=== PATIENT | female | born 1955 | race Caucasian/White ===

== ENCOUNTER 2021-03-18 13:25 | Inpatient (IN) | payer BC ==
[2021-03-18] MEDS ORDERED: DEXAMETHASONE SOD PHOSPHATE 10 MG/ML 1 ML VIAL IVP STA (18:19)
[2021-03-18] MEDS ORDERED: IBUPROFEN 600 MG TAB PO STA (18:29)
[2021-03-18 18:40] LABS: Basophils % (A) 0 %; Eosinophils % (A) 0 %; HCT 40.9 % (34.0-46.0); HGB 14.5 gm/dL (11.4-16.0); Lymphocytes # (A) 0.8 k/uL (1.0-4.8); Lymphocytes % (A) 16 %; MCH 31.1 pg (25.0-35.0); MCHC 35.4 g/dL (31.0-37.0); MCV 87.8 fL (80.0-100.0); Mean Platelet Volume 7.8; Monocytes # (A) 0.3 k/uL (0-1.0); Monocytes % (A) 6 %; Neutrophils # (A) 3.9 k/uL (1.3-7.7); Neutrophils % (A) 75 %; Platelet Count 287 k/uL (150-450); RBC 4.66 m/uL (3.80-5.40); RDW 13.1 % (11.5-15.5); WBC 5.2 k/uL (3.8-10.6)
[2021-03-18 18:55] LABS: Albumin 3.5 g/dL (3.5-5.0); Calcium 9.2 mg/dL (8.4-10.2); Potassium 4.5 mmol/L (3.5-5.1); Total Bilirubin 0.3 mg/dL (0.2-1.3); Total Protein 6.3 g/dL (6.3-8.2)
--- NOTE | 2021-03-18 19:06 | XR ---
EXAMINATION TYPE: XR chest 2V DATE OF EXAM: 03/18/2021 COMPARISON: NONE HISTORY: COVID TECHNIQUE: Frontal and lateral views of the chest are obtained. FINDINGS: Reticular and some patchy opacities over lower lungs, left greater than right. No effusion or pneumothorax. The heart is not enlarged. The pulmonary vasculature is within normal limits. IMPRESSION: Reticular and some minimal opacities in the lower lungs bilaterally.
[2021-03-18 19:17] LABS: C Reactive Protein 18.6 mg/dL (<1.0)
[2021-03-18] MEDS ORDERED: NALOXONE 0.4 MG/ML 1 ML VIAL IV PRN (19:54)
[2021-03-18] MEDS ORDERED: IPRATROPIUM-ALBUTEROL 3 ML NEB INHALATION SCH (20:00)
--- NOTE | 2021-03-18 20:01 | ED ---
SOB HPI - General Chief Complaint: Shortness of Breath Stated Complaint: Covid, wants BAM Time Seen by Provider: 03/18/21 17:51 Source: patient, RN notes reviewed Mode of arrival: ambulatory Limitations: no limitations - History of Present Illness Initial Comments: Patient is a 65-year-old female that presents to the emergency department complaining of shortness of breath. She has been having cold-like symptoms for the past 12-13 days. Patient notes that she feels like her oxygen is low. Patient notes no other issues or complaints. She was otherwise well-appearing. She denied any chest pain headache nausea vomiting diarrhea constipation fever fatigue chills. - Related Data Home Medications Medication Instructions Recorded Confirmed Atorvastatin [Lipitor] 40 mg PO DAILY 09/28/15 03/18/21 Glimepiride [Amaryl] 1 mg PO BID 09/28/15 03/18/21 metFORMIN HCL [Glucophage] 1,000 mg PO BID 09/28/15 03/18/21 Levothyroxine Sodium [Synthroid] 75 mcg PO DAILY 03/18/21 03/18/21 Semaglutide [Ozempic] 0.25 mg SQ SA 03/18/21 03/18/21 ramipriL [Altace] 2.5 mg PO HS 03/18/21 03/18/21 Allergies Allergy/AdvReac Type Severity Reaction Status Date / Time onion Allergy Unknown Verified 03/18/21 19:18 Review of Systems ROS Statement: Those systems with pertinent positive or pertinent negative responses have been documented in the HPI. ROS Other: All systems not noted in ROS Statement are negative. Past Medical History Past Medical History: Diabetes Mellitus, Hyperlipidemia, Hypertension, Osteoarthritis (OA) Additional Past Medical History / Comment(s): BUNION LEFT FOOT History of Any Multi-Drug Resistant Organisms: None Reported Past Surgical History: Appendectomy, Orthopedic Surgery, Tonsillectomy Additional Past Surgical History / Comment(s): BRY FEET MULT SX, CYST REMOVED WRIST Past Anesthesia/Blood Transfusion Reactions: No Reported Reaction Past Psychological History: No Psychological Hx Reported Smoking Status: Never smoker Past Alcohol Use History: Occasional Past Drug Use History: None Reported - Past Family History Father Family Medical History: Cancer Additional Family Medical History / Comment(s): SKIN Sister(s) Family Medical History: Cancer Additional Family Medical History / Comment(s): SKIN General Exam Limitations: no limitations General appearance: alert, in no apparent distress Head exam: Present: atraumatic, normocephalic, normal inspection Eye exam: Present: normal appearance, PERRL, EOMI. Absent: scleral icterus, conjunctival injection, periorbital swelling ENT exam: Present: normal exam, mucous membranes moist Neck exam: Present: normal inspection Respiratory exam: Present: normal lung sounds bilaterally. Absent: respiratory distress, wheezes, rales, rhonchi, stridor Cardiovascular Exam: Present: regular rate, normal rhythm, normal heart sounds. Absent: systolic murmur, diastolic murmur, rubs, gallop, clicks Extremities exam: Present: normal inspection, full ROM, normal capillary refill. Absent: tenderness, pedal edema, joint swelling, calf tenderness Neurological exam: Present: alert, oriented X3 Psychiatric exam: Present: normal affect, normal mood Skin exam: Present: warm, dry, intact, normal color. Absent: rash Course Vital Signs 03/18/21 03/18/21 15:35 17:58 Temperature 99.1 F 98.9 F Pulse Rate 109 H 99 Respiratory 20 22 Rate Blood Pressure 105/73 127/73 O2 Sat by Pulse 88 L 88 L Oximetry Medical Decision Making - Medical Decision Making 85-year-old female with Covid like symptoms for the past 1213 days. Covid test, labs, chest x-ray ordered. Covid test positive. Patient does not meet criteria for monoclonal antibodies due to low oxygen saturation room air 88. Patient is also symptomatic for longer than 10 days. 2 L of oxygen via nasal cannula ordered. Oxygen saturation 93-94%. Chest x-ray showed bilateral patchy infiltrates consistent with Covid. Case discussed with Dr. Bryant, patient will be admitted to hospital. Dr. Messina was consulted, wants pulmonology on consult. - Lab Data Result diagrams: 03/18/21 18:27 03/18/21 18:27 Lab Results 03/18/21 03/18/21 03/18/21 Range/Units 15:43 18:27 18:27 WBC 5.2 (3.8-10.6) k/uL RBC 4.66 (3.80-5.40) m/uL Hgb 14.5 (11.4-16.0) gm/dL Hct 40.9 (34.0-46.0) % MCV 87.8 (80.0-100.0) fL MCH 31.1 (25.0-35.0) pg MCHC 35.4 (31.0-37.0) g/dL RDW 13.1 (11.5-15.5) % Plt Count 287 (150-450) k/uL MPV 7.8 Neutrophils % 75 % Lymphocytes % 16 % Monocytes % 6 % Eosinophils % 0 % Basophils % 0 % Neutrophils # 3.9 (1.3-7.7) k/uL Lymphocytes # 0.8 L (1.0-4.8) k/uL Monocytes # 0.3 (0-1.0) k/uL Eosinophils # 0.0 (0-0.7) k/uL Basophils # 0.0 (0-0.2) k/uL Sodium 131 L (137-145) mmol/L Potassium 4.5 (3.5-5.1) mmol/L Chloride 95 L (98-107) mmol/L Carbon Dioxide 28 (22-30) mmol/L Anion Gap 8 mmol/L BUN 22 H (7-17) mg/dL Creatinine 0.89 (0.52-1.04) mg/dL Est GFR (CKD-EPI)AfAm 79 (>60 ml/min/1.73 sqM) Est GFR (CKD-EPI)NonAf 69 (>60 ml/min/1.73 sqM) Glucose 231 H (74-99) mg/dL Calcium 9.2 (8.4-10.2) mg/dL Total Bilirubin 0.3 (0.2-1.3) mg/dL AST 43 H (14-36) U/L ALT 28 (4-34) U/L Alkaline Phosphatase 87 (38-126) U/L Lactate Dehydrogenase 1108 H (313-618) U/L C-Reactive Protein 18.6 H (<1.0) mg/dL Total Protein 6.3 (6.3-8.2) g/dL Albumin 3.5 (3.5-5.0) g/dL Coronavirus (PCR) Detected A (Not Detectd) - Radiology Data Radiology results: report reviewed, image reviewed Chest x-ray: Reticular and some minimal opacities in the lower lungs bi laterally. Disposition Clinical Impression: COVID, Hypoxia Disposition: ADMITTED IP TO THIS [facility] Condition: Stable Is patient prescribed a controlled substance at d/c from ED?: No Referrals: Karely Bryant DO [Primary Care Provider] - 1-2 days Time of Disposition: 20:01
[2021-03-18] MEDS: SODIUM CHLORIDE 0.9% 1,000 ML IV SCH (21:27)
[2021-03-19] MEDS ORDERED: DEXAMETHASONE SOD PHOSPHATE 10 MG/ML 1 ML VIAL IVP SCH (09:00)
[2021-03-19] MEDS: ASCORBIC ACID 500 MG TAB PO SCH (09:19)
[2021-03-19] MEDS: SODIUM CHLORIDE 0.9% 1,000 ML IV SCH ×3 (09:19→22:05)
[2021-03-19] MEDS: LEVOTHYROXINE 75 MCG TAB PO SCH (09:19)
[2021-03-19] MEDS: DEXAMETHASONE SOD PHOSPHATE 10 MG/ML 1 ML VIAL IVP SCH (09:20)
[2021-03-19] MEDS: ENOXAPARIN 40 MG/0.4 ML SYRINGE SQ SCH (09:20)
[2021-03-19] MEDS ORDERED: ALBUTEROL HFA INHALER INHALATION PRN (11:04)
[2021-03-19] MEDS: ZINC SULFATE 220 MG CAP PO SCH (11:58)
[2021-03-19] MEDS: PANTOPRAZOLE 40 MG/10 ML VIAL IVP SCH (11:58)
[2021-03-19] MEDS: CHOLECALCIFEROL 25 MCG (1000 IU) TABLET PO SCH (11:59)
[2021-03-19 12:44] LABS: African American GFR (CKD) >90 (>60 ml/min/1.73 sqM); Anion Gap 9 mmol/L; Blood Urea Nitrogen 27 mg/dL (7-17); Calcium 8.8 mg/dL (8.4-10.2); Carbon Dioxide 24 mmol/L (22-30); Chloride 99 mmol/L (98-107); Glucose 432 mg/dL (74-99); Non-African American GFR(CKD) 82 (>60 ml/min/1.73 sqM); Sodium 132 mmol/L (137-145)
[2021-03-19] MEDS: ALBUTEROL HFA INHALER INHALATION SCH ×3 (12:51→19:30)
[2021-03-19 13:31] LABS: Glucose,Whole Blood 464 mg/dL (75-99)
[2021-03-19] MEDS ORDERED: INSULIN ASPART (NovoLOG) 100 UNIT/ML VIAL SQ ONE (14:00)
[2021-03-19] MEDS: INSULIN ASPART (NovoLOG) 100 UNIT/ML VIAL SQ SCH ×3 (14:04→22:04)
--- NOTE | 2021-03-19 14:52 | P.CNPUL ---
History of Present Illness Consult date: 03/19/21 Reason for consult: dyspnea, pneumonia History of present illness: 65-year-old female patient presented with symptoms of shortness of breath and patient was diagnosed having COVID 19 to pneumonia. The patient symptoms started approximately 11 days ago. She also had diminished appetite, weakness, tiredness, fatigue, cough along with some shortness of breath. The chest x-ray showed reticular and some minimal opacities in the lower lung merino bilaterally. The patient was found to be hypoxic and the patient was placed on oxygen at 3 L and the oxygen flows being titrated to maintain saturation above 90%. Subsequently she was brought up to 6 L to maintain a good oxygen saturation. Her blood work shows a white cell count of 5.2 with a hemoglobin of 13.5 and a platelet count of 287. The d-dimer is at 0.3. The LDH level was 1108 and the CRP level is at 18.6, the rest of the electrolytes are all within normal limits. 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 Blood sugars are quite elevated at this point in time. The patient is receiving Decadron significant IV every 24 hours. Outpatient blood sugar management is through metformin 1 g twice a day and glimepiride 1 mg by mouth twice a day. The patient. The patient was already given 12 units of NovoLog insulin. Past Medical History Past Medical History: Diabetes Mellitus, Hyperlipidemia, Hypertension, Osteoarthritis (OA) Additional Past Medical History / Comment(s): BUNION LEFT FOOT History of Any Multi-Drug Resistant Organisms: None Reported Past Surgical History: Appendectomy, Orthopedic Surgery, Tonsillectomy Additional Past Surgical History / Comment(s): BRY FEET MULT SX, CYST REMOVED WRIST Past Anesthesia/Blood Transfusion Reactions: No Reported Reaction Past Psychological History: No Psychological Hx Reported Smoking Status: Never smoker Past Alcohol Use History: Occasional Past Drug Use History: None Reported - Past Family History Father Family Medical History: Cancer Additional Family Medical History / Comment(s): SKIN Sister(s) Family Medical History: Cancer Additional Family Medical History / Comment(s): SKIN Medications and Allergies Home Medications Medication Instructions Recorded Confirmed Type Atorvastatin [Lipitor] 40 mg PO DAILY 09/28/15 03/18/21 History Glimepiride [Amaryl] 1 mg PO BID 09/28/15 03/18/21 History metFORMIN HCL [Glucophage] 1,000 mg PO BID 09/28/15 03/18/21 History Levothyroxine Sodium [Synthroid] 75 mcg PO DAILY 03/18/21 03/18/21 History Semaglutide [Ozempic] 0.25 mg SQ SA 03/18/21 03/18/21 History ramipriL [Altace] 2.5 mg PO HS 03/18/21 03/18/21 History Allergies Allergy/AdvReac Type Severity Reaction Status Date / Time onion Allergy Unknown Verified 03/18/21 19:18 Physical Exam Vitals: Vital Signs Temp Pulse Resp BP Pulse Ox 03/19/21 13:37 98.1 F 84 18 127/65 86 L 03/19/21 06:13 98.1 F 68 18 115/74 95 03/19/21 02:52 85 20 127/87 94 L 03/18/21 21:37 55 L 17 113/67 100 03/18/21 17:58 98.9 F 99 22 127/73 88 L 03/18/21 15:35 99.1 F 109 H 20 105/73 88 L Intake and Output 03/18/21 03/19/21 03/19/21 22:59 06:59 14:59 Other: Weight 70.307 kg General appearance: alert, in no apparent distress, breathing is nonlabored and the patient is currently on 6 L of oxygen by nasal cannula Head exam: Present: atraumatic, normocephalic, normal inspection Eye exam: Present: normal appearance, PERRL, EOMI. Absent: scleral icterus, conjunctival injection, periorbital swelling ENT exam: Present: normal exam, mucous membranes moist Neck exam: Present: normal inspection Respiratory exam: Present: The patient has bilateral crackles in the mid and lower lung merino bilaterally Cardiovascular Exam: Present: regular rate, normal rhythm, normal heart sounds. Absent: systolic murmur, diastolic murmur, rubs, gallop, clicks Extremities exam: Present: normal inspection, full ROM, normal capillary refill. Absent: tenderness, pedal edema, joint swelling, calf tenderness Neurological exam: Present: alert, oriented X3 Psychiatric exam: Present: normal affect, normal mood Skin exam: Present: warm, dry, intact, normal color. Absent: rash Results - Laboratory Findings CBC and BMP: 03/18/21 18:27 03/19/21 11:54 PT/INR, D-dimer D-Dimer 0.39 mg/L FEU (<0.60) 03/18/21 20:07 Abnormal lab findings: Abnormal Labs 03/18/21 03/18/21 03/18/21 15:43 18:27 18:27 Lymphocytes # 0.8 L Sodium 131 L Chloride 95 L BUN 22 H Glucose 231 H POC Glucose (mg/dL) AST 43 H Lactate Dehydrogenase 1108 H C-Reactive Protein 18.6 H Coronavirus (PCR) Detected A 03/19/21 03/19/21 11:54 13:30 Lymphocytes # Sodium 132 L Chloride BUN 27 H Glucose 432 H POC Glucose (mg/dL) 464 H AST Lactate Dehydrogenase C-Reactive Protein Coronavirus (PCR) - Diagnostic Findings Chest x-ray: image reviewed Assessment and Plan Plan: 1 acute bilateral COVID 19 related pneumonia. This patient is not vaccinated. The patient became symptomatic approximately 11 days ago. The patient is presenting with worsening shortness of breath and currently the patient has hypoxic respiratory failure on 6 L of oxygen by nasal cannula 2 acute hypoxic respiratory failure secondary to above 3 elevated inflammatory markers including LDH, mildly elevated D dimers. Secondary to above. 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 Maintain a saturation above 90% currently on 6 L Monitor inflammatory markers and check a baseline pro-calcitonin level No need for any antibiotics at this point in time Initiate Decadron 6 mg IV every 24 hours The patient is outside the window for Remdesivir Monitor the blood sugar and give this patient 15 units of Levemir insulin along with a sliding scale coverage Multivitamins for COVID 19 Lovenox 40 mg for DVT prophylaxis Resume all medications We'll continue to follow.
[2021-03-19] MEDS: INSULIN DETEMIR (LEVEMIR) 100 UNIT/ML SYR SQ SCH (16:53)
[2021-03-19 18:03] LABS: Glucose,Whole Blood 326 mg/dL (75-99)
--- NOTE | 2021-03-19 18:46 | P.HPIM ---
History of Present Illness H&P Date: 03/19/21 Chief Complaint: Worsening dyspnea This is 65-year-old female with past medical history of diabetes mellitus, hyperlipidemia, hypertension, osteoarthritis, no smoking history presented to the ER with worsening dyspnea 10 days accompanied by loss of appetite, fatigue, cough. Denies fevers or sweats. Denies muscle aches. On admission patient was febrile with temperature 99.1, WBC 5.2, tachycardic, cachectic, maintaining O2 sats of 88% on room air. Patient's respiratory status has further worsened and currently maintaining O2 sats of mid 90s on 3 L nasal cannula. Displays exertional dyspnea after ambulating from [place]. Coronavirus PCR positive. D-dimer 0.39, LDH 1108, CRP 18.6. Chest x-ray reporting reticular and some minimal patchy opacity's over bilateral lower lungs, left greater than right. Hemoglobin 14.5, platelets 287. Sodium currently 132, potassium 5, BUN 27, creatinine 0.77. A.m. Accu-Chek currently being obtained, the blood sugar 231 last night. Denies chest pain, palpitations. Review of Systems ROS Statement: Those systems with pertinent positive or pertinent negative responses have been documented in the HPI. ROS Other: All systems not noted in ROS Statement are negative. Past Medical History Past Medical History: Diabetes Mellitus, Hyperlipidemia, Hypertension, Osteoarthritis (OA) Additional Past Medical History / Comment(s): BUNION LEFT FOOT History of Any Multi-Drug Resistant Organisms: None Reported Past Surgical History: Appendectomy, Orthopedic Surgery, Tonsillectomy Additional Past Surgical History / Comment(s): BRY FEET MULT SX, CYST REMOVED WRIST Past Anesthesia/Blood Transfusion Reactions: No Reported Reaction Past Psychological History: No Psychological Hx Reported Smoking Status: Never smoker Past Alcohol Use History: Occasional Past Drug Use History: None Reported - Past Family History Father Family Medical History: Cancer Additional Family Medical History / Comment(s): SKIN Sister(s) Family Medical History: Cancer Additional Family Medical History / Comment(s): SKIN Medications and Allergies Home Medications Medication Instructions Recorded Confirmed Type Atorvastatin [Lipitor] 40 mg PO DAILY 09/28/15 03/18/21 History Glimepiride [Amaryl] 1 mg PO BID 09/28/15 03/18/21 History metFORMIN HCL [Glucophage] 1,000 mg PO BID 09/28/15 03/18/21 History Levothyroxine Sodium [Synthroid] 75 mcg PO DAILY 03/18/21 03/18/21 History Semaglutide [Ozempic] 0.25 mg SQ SA 03/18/21 03/18/21 History ramipriL [Altace] 2.5 mg PO HS 03/18/21 03/18/21 History Allergies Allergy/AdvReac Type Severity Reaction Status Date / Time onion Allergy Unknown Verified 03/18/21 19:18 Physical Exam Vitals: Vital Signs Temp Pulse Resp BP Pulse Ox 03/19/21 13:37 98.1 F 84 18 127/65 86 L 03/19/21 06:13 98.1 F 68 18 115/74 95 03/19/21 02:52 85 20 127/87 94 L 03/18/21 21:37 55 L 17 113/67 100 PHYSICAL EXAM: VITAL SIGNS: As above GENERAL: Sitting up on stretcher, no acute distress HEENT: Conjunctivae normal. eyes normal. Oral mucosa dry NECK: No JVD. No thyroid enlargement. No LNs CARDIOVASCULAR: S1, S2 regular.. No murmur RESPIRATION: Breath sounds diminished in the bases. ABDOMEN: Soft, nontender . No guarding. no masses palpable. Bowel sounds heard. LEGS: No edema. no swelling PSYCHIATRY: Alert and oriented X3, mood and affect normal. NERVOUS SYSTEM: Cranial N 2-12 grossly normal. Moves all 4 limbs. No focal deficits. Strength and sensation grossly intact.. Skin: Warm, dry, no rash Results CBC & Chem 7: 03/18/21 18:27 03/19/21 11:54 Labs: Abnormal Lab Results - Last 24 Hours (Table) 03/18/21 03/18/21 03/19/21 Range/Units 18:27 18:27 11:54 Lymphocytes # 0.8 L (1.0-4.8) k/uL Sodium 131 L 132 L (137-145) mmol/L Chloride 95 L (98-107) mmol/L BUN 22 H 27 H (7-17) mg/dL Glucose 231 H 432 H (74-99) mg/dL POC Glucose (mg/dL) (75-99) mg/dL AST 43 H (14-36) U/L Lactate Dehydrogenase 1108 H (313-618) U/L C-Reactive Protein 18.6 H (<1.0) mg/dL 03/19/21 03/19/21 Range/Units 13:30 17:59 Lymphocytes # (1.0-4.8) k/uL Sodium (137-145) mmol/L Chloride (98-107) mmol/L BUN (7-17) mg/dL Glucose (74-99) mg/dL POC Glucose (mg/dL) 464 H 326 H (75-99) mg/dL AST (14-36) U/L Lactate Dehydrogenase (313-618) U/L C-Reactive Protein (<1.0) mg/dL Assessment and Plan Assessment: Acute COVID-19 pneumonia Acute hypoxic respiratory failure secondary to the above Hyponatremia, mild Diabetes mellitus, hyperglycemic- Hypothyroidism Hyperlipidemia Plan: Continue on current medication regime ,monitoring and symptomatic treatme nt. Covid cocktail initiated with Decadron IV push ordered. A.m. Accu-Chek being obtained. NovoLog sliding scale, lantus ordered. Pulmonary consult in place. The impression and plan of care has been dictated as directed. : I performed a history and examination of this patient, discussed the same with the dictator. I agree with the dictator's note ,documented as a scribe. Any additional findings or plans will be noted.
[2021-03-19 21:52] LABS: Glucose,Whole Blood 282 mg/dL (75-99)
[2021-03-19] MEDS: lisinopriL 10 MG TAB PO SCH (22:04)
[2021-03-19] MEDS: ATORVASTATIN 40 MG TAB PO SCH (22:04)
[2021-03-20] MEDS: SODIUM CHLORIDE 0.9% 1,000 ML IV SCH ×2 (04:56→12:34)
[2021-03-20] MEDS: ACETAMINOPHEN TAB 325 MG TAB PO PRN (05:00)
[2021-03-20] MEDS: LEVOTHYROXINE 75 MCG TAB PO SCH (05:48)
[2021-03-20 07:27] LABS: Glucose,Whole Blood 169 mg/dL (75-99)
[2021-03-20] MEDS: PANTOPRAZOLE 40 MG/10 ML VIAL IVP SCH (07:59)
[2021-03-20] MEDS: DEXAMETHASONE SOD PHOSPHATE 10 MG/ML 1 ML VIAL IVP SCH (08:00)
[2021-03-20] MEDS: INSULIN ASPART (NovoLOG) 100 UNIT/ML VIAL SQ SCH ×4 (08:00→21:24)
[2021-03-20] MEDS: INSULIN DETEMIR (LEVEMIR) 100 UNIT/ML SYR SQ SCH (08:00)
[2021-03-20] MEDS: CHOLECALCIFEROL 25 MCG (1000 IU) TABLET PO SCH (08:01)
[2021-03-20] MEDS: ENOXAPARIN 40 MG/0.4 ML SYRINGE SQ SCH (08:01)
[2021-03-20] MEDS: ZINC SULFATE 220 MG CAP PO SCH (08:01)
[2021-03-20] MEDS: ASCORBIC ACID 500 MG TAB PO SCH (08:01)
[2021-03-20] MEDS: ALBUTEROL HFA INHALER INHALATION SCH ×4 (09:01→19:02)
[2021-03-20 09:38] LABS: C Reactive Protein 7.1 mg/dL (0.00-0.80)
[2021-03-20] MEDS ORDERED: INSULIN DETEMIR (LEVEMIR) 100 UNIT/ML SYR SQ ONE (10:36)
--- NOTE | 2021-03-20 10:44 | P.PN ---
Subjective Progress Note Date: 03/20/21 This is 65-year-old female with past medical history of diabetes mellitus, hyperlipidemia, hypertension, osteoarthritis, no smoking history presented to the ER with worsening dyspnea 10 days accompanied by loss of appetite, fatigue, cough. Denies fevers or sweats. Denies muscle aches. On admission patient was febrile with temperature 99.1, WBC 5.2, tachycardic, cachectic, maintaining O2 sats of 88% on room air. Patient's respiratory status has further worsened and currently maintaining O2 sats of mid 90s on 3 L nasal cannula. Displays exertional dyspnea after ambulating from [place]. Coronavirus PCR positive. D-dimer 0.39, LDH 1108, CRP 18.6. Chest x-ray reporting reticular and some minimal patc hy opacity's over bilateral lower lungs, left greater than right. Hemoglobin 14.5, platelets 287. Sodium currently 132, potassium 5, BUN 27, creatinine 0.77. A.m. Accu-Chek currently being obtained, the blood sugar 231 last night. Denies chest pain, palpitations. 03/20/2021 continues on covid cocktail .oxygen requirements worsened, currently requiring 10 L high flow nasal cannula to maintain O2 sats in the high 80s to low 90s. Reports had coughing spells last night but no cough this morning .exertional shortness of breath .Denies chest pain, palpitations. Afebrile. Ambulatory markers improving with the exception of mild increase in d- dimer.Calcitonin minimally elevated, 0.12. BMP pending. Blood sugars better improving. Objective - Vital Signs Vital signs: Vital Signs Temp 98.0 F 03/20/21 05:04 Pulse 79 03/20/21 05:04 Resp 20 03/20/21 05:04 BP 107/65 03/20/21 05:04 Pulse Ox 93 L 03/20/21 09:01 Intake & Output 03/19/21 03/20/21 03/20/21 18:59 06:59 18:59 Weight 70.307 kg Other: # Voids 1 # Bowel Movements 0 - Exam PHYSICAL EXAM: VITAL SIGNS: As above GENERAL: Alert and oriented 3, Sitting up in bed, no acute distress HEENT: Conjunctivae normal. eyes normal. Oral mucosa moist. NECK: No JVD. No thyroid enlargement. No LNs CARDIOVASCULAR: S1, S2 regular. No murmur RESPIRATION: Breath sounds diminished in the bases, fine bibasilar crackles. ABDOMEN: Soft, nontender . No guarding. no masses palpable. Bowel sounds heard. LEGS: No edema. no swelling NERVOUS SYSTEM: Cranial N 2-12 grossly normal. No focal deficits. Strength and sensation grossly intact.. Skin: Warm, dry, no rash - Labs CBC & Chem 7: 03/18/21 18:27 03/19/21 11:54 Labs: Abnormal Lab Results - Last 24 Hours (Table) 03/19/21 03/19/21 03/19/21 Range/Units 11:54 11:54 13:30 Sodium 132 L (137-145) mmol/L BUN 27 H (7-17) mg/dL Glucose 432 H (74-99) mg/dL POC Glucose (mg/dL) 464 H (75-99) mg/dL Lactate Dehydrogenase (120-246) U/L C-Reactive Protein (0.00-0.80) mg/dL Procalcitonin 0.12 H (0.02-0.09) ng/mL 03/19/21 03/19/21 03/20/21 Range/Units 17:59 21:51 04:48 Sodium (137-145) mmol/L BUN (7-17) mg/dL Glucose (74-99) mg/dL POC Glucose (mg/dL) 326 H 282 H (75-99) mg/dL Lactate Dehydrogenase 493 H (120-246) U/L C-Reactive Protein 7.10 H (0.00-0.80) mg/dL Procalcitonin (0.02-0.09) ng/mL 03/20/21 Range/Units 07:26 Sodium (137-145) mmol/L BUN (7-17) mg/dL Glucose (74-99) mg/dL POC Glucose (mg/dL) 169 H (75-99) mg/dL Lactate Dehydrogenase (120-246) U/L C-Reactive Protein (0.00-0.80) mg/dL Procalcitonin (0.02-0.09) ng/mL Assessment and Plan Assessment: Acute COVID-19 pneumonia Acute hypoxic respiratory failure secondary to the above Hyponatremia, mild Diabetes mellitus, hyperglycemic- Hypothyroidism Hyperlipidemia Plan: Continue on current medication regime ,monitoring and symptomatic treatment. Labs pending. Maintain Covid cocktail. Increase Lantus with close monitoring of Accu-Cheks. Prognosis guarded given multiple complex medical issues. The impression and plan of care has been dictated as directed. : I performed a history and examination of this patient, discussed the same with the dictator. I agree with the dictator's note ,documented as a scribe. Any additional findings or plans will be noted.
[2021-03-20 11:36] LABS: Glucose,Whole Blood 384 mg/dL (75-99)
--- NOTE | 2021-03-20 12:33 | P.PN ---
Subjective Progress Note Date: 03/20/21 65-year-old female patient presented with symptoms of shortness of breath and patient was diagnosed having COVID 19 to pneumonia. The patient symptoms started approximately 11 days ago. She also had diminished appetite, weakness, tiredness, fatigue, cough along with some shortness of breath. The chest x-ray showed reticular and some minimal opacities in the lower lung merino bilaterally. The patient was found to be hypoxic and the patient was placed on oxygen at 3 L and the oxygen flows being titrated to maintain saturation above 90%. Subsequently she was brought up to 6 L to maintain a good oxygen saturation. Her blood work shows a white cell count of 5.2 with a hemoglobin of 13.5 and a platelet count of 287. The d-dimer is at 0.3. The LDH level was 1108 and the CRP level is at 18.6, the rest of the electrolytes are all within normal limits. 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 Blood sugars are quite elevated at this point in time. The patient is receiving Decadron significant IV every 24 hours. Outpatient blood sugar management is through metformin 1 g twice a day and glimepiride 1 mg by mouth twice a day. The patient. The patient was already given 12 units of NovoLog insulin. 03/20/2021, I'm seeing the patient for a follow-up. The patient was Hospital as yesterday for complications related to COVID 19 related pneumonia. The patient was initially on 3 L of oxygen and she was brought up to 6 L and currently she is on 10 L of oxygen by nasal cannula. She is still short of breath with activity and mobility. Her inflammatory markers showed a LDH level of 493 with a CRP level of 7.1. Her levels are improved compared to yesterday. The patient otherwise has a d-dimer of 0.4. The rest of the day blood work shows a mild component of hyperglycemia and the patient is currently on Levemir insulin 20 units for blood sugar control in combination with sliding scale NovoLog. She is on 40 mg of Lovenox for DVT prophylaxis. She remains on Decadron at a dose of 6 mg IV every 24 hours. Objective - Vital Signs Vital signs: Vital Signs Temp 97.7 F 03/20/21 10:00 Pulse 87 03/20/21 10:00 Resp 18 03/20/21 10:00 BP 120/71 03/20/21 10:00 Pulse Ox 95 03/20/21 10:00 Intake & Output 03/19/21 03/20/21 03/20/21 18:59 06:59 18:59 Weight 70.307 kg Other: # Voids 1 # Bowel Movements 0 - Exam General appearance: alert, in no apparent distress, breathing is nonlabored and the patient is currently on 10 L of oxygen by nasal cannula Head exam: Present: atraumatic, normocephalic, normal inspection Eye exam: Present: normal appearance, PERRL, EOMI. Absent: scleral icterus, conjunctival injection, periorbital swelling ENT exam: Present: normal exam, mucous membranes moist Neck exam: Present: normal inspection Respiratory exam: Present: The patient has bilateral crackles in the mid and lower lung merino bilaterally Cardiovascular Exam: Present: regular rate, normal rhythm, normal heart sounds. Absent: systolic murmur, diastolic murmur, rubs, gallop, clicks Extremities exam: Present: normal inspection, full ROM, normal capillary refill. Absent: tenderness, pedal edema, joint swelling, calf tenderness Neurological exam: Present: alert, oriented X3 Psychiatric exam: Present: normal affect, normal mood Skin exam: Present: warm, dry, intact, normal color. Absent: rash - Labs CBC & Chem 7: 03/18/21 18:27 03/19/21 11:54 Labs: Abnormal Lab Results - Last 24 Hours (Table) 03/19/21 03/19/21 03/19/21 Range/Units 11:54 11:54 13:30 Sodium 132 L (137-145) mmol/L BUN 27 H (7-17) mg/dL Glucose 432 H (74-99) mg/dL POC Glucose (mg/dL) 464 H (75-99) mg/dL Lactate Dehydrogenase (120-246) U/L C-Reactive Protein (0.00-0.80) mg/dL Procalcitonin 0.12 H (0.02-0.09) ng/mL 03/19/21 03/19/21 03/20/21 Range/Units 17:59 21:51 04:48 Sodium (137-145) mmol/L BUN (7-17) mg/dL Glucose (74-99) mg/dL POC Glucose (mg/dL) 326 H 282 H (75-99) mg/dL Lactate Dehydrogenase 493 H (120-246) U/L C-Reactive Protein 7.10 H (0.00-0.80) mg/dL Procalcitonin (0.02-0.09) ng/mL 03/20/21 03/20/21 Range/Units 07:26 11:34 Sodium (137-145) mmol/L BUN (7-17) mg/dL Glucose (74-99) mg/dL POC Glucose (mg/dL) 169 H 384 H (75-99) mg/dL Lactate Dehydrogenase (120-246) U/L C-Reactive Protein (0.00-0.80) mg/dL Procalcitonin (0.02-0.09) ng/mL Assessment and Plan Plan: 1 acute bilateral COVID 19 related pneumonia. This patient is not vaccinated. The patient became symptomatic approximately 11 days ago. The patient is presenting with worsening shortness of breath and currently the patient has hypoxic respiratory failure on 10 L of oxygen by nasal cannula 2 acute hypoxic respiratory failure secondary to above 3 elevated inflammatory markers including LDH, mildly elevated D dimers. Secondary to above. 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 Maintain a saturation above 90% currently on 10 L Monitor inflammatory markers and check a baseline pro-calcitonin level due to inflammatory markers that in general improving including LDH and CRP. The pro- calcitonin level is low at 0.12. No need for any antibiotics at this point in time Initiate Decadron 6 mg IV every 24 hours The patient is outside the window for Remdesivir Monitor the blood sugar and give this patient 20 units of Levemir insulin along with a sliding scale coverage Multivitamins for COVID 19 Lovenox 40 mg for DVT prophylaxis Resume all medications We'll continue to follow.
[2021-03-20 16:50] LABS: Glucose,Whole Blood 261 mg/dL (75-99)
[2021-03-20 18:38] LABS: African American GFR (CKD) 93.4 (60.0-200.0); Anion Gap 17.6 mmol/L (10.00-18.00); BUN/Creat Ratio 29.18 Ratio (12.00-20.00); Blood Urea Nitrogen 22.7 mg/dL (9.0-27.0); Calcium 9.2 mg/dL (8.7-10.3); Carbon Dioxide 21.2 mmol/L (20.0-27.5); Non-African American GFR(CKD) 80.6 (60.0-200.0)
[2021-03-20 20:46] LABS: Glucose,Whole Blood 265 mg/dL (75-99)
[2021-03-20] MEDS: lisinopriL 10 MG TAB PO SCH (21:24)
[2021-03-20] MEDS: ATORVASTATIN 40 MG TAB PO SCH (21:24)
[2021-03-21] MEDS: SODIUM CHLORIDE 0.9% 1,000 ML IV SCH ×4 (05:30→21:41)
[2021-03-21] MEDS: LEVOTHYROXINE 75 MCG TAB PO SCH (06:08)
[2021-03-21 07:17] LABS: Glucose,Whole Blood 88 mg/dL (75-99)
[2021-03-21] MEDS: PANTOPRAZOLE 40 MG/10 ML VIAL IVP SCH (07:48)
[2021-03-21] MEDS: DEXAMETHASONE SOD PHOSPHATE 10 MG/ML 1 ML VIAL IVP SCH (07:49)
[2021-03-21] MEDS: ASCORBIC ACID 500 MG TAB PO SCH (07:49)
[2021-03-21] MEDS: ZINC SULFATE 220 MG CAP PO SCH (07:50)
[2021-03-21] MEDS: INSULIN ASPART (NovoLOG) 100 UNIT/ML VIAL SQ SCH ×4 (07:50→21:50)
[2021-03-21] MEDS: CHOLECALCIFEROL 25 MCG (1000 IU) TABLET PO SCH (07:50)
[2021-03-21] MEDS: ENOXAPARIN 40 MG/0.4 ML SYRINGE SQ SCH (07:50)
[2021-03-21] MEDS: INSULIN DETEMIR (LEVEMIR) 100 UNIT/ML SYR SQ SCH (07:57)
[2021-03-21] MEDS: ALBUTEROL HFA INHALER INHALATION SCH ×4 (08:29→19:26)
[2021-03-21 11:45] LABS: Glucose,Whole Blood 161 mg/dL (75-99)
[2021-03-21 11:59] LABS: African American GFR (CKD) 106.1 (60.0-200.0); Anion Gap 14.3 mmol/L (10.00-18.00); BUN/Creat Ratio 23.86 Ratio (12.00-20.00); Blood Urea Nitrogen 16.7 mg/dL (9.0-27.0); Calcium 8.4 mg/dL (8.7-10.3); Carbon Dioxide 22.7 mmol/L (20.0-27.5); Non-African American GFR(CKD) 91.6 (60.0-200.0); Potassium 4.2 mmol/L (3.5-5.5)
--- NOTE | 2021-03-21 13:18 | P.PN ---
Subjective Progress Note Date: 03/21/21 This is 65-year-old female with past medical history of diabetes mellitus, hyperlipidemia, hypertension, osteoarthritis, no smoking history presented to the ER with worsening dyspnea 10 days accompanied by loss of appetite, fatigue, cough. Denies fevers or sweats. Denies muscle aches. On admission patient was febrile with temperature 99.1, WBC 5.2, tachycardic, cachectic, maintaining O2 sats of 88% on room air. Patient's respiratory status has further worsened and currently maintaining O2 sats of mid 90s on 3 L nasal cannula. Displays exertional dyspnea after ambulating from [place]. Coronavirus PCR positive. D-dimer 0.39, LDH 1108, CRP 18.6. Chest x-ray reporting reticular and some minimal patc hy opacity's over bilateral lower lungs, left greater than right. Hemoglobin 14.5, platelets 287. Sodium currently 132, potassium 5, BUN 27, creatinine 0.77. A.m. Accu-Chek currently being obtained, the blood sugar 231 last night. Denies chest pain, palpitations. 03/20/2021 continues on covid cocktail .oxygen requirements worsened, currently requiring 10 L high flow nasal cannula to maintain O2 sats in the high 80s to low 90s. Reports had coughing spells last night but no cough this morning .exertional shortness of breath .Denies chest pain, palpitations. Afebrile. Ambulatory markers improving with the exception of mild increase in d- dimer.Calcitonin minimally elevated, 0.12. BMP pending. Blood sugars better improving. 03/21/21 maintaining O2 sats in the low 90s on 2 L nasal cannula. Reports minimal nonproductive cough, exertional shortness of breath, loose stools. Blood sugars controlled .Denies chest pain, palpitations. Denies diaphoresis. Afebrile. Objective - Vital Signs Vital signs: Vital Signs Temp 98.2 F 03/21/21 10:10 Pulse 71 03/21/21 10:10 Resp 20 03/21/21 10:10 BP 135/73 03/21/21 10:10 Pulse Ox 90 L 03/21/21 10:10 Intake & Output 03/20/21 03/21/21 03/21/21 18:59 06:59 18:59 Intake Total 1080 Balance 1080 Intake: Oral 1080 Other: Voiding Method Toilet # Voids 3 3 # Bowel Movements 1 - Exam PHYSICAL EXAM: VITAL SIGNS: As above GENERAL: Alert and oriented 3, Sitting up in bed,NAD HEENT: Conjunctivae normal. eyes normal. Oral mucosa moist. NECK: Supple, No JVD. CARDIOVASCULAR: S1, S2 regular. No murmur RESPIRATION: Breath sounds diminished in the bases, fine bibasilar crackles. ABDOMEN: Soft, nontender . No guarding. no masses palpable. Bowel sounds heard. LEGS: No edema. no swelling NERVOUS SYSTEM: Cranial N 2-12 grossly normal. No focal deficits. Strength and sensation grossly intact. Skin: Warm, dry, no rash - Labs CBC & Chem 7: 03/18/21 18:27 03/21/21 06:55 Labs: Abnormal Lab Results - Last 24 Hours (Table) 03/20/21 03/20/21 03/20/21 Range/Units 04:48 16:49 20:45 BUN/Creatinine Ratio 29.18 H (12.00-20.00) Ratio Glucose 207 H (70-110) mg/dL POC Glucose (mg/dL) 261 H 265 H (75-99) mg/dL Calcium (8.7-10.3) mg/dL 03/21/21 03/21/21 Range/Units 06:55 11:35 BUN/Creatinine Ratio 23.86 H (12.00-20.00) Ratio Glucose (70-110) mg/dL POC Glucose (mg/dL) 161 H (75-99) mg/dL Calcium 8.4 L (8.7-10.3) mg/dL Assessment and Plan Assessment: Acute COVID-19 pneumonia Acute hypoxic respiratory failure secondary to the above Hyponatremia, mild, resolved Diabetes mellitus, hyperglycemic hemoglobin A1c pending, in addition to steroid contribution Hypothyroidism Hyperlipidemia Plan: Continue on current medication regime ,monitoring and symptomatic treatment. Continue Covid cocktail. close monitoring of Accu-Cheks .follow closely with pulmonary.Prognosis guarded given multiple complex medical issues. The impression and plan of care has been dictated as directed. : I performed a history and examination of this patient, discussed the same with the dictator. I agree with the dictator's note ,documented as a scribe. Any additional findings or plans will be noted.
--- NOTE | 2021-03-21 13:50 | P.PN ---
Subjective Progress Note Date: 03/21/21 65-year-old female patient presented with symptoms of shortness of breath and patient was diagnosed having COVID 19 to pneumonia. The patient symptoms started approximately 11 days ago. She also had diminished appetite, weakness, tiredness, fatigue, cough along with some shortness of breath. The chest x-ray showed reticular and some minimal opacities in the lower lung merino bilaterally. The patient was found to be hypoxic and the patient was placed on oxygen at 3 L and the oxygen flows being titrated to maintain saturation above 90%. Subsequently she was brought up to 6 L to maintain a good oxygen saturation. Her blood work shows a white cell count of 5.2 with a hemoglobin of 13.5 and a platelet count of 287. The d-dimer is at 0.3. The LDH level was 1108 and the CRP level is at 18.6, the rest of the electrolytes are all within normal limits. 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 Blood sugars are quite elevated at this point in time. The patient is receiving Decadron significant IV every 24 hours. Outpatient blood sugar management is through metformin 1 g twice a day and glimepiride 1 mg by mouth twice a day. The patient. The patient was already given 12 units of NovoLog insulin. 03/20/2021, I'm seeing the patient for a follow-up. The patient was Hospital as yesterday for complications related to COVID 19 related pneumonia. The patient was initially on 3 L of oxygen and she was brought up to 6 L and currently she is on 10 L of oxygen by nasal cannula. She is still short of breath with activity and mobility. Her inflammatory markers showed a LDH level of 493 with a CRP level of 7.1. Her levels are improved compared to yesterday. The patient otherwise has a d-dimer of 0.4. The rest of the day blood work shows a mild component of hyperglycemia and the patient is currently on Levemir insulin 20 units for blood sugar control in combination with sliding scale NovoLog. She is on 40 mg of Lovenox for DVT prophylaxis. She remains on Decadron at a dose of 6 mg IV every 24 hours. On 03/21/2021 patient seen in follow-up on Gen. medical surgical floor. She is generally weak, she still requiring high flow oxygen, remains on 9 L, her pulse ox is marginal at 91, does not appear to be in any significant distress, lung sounds reveal extensive crackles at the bilateral mid and lower lung zones. Occasional cough, no phlegm production, no chest pain. Patient has been afebr ile, hemodynamically she has been stable, last d-dimer from yesterday was within normal limits at 0.43, electrolyte and renal profile on today's labs are within normal limits, LDH is improving and is down to 493, and CRP is 7.10, pro calcitonin level was negative at 0.12, is on dexamethasone 6 mg daily, she is on inhaled bronchodilators, COVID-19 vitamins, and prophylactic dose of Lovenox 40 mg daily. Objective - Vital Signs Vital signs: Vital Signs Temp 98.2 F 03/21/21 10:10 Pulse 71 03/21/21 10:10 Resp 20 03/21/21 10:10 BP 135/73 03/21/21 10:10 Pulse Ox 90 L 03/21/21 10:10 Intake & Output 03/20/21 03/21/21 03/21/21 18:59 06:59 18:59 Intake Total 1080 Balance 1080 Intake: Oral 1080 Other: Voiding Method Toilet # Voids 3 3 # Bowel Movements 1 - Exam GENERAL EXAM: Alert, very pleasant 65 yo white female on 9 l/min with pulse ox of 91% comfortable in no apparent distress. HEAD: Normocephalic/atraumatic. EYES: Normal reaction of pupils, equal size. Conjunctiva pink, sclera white. NOSE: Clear with pink turbinates. THROAT: No erythema or exudates. NECK: No masses, no JVD, no thyroid enlargement, no adenopathy. CHEST: No chest wall deformity. Symmetrical expansion. LUNGS: Equal air entry with basilar rales CVS: Regular rate and rhythm, normal S1 and S2, no gallops, no murmurs, no rubs ABDOMEN: Soft, nontender. No hepatosplenomegaly, normal bowel sounds, no guarding or rigidity. EXTREMITIES: No clubbing, no edema, no cyanosis, 2+ pulses and upper and lower extremities. MUSCULOSKELETAL: Muscle strength and tone normal. SPINE: No scoliosis or deformity SKIN: No rashes CENTRAL NERVOUS SYSTEM: Alert and oriented -3. No focal deficits, tone is normal in all 4 extremities. PSYCHIATRIC: Alert and oriented -3. Appropriate affect. Intact judgment and insight. - Labs CBC & Chem 7: 03/18/21 18:27 03/21/21 06:55 Labs: Abnormal Lab Results - Last 24 Hours (Table) 03/20/21 03/20/21 03/20/21 Range/Units 04:48 16:49 20:45 BUN/Creatinine Ratio 29.18 H (12.00-20.00) Ratio Glucose 207 H (70-110) mg/dL POC Glucose (mg/dL) 261 H 265 H (75-99) mg/dL Calcium (8.7-10.3) mg/dL 03/21/21 03/21/21 Range/Units 06:55 11:35 BUN/Creatinine Ratio 23.86 H (12.00-20.00) Ratio Glucose (70-110) mg/dL POC Glucose (mg/dL) 161 H (75-99) mg/dL Calcium 8.4 L (8.7-10.3) mg/dL Assessment and Plan Plan: Assessment: #1. acute bilateral COVID 19 related pneumonia. This patient is not vaccinated. The patient became symptomatic approximately 11 days ago. The patient is presenting with worsening shortness of breath and currently the patient has hypoxic respiratory failure on 9 L of oxygen by nasal cannula #2. acute hypoxic respiratory failure secondary to above #3. elevated inflammatory markers including LDH, mildly elevated D dimers. Secondary to above. #4. diabetes mellitus with a component of steroid use hyperglycemia #5. hypothyroidism #6. hyperlipidemia Plan: Continue current medical treatment Continue Decadron, continue Lovenox Continue multivitamins Encourage patient to self-prone, and reposition self in bed Fio2 currently at 9 l Continue to wean to keep 02 sat at 90% Will contiue to follow patient's clinical course I performed a history & physical examination of the patient and discussed their management with my nurse practitioner, Jessica Leigh. I reviewed the nurse practitioner's note and agree with the documented findings and plan of care. Lung sounds are positive for diffuse crackles throughout the lung merino. The findings and the impression was discussed with the patient. I attest to the documentation by the nurse practitioner. Time with Patient: Less than 30
[2021-03-21 16:45] LABS: Glucose,Whole Blood 275 mg/dL (75-99)
[2021-03-21 20:58] LABS: Glucose,Whole Blood 242 mg/dL (75-99)
[2021-03-21] MEDS: ATORVASTATIN 40 MG TAB PO SCH (21:51)
[2021-03-21] MEDS: ACETAMINOPHEN TAB 325 MG TAB PO PRN (21:51)
[2021-03-21] MEDS: lisinopriL 10 MG TAB PO SCH (21:51)
[2021-03-22] MEDS: LEVOTHYROXINE 75 MCG TAB PO SCH (05:43)
[2021-03-22 07:41] LABS: Glucose,Whole Blood 59 mg/dL (75-99)
[2021-03-22] MEDS: ALBUTEROL HFA INHALER INHALATION SCH ×4 (07:49→19:24)
[2021-03-22 07:55] LABS: Glucose,Whole Blood 58 mg/dL (75-99)
[2021-03-22 08:21] LABS: Glucose,Whole Blood 85 mg/dL (75-99)
[2021-03-22] MEDS: INSULIN ASPART (NovoLOG) 100 UNIT/ML VIAL SQ SCH ×4 (08:30→21:27)
[2021-03-22] MEDS: ENOXAPARIN 40 MG/0.4 ML SYRINGE SQ SCH (08:36)
[2021-03-22] MEDS: ZINC SULFATE 220 MG CAP PO SCH (08:36)
[2021-03-22] MEDS: PANTOPRAZOLE 40 MG/10 ML VIAL IVP SCH (08:36)
[2021-03-22] MEDS: CHOLECALCIFEROL 25 MCG (1000 IU) TABLET PO SCH (08:36)
[2021-03-22] MEDS: ASCORBIC ACID 500 MG TAB PO SCH (08:36)
[2021-03-22] MEDS: DEXAMETHASONE SOD PHOSPHATE 10 MG/ML 1 ML VIAL IVP SCH (08:36)
[2021-03-22] MEDS: SODIUM CHLORIDE 0.9% 1,000 ML IV SCH ×4 (08:37→19:00)
[2021-03-22] MEDS: INSULIN DETEMIR (LEVEMIR) 100 UNIT/ML SYR SQ SCH ×2 (10:37→11:04)
[2021-03-22] MEDS: ALPRAZolam 0.5 MG TAB PO PRN ×2 (11:04→17:29)
--- NOTE | 2021-03-22 11:19 | P.PN ---
Subjective Progress Note Date: 03/22/21 65-year-old female patient presented with symptoms of shortness of breath and patient was diagnosed having COVID 19 to pneumonia. The patient symptoms started approximately 11 days ago. She also had diminished appetite, weakness, tiredness, fatigue, cough along with some shortness of breath. The chest x-ray showed reticular and some minimal opacities in the lower lung merino bilaterally. The patient was found to be hypoxic and the patient was placed on oxygen at 3 L and the oxygen flows being titrated to maintain saturation above 90%. Subsequently she was brought up to 6 L to maintain a good oxygen saturation. Her blood work shows a white cell count of 5.2 with a hemoglobin of 13.5 and a platelet count of 287. The d-dimer is at 0.3. The LDH level was 1108 and the CRP level is at 18.6, the rest of the electrolytes are all within normal limits. 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 Blood sugars are quite elevated at this point in time. The patient is receiving Decadron significant IV every 24 hours. Outpatient blood sugar management is through metformin 1 g twice a day and glimepiride 1 mg by mouth twice a day. The patient. The patient was already given 12 units of NovoLog insulin. 03/20/2021, I'm seeing the patient for a follow-up. The patient was Hospital as yesterday for complications related to COVID 19 related pneumonia. The patient was initially on 3 L of oxygen and she was brought up to 6 L and currently she is on 10 L of oxygen by nasal cannula. She is still short of breath with activity and mobility. Her inflammatory markers showed a LDH level of 493 with a CRP level of 7.1. Her levels are improved compared to yesterday. The patient otherwise has a d-dimer of 0.4. The rest of the day blood work shows a mild component of hyperglycemia and the patient is currently on Levemir insulin 20 units for blood sugar control in combination with sliding scale NovoLog. She is on 40 mg of Lovenox for DVT prophylaxis. She remains on Decadron at a dose of 6 mg IV every 24 hours. On 03/21/2021 patient seen in follow-up on Gen. medical surgical floor. She is generally weak, she still requiring high flow oxygen, remains on 9 L, her pulse ox is marginal at 91, does not appear to be in any significant distress, lung sounds reveal extensive crackles at the bilateral mid and lower lung zones. Occasional cough, no phlegm production, no chest pain. Patient has been afebr ile, hemodynamically she has been stable, last d-dimer from yesterday was within normal limits at 0.43, electrolyte and renal profile on today's labs are within normal limits, LDH is improving and is down to 493, and CRP is 7.10, pro calcitonin level was negative at 0.12, is on dexamethasone 6 mg daily, she is on inhaled bronchodilators, COVID-19 vitamins, and prophylactic dose of Lovenox 40 mg daily. On today's evaluation, on 03/22/2021 patient is seen in follow-up on medical surgical floor, she is currently on 15 L per high flow nasal cannula and 100% nonrebreather mask, her oxygen requirement has increased since yesterday, she feels more short of breath but not acute distress, she is resting in bed, she is awake and alert, she is not talking much, she has been get not to the bedside co mmode, she has been trying to reposition herself in bed, but she is unable to prone, lung sounds reveal diffuse coarse crackles at bilateral bases, repeat chest x-ray and blood work for today are pending, she is currently on Decadron, prophylactic Lovenox, COVID-19 vitamins, and was not a candidate for Remdesivir, she is not vaccinated against COVID-19. Objective - Vital Signs Vital signs: Vital Signs Temp 98.2 F 03/22/21 09:51 Pulse 87 03/22/21 09:51 Resp 24 03/22/21 09:51 BP 150/86 03/22/21 09:51 Pulse Ox 93 L 03/22/21 09:51 Intake & Output 03/21/21 03/22/21 03/22/21 18:59 06:59 18:59 Other: Voiding Method Toilet # Voids 3 2 2 - Exam GENERAL EXAM: Alert, very pleasant 65 yo white female on 15 l/min and 100% nonrebreather mask with pulse ox of 91% comfortable in no apparent distress. HEAD: Normocephalic/atraumatic. EYES: Normal reaction of pupils, equal size. Conjunctiva pink, sclera white. NOSE: Clear with pink turbinates. THROAT: No erythema or exudates. NECK: No masses, no JVD, no thyroid enlargement, no adenopathy. CHEST: No chest wall deformity. Symmetrical expansion. LUNGS: Equal air entry with basilar rales CVS: Regular rate and rhythm, normal S1 and S2, no gallops, no murmurs, no rubs ABDOMEN: Soft, nontender. No hepatosplenomegaly, normal bowel sounds, no guarding or rigidity. EXTREMITIES: No clubbing, no edema, no cyanosis, 2+ pulses and upper and lower extremities. MUSCULOSKELETAL: Muscle strength and tone normal. SPINE: No scoliosis or deformity SKIN: No rashes CENTRAL NERVOUS SYSTEM: Alert and oriented -3. No focal deficits, tone is normal in all 4 extremities. PSYCHIATRIC: Alert and oriented -3. Appropriate affect. Intact judgment and insight. - Labs CBC & Chem 7: 03/18/21 18:27 03/21/21 06:55 Labs: Abnormal Lab Results - Last 24 Hours (Table) 03/21/21 03/21/21 03/21/21 Range/Units 06:55 11:35 15:25 BUN/Creatinine Ratio 23.86 H (12.00-20.00) Ratio POC Glucose (mg/dL) 161 H (75-99) mg/dL Hemoglobin A1c 6.5 H (4.0-6.0) % Calcium 8.4 L (8.7-10.3) mg/dL 03/21/21 03/21/21 03/22/21 Range/Units 16:43 20:57 07:33 BUN/Creatinine Ratio (12.00-20.00) Ratio POC Glucose (mg/dL) 275 H 242 H 59 L (75-99) mg/dL Hemoglobin A1c (4.0-6.0) % Calcium (8.7-10.3) mg/dL 03/22/21 Range/Units 07:53 BUN/Creatinine Ratio (12.00-20.00) Ratio POC Glucose (mg/dL) 58 L (75-99) mg/dL Hemoglobin A1c (4.0-6.0) % Calcium (8.7-10.3) mg/dL Assessment and Plan Plan: Assessment: #1. acute bilateral COVID 19 related pneumonia. This patient is not vaccinated. The patient became symptomatic approximately 11 days ago. The patient is presenting with worsening shortness of breath and currently the patient has hypoxic respiratory failure on 9 L of oxygen by nasal cannula. Patient was outside the window for Remdesivir, due to progressive hypoxia. She will be started on Baricitinib today on 03/22/2021 #2. Acute hypoxic respiratory failure secondary to above #3. Elevated inflammatory markers including LDH, mildly elevated D dimers. Secondary to above. #4. 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 Hypothyroidism #6. Hyperlipidemia Plan: Continue current medical treatment Continue Decadron, continue Lovenox Continue multivitamins Patient is currently requiring 15 L per high flow nasal cannula and 100% nonrebreather mask We will escalate her treatment and start her on Baricitinib Will contiue to follow patient's clinical course Fofllow up chest x-ray, inflammatory markers for today and tomorrow I for today and tomorro performed a history & physical examination of the patient and discussed their management with my nurse practitioner, Jessica Leigh. I reviewed the nurse practitioner's note and agree with the documented findings and plan of care. Lung sounds are positive for diffuse crackles throughout the lung merino. The findings and the impression was discussed with the patient. I attest to the documentation by the nurse practitioner. Time with Patient: Less than 30
[2021-03-22 11:20] LABS: Glucose,Whole Blood 164 mg/dL (75-99)
--- NOTE | 2021-03-22 11:20 | P.PN ---
Subjective Progress Note Date: 03/22/21 This is 65-year-old female with past medical history of diabetes mellitus, hyperlipidemia, hypertension, osteoarthritis, no smoking history presented to the ER with worsening dyspnea 10 days accompanied by loss of appetite, fatigue, cough. Denies fevers or sweats. Denies muscle aches. On admission patient was febrile with temperature 99.1, WBC 5.2, tachycardic, cachectic, maintaining O2 sats of 88% on room air. Patient's respiratory status has further worsened and currently maintaining O2 sats of mid 90s on 3 L nasal cannula. Displays exertional dyspnea after ambulating from BR. Coronavirus PCR positive. D-dimer 0.39, LDH 1108, CRP 18.6. Chest x-ray reporting reticular and some minimal patc hy opacity's over bilateral lower lungs, left greater than right. Hemoglobin 14.5, platelets 287. Sodium currently 132, potassium 5, BUN 27, creatinine 0.77. A.m. Accu-Chek currently being obtained, the blood sugar 231 last night. Denies chest pain, palpitations. 03/20/2021 continues on covid cocktail .oxygen requirements worsened, currently requiring 10 L high flow nasal cannula to maintain O2 sats in the high 80s to low 90s. Reports had coughing spells last night but no cough this morning .exertional shortness of breath .Denies chest pain, palpitations. Afebrile. Ambulatory markers improving with the exception of mild increase in d- dimer.Calcitonin minimally elevated, 0.12. BMP pending. Blood sugars better improving. 03/21/21 maintaining O2 sats in the low 90s on 2 L nasal cannula. Reports minimal nonproductive cough, exertional shortness of breath, loose stools. Blood sugars controlled .Denies chest pain, palpitations. Denies diaphoresis. Afebrile. 03/22/2021 O2 requirements worsened, currently requiring 15 L high flow. Anxious. Current the afebrile, T-max 99.8, labs pending. Yesterday consuming 50-75% of diet. This morning some hypoglycemia, currently 85. Hemoglobin A1c 6.5 Objective - Vital Signs Vital signs: Vital Signs Temp 98.2 F 03/22/21 09:51 Pulse 87 03/22/21 09:51 Resp 24 12/03/21 09:51 BP 150/86 03/22/21 09:51 Pulse Ox 93 L 03/22/21 09:51 Intake & Output 03/21/21 03/22/21 03/22/21 18:59 06:59 18:59 Other: Voiding Method Toilet # Voids 3 2 2 - Exam PHYSICAL EXAM: VITAL SIGNS: As above GENERAL: Alert and oriented 3, Sitting up in bed,NAD HEENT: Conjunctivae normal. eyes normal. Oral mucosa moist. NECK: Supple, No JVD. CARDIOVASCULAR: S1, S2 regular. No murmur RESPIRATION: Breath sounds diminished in the bases. ABDOMEN: Soft, nontender . No guarding. no masses palpable. Positive Bowel sounds. LEGS: No edema. no swelling NERVOUS SYSTEM: Cranial N 2-12 grossly normal. No focal deficits. Strength and sensation grossly intact. Skin: Warm, dry, no rash - Labs CBC & Chem 7: 03/18/21 18:27 03/21/21 06:55 Labs: Abnormal Lab Results - Last 24 Hours (Table) 03/21/21 03/21/21 03/21/21 Range/Units 06:55 11:35 15:25 BUN/Creatinine Ratio 23.86 H (12.00-20.00) Ratio POC Glucose (mg/dL) 161 H (75-99) mg/dL Hemoglobin A1c 6.5 H (4.0-6.0) % Calcium 8.4 L (8.7-10.3) mg/dL 03/21/21 03/21/21 03/22/21 Range/Units 16:43 20:57 07:33 BUN/Creatinine Ratio (12.00-20.00) Ratio POC Glucose (mg/dL) 275 H 242 H 59 L (75-99) mg/dL Hemoglobin A1c (4.0-6.0) % Calcium (8.7-10.3) mg/dL 03/22/21 Range/Units 07:53 BUN/Creatinine Ratio (12.00-20.00) Ratio POC Glucose (mg/dL) 58 L (75-99) mg/dL Hemoglobin A1c (4.0-6.0) % Calcium (8.7-10.3) mg/dL Assessment and Plan Assessment: Acute COVID-19 pneumonia Acute hypoxic respiratory failure secondary to the above Hyponatremia, mild, resolved Diabetes mellitus, hyperglycemic hemoglobin A1c 6.5, in addition to steroid contribution Hypothyroidism Hyperlipidemia Plan: Continue on current medication regime ,monitoring and symptomatic treatment. Continue Covid cocktail. Lantus dose divided ,close monitoring of Accu-Cheks .follow closely with pulmonary.Prognosis guarded given multiple complex medical issues. The impression and plan of care has been dictated as directed. : I performed a history and examination of this patient, discussed the same with the dictator. I agree with the dictator's note ,documented as a scribe. Any additional findings or plans will be noted.
--- NOTE | 2021-03-22 11:59 | XR ---
EXAMINATION TYPE: XR chest 1V portable DATE OF EXAM: 03/22/2021 COMPARISON: 03/18/2021 HISTORY: Shortness of breath TECHNIQUE: Single frontal view of the chest is obtained. FINDINGS: A diffuse bilateral infiltrates are worse relative to the prior exam. No pneumothorax. No pleural effusion. Hypertrophic change of the spine. Heart size normal. Arthropathy of the shoulders. IMPRESSION: 1. Marked progression of peripheral bilateral infiltrates compatible with multifocal pneumonia.
[2021-03-22] MEDS: BARICITINIB 2 MG TABLET PO SCH (13:45)
[2021-03-22 13:54] LABS: Basophils # (A) 0.1 k/uL (0-0.2); Basophils % (A) 1 %; Eosinophils % (A) 0 %; HCT 42.7 % (34.0-46.0); HGB 14.4 gm/dL (11.4-16.0); Lymphocytes # (A) 0.4 k/uL (1.0-4.8); Lymphocytes % (A) 6 %; MCH 30.6 pg (25.0-35.0); MCHC 33.8 g/dL (31.0-37.0); MCV 90.6 fL (80.0-100.0); Mean Platelet Volume 7.2; Monocytes # (A) 0.3 k/uL (0-1.0); Monocytes % (A) 4 %; Neutrophils # (A) 6.1 k/uL (1.3-7.7); Neutrophils % (A) 88 %; Platelet Count 406 k/uL (150-450); RBC 4.72 m/uL (3.80-5.40); RDW 14.1 % (11.5-15.5)
[2021-03-22 14:13] LABS: African American GFR (CKD) >90 (>60 ml/min/1.73 sqM); Anion Gap 6 mmol/L; Blood Urea Nitrogen 10 mg/dL (7-17); C Reactive Protein 7.3 mg/dL (<1.0); Calcium 8.5 mg/dL (8.4-10.2); Carbon Dioxide 26 mmol/L (22-30); Chloride 103 mmol/L (98-107); Glucose 220 mg/dL (74-99); Non-African American GFR(CKD) >90 (>60 ml/min/1.73 sqM); Potassium 4.7 mmol/L (3.5-5.1); Sodium 135 mmol/L (137-145)
[2021-03-22 14:17] LABS: LDH 2431 U/L (313-618)
--- NOTE | 2021-03-22 15:30 | US ---
EXAMINATION TYPE: US venous doppler duplex LE DATE OF EXAM: 03/22/2021 2:58 PM COMPARISON: NONE CLINICAL HISTORY: elevated d-dimer. Elevated D-dimer, Covid SIDE PERFORMED: Bilateral TECHNIQUE: The lower extremity deep venous system is examined utilizing real time linear array sonog xochitl with graded compression, doppler sonography and color-flow sonography. VESSELS IMAGED: Common Femoral Vein Deep Femoral Vein Greater Saphenous Vein * Femoral Vein Popliteal Vein Small Saphenous Vein * Proximal Calf Veins (* superficial vessels) Right Leg: Negative for DVT Left Leg: Negative for DVT IMPRESSION: Grayscale, color doppler, spectral doppler imaging performed of the deep veins of the lo wer extremities. There is normal flow, compressibility, vascular waveforms.
[2021-03-22 16:55] LABS: Glucose,Whole Blood 202 mg/dL (75-99)
--- NOTE | 2021-03-22 17:57 | CT ---
EXAMINATION TYPE: CT angio chest DATE OF EXAM: 03/22/2021 COMPARISON: None HISTORY: Shortness of breath, covid, elevated d-dimer. CT DLP: 321.6 mGycm CONTRAST: CT chest with contrast and 3D reconstruction with MIP imaging is performed with IV Contrast, patient injected with 100 mL of Isovue 370. Contrast-enhanced CT of the chest was performed through the course of the pulmonary arteries with ne g and mediastinal window settings submitted. 3D reconstruction with MIP imaging was also performed. PULMONARY ARTERIES: The pulmonary arteries and their major tributaries are patent. I do not see roger dence for sizable filling defect to suggest pulmonary embolic process. LUNGS: Diffuse groundglass infiltrates compatible with Covid 19 pneumonia. No evidence for atelectasi s. No pulmonary nodule or mass is detected. No pleural effusion. MEDIASTINUM: Thoracic aorta is of normal caliber,however, evaluation is limited given timing of the contrast bolus. If there is concern for thoracic aortic pathology consider KATLIN. Correlate clinicall y . The heart is not enlarged. No evidence for mediastinal mass. No mediastinal lymph nodes greater than 1cm. HILAR STRUCTURES: No evidence for mass. No hilar lymph nodes greater than 1 cm. UPPER ABDOMEN: No significant abnormality is seen. IMPRESSION: 1. No evidence for Pulmonary embolism at this time. 2. Covid 19 pneumonia.
[2021-03-22 20:42] LABS: Glucose,Whole Blood 214 mg/dL (75-99)
[2021-03-22] MEDS ORDERED: INSULIN DETEMIR (LEVEMIR) 100 UNIT/ML SYR SQ SCH (21:00)
[2021-03-22] MEDS: lisinopriL 10 MG TAB PO SCH (21:27)
[2021-03-22] MEDS: ATORVASTATIN 40 MG TAB PO SCH (21:27)
[2021-03-23 02:30] LABS: Glucose,Whole Blood 112 mg/dL (75-99)
[2021-03-23] MEDS: SODIUM CHLORIDE 0.9% 1,000 ML IV SCH ×2 (05:19→22:01)
[2021-03-23] MEDS: LEVOTHYROXINE 75 MCG TAB PO SCH (05:20)
[2021-03-23 07:20] LABS: Glucose,Whole Blood 57 mg/dL (75-99)
--- NOTE | 2021-03-23 07:38 | XR ---
EXAMINATION TYPE: XR chest 1V portable DATE OF EXAM: 03/23/2021 COMPARISON: 03/22/2021 HISTORY: Dyspnea TECHNIQUE: Single frontal view of the chest is obtained. FINDINGS: Scattered moderate airspace opacities particularly in the left lung with possible slight i nterval improvement compared to previous. There is no pneumothorax or pleural effusion. Heart size is normal. The osseous structures are intact IMPRESSION: Mild to moderate lung infiltrates with slight interval improvement compared to the prior study.
[2021-03-23] MEDS: ALPRAZolam 0.5 MG TAB PO PRN ×2 (07:46→21:46)
[2021-03-23] MEDS: INSULIN ASPART (NovoLOG) 100 UNIT/ML VIAL SQ SCH ×4 (07:58→21:45)
[2021-03-23] MEDS: ZINC SULFATE 220 MG CAP PO SCH (07:59)
[2021-03-23] MEDS: PANTOPRAZOLE 40 MG/10 ML VIAL IVP SCH (07:59)
[2021-03-23] MEDS: CHOLECALCIFEROL 25 MCG (1000 IU) TABLET PO SCH (07:59)
[2021-03-23] MEDS: DEXAMETHASONE SOD PHOSPHATE 10 MG/ML 1 ML VIAL IVP SCH (07:59)
[2021-03-23] MEDS: ENOXAPARIN 40 MG/0.4 ML SYRINGE SQ SCH (07:59)
[2021-03-23] MEDS: BARICITINIB 2 MG TABLET PO SCH (08:00)
[2021-03-23] MEDS: ASCORBIC ACID 500 MG TAB PO SCH (08:00)
[2021-03-23 08:03] LABS: Glucose,Whole Blood 85 mg/dL (75-99)
[2021-03-23 08:03] LABS: Glucose,Whole Blood 63 mg/dL (75-99)
[2021-03-23] MEDS: ALBUTEROL HFA INHALER INHALATION SCH ×4 (08:17→20:20)
[2021-03-23 11:38] LABS: Glucose,Whole Blood 155 mg/dL (75-99)
[2021-03-23 12:36] LABS: African American GFR (CKD) 106.1 (60.0-200.0); Albumin 2.7 g/dL (3.8-4.9); Albumin/Globulin Ratio 1.29 (1.60-3.17); Anion Gap 12.4 mmol/L (10.00-18.00); BUN/Creat Ratio 17.86 Ratio (12.00-20.00); Blood Urea Nitrogen 12.5 mg/dL (9.0-27.0); Calcium 8.2 mg/dL (8.7-10.3); Carbon Dioxide 23.6 mmol/L (20.0-27.5); Globulin 2.1 g/dL (1.6-3.3); Non-African American GFR(CKD) 91.6 (60.0-200.0); Potassium 3.4 mmol/L (3.5-5.5); Total Bilirubin 0.4 mg/dL (0.30-1.20); Total Protein 4.8 g/dL (6.2-8.2)
[2021-03-23] MEDS: INSULIN DETEMIR (LEVEMIR) 100 UNIT/ML SYR SQ SCH (14:44)
--- NOTE | 2021-03-23 15:08 | P.PN ---
Subjective Progress Note Date: 03/23/21 03/23/2021, the patient is being seen for a follow-up. This is a 65-year-old female patient with Coumadin associated pneumonia. For now, the patient is being treated with Decadron 6 mg IV every 24 hours and the patient is also on Baricitinib per protocol. The patient is also on Lovenox for DVT prophylaxis and dose of 40 subcu on a daily basis pH is doing well. D-dimer was elevated above 34 and the LDH level was 657 with a CRP level of 14. Based on this, the patient underwent a CT angiogram on 03/22/2021 and the findings are essentially negative for DVT at was consistent with COVID 19 related pneumonia. The chest x-ray was also repeated today showed mild to moderate amount of pulmonary infi ltrates with slight interval improvement compared to the previous study. There is scattered moderate airspace disease bilaterally on the left. Some improvement on the right is noted. The patient continues to be on Levemir insulin 10 units at bedtime in addition 10 units of Levemir in the morning and a sliding scale insulin coverage. Objective - Vital Signs Vital signs: Vital Signs Temp 97.9 F 03/23/21 14:00 Pulse 105 H 03/23/21 14:00 Resp 21 03/23/21 14:00 BP 126/94 03/23/21 14:00 Pulse Ox 96 03/23/21 14:00 Intake & Output 03/22/21 03/23/21 03/23/21 18:59 06:59 18:59 Intake Total 2680 Balance 2680 Intake: Intake, IV Titration 900 Amount Sodium Chloride 0.9% 1, 900 000 ml @ 75 mls/hr IV . [id number] [facility] Rx#:[id number] Oral 1780 Other: Voiding Method Toilet Bedside Commode # Voids 2 2 # Bowel Movements 2 1 - Exam General appearance: alert, in no apparent distress, breathing is nonlabored and the patient is currently on 15 L oxygen by nasal cannula in addition to nonrebreather facemask. Head exam: Present: atraumatic, normocephalic, normal inspection Eye exam: Present: normal appearance, PERRL, EOMI. Absent: scleral icterus, conjunctival injection, periorbital swelling ENT exam: Present: normal exam, mucous membranes moist Neck exam: Present: normal inspection Respiratory exam: Present: The patient has bilateral crackles in the mid and lower lung merino bilaterally Cardiovascular Exam: Present: regular rate, normal rhythm, normal heart sounds. Absent: systolic murmur, diastolic murmur, rubs, gallop, clicks Extremities exam: Present: normal inspection, full ROM, normal capillary refill. Absent: tenderness, pedal edema, joint swelling, calf tenderness Neurological exam: Present: alert, oriented X3 Psychiatric exam: Present: normal affect, normal mood Skin exam: Present: warm, dry, intact, normal color. Absent: rash - Labs CBC & Chem 7: 03/22/21 13:23 03/23/21 08:26 Labs: Abnormal Lab Results - Last 24 Hours (Table) 03/22/21 03/22/21 03/23/21 Range/Units 16:53 20:40 02:29 D-Dimer (<0.60) mg/L FEU Potassium (3.5-5.5) mmol/L Glucose (70-110) mg/dL POC Glucose (mg/dL) 202 H 214 H 112 H (75-99) mg/dL Calcium (8.7-10.3) mg/dL AST (13-35) U/L ALT (8-44) U/L Lactate Dehydrogenase (120-246) U/L C-Reactive Protein (0.00-0.80) mg/dL Total Protein (6.2-8.2) g/dL Albumin (3.8-4.9) g/dL Albumin/Globulin Ratio (1.60-3.17) g/dL 03/23/21 03/23/21 03/23/21 Range/Units 07:19 07:42 08:26 D-Dimer >34.10 H (<0.60) mg/L FEU Potassium (3.5-5.5) mmol/L Glucose (70-110) mg/dL POC Glucose (mg/dL) 57 L 63 L (75-99) mg/dL Calcium (8.7-10.3) mg/dL AST (13-35) U/L ALT (8-44) U/L Lactate Dehydrogenase (120-246) U/L C-Reactive Protein (0.00-0.80) mg/dL Total Protein (6.2-8.2) g/dL Albumin (3.8-4.9) g/dL Albumin/Globulin Ratio (1.60-3.17) g/dL 03/23/21 03/23/21 Range/Units 08:26 11:37 D-Dimer (<0.60) mg/L FEU Potassium 3.4 L (3.5-5.5) mmol/L Glucose 150 H (70-110) mg/dL POC Glucose (mg/dL) 155 H (75-99) mg/dL Calcium 8.2 L (8.7-10.3) mg/dL AST 39 H (13-35) U/L ALT 71 H (8-44) U/L Lactate Dehydrogenase 657 H (120-246) U/L C-Reactive Protein 14.00 H (0.00-0.80) mg/dL Total Protein 4.8 L (6.2-8.2) g/dL Albumin 2.7 L (3.8-4.9) g/dL Albumin/Globulin Ratio 1.29 L (1.60-3.17) g/dL Assessment and Plan Plan: 1 acute bilateral COVID 19 related pneumonia. This patient is not vaccinated. The patient became symptomatic approximately 11 days ago. The patient is presenting with worsening shortness of breath and currently the patient has hypoxic respiratory failure on 15 L of oxygen by nasal cannula in addition to 100% nonrebreather facemask. CT angiogram negative for pulmonary embolism. Doppler of the lower extremity was negative for DVT. D-dimer is elevated and this is to the monitors. The patient on Lovenox 40 subcu on a daily basis. The rest of the symmetrical markers including LDH has dropped. Currently on a combination of Baricitinib and Decadron per protocol. 2 acute hypoxic respiratory failure secondary to above 3 elevated inflammatory markers including LDH, mildly elevated D dimers. S econdary to above. 4 diabetes mellitus with a component of steroid use hyperglycemia 5 hypothyroidism 6 hyperlipidemia Plan Monitor the patient's oxygenation currently on a nonrebreather facemask addition to [address] angiogram is negative for PE and the Doppler was negative for DVT Monitor inflammatory markers and check a baseline pro-calcitonin level due to inflammatory markers that in general improving including LDH and CRP. The pro- calcitonin level is low at 0.12. No need for any antibiotics at this point in time Continue Decadron 6 mg IV every 24 hours Continue Baricitinib per protocol Monitor the blood sugar and give this patient 20 units of Levemir insulin along with a sliding scale coverage Multivitamins for COVID 19 Lovenox 40 mg for DVT prophylaxis Resume all medications We'll continue to follow.
--- NOTE | 2021-03-23 15:26 | P.PN ---
Subjective Patient is admitted for acute hypoxic respiratory failure secondary to Covid 19 pneumonia and patient is presently on 15 L of oxygen. Constitutional: Denied any fatigue denied any fever. Cardio vascular: denied any chest pain, palpitations Gastrointestinal denied any nausea vomiting Pulmonary: Denied any shortness of breath cough Neurologic denied any new focal deficits All inpatient medications were reviewed and appropriate changes in these m edications as dictated in the interval history and assessment and plan. PHYSICAL EXAMINATION: GENERAL: The patient is alert and oriented x3, not in any acute distress. Well developed, well nourished. HEENT: Pupils are round and equally reacting to light. EOMI. No scleral icterus. No conjunctival pallor. Normocephalic, atraumatic. No pharyngeal erythema. No thyromegaly. CARDIOVASCULAR: S1 and S2 present. No murmurs, rubs, or gallops. PULMONARY: Chest is clear to auscultation, no wheezing or crackles. ABDOMEN: Soft, nontender, nondistended, normoactive bowel sounds. No palpable organomegaly. MUSCULOSKELETAL: No joint swelling or deformity. EXTREMITIES: No cyanosis, clubbing, or pedal edema. NEUROLOGICAL: Gross neurological examination did not reveal any focal deficits. SKIN: No rashes. Assessment and plan -Acute hypoxic respiratory failure secondary to Covid 19 pneumonia continue with the steroids inhalational treatments patient is presently on Barcitinib as well. -Type 2 diabetes mellitus continue with present regimen titration depending on his blood sugars. Patient's blood sugars are presently rate controlled -Hypokalemia replace -Hypothyroidism -Hyperlipidemia -Due to prophylaxis: Lovenox Objective - Vital Signs Vital signs: Vital Signs Temp 97.9 F 03/23/21 14:00 Pulse 105 H 03/23/21 14:00 Resp 21 03/23/21 14:00 BP 126/94 03/23/21 14:00 Pulse Ox 96 03/23/21 14:00 Intake & Output 03/22/21 03/23/21 03/23/21 18:59 06:59 18:59 Intake Total 2680 Balance 2680 Intake: Intake, IV Titration 900 Amount Sodium Chloride 0.9% 1, 900 000 ml @ 75 mls/hr IV . [id number] [facility] Rx#:[id number] Oral 1780 Other: Voiding Method Toilet Bedside Commode # Voids 2 2 # Bowel Movements 2 1 - Labs CBC & Chem 7: 03/22/21 13:23 03/23/21 08:26 Labs: Abnormal Lab Results - Last 24 Hours (Table) 03/22/21 03/22/21 03/23/21 Range/Units 16:53 20:40 02:29 D-Dimer (<0.60) mg/L FEU Potassium (3.5-5.5) mmol/L Glucose (70-110) mg/dL POC Glucose (mg/dL) 202 H 214 H 112 H (75-99) mg/dL Calcium (8.7-10.3) mg/dL AST (13-35) U/L ALT (8-44) U/L Lactate Dehydrogenase (120-246) U/L C-Reactive Protein (0.00-0.80) mg/dL Total Protein (6.2-8.2) g/dL Albumin (3.8-4.9) g/dL Albumin/Globulin Ratio (1.60-3.17) g/dL 03/23/21 03/23/21 03/23/21 Range/Units 07:19 07:42 08:26 D-Dimer >34.10 H (<0.60) mg/L FEU Potassium (3.5-5.5) mmol/L Glucose (70-110) mg/dL POC Glucose (mg/dL) 57 L 63 L (75-99) mg/dL Calcium (8.7-10.3) mg/dL AST (13-35) U/L ALT (8-44) U/L Lactate Dehydrogenase (120-246) U/L C-Reactive Protein (0.00-0.80) mg/dL Total Protein (6.2-8.2) g/dL Albumin (3.8-4.9) g/dL Albumin/Globulin Ratio (1.60-3.17) g/dL 03/23/21 03/23/21 Range/Units 08:26 11:37 D-Dimer (<0.60) mg/L FEU Potassium 3.4 L (3.5-5.5) mmol/L Glucose 150 H (70-110) mg/dL POC Glucose (mg/dL) 155 H (75-99) mg/dL Calcium 8.2 L (8.7-10.3) mg/dL AST 39 H (13-35) U/L ALT 71 H (8-44) U/L Lactate Dehydrogenase 657 H (120-246) U/L C-Reactive Protein 14.00 H (0.00-0.80) mg/dL Total Protein 4.8 L (6.2-8.2) g/dL Albumin 2.7 L (3.8-4.9) g/dL Albumin/Globulin Ratio 1.29 L (1.60-3.17) g/dL
[2021-03-23 16:29] LABS: Glucose,Whole Blood 308 mg/dL (75-99)
[2021-03-23 20:09] LABS: Glucose,Whole Blood 366 mg/dL (75-99)
[2021-03-23] MEDS: lisinopriL 10 MG TAB PO SCH (21:45)
[2021-03-23] MEDS: ATORVASTATIN 40 MG TAB PO SCH (21:45)
[2021-03-24 01:41] LABS: Glucose,Whole Blood 197 mg/dL (75-99)
[2021-03-24] MEDS ORDERED: Potassium Replacement Protocol 1 EACH MISC MISCELLANE PRN (05:02)
[2021-03-24] MEDS: ALPRAZolam 0.5 MG TAB PO PRN ×3 (05:49→20:36)
[2021-03-24] MEDS: POTASSIUM CHLORIDE ER 20 MEQ TAB.ER PO SCH ×2 (05:49→08:46)
[2021-03-24] MEDS: LEVOTHYROXINE 75 MCG TAB PO SCH (05:49)
[2021-03-24 07:14] LABS: Glucose,Whole Blood 66 mg/dL (75-99)
[2021-03-24 07:57] LABS: Glucose,Whole Blood 71 mg/dL (75-99)
--- NOTE | 2021-03-24 08:29 | P.PN ---
Progress Note - Text Progress Note Date: 03/24/21 A team A team was called on the patient because she was satting in the 70s. When I came to see the patient she was awake and alert and AAO 3. She had diminished breath sounds. There are no signs of cyanosis in the extremities. Patient was already on OptiFlow. Patient coughed multiple times however O2 saturation did not improve. Pulse ox was also changed which did not improve her oxygenation either. Repositioning patient also did not improve her oxygenation. I told respiratory therapist to place patient on BiPAP. After a few minutes on BiPAP at 100% FiO2 patient's oxygenation did improve to 88%. I also told respiratory therapist to get an ABG in 1 hour to correlate O2 saturation on ABG with pulse ox on better.
[2021-03-24] MEDS: ZINC SULFATE 220 MG CAP PO SCH (08:46)
[2021-03-24] MEDS: PANTOPRAZOLE 40 MG/10 ML VIAL IVP SCH (08:46)
[2021-03-24] MEDS: ASCORBIC ACID 500 MG TAB PO SCH (08:46)
[2021-03-24] MEDS: INSULIN ASPART (NovoLOG) 100 UNIT/ML VIAL SQ SCH ×4 (08:46→20:46)
[2021-03-24] MEDS: DEXAMETHASONE SOD PHOSPHATE 10 MG/ML 1 ML VIAL IVP SCH (08:46)
[2021-03-24] MEDS: ENOXAPARIN 40 MG/0.4 ML SYRINGE SQ SCH (08:47)
[2021-03-24] MEDS: CHOLECALCIFEROL 25 MCG (1000 IU) TABLET PO SCH (08:47)
[2021-03-24] MEDS: BARICITINIB 2 MG TABLET PO SCH (08:47)
[2021-03-24] MEDS: ALBUTEROL HFA INHALER INHALATION SCH ×4 (09:05→19:53)
[2021-03-24 09:06] LABS: ABG Base Excess 2.3 mmol/L; ABG HCO3 26 mmol/L (21-25); ABG Oxygen Saturation 86.1 % (94-97); ABG PCO2 37 mmHg (35-45); ABG PH 7.46 (7.35-7.45); ABG TCO2 27 mmol/L (19-24); Allen Test Performed? Yes
[2021-03-24 09:13] LABS: ABG PO2 50 mmHg (83-108)
[2021-03-24 11:18] LABS: Glucose,Whole Blood 224 mg/dL (75-99)
[2021-03-24] MEDS: SODIUM CHLORIDE 0.9% 1,000 ML IV SCH ×2 (13:49→20:56)
--- NOTE | 2021-03-24 13:51 | P.PN ---
Subjective Patient is admitted for acute hypoxic respiratory failure secondary to Covid 19 pneumonia and patient is presently on 15 L of oxygen. 03/24/2021 Patient remains hypoxic on BiPAP with the ABG showing significantly low pO2 of 50 and the patient is being transferred to intensive care unit may need intubation. Constitutional: Denied any fatigue denied any fever. Cardio vascular: denied any chest pain, palpitations Gastrointestinal denied any nausea vomiting Pulmonary: As mentioned in HPI Neurologic denied any new focal deficits All inpatient medications were reviewed and appropriate changes in these medications as dictated in the interval history and assessment and plan. PHYSICAL EXAMINATION: GENERAL: The patient is alert and oriented x3, not in any acute distress. Well developed, well nourished. HEENT: Pupils are round and equally reacting to light. EOMI. No scleral icterus. No conjunctival pallor. Normocephalic, atraumatic. No pharyngeal erythema. No thyromegaly. CARDIOVASCULAR: S1 and S2 present. No murmurs, rubs, or gallops. PULMONARY: Chest is clear to auscultation, no wheezing or crackles. ABDOMEN: Soft, nontender, nondistended, normoactive bowel sounds. No palpable organomegaly. MUSCULOSKELETAL: No joint swelling or deformity. EXTREMITIES: No cyanosis, clubbing, or pedal edema. NEUROLOGICAL: Gross neurological examination did not reveal any focal deficits. SKIN: No rashes. Assessment and plan -Acute hypoxic respiratory failure secondary to Covid 19 pneumonia continue with the steroids inhalational treatments patient is presently on Barcitinib as well. Patient is hypoxic on BiPAP being transferred to intensive care unit may need intubation -Type 2 diabetes mellitus continue with present regimen titration depending on his blood sugars. Patient's blood sugars are presently well controlled -Hypokalemia replace -Hypothyroidism -Hyperlipidemia -Due to prophylaxis: Lovenox Objective - Vital Signs Vital signs: Vital Signs Temp 98.6 F 03/24/21 13:46 Pulse 101 H 03/24/21 13:46 Resp 34 H 03/24/21 13:46 BP 146/88 03/24/21 13:46 Pulse Ox 92 L 03/24/21 13:46 Intake & Output 03/23/21 03/24/21 03/24/21 18:59 06:59 18:59 Other: Voiding Method Bedside Commode Bedside Commode Bedside Commode # Voids 2 3 # Bowel Movements 1 - Labs CBC & Chem 7: 03/22/21 13:23 03/23/21 08:26 Labs: Abnormal Lab Results - Last 24 Hours (Table) 03/23/21 03/23/21 03/24/21 Range/Units 16:27 20:07 01:39 ABG pH (7.35-7.45) ABG pO2 (83-108) mmHg ABG HCO3 (21-25) mmol/L ABG Total CO2 (19-24) mmol/L ABG O2 Saturation (94-97) % POC Glucose (mg/dL) 308 H 366 H 197 H (75-99) mg/dL 03/24/21 03/24/21 03/24/21 Range/Units 07:13 07:55 08:30 ABG pH 7.46 H (7.35-7.45) ABG pO2 50 L* (83-108) mmHg ABG HCO3 26 H (21-25) mmol/L ABG Total CO2 27 H (19-24) mmol/L ABG O2 Saturation 86.1 L (94-97) % POC Glucose (mg/dL) 66 L 71 L (75-99) mg/dL 03/24/21 Range/Units 11:16 ABG pH (7.35-7.45) ABG pO2 (83-108) mmHg ABG HCO3 (21-25) mmol/L ABG Total CO2 (19-24) mmol/L ABG O2 Saturation (94-97) % POC Glucose (mg/dL) 224 H (75-99) mg/dL
--- NOTE | 2021-03-24 16:13 | P.PN ---
Subjective Progress Note Date: 03/24/21 03/24/2021, the patient is having more difficulty in breathing. This morning, the patient started having worsening shortness of breath and worsening and hypoxemia. The patient is currently on BiPAP at a pressure of 14/8 cm of water. He is quite tachypneic. The respiratory rate is around 34 times a minute and her minute ventilation is above 24 L per minute. She is quite tachypneic and short of breath and she is also tachycardic. Note that, the patient's condition was gradually getting worse over the past several days. The patient was on 9 L of oxygen by nasal cannula and there was progressive rise in her oxygen requirements and she was brought up to 15 L and later on to 100% nonrebreather facemask and currently she is on a BiPAP. At the same time, the patient is being treated with a combination of Decadron and Baricitinib per protocol. She is on Lovenox for DVT prophylaxis 40 mg subcu daily basis. This is consistent with COVID 19 related pneumonia. While on the BiPAP, she underwent a blood gas that showed a pH of 7.46 with a pCO2 of 37 and pO2 of 50. Subsequently, her oxygen saturations improved. Her d-dimer from yesterday was more than 34. Her CRP level was 14 and her LDH level was 657. Rest of the blood work shows a potassium level of 3.4 with a sodium of 140. Objective - Vital Signs Vital signs: Vital Signs Temp 98.6 F 03/24/21 13:46 Pulse 101 H 03/24/21 13:46 Resp 34 H 03/24/21 13:46 BP 146/88 03/24/21 13:46 Pulse Ox 92 L 03/24/21 13:46 Intake & Output 03/23/21 03/24/21 03/24/21 18:59 06:59 18:59 Other: Voiding Method Bedside Commode Bedside Commode Bedside Commode # Voids 2 3 # Bowel Movements 1 - Exam General appearance: alert, in no apparent distress, breathing is nonlabored and the patient is currently on BiPAP at a pressure of 14/7 cm of water. Patient's breathing is labored. She is more lethargic and weak and tachypneic and she seems to be quite BiPAP dependent for now. Head exam: Present: atraumatic, normocephalic, normal inspection Eye exam: Present: normal appearance, PERRL, EOMI. Absent: scleral icterus, con junctival injection, periorbital swelling ENT exam: Present: normal exam, mucous membranes moist Neck exam: Present: normal inspection Respiratory exam: Present: The patient has bilateral crackles in the mid and lower lung merino bilaterally Cardiovascular Exam: Present: regular rate, normal rhythm, normal heart sounds. Absent: systolic murmur, diastolic murmur, rubs, gallop, clicks Extremities exam: Present: normal inspection, full ROM, normal capillary refill. Absent: tenderness, pedal edema, joint swelling, calf tenderness Neurological exam: Present: alert, oriented X3 Psychiatric exam: Present: normal affect, normal mood Skin exam: Present: warm, dry, intact, normal color. Absent: rash - Labs CBC & Chem 7: 03/22/21 13:23 03/23/21 08:26 Labs: Abnormal Lab Results - Last 24 Hours (Table) 03/23/21 03/23/21 03/24/21 Range/Units 16:27 20:07 01:39 ABG pH (7.35-7.45) ABG pO2 (83-108) mmHg ABG HCO3 (21-25) mmol/L ABG Total CO2 (19-24) mmol/L ABG O2 Saturation (94-97) % POC Glucose (mg/dL) 308 H 366 H 197 H (75-99) mg/dL 03/24/21 03/24/21 03/24/21 Range/Units 07:13 07:55 08:30 ABG pH 7.46 H (7.35-7.45) ABG pO2 50 L* (83-108) mmHg ABG HCO3 26 H (21-25) mmol/L ABG Total CO2 27 H (19-24) mmol/L ABG O2 Saturation 86.1 L (94-97) % POC Glucose (mg/dL) 66 L 71 L (75-99) mg/dL 03/24/21 Range/Units 11:16 ABG pH (7.35-7.45) ABG pO2 (83-108) mmHg ABG HCO3 (21-25) mmol/L ABG Total CO2 (19-24) mmol/L ABG O2 Saturation (94-97) % POC Glucose (mg/dL) 224 H (75-99) mg/dL Assessment and Plan Plan: 1 acute bilateral COVID 19 related pneumonia. This patient is not vaccinated. The patient became symptomatic approximately 11 days ago. The patient is presenting with worsening shortness of breath and currently the patient has hypoxic respiratory failure on 15 L of oxygen by nasal cannula in addition to 100% nonrebreather facemask. CT angiogram negative for pulmonary embolism. Doppler of the lower extremity was negative for DVT. D-dimer is elevated and this is to the monitors. The patient on Lovenox 40 subcu on a daily basis. The rest of the symmetrical markers including LDH has dropped. Currently on a combination of Baricitinib and Decadron per protocol. Earlier this morning, the patient has further decompensation and worsening in the oxygenation. The patient is currently on a BiPAP for respiratory support at a pressure of 14/7 cm of water with an FiO2 of 100%. The patient is quite tachypneic and short of mattie ath even on the BiPAP. High likelihood for further decompensation requiring intubation mechanical ventilation. She is BiPAP dependent for now. She'll be transferred to the intensive care unit for further monitoring. 2 acute hypoxic respiratory failure secondary to above 3 elevated inflammatory markers including LDH, mildly elevated D dimers. Secondary to above. 4 diabetes mellitus with a component of steroid use hyperglycemia 5 hypothyroidism 6 hyperlipidemia Plan Continue BiPAP for now at the same pressure settings. Use Precedex if needed for synchrony with a IPAP machine and restless and agitation Monitor inflammatory markers and check a baseline pro-calcitonin level due to inflammatory markers that in general improving including LDH and CRP. The pro- calcitonin level is low at 0.12. No need for any antibiotics at this point in time Continue Decadron 6 mg IV every 24 hours Continue Baricitinib per protocol Monitor the blood sugar and give this patient 20 units of Levemir insulin along with a sliding scale coverage Multivitamins for COVID 19 Lovenox 40 mg for DVT prophylaxis Resume all medications We'll continue to follow. Condition is critical at this point in time. Recommend transferring this patient to the ICU. High likelihood for requiring intubation mechanical ventilation. She is full code at this point in time.
[2021-03-24 16:36] LABS: Glucose,Whole Blood 262 mg/dL (75-99)
[2021-03-24] MEDS: lisinopriL 10 MG TAB PO SCH (20:36)
[2021-03-24] MEDS: ATORVASTATIN 40 MG TAB PO SCH (20:36)
[2021-03-24 21:24] LABS: Glucose,Whole Blood 230 mg/dL (75-99)
[2021-03-25] MEDS: ALPRAZolam 0.5 MG TAB PO PRN (04:31)
[2021-03-25] MEDS: ACETAMINOPHEN TAB 325 MG TAB PO PRN (05:55)
[2021-03-25] MEDS: LEVOTHYROXINE 75 MCG TAB PO SCH (05:55)
[2021-03-25 07:09] LABS: Glucose,Whole Blood 149 mg/dL (75-99)
[2021-03-25] MEDS: INSULIN ASPART (NovoLOG) 100 UNIT/ML VIAL SQ SCH ×4 (08:07→23:46)
[2021-03-25 08:43] LABS: Glucose,Whole Blood 125 mg/dL (75-99)
--- NOTE | 2021-03-25 08:57 | XR ---
EXAMINATION TYPE: XR chest 1V DATE OF EXAM: 03/25/2021 COMPARISON: Chest x-ray 03/23/2021 HISTORY: Covid 19 pneumonia TECHNIQUE: Single frontal view of the chest is obtained. FINDINGS: Bilateral airspace disease is again noted. No evident pneumothorax or pleural effusion. Ca rdiac mediastinal silhouette is stable. There are overlying artifacts. Bones are unchanged. IMPRESSION: Correlate for pneumonia.
[2021-03-25] MEDS: PANTOPRAZOLE 40 MG/10 ML VIAL IVP SCH (09:05)
[2021-03-25] MEDS: ASCORBIC ACID 500 MG TAB PO SCH (09:06)
[2021-03-25] MEDS: DEXAMETHASONE SOD PHOSPHATE 10 MG/ML 1 ML VIAL IVP SCH (09:06)
[2021-03-25] MEDS: BARICITINIB 2 MG TABLET PO SCH (09:06)
[2021-03-25] MEDS: ENOXAPARIN 40 MG/0.4 ML SYRINGE SQ SCH ×2 (09:06→21:03)
[2021-03-25] MEDS: ZINC SULFATE 220 MG CAP PO SCH (09:06)
[2021-03-25] MEDS: CHOLECALCIFEROL 25 MCG (1000 IU) TABLET PO SCH (09:06)
[2021-03-25] MEDS: ALBUTEROL HFA INHALER INHALATION SCH ×4 (09:33→19:44)
[2021-03-25] MEDS: DEXMEDETOMIDINE/0.9% NACL(PMX) 400 MCG in EMPTY BAG 1 BAG IV SCH ×2 (10:05→18:06)
[2021-03-25 10:54] LABS: African American GFR (CKD) 111.6 (60.0-200.0); Albumin 2.9 g/dL (3.8-4.9); Albumin/Globulin Ratio 1.16 (1.60-3.17); Anion Gap 11.9 mmol/L (10.00-18.00); BUN/Creat Ratio 23.83 Ratio (12.00-20.00); Blood Urea Nitrogen 14.3 mg/dL (9.0-27.0); C Reactive Protein 15.6 mg/dL (0.00-0.80); Calcium 8.6 mg/dL (8.7-10.3); Carbon Dioxide 25.1 mmol/L (20.0-27.5); Globulin 2.5 g/dL (1.6-3.3); Non-African American GFR(CKD) 96.3 (60.0-200.0); Total Bilirubin 0.5 mg/dL (0.30-1.20); Total Protein 5.4 g/dL (6.2-8.2)
[2021-03-25] MEDS: propofoL 100 ML IV ONE ×2 (11:19→15:20)
[2021-03-25] MEDS ORDERED: CISATRACURIUM 2 MG/ML 5 ML VIAL IV ONE (12:05)
--- NOTE | 2021-03-25 12:10 | XR ---
EXAMINATION TYPE: XR chest 1V portable DATE OF EXAM: 03/25/2021 COMPARISON: 03/25/2021 HISTORY: SOB, Follow Up FINDINGS: Interval placement of endotracheal tube with its distal tip at the origin of the right mainstem bronc hus. This should be pulled back approximately 4 cm. NG tube is seen coursing into the stomach. Bilate ral airspace and interstitial infiltrates noted. Stable appearance of the cardio-mediastinal structures at this time. IMPRESSION: 1. Endotracheal tube demonstrates its distal tip at the origin of the right mainstem bronchus and charu uld be pulled back approximately 4 cm. 2. Bilateral infiltrates persist. A Red level critical message alert has been initiated for Jay Allan via the [employer] Results System on 03/25/2021 11:36 AM. This message alert has been sent to Jay Allan via the pref erences provided by the clinician for the receipt of Radiology Critical Findings. Message ID [id number].
[2021-03-25] MEDS: fentaNYL (PF). 1,000 MCG in SODIUM CHLORIDE 0.9% 80 ML IV SCH (12:25)
[2021-03-25] MEDS: CISATRACURIUM 200 MG in SODIUM CHLORIDE 0.9% 180 ML IV SCH (12:29)
[2021-03-25 12:44] LABS: ABG Base Excess 0.1 mmol/L; ABG HCO3 25 mmol/L (21-25); ABG Oxygen Saturation 85.4 % (94-97); ABG PCO2 43 mmHg (35-45); ABG PH 7.38 (7.35-7.45); ABG TCO2 27 mmol/L (19-24); Allen Test Performed? Yes
[2021-03-25 12:46] LABS: ABG PO2 54 mmHg (83-108)
[2021-03-25 12:47] LABS: ALT 75 U/L (4-34); AST 56 U/L (14-36); African American GFR (CKD) >90 (>60 ml/min/1.73 sqM); Albumin 2.6 g/dL (3.5-5.0); Alkaline Phosphatase 138 U/L (38-126); Anion Gap 10 mmol/L; Blood Urea Nitrogen 17 mg/dL (7-17); Calcium 8.1 mg/dL (8.4-10.2); Carbon Dioxide 23 mmol/L (22-30); Chloride 103 mmol/L (98-107); Glucose 195 mg/dL (74-99); Magnesium 1.8 mg/dL (1.6-2.3); Non-African American GFR(CKD) >90 (>60 ml/min/1.73 sqM); Potassium 3.9 mmol/L (3.5-5.1); Sodium 136 mmol/L (137-145); Total Bilirubin 0.9 mg/dL (0.2-1.3); Total Protein 5.5 g/dL (6.3-8.2)
--- NOTE | 2021-03-25 12:51 | P.PN ---
Subjective Progress Note Date: 03/25/21 Principal diagnosis: Acute hypoxic respiratory failure secondary to COVID-19 pneumonia 03/24/2021, the patient is having more difficulty in breathing. This morning, the patient started having worsening shortness of breath and worsening and hypoxemia. The patient is currently on BiPAP at a pressure of 14/8 cm of water. He is quite tachypneic. The respiratory rate is around 34 times a minute and her minute ventilation is above 24 L per minute. She is quite tachypneic and short of breath and she is also tachycardic. Note that, the patient's condition was gradually getting worse over the past several days. The patient was on 9 L of oxygen by nasal cannula and there was progressive rise in her oxygen requirements and she was brought up to 15 L and later on to 100% nonrebreather facemask and currently she is on a BiPAP. At the same time, the patient is being treated with a combination of Decadron and Baricitinib per protocol. She is on Lovenox for DVT prophylaxis 40 mg subcu daily basis. This is consistent with COVID 19 related pneumonia. While on the BiPAP, she underwent a blood gas that showed a pH of 7.46 with a pCO2 of 37 and pO2 of 50. Subsequently, her oxygen saturations improved. Her d-dimer from yesterday was more than 34. Her CRP level was 14 and her LDH level was 657. Rest of the blood work shows a potassium level of 3.4 with a sodium of 140. Reevaluated today on 03/25/2021, patient was transferred to the ICU this morning, she was placed on 100% FiO2, and BiPAP, and her O2 saturations remained marginal. I evaluated the patient in the ICU, and she was made aware that her condition seems to be worsening and she will likely end up requiring intubation and mechanical ventilation. An hour later, the patient decompensated, and she required to be intubated and mechanically ventilated. Patient was placed initially on 100% FiO2, EPAP of 12, tidal volume is 400, rate of 30. ABG is pending. Her d-dimer is 34. The left lites are normal LDH 879 C-reactive protein 15.6. CT angiogram few days ago showed no evidence of pulmonary embo lism. Venous Doppler negative for DVT Objective - Vital Signs Vital signs: Vital Signs Temp 98.6 F 03/25/21 08:40 Pulse 93 03/25/21 11:30 Resp 30 H 03/25/21 11:30 BP 155/110 03/25/21 11:30 Pulse Ox 83 L 03/25/21 11:30 Intake & Output 03/24/21 03/25/21 03/25/21 18:59 06:59 18:59 Intake Total 334.686 Output Total 500 350 Balance -500 -15.314 Intake: IV 225 Sodium Chloride 0.9% 1, 225 000 ml @ 75 mls/hr IV . [id number] [facility] Rx#:[id number] Intake, IV Titration 9.686 Amount Dexmedetomidine/0.9% NaCl 6.240 (Pmx) 400 mcg In Empty Bag 1 bag @ 0.2 MCG/KG/HR 3.515 mls/hr IV .Q24H [facility] Rx#:[id number] propofoL 1,000 mg In 3.446 Empty Bag 1 bag @ Titrate IV .Q0M [facility] Rx#: [id number] Oral 100 Output: Urine 500 350 Other: Voiding Method Bedside Commode Bedside Commode # Voids 1 # Bowel Movements 1 - Exam General appearance: Revealed a 65-year-old female in moderate respiratory distress. On BiPAP.. Head exam: Atraumatic, normocephalic. Eye exam: PERRLA, EOMI, anicteric, no neck masses no JVD, no stridor. ENT exam:normal exam, mucous membranes moist Neck exam: Short obese neck, otherwise normal inspection Respiratory exam: Symmetrical chest expansion, crackles at the bases bilaterally. Cardiovascular Exam: Synthesizer, no S3 gallop. Extremities exam: No clubbing edema or cyanosis. Neurological exam: Oriented 3 no gross focal deficits. Psychiatric exam: [place] mood, normal affect, normal mental status examination. Skin exam: No rashes. - Labs CBC & Chem 7: 03/22/21 13:23 03/25/21 05:07 Labs: Abnormal Lab Results - Last 24 Hours (Table) 03/24/21 03/24/21 03/25/21 Range/Units 16:35 21:22 05:07 D-Dimer (<0.60) mg/L FEU BUN/Creatinine Ratio (12.00-20.00) Ratio Glucose (70-110) mg/dL POC Glucose (mg/dL) 262 H 230 H (75-99) mg/dL Calcium (8.7-10.3) mg/dL AST (13-35) U/L ALT (8-44) U/L Lactate Dehydrogenase (120-246) U/L C-Reactive Protein (0.00-0.80) mg/dL Total Protein (6.2-8.2) g/dL Albumin (3.8-4.9) g/dL Albumin/Globulin Ratio (1.60-3.17) g/dL Procalcitonin 1.54 H (0.02-0.09) ng/mL 03/25/21 03/25/21 03/25/21 Range/Units 05:07 05:07 07:07 D-Dimer >34.10 H (<0.60) mg/L FEU BUN/Creatinine Ratio 23.83 H (12.00-20.00) Ratio Glucose 162 H (70-110) mg/dL POC Glucose (mg/dL) 149 H (75-99) mg/dL Calcium 8.6 L (8.7-10.3) mg/dL AST 55 H (13-35) U/L ALT 92 H (8-44) U/L Lactate Dehydrogenase 879 H (120-246) U/L C-Reactive Protein 15.60 H (0.00-0.80) mg/dL Total Protein 5.4 L (6.2-8.2) g/dL Albumin 2.9 L (3.8-4.9) g/dL Albumin/Globulin Ratio 1.16 L (1.60-3.17) g/dL Procalcitonin (0.02-0.09) ng/mL 03/25/21 Range/Units 08:41 D-Dimer (<0.60) mg/L FEU BUN/Creatinine Ratio (12.00-20.00) Ratio Glucose (70-110) mg/dL POC Glucose (mg/dL) 125 H (75-99) mg/dL Calcium (8.7-10.3) mg/dL AST (13-35) U/L ALT (8-44) U/L Lactate Dehydrogenase (120-246) U/L C-Reactive Protein (0.00-0.80) mg/dL Total Protein (6.2-8.2) g/dL Albumin (3.8-4.9) g/dL Albumin/Globulin Ratio (1.60-3.17) g/dL Procalcitonin (0.02-0.09) ng/mL Assessment and Plan Assessment: Impression: Acute hypoxic respiratory failure secondary to COVID-19 pneumonia, requiring intubation and mechanical ventilation on 03/25/21, patient had symptoms about 11 days prior to presentation, her CT angiogram was negative for pulmonary embolism. And her Doppler was negative for DVT. Hence the patient will remain on Lovenox at 40 mg subcu twice a day. Elevated inflammatory markers and elevated d-dimer secondary to above. Type 2 diabetes. Hypothyroidism. Dyslipidemia. Recommendation: Patient was stressed to the ICU this morning, intubated shortly after. Presently on mechanical ventilation, awaiting ABG to adjust her ventilator settings. Continue Lovenox 40 mg subcu twice a day. Continue baricitinib Continue COVID-19 cocktail. We will arrange for patient to have central venous access. Enteral feeding/nutritional support. Prognosis extremely poor and guarded. We'll continue to follow. Continue ventilatory support. Critical care time is over 30 minutes. Time with Patient: Greater than 30
[2021-03-25 12:54] LABS: Basophils % (A) 0 %; Eosinophils # (A) 0.2 k/uL (0-0.7); Eosinophils % (A) 2 %; HCT 39.4 % (34.0-46.0); HGB 13.6 gm/dL (11.4-16.0); Lymphocytes # (A) 0.5 k/uL (1.0-4.8); Lymphocytes % (A) 6 %; MCH 30.8 pg (25.0-35.0); MCHC 34.5 g/dL (31.0-37.0); MCV 89.3 fL (80.0-100.0); Mean Platelet Volume 7.7; Monocytes # (A) 0.2 k/uL (0-1.0); Monocytes % (A) 2 %; Neutrophils # (A) 7.4 k/uL (1.3-7.7); Neutrophils % (A) 89 %; Platelet Count 250 k/uL (150-450); RBC 4.41 m/uL (3.80-5.40); RDW 14.2 % (11.5-15.5); WBC 8.4 k/uL (3.8-10.6)
--- NOTE | 2021-03-25 14:56 | PCN ---
PROCEDURE NOTE OPERATIVE REPORT: Placement of the right radial arterial line. PREOPERATIVE DIAGNOSIS: Acute hypoxic respiratory failure secondary to Covid 19 pneumonia. POSTOPERATIVE DIAGNOSIS: Acute hypoxic respiratory failure secondary to Covid 19 pneumonia. ANESTHESIA: Used none deployed. PROCEDURE: The right wrist was prepared in a sterile fashion. Drapes were applied, and the right radial artery was palpated, easily cannulated, and a guidewire was placed. A Cook catheter was inserted over the guidewire, and the guidewire was removed. Good blood flow, good waveform noted, no evidence of any complications. Line was secured using 3.0 silk sutures. MMODL / IJN: [id number] /
--- NOTE | 2021-03-25 14:56 | PCN ---
PROCEDURE NOTE OPERATIVE REPORT: Placement of the left subclavian central line. PREOPERATIVE DIAGNOSIS: Acute hypoxic respiratory failure secondary to Covid 19 pneumonia. POSTOPERATIVE DIAGNOSIS: Acute hypoxic respiratory failure secondary to Covid 19 pneumonia. ANESTHESIA: 2 mL of 1% lidocaine. PROCEDURE: The patient was placed in supine/Trendelenburg position, the area of the left subclavian region was prepared in a sterile fashion. Drapes were applied. The area below the left clavicle was locally anesthetized, and using the anterior approach, the left subclavian vein was easily cannulated, and a guidewire was placed. A triple-lumen catheter was inserted over the guidewire, the guidewire was removed. Good blood flow noted in the 3 different ports, line was secured using 3.0 silk sutures. Chest x-ray ordered postoperatively pending at the time of dictation. FÉLIX / KIMN: [id number] /
[2021-03-25] MEDS: SODIUM CHLORIDE 0.9% 1,000 ML IV SCH ×2 (15:23→23:37)
--- NOTE | 2021-03-25 15:29 | P.PN ---
Subjective Progress Note Date: 03/25/21 This is 65-year-old female with past medical history of diabetes mellitus, hyperlipidemia, hypertension, osteoarthritis, no smoking history presented to the ER with worsening dyspnea 10 days accompanied by loss of appetite, fatigue, cough. Denies fevers or sweats. Denies muscle aches. On admission patient was febrile with temperature 99.1, WBC 5.2, tachycardic, cachectic, maintaining O2 sats of 88% on room air. Patient's respiratory status has further worsened and currently maintaining O2 sats of mid 90s on 3 L nasal cannula. Displays exertional dyspnea after ambulating from BR. Coronavirus PCR positive. D-dimer 0.39, LDH 1108, CRP 18.6. Chest x-ray reporting reticular and some minimal patc hy opacity's over bilateral lower lungs, left greater than right. Hemoglobin 14.5, platelets 287. Sodium currently 132, potassium 5, BUN 27, creatinine 0.77. A.m. Accu-Chek currently being obtained, the blood sugar 231 last night. Denies chest pain, palpitations. 03/20/2021 continues on covid cocktail .oxygen requirements worsened, currently requiring 10 L high flow nasal cannula to maintain O2 sats in the high 80s to low 90s. Reports had coughing spells last night but no cough this morning .exertional shortness of breath .Denies chest pain, palpitations. Afebrile. Ambulatory markers improving with the exception of mild increase in d- dimer.Calcitonin minimally elevated, 0.12. BMP pending. Blood sugars better improving. 03/21/21 maintaining O2 sats in the low 90s on 2 L nasal cannula. Reports minimal nonproductive cough, exertional shortness of breath, loose stools. Blood sugars controlled .Denies chest pain, palpitations. Denies diaphoresis. Afebrile. 03/22/2021 O2 requirements worsened, currently requiring 15 L high flow. Anxious. Current the afebrile, T-max 99.8, labs pending. Yesterday consuming 50-75% of diet. This morning some hypoglycemia, currently 85. Hemoglobin A1c 6.5 03/25/2021 respiratory status worsened .BiPAP at 100%, maintaining O2 sats of m id 80s, transferred to ICU. Anxious. Precedex initiated. Labs pending. Objective - Vital Signs Vital signs: Vital Signs Temp 98.6 F 03/25/21 08:40 Pulse 93 03/25/21 11:30 Resp 30 H 03/25/21 11:30 BP 155/110 03/25/21 11:30 Pulse Ox 83 L 03/25/21 11:30 Intake & Output 03/24/21 03/25/21 03/25/21 18:59 06:59 18:59 Intake Total 384.359 Output Total 500 350 Balance -500 34.359 Weight 70.307 kg Intake: IV 225 Sodium Chloride 0.9% 1, 225 000 ml @ 75 mls/hr IV . [id number] [facility] Rx#:[id number] Intake, IV Titration 59.359 Amount Dexmedetomidine/0.9% NaCl 6.240 (Pmx) 400 mcg In Empty Bag 1 bag @ 0.2 MCG/KG/HR 3.515 mls/hr IV .Q24H [facility] Rx#:[id number] propofoL 1,000 mg In 53.119 Empty Bag 1 bag @ Titrate IV .Q0M [facility] Rx#: [id number] Oral 100 Output: Urine 500 350 Other: Voiding Method Bedside Commode Bedside Commode # Voids 1 # Bowel Movements 1 - Exam PHYSICAL EXAM: VITAL SIGNS: As above GENERAL: Alert and oriented 3, Sitting up in bed,NAD HEENT: Conjunctivae normal. eyes normal. Oral mucosa moist. NECK: Supple, No JVD. CARDIOVASCULAR: S1, S2 regular. No murmur RESPIRATION: Breath sounds diminished in the bases. ABDOMEN: Soft, nontender . No guarding. no masses palpable. Positive Bowel sounds. LEGS: No edema. no swelling NERVOUS SYSTEM: Cranial N 2-12 grossly normal. No focal deficits. Strength and sensation grossly intact. Skin: Warm, dry, no rash - Labs CBC & Chem 7: 03/25/21 11:52 03/25/21 11:52 Labs: Abnormal Lab Results - Last 24 Hours (Table) 03/24/21 03/24/21 03/25/21 Range/Units 16:35 21:22 05:07 Lymphocytes # (1.0-4.8) k/uL D-Dimer (<0.60) mg/L FEU ABG pO2 (83-108) mmHg ABG Total CO2 (19-24) mmol/L ABG O2 Saturation (94-97) % Sodium (137-145) mmol/L BUN/Creatinine Ratio (12.00-20.00) Ratio Glucose (70-110) mg/dL POC Glucose (mg/dL) 262 H 230 H (75-99) mg/dL Calcium (8.7-10.3) mg/dL AST (13-35) U/L ALT (8-44) U/L Alkaline Phosphatase (38-126) U/L Lactate Dehydrogenase (120-246) U/L C-Reactive Protein (0.00-0.80) mg/dL Total Protein (6.2-8.2) g/dL Albumin (3.8-4.9) g/dL Albumin/Globulin Ratio (1.60-3.17) g/dL Procalcitonin 1.54 H (0.02-0.09) ng/mL 03/25/21 03/25/21 03/25/21 Range/Units 05:07 05:07 07:07 Lymphocytes # (1.0-4.8) k/uL D-Dimer >34.10 H (<0.60) mg/L FEU ABG pO2 (83-108) mmHg ABG Total CO2 (19-24) mmol/L ABG O2 Saturation (94-97) % Sodium (137-145) mmol/L BUN/Creatinine Ratio 23.83 H (12.00-20.00) Ratio Glucose 162 H (70-110) mg/dL POC Glucose (mg/dL) 149 H (75-99) mg/dL Calcium 8.6 L (8.7-10.3) mg/dL AST 55 H (13-35) U/L ALT 92 H (8-44) U/L Alkaline Phosphatase (38-126) U/L Lactate Dehydrogenase 879 H (120-246) U/L C-Reactive Protein 15.60 H (0.00-0.80) mg/dL Total Protein 5.4 L (6.2-8.2) g/dL Albumin 2.9 L (3.8-4.9) g/dL Albumin/Globulin Ratio 1.16 L (1.60-3.17) g/dL Procalcitonin (0.02-0.09) ng/mL 03/25/21 03/25/21 03/25/21 Range/Units 08:41 11:52 11:52 Lymphocytes # 0.5 L (1.0-4.8) k/uL D-Dimer >34.10 H (<0.60) mg/L FEU ABG pO2 (83-108) mmHg ABG Total CO2 (19-24) mmol/L ABG O2 Saturation (94-97) % Sodium (137-145) mmol/L BUN/Creatinine Ratio (12.00-20.00) Ratio Glucose (70-110) mg/dL POC Glucose (mg/dL) 125 H (75-99) mg/dL Calcium (8.7-10.3) mg/dL AST (13-35) U/L ALT (8-44) U/L Alkaline Phosphatase (38-126) U/L Lactate Dehydrogenase (120-246) U/L C-Reactive Protein (0.00-0.80) mg/dL Total Protein (6.2-8.2) g/dL Albumin (3.8-4.9) g/dL Albumin/Globulin Ratio (1.60-3.17) g/dL Procalcitonin (0.02-0.09) ng/mL 03/25/21 03/25/21 Range/Units 11:52 12:42 Lymphocytes # (1.0-4.8) k/uL D-Dimer (<0.60) mg/L FEU ABG pO2 54 L* (83-108) mmHg ABG Total CO2 27 H (19-24) mmol/L ABG O2 Saturation 85.4 L (94-97) % Sodium 136 L (137-145) mmol/L BUN/Creatinine Ratio (12.00-20.00) Ratio Glucose 195 H (70-110) mg/dL POC Glucose (mg/dL) (75-99) mg/dL Calcium 8.1 L (8.7-10.3) mg/dL AST 56 H (13-35) U/L ALT 75 H (8-44) U/L Alkaline Phosphatase 138 H (38-126) U/L Lactate Dehydrogenase (120-246) U/L C-Reactive Protein (0.00-0.80) mg/dL Total Protein 5.5 L (6.2-8.2) g/dL Albumin 2.6 L (3.8-4.9) g/dL Albumin/Globulin Ratio (1.60-3.17) g/dL Procalcitonin (0.02-0.09) ng/mL Assessment and Plan Assessment: Acute COVID-19 pneumonia Acute hypoxic respiratory failure secondary to the above, worsening on BiPAP Hyponatremia, mild, resolved Diabetes mellitus, hyperglycemic hemoglobin A1c 6.5, in addition to steroid contribution Hypothyroidism Hyperlipidemia Plan: Continue on current medication regime ,monitoring and symptomatic treatment. Continue Covid cocktail. ICU management as per medical record consultant.Prognosis guarded given multiple complex medical issues. The impression and plan of care has been dictated as directed. : I performed a history and examination of this patient, discussed the same with the dictator. I agree with the dictator's note ,documented as a scribe. Any additional findings or plans will be noted.
--- NOTE | 2021-03-25 15:47 | XR ---
EXAMINATION TYPE: XR chest 1V portable DATE OF EXAM: 03/25/2021 COMPARISON: Chest x-ray same dated earlier time HISTORY: Status post central venous catheter placement TECHNIQUE: Single frontal view of the chest is obtained. FINDINGS: There is been interval repositioning of the endotracheal tube which is overlying the trach eal air column, NG tube remains in place coursing through the stomach, distal tip not included, left subclavian central venous catheter has been placed in the interval, distal tip is overlying the regio n of the superior vena cava. There is no evident pneumothorax or pleural effusion. There is some impr ovement in lung volume. Bilateral airspace disease persists. Cardiac mediastinal silhouette is likely stable accounting for differences in technique. IMPRESSION: No evident complication status post central line placement.
[2021-03-25] MEDS ORDERED: ARTIFICIAL TEARS-HYPROMELLOSE DROPS 15 ML BTL BOTH EYES PRN (16:06)
[2021-03-25 18:16] LABS: Glucose,Whole Blood 214 mg/dL (75-99)
[2021-03-25] MEDS: ATORVASTATIN 40 MG TAB PO SCH (20:57)
[2021-03-25] MEDS: lisinopriL 10 MG TAB PO SCH (20:57)
[2021-03-25] MEDS: CHLORHEXIDINE GLUCONATE 15 ML CUP MUCOUS MEM SCH (21:02)
[2021-03-25] MEDS: ARTIFICIAL TEARS-HYPROMELLOSE DROPS 15 ML BTL BOTH EYES SCH ×2 (21:03)
[2021-03-25 23:44] LABS: Glucose,Whole Blood 179 mg/dL (75-99)
[2021-03-26 04:29] LABS: Basophils % (A) 0 %; Eosinophils % (A) 0 %; Lymphocytes # (A) 0.6 k/uL (1.0-4.8); Lymphocytes % (A) 9 %; MCH 30.3 pg (25.0-35.0); MCHC 34.2 g/dL (31.0-37.0); MCV 88.4 fL (80.0-100.0); Mean Platelet Volume 7.8; Monocytes # (A) 0.3 k/uL (0-1.0); Monocytes % (A) 5 %; Neutrophils # (A) 5.3 k/uL (1.3-7.7); Neutrophils % (A) 85 %; Platelet Count 224 k/uL (150-450); RBC 3.62 m/uL (3.80-5.40); RDW 13.8 % (11.5-15.5); WBC 6.2 k/uL (3.8-10.6)
[2021-03-26 04:48] LABS: ALT 54 U/L (4-34); AST 38 U/L (14-36); African American GFR (CKD) >90 (>60 ml/min/1.73 sqM); Albumin 2.1 g/dL (3.5-5.0); Alkaline Phosphatase 84 U/L (38-126); Anion Gap 6 mmol/L; Blood Urea Nitrogen 23 mg/dL (7-17); Calcium 7.7 mg/dL (8.4-10.2); Carbon Dioxide 24 mmol/L (22-30); Chloride 106 mmol/L (98-107); Glucose 100 mg/dL (74-99); Non-African American GFR(CKD) >90 (>60 ml/min/1.73 sqM); Sodium 136 mmol/L (137-145); Total Bilirubin 0.3 mg/dL (0.2-1.3); Total Protein 4.7 g/dL (6.3-8.2)
[2021-03-26 06:09] LABS: ABG Base Excess -0.3 mmol/L; ABG HCO3 25 mmol/L (21-25); ABG Oxygen Saturation 98.3 % (94-97); ABG PCO2 40 mmHg (35-45); ABG PH 7.39 (7.35-7.45); ABG PO2 106 mmHg (83-108); ABG TCO2 26 mmol/L (19-24)
[2021-03-26] MEDS ORDERED: SODIUM CHLORIDE 0.9% 1,000 ML IV ONE (06:26)
[2021-03-26 06:28] LABS: Glucose,Whole Blood 106 mg/dL (75-99)
[2021-03-26 06:28] LABS: Allen Test Performed? No
[2021-03-26] MEDS: INSULIN ASPART (NovoLOG) 100 UNIT/ML VIAL SQ SCH ×5 (06:28→22:57)
[2021-03-26] MEDS: fentaNYL (PF). 1,000 MCG in SODIUM CHLORIDE 0.9% 80 ML IV SCH ×2 (06:28→21:04)
[2021-03-26] MEDS: LEVOTHYROXINE 75 MCG TAB PO SCH (06:30)
[2021-03-26] MEDS: ASCORBIC ACID 500 MG TAB PO SCH (08:06)
[2021-03-26] MEDS: CHOLECALCIFEROL 25 MCG (1000 IU) TABLET PO SCH (08:06)
[2021-03-26] MEDS: BARICITINIB 2 MG TABLET PO SCH (08:06)
[2021-03-26] MEDS: CHLORHEXIDINE GLUCONATE 15 ML CUP MUCOUS MEM SCH ×2 (08:06→20:43)
[2021-03-26] MEDS: ZINC SULFATE 220 MG CAP PO SCH (08:06)
[2021-03-26] MEDS: PANTOPRAZOLE 40 MG/10 ML VIAL IVP SCH (08:06)
[2021-03-26] MEDS: ARTIFICIAL TEARS-HYPROMELLOSE DROPS 15 ML BTL BOTH EYES SCH ×4 (08:07→20:43)
[2021-03-26] MEDS: DEXAMETHASONE SOD PHOSPHATE 10 MG/ML 1 ML VIAL IVP SCH (08:07)
[2021-03-26] MEDS: ENOXAPARIN 40 MG/0.4 ML SYRINGE SQ SCH ×2 (08:07→20:43)
[2021-03-26] MEDS: ALBUTEROL HFA INHALER INHALATION SCH ×5 (09:04→20:03)
--- NOTE | 2021-03-26 09:58 | XR ---
EXAMINATION TYPE: XR chest 1V portable DATE OF EXAM: 03/26/2021 COMPARISON: 03/25/2021 HISTORY: Central line placement TECHNIQUE: Single frontal view of the chest is obtained. FINDINGS: ET and NG tube and left-sided central line stable. Diffuse interstitial pattern with bilat eral infiltrate and pleural effusion stable. Heart size unchanged. No pneumothorax. IMPRESSION: Stable diffuse pleural-parenchymal changes correlate for CHF versus diffuse interstitial and alveolar pneumonia.
--- NOTE | 2021-03-26 14:18 | P.PN ---
Subjective Progress Note Date: 03/26/21 This is 65-year-old female with past medical history of diabetes mellitus, hyperlipidemia, hypertension, osteoarthritis, no smoking history presented to the ER with worsening dyspnea 10 days accompanied by loss of appetite, fatigue, cough. Denies fevers or sweats. Denies muscle aches. On admission patient was febrile with temperature 99.1, WBC 5.2, tachycardic, cachectic, maintaining O2 sats of 88% on room air. Patient's respiratory status has further worsened and currently maintaining O2 sats of mid 90s on 3 L nasal cannula. Displays exertional dyspnea after ambulating from BR. Coronavirus PCR positive. D-dimer 0.39, LDH 1108, CRP 18.6. Chest x-ray reporting reticular and some minimal patc hy opacity's over bilateral lower lungs, left greater than right. Hemoglobin 14.5, platelets 287. Sodium currently 132, potassium 5, BUN 27, creatinine 0.77. A.m. Accu-Chek currently being obtained, the blood sugar 231 last night. Denies chest pain, palpitations. 03/20/2021 continues on covid cocktail .oxygen requirements worsened, currently requiring 10 L high flow nasal cannula to maintain O2 sats in the high 80s to low 90s. Reports had coughing spells last night but no cough this morning .exertional shortness of breath .Denies chest pain, palpitations. Afebrile. Ambulatory markers improving with the exception of mild increase in d- dimer.Calcitonin minimally elevated, 0.12. BMP pending. Blood sugars better improving. 03/21/21 maintaining O2 sats in the low 90s on 2 L nasal cannula. Reports minimal nonproductive cough, exertional shortness of breath, loose stools. Blood sugars controlled .Denies chest pain, palpitations. Denies diaphoresis. Afebrile. 03/22/2021 O2 requirements worsened, currently requiring 15 L high flow. Anxious. Current the afebrile, T-max 99.8, labs pending. Yesterday consuming 50-75% of diet. This morning some hypoglycemia, currently 85. Hemoglobin A1c 6.5 03/25/2021 respiratory status worsened .BiPAP at 100%, maintaining O2 sats of m id 80s, transferred to ICU. Anxious. Precedex initiated. Labs pending. 03/26/21 remains vent dependent with FiO2 70/+14 of PEEP. Maintained on diprovan, fentanyl and Pneumovax. Afebrile, normal WBC. Chest x-ray reporting diffuse interstitial pattern of bilateral infiltrates and pleural effusion. Objective - Vital Signs Vital signs: Vital Signs Temp 97.0 F L 03/26/21 08:00 Pulse 85 03/26/21 12:30 Resp 32 H 03/26/21 12:30 BP 104/64 03/26/21 12:30 Pulse Ox 89 L 03/26/21 12:30 Intake & Output 03/25/21 03/26/21 03/26/21 18:59 06:59 18:59 Intake Total 071.133 8598.928 911.649 Output Total 585 340 180 Balance 339.581 791.928 731.649 Weight 70.307 kg 75 kg 75 kg Intake: IV 750 933 693 Sodium Chloride 0.9% 1, 750 900 675 000 ml @ 120 mls/hr IV . Q8H20M [facility] Rx#:[id number] pressure bag 33 18 Intake, IV Titration 74.581 198.928 118.649 Amount Cisatracurium 200 mg In 85.836 Sodium Chloride 0.9% 180 ml @ 1 MCG/KG/MIN 4.218 mls/hr IV .Q24H [facility] Rx#: [id number] Dexmedetomidine/0.9% NaCl 6.240 (Pmx) 400 mcg In Empty Bag 1 bag @ 0.2 MCG/KG/HR 3.515 mls/hr IV .Q24H [facility] Rx#:[id number] fentaNYL (PF). 1,000 mcg 63.446 In Sodium Chloride 0.9% 80 ml @ 0.5 MCG/KG/HR 3. 515 mls/hr IV .Q24H [facility] Rx#:[id number] propofoL 1,000 mg In 68.341 135.482 32.813 Empty Bag 1 bag @ Titrate IV .Q0M [facility] Rx#: [id number] Oral 100 100 Output: Urine 585 340 180 Other: Voiding Method Indwelling Catheter Indwelling Catheter Indwelling Catheter ABP, PAP, CO, CI - Last Documented Arterial Blood Pressure 110/56 - Exam Limited PHYSICAL EXAM on a intubated covid patient: VITAL SIGNS: As above GENERAL: Maintained on mechanical ventilator, sedated and on paralytics CARDIOVASCULAR: S1, S2 regular. Telemetry sinus rhythm ABD: Nondistended NERVOUS SYSTEM: Unable to evaluate, patient sedated and on paralytics - Labs CBC & Chem 7: 03/26/21 04:00 03/26/21 04:00 Labs: Abnormal Lab Results - Last 24 Hours (Table) 03/25/21 03/25/21 03/26/21 Range/Units 18:14 23:43 04:00 RBC 3.62 L (3.80-5.40) m/uL Hgb 11.0 L (11.4-16.0) gm/dL Hct 32.0 L (34.0-46.0) % Lymphocytes # 0.6 L (1.0-4.8) k/uL ABG Total CO2 (19-24) mmol/L ABG O2 Saturation (94-97) % Sodium (137-145) mmol/L BUN (7-17) mg/dL Creatinine (0.52-1.04) mg/dL Glucose (74-99) mg/dL POC Glucose (mg/dL) 214 H 179 H (75-99) mg/dL Calcium (8.4-10.2) mg/dL AST (14-36) U/L ALT (4-34) U/L Total Protein (6.3-8.2) g/dL Albumin (3.5-5.0) g/dL 03/26/21 03/26/21 03/26/21 Range/Units 04:00 05:25 06:27 RBC (3.80-5.40) m/uL Hgb (11.4-16.0) gm/dL Hct (34.0-46.0) % Lymphocytes # (1.0-4.8) k/uL ABG Total CO2 26 H (19-24) mmol/L ABG O2 Saturation 98.3 H (94-97) % Sodium 136 L (137-145) mmol/L BUN 23 H (7-17) mg/dL Creatinine 0.41 L (0.52-1.04) mg/dL Glucose 100 H (74-99) mg/dL POC Glucose (mg/dL) 106 H (75-99) mg/dL Calcium 7.7 L (8.4-10.2) mg/dL AST 38 H (14-36) U/L ALT 54 H (4-34) U/L Total Protein 4.7 L (6.3-8.2) g/dL Albumin 2.1 L (3.5-5.0) g/dL Assessment and Plan Assessment: Acute COVID-19 pneumonia Acute hypoxic respiratory failure secondary to the above, worsening on BiPAP Hyponatremia, mild, resolved Diabetes mellitus, hyperglycemic hemoglobin A1c 6.5, in addition to steroid contribution Hypothyroidism Hyperlipidemia Plan: Continue on current medication regime ,monitoring and symptomatic treatment. Covid cocktail. ICU management as per senior accounts payable clerk.Prognosis guarded given multiple complex medical issues. The impression and plan of care has been dictated as directed. : I performed a history and examination of this patient, discussed the same with the dictator. I agree with the dictator's note ,documented as a scribe. Any additional findings or plans will be noted.
--- NOTE | 2021-03-26 14:27 | P.PN ---
Subjective Progress Note Date: 03/26/21 Principal diagnosis: Acute hypoxic respiratory failure secondary to COVID-19 pneumonia 03/24/2021, the patient is having more difficulty in breathing. This morning, the patient started having worsening shortness of breath and worsening and hypoxemia. The patient is currently on BiPAP at a pressure of 14/8 cm of water. He is quite tachypneic. The respiratory rate is around 34 times a minute and her minute ventilation is above 24 L per minute. She is quite tachypneic and short of breath and she is also tachycardic. Note that, the patient's condition was gradually getting worse over the past several days. The patient was on 9 L of oxygen by nasal cannula and there was progressive rise in her oxygen requirements and she was brought up to 15 L and later on to 100% nonrebreather facemask and currently she is on a BiPAP. At the same time, the patient is being treated with a combination of Decadron and Baricitinib per protocol. She is on Lovenox for DVT prophylaxis 40 mg subcu daily basis. This is consistent with COVID 19 related pneumonia. While on the BiPAP, she underwent a blood gas that showed a pH of 7.46 with a pCO2 of 37 and pO2 of 50. Subsequently, her oxygen saturations improved. Her d-dimer from yesterday was more than 34. Her CRP level was 14 and her LDH level was 657. Rest of the blood work shows a potassium level of 3.4 with a sodium of 140. Reevaluated today on 03/25/2021, patient was transferred to the ICU this morning, she was placed on 100% FiO2, and BiPAP, and her O2 saturations remained marginal. I evaluated the patient in the ICU, and she was made aware that her condition seems to be worsening and she will likely end up requiring intubation and mechanical ventilation. An hour later, the patient decompensated, and she required to be intubated and mechanically ventilated. Patient was placed initially on 100% FiO2, EPAP of 12, tidal volume is 400, rate of 30. ABG is pending. Her d-dimer is 34. The left lites are normal LDH 879 C-reactive protein 15.6. CT angiogram few days ago showed no evidence of pulmonary embo lism. Venous Doppler negative for DVT Reevaluated today on 03/26/2021, patient remains in the ICU, intubated and mechanically ventilated. Patient is on assist control rate of 3 to tidal volume 400 FiO2 80%, PEEP of 14. Changes were made including tidal volume decreased to 375 FiO2 decreased to 70% PEEP increased to 16. Rate remained the same at 32. Patient is on propofol at 50 fentanyl at 0.5 Nimbex at 1.5. She is also on enteral feeding. She is hemodynamically stable, not requiring any pressors. Chest x-ray continues to show bilateral interstitial infiltrates consistent with COVID-19 pneumonia. Patient had negative workup for pulmonary embolism and negative workup for venous Doppler upon admission. ABG today showed a pO2 of 106 pCO2 of 40 pH of 7.39. Her CBC is relatively normal electrolytes are normal renal profile is normal. Objective - Vital Signs Vital signs: Vital Signs Temp 97.0 F L 03/26/21 08:00 Pulse 85 03/26/21 12:30 Resp 32 H 03/26/21 12:30 BP 104/64 03/26/21 12:30 Pulse Ox 89 L 03/26/21 12:30 Intake & Output 03/25/21 03/26/21 03/26/21 18:59 06:59 18:59 Intake Total 596.723 7979.928 911.649 Output Total 585 340 180 Balance 339.581 791.928 731.649 Weight 70.307 kg 75 kg 75 kg Intake: IV 750 933 693 Sodium Chloride 0.9% 1, 750 900 675 000 ml @ 120 mls/hr IV . Q8H20M [facility] Rx#:[id number] pressure bag 33 18 Intake, IV Titration 74.581 198.928 118.649 Amount Cisatracurium 200 mg In 85.836 Sodium Chloride 0.9% 180 ml @ 1 MCG/KG/MIN 4.218 mls/hr IV .Q24H [facility] Rx#: [id number] Dexmedetomidine/0.9% NaCl 6.240 (Pmx) 400 mcg In Empty Bag 1 bag @ 0.2 MCG/KG/HR 3.515 mls/hr IV .Q24H [facility] Rx#:[id number] fentaNYL (PF). 1,000 mcg 63.446 In Sodium Chloride 0.9% 80 ml @ 0.5 MCG/KG/HR 3. 515 mls/hr IV .Q24H [facility] Rx#:[id number] propofoL 1,000 mg In 68.341 135.482 32.813 Empty Bag 1 bag @ Titrate IV .Q0M [facility] Rx#: [id number] Oral 100 100 Output: Urine 585 340 180 Other: Voiding Method Indwelling Catheter Indwelling Catheter Indwelling Catheter ABP, PAP, CO, CI - Last Documented Arterial Blood Pressure 110/56 - Exam General appearance: Revealed a 65-year-old female intubated and mechanically ventilated. Head exam: Atraumatic, normocephalic. Endotracheal tube and orogastric tube are intact Eye exam: PERRLA, EOMI, anicteric, no neck masses no JVD, no stridor. ENT exam:normal exam, mucous membranes moist Neck exam: Short obese neck, otherwise normal inspection Respiratory exam: Symmetrical chest expansion, crackles at the bases bilaterally. Cardiovascular Exam: Synthesizer, no S3 gallop. Extremities exam: No clubbing edema or cyanosis. Neurological exam: Could not assess, patient is sedated on mechanical rose tilation. Psychiatric exam: Could not be assessed, patient is sedated and mechanically ventilated. Skin exam: No rashes. - Labs CBC & Chem 7: 03/26/21 04:00 03/26/21 04:00 Labs: Abnormal Lab Results - Last 24 Hours (Table) 03/25/21 03/25/21 03/26/21 Range/Units 18:14 23:43 04:00 RBC 3.62 L (3.80-5.40) m/uL Hgb 11.0 L (11.4-16.0) gm/dL Hct 32.0 L (34.0-46.0) % Lymphocytes # 0.6 L (1.0-4.8) k/uL ABG Total CO2 (19-24) mmol/L ABG O2 Saturation (94-97) % Sodium (137-145) mmol/L BUN (7-17) mg/dL Creatinine (0.52-1.04) mg/dL Glucose (74-99) mg/dL POC Glucose (mg/dL) 214 H 179 H (75-99) mg/dL Calcium (8.4-10.2) mg/dL AST (14-36) U/L ALT (4-34) U/L Total Protein (6.3-8.2) g/dL Albumin (3.5-5.0) g/dL 03/26/21 03/26/21 03/26/21 Range/Units 04:00 05:25 06:27 RBC (3.80-5.40) m/uL Hgb (11.4-16.0) gm/dL Hct (34.0-46.0) % Lymphocytes # (1.0-4.8) k/uL ABG Total CO2 26 H (19-24) mmol/L ABG O2 Saturation 98.3 H (94-97) % Sodium 136 L (137-145) mmol/L BUN 23 H (7-17) mg/dL Creatinine 0.41 L (0.52-1.04) mg/dL Glucose 100 H (74-99) mg/dL POC Glucose (mg/dL) 106 H (75-99) mg/dL Calcium 7.7 L (8.4-10.2) mg/dL AST 38 H (14-36) U/L ALT 54 H (4-34) U/L Total Protein 4.7 L (6.3-8.2) g/dL Albumin 2.1 L (3.5-5.0) g/dL Assessment and Plan Assessment: Impression: Acute hypoxic respiratory failure secondary to COVID-19 pneumonia, requiring intubation and mechanical ventilation on 03/25/21, patient had symptoms about 11 days prior to presentation, her CT angiogram was negative for pulmonary embolism. And her Doppler was negative for DVT. Hence the patient will remain on Lovenox at 40 mg subcu twice a day. Patient remains on relatively high FiO2 and high PEEP, today I was able to cut down the FiO2 to 70%, decrease her tidal volume to 375 and kept her on propofol fentanyl and Nimbex. Also started enteral feeding Elevated inflammatory markers and elevated d-dimer secondary to above. Type 2 diabetes. Hypothyroidism. Dyslipidemia. Recommendation: Continue ventilatory support. Nutritional support/enteral feeding GI prophylaxis. Continue Lovenox 40 mg subcu twice a day. Continue baricitinib Continue COVID-19 cocktail. Prognosis extremely poor and guarded. We'll continue to follow. Continue ventilatory support. Critical care time is over 30 minutes. Time with Patient: Greater than 30
[2021-03-26] MEDS: SODIUM CHLORIDE 0.9% 1,000 ML IV SCH ×2 (16:05→20:43)
[2021-03-26 18:31] LABS: Glucose,Whole Blood 182 mg/dL (75-99)
[2021-03-26] MEDS: CISATRACURIUM 200 MG in SODIUM CHLORIDE 0.9% 180 ML IV SCH ×2 (20:05→20:44)
[2021-03-26] MEDS: lisinopriL 10 MG TAB PO SCH (20:37)
[2021-03-26] MEDS: ATORVASTATIN 40 MG TAB PO SCH (20:43)
[2021-03-27 02:16] LABS: Glucose,Whole Blood 174 mg/dL (75-99)
[2021-03-27] MEDS ORDERED: PROPOFOL 10 MG/ML 100 ML VIAL IV ONE (02:43)
[2021-03-27 04:41] LABS: ALT 49 U/L (4-34); AST 27 U/L (14-36); African American GFR (CKD) >90 (>60 ml/min/1.73 sqM); Albumin 2.4 g/dL (3.5-5.0); Alkaline Phosphatase 109 U/L (38-126); Anion Gap 5 mmol/L; Blood Urea Nitrogen 33 mg/dL (7-17); Calcium 8.1 mg/dL (8.4-10.2); Carbon Dioxide 22 mmol/L (22-30); Chloride 110 mmol/L (98-107); Glucose 189 mg/dL (74-99); Non-African American GFR(CKD) >90 (>60 ml/min/1.73 sqM); Sodium 137 mmol/L (137-145); Total Bilirubin 0.2 mg/dL (0.2-1.3); Total Protein 5.2 g/dL (6.3-8.2)
[2021-03-27 05:18] LABS: ABG Base Excess -5.1 mmol/L; ABG HCO3 21 mmol/L (21-25); ABG Oxygen Saturation 92.6 % (94-97); ABG PCO2 44 mmHg (35-45); ABG PO2 67 mmHg (83-108); ABG TCO2 23 mmol/L (19-24); Allen Test Performed? Yes
[2021-03-27 05:45] LABS: Basophils % (A) 0 %; Eosinophils # (A) 0.1 k/uL (0-0.7); Eosinophils % (A) 1 %; HCT 40.1 % (34.0-46.0); HGB 12.7 gm/dL (11.4-16.0); Hypochromasia Slight; Lymphocytes % (A) 8 %; MCH 30.5 pg (25.0-35.0); MCHC 31.8 g/dL (31.0-37.0); Mean Platelet Volume 8.5; Monocytes # (A) 0.4 k/uL (0-1.0); Monocytes % (A) 3 %; Neutrophils # (A) 10.8 k/uL (1.3-7.7); Neutrophils % (A) 86 %; Platelet Count 337 k/uL (150-450); RBC 4.18 m/uL (3.80-5.40); RDW 14.5 % (11.5-15.5); WBC 12.5 k/uL (3.8-10.6)
[2021-03-27 05:52] LABS: MCV 95.8 fL (80.0-100.0)
[2021-03-27 06:23] LABS: Glucose,Whole Blood 185 mg/dL (75-99)
[2021-03-27] MEDS: LEVOTHYROXINE 75 MCG TAB PO SCH (06:25)
[2021-03-27] MEDS: INSULIN ASPART (NovoLOG) 100 UNIT/ML VIAL SQ SCH ×3 (06:25→17:28)
[2021-03-27] MEDS: SODIUM CHLORIDE 0.9% 1,000 ML IV SCH ×2 (06:26→18:17)
[2021-03-27] MEDS: ALBUTEROL HFA INHALER INHALATION SCH ×4 (07:53→19:20)
--- NOTE | 2021-03-27 08:57 | XR ---
EXAMINATION TYPE: XR chest 1V portable DATE OF EXAM: 03/27/2021 COMPARISON: 03/26/2021 HISTORY: Tube placement TECHNIQUE: Single frontal view of the chest is obtained. FINDINGS: ET and NG tube and left-sided central line stable. Diffuse interstitial pattern with bilat eral infiltrate and pleural effusion stable. Heart size unchanged. No pneumothorax. IMPRESSION: Stable diffuse pleural-parenchymal changes correlate for CHF versus diffuse interstitial and alveolar pneumonia.
[2021-03-27] MEDS: NOREPINEPHRINE 32 MG in SODIUM CHLORIDE 0.9% 218 ML IV SCH (09:04)
[2021-03-27] MEDS: ASCORBIC ACID 500 MG TAB PO SCH (10:06)
[2021-03-27] MEDS: PANTOPRAZOLE 40 MG/10 ML VIAL IVP SCH (10:06)
[2021-03-27] MEDS: CHOLECALCIFEROL 25 MCG (1000 IU) TABLET PO SCH (10:06)
[2021-03-27] MEDS: BARICITINIB 2 MG TABLET PO SCH (10:06)
[2021-03-27] MEDS: CHLORHEXIDINE GLUCONATE 15 ML CUP MUCOUS MEM SCH ×2 (10:06→20:53)
[2021-03-27] MEDS: ARTIFICIAL TEARS-HYPROMELLOSE DROPS 15 ML BTL BOTH EYES SCH ×4 (10:06→21:04)
[2021-03-27] MEDS: ZINC SULFATE 220 MG CAP PO SCH (10:06)
[2021-03-27] MEDS: ENOXAPARIN 40 MG/0.4 ML SYRINGE SQ SCH ×2 (10:07→20:53)
[2021-03-27] MEDS: DEXAMETHASONE SOD PHOSPHATE 10 MG/ML 1 ML VIAL IVP SCH (10:07)
--- NOTE | 2021-03-27 13:05 | P.PN ---
Subjective Progress Note Date: 03/27/21 Principal diagnosis: Acute hypoxic respiratory failure secondary to COVID-19 pneumonia 03/24/2021, the patient is having more difficulty in breathing. This morning, the patient started having worsening shortness of breath and worsening and hypoxemia. The patient is currently on BiPAP at a pressure of 14/8 cm of water. He is quite tachypneic. The respiratory rate is around 34 times a minute and her minute ventilation is above 24 L per minute. She is quite tachypneic and short of breath and she is also tachycardic. Note that, the patient's condition was gradually getting worse over the past several days. The patient was on 9 L of oxygen by nasal cannula and there was progressive rise in her oxygen requirements and she was brought up to 15 L and later on to 100% nonrebreather facemask and currently she is on a BiPAP. At the same time, the patient is being treated with a combination of Decadron and Baricitinib per protocol. She is on Lovenox for DVT prophylaxis 40 mg subcu daily basis. This is consistent with COVID 19 related pneumonia. While on the BiPAP, she underwent a blood gas that showed a pH of 7.46 with a pCO2 of 37 and pO2 of 50. Subsequently, her oxygen saturations improved. Her d-dimer from yesterday was more than 34. Her CRP level was 14 and her LDH level was 657. Rest of the blood work shows a potassium level of 3.4 with a sodium of 140. Reevaluated today on 03/25/2021, patient was transferred to the ICU this morning, she was placed on 100% FiO2, and BiPAP, and her O2 saturations remained marginal. I evaluated the patient in the ICU, and she was made aware that her condition seems to be worsening and she will likely end up requiring intubation and mechanical ventilation. An hour later, the patient decompensated, and she required to be intubated and mechanically ventilated. Patient was placed initially on 100% FiO2, EPAP of 12, tidal volume is 400, rate of 30. ABG is pending. Her d-dimer is 34. The left lites are normal LDH 879 C-reactive protein 15.6. CT angiogram few days ago showed no evidence of pulmonary embo lism. Venous Doppler negative for DVT Reevaluated today on 03/26/2021, patient remains in the ICU, intubated and mechanically ventilated. Patient is on assist control rate of 3 to tidal volume 400 FiO2 80%, PEEP of 14. Changes were made including tidal volume decreased to 375 FiO2 decreased to 70% PEEP increased to 16. Rate remained the same at 32. Patient is on propofol at 50 fentanyl at 0.5 Nimbex at 1.5. She is also on enteral feeding. She is hemodynamically stable, not requiring any pressors. Chest x-ray continues to show bilateral interstitial infiltrates consistent with COVID-19 pneumonia. Patient had negative workup for pulmonary embolism and negative workup for venous Doppler upon admission. ABG today showed a pO2 of 106 pCO2 of 40 pH of 7.39. Her CBC is relatively normal electrolytes are normal renal profile is normal. Reevaluated today on 03/27/2021, remains in the ICU intubated and mechanically ventilated. She is presently on assist control rate of 3 to tidal volume 375 PEEP is 16, FiO2 60%. ABG showed a pO2 of 67 pCO2 44 pH of 7.30. Hence I cut down her FiO2 to 55%. Patient remains on propofol at 40 mcg/kg/m norepinephrine at 0.05 mcg/kg/m Nimbex at 1.5 mcg/kg/ minute, and fentanyl 0.5 mcg/kg/h. Patient remains sedated and paralyzed, her ABG this morning showed a pO2 of 67 pCO2 of 44 pH of 7.30, FiO2 decreased to 55%. However as I was dictating this note, I was notified by the nurse that she developed subcu emphysema, and I'm recommending a stat chest x-ray, to determine if the patient has a new onset normal mediastinum or possibly a pneumothorax. Chest x-ray is pending at the time of this dictation. A shunt remains on enteral feedings. She is requiring a small dose of norepinephrine for hemodynamic instability. Objective - Vital Signs Vital signs: Vital Signs Temp 98.1 F 03/27/21 08:00 Pulse 100 03/27/21 10:30 Resp 21 03/27/21 10:30 BP 106/73 03/27/21 07:00 Pulse Ox 92 L 03/27/21 10:30 Intake & Output 03/26/21 03/27/21 03/27/21 18:59 06:59 18:59 Intake Total 2354.747 0358.858 948.009 Output Total 395 380 150 Balance 5244.059 8808.858 798.009 Weight 75 kg 78 kg Intake: IV 1431 1476 738 Sodium Chloride 0.9% 1, 1395 1440 720 000 ml @ 120 mls/hr IV . Q8H20M [facility] Rx#:[id number] pressure bag 36 36 18 Intake, IV Titration 315.518 295.858 18.009 Amount Cisatracurium 200 mg In 147.639 31.111 Sodium Chloride 0.9% 180 ml @ 1 MCG/KG/MIN 4.218 mls/hr IV .Q24H [facility] Rx#: [id number] fentaNYL (PF). 1,000 mcg 42.004 46.721 13.095 In Sodium Chloride 0.9% 80 ml @ 0.5 MCG/KG/HR 3. 515 mls/hr IV .Q24H [facility] Rx#:[id number] propofoL 1,000 mg In 125.875 218.026 4.914 Empty Bag 1 bag @ Titrate IV .Q0M [facility] Rx#: [id number] Oral 100 Tube Feeding 20 288 192 Other 60 Output: Urine 395 380 150 Other: Voiding Method Indwelling Catheter Indwelling Catheter ABP, PAP, CO, CI - Last Documented Arterial Blood Pressure 114/69 - Exam General appearance: Revealed a 65-year-old female intubated and mechanically ventilated. Head exam: Atraumatic, normocephalic. Endotracheal tube and orogastric tube are intact Eye exam: PERRLA, EOMI, anicteric, no neck masses no JVD, no stridor. ENT exam:normal exam, mucous membranes moist Neck exam: Short obese neck, otherwise normal inspection Respiratory exam: Symmetrical chest expansion, crackles at the bases bilaterally. Cardiovascular Exam: Synthesizer, no S3 gallop. Extremities exam: No clubbing edema or cyanosis. Neurological exam: Could not assess, patient is sedated on mechanical rose tilation. Psychiatric exam: Could not be assessed, patient is sedated and mechanically ventilated. Skin exam: No rashes. - Labs CBC & Chem 7: 03/27/21 04:05 03/27/21 04:05 Labs: Abnormal Lab Results - Last 24 Hours (Table) 03/26/21 03/26/21 03/27/21 Range/Units 18:28 22:57 04:05 WBC 12.5 H (3.8-10.6) k/uL Neutrophils # 10.8 H (1.3-7.7) k/uL ABG pH (7.35-7.45) ABG pO2 (83-108) mmHg ABG O2 Saturation (94-97) % Chloride (98-107) mmol/L BUN (7-17) mg/dL Glucose (74-99) mg/dL POC Glucose (mg/dL) 182 H 174 H (75-99) mg/dL Calcium (8.4-10.2) mg/dL ALT (4-34) U/L Total Protein (6.3-8.2) g/dL Albumin (3.5-5.0) g/dL 03/27/21 03/27/21 03/27/21 Range/Units 04:05 05:06 06:11 WBC (3.8-10.6) k/uL Neutrophils # (1.3-7.7) k/uL ABG pH 7.30 L (7.35-7.45) ABG pO2 67 L (83-108) mmHg ABG O2 Saturation 92.6 L (94-97) % Chloride 110 H (98-107) mmol/L BUN 33 H (7-17) mg/dL Glucose 189 H (74-99) mg/dL POC Glucose (mg/dL) 185 H (75-99) mg/dL Calcium 8.1 L (8.4-10.2) mg/dL ALT 49 H (4-34) U/L Total Protein 5.2 L (6.3-8.2) g/dL Albumin 2.4 L (3.5-5.0) g/dL Assessment and Plan Assessment: Impression: Acute hypoxic respiratory failure secondary to COVID-19 pneumonia, requiring intubation and mechanical ventilation on 03/25/21, patient had symptoms about 11 days prior to presentation, her CT angiogram was negative for pulmonary embolism. And her Doppler was negative for DVT. Hence the patient will remain on Lovenox at 40 mg subcu twice a day. Elevated inflammatory markers and elevated d-dimer secondary to above. Type 2 diabetes. Hypothyroidism. Dyslipidemia. New onset subcu emphysema, rule out pneumomediastinum with subcu emphysema or pneumothorax, chest x-ray was ordered while I was dictating this note. Recommendation: Continue ventilatory support. Nutritional support/enteral feeding GI prophylaxis. Continue Lovenox 40 mg subcu twice a day. Continue baricitinib Continue COVID-19 cocktail. Patient is definitely critically ill. Critical care time is over 30 minutes. Time with Patient: Greater than 30
--- NOTE | 2021-03-27 13:26 | XR ---
EXAMINATION TYPE: XR chest 1V portable DATE OF EXAM: 03/27/2021 COMPARISON: 03/27/2021 HISTORY: Shortness of breath abnormal clinical exam TECHNIQUE: Single frontal view of the chest is obtained. FINDINGS: There is diffuse subcutaneous emphysema as well as evidence of pneumomediastinum. Diffuse bilateral infiltrate stable. ETT, NG tube, and central line stable. Heart size stable. IMPRESSION: 1. Interval development of subcutaneous emphysema and pneumomediastinum. 2. Bilateral infiltrates are stable.
--- NOTE | 2021-03-27 15:00 | P.PN ---
Subjective Progress Note Date: 03/27/21 This is 65-year-old female with past medical history of diabetes mellitus, hyperlipidemia, hypertension, osteoarthritis, no smoking history presented to the ER with worsening dyspnea 10 days accompanied by loss of appetite, fatigue, cough. Denies fevers or sweats. Denies muscle aches. On admission patient was febrile with temperature 99.1, WBC 5.2, tachycardic, cachectic, maintaining O2 sats of 88% on room air. Patient's respiratory status has further worsened and currently maintaining O2 sats of mid 90s on 3 L nasal cannula. Displays exertional dyspnea after ambulating from BR. Coronavirus PCR positive. D-dimer 0.39, LDH 1108, CRP 18.6. Chest x-ray reporting reticular and some minimal patc hy opacity's over bilateral lower lungs, left greater than right. Hemoglobin 14.5, platelets 287. Sodium currently 132, potassium 5, BUN 27, creatinine 0.77. A.m. Accu-Chek currently being obtained, the blood sugar 231 last night. Denies chest pain, palpitations. 03/20/2021 continues on covid cocktail .oxygen requirements worsened, currently requiring 10 L high flow nasal cannula to maintain O2 sats in the high 80s to low 90s. Reports had coughing spells last night but no cough this morning .exertional shortness of breath .Denies chest pain, palpitations. Afebrile. Ambulatory markers improving with the exception of mild increase in d- dimer.Calcitonin minimally elevated, 0.12. BMP pending. Blood sugars better improving. 03/21/21 maintaining O2 sats in the low 90s on 2 L nasal cannula. Reports minimal nonproductive cough, exertional shortness of breath, loose stools. Blood sugars controlled .Denies chest pain, palpitations. Denies diaphoresis. Afebrile. 03/22/2021 O2 requirements worsened, currently requiring 15 L high flow. Anxious. Current the afebrile, T-max 99.8, labs pending. Yesterday consuming 50-75% of diet. This morning some hypoglycemia, currently 85. Hemoglobin A1c 6.5 03/25/2021 respiratory status worsened .BiPAP at 100%, maintaining O2 sats of m id 80s, transferred to ICU. Anxious. Precedex initiated. Labs pending. 03/26/21 remains vent dependent with FiO2 70/+14 of PEEP. Maintained on diprovan, fentanyl and Pneumovax. Afebrile, normal WBC. Chest x-ray reporting diffuse interstitial pattern of bilateral infiltrates and pleural effusion. 03/27/2021 remains vent dependent, FiO2 60%/+16 of PEEP. Chest x-ray reporting diffuse pleural-parenchymal changes.Maintained on Nimbex, Levophed, fentanyl, diprovan. Continues on covid cocktail. Objective - Vital Signs Vital signs: Vital Signs Temp 99.4 F 03/27/21 12:00 Pulse 120 H 03/27/21 13:00 Resp 9 L 03/27/21 13:00 BP 106/73 03/27/21 07:00 Pulse Ox 87 L 03/27/21 13:00 Intake & Output 03/26/21 03/27/21 03/27/21 18:59 06:59 18:59 Intake Total 5148.221 8631.858 1103.009 Output Total 395 380 180 Balance 3093.688 3954.858 923.009 Weight 75 kg 78 kg Intake: IV 1431 1476 861 Sodium Chloride 0.9% 1, 1395 1440 840 000 ml @ 120 mls/hr IV . Q8H20M [facility] Rx#:[id number] pressure bag 36 36 21 Intake, IV Titration 315.518 295.858 18.009 Amount Cisatracurium 200 mg In 147.639 31.111 Sodium Chloride 0.9% 180 ml @ 1 MCG/KG/MIN 4.218 mls/hr IV .Q24H [facility] Rx#: [id number] fentaNYL (PF). 1,000 mcg 42.004 46.721 13.095 In Sodium Chloride 0.9% 80 ml @ 0.5 MCG/KG/HR 3. 515 mls/hr IV .Q24H [facility] Rx#:[id number] propofoL 1,000 mg In 125.875 218.026 4.914 Empty Bag 1 bag @ Titrate IV .Q0M [facility] Rx#: [id number] Oral 100 Tube Feeding 20 288 224 Other 60 Output: Urine 395 380 180 Other: Voiding Method Indwelling Catheter Indwelling Catheter Indwelling Catheter ABP, PAP, CO, CI - Last Documented Arterial Blood Pressure 113/65 - Exam Limited PHYSICAL EXAM on a intubated covid patient: VITAL SIGNS: As above GENERAL: Maintained on mechanical ventilator, sedated and on paralytics CARDIOVASCULAR: S1, S2 regular. Telemetry sinus rhythm ABD: Nondistended NERVOUS SYSTEM: Unable to evaluate, patient sedated and on paralytics - Labs CBC & Chem 7: 03/27/21 04:05 03/27/21 04:05 Labs: Abnormal Lab Results - Last 24 Hours (Table) 03/26/21 03/26/21 03/27/21 Range/Units 18:28 22:57 04:05 WBC 12.5 H (3.8-10.6) k/uL Neutrophils # 10.8 H (1.3-7.7) k/uL ABG pH (7.35-7.45) ABG pO2 (83-108) mmHg ABG O2 Saturation (94-97) % Chloride (98-107) mmol/L BUN (7-17) mg/dL Glucose (74-99) mg/dL POC Glucose (mg/dL) 182 H 174 H (75-99) mg/dL Calcium (8.4-10.2) mg/dL ALT (4-34) U/L Total Protein (6.3-8.2) g/dL Albumin (3.5-5.0) g/dL 03/27/21 03/27/21 03/27/21 Range/Units 04:05 05:06 06:11 WBC (3.8-10.6) k/uL Neutrophils # (1.3-7.7) k/uL ABG pH 7.30 L (7.35-7.45) ABG pO2 67 L (83-108) mmHg ABG O2 Saturation 92.6 L (94-97) % Chloride 110 H (98-107) mmol/L BUN 33 H (7-17) mg/dL Glucose 189 H (74-99) mg/dL POC Glucose (mg/dL) 185 H (75-99) mg/dL Calcium 8.1 L (8.4-10.2) mg/dL ALT 49 H (4-34) U/L Total Protein 5.2 L (6.3-8.2) g/dL Albumin 2.4 L (3.5-5.0) g/dL Assessment and Plan Assessment: Acute COVID-19 pneumonia Acute hypoxic respiratory failure secondary to the above, worsening on BiPAP Hyponatremia, mild, resolved Diabetes mellitus, hyperglycemic hemoglobin A1c 6.5, in addition to steroid contribution Hypothyroidism Hyperlipidemia Plan: Continue on current medication regime ,monitoring and symptomatic treatment. Covid cocktail. ICU management as per scaffold builder.Prognosis guarded given multiple complex medical issues. The impression and plan of care has been dictated as directed. : I performed a history and examination of this patient, discussed the same with the dictator. I agree with the dictator's note ,documented as a scribe. Any additional findings or plans will be noted.
[2021-03-27 16:59] LABS: Glucose,Whole Blood 292 mg/dL (75-99)
[2021-03-27] MEDS: ATORVASTATIN 40 MG TAB PO SCH (20:53)
[2021-03-27] MEDS: lisinopriL 10 MG TAB PO SCH (21:01)
[2021-03-27 23:56] LABS: Glucose,Whole Blood 274 mg/dL (75-99)
[2021-03-28] MEDS: SODIUM CHLORIDE 0.9% 1,000 ML IV SCH ×4 (00:41→20:53)
[2021-03-28] MEDS: fentaNYL (PF). 1,000 MCG in SODIUM CHLORIDE 0.9% 80 ML IV SCH ×2 (01:30→23:53)
[2021-03-28 04:15] LABS: Basophils % (A) 0 %; Eosinophils # (A) 0.1 k/uL (0-0.7); Eosinophils % (A) 1 %; HCT 39.4 % (34.0-46.0); HGB 12.2 gm/dL (11.4-16.0); Hypochromasia Slight; Lymphocytes # (A) 0.8 k/uL (1.0-4.8); Lymphocytes % (A) 7 %; MCH 29.6 pg (25.0-35.0); MCV 95.2 fL (80.0-100.0); Mean Platelet Volume 8.1; Monocytes # (A) 0.4 k/uL (0-1.0); Monocytes % (A) 4 %; Neutrophils # (A) 10.3 k/uL (1.3-7.7); Neutrophils % (A) 87 %; Platelet Count 364 k/uL (150-450); RBC 4.14 m/uL (3.80-5.40); RDW 14.4 % (11.5-15.5); WBC 11.8 k/uL (3.8-10.6)
[2021-03-28 04:55] LABS: ALT 46 U/L (4-34); AST 35 U/L (14-36); African American GFR (CKD) >90 (>60 ml/min/1.73 sqM); Albumin 2.3 g/dL (3.5-5.0); Alkaline Phosphatase 114 U/L (38-126); Anion Gap 5 mmol/L; Blood Urea Nitrogen 36 mg/dL (7-17); Calcium 8.2 mg/dL (8.4-10.2); Carbon Dioxide 22 mmol/L (22-30); Chloride 112 mmol/L (98-107); Glucose 261 mg/dL (74-99); Non-African American GFR(CKD) >90 (>60 ml/min/1.73 sqM); Potassium 4.5 mmol/L (3.5-5.1); Sodium 139 mmol/L (137-145); Total Bilirubin 0.2 mg/dL (0.2-1.3); Total Protein 5.2 g/dL (6.3-8.2)
[2021-03-28 05:36] LABS: Glucose,Whole Blood 264 mg/dL (75-99)
[2021-03-28] MEDS: INSULIN ASPART (NovoLOG) 100 UNIT/ML VIAL SQ SCH ×5 (05:39→23:39)
[2021-03-28] MEDS: LEVOTHYROXINE 75 MCG TAB PO SCH (05:39)
[2021-03-28 06:02] LABS: ABG Base Excess -2.8 mmol/L; ABG HCO3 24 mmol/L (21-25); ABG Oxygen Saturation 92.9 % (94-97); ABG PCO2 49 mmHg (35-45); ABG PO2 67 mmHg (83-108); ABG TCO2 25 mmol/L (19-24); Allen Test Performed? Yes
--- NOTE | 2021-03-28 08:38 | XR ---
EXAMINATION TYPE: XR chest 1V portable DATE OF EXAM: 03/28/2021 COMPARISON: 03/27/21 HISTORY: SOB, Follow Up FINDINGS: Indwelling tubes and catheters are unchanged. Extensive subcutaneous emphysema redemonstrated. No change in bibasilar opacities. Stable appearance of the cardio-mediastinal structures at this time. IMPRESSION: 1. Stable portable chest. Clinical correlation and follow up until resolution is recommended.
[2021-03-28] MEDS: ALBUTEROL HFA INHALER INHALATION SCH ×4 (09:09→20:45)
[2021-03-28] MEDS: ENOXAPARIN 40 MG/0.4 ML SYRINGE SQ SCH ×2 (09:23→20:50)
[2021-03-28] MEDS: PANTOPRAZOLE 40 MG/10 ML VIAL IVP SCH (09:24)
[2021-03-28] MEDS: CHOLECALCIFEROL 25 MCG (1000 IU) TABLET PO SCH (09:24)
[2021-03-28] MEDS: ASCORBIC ACID 500 MG TAB PO SCH (09:24)
[2021-03-28] MEDS: CHLORHEXIDINE GLUCONATE 15 ML CUP MUCOUS MEM SCH ×2 (09:24→20:50)
[2021-03-28] MEDS: DEXAMETHASONE SOD PHOSPHATE 10 MG/ML 1 ML VIAL IVP SCH (09:24)
[2021-03-28] MEDS: NOREPINEPHRINE 32 MG in SODIUM CHLORIDE 0.9% 218 ML IV SCH (09:48)
[2021-03-28] MEDS: ARTIFICIAL TEARS-HYPROMELLOSE DROPS 15 ML BTL BOTH EYES SCH ×4 (09:49→21:56)
[2021-03-28] MEDS: BARICITINIB 2 MG TABLET PO SCH (09:52)
[2021-03-28] MEDS: ZINC SULFATE 220 MG CAP PO SCH (10:01)
[2021-03-28] MEDS: CISATRACURIUM 200 MG in SODIUM CHLORIDE 0.9% 180 ML IV SCH ×2 (13:00→20:52)
[2021-03-28 13:03] LABS: Glucose,Whole Blood 241 mg/dL (75-99)
--- NOTE | 2021-03-28 13:10 | P.PN ---
Subjective Progress Note Date: 03/28/21 Principal diagnosis: Acute hypoxic respiratory failure secondary to COVID-19 pneumonia 03/24/2021, the patient is having more difficulty in breathing. This morning, the patient started having worsening shortness of breath and worsening and hypoxemia. The patient is currently on BiPAP at a pressure of 14/8 cm of water. He is quite tachypneic. The respiratory rate is around 34 times a minute and her minute ventilation is above 24 L per minute. She is quite tachypneic and short of breath and she is also tachycardic. Note that, the patient's condition was gradually getting worse over the past several days. The patient was on 9 L of oxygen by nasal cannula and there was progressive rise in her oxygen requirements and she was brought up to 15 L and later on to 100% nonrebreather facemask and currently she is on a BiPAP. At the same time, the patient is being treated with a combination of Decadron and Baricitinib per protocol. She is on Lovenox for DVT prophylaxis 40 mg subcu daily basis. This is consistent with COVID 19 related pneumonia. While on the BiPAP, she underwent a blood gas that showed a pH of 7.46 with a pCO2 of 37 and pO2 of 50. Subsequently, her oxygen saturations improved. Her d-dimer from yesterday was more than 34. Her CRP level was 14 and her LDH level was 657. Rest of the blood work shows a potassium level of 3.4 with a sodium of 140. Reevaluated today on 03/25/2021, patient was transferred to the ICU this morning, she was placed on 100% FiO2, and BiPAP, and her O2 saturations remained marginal. I evaluated the patient in the ICU, and she was made aware that her condition seems to be worsening and she will likely end up requiring intubation and mechanical ventilation. An hour later, the patient decompensated, and she required to be intubated and mechanically ventilated. Patient was placed initially on 100% FiO2, EPAP of 12, tidal volume is 400, rate of 30. ABG is pending. Her d-dimer is 34. The left lites are normal LDH 879 C-reactive protein 15.6. CT angiogram few days ago showed no evidence of pulmonary embo lism. Venous Doppler negative for DVT Reevaluated today on 03/26/2021, patient remains in the ICU, intubated and mechanically ventilated. Patient is on assist control rate of 3 to tidal volume 400 FiO2 80%, PEEP of 14. Changes were made including tidal volume decreased to 375 FiO2 decreased to 70% PEEP increased to 16. Rate remained the same at 32. Patient is on propofol at 50 fentanyl at 0.5 Nimbex at 1.5. She is also on enteral feeding. She is hemodynamically stable, not requiring any pressors. Chest x-ray continues to show bilateral interstitial infiltrates consistent with COVID-19 pneumonia. Patient had negative workup for pulmonary embolism and negative workup for venous Doppler upon admission. ABG today showed a pO2 of 106 pCO2 of 40 pH of 7.39. Her CBC is relatively normal electrolytes are normal renal profile is normal. Reevaluated today on 03/27/2021, remains in the ICU intubated and mechanically ventilated. She is presently on assist control rate of 3 to tidal volume 375 PEEP is 16, FiO2 60%. ABG showed a pO2 of 67 pCO2 44 pH of 7.30. Hence I cut down her FiO2 to 55%. Patient remains on propofol at 40 mcg/kg/m norepinephrine at 0.05 mcg/kg/m Nimbex at 1.5 mcg/kg/ minute, and fentanyl 0.5 mcg/kg/h. Patient remains sedated and paralyzed, her ABG this morning showed a pO2 of 67 pCO2 of 44 pH of 7.30, FiO2 decreased to 55%. However as I was dictating this note, I was notified by the nurse that she developed subcu emphysema, and I'm recommending a stat chest x-ray, to determine if the patient has a new onset normal mediastinum or possibly a pneumothorax. Chest x-ray is pending at the time of this dictation. A shunt remains on enteral feedings. She is requiring a small dose of norepinephrine for hemodynamic instability. Reevaluated today on 03/28/2021, patient remains in the ICU, intubated and mechanically ventilated. Patient is on assist control rate of 32 volume of 375 FiO2 50% PEEP of 16. ABG showed a pO2 of 67 pCO2 of 49 pH of 7.30. Patient is on IV fluid at 1 20 mL/h, up a fall 45 mcg/kg/m, Nimbex at 1.5 mcg/kg/m, fentanyl 0.5 mcg/kg/h, she is off norepinephrine. CBC showed WBC count of 11.8 hemoglobin is 12.2. Hematocrit is 39.4. Electrolytes are normal renal profile is normal. Chest x-ray continues to show bilateral infiltrates, and there is evidence of pneumomediastinum and subcutaneous emphysema. Patient remains on th e COVID-19 cocktail, she is on echo from 6 mg IV push daily she is also on Lovenox 40 mg subcu twice a day. Patient is also receiving baricitinib . Patient is also on enteral feedings. Objective - Vital Signs Vital signs: Vital Signs Temp 98.2 F 03/28/21 12:00 Pulse 74 03/28/21 13:00 Resp 32 H 03/28/21 13:00 BP 102/65 03/28/21 13:00 Pulse Ox 97 03/28/21 13:00 Intake & Output 03/27/21 03/28/21 03/28/21 18:59 06:59 18:59 Intake Total 9559.113 1414.382 1145 Output Total 530 500 350 Balance 3533.628 2993.382 795 Weight 83.2 kg Intake: IV 1476 1476 861 Sodium Chloride 0.9% 1, 1440 1440 840 000 ml @ 120 mls/hr IV . Q8H20M [facility] Rx#:[id number] pressure bag 36 36 21 Intake, IV Titration 116.660 423.382 Amount Cisatracurium 200 mg In 180.138 Sodium Chloride 0.9% 180 ml @ 1 MCG/KG/MIN 4.218 mls/hr IV .Q24H [facility] Rx#: [id number] Norepinephrine 32 mg In 3.565 14.679 Sodium Chloride 0.9% 218 ml @ 0.05 MCG/KG/MIN 1. 828 mls/hr IV .Q24H [facility] Rx#:[id number] fentaNYL (PF). 1,000 mcg 13.095 54.157 In Sodium Chloride 0.9% 80 ml @ 0.5 MCG/KG/HR 3. 515 mls/hr IV .Q24H [facility] Rx#:[id number] propofoL 1,000 mg In 100.000 174.408 Empty Bag 1 bag @ Titrate IV .Q0M [facility] Rx#: [id number] Tube Feeding 388 384 224 Other 90 60 Output: Urine 530 500 350 Other: Voiding Method Indwelling Catheter Indwelling Catheter ABP, PAP, CO, CI - Last Documented Arterial Blood Pressure 95/57 - Exam General appearance: Revealed a 65-year-old female intubated and mechanically ventilated. Head exam: Atraumatic, normocephalic. Endotracheal tube and orogastric tube are intact Eye exam: PERRLA, EOMI, anicteric, no neck masses no JVD, no stridor. ENT exam:normal exam, mucous membranes moist Neck exam: Short obese neck, otherwise normal inspection Respiratory exam: Symmetrical chest expansion, crackles at the bases bilaterally. Cardiovascular Exam: Synthesizer, no S3 gallop. Extremities exam: No clubbing about 1+ bipedal edema , no cyanosis. Neurological exam: Could not assess, patient is sedated on mechanical ventilation. Psychiatric exam: Could not be assessed, patient is sedated and mechanically ventilated. Skin exam: No rashes. - Labs CBC & Chem 7: 03/28/21 03:55 03/28/21 03:55 Labs: Abnormal Lab Results - Last 24 Hours (Table) 03/27/21 03/27/21 03/28/21 Range/Units 16:56 23:55 03:55 WBC 11.8 H (3.8-10.6) k/uL Neutrophils # 10.3 H (1.3-7.7) k/uL Lymphocytes # 0.8 L (1.0-4.8) k/uL ABG pH (7.35-7.45) ABG pCO2 (35-45) mmHg ABG pO2 (83-108) mmHg ABG Total CO2 (19-24) mmol/L ABG O2 Saturation (94-97) % Chloride (98-107) mmol/L BUN (7-17) mg/dL Glucose (74-99) mg/dL POC Glucose (mg/dL) 292 H 274 H (75-99) mg/dL Calcium (8.4-10.2) mg/dL ALT (4-34) U/L Total Protein (6.3-8.2) g/dL Albumin (3.5-5.0) g/dL 03/28/21 03/28/21 03/28/21 Range/Units 03:55 05:34 05:51 WBC (3.8-10.6) k/uL Neutrophils # (1.3-7.7) k/uL Lymphocytes # (1.0-4.8) k/uL ABG pH 7.30 L (7.35-7.45) ABG pCO2 49 H (35-45) mmHg ABG pO2 67 L (83-108) mmHg ABG Total CO2 25 H (19-24) mmol/L ABG O2 Saturation 92.9 L (94-97) % Chloride 112 H (98-107) mmol/L BUN 36 H (7-17) mg/dL Glucose 261 H (74-99) mg/dL POC Glucose (mg/dL) 264 H (75-99) mg/dL Calcium 8.2 L (8.4-10.2) mg/dL ALT 46 H (4-34) U/L Total Protein 5.2 L (6.3-8.2) g/dL Albumin 2.3 L (3.5-5.0) g/dL 03/28/21 Range/Units 13:02 WBC (3.8-10.6) k/uL Neutrophils # (1.3-7.7) k/uL Lymphocytes # (1.0-4.8) k/uL ABG pH (7.35-7.45) ABG pCO2 (35-45) mmHg ABG pO2 (83-108) mmHg ABG Total CO2 (19-24) mmol/L ABG O2 Saturation (94-97) % Chloride (98-107) mmol/L BUN (7-17) mg/dL Glucose (74-99) mg/dL POC Glucose (mg/dL) 241 H (75-99) mg/dL Calcium (8.4-10.2) mg/dL ALT (4-34) U/L Total Protein (6.3-8.2) g/dL Albumin (3.5-5.0) g/dL Assessment and Plan Assessment: Impression: Acute hypoxic respiratory failure secondary to COVID-19 pneumonia, requiring intubation and mechanical ventilation on 03/25/21, patient had symptoms about 11 days prior to presentation, her CT angiogram was negative for pulmonary embolism. And her Doppler was negative for DVT. Hence the patient will remain on Lovenox at 40 mg subcu twice a day. Elevated inflammatory markers and elevated d-dimer secondary to above. Type 2 diabetes. Hypothyroidism. Dyslipidemia. New onset subcu emphysema, and pneumomediastinum secondary to COVID-19 pneumonia and barotrauma. Recommendation: Continue ventilatory support. Nutritional support/enteral feeding GI prophylaxis. Continue Lovenox 40 mg subcu twice a day. Continue baricitinib Continue COVID-19 cocktail. Patient is definitely critically ill. Critical care time is over 30 minutes. Time with Patient: Greater than 30
--- NOTE | 2021-03-28 14:41 | P.PN ---
Subjective Progress Note Date: 03/28/21 This is 65-year-old female with past medical history of diabetes mellitus, hyperlipidemia, hypertension, osteoarthritis, no smoking history presented to the ER with worsening dyspnea 10 days accompanied by loss of appetite, fatigue, cough. Denies fevers or sweats. Denies muscle aches. On admission patient was febrile with temperature 99.1, WBC 5.2, tachycardic, cachectic, maintaining O2 sats of 88% on room air. Patient's respiratory status has further worsened and currently maintaining O2 sats of mid 90s on 3 L nasal cannula. Displays exertional dyspnea after ambulating from BR. Coronavirus PCR positive. D-dimer 0.39, LDH 1108, CRP 18.6. Chest x-ray reporting reticular and some minimal patc hy opacity's over bilateral lower lungs, left greater than right. Hemoglobin 14.5, platelets 287. Sodium currently 132, potassium 5, BUN 27, creatinine 0.77. A.m. Accu-Chek currently being obtained, the blood sugar 231 last night. Denies chest pain, palpitations. 03/20/2021 continues on covid cocktail .oxygen requirements worsened, currently requiring 10 L high flow nasal cannula to maintain O2 sats in the high 80s to low 90s. Reports had coughing spells last night but no cough this morning .exertional shortness of breath .Denies chest pain, palpitations. Afebrile. Ambulatory markers improving with the exception of mild increase in d- dimer.Calcitonin minimally elevated, 0.12. BMP pending. Blood sugars better improving. 03/21/21 maintaining O2 sats in the low 90s on 2 L nasal cannula. Reports minimal nonproductive cough, exertional shortness of breath, loose stools. Blood sugars controlled .Denies chest pain, palpitations. Denies diaphoresis. Afebrile. 03/22/2021 O2 requirements worsened, currently requiring 15 L high flow. Anxious. Current the afebrile, T-max 99.8, labs pending. Yesterday consuming 50-75% of diet. This morning some hypoglycemia, currently 85. Hemoglobin A1c 6.5 03/25/2021 respiratory status worsened .BiPAP at 100%, maintaining O2 sats of m id 80s, transferred to ICU. Anxious. Precedex initiated. Labs pending. 03/26/21 remains vent dependent with FiO2 70/+14 of PEEP. Maintained on diprovan, fentanyl and Pneumovax. Afebrile, normal WBC. Chest x-ray reporting diffuse interstitial pattern of bilateral infiltrates and pleural effusion. 03/27/2021 remains vent dependent, FiO2 60%/+16 of PEEP. Chest x-ray reporting diffuse pleural-parenchymal changes.Maintained on Nimbex, Levophed, fentanyl, diprovan. Continues on covid cocktail. 03/28/2021 FiO2 50%/+16 of PEEP. Chest x-ray reporting extensive subcutaneous emphysema with no change in bibasilar opacities. Levophed weaned off. Maintained on diprovan, Nimbex, fentanyl drips. Covid cocktail. Afebrile, T-max 99.9, WBC 11.8. BUN 36, creatinine 0.58. Blood sugars in the 200s. Objective - Vital Signs Vital signs: Vital Signs Temp 98.8 F 03/28/21 04:00 Pulse 105 H 03/28/21 07:00 Resp 25 H 03/28/21 07:00 BP 156/104 03/28/21 07:00 Pulse Ox 91 L 03/28/21 07:00 Intake & Output 03/27/21 03/28/21 03/28/21 18:59 06:59 18:59 Intake Total 6434.730 9500.244 155 Output Total 530 500 30 Balance 1270.797 7211.244 125 Weight 83.2 kg Intake: IV 1476 1476 123 Sodium Chloride 0.9% 1, 1440 1440 120 000 ml @ 120 mls/hr IV . Q8H20M [facility] Rx#:[id number] pressure bag 36 36 3 Intake, IV Titration 116.660 243.244 Amount Norepinephrine 32 mg In 3.565 14.679 Sodium Chloride 0.9% 218 ml @ 0.05 MCG/KG/MIN 1. 828 mls/hr IV .Q24H [facility] Rx#:[id number] fentaNYL (PF). 1,000 mcg 13.095 54.157 In Sodium Chloride 0.9% 80 ml @ 0.5 MCG/KG/HR 3. 515 mls/hr IV .Q24H [facility] Rx#:[id number] propofoL 1,000 mg In 100.000 174.408 Empty Bag 1 bag @ Titrate IV .Q0M [facility] Rx#: [id number] Tube Feeding 388 384 32 Other 90 Output: Urine 530 500 30 Other: Voiding Method Indwelling Catheter Indwelling Catheter ABP, PAP, CO, CI - Last Documented Arterial Blood Pressure 169/80 - Exam Limited PHYSICAL EXAM on a intubated covid patient: VITAL SIGNS: As above GENERAL: Maintained on mechanical ventilator, sedated and on paralytics CARDIOVASCULAR: S1, S2 regular. Telemetry sinus rhythm ABD: Nondistended NERVOUS SYSTEM: Unable to evaluate, patient sedated and on paralytics - Labs CBC & Chem 7: 03/28/21 03:55 03/28/21 03:55 Labs: Abnormal Lab Results - Last 24 Hours (Table) 03/27/21 03/27/21 03/28/21 Range/Units 16:56 23:55 03:55 WBC 11.8 H (3.8-10.6) k/uL Neutrophils # 10.3 H (1.3-7.7) k/uL Lymphocytes # 0.8 L (1.0-4.8) k/uL ABG pH (7.35-7.45) ABG pCO2 (35-45) mmHg ABG pO2 (83-108) mmHg ABG Total CO2 (19-24) mmol/L ABG O2 Saturation (94-97) % Chloride (98-107) mmol/L BUN (7-17) mg/dL Glucose (74-99) mg/dL POC Glucose (mg/dL) 292 H 274 H (75-99) mg/dL Calcium (8.4-10.2) mg/dL ALT (4-34) U/L Total Protein (6.3-8.2) g/dL Albumin (3.5-5.0) g/dL 03/28/21 03/28/21 03/28/21 Range/Units 03:55 05:34 05:51 WBC (3.8-10.6) k/uL Neutrophils # (1.3-7.7) k/uL Lymphocytes # (1.0-4.8) k/uL ABG pH 7.30 L (7.35-7.45) ABG pCO2 49 H (35-45) mmHg ABG pO2 67 L (83-108) mmHg ABG Total CO2 25 H (19-24) mmol/L ABG O2 Saturation 92.9 L (94-97) % Chloride 112 H (98-107) mmol/L BUN 36 H (7-17) mg/dL Glucose 261 H (74-99) mg/dL POC Glucose (mg/dL) 264 H (75-99) mg/dL Calcium 8.2 L (8.4-10.2) mg/dL ALT 46 H (4-34) U/L Total Protein 5.2 L (6.3-8.2) g/dL Albumin 2.3 L (3.5-5.0) g/dL Assessment and Plan Assessment: Acute COVID-19 pneumonia Acute hypoxic respiratory failure secondary to the above, worsening on BiPAP Hyponatremia, mild, resolved Diabetes mellitus, hyperglycemic hemoglobin A1c 6.5, in addition to steroid contribution Hypothyroidism Hyperlipidemia Plan: Continue on current medication regime ,monitoring and symptomatic treatment. Covid cocktail. Low-dose Lantus added to med regime in addition to sliding scale with close monitoring of Accu-Cheks. 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 The impression and plan of care has been dictated as directed. : I performed a history and examination of this patient, discussed the same with the dictator. I agree with the dictator's note ,documented as a scribe. Any additional findings or plans will be noted.
[2021-03-28 19:00] LABS: Glucose,Whole Blood 273 mg/dL (75-99)
[2021-03-28] MEDS: INSULIN DETEMIR (LEVEMIR) 100 UNIT/ML SYR SQ SCH (19:13)
[2021-03-28] MEDS: ATORVASTATIN 40 MG TAB PO SCH (20:50)
[2021-03-28] MEDS: lisinopriL 10 MG TAB PO SCH (21:56)
[2021-03-28 23:30] LABS: Glucose,Whole Blood 270 mg/dL (75-99)
[2021-03-28] MEDS: CLEVIDIPINE BUTYRATE 25 MG in EMPTY BAG 1 BAG IV PRN (23:40)
[2021-03-29 03:48] LABS: HCT 36.8 % (34.0-46.0); Hypochromasia Slight; MCH 31.4 pg (25.0-35.0); MCHC 32.6 g/dL (31.0-37.0); MCV 96.2 fL (80.0-100.0); Mean Platelet Volume 7.8; Platelet Count 401 k/uL (150-450); RBC 3.83 m/uL (3.80-5.40); WBC 16.5 k/uL (3.8-10.6)
[2021-03-29] MEDS: CLEVIDIPINE BUTYRATE 25 MG in EMPTY BAG 1 BAG IV PRN (03:54)
[2021-03-29 04:01] LABS: ALT 68 U/L (4-34); AST 57 U/L (14-36); African American GFR (CKD) >90 (>60 ml/min/1.73 sqM); Albumin 2.5 g/dL (3.5-5.0); Alkaline Phosphatase 170 U/L (38-126); Anion Gap 6 mmol/L; Blood Urea Nitrogen 33 mg/dL (7-17); Calcium 8.1 mg/dL (8.4-10.2); Carbon Dioxide 24 mmol/L (22-30); Chloride 109 mmol/L (98-107); Glucose 262 mg/dL (74-99); Non-African American GFR(CKD) >90 (>60 ml/min/1.73 sqM); Sodium 139 mmol/L (137-145); Total Bilirubin 0.2 mg/dL (0.2-1.3); Total Protein 5.4 g/dL (6.3-8.2)
[2021-03-29 05:38] LABS: ABG Base Excess -0.1 mmol/L; ABG HCO3 26 mmol/L (21-25); ABG Oxygen Saturation 93.7 % (94-97); ABG PCO2 49 mmHg (35-45); ABG PH 7.33 (7.35-7.45); ABG PO2 70 mmHg (83-108); ABG TCO2 27 mmol/L (19-24); Allen Test Performed? Yes
[2021-03-29] MEDS: LEVOTHYROXINE 75 MCG TAB PO SCH (06:28)
[2021-03-29 06:36] LABS: Glucose,Whole Blood 216 mg/dL (75-99)
[2021-03-29] MEDS: INSULIN ASPART (NovoLOG) 100 UNIT/ML VIAL SQ SCH ×3 (06:38→18:25)
[2021-03-29] MEDS: INSULIN DETEMIR (LEVEMIR) 100 UNIT/ML SYR SQ SCH (06:39)
[2021-03-29] MEDS: CHOLECALCIFEROL 25 MCG (1000 IU) TABLET PO SCH (08:18)
[2021-03-29] MEDS: BARICITINIB 2 MG TABLET PO SCH (08:18)
[2021-03-29] MEDS: DEXAMETHASONE SOD PHOSPHATE 10 MG/ML 1 ML VIAL IVP SCH (08:18)
[2021-03-29] MEDS: ZINC SULFATE 220 MG CAP PO SCH (08:19)
[2021-03-29] MEDS: PANTOPRAZOLE 40 MG/10 ML VIAL IVP SCH (08:19)
[2021-03-29] MEDS: ASCORBIC ACID 500 MG TAB PO SCH (08:19)
[2021-03-29] MEDS: CHLORHEXIDINE GLUCONATE 15 ML CUP MUCOUS MEM SCH ×2 (08:19→20:11)
[2021-03-29] MEDS: ENOXAPARIN 40 MG/0.4 ML SYRINGE SQ SCH ×2 (08:19→20:11)
[2021-03-29] MEDS: SODIUM CHLORIDE 0.9% 1,000 ML IV SCH ×2 (08:25→17:29)
[2021-03-29] MEDS: NOREPINEPHRINE 32 MG in SODIUM CHLORIDE 0.9% 218 ML IV SCH (08:26)
[2021-03-29] MEDS: ARTIFICIAL TEARS-HYPROMELLOSE DROPS 15 ML BTL BOTH EYES SCH ×4 (08:26→20:12)
[2021-03-29] MEDS: ALBUTEROL HFA INHALER INHALATION SCH ×4 (10:03→20:52)
[2021-03-29 11:37] LABS: Glucose,Whole Blood 254 mg/dL (75-99)
--- NOTE | 2021-03-29 13:34 | P.PN ---
Subjective Progress Note Date: 03/29/21 Principal diagnosis: Acute hypoxic respiratory failure secondary to COVID-19 pneumonia 03/24/2021, the patient is having more difficulty in breathing. This morning, the patient started having worsening shortness of breath and worsening and hypoxemia. The patient is currently on BiPAP at a pressure of 14/8 cm of water. He is quite tachypneic. The respiratory rate is around 34 times a minute and her minute ventilation is above 24 L per minute. She is quite tachypneic and short of breath and she is also tachycardic. Note that, the patient's condition was gradually getting worse over the past several days. The patient was on 9 L of oxygen by nasal cannula and there was progressive rise in her oxygen requirements and she was brought up to 15 L and later on to 100% nonrebreather facemask and currently she is on a BiPAP. At the same time, the patient is being treated with a combination of Decadron and Baricitinib per protocol. She is on Lovenox for DVT prophylaxis 40 mg subcu daily basis. This is consistent with COVID 19 related pneumonia. While on the BiPAP, she underwent a blood gas that showed a pH of 7.46 with a pCO2 of 37 and pO2 of 50. Subsequently, her oxygen saturations improved. Her d-dimer from yesterday was more than 34. Her CRP level was 14 and her LDH level was 657. Rest of the blood work shows a potassium level of 3.4 with a sodium of 140. Reevaluated today on 03/25/2021, patient was transferred to the ICU this morning, she was placed on 100% FiO2, and BiPAP, and her O2 saturations remained marginal. I evaluated the patient in the ICU, and she was made aware that her condition seems to be worsening and she will likely end up requiring intubation and mechanical ventilation. An hour later, the patient decompensated, and she required to be intubated and mechanically ventilated. Patient was placed initially on 100% FiO2, EPAP of 12, tidal volume is 400, rate of 30. ABG is pending. Her d-dimer is 34. The left lites are normal LDH 879 C-reactive protein 15.6. CT angiogram few days ago showed no evidence of pulmonary embo lism. Venous Doppler negative for DVT Reevaluated today on 03/26/2021, patient remains in the ICU, intubated and mechanically ventilated. Patient is on assist control rate of 3 to tidal volume 400 FiO2 80%, PEEP of 14. Changes were made including tidal volume decreased to 375 FiO2 decreased to 70% PEEP increased to 16. Rate remained the same at 32. Patient is on propofol at 50 fentanyl at 0.5 Nimbex at 1.5. She is also on enteral feeding. She is hemodynamically stable, not requiring any pressors. Chest x-ray continues to show bilateral interstitial infiltrates consistent with COVID-19 pneumonia. Patient had negative workup for pulmonary embolism and negative workup for venous Doppler upon admission. ABG today showed a pO2 of 106 pCO2 of 40 pH of 7.39. Her CBC is relatively normal electrolytes are normal renal profile is normal. Reevaluated today on 03/27/2021, remains in the ICU intubated and mechanically ventilated. She is presently on assist control rate of 3 to tidal volume 375 PEEP is 16, FiO2 60%. ABG showed a pO2 of 67 pCO2 44 pH of 7.30. Hence I cut down her FiO2 to 55%. Patient remains on propofol at 40 mcg/kg/m norepinephrine at 0.05 mcg/kg/m Nimbex at 1.5 mcg/kg/ minute, and fentanyl 0.5 mcg/kg/h. Patient remains sedated and paralyzed, her ABG this morning showed a pO2 of 67 pCO2 of 44 pH of 7.30, FiO2 decreased to 55%. However as I was dictating this note, I was notified by the nurse that she developed subcu emphysema, and I'm recommending a stat chest x-ray, to determine if the patient has a new onset normal mediastinum or possibly a pneumothorax. Chest x-ray is pending at the time of this dictation. A shunt remains on enteral feedings. She is requiring a small dose of norepinephrine for hemodynamic instability. Reevaluated today on 03/28/2021, patient remains in the ICU, intubated and mechanically ventilated. Patient is on assist control rate of 32 volume of 375 FiO2 50% PEEP of 16. ABG showed a pO2 of 67 pCO2 of 49 pH of 7.30. Patient is on IV fluid at 1 20 mL/h, up a fall 45 mcg/kg/m, Nimbex at 1.5 mcg/kg/m, fentanyl 0.5 mcg/kg/h, she is off norepinephrine. CBC showed WBC count of 11.8 hemoglobin is 12.2. Hematocrit is 39.4. Electrolytes are normal renal profile is normal. Chest x-ray continues to show bilateral infiltrates, and there is evidence of pneumomediastinum and subcutaneous emphysema. Patient remains on th e COVID-19 cocktail, she is on echo from 6 mg IV push daily she is also on Lovenox 40 mg subcu twice a day. Patient is also receiving baricitinib . Patient is also on enteral feedings. Reevaluated today on 03/29/2021, remains in the ICU, intubated and mechanically ventilated. Patient is on assist control rate of 32, FiO2 of 50% tidal volume of 375 PEEP 16, decreased down to 14 today. And increase her FiO2 to 55%. ABG showed a pO2 of 70 pCO2 49 pH of 7.33 WBC count is 16.5 hemoglobin is 12 electrolytes are normal renal profile is normal. Patient is on multiple drips including IV fluid at 120 mL/h and I cut it down to KVO she is on enteral feeding via orogastric tube. Nimbex 2 mcg/kg/m propofol 60 mcg/kg/m fentanyl 0.75 mcg/kg/h. Patient is now off norepinephrine. Chest x-ray continues to show bilateral infiltrates, and worsening subcu emphysema, hence I went ahead and placed 3 different 14-Algerian catheters, one placed in the left supraclavicular area, one in the right supraclavicular area, and one in the anterior chest wall on the left side. Mostly to decompressive subcutaneous emphysema. These were placed uneventfully, and place and a sterile field. And covered with dressing. Patient is on the COVID-19 cocktail. She is also on baricitinib Decadron 6 mg IV push daily, Lovenox 40 mg subcu twice a day, she is also on Protonix 40 mg IV push daily and zinc. Objective - Vital Signs Vital signs: Vital Signs Temp 98.2 F 03/29/21 08:00 Pulse 81 03/29/21 11:00 Resp 32 H 03/29/21 11:00 BP 160/86 03/29/21 11:00 Pulse Ox 89 L 03/29/21 11:00 Intake & Output 03/28/21 03/29/21 03/29/21 18:59 06:59 18:59 Intake Total 1926 2373.868 726.871 Output Total 780 625 250 Balance 1146 1748.868 476.871 Weight 84.2 kg 84.2 kg Intake: IV 1416 1478 415 Sodium Chloride 0.9% 1, 1380 1440 400 000 ml @ 120 mls/hr IV . Q8H20M [facility] Rx#:[id number] pressure bag 36 38 15 Intake, IV Titration 100 421.868 153.871 Amount Cisatracurium 200 mg In 99.982 Sodium Chloride 0.9% 180 ml @ 1 MCG/KG/MIN 4.218 mls/hr IV .Q24H [facility] Rx#: [id number] Clevidipine Butyrate 25 35.766 mg In Empty Bag 1 bag @ 1 MG/HR 2 mls/hr IV .Q24H PRN Rx#:[id number] Norepinephrine 32 mg In 1.719 Sodium Chloride 0.9% 218 ml @ 0.05 MCG/KG/MIN 1. 828 mls/hr IV .Q24H [facility] Rx#:[id number] fentaNYL (PF). 1,000 mcg 114.152 24.120 In Sodium Chloride 0.9% 80 ml @ 0.5 MCG/KG/HR 3. 515 mls/hr IV .Q24H [facility] Rx#:[id number] propofoL 1,000 mg In 100 171.968 128.032 Empty Bag 1 bag @ Titrate IV .Q0M [facility] Rx#: [id number] Tube Feeding 320 384 128 Other 90 90 30 Output: Urine 780 625 250 Other: Voiding Method Indwelling Catheter Indwelling Catheter Indwelling Catheter ABP, PAP, CO, CI - Last Documented Arterial Blood Pressure 104/58 - Exam General appearance: Revealed a 65-year-old female intubated and mechanically ventilated. Head exam: Atraumatic, normocephalic. Endotracheal tube and orogastric tube are intact significant subcutaneous emphysema noted in the supraclavicular area, and in the anterior chest wall bilaterally. Eye exam: PERRLA, EOMI, anicteric, no neck masses no JVD, no stridor. Periorbital edema is noted. ENT exam:normal exam, mucous membranes moist Neck exam: Short obese neck, otherwise normal inspection . supraclavicular and subcutaneous emphysema noted. Respiratory exam: Symmetrical chest expansion, crackles at the bases bilaterally. Cardiovascular Exam: Normal S1 and S2, no S3 gallop. Extremities exam: No clubbing about 1+ bipedal edema , no cyanosis. Neurological exam: Could not assess, patient is sedated on mechanical ventilation. Psychiatric exam: Could not be assessed, patient is sedated and mechanically ventilated. Skin exam: No rashes. - Labs CBC & Chem 7: 03/29/21 03:20 03/29/21 03:20 Labs: Abnormal Lab Results - Last 24 Hours (Table) 03/28/21 03/28/21 03/29/21 Range/Units 18:58 23:28 03:20 WBC 16.5 H (3.8-10.6) k/uL ABG pH (7.35-7.45) ABG pCO2 (35-45) mmHg ABG pO2 (83-108) mmHg ABG HCO3 (21-25) mmol/L ABG Total CO2 (19-24) mmol/L ABG O2 Saturation (94-97) % Chloride (98-107) mmol/L BUN (7-17) mg/dL Creatinine (0.52-1.04) mg/dL Glucose (74-99) mg/dL POC Glucose (mg/dL) 273 H 270 H (75-99) mg/dL Calcium (8.4-10.2) mg/dL AST (14-36) U/L ALT (4-34) U/L Alkaline Phosphatase (38-126) U/L Total Protein (6.3-8.2) g/dL Albumin (3.5-5.0) g/dL 03/29/21 03/29/21 03/29/21 Range/Units 03:20 05:35 06:34 WBC (3.8-10.6) k/uL ABG pH 7.33 L (7.35-7.45) ABG pCO2 49 H (35-45) mmHg ABG pO2 70 L (83-108) mmHg ABG HCO3 26 H (21-25) mmol/L ABG Total CO2 27 H (19-24) mmol/L ABG O2 Saturation 93.7 L (94-97) % Chloride 109 H (98-107) mmol/L BUN 33 H (7-17) mg/dL Creatinine 0.51 L (0.52-1.04) mg/dL Glucose 262 H (74-99) mg/dL POC Glucose (mg/dL) 216 H (75-99) mg/dL Calcium 8.1 L (8.4-10.2) mg/dL AST 57 H (14-36) U/L ALT 68 H (4-34) U/L Alkaline Phosphatase 170 H (38-126) U/L Total Protein 5.4 L (6.3-8.2) g/dL Albumin 2.5 L (3.5-5.0) g/dL 03/29/21 Range/Units 11:35 WBC (3.8-10.6) k/uL ABG pH (7.35-7.45) ABG pCO2 (35-45) mmHg ABG pO2 (83-108) mmHg ABG HCO3 (21-25) mmol/L ABG Total CO2 (19-24) mmol/L ABG O2 Saturation (94-97) % Chloride (98-107) mmol/L BUN (7-17) mg/dL Creatinine (0.52-1.04) mg/dL Glucose (74-99) mg/dL POC Glucose (mg/dL) 254 H (75-99) mg/dL Calcium (8.4-10.2) mg/dL AST (14-36) U/L ALT (4-34) U/L Alkaline Phosphatase (38-126) U/L Total Protein (6.3-8.2) g/dL Albumin (3.5-5.0) g/dL Microbiology - Last 24 Hours (Table) 03/28/21 17:15 Gram Stain - Preliminary Sputum Sputum Culture - Preliminary Presumptive Staph aureus Assessment and Plan Assessment: Impression: Acute hypoxic respiratory failure secondary to COVID-19 pneumonia, requiring intubation and mechanical ventilation on 03/25/21, patient had symptoms about 11 days prior to presentation, her CT angiogram was negative for pulmonary embolism. And her Doppler was negative for DVT. Hence the patient will remain on Lovenox at 40 mg subcu twice a day. Elevated inflammatory markers and elevated d-dimer secondary to above. Type 2 diabetes. Hypothyroidism. Dyslipidemia. New onset subcu emphysema, and pneumomediastinum secondary to COVID-19 pneumonia and barotrauma. Status post placement of 3 different 14-Algerian catheters to decompress subcutaneous emphysema in the left supraclavicular area right supraclavicular area, and left anterior chest wall. Recommendation: Continue ventilatory support. She is now on assist control rate of 3 to tell volume 375 FiO2 55% and PEEP 14. Nutritional support/enteral feeding GI prophylaxis. Continue Lovenox 40 mg subcu twice a day. Continue baricitinib Continue COVID-19 cocktail. Patient is definitely critically ill. Prognosis is guarded. And she is not ready for any weaning. Critical care time is over 30 minutes. Time with Patient: Greater than 30
--- NOTE | 2021-03-29 13:41 | XR ---
EXAMINATION TYPE: XR chest 1V portable DATE OF EXAM: 03/29/2021 COMPARISON: Chest x-ray 03/28/2021 HISTORY: Intubated TECHNIQUE: Single frontal view of the chest is obtained. FINDINGS: Endotracheal tube, NG tube are overlying appropriate positions, there is extensive subcuta neous emphysema, suspect pneumomediastinum. Cardiac mediastinal silhouette is unchanged. Bilateral ai rspace disease is present. There is no evident pneumothorax or sizable effusion. IMPRESSION: Findings are similar to prior exam. Correlate for pneumonia
--- NOTE | 2021-03-29 16:52 | P.PN ---
Subjective Progress Note Date: 03/29/21 This is 65-year-old female with past medical history of diabetes mellitus, hyperlipidemia, hypertension, osteoarthritis, no smoking history presented to the ER with worsening dyspnea 10 days accompanied by loss of appetite, fatigue, cough. Denies fevers or sweats. Denies muscle aches. On admission patient was febrile with temperature 99.1, WBC 5.2, tachycardic, cachectic, maintaining O2 sats of 88% on room air. Patient's respiratory status has further worsened and currently maintaining O2 sats of mid 90s on 3 L nasal cannula. Displays exertional dyspnea after ambulating from BR. Coronavirus PCR positive. D-dimer 0.39, LDH 1108, CRP 18.6. Chest x-ray reporting reticular and some minimal patc hy opacity's over bilateral lower lungs, left greater than right. Hemoglobin 14.5, platelets 287. Sodium currently 132, potassium 5, BUN 27, creatinine 0.77. A.m. Accu-Chek currently being obtained, the blood sugar 231 last night. Denies chest pain, palpitations. 03/20/2021 continues on covid cocktail .oxygen requirements worsened, currently requiring 10 L high flow nasal cannula to maintain O2 sats in the high 80s to low 90s. Reports had coughing spells last night but no cough this morning .exertional shortness of breath .Denies chest pain, palpitations. Afebrile. Ambulatory markers improving with the exception of mild increase in d- dimer.Calcitonin minimally elevated, 0.12. BMP pending. Blood sugars better improving. 03/21/21 maintaining O2 sats in the low 90s on 2 L nasal cannula. Reports minimal nonproductive cough, exertional shortness of breath, loose stools. Blood sugars controlled .Denies chest pain, palpitations. Denies diaphoresis. Afebrile. 03/22/2021 O2 requirements worsened, currently requiring 15 L high flow. Anxious. Current the afebrile, T-max 99.8, labs pending. Yesterday consuming 50-75% of diet. This morning some hypoglycemia, currently 85. Hemoglobin A1c 6.5 03/25/2021 respiratory status worsened .BiPAP at 100%, maintaining O2 sats of m id 80s, transferred to ICU. Anxious. Precedex initiated. Labs pending. 03/26/21 remains vent dependent with FiO2 70/+14 of PEEP. Maintained on diprovan, fentanyl and Pneumovax. Afebrile, normal WBC. Chest x-ray reporting diffuse interstitial pattern of bilateral infiltrates and pleural effusion. 03/27/2021 remains vent dependent, FiO2 60%/+16 of PEEP. Chest x-ray reporting diffuse pleural-parenchymal changes.Maintained on Nimbex, Levophed, fentanyl, diprovan. Continues on covid cocktail. 03/28/2021 FiO2 50%/+16 of PEEP. Chest x-ray reporting extensive subcutaneous emphysema with no change in bibasilar opacities. Levophed weaned off. Maintained on diprovan, Nimbex, fentanyl drips. Covid cocktail. Afebrile, T-max 99.9, WBC 11.8. BUN 36, creatinine 0.58. Blood sugars in the 200s. 03/29/2021 FiO2 50%/+16 of PEEP. Maintained on Levophed ,Nimbex and fentanyl drips. Chest x-ray reporting continued bilateral infiltrates, worsening subcutaneous emphysema. 3 catheters placed in left anterior chest wall right and left supraclavicular areas for decompression.Afebrile, T-max 99.4. Objective - Vital Signs Vital signs: Vital Signs Temp 98.8 F 03/29/21 14:00 Pulse 62 03/29/21 15:00 Resp 32 H 03/29/21 15:00 BP 106/64 03/29/21 15:00 Pulse Ox 97 03/29/21 15:00 Intake & Output 03/28/21 03/29/21 03/29/21 18:59 06:59 18:59 Intake Total 1926 2373.868 988.871 Output Total 780 625 430 Balance 1146 1748.868 558.871 Weight 84.2 kg 84.2 kg Intake: IV 1416 1478 507 Sodium Chloride 0.9% 1, 1380 1440 480 000 ml @ 120 mls/hr IV . Q8H20M [facility] Rx#:[id number] pressure bag 36 38 27 Intake, IV Titration 100 421.868 153.871 Amount Cisatracurium 200 mg In 99.982 Sodium Chloride 0.9% 180 ml @ 1 MCG/KG/MIN 4.218 mls/hr IV .Q24H [facility] Rx#: [id number] Clevidipine Butyrate 25 35.766 mg In Empty Bag 1 bag @ 1 MG/HR 2 mls/hr IV .Q24H PRN Rx#:[id number] Norepinephrine 32 mg In 1.719 Sodium Chloride 0.9% 218 ml @ 0.05 MCG/KG/MIN 1. 828 mls/hr IV .Q24H [facility] Rx#:[id number] fentaNYL (PF). 1,000 mcg 114.152 24.120 In Sodium Chloride 0.9% 80 ml @ 0.5 MCG/KG/HR 3. 515 mls/hr IV .Q24H [facility] Rx#:[id number] propofoL 1,000 mg In 100 171.968 128.032 Empty Bag 1 bag @ Titrate IV .Q0M [facility] Rx#: [id number] Tube Feeding 320 384 238 Other 90 90 90 Output: Urine 780 625 430 Other: Voiding Method Indwelling Catheter Indwelling Catheter Indwelling Catheter ABP, PAP, CO, CI - Last Documented Arterial Blood Pressure 92/54 - Exam Limited PHYSICAL EXAM on a intubated covid patient: VITAL SIGNS: As above GENERAL: Maintained on mechanical ventilator, sedated and on paralytics CARDIOVASCULAR: S1, S2 regular. Telemetry sinus rhythm ABD: Nondistended NERVOUS SYSTEM: Unable to evaluate, patient sedated and on paralytics - Labs CBC & Chem 7: 03/29/21 03:20 03/29/21 03:20 Labs: Abnormal Lab Results - Last 24 Hours (Table) 03/28/21 03/28/21 03/29/21 Range/Units 18:58 23:28 03:20 WBC 16.5 H (3.8-10.6) k/uL ABG pH (7.35-7.45) ABG pCO2 (35-45) mmHg ABG pO2 (83-108) mmHg ABG HCO3 (21-25) mmol/L ABG Total CO2 (19-24) mmol/L ABG O2 Saturation (94-97) % Chloride (98-107) mmol/L BUN (7-17) mg/dL Creatinine (0.52-1.04) mg/dL Glucose (74-99) mg/dL POC Glucose (mg/dL) 273 H 270 H (75-99) mg/dL Calcium (8.4-10.2) mg/dL AST (14-36) U/L ALT (4-34) U/L Alkaline Phosphatase (38-126) U/L Total Protein (6.3-8.2) g/dL Albumin (3.5-5.0) g/dL 03/29/21 03/29/21 03/29/21 Range/Units 03:20 05:35 06:34 WBC (3.8-10.6) k/uL ABG pH 7.33 L (7.35-7.45) ABG pCO2 49 H (35-45) mmHg ABG pO2 70 L (83-108) mmHg ABG HCO3 26 H (21-25) mmol/L ABG Total CO2 27 H (19-24) mmol/L ABG O2 Saturation 93.7 L (94-97) % Chloride 109 H (98-107) mmol/L BUN 33 H (7-17) mg/dL Creatinine 0.51 L (0.52-1.04) mg/dL Glucose 262 H (74-99) mg/dL POC Glucose (mg/dL) 216 H (75-99) mg/dL Calcium 8.1 L (8.4-10.2) mg/dL AST 57 H (14-36) U/L ALT 68 H (4-34) U/L Alkaline Phosphatase 170 H (38-126) U/L Total Protein 5.4 L (6.3-8.2) g/dL Albumin 2.5 L (3.5-5.0) g/dL 03/29/21 Range/Units 11:35 WBC (3.8-10.6) k/uL ABG pH (7.35-7.45) ABG pCO2 (35-45) mmHg ABG pO2 (83-108) mmHg ABG HCO3 (21-25) mmol/L ABG Total CO2 (19-24) mmol/L ABG O2 Saturation (94-97) % Chloride (98-107) mmol/L BUN (7-17) mg/dL Creatinine (0.52-1.04) mg/dL Glucose (74-99) mg/dL POC Glucose (mg/dL) 254 H (75-99) mg/dL Calcium (8.4-10.2) mg/dL AST (14-36) U/L ALT (4-34) U/L Alkaline Phosphatase (38-126) U/L Total Protein (6.3-8.2) g/dL Albumin (3.5-5.0) g/dL Microbiology - Last 24 Hours (Table) 03/28/21 17:15 Gram Stain - Preliminary Sputum Sputum Culture - Preliminary Presumptive Staph aureus Assessment and Plan Assessment: Acute COVID-19 pneumonia Acute hypoxic respiratory failure secondary to the above, mechanical vent dependent Subcutaneous emphysema and pneumomediastinum secondary to Covid., Status post 3 decompression catheters placed. Hyponatremia, mild, resolved Diabetes mellitus, hyperglycemic hemoglobin A1c 6.5, in addition to steroid contribution Hypothyroidism Hyperlipidemia Plan: Continue on current medication regime ,monitoring and symptomatic liban atment. Covid cocktail,Baricitinib. ICU management as per land surveyor.Prognosis guarded given multiple complex medical issues. The impression and plan of care has been dictated as directed. : I performed a history and examination of this patient, discussed the same with the dictator. I agree with the dictator's note ,documented as a scribe. Any additional findings or plans will be noted.
[2021-03-29 17:51] LABS: Glucose,Whole Blood 188 mg/dL (75-99)
[2021-03-29] MEDS: fentaNYL (PF). 1,000 MCG in SODIUM CHLORIDE 0.9% 80 ML IV SCH ×2 (18:29→21:34)
[2021-03-29] MEDS ORDERED: VANCOMYCIN IV PER PHARMACY 1 EACH MISC MISCELLANE PRN (19:43)
[2021-03-29] MEDS: ATORVASTATIN 40 MG TAB PO SCH (20:11)
[2021-03-29] MEDS: lisinopriL 10 MG TAB PO SCH (20:12)
[2021-03-29] MEDS ORDERED: VANCOMYCIN 1,750 MG in SODIUM CHLORIDE 0.9% 500 ML 500 ML IVPB ONE (21:00)
[2021-03-29] MEDS: CISATRACURIUM 200 MG in SODIUM CHLORIDE 0.9% 180 ML IV SCH (23:00)
[2021-03-30 00:40] LABS: Glucose,Whole Blood 144 mg/dL (75-99)
[2021-03-30] MEDS: INSULIN ASPART (NovoLOG) 100 UNIT/ML VIAL SQ SCH ×4 (00:55→18:13)
[2021-03-30] MEDS: SODIUM CHLORIDE 0.9% 1,000 ML IV SCH ×2 (01:51→10:32)
[2021-03-30 05:20] LABS: Basophils % (A) 0 %; Eosinophils # (A) 0.2 k/uL (0-0.7); Eosinophils % (A) 1 %; HGB 10.9 gm/dL (11.4-16.0); Lymphocytes # (A) 1.6 k/uL (1.0-4.8); Lymphocytes % (A) 12 %; MCH 31.1 pg (25.0-35.0); Mean Platelet Volume 7.7; Monocytes # (A) 0.3 k/uL (0-1.0); Monocytes % (A) 2 %; Neutrophils # (A) 11.4 k/uL (1.3-7.7); Neutrophils % (A) 83 %; Platelet Count 453 k/uL (150-450); RBC 3.51 m/uL (3.80-5.40); RDW 14.9 % (11.5-15.5); WBC 13.8 k/uL (3.8-10.6)
[2021-03-30 05:31] LABS: ALT 76 U/L (4-34); AST 55 U/L (14-36); African American GFR (CKD) >90 (>60 ml/min/1.73 sqM); Alkaline Phosphatase 152 U/L (38-126); Anion Gap 1 mmol/L; Blood Urea Nitrogen 32 mg/dL (7-17); Calcium 7.8 mg/dL (8.4-10.2); Carbon Dioxide 26 mmol/L (22-30); Chloride 112 mmol/L (98-107); Glucose 182 mg/dL (74-99); Non-African American GFR(CKD) >90 (>60 ml/min/1.73 sqM); Potassium 3.5 mmol/L (3.5-5.1); Sodium 139 mmol/L (137-145); Total Bilirubin 0.2 mg/dL (0.2-1.3); Total Protein 4.5 g/dL (6.3-8.2)
[2021-03-30 06:04] LABS: ABG Base Excess 2.5 mmol/L; ABG HCO3 27 mmol/L (21-25); ABG Oxygen Saturation 92.1 % (94-97); ABG PCO2 39 mmHg (35-45); ABG PH 7.44 (7.35-7.45); ABG TCO2 28 mmol/L (19-24)
[2021-03-30 06:12] LABS: ABG PO2 59 mmHg (83-108); Allen Test Performed? No
[2021-03-30] MEDS: VANCOMYCIN 1,500 MG in SODIUM CHLORIDE 0.9% 250 ML IVPB SCH ×3 (06:16→21:51)
[2021-03-30] MEDS: fentaNYL (PF). 1,000 MCG in SODIUM CHLORIDE 0.9% 80 ML IV SCH ×4 (06:29→23:35)
[2021-03-30] MEDS: LEVOTHYROXINE 75 MCG TAB PO SCH (06:46)
[2021-03-30] MEDS: ALBUTEROL HFA INHALER INHALATION SCH ×4 (07:17→21:43)
--- NOTE | 2021-03-30 07:28 | XR ---
EXAMINATION TYPE: XR chest 1V portable DATE OF EXAM: 03/30/2021 COMPARISON: Chest x-ray 03/29/2021 HISTORY: Intubated TECHNIQUE: Single frontal view of the chest is obtained. FINDINGS: Endotracheal tube, NG tube, left subclavian central venous catheter are overlying appropri ate positions. There is extensive subcutaneous emphysema, pneumomediastinum again noted. No evident p neumothorax or pleural effusion. Bilateral airspace disease is again seen. Cardiac mediastinal silhou ette within normal limits. There are overlying artifacts. IMPRESSION: Correlate for pneumonia, ARDS
[2021-03-30] MEDS: POTASSIUM CHLORIDE 20 MEQ in WATER FOR INJECTION 1 100ML.BAG IVPB SCH ×2 (10:26→12:00)
[2021-03-30] MEDS: ARTIFICIAL TEARS-HYPROMELLOSE DROPS 15 ML BTL BOTH EYES SCH ×4 (10:26→20:02)
[2021-03-30] MEDS: ZINC SULFATE 220 MG CAP PO SCH (10:27)
[2021-03-30] MEDS: INSULIN DETEMIR (LEVEMIR) 100 UNIT/ML SYR SQ SCH (10:27)
[2021-03-30] MEDS: PANTOPRAZOLE 40 MG/10 ML VIAL IVP SCH (10:27)
[2021-03-30] MEDS: CHOLECALCIFEROL 25 MCG (1000 IU) TABLET PO SCH (10:27)
[2021-03-30] MEDS: CHLORHEXIDINE GLUCONATE 15 ML CUP MUCOUS MEM SCH ×2 (10:27→20:02)
[2021-03-30] MEDS: DEXAMETHASONE SOD PHOSPHATE 10 MG/ML 1 ML VIAL IVP SCH (10:28)
[2021-03-30] MEDS: ENOXAPARIN 40 MG/0.4 ML SYRINGE SQ SCH ×2 (10:28→20:02)
[2021-03-30] MEDS: ASCORBIC ACID 500 MG TAB PO SCH (10:28)
[2021-03-30] MEDS: NOREPINEPHRINE 32 MG in SODIUM CHLORIDE 0.9% 218 ML IV SCH (10:29)
[2021-03-30 12:04] LABS: Glucose,Whole Blood 159 mg/dL (75-99)
--- NOTE | 2021-03-30 12:51 | P.PN ---
Subjective Progress Note Date: 03/30/21 Principal diagnosis: Acute hypoxic respiratory failure secondary to COVID-19 pneumonia 03/24/2021, the patient is having more difficulty in breathing. This morning, the patient started having worsening shortness of breath and worsening and hypoxemia. The patient is currently on BiPAP at a pressure of 14/8 cm of water. He is quite tachypneic. The respiratory rate is around 34 times a minute and her minute ventilation is above 24 L per minute. She is quite tachypneic and short of breath and she is also tachycardic. Note that, the patient's condition was gradually getting worse over the past several days. The patient was on 9 L of oxygen by nasal cannula and there was progressive rise in her oxygen requirements and she was brought up to 15 L and later on to 100% nonrebreather facemask and currently she is on a BiPAP. At the same time, the patient is being treated with a combination of Decadron and Baricitinib per protocol. She is on Lovenox for DVT prophylaxis 40 mg subcu daily basis. This is consistent with COVID 19 related pneumonia. While on the BiPAP, she underwent a blood gas that showed a pH of 7.46 with a pCO2 of 37 and pO2 of 50. Subsequently, her oxygen saturations improved. Her d-dimer from yesterday was more than 34. Her CRP level was 14 and her LDH level was 657. Rest of the blood work shows a potassium level of 3.4 with a sodium of 140. Reevaluated today on 03/25/2021, patient was transferred to the ICU this morning, she was placed on 100% FiO2, and BiPAP, and her O2 saturations remained marginal. I evaluated the patient in the ICU, and she was made aware that her condition seems to be worsening and she will likely end up requiring intubation and mechanical ventilation. An hour later, the patient decompensated, and she required to be intubated and mechanically ventilated. Patient was placed initially on 100% FiO2, EPAP of 12, tidal volume is 400, rate of 30. ABG is pending. Her d-dimer is 34. The left lites are normal LDH 879 C-reactive protein 15.6. CT angiogram few days ago showed no evidence of pulmonary embo lism. Venous Doppler negative for DVT Reevaluated today on 03/26/2021, patient remains in the ICU, intubated and mechanically ventilated. Patient is on assist control rate of 3 to tidal volume 400 FiO2 80%, PEEP of 14. Changes were made including tidal volume decreased to 375 FiO2 decreased to 70% PEEP increased to 16. Rate remained the same at 32. Patient is on propofol at 50 fentanyl at 0.5 Nimbex at 1.5. She is also on enteral feeding. She is hemodynamically stable, not requiring any pressors. Chest x-ray continues to show bilateral interstitial infiltrates consistent with COVID-19 pneumonia. Patient had negative workup for pulmonary embolism and negative workup for venous Doppler upon admission. ABG today showed a pO2 of 106 pCO2 of 40 pH of 7.39. Her CBC is relatively normal electrolytes are normal renal profile is normal. Reevaluated today on 03/27/2021, remains in the ICU intubated and mechanically ventilated. She is presently on assist control rate of 3 to tidal volume 375 PEEP is 16, FiO2 60%. ABG showed a pO2 of 67 pCO2 44 pH of 7.30. Hence I cut down her FiO2 to 55%. Patient remains on propofol at 40 mcg/kg/m norepinephrine at 0.05 mcg/kg/m Nimbex at 1.5 mcg/kg/ minute, and fentanyl 0.5 mcg/kg/h. Patient remains sedated and paralyzed, her ABG this morning showed a pO2 of 67 pCO2 of 44 pH of 7.30, FiO2 decreased to 55%. However as I was dictating this note, I was notified by the nurse that she developed subcu emphysema, and I'm recommending a stat chest x-ray, to determine if the patient has a new onset normal mediastinum or possibly a pneumothorax. Chest x-ray is pending at the time of this dictation. A shunt remains on enteral feedings. She is requiring a small dose of norepinephrine for hemodynamic instability. Reevaluated today on 03/28/2021, patient remains in the ICU, intubated and mechanically ventilated. Patient is on assist control rate of 32 volume of 375 FiO2 50% PEEP of 16. ABG showed a pO2 of 67 pCO2 of 49 pH of 7.30. Patient is on IV fluid at 1 20 mL/h, up a fall 45 mcg/kg/m, Nimbex at 1.5 mcg/kg/m, fentanyl 0.5 mcg/kg/h, she is off norepinephrine. CBC showed WBC count of 11.8 hemoglobin is 12.2. Hematocrit is 39.4. Electrolytes are normal renal profile is normal. Chest x-ray continues to show bilateral infiltrates, and there is evidence of pneumomediastinum and subcutaneous emphysema. Patient remains on th e COVID-19 cocktail, she is on echo from 6 mg IV push daily she is also on Lovenox 40 mg subcu twice a day. Patient is also receiving baricitinib . Patient is also on enteral feedings. Reevaluated today on 03/29/2021, remains in the ICU, intubated and mechanically ventilated. Patient is on assist control rate of 32, FiO2 of 50% tidal volume of 375 PEEP 16, decreased down to 14 today. And increase her FiO2 to 55%. ABG showed a pO2 of 70 pCO2 49 pH of 7.33 WBC count is 16.5 hemoglobin is 12 electrolytes are normal renal profile is normal. Patient is on multiple drips including IV fluid at 120 mL/h and I cut it down to KVO she is on enteral feeding via orogastric tube. Nimbex 2 mcg/kg/m propofol 60 mcg/kg/m fentanyl 0.75 mcg/kg/h. Patient is now off norepinephrine. Chest x-ray continues to show bilateral infiltrates, and worsening subcu emphysema, hence I went ahead and placed 3 different 14-[place]er catheters, one placed in the left supraclavicular area, one in the right supraclavicular area, and one in the anterior chest wall on the left side. Mostly to decompressive subcutaneous emphysema. These were placed uneventfully, and place and a sterile field. And covered with dressing. Patient is on the COVID-19 cocktail. She is also on baricitinib Decadron 6 mg IV push daily, Lovenox 40 mg subcu twice a day, she is also on Protonix 40 mg IV push daily and zinc. Reevaluated today on 03/30/2021, patient remains in the ICU, intubated and mechanically ventilated. She remains on assist control rate of 32 tidal volume 375 FiO2 60% and I cut it down to 55% PEEP remains at 10. ABG showed a pO2 of 59 pCO2 of 39 pH of 7.44. Chest x-ray showed bilateral infiltrates, persistent subcutaneous emphysema but seems to be less compared to the previous 2 days. No evidence of pneumothorax. Remains on multiple drips including norepinephrine at 0.03 mcg/kg/m, Nimbex at 2 mcg/kg/m, fentanyl at 2.5 mcg/kg/h propofol 50 mcg/kg/m. IV fluid at 20 mL per hour. Patient is on vital AF 26 mL per hour. Chest x-ray again is not showing much of a change. Patient remains on the COVID -19 cocktail including Decadron, Lovenox, Protonix, and she is also on baricitinib Objective - Vital Signs Vital signs: Vital Signs Temp 99.1 F 03/30/21 04:00 Pulse 55 L 03/30/21 07:00 Resp 32 H 03/30/21 07:00 BP 126/74 03/30/21 07:00 Pulse Ox 93 L 03/30/21 07:00 Intake & Output 03/29/21 03/30/21 03/30/21 18:59 06:59 18:59 Intake Total 4819.243 7742.174 191.783 Output Total 560 470 40 Balance 388.854 8692.174 151.783 Weight 84.2 kg 85.5 kg Intake: IV 576 777 23 Sodium Chloride 0.9% 1, 540 240 20 000 ml @ 20 mls/hr IV . Q24H [facility] Rx#:[id number] Vancomycin 1,750 mg In 501 Sodium Chloride 0.9% 500 ml 500 ml @ 167 mls/hr IVPB ONCE ONE Rx#: [id number] pressure bag 36 36 3 Intake, IV Titration 276.338 548.174 168.783 Amount Cisatracurium 200 mg In 149.798 Sodium Chloride 0.9% 180 ml @ 1 MCG/KG/MIN 4.218 mls/hr IV .Q24H [facility] Rx#: [id number] Norepinephrine 32 mg In 1.719 4.374 2.475 Sodium Chloride 0.9% 218 ml @ 0.05 MCG/KG/MIN 1. 828 mls/hr IV .Q24H [facility] Rx#:[id number] fentaNYL (PF). 1,000 mcg 46.587 115.275 77.046 In Sodium Chloride 0.9% 80 ml @ 0.5 MCG/KG/HR 3. 515 mls/hr IV .Q24H [facility] Rx#:[id number] propofoL 1,000 mg In 228.032 278.727 89.262 Empty Bag 1 bag @ Titrate IV .Q0M [facility] Rx#: [id number] Tube Feeding 316 182 Other 150 120 Output: Urine 560 470 40 Other: Voiding Method Indwelling Catheter Indwelling Catheter ABP, PAP, CO, CI - Last Documented Arterial Blood Pressure 124/65 - Exam General appearance: Revealed a 65-year-old female intubated and mechanically ventilated. Head exam: Atraumatic, normocephalic. Endotracheal tube and orogastric tube are intact continue to have subcu emphysema.. Eye exam: PERRLA, EOMI, anicteric, no neck masses no JVD, no stridor. Periorbital edema is noted. ENT exam:normal exam, mucous membranes moist Neck exam: Short obese neck, otherwise normal inspection . supraclavicular and subcutaneous emphysema noted. Respiratory exam: Symmetrical chest expansion, crackles at the bases bilaterally. Cardiovascular Exam: Normal S1 and S2, no S3 gallop Extremities exam: No clubbing about 1+ bipedal edema , no cyanosis. Neurological exam: Could not assess, patient is sedated on mechanical ventilation. Psychiatric exam: Could not be assessed, patient is sedated and mechanically ventilated. Skin exam: No rashes. - Labs CBC & Chem 7: 03/30/21 05:00 03/30/21 05:00 Labs: Abnormal Lab Results - Last 24 Hours (Table) 03/29/21 03/30/21 03/30/21 Range/Units 17:49 00:38 05:00 WBC 13.8 H (3.8-10.6) k/uL RBC 3.51 L (3.80-5.40) m/uL Hgb 10.9 L (11.4-16.0) gm/dL Hct 33.0 L (34.0-46.0) % Plt Count 453 H (150-450) k/uL Neutrophils # 11.4 H (1.3-7.7) k/uL ABG pO2 (83-108) mmHg ABG HCO3 (21-25) mmol/L ABG Total CO2 (19-24) mmol/L ABG O2 Saturation (94-97) % Chloride (98-107) mmol/L BUN (7-17) mg/dL Creatinine (0.52-1.04) mg/dL Glucose (74-99) mg/dL POC Glucose (mg/dL) 188 H 144 H (75-99) mg/dL Calcium (8.4-10.2) mg/dL AST (14-36) U/L ALT (4-34) U/L Alkaline Phosphatase (38-126) U/L Total Protein (6.3-8.2) g/dL Albumin (3.5-5.0) g/dL 03/30/21 03/30/21 03/30/21 Range/Units 05:00 05:39 12:02 WBC (3.8-10.6) k/uL RBC (3.80-5.40) m/uL Hgb (11.4-16.0) gm/dL Hct (34.0-46.0) % Plt Count (150-450) k/uL Neutrophils # (1.3-7.7) k/uL ABG pO2 59 L* (83-108) mmHg ABG HCO3 27 H (21-25) mmol/L ABG Total CO2 28 H (19-24) mmol/L ABG O2 Saturation 92.1 L (94-97) % Chloride 112 H (98-107) mmol/L BUN 32 H (7-17) mg/dL Creatinine 0.46 L (0.52-1.04) mg/dL Glucose 182 H (74-99) mg/dL POC Glucose (mg/dL) 159 H (75-99) mg/dL Calcium 7.8 L (8.4-10.2) mg/dL AST 55 H (14-36) U/L ALT 76 H (4-34) U/L Alkaline Phosphatase 152 H (38-126) U/L Total Protein 4.5 L (6.3-8.2) g/dL Albumin 2.0 L (3.5-5.0) g/dL Microbiology - Last 24 Hours (Table) 03/28/21 17:15 Gram Stain - Final Sputum Sputum Culture - Final Staphylococcus aureus Assessment and Plan Assessment: Impression: Acute hypoxic respiratory failure secondary to COVID-19 pneumonia, requiring intubation and mechanical ventilation on 03/25/21, patient had symptoms about 11 days prior to presentation, her CT angiogram was negative for pulmonary embolism. And her Doppler was negative for DVT. Hence the patient will remain on Lovenox at 40 mg subcu twice a day. Elevated inflammatory markers and elevated d-dimer secondary to above. Type 2 diabetes. Hypothyroidism. Dyslipidemia. New onset subcu emphysema, and pneumomediastinum secondary to COVID-19 pneumonia and barotrauma. Status post placement of 3 different 14-[place] catheters to decompress subcutaneous emphysema in the left supraclavicular area right supraclavicular area, and left anterior chest wall. Recommendation: Continue ventilatory support. Nutritional support/enteral feeding GI prophylaxis. Continue Lovenox 40 mg subcu twice a day. Continue baricitinib Continue COVID-19 cocktail. Remains critically ill. Critical care time is over 30 minutes. Time with Patient: Greater than 30
[2021-03-30] MEDS: CISATRACURIUM 200 MG in SODIUM CHLORIDE 0.9% 180 ML IV SCH (14:44)
[2021-03-30 17:54] LABS: Glucose,Whole Blood 238 mg/dL (75-99)
[2021-03-30] MEDS: ATORVASTATIN 40 MG TAB PO SCH (20:02)
[2021-03-30] MEDS: lisinopriL 10 MG TAB PO SCH (20:02)
[2021-03-30] MEDS: CLEVIDIPINE BUTYRATE 25 MG in EMPTY BAG 1 BAG IV PRN (23:50)
--- NOTE | 2021-03-31 00:01 | P.PN ---
Subjective This is 65-year-old female with past medical history of diabetes mellitus, hyperlipidemia, hypertension, osteoarthritis, no smoking history presented to the ER with worsening dyspnea 10 days Patient found to have bilateral covert pneumonia with secondary hypoxia severe enough to need intubation and mechanical ventilation. With superimposed fatuma terial infection of the lung with sputum culture growing staph and patient is placed on IV vancomycin. Patient has increased inflammatory markers LDH 879, CRP 1-5.6. WBC elevated at 13 K, liver enzymes mildly elevated. Chest x-ray showing bilateral pulmonary infiltrate. Broadcalcitonin elevated 1.5. She remains on Lovenox 40 mg twice a day as Doppler of the lower extremity and CTA of the chest are negative for clots. Also she is Protonix, dexamethasone, vitamin C, D and zinc. Metformin and Amaryl are helped sugar controlled on sliding scale Objective - Vital Signs Vital signs: Vital Signs Temp 99.1 F 03/30/21 04:00 Pulse 55 L 03/30/21 07:00 Resp 32 H 03/30/21 07:00 BP 126/74 03/30/21 07:00 Pulse Ox 93 L 03/30/21 07:00 Intake & Output 03/29/21 03/30/21 03/30/21 18:59 06:59 18:59 Intake Total 2444.924 9460.174 191.783 Output Total 560 470 40 Balance 733.215 8128.174 151.783 Weight 84.2 kg 85.5 kg Intake: IV 576 777 23 Sodium Chloride 0.9% 1, 540 240 20 000 ml @ 20 mls/hr IV . Q24H [facility] Rx#:[id number] Vancomycin 1,750 mg In 501 Sodium Chloride 0.9% 500 ml 500 ml @ 167 mls/hr IVPB ONCE ONE Rx#: [id number] pressure bag 36 36 3 Intake, IV Titration 276.338 548.174 168.783 Amount Cisatracurium 200 mg In 149.798 Sodium Chloride 0.9% 180 ml @ 1 MCG/KG/MIN 4.218 mls/hr IV .Q24H [facility] Rx#: [id number] Norepinephrine 32 mg In 1.719 4.374 2.475 Sodium Chloride 0.9% 218 ml @ 0.05 MCG/KG/MIN 1. 828 mls/hr IV .Q24H [facility] Rx#:[id number] fentaNYL (PF). 1,000 mcg 46.587 115.275 77.046 In Sodium Chloride 0.9% 80 ml @ 0.5 MCG/KG/HR 3. 515 mls/hr IV .Q24H [facility] Rx#:[id number] propofoL 1,000 mg In 228.032 278.727 89.262 Empty Bag 1 bag @ Titrate IV .Q0M [facility] Rx#: [id number] Tube Feeding 316 182 Other 150 120 Output: Urine 560 470 40 Other: Voiding Method Indwelling Catheter Indwelling Catheter ABP, PAP, CO, CI - Last Documented Arterial Blood Pressure 124/65 - Exam -GENERAL: The patient is intubated and sedated HEENT: Pupils are round and equally reacting to light. EOMI. No scleral icterus. No conjunctival pallor. Normocephalic, atraumatic. No pharyngeal erythema. No thyromegaly. CARDIOVASCULAR: S1 and S2 present. No murmurs, rubs, or gallops. -PULMONARY: Chest is clear to auscultation, no wheezing. b/l crepitation ABDOMEN: Soft, nontender, nondistended, normoactive bowel sounds. No palpable organomegaly. MUSCULOSKELETAL: No joint swelling or deformity. EXTREMITIES: No cyanosis, clubbing, or pedal edema. NEUROLOGICAL: Gross neurological examination did not reveal any focal deficits. SKIN: No rashes. no petechiae. - Labs CBC & Chem 7: 03/30/21 05:00 03/30/21 05:00 Labs: Abnormal Lab Results - Last 24 Hours (Table) 03/29/21 03/30/21 03/30/21 Range/Units 17:49 00:38 05:00 WBC 13.8 H (3.8-10.6) k/uL RBC 3.51 L (3.80-5.40) m/uL Hgb 10.9 L (11.4-16.0) gm/dL Hct 33.0 L (34.0-46.0) % Plt Count 453 H (150-450) k/uL Neutrophils # 11.4 H (1.3-7.7) k/uL ABG pO2 (83-108) mmHg ABG HCO3 (21-25) mmol/L ABG Total CO2 (19-24) mmol/L ABG O2 Saturation (94-97) % Chloride (98-107) mmol/L BUN (7-17) mg/dL Creatinine (0.52-1.04) mg/dL Glucose (74-99) mg/dL POC Glucose (mg/dL) 188 H 144 H (75-99) mg/dL Calcium (8.4-10.2) mg/dL AST (14-36) U/L ALT (4-34) U/L Alkaline Phosphatase (38-126) U/L Total Protein (6.3-8.2) g/dL Albumin (3.5-5.0) g/dL 03/30/21 03/30/21 Range/Units 05:00 05:39 WBC (3.8-10.6) k/uL RBC (3.80-5.40) m/uL Hgb (11.4-16.0) gm/dL Hct (34.0-46.0) % Plt Count (150-450) k/uL Neutrophils # (1.3-7.7) k/uL ABG pO2 59 L* (83-108) mmHg ABG HCO3 27 H (21-25) mmol/L ABG Total CO2 28 H (19-24) mmol/L ABG O2 Saturation 92.1 L (94-97) % Chloride 112 H (98-107) mmol/L BUN 32 H (7-17) mg/dL Creatinine 0.46 L (0.52-1.04) mg/dL Glucose 182 H (74-99) mg/dL POC Glucose (mg/dL) (75-99) mg/dL Calcium 7.8 L (8.4-10.2) mg/dL AST 55 H (14-36) U/L ALT 76 H (4-34) U/L Alkaline Phosphatase 152 H (38-126) U/L Total Protein 4.5 L (6.3-8.2) g/dL Albumin 2.0 L (3.5-5.0) g/dL Microbiology - Last 24 Hours (Table) 03/28/21 17:15 Gram Stain - Final Sputum Sputum Culture - Final Staphylococcus aureus Assessment and Plan Assessment: Bilateral Covid pneumonia with bacterial superinfection secondary to staff Acute hypoxic respiratory failure Increased inflammatory markers Diabetes mellitus, type II Hypothyroidism Hyperlipidemia Plan: This is a pleasant 65 years old female who presents with Bilateral Covid pneumonia and hypoxia Continue with vitamin C, vitamin D, and zinc. Continue with dexamethasone Pulmonary team consult Continue with intubation and mechanical ventilation Continue with IV vancomycin Continue with insulin sliding scale and monitor glucose Labs and medication were reviewed.. Continue same treatment. Continue with symptomatic treatment. Resume home medication. Monitor lytes and vitals. DVT and GI prophylaxis. Further recommendations as per clinical course of the patient DVT prophylaxis: Subcutaneous Lovenox GI Prophylaxis: Ppi Prognosis is guarded
[2021-03-31 00:10] LABS: Glucose,Whole Blood 235 mg/dL (75-99)
[2021-03-31] MEDS: INSULIN ASPART (NovoLOG) 100 UNIT/ML VIAL SQ SCH ×4 (00:12→18:56)
[2021-03-31] MEDS: fentaNYL (PF). 1,000 MCG in SODIUM CHLORIDE 0.9% 80 ML IV SCH ×5 (02:43→23:59)
[2021-03-31 04:27] LABS: Basophils % (A) 0 %; Eosinophils # (A) 0.1 k/uL (0-0.7); Eosinophils % (A) 1 %; HCT 35.6 % (34.0-46.0); HGB 11.5 gm/dL (11.4-16.0); Lymphocytes # (A) 0.7 k/uL (1.0-4.8); Lymphocytes % (A) 7 %; MCH 30.5 pg (25.0-35.0); MCHC 32.3 g/dL (31.0-37.0); MCV 94.4 fL (80.0-100.0); Mean Platelet Volume 7.7; Monocytes # (A) 0.3 k/uL (0-1.0); Monocytes % (A) 3 %; Neutrophils # (A) 9.8 k/uL (1.3-7.7); Neutrophils % (A) 89 %; Platelet Count 381 k/uL (150-450); RBC 3.77 m/uL (3.80-5.40); RDW 14.9 % (11.5-15.5); WBC 11.1 k/uL (3.8-10.6)
[2021-03-31 04:39] LABS: ALT 87 U/L (4-34); AST 67 U/L (14-36); African American GFR (CKD) >90 (>60 ml/min/1.73 sqM); Albumin 2.2 g/dL (3.5-5.0); Alkaline Phosphatase 174 U/L (38-126); Anion Gap 3 mmol/L; Blood Urea Nitrogen 24 mg/dL (7-17); Calcium 8.1 mg/dL (8.4-10.2); Carbon Dioxide 25 mmol/L (22-30); Chloride 109 mmol/L (98-107); Glucose 173 mg/dL (74-99); Non-African American GFR(CKD) >90 (>60 ml/min/1.73 sqM); Potassium 3.8 mmol/L (3.5-5.1); Sodium 137 mmol/L (137-145); Total Bilirubin 0.3 mg/dL (0.2-1.3); Total Protein 4.8 g/dL (6.3-8.2)
[2021-03-31] MEDS: LEVOTHYROXINE 75 MCG TAB PO SCH (04:49)
[2021-03-31] MEDS: VANCOMYCIN 1,500 MG in SODIUM CHLORIDE 0.9% 250 ML IVPB SCH ×2 (04:51→18:59)
[2021-03-31] MEDS ORDERED: VANCOMYCIN TROUGH DUE 1 EACH MISC MISCELLANE ONE (05:00)
[2021-03-31] MEDS ORDERED: POTASSIUM BICARBONATE/CIT AC 20 MEQ TABLET.EFF NG-TUBE SCH (06:00)
[2021-03-31 06:11] LABS: ABG Base Excess -6.7 mmol/L; ABG HCO3 20 mmol/L (21-25); ABG Oxygen Saturation 91.8 % (94-97); ABG PCO2 39 mmHg (35-45); ABG PH 7.31 (7.35-7.45); ABG PO2 65 mmHg (83-108); ABG TCO2 21 mmol/L (19-24)
[2021-03-31 06:37] LABS: Allen Test Performed? No
[2021-03-31 06:49] LABS: Glucose,Whole Blood 194 mg/dL (75-99)
--- NOTE | 2021-03-31 07:13 | XR ---
EXAMINATION TYPE: XR chest 1V portable DATE OF EXAM: 03/31/2021 5:49 AM COMPARISON:Chest radiograph from one day prior. CLINICAL INDICATION:Female, 65 years old with history of Tube placement TECHNIQUE: Portable AP radiograph of the chest.. FINDINGS: Lungs/Pleura: Similar multifocal airspace opacities. No evidence of pneumothorax or pleural effusion. Pulmonary vascularity: Unremarkable. Heart/mediastinum: Cardiomediastinal silhouette is unremarkable. Musculoskeletal: No acute osseous pathology. Other findings: Diffuse subcutaneous emphysema over the chest as seen on prior. Lines/Tubes: Endotracheal tube with distal tip 4.3 cm above the jese Nasogastric tube with its distal tip and side-port projecting under the diaphragm. Left central venous catheter with distal tip at the cavoatrial junction. IMPRESSION: 1. Similar multifocal opacities. 2. Interval placement of left jugular venous catheter, stable support tubes.
[2021-03-31] MEDS: ALBUTEROL HFA INHALER INHALATION SCH ×4 (07:57→19:30)
[2021-03-31] MEDS: ASCORBIC ACID 500 MG TAB PO SCH (08:25)
[2021-03-31] MEDS: CHLORHEXIDINE GLUCONATE 15 ML CUP MUCOUS MEM SCH ×2 (08:25→23:45)
[2021-03-31] MEDS: INSULIN DETEMIR (LEVEMIR) 100 UNIT/ML SYR SQ SCH (08:25)
[2021-03-31] MEDS: ZINC SULFATE 220 MG CAP PO SCH (08:26)
[2021-03-31] MEDS: ENOXAPARIN 40 MG/0.4 ML SYRINGE SQ SCH ×2 (08:26→23:45)
[2021-03-31] MEDS: DEXAMETHASONE SOD PHOSPHATE 10 MG/ML 1 ML VIAL IVP SCH (08:26)
[2021-03-31] MEDS: PANTOPRAZOLE 40 MG/10 ML VIAL IVP SCH (08:26)
[2021-03-31] MEDS: CHOLECALCIFEROL 25 MCG (1000 IU) TABLET PO SCH (08:27)
[2021-03-31] MEDS: ARTIFICIAL TEARS-HYPROMELLOSE DROPS 15 ML BTL BOTH EYES SCH ×4 (08:27→23:45)
[2021-03-31] MEDS: CISATRACURIUM 200 MG in SODIUM CHLORIDE 0.9% 180 ML IV SCH (11:05)
[2021-03-31 11:52] LABS: Glucose,Whole Blood 225 mg/dL (75-99)
[2021-03-31] MEDS ORDERED: CEFEPIME 1 GM in SODIUM CHLORIDE 0.9% 50 ML IVPB SCH (12:00)
[2021-03-31] MEDS: NOREPINEPHRINE 32 MG in SODIUM CHLORIDE 0.9% 218 ML IV SCH (12:27)
--- NOTE | 2021-03-31 13:38 | P.PN ---
Subjective Progress Note Date: 03/31/21 Principal diagnosis: Acute hypoxic respiratory failure secondary to COVID-19 pneumonia 03/24/2021, the patient is having more difficulty in breathing. This morning, the patient started having worsening shortness of breath and worsening and hypoxemia. The patient is currently on BiPAP at a pressure of 14/8 cm of water. He is quite tachypneic. The respiratory rate is around 34 times a minute and her minute ventilation is above 24 L per minute. She is quite tachypneic and short of breath and she is also tachycardic. Note that, the patient's condition was gradually getting worse over the past several days. The patient was on 9 L of oxygen by nasal cannula and there was progressive rise in her oxygen requirements and she was brought up to 15 L and later on to 100% nonrebreather facemask and currently she is on a BiPAP. At the same time, the patient is being treated with a combination of Decadron and Baricitinib per protocol. She is on Lovenox for DVT prophylaxis 40 mg subcu daily basis. This is consistent with COVID 19 related pneumonia. While on the BiPAP, she underwent a blood gas that showed a pH of 7.46 with a pCO2 of 37 and pO2 of 50. Subsequently, her oxygen saturations improved. Her d-dimer from yesterday was more than 34. Her CRP level was 14 and her LDH level was 657. Rest of the blood work shows a potassium level of 3.4 with a sodium of 140. Reevaluated today on 03/25/2021, patient was transferred to the ICU this morning, she was placed on 100% FiO2, and BiPAP, and her O2 saturations remained marginal. I evaluated the patient in the ICU, and she was made aware that her condition seems to be worsening and she will likely end up requiring intubation and mechanical ventilation. An hour later, the patient decompensated, and she required to be intubated and mechanically ventilated. Patient was placed initially on 100% FiO2, EPAP of 12, tidal volume is 400, rate of 30. ABG is pending. Her d-dimer is 34. The left lites are normal LDH 879 C-reactive protein 15.6. CT angiogram few days ago showed no evidence of pulmonary embo lism. Venous Doppler negative for DVT Reevaluated today on 03/26/2021, patient remains in the ICU, intubated and mechanically ventilated. Patient is on assist control rate of 3 to tidal volume 400 FiO2 80%, PEEP of 14. Changes were made including tidal volume decreased to 375 FiO2 decreased to 70% PEEP increased to 16. Rate remained the same at 32. Patient is on propofol at 50 fentanyl at 0.5 Nimbex at 1.5. She is also on enteral feeding. She is hemodynamically stable, not requiring any pressors. Chest x-ray continues to show bilateral interstitial infiltrates consistent with COVID-19 pneumonia. Patient had negative workup for pulmonary embolism and negative workup for venous Doppler upon admission. ABG today showed a pO2 of 106 pCO2 of 40 pH of 7.39. Her CBC is relatively normal electrolytes are normal renal profile is normal. Reevaluated today on 03/27/2021, remains in the ICU intubated and mechanically ventilated. She is presently on assist control rate of 3 to tidal volume 375 PEEP is 16, FiO2 60%. ABG showed a pO2 of 67 pCO2 44 pH of 7.30. Hence I cut down her FiO2 to 55%. Patient remains on propofol at 40 mcg/kg/m norepinephrine at 0.05 mcg/kg/m Nimbex at 1.5 mcg/kg/ minute, and fentanyl 0.5 mcg/kg/h. Patient remains sedated and paralyzed, her ABG this morning showed a pO2 of 67 pCO2 of 44 pH of 7.30, FiO2 decreased to 55%. However as I was dictating this note, I was notified by the nurse that she developed subcu emphysema, and I'm recommending a stat chest x-ray, to determine if the patient has a new onset normal mediastinum or possibly a pneumothorax. Chest x-ray is pending at the time of this dictation. A shunt remains on enteral feedings. She is requiring a small dose of norepinephrine for hemodynamic instability. Reevaluated today on 03/28/2021, patient remains in the ICU, intubated and mechanically ventilated. Patient is on assist control rate of 32 volume of 375 FiO2 50% PEEP of 16. ABG showed a pO2 of 67 pCO2 of 49 pH of 7.30. Patient is on IV fluid at 1 20 mL/h, up a fall 45 mcg/kg/m, Nimbex at 1.5 mcg/kg/m, fentanyl 0.5 mcg/kg/h, she is off norepinephrine. CBC showed WBC count of 11.8 hemoglobin is 12.2. Hematocrit is 39.4. Electrolytes are normal renal profile is normal. Chest x-ray continues to show bilateral infiltrates, and there is evidence of pneumomediastinum and subcutaneous emphysema. Patient remains on th e COVID-19 cocktail, she is on echo from 6 mg IV push daily she is also on Lovenox 40 mg subcu twice a day. Patient is also receiving baricitinib . Patient is also on enteral feedings. Reevaluated today on 03/29/2021, remains in the ICU, intubated and mechanically ventilated. Patient is on assist control rate of 32, FiO2 of 50% tidal volume of 375 PEEP 16, decreased down to 14 today. And increase her FiO2 to 55%. ABG showed a pO2 of 70 pCO2 49 pH of 7.33 WBC count is 16.5 hemoglobin is 12 electrolytes are normal renal profile is normal. Patient is on multiple drips including IV fluid at 120 mL/h and I cut it down to KVO she is on enteral feeding via orogastric tube. Nimbex 2 mcg/kg/m propofol 60 mcg/kg/m fentanyl 0.75 mcg/kg/h. Patient is now off norepinephrine. Chest x-ray continues to show bilateral infiltrates, and worsening subcu emphysema, hence I went ahead and placed 3 different 14-Eritrean catheters, one placed in the left supraclavicular area, one in the right supraclavicular area, and one in the anterior chest wall on the left side. Mostly to decompressive subcutaneous emphysema. These were placed uneventfully, and place and a sterile field. And covered with dressing. Patient is on the COVID-19 cocktail. She is also on baricitinib Decadron 6 mg IV push daily, Lovenox 40 mg subcu twice a day, she is also on Protonix 40 mg IV push daily and zinc. Reevaluated today on 03/30/2021, patient remains in the ICU, intubated and mechanically ventilated. She remains on assist control rate of 32 tidal volume 375 FiO2 60% and I cut it down to 55% PEEP remains at 10. ABG showed a pO2 of 59 pCO2 of 39 pH of 7.44. Chest x-ray showed bilateral infiltrates, persistent subcutaneous emphysema but seems to be less compared to the previous 2 days. No evidence of pneumothorax. Remains on multiple drips including norepinephrine at 0.03 mcg/kg/m, Nimbex at 2 mcg/kg/m, fentanyl at 2.5 mcg/kg/h propofol 50 mcg/kg/m. IV fluid at 20 mL per hour. Patient is on vital AF 26 mL per hour. Chest x-ray again is not showing much of a change. Patient remains on the COVID -19 cocktail including Decadron, Lovenox, Protonix, and she is also on baricitinib Reevaluated today on 03/31/2021, patient remains in the ICU, intubated and mechanically ventilated. She is on assist control rate of 3 to tidal volume 375 FiO2 70% and PEEP at 10 however after reviewing her ABG I recommended increasing the PEEP to 12 and I cut down her FiO2 from 70% to 65%. ABG showed a pO2 of 65 pCO2 of 39 pH of 7.30. Patient remains on Nimbex at 2 mcg/kg/m fentanyl at 2.5 mcg/kg/h propofol at 50 mcg/kg/m. She is also requiring norepinephrine at 0.08 mcg/kg/m, her blood pressure seems to be extremely labile. It is all over the chart. Today I recommended an echocardiogram, I also recommended serum cortisol level on this patient. Her chest x-ray continues to show bilateral infiltrates and subcu emphysema. However the subcu emphysema seems to be regressing. There is no evidence of pneumothorax. WBC count is 11.1 hemoglobin is 11.5 twice a normal renal profile is normal. Transaminases are slightly elevated. Yesterday the patient had positive sputum cultures for staph aureus, it was basically MSSA, hence we discontinued her baricitinib, received a dose of vancomycin, but considering the staph aureus is MSSA, will start the patient on cefepime and discontinue vancomycin and this was already discontinued yesterday. Objective - Vital Signs Vital signs: Vital Signs Temp 99.1 F 03/31/21 04:00 Pulse 93 03/31/21 11:00 Resp 32 H 03/31/21 11:00 BP 118/64 03/31/21 11:00 Pulse Ox 93 L 03/31/21 11:00 Intake & Output 03/30/21 03/31/21 03/31/21 18:59 06:59 18:59 Intake Total 291.242 0916.875 584.958 Output Total 605 815 240 Balance 233.019 341.875 344.958 Weight 87 kg Intake: IV 243 264 103 Sodium Chloride 0.9% 1, 240 240 100 000 ml @ 20 mls/hr IV . Q24H [facility] Rx#:[id number] pressure bag 3 24 3 Intake, IV Titration 595.019 426.875 455.958 Amount Cisatracurium 200 mg In 132.742 171.693 Sodium Chloride 0.9% 180 ml @ 1 MCG/KG/MIN 4.218 mls/hr IV .Q24H [facility] Rx#: [id number] Clevidipine Butyrate 25 46.666 mg In Empty Bag 1 bag @ 1 MG/HR 2 mls/hr IV .Q24H PRN Rx#:[id number] Norepinephrine 32 mg In 2.475 0 Sodium Chloride 0.9% 218 ml @ 0.05 MCG/KG/MIN 1. 828 mls/hr IV .Q24H [facility] Rx#:[id number] fentaNYL (PF). 1,000 mcg 177.046 180.209 184.265 In Sodium Chloride 0.9% 80 ml @ 0.5 MCG/KG/HR 3. 515 mls/hr IV .Q24H [facility] Rx#:[id number] propofoL 1,000 mg In 282.756 200.000 100 Empty Bag 1 bag @ Titrate IV .Q0M [facility] Rx#: [id number] Tube Feeding 286 26 Other 180 Output: Urine 605 815 240 Other: Voiding Method Indwelling Catheter Indwelling Catheter Indwelling Catheter ABP, PAP, CO, CI - Last Documented Arterial Blood Pressure 207/92 - Exam General appearance: Revealed a 65-year-old female intubated and mechanically ventilated. Head exam: Atraumatic, normocephalic. Endotracheal tube and orogastric tube are intact . Subcutaneous emphysema is basically about the same. Eye exam: PERRLA, EOMI, anicteric, no neck masses no JVD, no stridor. Perio rbital edema is noted. ENT exam:normal exam, mucous membranes moist Neck exam: Short obese neck, otherwise normal inspection . supraclavicular and subcutaneous emphysema noted. Respiratory exam: Symmetrical chest expansion, crackles at the bases bilaterally. Cardiovascular Exam: Normal S1 and S2, no S3 gallop Extremities exam: No clubbing 2+ bipedal edema , no cyanosis. Neurological exam: Could not assess, patient is sedated on mechanical ventila tion. Psychiatric exam: Could not be assessed, patient is sedated and mechanically ventilated. Skin exam: No rashes. - Labs CBC & Chem 7: 03/31/21 04:02 03/31/21 04:02 Labs: Abnormal Lab Results - Last 24 Hours (Table) 03/30/21 03/31/21 03/31/21 Range/Units 17:53 00:09 04:02 WBC 11.1 H (3.8-10.6) k/uL RBC 3.77 L (3.80-5.40) m/uL Neutrophils # 9.8 H (1.3-7.7) k/uL Lymphocytes # 0.7 L (1.0-4.8) k/uL ABG pH (7.35-7.45) ABG pO2 (83-108) mmHg ABG HCO3 (21-25) mmol/L ABG O2 Saturation (94-97) % Chloride (98-107) mmol/L BUN (7-17) mg/dL Creatinine (0.52-1.04) mg/dL Glucose (74-99) mg/dL POC Glucose (mg/dL) 238 H 235 H (75-99) mg/dL Calcium (8.4-10.2) mg/dL AST (14-36) U/L ALT (4-34) U/L Alkaline Phosphatase (38-126) U/L Total Protein (6.3-8.2) g/dL Albumin (3.5-5.0) g/dL 03/31/21 03/31/21 03/31/21 Range/Units 04:02 05:35 06:48 WBC (3.8-10.6) k/uL RBC (3.80-5.40) m/uL Neutrophils # (1.3-7.7) k/uL Lymphocytes # (1.0-4.8) k/uL ABG pH 7.31 L (7.35-7.45) ABG pO2 65 L (83-108) mmHg ABG HCO3 20 L (21-25) mmol/L ABG O2 Saturation 91.8 L (94-97) % Chloride 109 H (98-107) mmol/L BUN 24 H (7-17) mg/dL Creatinine 0.49 L (0.52-1.04) mg/dL Glucose 173 H (74-99) mg/dL POC Glucose (mg/dL) 194 H (75-99) mg/dL Calcium 8.1 L (8.4-10.2) mg/dL AST 67 H (14-36) U/L ALT 87 H (4-34) U/L Alkaline Phosphatase 174 H (38-126) U/L Total Protein 4.8 L (6.3-8.2) g/dL Albumin 2.2 L (3.5-5.0) g/dL 03/31/21 Range/Units 11:50 WBC (3.8-10.6) k/uL RBC (3.80-5.40) m/uL Neutrophils # (1.3-7.7) k/uL Lymphocytes # (1.0-4.8) k/uL ABG pH (7.35-7.45) ABG pO2 (83-108) mmHg ABG HCO3 (21-25) mmol/L ABG O2 Saturation (94-97) % Chloride (98-107) mmol/L BUN (7-17) mg/dL Creatinine (0.52-1.04) mg/dL Glucose (74-99) mg/dL POC Glucose (mg/dL) 225 H (75-99) mg/dL Calcium (8.4-10.2) mg/dL AST (14-36) U/L ALT (4-34) U/L Alkaline Phosphatase (38-126) U/L Total Protein (6.3-8.2) g/dL Albumin (3.5-5.0) g/dL Microbiology - Last 24 Hours (Table) 03/28/21 17:15 Gram Stain - Final Sputum Sputum Culture - Final Staphylococcus aureus Assessment and Plan Assessment: Impression: Acute hypoxic respiratory failure secondary to COVID-19 pneumonia, requiring intubation and mechanical ventilation on 03/25/21, patient had symptoms about 11 days prior to presentation, her CT angiogram was negative for pulmonary embolism. And her Doppler was negative for DVT. Hence the patient will remain on Lovenox at 40 mg subcu twice a day. Elevated inflammatory markers and elevated d-dimer secondary to above. Type 2 diabetes. Hypothyroidism. Dyslipidemia. subcu emphysema, and pneumomediastinum secondary to COVID-19 pneumonia and barotrauma. Status post placement of 3 different 14-Eritrean catheters to decompress subcutaneous emphysema in the left supraclavicular area right supraclavicular area, and left anterior chest wall. Labile blood pressure requiring norepinephrine at a low dose. Cardiogram and serum cortisol are pending. Recommendation: Continue ventilatory support. Patient is now on FiO2 65% tidal volume 375 assist control rate of 32 and PEEP is 12. Nutritional support/enteral feeding GI prophylaxis. Continue Lovenox 40 mg subcu twice a day. Discontinue baricitinib, start patient on cefepime for presumptive superimposed MSSA pneumonia especially with positive sputum cultures. Continue COVID-19 cocktail. Remains critically ill. Critical care time is over 30 minutes. Time with Patient: Greater than 30
[2021-03-31 18:39] LABS: Glucose,Whole Blood 168 mg/dL (75-99)
--- NOTE | 2021-03-31 23:08 | P.PN ---
Subjective This is 65-year-old female with past medical history of diabetes mellitus, hyperlipidemia, hypertension, osteoarthritis, no smoking history presented to the ER with worsening dyspnea 10 days Patient found to have bilateral covert pneumonia with secondary hypoxia severe enough to need intubation and mechanical ventilation. With superimposed fatuma terial infection of the lung with sputum culture growing staph and patient is placed on IV vancomycin. Patient has increased inflammatory markers LDH 879, CRP 1-5.6. WBC elevated at 13 K, liver enzymes mildly elevated. Chest x-ray showing bilateral pulmonary infiltrate. Broadcalcitonin elevated 1.5. She remains on Lovenox 40 mg twice a day as Doppler of the lower extremity and CTA of the chest are negative for clots. Also she is Protonix, dexamethasone, vitamin C, D and zinc. Metformin and Amaryl are helped sugar controlled on sliding scale 03/31/2021 Patient remains in the ICU sedated and intubated with pulmonary/critical care team following her closely. She still needs high PEEP valvule. And she still tachypneic but no fever. WBC 11.1. Mild increased liver enzymes which is the same. Chest x-ray showing multifocal pneumonia. Sputum culture growing staph. And patient currently is covered with IV vancomycin and cefepime is a started today by pulmonary team. Also she is on dexamethasone, vitamin C, vitamin D, zinc and Lovenox 40 mg twice a day and Protonix Objective - Vital Signs Vital signs: Vital Signs Temp 98.5 F 03/31/21 15:00 Pulse 55 L 03/31/21 19:00 Resp 32 H 03/31/21 19:49 BP 147/70 03/31/21 19:00 Pulse Ox 93 L 03/31/21 19:00 Intake & Output 03/31/21 03/31/21 04/01/21 06:59 18:59 06:59 Intake Total 1777.080 0727.287 158.383 Output Total 815 1275 205 Balance 341.875 -269.713 -46.617 Weight 87 kg Intake: IV 264 243 25 Sodium Chloride 0.9% 1, 240 240 22 000 ml @ 20 mls/hr IV . Q24H [facility] Rx#:[id number] pressure bag 24 3 3 Intake, IV Titration 426.875 736.287 47.383 Amount Cisatracurium 200 mg In 171.693 Sodium Chloride 0.9% 180 ml @ 1 MCG/KG/MIN 4.218 mls/hr IV .Q24H [facility] Rx#: [id number] Clevidipine Butyrate 25 46.666 mg In Empty Bag 1 bag @ 1 MG/HR 2 mls/hr IV .Q24H [facility] Rx#:[id number] Norepinephrine 32 mg In 0 47.383 Sodium Chloride 0.9% 218 ml @ 0.05 MCG/KG/MIN 1. 828 mls/hr IV .Q24H [facility] Rx#:[id number] fentaNYL (PF). 1,000 mcg 180.209 281.231 In Sodium Chloride 0.9% 80 ml @ 0.5 MCG/KG/HR 3. 515 mls/hr IV .Q24H [facility] Rx#:[id number] propofoL 1,000 mg In 200.000 283.363 Empty Bag 1 bag @ Titrate IV .Q0M [facility] Rx#: [id number] Tube Feeding 286 26 26 Other 180 60 Output: Urine 815 1275 205 Other: Voiding Method Indwelling Catheter Indwelling Catheter Indwelling Catheter ABP, PAP, CO, CI - Last Documented Arterial Blood Pressure 170/76 - Exam -GENERAL: The patient is intubated and sedated HEENT: Pupils are round and equally reacting to light. EOMI. No scleral icterus. No conjunctival pallor. Normocephalic, atraumatic. No pharyngeal erythema. No thyromegaly. CARDIOVASCULAR: S1 and S2 present. No murmurs, rubs, or gallops. -PULMONARY: Chest is clear to auscultation, no wheezing. b/l crepitation ABDOMEN: Soft, nontender, nondistended, normoactive bowel sounds. No palpable or ganomegaly. MUSCULOSKELETAL: No joint swelling or deformity. EXTREMITIES: No cyanosis, clubbing, or pedal edema. NEUROLOGICAL: Gross neurological examination did not reveal any focal deficits. SKIN: No rashes. no petechiae. - Labs CBC & Chem 7: 03/31/21 04:02 03/31/21 04:02 Labs: Abnormal Lab Results - Last 24 Hours (Table) 03/31/21 03/31/21 03/31/21 Range/Units 00:09 04:02 04:02 WBC 11.1 H (3.8-10.6) k/uL RBC 3.77 L (3.80-5.40) m/uL Neutrophils # 9.8 H (1.3-7.7) k/uL Lymphocytes # 0.7 L (1.0-4.8) k/uL ABG pH (7.35-7.45) ABG pO2 (83-108) mmHg ABG HCO3 (21-25) mmol/L ABG O2 Saturation (94-97) % Chloride 109 H (98-107) mmol/L BUN 24 H (7-17) mg/dL Creatinine 0.49 L (0.52-1.04) mg/dL Glucose 173 H (74-99) mg/dL POC Glucose (mg/dL) 235 H (75-99) mg/dL Calcium 8.1 L (8.4-10.2) mg/dL AST 67 H (14-36) U/L ALT 87 H (4-34) U/L Alkaline Phosphatase 174 H (38-126) U/L Total Protein 4.8 L (6.3-8.2) g/dL Albumin 2.2 L (3.5-5.0) g/dL 03/31/21 03/31/21 03/31/21 Range/Units 05:35 06:48 11:50 WBC (3.8-10.6) k/uL RBC (3.80-5.40) m/uL Neutrophils # (1.3-7.7) k/uL Lymphocytes # (1.0-4.8) k/uL ABG pH 7.31 L (7.35-7.45) ABG pO2 65 L (83-108) mmHg ABG HCO3 20 L (21-25) mmol/L ABG O2 Saturation 91.8 L (94-97) % Chloride (98-107) mmol/L BUN (7-17) mg/dL Creatinine (0.52-1.04) mg/dL Glucose (74-99) mg/dL POC Glucose (mg/dL) 194 H 225 H (75-99) mg/dL Calcium (8.4-10.2) mg/dL AST (14-36) U/L ALT (4-34) U/L Alkaline Phosphatase (38-126) U/L Total Protein (6.3-8.2) g/dL Albumin (3.5-5.0) g/dL 03/31/21 Range/Units 18:38 WBC (3.8-10.6) k/uL RBC (3.80-5.40) m/uL Neutrophils # (1.3-7.7) k/uL Lymphocytes # (1.0-4.8) k/uL ABG pH (7.35-7.45) ABG pO2 (83-108) mmHg ABG HCO3 (21-25) mmol/L ABG O2 Saturation (94-97) % Chloride (98-107) mmol/L BUN (7-17) mg/dL Creatinine (0.52-1.04) mg/dL Glucose (74-99) mg/dL POC Glucose (mg/dL) 168 H (75-99) mg/dL Calcium (8.4-10.2) mg/dL AST (14-36) U/L ALT (4-34) U/L Alkaline Phosphatase (38-126) U/L Total Protein (6.3-8.2) g/dL Albumin (3.5-5.0) g/dL Assessment and Plan Assessment: Bilateral Covid pneumonia with bacterial superinfection secondary to staff Acute hypoxic respiratory failure Increased inflammatory markers Diabetes mellitus, type II Hypothyroidism Hyperlipidemia Plan: This is a pleasant 65 years old female who presents with Bilateral Covid pneumonia and hypoxia Continue with vitamin C, vitamin D, and zinc. Continue with dexamethasone Pulmonary team consult Continue with intubation and mechanical ventilation Continue with IV antibiotics as per pulmonary team. Currently she is on IV vancomycin and cefepime Continue with insulin sliding scale and monitor glucose Labs and medication were reviewed.. Continue same treatment. Continue with symptomatic treatment. Resume home medication. Monitor lytes and vitals. DVT and GI prophylaxis. Further recommendations as per clinical course of the patient DVT prophylaxis: Subcutaneous Lovenox GI Prophylaxis: Ppi Prognosis is guarded
[2021-03-31] MEDS: ATORVASTATIN 40 MG TAB PO SCH (23:45)
[2021-03-31] MEDS: lisinopriL 10 MG TAB PO SCH (23:45)
[2021-03-31] MEDS: CEFEPIME 2 GM in SODIUM CHLORIDE 0.9% 100 ML IVPB SCH (23:46)
[2021-04-01 02:21] LABS: Glucose,Whole Blood 178 mg/dL (75-99)
[2021-04-01] MEDS: INSULIN ASPART (NovoLOG) 100 UNIT/ML VIAL SQ SCH ×4 (02:25→17:52)
[2021-04-01 05:02] LABS: Basophils % (A) 0 %; Eosinophils # (A) 0.2 k/uL (0-0.7); Eosinophils % (A) 1 %; HCT 32.7 % (34.0-46.0); HGB 10.7 gm/dL (11.4-16.0); Lymphocytes # (A) 1.2 k/uL (1.0-4.8); Lymphocytes % (A) 10 %; MCH 30.5 pg (25.0-35.0); MCHC 32.7 g/dL (31.0-37.0); MCV 93.3 fL (80.0-100.0); Mean Platelet Volume 8.4; Monocytes # (A) 0.3 k/uL (0-1.0); Monocytes % (A) 2 %; Neutrophils # (A) 10.7 k/uL (1.3-7.7); Neutrophils % (A) 85 %; Platelet Count 408 k/uL (150-450); WBC 12.5 k/uL (3.8-10.6)
[2021-04-01] MEDS: fentaNYL (PF). 1,000 MCG in SODIUM CHLORIDE 0.9% 80 ML IV SCH ×4 (05:21→22:02)
[2021-04-01 05:22] LABS: ALT 109 U/L (4-34); AST 57 U/L (14-36); African American GFR (CKD) >90 (>60 ml/min/1.73 sqM); Alkaline Phosphatase 194 U/L (38-126); Anion Gap 4 mmol/L; Blood Urea Nitrogen 19 mg/dL (7-17); Calcium 8.1 mg/dL (8.4-10.2); Carbon Dioxide 28 mmol/L (22-30); Chloride 105 mmol/L (98-107); Glucose 159 mg/dL (74-99); Non-African American GFR(CKD) >90 (>60 ml/min/1.73 sqM); Potassium 3.8 mmol/L (3.5-5.1); Sodium 137 mmol/L (137-145); Total Bilirubin 0.2 mg/dL (0.2-1.3); Total Protein 4.5 g/dL (6.3-8.2)
[2021-04-01] MEDS ORDERED: Potassium Replacement Protocol 1 EACH MISC MISCELLANE PRN (05:23)
[2021-04-01 05:39] LABS: Glucose,Whole Blood 198 mg/dL (75-99)
[2021-04-01] MEDS: LEVOTHYROXINE 75 MCG TAB PO SCH (05:41)
[2021-04-01 05:53] LABS: ABG HCO3 27 mmol/L (21-25); ABG Oxygen Saturation 92.4 % (94-97); ABG PCO2 41 mmHg (35-45); ABG PH 7.43 (7.35-7.45); ABG PO2 62 mmHg (83-108); ABG TCO2 29 mmol/L (19-24)
[2021-04-01 06:02] LABS: Allen Test Performed? No
[2021-04-01] MEDS: VANCOMYCIN 1,500 MG in SODIUM CHLORIDE 0.9% 250 ML IVPB SCH (06:05)
[2021-04-01] MEDS: CISATRACURIUM 200 MG in SODIUM CHLORIDE 0.9% 180 ML IV SCH (06:34)
[2021-04-01] MEDS ORDERED: POTASSIUM BICARBONATE/CIT AC 20 MEQ TABLET.EFF NG-TUBE SCH (07:00)
[2021-04-01] MEDS: ZINC SULFATE 220 MG CAP PO SCH (08:55)
[2021-04-01] MEDS: CHLORHEXIDINE GLUCONATE 15 ML CUP MUCOUS MEM SCH ×2 (08:55→20:14)
[2021-04-01] MEDS: ASCORBIC ACID 500 MG TAB PO SCH (08:55)
[2021-04-01] MEDS: PANTOPRAZOLE 40 MG/10 ML VIAL IVP SCH (08:55)
[2021-04-01] MEDS: DEXAMETHASONE SOD PHOSPHATE 10 MG/ML 1 ML VIAL IVP SCH (08:55)
[2021-04-01] MEDS: INSULIN DETEMIR (LEVEMIR) 100 UNIT/ML SYR SQ SCH (08:55)
[2021-04-01] MEDS: ENOXAPARIN 40 MG/0.4 ML SYRINGE SQ SCH (08:55)
[2021-04-01] MEDS: CHOLECALCIFEROL 25 MCG (1000 IU) TABLET PO SCH (08:55)
[2021-04-01] MEDS: CEFEPIME 2 GM in SODIUM CHLORIDE 0.9% 100 ML IVPB SCH (08:56)
[2021-04-01] MEDS: ARTIFICIAL TEARS-HYPROMELLOSE DROPS 15 ML BTL BOTH EYES SCH ×4 (09:01→21:06)
[2021-04-01] MEDS ORDERED: FUROSEMIDE 10 MG/ML 10 ML VIAL IV STA (09:24)
[2021-04-01] MEDS: ALBUTEROL HFA INHALER INHALATION SCH ×4 (09:49→20:06)
[2021-04-01] MEDS: NOREPINEPHRINE 32 MG in SODIUM CHLORIDE 0.9% 218 ML IV SCH (10:05)
--- NOTE | 2021-04-01 10:55 | XR ---
EXAMINATION TYPE: XR chest 1V portable DATE OF EXAM: 04/01/2021 Comparison: 03/31/2021 Clinical History: 65-year-old female covid Findings: ETT and NG tube are satisfactory. Left subclavian CVC tip near the cavoatrial junction. Heart upper l imits of normal in size. Bilateral subcutaneous emphysema persists but is improving from prior exam. No appreciable pneumothorax. Patchy interstitial changes bilaterally and focal bibasilar opacities pe rsist. Impression: 1. Continued bilateral peripheral and basilar COVID pneumonia without significant change. 2. Improving bilateral subcutaneous emphysema.
--- NOTE | 2021-04-01 11:27 | ECHOF ---
Referral Reason:labile bp/cardiomyopathy/covid MEASUREMENTS -------- HEIGHT: 157.5 cm WEIGHT: 89.4 kg BP: 148/67 RVIDd: 3.0 cm (< 3.3) IVSd: 1.1 cm (0.6 - 1.1) LVIDd: 3.5 cm (3.9 - 5.3) LVPWd: 1.1 cm (0.6 - 1.1) IVSs: 1.6 cm LVIDs: 2.5 cm LVPWs: 1.2 cm LA Diam: 2.8 cm (2.7 - 3.8) LAESV Index (A-L): 15.49 ml/m Ao Diam: 2.5 cm (2.0 - 3.7) AV Cusp: 1.9 cm (1.5 - 2.6) MV EXCURSION: 9.870 mm (> 18.000) MV EF SLOPE: 24 mm/s (70 - 150) EPSS: 0.2 cm MV E Saroj: 0.88 m/s MV DecT: 282 ms MV A Saroj: 0.77 m/s MV E/A Ratio: 1.15 AV maxP.24 mmHg AV meanP.60 mmHg AR PHT: 576 ms RAP: 15.00 mmHg RVSP: 48.41 mmHg FINDINGS -------- Sinus rhythm. This was a technically adequate study. The left ventricular size is normal. There is borderline concentric left ventricular hypertrophy. Left ventricular systolic function is hyperdynamic with an estimated EF of >70%. The right ventricle is normal in size. Normal LA size by volume 22+/-6 ml/m2. The right atrium is normal in size. Interatrial and interventricular septum intact. The aortic valve was not well visualized. The maximum velocity across the aortic valve is 3.58m/s. LVOT obstraction with mean gradient of 42 mmHg The mitral valve leaflets are mildly thickened. Mild mitral annular calcification present. Mild tricuspid regurgitation present. There is moderate pulmonary hypertension. The right ventric ular systolic pressure, as measured by Doppler, is 48.41mmHg. The pulmonic valve was not well visualized. The aortic root size is normal. Normal inferior vena cava with less than 50% inspiratory collapse consistent with estimated right atr ial pressure of 15 mmHg. There is no pericardial effusion. CONCLUSIONS -------- 1. The left ventricular size is normal. 2. There is borderline concentric left ventricular hypertrophy. 3. Left ventricular systolic function is hyperdynamic with an estimated EF of >70%. 4. The maximum velocity across the aortic valve is 3.58m/s. 5. LVOT obstraction with mean gradient of 42 mmHg 6. The mitral valve leaflets are mildly thickened. 7. Mild mitral annular calcification present. 8. Mild tricuspid regurgitation present. 9. There is moderate pulmonary hypertension. 10. The right ventricular systolic pressure, as measured by Doppler, is 48.41mmHg. 11. Normal inferior vena cava with less than 50% inspiratory collapse consistent with estimated right atrial pressure of 15 mmHg. 12. There is no pericardial effusion. GRAPHIC PRODUCTION ARTIST: Annabella Ramirez RDCS
[2021-04-01 11:34] LABS: Glucose,Whole Blood 175 mg/dL (75-99)
--- NOTE | 2021-04-01 11:45 | P.PN ---
Subjective Progress Note Date: 04/01/21 Principal diagnosis: Coronavirus associated pneumonia. Reevaluated today on 03/27/2021, remains in the ICU intubated and mechanically ventilated. She is presently on assist control rate of 3 to tidal volume 375 PEEP is 16, FiO2 60%. ABG showed a pO2 of 67 pCO2 44 pH of 7.30. Hence I cut down her FiO2 to 55%. Patient remains on propofol at 40 mcg/kg/m norepinephrine at 0.05 mcg/kg/m Nimbex at 1.5 mcg/kg/ minute, and fentanyl 0.5 mcg/kg/h. Patient remains sedated and paralyzed, her ABG this morning showed a pO2 of 67 pCO2 of 44 pH of 7.30, FiO2 decreased to 55%. However as I was dictating this note, I was notified by the nurse that she developed subcu emphysema, and I'm recommending a stat chest x-ray, to determine if the patient has a new onset normal mediastinum or possibly a pneumothorax. Chest x-ray is pending at the time of this dictation. A shunt remains on enteral feedings. She is requiring a small dose of norepinephrine for hemodynamic instability. Reevaluated today on 03/28/2021, patient remains in the ICU, intubated and mechanically ventilated. Patient is on assist control rate of 32 volume of 375 FiO2 50% PEEP of 16. ABG showed a pO2 of 67 pCO2 of 49 pH of 7.30. Patient is on IV fluid at 1 20 mL/h, up a fall 45 mcg/kg/m, Nimbex at 1.5 mcg/kg/m, fentanyl 0.5 mcg/kg/h, she is off norepinephrine. CBC showed WBC count of 11.8 hemoglobin is 12.2. Hematocrit is 39.4. Electrolytes are normal renal profile is normal. Chest x-ray continues to show bilateral infiltrates, and there is evidence of pneumomediastinum and subcutaneous emphysema. Patient remains on the COVID-19 cocktail, she is on echo from 6 mg IV push daily she is also on L ovenox 40 mg subcu twice a day. Patient is also receiving baricitinib . Patient is also on enteral feedings. Reevaluated today on 03/29/2021, remains in the ICU, intubated and mechanically ventilated. Patient is on assist control rate of 32, FiO2 of 50% tidal volume of 375 PEEP 16, decreased down to 14 today. And increase her FiO2 to 55%. ABG showed a pO2 of 70 pCO2 49 pH of 7.33 WBC count is 16.5 hemoglobin is 12 electrolytes are normal renal profile is normal. Patient is on multiple drips including IV fluid at 120 mL/h and I cut it down to KVO she is on enteral feeding via orogastric tube. Nimbex 2 mcg/kg/m propofol 60 mcg/kg/m fentanyl 0.75 mcg/kg/h. Patient is now off norepinephrine. Chest x-ray continues to show bilateral infiltrates, and worsening subcu emphysema, hence I went ahead and placed 3 different 14-Macedonian catheters, one placed in the left supraclavicular area, one in the right supraclavicular area, and one in the anterior chest wall on the left side. Mostly to decompressive subcutaneous emphysema. These were placed uneventfully, and place and a sterile field. And covered with dressing. Patient is on the COVID-19 cocktail. She is also on baricitinib Decadron 6 mg IV push daily, Lovenox 40 mg subcu twice a day, she is also on Protonix 40 mg IV push daily and zinc. Reevaluated today on 03/30/2021, patient remains in the ICU, intubated and mechanically ventilated. She remains on assist control rate of 32 tidal volume 375 FiO2 60% and I cut it down to 55% PEEP remains at 10. ABG showed a pO2 of 59 pCO2 of 39 pH of 7.44. Chest x-ray showed bilateral infiltrates, persistent subcutaneous emphysema but seems to be less compared to the previous 2 days. No evidence of pneumothorax. Remains on multiple drips including norepinephrine at 0.03 mcg/kg/m, Nimbex at 2 mcg/kg/m, fentanyl at 2.5 mcg/kg/h propofol 50 mcg/kg/m. IV fluid at 20 mL per hour. Patient is on vital AF 26 mL per hour. Chest x-ray again is not showing much of a change. Patient remains on the COVID-19 cocktail including Decadron, Lovenox, Protonix, and she is also on baricitinib Reevaluated today on 03/31/2021, patient remains in the ICU, intubated and mechanically ventilated. She is on assist control rate of 3 to tidal volume 375 FiO2 70% and PEEP at 10 however after reviewing her ABG I recommended increasing the PEEP to 12 and I cut down her FiO2 from 70% to 65%. ABG showed a pO2 of 65 pCO2 of 39 pH of 7.30. Patient remains on Nimbex at 2 mcg/kg/m fentanyl at 2.5 mcg/kg/h propofol at 50 mcg/kg/m. She is also requiring norepinephrine at 0.08 mcg/kg/m, her blood pressure seems to be extremely labile. It is all over the chart. Today I recommended an echocardiogram, I also recommended serum cortisol level on this patient. Her chest x-ray continues to show bilateral infiltrates and subcu emphysema. However the subcu emphysema seems to be regressing. There is no evidence of pneumothorax. WBC count is 11.1 hemoglobin is 11.5 twice a normal renal profile is normal. Transaminases are slightly elevated. Yesterday the patient had positive sputum cultures for staph aureus, it was basically MSSA, hence we discontinued her baricitinib, received a dose of vancomycin, but considering the staph aureus is MSSA, will start the patient on cefepime and di scontinue vancomycin and this was already discontinued yesterday. Progress note dated 04/01/2021. This is a 65-year-old female, admitted to the hospital on March 18. She was minute with a diagnosis of coronavirus associated pneumonia. She came to the intensive care unit on March 25, and was intubated on March 25. She remains on the volume assist control mode, rate 32, tidal volume 375, FiO2 65%, and PEEP of 12. Arterial blood gases show pO2 of 62, pCO2 41, pH is 7.43. She remains o n Nimbex at 2 mcg/kg/m, fentanyl at 2.5 mcg/kg/h, propofol at 50 mcg/kg/m, and norepinephrine at 0.04 mcg/kg/m. In addition, she's getting saline at KVO. Also, she is getting vital AF at 26 mL an hour, which is goal. Today we'll give her some Lasix 60 mg IV push. And, we will reduce her FiO2 from 65-55%. She has developed significant subcutaneous emphysema. There was to methicillin sensitive staph aureus in the sputum. White count 12.5, hemoglobin 10.7, hematocrit 32.7, with a normal platelet count. Sodium 137, potassium 3.8, chlorides 105, CO2 28, anion gap 4, BUN 19, creatinine 0.51. AST 57 with an ALT 109. Albumin 2. Chest x-ray showed bilateral diffuse infiltrates, unchanged, but the subcutaneous emphysema is improved. Objective - Vital Signs Vital signs: Vital Signs Temp 99.6 F 04/01/21 04:00 Pulse 66 04/01/21 07:00 Resp 31 H 04/01/21 07:00 BP 164/79 04/01/21 04:00 Pulse Ox 89 L 04/01/21 07:00 Intake & Output 03/31/21 04/01/21 04/01/21 18:59 06:59 18:59 Intake Total 3994.177 3295.266 21.116 Output Total 1275 1110 Balance -269.713 346.266 21.116 Weight 89.8 kg 89.8 kg Intake: IV 243 296 Sodium Chloride 0.9% 1, 240 260 000 ml @ 20 mls/hr IV . Q24H [facility] Rx#:[id number] pressure bag 3 36 Intake, IV Titration 736.287 668.266 21.116 Amount Cisatracurium 200 mg In 171.693 164.381 Sodium Chloride 0.9% 180 ml @ 1 MCG/KG/MIN 4.218 mls/hr IV .Q24H [facility] Rx#: [id number] Norepinephrine 32 mg In 0 47.383 21.116 Sodium Chloride 0.9% 218 ml @ 0.05 MCG/KG/MIN 1. 828 mls/hr IV .Q24H [facility] Rx#:[id number] fentaNYL (PF). 1,000 mcg 281.231 186.902 In Sodium Chloride 0.9% 80 ml @ 0.5 MCG/KG/HR 3. 515 mls/hr IV .Q24H [facility] Rx#:[id number] propofoL 1,000 mg In 283.363 269.6 Empty Bag 1 bag @ Titrate IV .Q0M [facility] Rx#: [id number] Tube Feeding 26 312 Other 180 Output: Urine 1275 1110 Other: Voiding Method Indwelling Catheter Indwelling Catheter ABP, PAP, CO, CI - Last Documented Arterial Blood Pressure 113/55 - Exam No acute distress, sedated, and paralyzed, with an orally placed endotracheal tube and NG tube. HEENT examination is grossly unremarkable. Neck supple. Full range of motion. No adenopathy thyromegaly or neck vein distention. Cardiovascular examination reveals regular rhythm rate. S1-S2 normal. No S3 or S4. No discernible murmur noted. Heart sounds are distant. Heart rate 66 bpm. Lungs reveal coarse bilateral rhonchi. Breath sounds equal bilaterally. No wheezes or crackles. Significant subcutaneous emphysema is noted. Abdomen soft bowel sounds are heard. No masses or tenderness. Extremities are intact. No cyanosis clubbing or edema. Skin is without rash or lesion. Neurologic examination cannot be properly assessed as the patient sedated and currently paralyzed. - Labs CBC & Chem 7: 04/01/21 04:20 04/01/21 04:20 Labs: Abnormal Lab Results - Last 24 Hours (Table) 03/31/21 03/31/21 04/01/21 Range/Units 11:50 18:38 02:20 WBC (3.8-10.6) k/uL RBC (3.80-5.40) m/uL Hgb (11.4-16.0) gm/dL Hct (34.0-46.0) % Neutrophils # (1.3-7.7) k/uL ABG pO2 (83-108) mmHg ABG HCO3 (21-25) mmol/L ABG Total CO2 (19-24) mmol/L ABG O2 Saturation (94-97) % BUN (7-17) mg/dL Creatinine (0.52-1.04) mg/dL Glucose (74-99) mg/dL POC Glucose (mg/dL) 225 H 168 H 178 H (75-99) mg/dL Calcium (8.4-10.2) mg/dL AST (14-36) U/L ALT (4-34) U/L Alkaline Phosphatase (38-126) U/L Total Protein (6.3-8.2) g/dL Albumin (3.5-5.0) g/dL 04/01/21 04/01/21 04/01/21 Range/Units 04:20 04:20 05:24 WBC 12.5 H (3.8-10.6) k/uL RBC 3.50 L (3.80-5.40) m/uL Hgb 10.7 L (11.4-16.0) gm/dL Hct 32.7 L (34.0-46.0) % Neutrophils # 10.7 H (1.3-7.7) k/uL ABG pO2 62 L (83-108) mmHg ABG HCO3 27 H (21-25) mmol/L ABG Total CO2 29 H (19-24) mmol/L ABG O2 Saturation 92.4 L (94-97) % BUN 19 H (7-17) mg/dL Creatinine 0.51 L (0.52-1.04) mg/dL Glucose 159 H (74-99) mg/dL POC Glucose (mg/dL) (75-99) mg/dL Calcium 8.1 L (8.4-10.2) mg/dL AST 57 H (14-36) U/L ALT 109 H (4-34) U/L Alkaline Phosphatase 194 H (38-126) U/L Total Protein 4.5 L (6.3-8.2) g/dL Albumin 2.0 L (3.5-5.0) g/dL 04/01/21 04/01/21 Range/Units 05:37 11:31 WBC (3.8-10.6) k/uL RBC (3.80-5.40) m/uL Hgb (11.4-16.0) gm/dL Hct (34.0-46.0) % Neutrophils # (1.3-7.7) k/uL ABG pO2 (83-108) mmHg ABG HCO3 (21-25) mmol/L ABG Total CO2 (19-24) mmol/L ABG O2 Saturation (94-97) % BUN (7-17) mg/dL Creatinine (0.52-1.04) mg/dL Glucose (74-99) mg/dL POC Glucose (mg/dL) 198 H 175 H (75-99) mg/dL Calcium (8.4-10.2) mg/dL AST (14-36) U/L ALT (4-34) U/L Alkaline Phosphatase (38-126) U/L Total Protein (6.3-8.2) g/dL Albumin (3.5-5.0) g/dL Assessment and Plan Assessment: Acute hypoxemic respiratory failure secondary to coronavirus associated pneumonia, status post intubation with mechanical ventilation on 03/25/2021. CT angiogram was negative for pulmonary embolism. Elevated inflammatory marker secondary to coronavirus infection. Type 2 diabetes mellitus. Hypothyroidism. Hyperlipidemia. Pneumomediastinum with subcutaneous emphysema. Plan: Plan dated 04/01/2021. The patient's antibiotics can be D escalated. She has methicillin sensitive staph aureus in the sputum. In addition, the FiO2 was reduced down to 55% from 65%. The patient continues on tube feeds at 26 mL an hour, which is goal. Because of patient's way ahead on fluids, she gets Lasix 60 mg IV push. We'll continue to monitor that. The patient continues on GI prophylaxis, and corticosteroids. Additional recommendations and suggestions are forthcoming. Prognosis is guarded. Time with Patient: Greater than 30
[2021-04-01] MEDS: AMPICILLIN-SULBACTAM 1.5 GM in SODIUM CHLORIDE 0.9% 50 ML IVPB SCH ×2 (14:18→17:52)
--- NOTE | 2021-04-01 15:51 | P.PN ---
Subjective Progress Note Date: 04/01/21 This is 65-year-old female with past medical history of diabetes mellitus, hyperlipidemia, hypertension, osteoarthritis, no smoking history presented to the ER with worsening dyspnea 10 days accompanied by loss of appetite, fatigue, cough. Denies fevers or sweats. Denies muscle aches. On admission patient was febrile with temperature 99.1, WBC 5.2, tachycardic, cachectic, maintaining O2 sats of 88% on room air. Patient's respiratory status has further worsened and currently maintaining O2 sats of mid 90s on 3 L nasal cannula. Displays exertional dyspnea after ambulating from BR. Coronavirus PCR positive. D-dimer 0.39, LDH 1108, CRP 18.6. Chest x-ray reporting reticular and some minimal patc hy opacity's over bilateral lower lungs, left greater than right. Hemoglobin 14.5, platelets 287. Sodium currently 132, potassium 5, BUN 27, creatinine 0.77. A.m. Accu-Chek currently being obtained, the blood sugar 231 last night. Denies chest pain, palpitations. 03/20/2021 continues on covid cocktail .oxygen requirements worsened, currently requiring 10 L high flow nasal cannula to maintain O2 sats in the high 80s to low 90s. Reports had coughing spells last night but no cough this morning .exertional shortness of breath .Denies chest pain, palpitations. Afebrile. Ambulatory markers improving with the exception of mild increase in d- dimer.Calcitonin minimally elevated, 0.12. BMP pending. Blood sugars better improving. 03/21/21 maintaining O2 sats in the low 90s on 2 L nasal cannula. Reports minimal nonproductive cough, exertional shortness of breath, loose stools. Blood sugars controlled .Denies chest pain, palpitations. Denies diaphoresis. Afebrile. 03/22/2021 O2 requirements worsened, currently requiring 15 L high flow. Anxious. Current the afebrile, T-max 99.8, labs pending. Yesterday consuming 50-75% of diet. This morning some hypoglycemia, currently 85. Hemoglobin A1c 6.5 03/25/2021 respiratory status worsened .BiPAP at 100%, maintaining O2 sats of m id 80s, transferred to ICU. Anxious. Precedex initiated. Labs pending. 03/26/21 remains vent dependent with FiO2 70/+14 of PEEP. Maintained on diprovan, fentanyl and Pneumovax. Afebrile, normal WBC. Chest x-ray reporting diffuse interstitial pattern of bilateral infiltrates and pleural effusion. 03/27/2021 remains vent dependent, FiO2 60%/+16 of PEEP. Chest x-ray reporting diffuse pleural-parenchymal changes.Maintained on Nimbex, Levophed, fentanyl, diprovan. Continues on covid cocktail. 03/28/2021 FiO2 50%/+16 of PEEP. Chest x-ray reporting extensive subcutaneous emphysema with no change in bibasilar opacities. Levophed weaned off. Maintained on diprovan, Nimbex, fentanyl drips. Covid cocktail. Afebrile, T-max 99.9, WBC 11.8. BUN 36, creatinine 0.58. Blood sugars in the 200s. 03/29/2021 FiO2 50%/+16 of PEEP. Maintained on Levophed ,Nimbex and fentanyl drips. Chest x-ray reporting continued bilateral infiltrates, worsening subcutaneous emphysema. 3 catheters placed in left anterior chest wall right and left supraclavicular areas for decompression.Afebrile, T-max 99.4. 04/01/2021 vent dependent,FIO2 55%/+12 Peep. Maintained on Nimbex, Levophed diprovan and fentanyl drips. Chest x-ray reporting continued bilateral peripheral basilar Covid pneumonia without significant change, improving bilateral subcutaneous emphysema. Afebrile, T-max 99.1, WBC 12.5, Sputum reporting MSSA Evaluated by cardiology, echo ordered and pending. Objective - Vital Signs Vital signs: Vital Signs Temp 99.6 F 04/01/21 04:00 Pulse 54 L 04/01/21 15:00 Resp 32 H 04/01/21 15:00 BP 104/66 04/01/21 12:00 Pulse Ox 96 04/01/21 15:00 Intake & Output 03/31/21 04/01/21 04/01/21 18:59 06:59 18:59 Intake Total 4340.018 7737.266 201.116 Output Total 1275 1110 1450 Balance -269.713 346.266 -1248.884 Weight 89.8 kg 89.8 kg Intake: IV 243 296 80 Sodium Chloride 0.9% 1, 240 260 80 000 ml @ 20 mls/hr IV . Q24H [facility] Rx#:[id number] pressure bag 3 36 Intake, IV Titration 736.287 668.266 121.116 Amount Cisatracurium 200 mg In 171.693 164.381 Sodium Chloride 0.9% 180 ml @ 1 MCG/KG/MIN 4.218 mls/hr IV .Q24H [facility] Rx#: [id number] Norepinephrine 32 mg In 0 47.383 21.116 Sodium Chloride 0.9% 218 ml @ 0.05 MCG/KG/MIN 1. 828 mls/hr IV .Q24H [facility] Rx#:[id number] fentaNYL (PF). 1,000 mcg 281.231 186.902 100 In Sodium Chloride 0.9% 80 ml @ 0.5 MCG/KG/HR 3. 515 mls/hr IV .Q24H [facility] Rx#:[id number] propofoL 1,000 mg In 283.363 269.6 Empty Bag 1 bag @ Titrate IV .Q0M [facility] Rx#: [id number] Tube Feeding 26 312 Other 180 Output: Urine 1275 1110 1450 Other: Voiding Method Indwelling Catheter Indwelling Catheter ABP, PAP, CO, CI - Last Documented Arterial Blood Pressure 96/51 - Exam Limited PHYSICAL EXAM on a intubated covid patient: VITAL SIGNS: As above GENERAL: Maintained on mechanical ventilator, sedated and on paralytics CARDIOVASCULAR: S1, S2 regular. Telemetry sinus rhythm ABD: Nondistended NERVOUS SYSTEM: Unable to evaluate, patient sedated and on paralytics - Labs CBC & Chem 7: 04/01/21 04:20 04/01/21 04:20 Labs: Abnormal Lab Results - Last 24 Hours (Table) 03/31/21 04/01/21 04/01/21 Range/Units 18:38 02:20 04:20 WBC 12.5 H (3.8-10.6) k/uL RBC 3.50 L (3.80-5.40) m/uL Hgb 10.7 L (11.4-16.0) gm/dL Hct 32.7 L (34.0-46.0) % Neutrophils # 10.7 H (1.3-7.7) k/uL ABG pO2 (83-108) mmHg ABG HCO3 (21-25) mmol/L ABG Total CO2 (19-24) mmol/L ABG O2 Saturation (94-97) % BUN (7-17) mg/dL Creatinine (0.52-1.04) mg/dL Glucose (74-99) mg/dL POC Glucose (mg/dL) 168 H 178 H (75-99) mg/dL Calcium (8.4-10.2) mg/dL AST (14-36) U/L ALT (4-34) U/L Alkaline Phosphatase (38-126) U/L Total Protein (6.3-8.2) g/dL Albumin (3.5-5.0) g/dL 04/01/21 04/01/21 04/01/21 Range/Units 04:20 05:24 05:37 WBC (3.8-10.6) k/uL RBC (3.80-5.40) m/uL Hgb (11.4-16.0) gm/dL Hct (34.0-46.0) % Neutrophils # (1.3-7.7) k/uL ABG pO2 62 L (83-108) mmHg ABG HCO3 27 H (21-25) mmol/L ABG Total CO2 29 H (19-24) mmol/L ABG O2 Saturation 92.4 L (94-97) % BUN 19 H (7-17) mg/dL Creatinine 0.51 L (0.52-1.04) mg/dL Glucose 159 H (74-99) mg/dL POC Glucose (mg/dL) 198 H (75-99) mg/dL Calcium 8.1 L (8.4-10.2) mg/dL AST 57 H (14-36) U/L ALT 109 H (4-34) U/L Alkaline Phosphatase 194 H (38-126) U/L Total Protein 4.5 L (6.3-8.2) g/dL Albumin 2.0 L (3.5-5.0) g/dL 04/01/21 Range/Units 11:31 WBC (3.8-10.6) k/uL RBC (3.80-5.40) m/uL Hgb (11.4-16.0) gm/dL Hct (34.0-46.0) % Neutrophils # (1.3-7.7) k/uL ABG pO2 (83-108) mmHg ABG HCO3 (21-25) mmol/L ABG Total CO2 (19-24) mmol/L ABG O2 Saturation (94-97) % BUN (7-17) mg/dL Creatinine (0.52-1.04) mg/dL Glucose (74-99) mg/dL POC Glucose (mg/dL) 175 H (75-99) mg/dL Calcium (8.4-10.2) mg/dL AST (14-36) U/L ALT (4-34) U/L Alkaline Phosphatase (38-126) U/L Total Protein (6.3-8.2) g/dL Albumin (3.5-5.0) g/dL Assessment and Plan Assessment: Acute COVID-19 pneumonia Acute hypoxic respiratory failure secondary to the above, mechanical vent d ependent Subcutaneous emphysema and pneumomediastinum secondary to Covid., Status post 3 decompression catheters placed. Hyponatremia, mild, resolved Diabetes mellitus, hyperglycemic hemoglobin A1c 6.5, in addition to steroid contribution Hypothyroidism Hyperlipidemia Plan: Continue on current medication regime ,monitoring and symptomatic treatment. Covid cocktail. ICU management as per oil expeller.Prognosis guarded given multiple complex medical issues. The impression and plan of care has been dictated as directed. : I performed a history and examination of this patient, discussed the same with the dictator. I agree with the dictator's note ,documented as a scribe. Any additional findings or plans will be noted.
[2021-04-01 17:40] LABS: Glucose,Whole Blood 202 mg/dL (75-99)
[2021-04-01] MEDS: SODIUM CHLORIDE 0.9% 1,000 ML IV SCH (19:58)
[2021-04-01] MEDS: lisinopriL 10 MG TAB PO SCH (20:00)
[2021-04-01] MEDS: ATORVASTATIN 40 MG TAB PO SCH (20:14)
[2021-04-02] MEDS: AMPICILLIN-SULBACTAM 1.5 GM in SODIUM CHLORIDE 0.9% 50 ML IVPB SCH ×5 (00:08→23:32)
[2021-04-02 00:17] LABS: Glucose,Whole Blood 180 mg/dL (75-99)
[2021-04-02] MEDS: INSULIN ASPART (NovoLOG) 100 UNIT/ML VIAL SQ SCH ×5 (00:20→23:32)
[2021-04-02] MEDS: fentaNYL (PF). 1,000 MCG in SODIUM CHLORIDE 0.9% 80 ML IV SCH ×4 (03:20→22:02)
[2021-04-02] MEDS: CISATRACURIUM 200 MG in SODIUM CHLORIDE 0.9% 180 ML IV SCH (03:53)
[2021-04-02] MEDS: SODIUM CHLORIDE 0.9% 1,000 ML IV SCH (03:54)
[2021-04-02 05:00] LABS: ABG HCO3 33 mmol/L (21-25); ABG Oxygen Saturation 92.9 % (94-97); ABG PCO2 34 mmHg (35-45); ABG TCO2 34 mmol/L (19-24); Allen Test Performed? Yes
[2021-04-02] MEDS ORDERED: VANCOMYCIN TROUGH DUE 1 EACH MISC MISCELLANE ONE (05:00)
[2021-04-02 05:03] LABS: ABG PO2 57 mmHg (83-108)
[2021-04-02 05:13] LABS: Glucose,Whole Blood 121 mg/dL (75-99)
[2021-04-02 05:34] LABS: Basophils % (A) 0 %; Eosinophils # (A) 0.1 k/uL (0-0.7); Eosinophils % (A) 1 %; HCT 31.6 % (34.0-46.0); HGB 10.6 gm/dL (11.4-16.0); Lymphocytes # (A) 1.1 k/uL (1.0-4.8); Lymphocytes % (A) 9 %; MCH 30.7 pg (25.0-35.0); MCHC 33.5 g/dL (31.0-37.0); MCV 91.6 fL (80.0-100.0); Mean Platelet Volume 8.6; Monocytes # (A) 0.4 k/uL (0-1.0); Monocytes % (A) 3 %; Neutrophils # (A) 10.4 k/uL (1.3-7.7); Neutrophils % (A) 85 %; Platelet Count 432 k/uL (150-450); RBC 3.44 m/uL (3.80-5.40); RDW 15.1 % (11.5-15.5); WBC 12.2 k/uL (3.8-10.6)
[2021-04-02 06:06] LABS: ALT 110 U/L (4-34); AST 76 U/L (14-36); African American GFR (CKD) >90 (>60 ml/min/1.73 sqM); Albumin 2.1 g/dL (3.5-5.0); Alkaline Phosphatase 202 U/L (38-126); Anion Gap 3 mmol/L; Blood Urea Nitrogen 21 mg/dL (7-17); Calcium 8.2 mg/dL (8.4-10.2); Carbon Dioxide 31 mmol/L (22-30); Chloride 102 mmol/L (98-107); Glucose 120 mg/dL (74-99); LDH 1050 U/L (313-618); Non-African American GFR(CKD) >90 (>60 ml/min/1.73 sqM); Potassium 3.5 mmol/L (3.5-5.1); Sodium 136 mmol/L (137-145); Total Bilirubin 0.2 mg/dL (0.2-1.3); Total Protein 4.7 g/dL (6.3-8.2)
[2021-04-02] MEDS: LEVOTHYROXINE 75 MCG TAB PO SCH (06:06)
[2021-04-02] MEDS: INSULIN DETEMIR (LEVEMIR) 100 UNIT/ML SYR SQ SCH (06:08)
[2021-04-02] MEDS: POTASSIUM CHLORIDE 20 MEQ in WATER FOR INJECTION 1 100ML.BAG IVPB SCH ×2 (06:47→09:15)
[2021-04-02] MEDS: ENOXAPARIN 40 MG/0.4 ML SYRINGE SQ SCH (08:47)
[2021-04-02] MEDS: CHLORHEXIDINE GLUCONATE 15 ML CUP MUCOUS MEM SCH ×2 (08:48→20:11)
[2021-04-02] MEDS: CHOLECALCIFEROL 25 MCG (1000 IU) TABLET PO SCH (08:48)
[2021-04-02] MEDS: PANTOPRAZOLE 40 MG/10 ML VIAL IVP SCH (08:48)
[2021-04-02] MEDS: ASCORBIC ACID 500 MG TAB PO SCH (08:48)
[2021-04-02] MEDS: DEXAMETHASONE SOD PHOSPHATE 10 MG/ML 1 ML VIAL IVP SCH (08:48)
[2021-04-02] MEDS: ZINC SULFATE 220 MG CAP PO SCH (08:48)
[2021-04-02] MEDS: ARTIFICIAL TEARS-HYPROMELLOSE DROPS 15 ML BTL BOTH EYES SCH ×4 (08:49→20:12)
--- NOTE | 2021-04-02 08:55 | XR ---
EXAMINATION TYPE: XR chest 1V portable DATE OF EXAM: 04/02/2021 COMPARISON: Chest x-ray 04/01/2021 HISTORY: Covid pneumonia, intubated TECHNIQUE: Single frontal view of the chest is obtained. FINDINGS: Endotracheal tube, left subclavian central venous catheter are again noted and overlying a ppropriate positions, NG tube is stable, distal tip not included on exam. Bilateral airspace disease is again seen. Subcutaneous emphysema appears improved. IMPRESSION: Findings consistent with Covid pneumonia.
[2021-04-02] MEDS: ALBUTEROL HFA INHALER INHALATION SCH ×4 (09:19→20:05)
--- NOTE | 2021-04-02 09:50 | P.PN ---
Subjective Progress Note Date: 04/02/21 Principal diagnosis: Coronavirus associated pneumonia. Reevaluated today on 03/27/2021, remains in the ICU intubated and mechanically ventilated. She is presently on assist control rate of 3 to tidal volume 375 PEEP is 16, FiO2 60%. ABG showed a pO2 of 67 pCO2 44 pH of 7.30. Hence I cut down her FiO2 to 55%. Patient remains on propofol at 40 mcg/kg/m norepinephrine at 0.05 mcg/kg/m Nimbex at 1.5 mcg/kg/ minute, and fentanyl 0.5 mcg/kg/h. Patient remains sedated and paralyzed, her ABG this morning showed a pO2 of 67 pCO2 of 44 pH of 7.30, FiO2 decreased to 55%. However as I was dictating this note, I was notified by the nurse that she developed subcu emphysema, and I'm recommending a stat chest x-ray, to determine if the patient has a new onset normal mediastinum or possibly a pneumothorax. Chest x-ray is pending at the time of this dictation. A shunt remains on enteral feedings. She is requiring a small dose of norepinephrine for hemodynamic instability. Reevaluated today on 03/28/2021, patient remains in the ICU, intubated and mechanically ventilated. Patient is on assist control rate of 32 volume of 375 FiO2 50% PEEP of 16. ABG showed a pO2 of 67 pCO2 of 49 pH of 7.30. Patient is on IV fluid at 1 20 mL/h, up a fall 45 mcg/kg/m, Nimbex at 1.5 mcg/kg/m, fentanyl 0.5 mcg/kg/h, she is off norepinephrine. CBC showed WBC count of 11.8 hemoglobin is 12.2. Hematocrit is 39.4. Electrolytes are normal renal profile is normal. Chest x-ray continues to show bilateral infiltrates, and there is evidence of pneumomediastinum and subcutaneous emphysema. Patient remains on the COVID-19 cocktail, she is on echo from 6 mg IV push daily she is also on L ovenox 40 mg subcu twice a day. Patient is also receiving baricitinib . Patient is also on enteral feedings. Reevaluated today on 03/29/2021, remains in the ICU, intubated and mechanically ventilated. Patient is on assist control rate of 32, FiO2 of 50% tidal volume of 375 PEEP 16, decreased down to 14 today. And increase her FiO2 to 55%. ABG showed a pO2 of 70 pCO2 49 pH of 7.33 WBC count is 16.5 hemoglobin is 12 electrolytes are normal renal profile is normal. Patient is on multiple drips including IV fluid at 120 mL/h and I cut it down to KVO she is on enteral feeding via orogastric tube. Nimbex 2 mcg/kg/m propofol 60 mcg/kg/m fentanyl 0.75 mcg/kg/h. Patient is now off norepinephrine. Chest x-ray continues to show bilateral infiltrates, and worsening subcu emphysema, hence I went ahead and placed 3 different 14-Bulgarian catheters, one placed in the left supraclavicular area, one in the right supraclavicular area, and one in the anterior chest wall on the left side. Mostly to decompressive subcutaneous emphysema. These were placed uneventfully, and place and a sterile field. And covered with dressing. Patient is on the COVID-19 cocktail. She is also on baricitinib Decadron 6 mg IV push daily, Lovenox 40 mg subcu twice a day, she is also on Protonix 40 mg IV push daily and zinc. Reevaluated today on 03/30/2021, patient remains in the ICU, intubated and mechanically ventilated. She remains on assist control rate of 32 tidal volume 375 FiO2 60% and I cut it down to 55% PEEP remains at 10. ABG showed a pO2 of 59 pCO2 of 39 pH of 7.44. Chest x-ray showed bilateral infiltrates, persistent subcutaneous emphysema but seems to be less compared to the previous 2 days. No evidence of pneumothorax. Remains on multiple drips including norepinephrine at 0.03 mcg/kg/m, Nimbex at 2 mcg/kg/m, fentanyl at 2.5 mcg/kg/h propofol 50 mcg/kg/m. IV fluid at 20 mL per hour. Patient is on vital AF 26 mL per hour. Chest x-ray again is not showing much of a change. Patient remains on the COVID-19 cocktail including Decadron, Lovenox, Protonix, and she is also on baricitinib Reevaluated today on 03/31/2021, patient remains in the ICU, intubated and mechanically ventilated. She is on assist control rate of 3 to tidal volume 375 FiO2 70% and PEEP at 10 however after reviewing her ABG I recommended increasing the PEEP to 12 and I cut down her FiO2 from 70% to 65%. ABG showed a pO2 of 65 pCO2 of 39 pH of 7.30. Patient remains on Nimbex at 2 mcg/kg/m fentanyl at 2.5 mcg/kg/h propofol at 50 mcg/kg/m. She is also requiring norepinephrine at 0.08 mcg/kg/m, her blood pressure seems to be extremely labile. It is all over the chart. Today I recommended an echocardiogram, I also recommended serum cortisol level on this patient. Her chest x-ray continues to show bilateral infiltrates and subcu emphysema. However the subcu emphysema seems to be regressing. There is no evidence of pneumothorax. WBC count is 11.1 hemoglobin is 11.5 twice a normal renal profile is normal. Transaminases are slightly elevated. Yesterday the patient had positive sputum cultures for staph aureus, it was basically MSSA, hence we discontinued her baricitinib, received a dose of vancomycin, but considering the staph aureus is MSSA, will start the patient on cefepime and di scontinue vancomycin and this was already discontinued yesterday. Progress note dated 04/01/2021. This is a 65-year-old female, admitted to the hospital on March 18. She was minute with a diagnosis of coronavirus associated pneumonia. She came to the intensive care unit on March 25, and was intubated on March 25. She remains on the volume assist control mode, rate 32, tidal volume 375, FiO2 65%, and PEEP of 12. Arterial blood gases show pO2 of 62, pCO2 41, pH is 7.43. She remains o n Nimbex at 2 mcg/kg/m, fentanyl at 2.5 mcg/kg/h, propofol at 50 mcg/kg/m, and norepinephrine at 0.04 mcg/kg/m. In addition, she's getting saline at KVO. Also, she is getting vital AF at 26 mL an hour, which is goal. Today we'll give her some Lasix 60 mg IV push. And, we will reduce her FiO2 from 65-55%. She has developed significant subcutaneous emphysema. There was to methicillin sensitive staph aureus in the sputum. White count 12.5, hemoglobin 10.7, hematocrit 32.7, with a normal platelet count. Sodium 137, potassium 3.8, chlorides 105, CO2 28, anion gap 4, BUN 19, creatinine 0.51. AST 57 with an ALT 109. Albumin 2. Chest x-ray showed bilateral diffuse infiltrates, unchanged, but the subcutaneous emphysema is improved. Progress note dated 04/02/2021. 65-year-old female, admitted to the hospital on March 18. She was admitted with a diagnosis of coronavirus associated pneumonia. She came to the intensive care unit on March 25, and was intubated on March 25. She remains on the ventilator, volume assist control mode. Current rate is 32, tidal volume is 375, FiO2 50%, and PEEP of 12. The blood gases show pO2 of 57, pCO2 of 34, and pH of 7.6. The PEEP will be increased to 15, and the rate will be dropped from 32 down to 26 breaths per minute. This should help the alkalosis. The patient is currently on Nimbex at 2 mcg/kg/m, propofol at 50 mcg/kg/m, and fentanyl at 2.5 mcg/kg/h. The patient's getting saline at 20 mL an hour, and vital AF at 22 mL an hour. White count 12.2, hemoglobin 10.6, hematocrit 31.6, and platelet count 432,000. D-dimer is 1.1. Sodium 136, potassium 3.5, chlorides 102, CO2 31, anion gap 3, BUN 21, and creatinine 0.5. The patient's LDH is 1050. C- reactive protein is 20. The Staphylococcus in the sputum has methicillin sensitive. Chest x-ray shows diffuse bilateral infiltrates, consistent with coronavirus associated pneumonia. Objective - Vital Signs Vital signs: Vital Signs Temp 98.4 F 04/02/21 08:00 Pulse 62 04/02/21 09:00 Resp 26 H 04/02/21 09:00 BP 140/82 04/02/21 08:00 Pulse Ox 89 L 04/02/21 09:00 Intake & Output 04/01/21 04/02/21 04/02/21 18:59 06:59 18:59 Intake Total 664.830 7301.202 340.279 Output Total 3370 780 140 Balance -2841.878 472.202 200.279 Weight 89.8 kg 88 kg Intake: IV 220 273 69 Sodium Chloride 0.9% 1, 220 240 60 000 ml @ 20 mls/hr IV . Q24H [facility] Rx#:[id number] pressure bag 33 9 Intake, IV Titration 308.122 587.202 145.279 Amount Cisatracurium 200 mg In 179.849 45.279 Sodium Chloride 0.9% 180 ml @ 1 MCG/KG/MIN 4.218 mls/hr IV .Q24H [facility] Rx#: [id number] Norepinephrine 32 mg In 21.116 18.986 Sodium Chloride 0.9% 218 ml @ 0.05 MCG/KG/MIN 1. 828 mls/hr IV .Q24H [facility] Rx#:[id number] fentaNYL (PF). 1,000 mcg 187.006 188.367 100 In Sodium Chloride 0.9% 80 ml @ 0.5 MCG/KG/HR 3. 515 mls/hr IV .Q24H [facility] Rx#:[id number] propofoL 1,000 mg In 100 200 Empty Bag 1 bag @ Titrate IV .Q0M [facility] Rx#: [id number] Tube Feeding 242 66 Other 150 60 Output: Urine 3370 780 140 Other: Voiding Method Indwelling Catheter Indwelling Catheter Indwelling Catheter ABP, PAP, CO, CI - Last Documented Arterial Blood Pressure 109/54 - Exam No acute distress, sedated, and paralyzed, with an orally placed endotracheal tube and NG tube. HEENT examination is grossly unremarkable. Neck supple. Full range of motion. No adenopathy thyromegaly or neck vein distention. Cardiovascular examination reveals regular rhythm rate. S1-S2 normal. No S3 or S4. No discernible murmur noted. Heart sounds are distant. Heart rate 62 bpm. Lungs reveal coarse bilateral rhonchi. Breath sounds equal bilaterally. No wheezes or crackles. Significant subcutaneous emphysema is noted. Abdomen soft bowel sounds are heard. No masses or tenderness. Extremities are intact. No cyanosis clubbing or edema. Skin is without rash or lesion. Neurologic examination cannot be properly assessed as the patient sedated and currently paralyzed. - Labs CBC & Chem 7: 04/02/21 05:10 04/02/21 05:10 Labs: Abnormal Lab Results - Last 24 Hours (Table) 04/01/21 04/01/21 04/02/21 Range/Units 11:31 17:38 00:16 WBC (3.8-10.6) k/uL RBC (3.80-5.40) m/uL Hgb (11.4-16.0) gm/dL Hct (34.0-46.0) % Neutrophils # (1.3-7.7) k/uL D-Dimer (<0.60) mg/L FEU ABG pH (7.35-7.45) ABG pCO2 (35-45) mmHg ABG pO2 (83-108) mmHg ABG HCO3 (21-25) mmol/L ABG Total CO2 (19-24) mmol/L ABG O2 Saturation (94-97) % Sodium (137-145) mmol/L Carbon Dioxide (22-30) mmol/L BUN (7-17) mg/dL Creatinine (0.52-1.04) mg/dL Glucose (74-99) mg/dL POC Glucose (mg/dL) 175 H 202 H 180 H (75-99) mg/dL Calcium (8.4-10.2) mg/dL AST (14-36) U/L ALT (4-34) U/L Alkaline Phosphatase (38-126) U/L Lactate Dehydrogenase (313-618) U/L C-Reactive Protein (<1.0) mg/dL Total Protein (6.3-8.2) g/dL Albumin (3.5-5.0) g/dL 04/02/21 04/02/21 04/02/21 Range/Units 04:53 05:10 05:10 WBC 12.2 H (3.8-10.6) k/uL RBC 3.44 L (3.80-5.40) m/uL Hgb 10.6 L (11.4-16.0) gm/dL Hct 31.6 L (34.0-46.0) % Neutrophils # 10.4 H (1.3-7.7) k/uL D-Dimer (<0.60) mg/L FEU ABG pH 7.60 H* (7.35-7.45) ABG pCO2 34 L (35-45) mmHg ABG pO2 57 L* (83-108) mmHg ABG HCO3 33 H (21-25) mmol/L ABG Total CO2 34 H (19-24) mmol/L ABG O2 Saturation 92.9 L (94-97) % Sodium 136 L (137-145) mmol/L Carbon Dioxide 31 H (22-30) mmol/L BUN 21 H (7-17) mg/dL Creatinine 0.50 L (0.52-1.04) mg/dL Glucose 120 H (74-99) mg/dL POC Glucose (mg/dL) (75-99) mg/dL Calcium 8.2 L (8.4-10.2) mg/dL AST 76 H (14-36) U/L ALT 110 H (4-34) U/L Alkaline Phosphatase 202 H (38-126) U/L Lactate Dehydrogenase 1050 H (313-618) U/L C-Reactive Protein 20.0 H (<1.0) mg/dL Total Protein 4.7 L (6.3-8.2) g/dL Albumin 2.1 L (3.5-5.0) g/dL 04/02/21 04/02/21 Range/Units 05:10 05:11 WBC (3.8-10.6) k/uL RBC (3.80-5.40) m/uL Hgb (11.4-16.0) gm/dL Hct (34.0-46.0) % Neutrophils # (1.3-7.7) k/uL D-Dimer 1.10 H (<0.60) mg/L FEU ABG pH (7.35-7.45) ABG pCO2 (35-45) mmHg ABG pO2 (83-108) mmHg ABG HCO3 (21-25) mmol/L ABG Total CO2 (19-24) mmol/L ABG O2 Saturation (94-97) % Sodium (137-145) mmol/L Carbon Dioxide (22-30) mmol/L BUN (7-17) mg/dL Creatinine (0.52-1.04) mg/dL Glucose (74-99) mg/dL POC Glucose (mg/dL) 121 H (75-99) mg/dL Calcium (8.4-10.2) mg/dL AST (14-36) U/L ALT (4-34) U/L Alkaline Phosphatase (38-126) U/L Lactate Dehydrogenase (313-618) U/L C-Reactive Protein (<1.0) mg/dL Total Protein (6.3-8.2) g/dL Albumin (3.5-5.0) g/dL Assessment and Plan Assessment: Acute hypoxemic respiratory failure secondary to coronavirus associated pneumonia, status post intubation with mechanical ventilation on 03/25/2021. CT angiogram was negative for pulmonary embolism. Elevated inflammatory marker secondary to coronavirus infection. Type 2 diabetes mellitus. Hypothyroidism. Hyperlipidemia. Pneumomediastinum with subcutaneous emphysema. Plan: Plan dated 04/01/2021. The patient's antibiotics can be D escalated. She has methicillin sensitive staph aureus in the sputum. In addition, the FiO2 was reduced down to 55% from 65%. The patient continues on tube feeds at 26 mL an hour, which is goal. Because of patient's way ahead on fluids, she gets Lasix 60 mg IV push. We'll continue to monitor that. The patient continues on GI prophylaxis, and corticosteroids. Additional recommendations and suggestions are forthcoming. Prognosis is guarded. Plan dated 04/02/2021. The patient's antibiotics should be de-escalated if not or ready done. The sputum staph, is methicillin sensitive. The patient's respiratory rate will be decreased from 32, down to 26 breaths per minute. The PEEP will be increased from 12 to 15 given the lower PaO2. We will attempt to wean the patient off the Nimbex today. The patient will remain on propofol and fentanyl for the time being. The patient has been placed on Unasyn. We will continue to follow and make recommendations where appropriate. The patient remains on vitamins, as well as Decadron, and Lovenox. Time with Patient: Greater than 30
[2021-04-02 13:07] LABS: Glucose,Whole Blood 183 mg/dL (75-99)
[2021-04-02] MEDS: NOREPINEPHRINE 32 MG in SODIUM CHLORIDE 0.9% 218 ML IV SCH (13:12)
--- NOTE | 2021-04-02 16:27 | P.PN ---
Subjective Progress Note Date: 04/02/21 This is 65-year-old female with past medical history of diabetes mellitus, hyperlipidemia, hypertension, osteoarthritis, no smoking history presented to the ER with worsening dyspnea 10 days accompanied by loss of appetite, fatigue, cough. Denies fevers or sweats. Denies muscle aches. On admission patient was febrile with temperature 99.1, WBC 5.2, tachycardic, cachectic, maintaining O2 sats of 88% on room air. Patient's respiratory status has further worsened and currently maintaining O2 sats of mid 90s on 3 L nasal cannula. Displays exertional dyspnea after ambulating from BR. Coronavirus PCR positive. D-dimer 0.39, LDH 1108, CRP 18.6. Chest x-ray reporting reticular and some minimal patc hy opacity's over bilateral lower lungs, left greater than right. Hemoglobin 14.5, platelets 287. Sodium currently 132, potassium 5, BUN 27, creatinine 0.77. A.m. Accu-Chek currently being obtained, the blood sugar 231 last night. Denies chest pain, palpitations. 03/20/2021 continues on covid cocktail .oxygen requirements worsened, currently requiring 10 L high flow nasal cannula to maintain O2 sats in the high 80s to low 90s. Reports had coughing spells last night but no cough this morning .exertional shortness of breath .Denies chest pain, palpitations. Afebrile. Ambulatory markers improving with the exception of mild increase in d- dimer.Calcitonin minimally elevated, 0.12. BMP pending. Blood sugars better improving. 03/21/21 maintaining O2 sats in the low 90s on 2 L nasal cannula. Reports minimal nonproductive cough, exertional shortness of breath, loose stools. Blood sugars controlled .Denies chest pain, palpitations. Denies diaphoresis. Afebrile. 03/22/2021 O2 requirements worsened, currently requiring 15 L high flow. Anxious. Current the afebrile, T-max 99.8, labs pending. Yesterday consuming 50-75% of diet. This morning some hypoglycemia, currently 85. Hemoglobin A1c 6.5 03/25/2021 respiratory status worsened .BiPAP at 100%, maintaining O2 sats of m id 80s, transferred to ICU. Anxious. Precedex initiated. Labs pending. 03/26/21 remains vent dependent with FiO2 70/+14 of PEEP. Maintained on diprovan, fentanyl and Pneumovax. Afebrile, normal WBC. Chest x-ray reporting diffuse interstitial pattern of bilateral infiltrates and pleural effusion. 03/27/2021 remains vent dependent, FiO2 60%/+16 of PEEP. Chest x-ray reporting diffuse pleural-parenchymal changes.Maintained on Nimbex, Levophed, fentanyl, diprovan. Continues on covid cocktail. 03/28/2021 FiO2 50%/+16 of PEEP. Chest x-ray reporting extensive subcutaneous emphysema with no change in bibasilar opacities. Levophed weaned off. Maintained on diprovan, Nimbex, fentanyl drips. Covid cocktail. Afebrile, T-max 99.9, WBC 11.8. BUN 36, creatinine 0.58. Blood sugars in the 200s. 03/29/2021 FiO2 50%/+16 of PEEP. Maintained on Levophed ,Nimbex and fentanyl drips. Chest x-ray reporting continued bilateral infiltrates, worsening subcutaneous emphysema. 3 catheters placed in left anterior chest wall right and left supraclavicular areas for decompression.Afebrile, T-max 99.4. 04/01/2021 vent dependent,FIO2 55%/+12 Peep. Maintained on Nimbex, Levophed diprovan and fentanyl drips. Chest x-ray reporting continued bilateral peripheral basilar Covid pneumonia without significant change, improving bilateral subcutaneous emphysema. Afebrile, T-max 99.1, WBC 12.5, Sputum reporting MSSA Evaluated by cardiology, echo ordered and pending. 04/02/2021 FiO2 50%/+15 of PEEP. Chest x-ray reporting bilateral airspace disease consistent with Covid pneumonia, improving subcutaneous emphysema. Maintained on diprovan, fentanyl, Nimbex. Levophed off and on throughout the night, currently off. Echo pending. Currently afebrile, T-max 99.1, WBC 12.2. D-dimer decreased to 1.1, LDH and CRP increased. Objective - Vital Signs Vital signs: Vital Signs Temp 98.3 F 04/02/21 12:00 Pulse 74 04/02/21 15:00 Resp 26 H 04/02/21 15:00 BP 134/73 04/02/21 12:00 Pulse Ox 95 04/02/21 15:00 Intake & Output 04/01/21 04/02/21 04/02/21 18:59 06:59 18:59 Intake Total 394.850 9855.202 911.050 Output Total 3370 780 485 Balance -2841.878 472.202 426.050 Weight 89.8 kg 88 kg Intake: IV 220 273 207 Sodium Chloride 0.9% 1, 220 240 180 000 ml @ 20 mls/hr IV . Q24H [facility] Rx#:[id number] pressure bag 33 27 Intake, IV Titration 308.122 587.202 386.050 Amount Cisatracurium 200 mg In 179.849 86.050 Sodium Chloride 0.9% 180 ml @ 1 MCG/KG/MIN 4.218 mls/hr IV .Q24H [facility] Rx#: [id number] Norepinephrine 32 mg In 21.116 18.986 Sodium Chloride 0.9% 218 ml @ 0.05 MCG/KG/MIN 1. 828 mls/hr IV .Q24H [facility] Rx#:[id number] fentaNYL (PF). 1,000 mcg 187.006 188.367 200 In Sodium Chloride 0.9% 80 ml @ 0.5 MCG/KG/HR 3. 515 mls/hr IV .Q24H [facility] Rx#:[id number] propofoL 1,000 mg In 100 200 100 Empty Bag 1 bag @ Titrate IV .Q0M [facility] Rx#: [id number] Tube Feeding 242 198 Other 150 120 Output: Urine 3370 780 485 Other: Voiding Method Indwelling Catheter Indwelling Catheter Indwelling Catheter ABP, PAP, CO, CI - Last Documented Arterial Blood Pressure 119/56 - Exam Limited PHYSICAL EXAM on a intubated covid patient: VITAL SIGNS: As above GENERAL: Maintained on mechanical ventilator, sedated and on paralytics CARDIOVASCULAR: S1, S2 regular. Telemetry sinus rhythm ABD: Nondistended NERVOUS SYSTEM: Unable to evaluate, patient sedated and on paralytics - Labs CBC & Chem 7: 04/02/21 05:10 04/02/21 05:10 Labs: Abnormal Lab Results - Last 24 Hours (Table) 04/01/21 04/02/21 04/02/21 Range/Units 17:38 00:16 04:53 WBC (3.8-10.6) k/uL RBC (3.80-5.40) m/uL Hgb (11.4-16.0) gm/dL Hct (34.0-46.0) % Neutrophils # (1.3-7.7) k/uL D-Dimer (<0.60) mg/L FEU ABG pH 7.60 H* (7.35-7.45) ABG pCO2 34 L (35-45) mmHg ABG pO2 57 L* (83-108) mmHg ABG HCO3 33 H (21-25) mmol/L ABG Total CO2 34 H (19-24) mmol/L ABG O2 Saturation 92.9 L (94-97) % Sodium (137-145) mmol/L Carbon Dioxide (22-30) mmol/L BUN (7-17) mg/dL Creatinine (0.52-1.04) mg/dL Glucose (74-99) mg/dL POC Glucose (mg/dL) 202 H 180 H (75-99) mg/dL Calcium (8.4-10.2) mg/dL AST (14-36) U/L ALT (4-34) U/L Alkaline Phosphatase (38-126) U/L Lactate Dehydrogenase (313-618) U/L C-Reactive Protein (<1.0) mg/dL Total Protein (6.3-8.2) g/dL Albumin (3.5-5.0) g/dL 04/02/21 04/02/21 04/02/21 Range/Units 05:10 05:10 05:10 WBC 12.2 H (3.8-10.6) k/uL RBC 3.44 L (3.80-5.40) m/uL Hgb 10.6 L (11.4-16.0) gm/dL Hct 31.6 L (34.0-46.0) % Neutrophils # 10.4 H (1.3-7.7) k/uL D-Dimer 1.10 H (<0.60) mg/L FEU ABG pH (7.35-7.45) ABG pCO2 (35-45) mmHg ABG pO2 (83-108) mmHg ABG HCO3 (21-25) mmol/L ABG Total CO2 (19-24) mmol/L ABG O2 Saturation (94-97) % Sodium 136 L (137-145) mmol/L Carbon Dioxide 31 H (22-30) mmol/L BUN 21 H (7-17) mg/dL Creatinine 0.50 L (0.52-1.04) mg/dL Glucose 120 H (74-99) mg/dL POC Glucose (mg/dL) (75-99) mg/dL Calcium 8.2 L (8.4-10.2) mg/dL AST 76 H (14-36) U/L ALT 110 H (4-34) U/L Alkaline Phosphatase 202 H (38-126) U/L Lactate Dehydrogenase 1050 H (313-618) U/L C-Reactive Protein 20.0 H (<1.0) mg/dL Total Protein 4.7 L (6.3-8.2) g/dL Albumin 2.1 L (3.5-5.0) g/dL 04/02/21 04/02/21 Range/Units 05:11 13:06 WBC (3.8-10.6) k/uL RBC (3.80-5.40) m/uL Hgb (11.4-16.0) gm/dL Hct (34.0-46.0) % Neutrophils # (1.3-7.7) k/uL D-Dimer (<0.60) mg/L FEU ABG pH (7.35-7.45) ABG pCO2 (35-45) mmHg ABG pO2 (83-108) mmHg ABG HCO3 (21-25) mmol/L ABG Total CO2 (19-24) mmol/L ABG O2 Saturation (94-97) % Sodium (137-145) mmol/L Carbon Dioxide (22-30) mmol/L BUN (7-17) mg/dL Creatinine (0.52-1.04) mg/dL Glucose (74-99) mg/dL POC Glucose (mg/dL) 121 H 183 H (75-99) mg/dL Calcium (8.4-10.2) mg/dL AST (14-36) U/L ALT (4-34) U/L Alkaline Phosphatase (38-126) U/L Lactate Dehydrogenase (313-618) U/L C-Reactive Protein (<1.0) mg/dL Total Protein (6.3-8.2) g/dL Albumin (3.5-5.0) g/dL Assessment and Plan Assessment: Acute COVID-19 pneumonia, sputum cultures reporting MSSA. Acute hypoxic respiratory failure secondary to the above, mechanical vent dependent Subcutaneous emphysema and pneumomediastinum secondary to Covid., Status post 3 decompression catheters placed. Hyponatremia, mild, resolved Diabetes mellitus, hyperglycemic hemoglobin A1c 6.5, in addition to steroid contribution Hypothyroidism Hyperlipidemia Plan: Continue on current medication regime ,monitoring and symptomatic treatment. Covid cocktail. ICU management as per manager hvac.Prognosis guarded given multiple complex medical issues. The impression and plan of care has been dictated as directed. : I performed a history and examination of this patient, discussed the same with the dictator. I agree with the dictator's note ,documented as a scribe. Any additional findings or plans will be noted.
[2021-04-02 17:31] LABS: Glucose,Whole Blood 211 mg/dL (75-99)
[2021-04-02] MEDS: lisinopriL 10 MG TAB PO SCH (20:11)
[2021-04-02] MEDS: ATORVASTATIN 40 MG TAB PO SCH (20:11)
[2021-04-02 23:28] LABS: Glucose,Whole Blood 185 mg/dL (75-99)
[2021-04-03] MEDS: fentaNYL (PF). 1,000 MCG in SODIUM CHLORIDE 0.9% 80 ML IV SCH ×4 (04:06→20:44)
[2021-04-03 04:38] LABS: Basophils % (A) 0 %; Eosinophils # (A) 0.1 k/uL (0-0.7); Eosinophils % (A) 1 %; HCT 35.1 % (34.0-46.0); HGB 11.2 gm/dL (11.4-16.0); Lymphocytes # (A) 1.2 k/uL (1.0-4.8); Lymphocytes % (A) 10 %; MCH 30.1 pg (25.0-35.0); MCHC 31.9 g/dL (31.0-37.0); MCV 94.1 fL (80.0-100.0); Monocytes # (A) 0.6 k/uL (0-1.0); Monocytes % (A) 5 %; Neutrophils # (A) 9.4 k/uL (1.3-7.7); Neutrophils % (A) 81 %; Platelet Count 501 k/uL (150-450); RBC 3.72 m/uL (3.80-5.40); RDW 15.1 % (11.5-15.5); WBC 11.6 k/uL (3.8-10.6)
[2021-04-03] MEDS: AMPICILLIN-SULBACTAM 1.5 GM in SODIUM CHLORIDE 0.9% 50 ML IVPB SCH ×4 (05:11→23:45)
[2021-04-03 05:16] LABS: ALT 116 U/L (4-34); AST 67 U/L (14-36); African American GFR (CKD) >90 (>60 ml/min/1.73 sqM); Albumin 2.2 g/dL (3.5-5.0); Alkaline Phosphatase 207 U/L (38-126); Anion Gap 4 mmol/L; Blood Urea Nitrogen 19 mg/dL (7-17); C Reactive Protein 7.8 mg/dL (<1.0); Calcium 8.4 mg/dL (8.4-10.2); Carbon Dioxide 30 mmol/L (22-30); Chloride 99 mmol/L (98-107); Glucose 160 mg/dL (74-99); LDH 1016 U/L (313-618); Non-African American GFR(CKD) >90 (>60 ml/min/1.73 sqM); Potassium 3.8 mmol/L (3.5-5.1); Sodium 133 mmol/L (137-145); Total Bilirubin 0.2 mg/dL (0.2-1.3); Total Protein 4.9 g/dL (6.3-8.2)
[2021-04-03] MEDS: LEVOTHYROXINE 75 MCG TAB PO SCH (05:40)
[2021-04-03] MEDS: INSULIN ASPART (NovoLOG) 100 UNIT/ML VIAL SQ SCH ×4 (05:40→23:45)
[2021-04-03] MEDS: CISATRACURIUM 200 MG in SODIUM CHLORIDE 0.9% 180 ML IV SCH (05:41)
[2021-04-03] MEDS: SODIUM CHLORIDE 0.9% 1,000 ML IV SCH (05:41)
[2021-04-03] MEDS: INSULIN DETEMIR (LEVEMIR) 100 UNIT/ML SYR SQ SCH (05:56)
[2021-04-03] MEDS ORDERED: POTASSIUM BICARB-CITRIC ACID 25 MEQ TABLET.EFF PO SCH (06:00)
[2021-04-03 06:01] LABS: Glucose,Whole Blood 123 mg/dL (75-99)
[2021-04-03 06:18] LABS: ABG Base Excess 9.4 mmol/L; ABG HCO3 33 mmol/L (21-25); ABG Oxygen Saturation 96.9 % (94-97); ABG PCO2 45 mmHg (35-45); ABG PH 7.48 (7.35-7.45); ABG PO2 82 mmHg (83-108); ABG TCO2 34 mmol/L (19-24); Allen Test Performed? Yes
--- NOTE | 2021-04-03 07:29 | XR ---
EXAMINATION TYPE: XR chest 1V portable DATE OF EXAM: 04/03/2021 COMPARISON: Chest x-ray 04/02/2021 HISTORY: Covid infection, intubated TECHNIQUE: Single frontal view of the chest is obtained. FINDINGS: Endotracheal tube is overlying the tracheal air column, NG tube is also in place, distal t ip not included on exam. Bilateral airspace disease shows a similar appearance. No evident pneumothor ax or pleural effusion. Cardiac mediastinal silhouette is likely stable. Subcutaneous emphysema is no pepe. IMPRESSION: Findings consistent with Covid related pneumonia.
[2021-04-03] MEDS: PANTOPRAZOLE 40 MG/10 ML VIAL IVP SCH (08:26)
[2021-04-03] MEDS: CHLORHEXIDINE GLUCONATE 15 ML CUP MUCOUS MEM SCH ×2 (08:26→20:43)
[2021-04-03] MEDS: ENOXAPARIN 40 MG/0.4 ML SYRINGE SQ SCH (08:26)
[2021-04-03] MEDS: ZINC SULFATE 220 MG CAP PO SCH (08:26)
[2021-04-03] MEDS: CHOLECALCIFEROL 25 MCG (1000 IU) TABLET PO SCH (08:26)
[2021-04-03] MEDS: DEXAMETHASONE SOD PHOSPHATE 10 MG/ML 1 ML VIAL IVP SCH (08:27)
[2021-04-03] MEDS: ASCORBIC ACID 500 MG TAB PO SCH (08:27)
[2021-04-03] MEDS: ARTIFICIAL TEARS-HYPROMELLOSE DROPS 15 ML BTL BOTH EYES SCH ×4 (08:27→22:27)
[2021-04-03] MEDS: ALBUTEROL HFA INHALER INHALATION SCH ×4 (11:09→20:12)
--- NOTE | 2021-04-03 11:17 | P.PN ---
Subjective Progress Note Date: 04/03/21 Principal diagnosis: COVID-19 pneumonia The patient is seen today 04/03/2021 in follow-up in the intensive care unit. She had acute hypoxemic respiratory failure secondary to COVID-19 pneumonia. She was intubated on 03/25/2021. She remains intubated and on mechanical ventilator in assist control mode with a rate of 26, tidal volume 375, FiO2 50% and a PEEP of 15. Morning blood gases revealed a PaO2 of 82, pCO2 45 and a pH of 7.47. She remains on Nimbex at 1.7 mcg/kg/m, sentinel at 2.5 mcg/kg per hour, propofol at 50 mcg/kg/m. 0.9 normal saline at 20 miles per hour. She is being nourished with vital AF at 23 ML's per hour which is goal. Chest x-ray continues to show bilateral patchy infiltrates consistent with COVID-19 pneumonia. No evidence of pneumothorax or pleural effusion. Sputum cultures positive for MSSA. She is currently on Unasyn. White Count 11.6. Hemoglobin 11.2. D-dimer 1.76. Sodium 133. Potassium 3.8. Creatinine 0.49. AST 67. ALT 116. Alk phos 207. LDH 1016. C-reactive protein 7.8. She remains on Decadron, Lovenox, vitamin supplements. She has not been tolerating daily interruption of sedation. She becomes quite a synchronous with the ventilator. Most likely will need tracheostomy and PEG tube placements. Objective - Vital Signs Vital signs: Vital Signs Temp 98 F 04/03/21 00:00 Pulse 96 04/03/21 07:30 Resp 26 H 04/03/21 07:30 BP 108/64 04/02/21 18:00 Pulse Ox 94 L 04/03/21 07:30 Intake & Output 04/02/21 04/03/21 04/03/21 18:59 06:59 18:59 Intake Total 7808.481 3364.118 202.838 Output Total 655 640 60 Balance 531.090 552.118 142.838 Weight 88 kg 88 kg Intake: IV 276 276 23 Sodium Chloride 0.9% 1, 240 240 20 000 ml @ 20 mls/hr IV . Q24H [facility] Rx#:[id number] pressure bag 36 36 3 Intake, IV Titration 466.090 472.118 179.838 Amount Cisatracurium 200 mg In 86.050 106.779 Sodium Chloride 0.9% 180 ml @ 1 MCG/KG/MIN 4.218 mls/hr IV .Q24H [facility] Rx#: [id number] Norepinephrine 32 mg In 0 2.883 Sodium Chloride 0.9% 218 ml @ 0.05 MCG/KG/MIN 1. 828 mls/hr IV .Q24H [facility] Rx#:[id number] fentaNYL (PF). 1,000 mcg 200 172.658 93.158 In Sodium Chloride 0.9% 80 ml @ 0.5 MCG/KG/HR 3. 515 mls/hr IV .Q24H [facility] Rx#:[id number] propofoL 1,000 mg In 180.04 189.798 86.68 Empty Bag 1 bag @ Titrate IV .Q0M [facility] Rx#: [id number] Tube Feeding 264 264 Other 180 180 Output: Urine 655 640 60 Other: Voiding Method Indwelling Catheter Indwelling Catheter ABP, PAP, CO, CI - Last Documented Arterial Blood Pressure 156/63 - Exam GENERAL EXAM: Intubated, sedated, paralyzed 65-year-old female patient, on the mechanical ventilator, comfortable in no apparent distress. HEAD: Normocephalic. EYES: Sluggish reaction of pupils, equal size. NOSE: Clear with pink turbinates. THROAT: Oral endotracheal and gastric tube secured in place. No erythema or exudates. NECK: No masses, no JVD. CHEST: No chest wall deformity. LUNGS: Equal air entry with coarse crackles in the bilateral bases. CVS: S1 and S2 normal with no audible murmur, regular rhythm. ABDOMEN: No hepatosplenomegaly, normal bowel sounds, no guarding or rigidity. SPINE: No scoliosis or deformity SKIN: No rashes CENTRAL NERVOUS SYSTEM: Sedated, paralyzed, tone is normal in all 4 extremities. EXTREMITIES: There is trace peripheral edema. No clubbing, no cyanosis. Peripheral pulses are intact.l - Labs CBC & Chem 7: 04/03/21 06:00 04/03/21 06:00 Labs: Abnormal Lab Results - Last 24 Hours (Table) 04/02/21 04/02/21 04/02/21 Range/Units 13:06 17:29 23:26 WBC (3.8-10.6) k/uL RBC (3.80-5.40) m/uL Hgb (11.4-16.0) gm/dL Plt Count (150-450) k/uL Neutrophils # (1.3-7.7) k/uL D-Dimer (<0.60) mg/L FEU ABG pH (7.35-7.45) ABG pO2 (83-108) mmHg ABG HCO3 (21-25) mmol/L ABG Total CO2 (19-24) mmol/L Sodium (137-145) mmol/L BUN (7-17) mg/dL Creatinine (0.52-1.04) mg/dL Glucose (74-99) mg/dL POC Glucose (mg/dL) 183 H 211 H 185 H (75-99) mg/dL AST (14-36) U/L ALT (4-34) U/L Alkaline Phosphatase (38-126) U/L Lactate Dehydrogenase (313-618) U/L C-Reactive Protein (<1.0) mg/dL Total Protein (6.3-8.2) g/dL Albumin (3.5-5.0) g/dL 04/03/21 04/03/21 04/03/21 Range/Units 06:00 06:00 06:00 WBC 11.6 H (3.8-10.6) k/uL RBC 3.72 L (3.80-5.40) m/uL Hgb 11.2 L (11.4-16.0) gm/dL Plt Count 501 H (150-450) k/uL Neutrophils # 9.4 H (1.3-7.7) k/uL D-Dimer 1.76 H (<0.60) mg/L FEU ABG pH (7.35-7.45) ABG pO2 (83-108) mmHg ABG HCO3 (21-25) mmol/L ABG Total CO2 (19-24) mmol/L Sodium 133 L (137-145) mmol/L BUN 19 H (7-17) mg/dL Creatinine 0.49 L (0.52-1.04) mg/dL Glucose 160 H (74-99) mg/dL POC Glucose (mg/dL) (75-99) mg/dL AST 67 H (14-36) U/L ALT 116 H (4-34) U/L Alkaline Phosphatase 207 H (38-126) U/L Lactate Dehydrogenase 1016 H (313-618) U/L C-Reactive Protein 7.8 H (<1.0) mg/dL Total Protein 4.9 L (6.3-8.2) g/dL Albumin 2.2 L (3.5-5.0) g/dL 04/03/21 04/03/21 Range/Units 06:00 06:14 WBC (3.8-10.6) k/uL RBC (3.80-5.40) m/uL Hgb (11.4-16.0) gm/dL Plt Count (150-450) k/uL Neutrophils # (1.3-7.7) k/uL D-Dimer (<0.60) mg/L FEU ABG pH 7.48 H (7.35-7.45) ABG pO2 82 L (83-108) mmHg ABG HCO3 33 H (21-25) mmol/L ABG Total CO2 34 H (19-24) mmol/L Sodium (137-145) mmol/L BUN (7-17) mg/dL Creatinine (0.52-1.04) mg/dL Glucose (74-99) mg/dL POC Glucose (mg/dL) 123 H (75-99) mg/dL AST (14-36) U/L ALT (4-34) U/L Alkaline Phosphatase (38-126) U/L Lactate Dehydrogenase (313-618) U/L C-Reactive Protein (<1.0) mg/dL Total Protein (6.3-8.2) g/dL Albumin (3.5-5.0) g/dL Assessment and Plan Assessment: 1 Acute hypoxemic respiratory failure secondary to coronavirus associated pneumonia, status post intubation with mechanical ventilation on 03/25/2021. CT angiogram was negative for pulmonary embolism. 2 Elevated inflammatory marker secondary to coronavirus infection. 3 Type 2 diabetes mellitus. 4 Hypothyroidism. 5 Hyperlipidemia. 6 Pneumomediastinum with subcutaneous emphysema, mainly resolved. 7 MSSA positive sputum Plan: The patient was seen and evaluated Chest x-ray, ABGs and labs reviewed Continue daily interruption of sedation and wean paralytics as tolerated Will most likely require tracheostomy and PEG tube placements Remains on Unasyn for MSSA Continue with tube feedings Remains on Decadron, Lovenox, vitamin supplements We will continue to follow and make further recommendations based on her clinical status Critical care time 36 minutes I, the cosigning physician, performed a history & physical examination of the patient. Lungs sounds with coarse crackles in the posterior bases. Maintaining O2 saturations in the 90s on 50% FiO2 and a PEEP of 15 via the mechanical ventilator. I discussed the assessment and plan of care with my nurse practitioner, Joanie Bryson. I attest to the above note as dictated by her.
[2021-04-03 12:37] LABS: Glucose,Whole Blood 150 mg/dL (75-99)
[2021-04-03 13:42] LABS: Glucose,Whole Blood 172 mg/dL (75-99)
--- NOTE | 2021-04-03 16:26 | P.PN ---
Subjective Progress Note Date: 04/03/21 This is 65-year-old female with past medical history of diabetes mellitus, hyperlipidemia, hypertension, osteoarthritis, no smoking history presented to the ER with worsening dyspnea 10 days accompanied by loss of appetite, fatigue, cough. Denies fevers or sweats. Denies muscle aches. On admission patient was febrile with temperature 99.1, WBC 5.2, tachycardic, cachectic, maintaining O2 sats of 88% on room air. Patient's respiratory status has further worsened and currently maintaining O2 sats of mid 90s on 3 L nasal cannula. Displays exertional dyspnea after ambulating from BR. Coronavirus PCR positive. D-dimer 0.39, LDH 1108, CRP 18.6. Chest x-ray reporting reticular and some minimal patc hy opacity's over bilateral lower lungs, left greater than right. Hemoglobin 14.5, platelets 287. Sodium currently 132, potassium 5, BUN 27, creatinine 0.77. A.m. Accu-Chek currently being obtained, the blood sugar 231 last night. Denies chest pain, palpitations. 03/20/2021 continues on covid cocktail .oxygen requirements worsened, currently requiring 10 L high flow nasal cannula to maintain O2 sats in the high 80s to low 90s. Reports had coughing spells last night but no cough this morning .exertional shortness of breath .Denies chest pain, palpitations. Afebrile. Ambulatory markers improving with the exception of mild increase in d- dimer.Calcitonin minimally elevated, 0.12. BMP pending. Blood sugars better improving. 03/21/21 maintaining O2 sats in the low 90s on 2 L nasal cannula. Reports minimal nonproductive cough, exertional shortness of breath, loose stools. Blood sugars controlled .Denies chest pain, palpitations. Denies diaphoresis. Afebrile. 03/22/2021 O2 requirements worsened, currently requiring 15 L high flow. Anxious. Current the afebrile, T-max 99.8, labs pending. Yesterday consuming 50-75% of diet. This morning some hypoglycemia, currently 85. Hemoglobin A1c 6.5 03/25/2021 respiratory status worsened .BiPAP at 100%, maintaining O2 sats of m id 80s, transferred to ICU. Anxious. Precedex initiated. Labs pending. 03/26/21 remains vent dependent with FiO2 70/+14 of PEEP. Maintained on diprovan, fentanyl and Pneumovax. Afebrile, normal WBC. Chest x-ray reporting diffuse interstitial pattern of bilateral infiltrates and pleural effusion. 03/27/2021 remains vent dependent, FiO2 60%/+16 of PEEP. Chest x-ray reporting diffuse pleural-parenchymal changes.Maintained on Nimbex, Levophed, fentanyl, diprovan. Continues on covid cocktail. 03/28/2021 FiO2 50%/+16 of PEEP. Chest x-ray reporting extensive subcutaneous emphysema with no change in bibasilar opacities. Levophed weaned off. Maintained on diprovan, Nimbex, fentanyl drips. Covid cocktail. Afebrile, T-max 99.9, WBC 11.8. BUN 36, creatinine 0.58. Blood sugars in the 200s. 03/29/2021 FiO2 50%/+16 of PEEP. Maintained on Levophed ,Nimbex and fentanyl drips. Chest x-ray reporting continued bilateral infiltrates, worsening subcutaneous emphysema. 3 catheters placed in left anterior chest wall right and left supraclavicular areas for decompression.Afebrile, T-max 99.4. 04/01/2021 vent dependent,FIO2 55%/+12 Peep. Maintained on Nimbex, Levophed diprovan and fentanyl drips. Chest x-ray reporting continued bilateral peripheral basilar Covid pneumonia without significant change, improving bilateral subcutaneous emphysema. Afebrile, T-max 99.1, WBC 12.5, Sputum reporting MSSA Evaluated by cardiology, echo ordered and pending. 04/02/2021 FiO2 50%/+15 of PEEP. Chest x-ray reporting bilateral airspace disease consistent with Covid pneumonia, improving subcutaneous emphysema. Maintained on diprovan, fentanyl, Nimbex. Levophed off and on throughout the night, currently off. Echo pending. Currently afebrile, T-max 99.1, WBC 12.2. D-dimer decreased to 1.1, LDH and CRP increased. 04/03/2021 FiO2 50/+15 of PEEP. Chest x-ray reporting similar bilateral airspace disease with subcutaneous emphysema. Maintained on Nimbex, fentanyl and diprovan. Echo reporting hyperdynamic systolic function, EF greater than 70% moderate pulmonary hypertension. Objective - Vital Signs Vital signs: Vital Signs Temp 98 F 04/03/21 00:00 Pulse 67 04/03/21 09:00 Resp 26 H 04/03/21 09:00 BP 108/64 04/02/21 18:00 Pulse Ox 94 L 04/03/21 09:00 Intake & Output 04/02/21 04/03/21 04/03/21 18:59 06:59 18:59 Intake Total 7811.958 2714.118 459.512 Output Total 655 640 435 Balance 531.090 552.118 24.512 Weight 88 kg 88 kg Intake: IV 276 276 183 Sodium Chloride 0.9% 1, 240 240 180 000 ml @ 20 mls/hr IV . Q24H [facility] Rx#:[id number] pressure bag 36 36 3 Intake, IV Titration 466.090 472.118 276.512 Amount Cisatracurium 200 mg In 86.050 106.779 Sodium Chloride 0.9% 180 ml @ 1 MCG/KG/MIN 4.218 mls/hr IV .Q24H [facility] Rx#: [id number] Norepinephrine 32 mg In 0 2.883 Sodium Chloride 0.9% 218 ml @ 0.05 MCG/KG/MIN 1. 828 mls/hr IV .Q24H [facility] Rx#:[id number] fentaNYL (PF). 1,000 mcg 200 172.658 189.832 In Sodium Chloride 0.9% 80 ml @ 0.5 MCG/KG/HR 3. 515 mls/hr IV .Q24H [facility] Rx#:[id number] propofoL 1,000 mg In 180.04 189.798 86.68 Empty Bag 1 bag @ Titrate IV .Q0M [facility] Rx#: [id number] Tube Feeding 264 264 Other 180 180 Output: Urine 655 640 435 Other: Voiding Method Indwelling Catheter Indwelling Catheter ABP, PAP, CO, CI - Last Documented Arterial Blood Pressure 124/58 - Exam Limited PHYSICAL EXAM on a intubated covid patient: VITAL SIGNS: As above GENERAL: Maintained on mechanical ventilator, sedated and on paralytics CARDIOVASCULAR: S1, S2 regular. Telemetry sinus rhythm ABD: Nondistended NERVOUS SYSTEM: Unable to evaluate, patient sedated and on paralytics - Labs CBC & Chem 7: 04/03/21 06:00 04/03/21 06:00 Labs: Abnormal Lab Results - Last 24 Hours (Table) 04/02/21 04/02/21 04/03/21 Range/Units 17:29 23:26 06:00 WBC 11.6 H (3.8-10.6) k/uL RBC 3.72 L (3.80-5.40) m/uL Hgb 11.2 L (11.4-16.0) gm/dL Plt Count 501 H (150-450) k/uL Neutrophils # 9.4 H (1.3-7.7) k/uL D-Dimer (<0.60) mg/L FEU ABG pH (7.35-7.45) ABG pO2 (83-108) mmHg ABG HCO3 (21-25) mmol/L ABG Total CO2 (19-24) mmol/L Sodium (137-145) mmol/L BUN (7-17) mg/dL Creatinine (0.52-1.04) mg/dL Glucose (74-99) mg/dL POC Glucose (mg/dL) 211 H 185 H (75-99) mg/dL AST (14-36) U/L ALT (4-34) U/L Alkaline Phosphatase (38-126) U/L Lactate Dehydrogenase (313-618) U/L C-Reactive Protein (<1.0) mg/dL Total Protein (6.3-8.2) g/dL Albumin (3.5-5.0) g/dL 04/03/21 04/03/21 04/03/21 Range/Units 06:00 06:00 06:00 WBC (3.8-10.6) k/uL RBC (3.80-5.40) m/uL Hgb (11.4-16.0) gm/dL Plt Count (150-450) k/uL Neutrophils # (1.3-7.7) k/uL D-Dimer 1.76 H (<0.60) mg/L FEU ABG pH (7.35-7.45) ABG pO2 (83-108) mmHg ABG HCO3 (21-25) mmol/L ABG Total CO2 (19-24) mmol/L Sodium 133 L (137-145) mmol/L BUN 19 H (7-17) mg/dL Creatinine 0.49 L (0.52-1.04) mg/dL Glucose 160 H (74-99) mg/dL POC Glucose (mg/dL) 123 H (75-99) mg/dL AST 67 H (14-36) U/L ALT 116 H (4-34) U/L Alkaline Phosphatase 207 H (38-126) U/L Lactate Dehydrogenase 1016 H (313-618) U/L C-Reactive Protein 7.8 H (<1.0) mg/dL Total Protein 4.9 L (6.3-8.2) g/dL Albumin 2.2 L (3.5-5.0) g/dL 04/03/21 04/03/21 04/03/21 Range/Units 06:14 12:35 13:40 WBC (3.8-10.6) k/uL RBC (3.80-5.40) m/uL Hgb (11.4-16.0) gm/dL Plt Count (150-450) k/uL Neutrophils # (1.3-7.7) k/uL D-Dimer (<0.60) mg/L FEU ABG pH 7.48 H (7.35-7.45) ABG pO2 82 L (83-108) mmHg ABG HCO3 33 H (21-25) mmol/L ABG Total CO2 34 H (19-24) mmol/L Sodium (137-145) mmol/L BUN (7-17) mg/dL Creatinine (0.52-1.04) mg/dL Glucose (74-99) mg/dL POC Glucose (mg/dL) 150 H 172 H (75-99) mg/dL AST (14-36) U/L ALT (4-34) U/L Alkaline Phosphatase (38-126) U/L Lactate Dehydrogenase (313-618) U/L C-Reactive Protein (<1.0) mg/dL Total Protein (6.3-8.2) g/dL Albumin (3.5-5.0) g/dL Assessment and Plan Assessment: Acute COVID-19 pneumonia, sputum cultures reporting MSSA. Acute hypoxic respiratory failure secondary to the above, mechanical vent dependent Subcutaneous emphysema and pneumomediastinum secondary to Covid., Status post 3 decompression catheters placed. Hyponatremia, mild, resolved Diabetes mellitus, hyperglycemic hemoglobin A1c 6.5, in addition to steroid contribution Hypothyroidism Hyperlipidemia Plan: Continue on current medication regime ,monitoring and symptomatic treatment. Covid cocktail. ICU management as per graduate fellow.trach and PEG placement currently being discussed .Prognosis guarded given multiple complex medical issues. The impression and plan of care has been dictated as directed. : I performed a history and examination of this patient, discussed the same with the dictator. I agree with the dictator's note ,documented as a scribe. Any additional findings or plans will be noted.
[2021-04-03 17:33] LABS: Glucose,Whole Blood 220 mg/dL (75-99)
[2021-04-03] MEDS: NOREPINEPHRINE 32 MG in SODIUM CHLORIDE 0.9% 218 ML IV SCH (18:30)
[2021-04-03] MEDS: lisinopriL 10 MG TAB PO SCH (20:43)
[2021-04-03] MEDS: ATORVASTATIN 40 MG TAB PO SCH (20:43)
[2021-04-03 23:42] LABS: Glucose,Whole Blood 127 mg/dL (75-99)
[2021-04-04] MEDS: fentaNYL (PF). 1,000 MCG in SODIUM CHLORIDE 0.9% 80 ML IV SCH ×4 (03:05→20:57)
[2021-04-04] MEDS: SODIUM CHLORIDE 0.9% 1,000 ML IV SCH (03:09)
[2021-04-04 04:50] LABS: Basophils % (A) 0 %; Eosinophils # (A) 0.2 k/uL (0-0.7); Eosinophils % (A) 2 %; HCT 31.6 % (34.0-46.0); HGB 10.5 gm/dL (11.4-16.0); Lymphocytes # (A) 1.4 k/uL (1.0-4.8); Lymphocytes % (A) 14 %; MCH 30.3 pg (25.0-35.0); MCHC 33.2 g/dL (31.0-37.0); MCV 91.4 fL (80.0-100.0); Mean Platelet Volume 7.9; Monocytes # (A) 0.7 k/uL (0-1.0); Monocytes % (A) 7 %; Neutrophils # (A) 7.6 k/uL (1.3-7.7); Neutrophils % (A) 75 %; Platelet Count 542 k/uL (150-450); RBC 3.46 m/uL (3.80-5.40); RDW 14.4 % (11.5-15.5); WBC 10.1 k/uL (3.8-10.6)
[2021-04-04 04:57] LABS: Potassium 3.4 mmol/L (3.5-5.1)
[2021-04-04] MEDS: CISATRACURIUM 200 MG in SODIUM CHLORIDE 0.9% 180 ML IV SCH (04:59)
[2021-04-04 05:01] LABS: ALT 82 U/L (4-34); AST 40 U/L (14-36); African American GFR (CKD) >90 (>60 ml/min/1.73 sqM); Alkaline Phosphatase 181 U/L (38-126); Anion Gap 5 mmol/L; Blood Urea Nitrogen 16 mg/dL (7-17); C Reactive Protein 7.1 mg/dL (<1.0); Calcium 8.1 mg/dL (8.4-10.2); Carbon Dioxide 30 mmol/L (22-30); Chloride 98 mmol/L (98-107); Glucose 113 mg/dL (74-99); LDH 823 U/L (313-618); Non-African American GFR(CKD) >90 (>60 ml/min/1.73 sqM); Sodium 133 mmol/L (137-145); Total Bilirubin 0.1 mg/dL (0.2-1.3); Total Protein 4.5 g/dL (6.3-8.2)
[2021-04-04] MEDS: AMPICILLIN-SULBACTAM 1.5 GM in SODIUM CHLORIDE 0.9% 50 ML IVPB SCH ×4 (05:01→23:10)
[2021-04-04 05:30] LABS: Glucose,Whole Blood 135 mg/dL (75-99)
[2021-04-04] MEDS: LEVOTHYROXINE 75 MCG TAB PO SCH (05:36)
[2021-04-04] MEDS: INSULIN ASPART (NovoLOG) 100 UNIT/ML VIAL SQ SCH ×3 (05:36→18:05)
[2021-04-04 05:52] LABS: ABG Base Excess 9.7 mmol/L; ABG HCO3 33 mmol/L (21-25); ABG PCO2 44 mmHg (35-45); ABG PH 7.49 (7.35-7.45); ABG PO2 61 mmHg (83-108); ABG TCO2 34 mmol/L (19-24); Allen Test Performed? Yes
[2021-04-04] MEDS: POTASSIUM BICARB-CITRIC ACID 25 MEQ TABLET.EFF PO SCH ×2 (06:05→08:47)
[2021-04-04] MEDS: INSULIN DETEMIR (LEVEMIR) 100 UNIT/ML SYR SQ SCH (06:07)
[2021-04-04] MEDS: ALBUTEROL HFA INHALER INHALATION SCH ×4 (07:43→20:30)
[2021-04-04] MEDS: CHLORHEXIDINE GLUCONATE 15 ML CUP MUCOUS MEM SCH ×2 (08:45→20:57)
[2021-04-04] MEDS: CHOLECALCIFEROL 25 MCG (1000 IU) TABLET PO SCH (08:46)
[2021-04-04] MEDS: ARTIFICIAL TEARS-HYPROMELLOSE DROPS 15 ML BTL BOTH EYES SCH ×4 (08:46→20:59)
[2021-04-04] MEDS: ASCORBIC ACID 500 MG TAB PO SCH (08:46)
[2021-04-04] MEDS: DEXAMETHASONE SOD PHOSPHATE 10 MG/ML 1 ML VIAL IVP SCH (08:46)
[2021-04-04] MEDS: ZINC SULFATE 220 MG CAP PO SCH (08:46)
[2021-04-04] MEDS: PANTOPRAZOLE 40 MG/10 ML VIAL IVP SCH (08:46)
[2021-04-04] MEDS: ENOXAPARIN 40 MG/0.4 ML SYRINGE SQ SCH (08:46)
[2021-04-04] MEDS: NOREPINEPHRINE 32 MG in SODIUM CHLORIDE 0.9% 218 ML IV SCH (08:47)
--- NOTE | 2021-04-04 09:08 | XR ---
EXAMINATION TYPE: XR chest 1V portable DATE OF EXAM: 04/04/2021 Comparison: 04/03/2021 Clinical History: 65-year-old female covid Findings: ET tube and NG tube are satisfactory. Left subclavian CVC tip at the lower SVC. Heart normal size. Pe ripheral and basilar airspace opacities persist but show slight improvement from prior. Impression: Persistent but improving peripheral and basilar COVID pneumonia.
--- NOTE | 2021-04-04 09:26 | P.PN ---
Subjective Progress Note Date: 04/04/21 Principal diagnosis: COVID-19 pneumonia The patient is seen today 04/03/2021 in follow-up in the intensive care unit. She had acute hypoxemic respiratory failure secondary to COVID-19 pneumonia. She was intubated on 03/25/2021. She remains intubated and on mechanical ventilator in assist control mode with a rate of 26, tidal volume 375, FiO2 50% and a PEEP of 15. Morning blood gases revealed a PaO2 of 82, pCO2 45 and a pH of 7.47. She remains on Nimbex at 1.7 mcg/kg/m, sentinel at 2.5 mcg/kg per hour, propofol at 50 mcg/kg/m. 0.9 normal saline at 20 miles per hour. She is being nourished with vital AF at 23 ML's per hour which is goal. Chest x-ray continues to show bilateral patchy infiltrates consistent with COVID-19 pneumonia. No evidence of pneumothorax or pleural effusion. Sputum cultures positive for MSSA. She is currently on Unasyn. White Count 11.6. Hemoglobin 11.2. D-dimer 1.76. Sodium 133. Potassium 3.8. Creatinine 0.49. AST 67. ALT 116. Alk phos 207. LDH 1016. C-reactive protein 7.8. She remains on Decadron, Lovenox, vitamin supplements. She has not been tolerating daily interruption of sedation. She becomes quite a synchronous with the ventilator. Most likely will need tracheostomy and PEG tube placements. The patient is seen today 04/04/2021 in follow-up in the intensive care unit. She remains intubated on mechanical ventilator. Current settings are assist control at a rate of 26, tidal on 375, FiO2 50% and a PEEP of 15. Morning blood gases reveal a pO2 of 61, pCO2 44, pH 7.49. She is sedated on propofol 50 mcg/ kg/m. Nimbex at 1.5 mcg/m. Fentanyl at 2 mcg/kg/h. She is being nourished with vital AF at 19 ML's per hour. Normal saline at 20 ML's per hour. She's had a very labile blood pressure. At times requiring levo norepinephrine and at times requiring Cleviprex. Currently in sinus rhythm. White count 10.1. Hemoglobin 10.5. D-dimer 2.15. Sodium 133. Potassium 3.4. Creatinine 0.46. Glucose 113. AST 40. ALT 82. Alk phos 181. LDH 823. C-reactive protein 7.1. She remains on Unasyn for MSSA in the sputum, bronchodilators. Decadron, vitamin supplement and Lovenox. Objective - Vital Signs Vital signs: Vital Signs Temp 98.6 F 04/04/21 04:00 Pulse 83 04/04/21 07:00 Resp 26 H 04/04/21 07:00 BP 127/108 04/03/21 19:00 Pulse Ox 94 L 04/04/21 07:00 Intake & Output 04/03/21 04/04/21 04/04/21 18:59 06:59 18:59 Intake Total 743.137 2046.691 118.679 Output Total 690 935 125 Balance -64.820 383.691 -6.321 Weight 88 kg 88 kg Intake: IV 203 273 20 Sodium Chloride 0.9% 1, 200 240 20 000 ml @ 20 mls/hr IV . Q24H [facility] Rx#:[id number] pressure bag 3 33 Intake, IV Titration 422.180 626.691 79.679 Amount Cisatracurium 200 mg In 160.312 Sodium Chloride 0.9% 180 ml @ 1 MCG/KG/MIN 4.218 mls/hr IV .Q24H [facility] Rx#: [id number] Norepinephrine 32 mg In 5.668 14.579 Sodium Chloride 0.9% 218 ml @ 0.05 MCG/KG/MIN 1. 828 mls/hr IV .Q24H [facility] Rx#:[id number] Sodium Chloride 0.9% 1, 40 000 ml @ 20 mls/hr IV . Q24H [facility] Rx#:[id number] fentaNYL (PF). 1,000 mcg 189.832 200.000 79.679 In Sodium Chloride 0.9% 80 ml @ 0.5 MCG/KG/HR 3. 515 mls/hr IV .Q24H [facility] Rx#:[id number] propofoL 1,000 mg In 186.68 251.80 Empty Bag 1 bag @ Titrate IV .Q0M [facility] Rx#: [id number] Tube Feeding 209 19 Other 210 Output: Urine 690 935 125 Other: Voiding Method Indwelling Catheter Indwelling Catheter ABP, PAP, CO, CI - Last Documented Arterial Blood Pressure 180/87 - Exam GENERAL EXAM: Intubated, sedated, paralyzed 65-year-old female patient, maintaining O2 saturations in the 90s on 50% FiO2 and a PEEP of 15, comfortable in no apparent distress. HEAD: Normocephalic. EYES: Sluggish reaction of pupils, equal size. NOSE: Clear with pink turbinates. THROAT: Oral endotracheal and gastric tube secured in place. No erythema or exudates. NECK: No masses, no JVD. CHEST: No chest wall deformity. LUNGS: Equal air entry with coarse crackles in the bilateral bases. CVS: S1 and S2 normal with no audible murmur, regular rhythm. ABDOMEN: No hepatosplenomegaly, normal bowel sounds, no guarding or rigidity. SPINE: No scoliosis or deformity SKIN: No rashes CENTRAL NERVOUS SYSTEM: Sedated, paralyzed, tone is normal in all 4 extremities. EXTREMITIES: There is trace peripheral edema. No clubbing, no cyanosis. Peripheral pulses are intact.l - Labs CBC & Chem 7: 04/04/21 04:15 04/04/21 04:15 Labs: Abnormal Lab Results - Last 24 Hours (Table) 04/03/21 04/03/21 04/03/21 Range/Units 12:35 13:40 17:31 RBC (3.80-5.40) m/uL Hgb (11.4-16.0) gm/dL Hct (34.0-46.0) % Plt Count (150-450) k/uL D-Dimer (<0.60) mg/L FEU ABG pH (7.35-7.45) ABG pO2 (83-108) mmHg ABG HCO3 (21-25) mmol/L ABG Total CO2 (19-24) mmol/L ABG O2 Saturation (94-97) % Sodium (137-145) mmol/L Potassium (3.5-5.1) mmol/L Creatinine (0.52-1.04) mg/dL Glucose (74-99) mg/dL POC Glucose (mg/dL) 150 H 172 H 220 H (75-99) mg/dL Calcium (8.4-10.2) mg/dL Total Bilirubin (0.2-1.3) mg/dL AST (14-36) U/L ALT (4-34) U/L Alkaline Phosphatase (38-126) U/L Lactate Dehydrogenase (313-618) U/L C-Reactive Protein (<1.0) mg/dL Total Protein (6.3-8.2) g/dL Albumin (3.5-5.0) g/dL 04/03/21 04/04/21 04/04/21 Range/Units 23:40 04:15 04:15 RBC 3.46 L (3.80-5.40) m/uL Hgb 10.5 L (11.4-16.0) gm/dL Hct 31.6 L (34.0-46.0) % Plt Count 542 H (150-450) k/uL D-Dimer 2.15 H (<0.60) mg/L FEU ABG pH (7.35-7.45) ABG pO2 (83-108) mmHg ABG HCO3 (21-25) mmol/L ABG Total CO2 (19-24) mmol/L ABG O2 Saturation (94-97) % Sodium (137-145) mmol/L Potassium (3.5-5.1) mmol/L Creatinine (0.52-1.04) mg/dL Glucose (74-99) mg/dL POC Glucose (mg/dL) 127 H (75-99) mg/dL Calcium (8.4-10.2) mg/dL Total Bilirubin (0.2-1.3) mg/dL AST (14-36) U/L ALT (4-34) U/L Alkaline Phosphatase (38-126) U/L Lactate Dehydrogenase (313-618) U/L C-Reactive Protein (<1.0) mg/dL Total Protein (6.3-8.2) g/dL Albumin (3.5-5.0) g/dL 04/04/21 04/04/21 04/04/21 Range/Units 04:15 05:28 05:50 RBC (3.80-5.40) m/uL Hgb (11.4-16.0) gm/dL Hct (34.0-46.0) % Plt Count (150-450) k/uL D-Dimer (<0.60) mg/L FEU ABG pH 7.49 H (7.35-7.45) ABG pO2 61 L (83-108) mmHg ABG HCO3 33 H (21-25) mmol/L ABG Total CO2 34 H (19-24) mmol/L ABG O2 Saturation 92.0 L (94-97) % Sodium 133 L (137-145) mmol/L Potassium 3.4 L (3.5-5.1) mmol/L Creatinine 0.46 L (0.52-1.04) mg/dL Glucose 113 H (74-99) mg/dL POC Glucose (mg/dL) 135 H (75-99) mg/dL Calcium 8.1 L (8.4-10.2) mg/dL Total Bilirubin 0.1 L (0.2-1.3) mg/dL AST 40 H (14-36) U/L ALT 82 H (4-34) U/L Alkaline Phosphatase 181 H (38-126) U/L Lactate Dehydrogenase 823 H (313-618) U/L C-Reactive Protein 7.1 H (<1.0) mg/dL Total Protein 4.5 L (6.3-8.2) g/dL Albumin 2.0 L (3.5-5.0) g/dL Assessment and Plan Assessment: 1 Acute hypoxemic respiratory failure secondary to coronavirus associated pneumonia, status post intubation with mechanical ventilation on 03/25/2021. CT angiogram was negative for pulmonary embolism. 2 Elevated inflammatory marker secondary to coronavirus infection. 3 Type 2 diabetes mellitus. 4 Hypothyroidism. 5 Hyperlipidemia. 6 Pneumomediastinum with subcutaneous emphysema, mainly resolved. 7 MSSA positive sputum Plan: The patient was seen and evaluated Chest x-ray, ABGs and labs reviewed Continue daily interruption of sedation and wean paralytics as tolerated Consult surgery for tracheostomy and PEG tube placements Remains on Unasyn for MSSA Remains on Decadron, Lovenox, vitamin supplements We will continue to follow and make further recommendations based on her clinical status Critical care time 38 minutes I, the cosigning physician, performed a history & physical examination of the patient. Lungs sounds with coarse crackles in the posterior bases. Maintaining O2 saturations in the 90s on 50% FiO2 and a PEEP of 15 via the mechanical ventilator. I discussed the assessment and plan of care with my nurse practitioner, Joanie Bryson. I attest to the above note as dictated by her.
[2021-04-04 11:13] LABS: Glucose,Whole Blood 158 mg/dL (75-99)
--- NOTE | 2021-04-04 11:59 | P.PN ---
Subjective Progress Note Date: 04/04/21 This is 65-year-old female with past medical history of diabetes mellitus, hyperlipidemia, hypertension, osteoarthritis, no smoking history presented to the ER with worsening dyspnea 10 days accompanied by loss of appetite, fatigue, cough. Denies fevers or sweats. Denies muscle aches. On admission patient was febrile with temperature 99.1, WBC 5.2, tachycardic, cachectic, maintaining O2 sats of 88% on room air. Patient's respiratory status has further worsened and currently maintaining O2 sats of mid 90s on 3 L nasal cannula. Displays exertional dyspnea after ambulating from BR. Coronavirus PCR positive. D-dimer 0.39, LDH 1108, CRP 18.6. Chest x-ray reporting reticular and some minimal patc hy opacity's over bilateral lower lungs, left greater than right. Hemoglobin 14.5, platelets 287. Sodium currently 132, potassium 5, BUN 27, creatinine 0.77. A.m. Accu-Chek currently being obtained, the blood sugar 231 last night. Denies chest pain, palpitations. 03/20/2021 continues on covid cocktail .oxygen requirements worsened, currently requiring 10 L high flow nasal cannula to maintain O2 sats in the high 80s to low 90s. Reports had coughing spells last night but no cough this morning .exertional shortness of breath .Denies chest pain, palpitations. Afebrile. Ambulatory markers improving with the exception of mild increase in d- dimer.Calcitonin minimally elevated, 0.12. BMP pending. Blood sugars better improving. 03/21/21 maintaining O2 sats in the low 90s on 2 L nasal cannula. Reports minimal nonproductive cough, exertional shortness of breath, loose stools. Blood sugars controlled .Denies chest pain, palpitations. Denies diaphoresis. Afebrile. 03/22/2021 O2 requirements worsened, currently requiring 15 L high flow. Anxious. Current the afebrile, T-max 99.8, labs pending. Yesterday consuming 50-75% of diet. This morning some hypoglycemia, currently 85. Hemoglobin A1c 6.5 03/25/2021 respiratory status worsened .BiPAP at 100%, maintaining O2 sats of m id 80s, transferred to ICU. Anxious. Precedex initiated. Labs pending. 03/26/21 remains vent dependent with FiO2 70/+14 of PEEP. Maintained on diprovan, fentanyl and Pneumovax. Afebrile, normal WBC. Chest x-ray reporting diffuse interstitial pattern of bilateral infiltrates and pleural effusion. 03/27/2021 remains vent dependent, FiO2 60%/+16 of PEEP. Chest x-ray reporting diffuse pleural-parenchymal changes.Maintained on Nimbex, Levophed, fentanyl, diprovan. Continues on covid cocktail. 03/28/2021 FiO2 50%/+16 of PEEP. Chest x-ray reporting extensive subcutaneous emphysema with no change in bibasilar opacities. Levophed weaned off. Maintained on diprovan, Nimbex, fentanyl drips. Covid cocktail. Afebrile, T-max 99.9, WBC 11.8. BUN 36, creatinine 0.58. Blood sugars in the 200s. 03/29/2021 FiO2 50%/+16 of PEEP. Maintained on Levophed ,Nimbex and fentanyl drips. Chest x-ray reporting continued bilateral infiltrates, worsening subcutaneous emphysema. 3 catheters placed in left anterior chest wall right and left supraclavicular areas for decompression.Afebrile, T-max 99.4. 04/01/2021 vent dependent,FIO2 55%/+12 Peep. Maintained on Nimbex, Levophed diprovan and fentanyl drips. Chest x-ray reporting continued bilateral peripheral basilar Covid pneumonia without significant change, improving bilateral subcutaneous emphysema. Afebrile, T-max 99.1, WBC 12.5, Sputum reporting MSSA Evaluated by cardiology, echo ordered and pending. 04/02/2021 FiO2 50%/+15 of PEEP. Chest x-ray reporting bilateral airspace disease consistent with Covid pneumonia, improving subcutaneous emphysema. Maintained on diprovan, fentanyl, Nimbex. Levophed off and on throughout the night, currently off. Echo pending. Currently afebrile, T-max 99.1, WBC 12.2. D-dimer decreased to 1.1, LDH and CRP increased. 04/03/2021 FiO2 50/+15 of PEEP. Chest x-ray reporting similar bilateral airspace disease with subcutaneous emphysema. Maintained on Nimbex, fentanyl and diprovan. Echo reporting hyperdynamic systolic function, EF greater than 70% moderate pulmonary hypertension. 04/04/2021 remains vent dependent, FiO2 50%/PEEP of 15. Continues on Unasyn for MSSA-sputum, cold faded cocktail. Chest x-ray reporting persistent with slight improving peripheral and basilar Covid pneumonia. Maintained on Nimbex, fentanyl, diprovan. Weaning of paralytics in progress .Sinus rhythm. Sodium 133, Potassium 3.4. Inflammatory markers trending down with the exception of [id number] increased. Blood sugars controlled. Objective - Vital Signs Vital signs: Vital Signs Temp 98.6 F 04/04/21 04:00 Pulse 83 04/04/21 07:00 Resp 26 H 04/04/21 07:00 BP 127/108 04/03/21 19:00 Pulse Ox 94 L 04/04/21 07:00 Intake & Output 04/03/21 04/04/21 04/04/21 18:59 06:59 18:59 Intake Total 571.776 8291.691 141.460 Output Total 690 935 125 Balance -64.820 383.691 16.460 Weight 88 kg 88 kg Intake: IV 203 273 20 Sodium Chloride 0.9% 1, 200 240 20 000 ml @ 20 mls/hr IV . Q24H [facility] Rx#:[id number] pressure bag 3 33 Intake, IV Titration 422.180 626.691 102.460 Amount Cisatracurium 200 mg In 160.312 22.781 Sodium Chloride 0.9% 180 ml @ 1 MCG/KG/MIN 4.218 mls/hr IV .Q24H [facility] Rx#: [id number] Norepinephrine 32 mg In 5.668 14.579 Sodium Chloride 0.9% 218 ml @ 0.05 MCG/KG/MIN 1. 828 mls/hr IV .Q24H [facility] Rx#:[id number] Sodium Chloride 0.9% 1, 40 000 ml @ 20 mls/hr IV . Q24H [facility] Rx#:[id number] fentaNYL (PF). 1,000 mcg 189.832 200.000 79.679 In Sodium Chloride 0.9% 80 ml @ 0.5 MCG/KG/HR 3. 515 mls/hr IV .Q24H [facility] Rx#:[id number] propofoL 1,000 mg In 186.68 251.80 Empty Bag 1 bag @ Titrate IV .Q0M [facility] Rx#: [id number] Tube Feeding 209 19 Other 210 Output: Urine 690 935 125 Other: Voiding Method Indwelling Catheter Indwelling Catheter ABP, PAP, CO, CI - Last Documented Arterial Blood Pressure 180/87 - Exam Limited PHYSICAL EXAM on a intubated covid patient: VITAL SIGNS: As above GENERAL: Maintained on mechanical ventilator, sedated and on paralytics CARDIOVASCULAR: S1, S2 regular. Telemetry sinus rhythm ABD: Nondistended NERVOUS SYSTEM: Unable to evaluate, patient sedated and on paralytics - Labs CBC & Chem 7: 04/04/21 04:15 04/04/21 04:15 Labs: Abnormal Lab Results - Last 24 Hours (Table) 04/03/21 04/03/21 04/03/21 Range/Units 12:35 13:40 17:31 RBC (3.80-5.40) m/uL Hgb (11.4-16.0) gm/dL Hct (34.0-46.0) % Plt Count (150-450) k/uL D-Dimer (<0.60) mg/L FEU ABG pH (7.35-7.45) ABG pO2 (83-108) mmHg ABG HCO3 (21-25) mmol/L ABG Total CO2 (19-24) mmol/L ABG O2 Saturation (94-97) % Sodium (137-145) mmol/L Potassium (3.5-5.1) mmol/L Creatinine (0.52-1.04) mg/dL Glucose (74-99) mg/dL POC Glucose (mg/dL) 150 H 172 H 220 H (75-99) mg/dL Calcium (8.4-10.2) mg/dL Total Bilirubin (0.2-1.3) mg/dL AST (14-36) U/L ALT (4-34) U/L Alkaline Phosphatase (38-126) U/L Lactate Dehydrogenase (313-618) U/L C-Reactive Protein (<1.0) mg/dL Total Protein (6.3-8.2) g/dL Albumin (3.5-5.0) g/dL 04/03/21 04/04/21 04/04/21 Range/Units 23:40 04:15 04:15 RBC 3.46 L (3.80-5.40) m/uL Hgb 10.5 L (11.4-16.0) gm/dL Hct 31.6 L (34.0-46.0) % Plt Count 542 H (150-450) k/uL D-Dimer 2.15 H (<0.60) mg/L FEU ABG pH (7.35-7.45) ABG pO2 (83-108) mmHg ABG HCO3 (21-25) mmol/L ABG Total CO2 (19-24) mmol/L ABG O2 Saturation (94-97) % Sodium (137-145) mmol/L Potassium (3.5-5.1) mmol/L Creatinine (0.52-1.04) mg/dL Glucose (74-99) mg/dL POC Glucose (mg/dL) 127 H (75-99) mg/dL Calcium (8.4-10.2) mg/dL Total Bilirubin (0.2-1.3) mg/dL AST (14-36) U/L ALT (4-34) U/L Alkaline Phosphatase (38-126) U/L Lactate Dehydrogenase (313-618) U/L C-Reactive Protein (<1.0) mg/dL Total Protein (6.3-8.2) g/dL Albumin (3.5-5.0) g/dL 04/04/21 04/04/21 04/04/21 Range/Units 04:15 05:28 05:50 RBC (3.80-5.40) m/uL Hgb (11.4-16.0) gm/dL Hct (34.0-46.0) % Plt Count (150-450) k/uL D-Dimer (<0.60) mg/L FEU ABG pH 7.49 H (7.35-7.45) ABG pO2 61 L (83-108) mmHg ABG HCO3 33 H (21-25) mmol/L ABG Total CO2 34 H (19-24) mmol/L ABG O2 Saturation 92.0 L (94-97) % Sodium 133 L (137-145) mmol/L Potassium 3.4 L (3.5-5.1) mmol/L Creatinine 0.46 L (0.52-1.04) mg/dL Glucose 113 H (74-99) mg/dL POC Glucose (mg/dL) 135 H (75-99) mg/dL Calcium 8.1 L (8.4-10.2) mg/dL Total Bilirubin 0.1 L (0.2-1.3) mg/dL AST 40 H (14-36) U/L ALT 82 H (4-34) U/L Alkaline Phosphatase 181 H (38-126) U/L Lactate Dehydrogenase 823 H (313-618) U/L C-Reactive Protein 7.1 H (<1.0) mg/dL Total Protein 4.5 L (6.3-8.2) g/dL Albumin 2.0 L (3.5-5.0) g/dL Assessment and Plan Assessment: Acute COVID-19 pneumonia, sputum cultures reporting MSSA. Acute hypoxic respiratory failure secondary to the above, mechanical vent dependent Subcutaneous emphysema and pneumomediastinum secondary to Covid., Status post 3 decompression catheters placed. Hyponatremia, mild, resolved Diabetes mellitus, hyperglycemic hemoglobin A1c 6.5, in addition to steroid contribution Hypothyroidism Hyperlipidemia Plan: Continue on current medication regime ,monitoring and symptomatic treatment. Covid cocktail. ICU management as per corporate strategist.trach and PEG placement currently being discussed .Prognosis guarded given multiple complex medical issues. The impression and plan of care has been dictated as directed. : I performed a history and examination of this patient, discussed the same with the dictator. I agree with the dictator's note ,documented as a scribe. Any additional findings or plans will be noted.
--- NOTE | 2021-04-04 16:30 | P.GSCN ---
History of Present Illness Consult date: 04/04/21 History of present illness: CHIEF COMPLAINT: COVID-19 pneumonia HISTORY OF PRESENT ILLNESS: This is a 65-year-old female who presented to the hospital on 03/19/2021 with worsening shortness of breath and evidence of COVID- 19 pneumonia. Patient tested positive for Covid on 03/18/2021. Patient required to be intubated and placed on mechanical ventilation on 03/25/2021. Patient has been having hypotension requiring levo norepinephrine. Her Nimbex is currently off. She is requiring a PEEP of 15 and FiO2 of 50%. Patient did have pneumomediastinum with subcutaneous emphysema and per pulmonary service is mainly resolved. Patient requiring prolonged mechanical ventilation. Surgical service has been consult for tracheostomy and PEG tube placement. PAST MEDICAL HISTORY: Diabetes Mellitus, Hyperlipidemia, Hypertension, Osteoarthritis PAST SURGICAL HISTORY: Appendectomy, Orthopedic Surgery, Tonsillectomy MEDICATIONS: See list. ALLERGIES: See list. SOCIAL HISTORY: No illicit drug use. REVIEW OF SYSTEMS: Unable to obtain. Patient intubated and sedated PHYSICAL EXAM: VITAL SIGNS: Reviewed GENERAL: Well-developed in no acute distress. HEENT: Head is atraumatic, normocephalic. No nasal drainage. ABDOMEN: Soft. Obese. Nondistended. NEUROLOGIC: Intubated and sedated LABORATORY DATA: WBC 10.1 Hgb 10.5 platelets 452 Sodium 133 potassium 3.4 creatinine 0.46 Elevated LFTs Elevated d-dimer Albumin 2.0 IMAGING: ASSESSMENT: 1. Acute hypoxic respiratory failure secondary to COVID-19 pneumonia 2. Severe protein calorie malnutrition PLAN: -Patient scheduled for tracheostomy and PEG tube placement tomorrow, 04/05/[address] lucas -Hold tube feedings after midnight -Hold Lovenox in a.m. Physician Aviation Consultant note has been reviewed by physician. Signing provider agrees with the documented findings, assessment, and plan of care. Past Medical History Past Medical History: Diabetes Mellitus, Hyperlipidemia, Hypertension, Osteoarthritis (OA) Additional Past Medical History / Comment(s): BUNION LEFT FOOT History of Any Multi-Drug Resistant Organisms: None Reported Past Surgical History: Appendectomy, Orthopedic Surgery, Tonsillectomy Additional Past Surgical History / Comment(s): BRY FEET MULT SX, CYST REMOVED left WRIST Past Anesthesia/Blood Transfusion Reactions: No Reported Reaction Past Psychological History: No Psychological Hx Reported Smoking Status: Never smoker Past Alcohol Use History: Occasional Past Drug Use History: None Reported Additional Drug Use History / Comment(s): pt states she drinks very occasionally - Past Family History Father Family Medical History: Cancer Additional Family Medical History / Comment(s): SKIN Sister(s) Family Medical History: Cancer Additional Family Medical History / Comment(s): SKIN Medications and Allergies Home Medications Medication Instructions Recorded Confirmed Type Atorvastatin [Lipitor] 40 mg PO DAILY 09/28/15 03/18/21 History Glimepiride [Amaryl] 1 mg PO BID 09/28/15 03/18/21 History metFORMIN HCL [Glucophage] 1,000 mg PO BID 09/28/15 03/18/21 History Levothyroxine Sodium [Synthroid] 75 mcg PO DAILY 03/18/21 03/18/21 History Semaglutide [Ozempic] 0.25 mg SQ SA 03/18/21 03/18/21 History ramipriL [Altace] 2.5 mg PO HS 03/18/21 03/18/21 History Allergies Allergy/AdvReac Type Severity Reaction Status Date / Time onion Allergy Unknown Verified 03/18/21 19:18 Surgical - Exam Vital Signs Temp Pulse Resp BP Pulse Ox 99.1 F 109 H 20 105/73 88 L 03/18/21 15:35 03/18/21 15:35 03/18/21 15:35 03/18/21 15:35 03/18/21 15:35 Results - Labs 04/04/21 04:15 04/04/21 04:15 Abnormal Lab Results - Last 24 Hours (Table) 04/03/21 04/03/21 04/04/21 Range/Units 17:31 23:40 04:15 RBC 3.46 L (3.80-5.40) m/uL Hgb 10.5 L (11.4-16.0) gm/dL Hct 31.6 L (34.0-46.0) % Plt Count 542 H (150-450) k/uL D-Dimer (<0.60) mg/L FEU ABG pH (7.35-7.45) ABG pO2 (83-108) mmHg ABG HCO3 (21-25) mmol/L ABG Total CO2 (19-24) mmol/L ABG O2 Saturation (94-97) % Sodium (137-145) mmol/L Potassium (3.5-5.1) mmol/L Creatinine (0.52-1.04) mg/dL Glucose (74-99) mg/dL POC Glucose (mg/dL) 220 H 127 H (75-99) mg/dL Calcium (8.4-10.2) mg/dL Total Bilirubin (0.2-1.3) mg/dL AST (14-36) U/L ALT (4-34) U/L Alkaline Phosphatase (38-126) U/L Lactate Dehydrogenase (313-618) U/L C-Reactive Protein (<1.0) mg/dL Total Protein (6.3-8.2) g/dL Albumin (3.5-5.0) g/dL 04/04/21 04/04/21 04/04/21 Range/Units 04:15 04:15 05:28 RBC (3.80-5.40) m/uL Hgb (11.4-16.0) gm/dL Hct (34.0-46.0) % Plt Count (150-450) k/uL D-Dimer 2.15 H (<0.60) mg/L FEU ABG pH (7.35-7.45) ABG pO2 (83-108) mmHg ABG HCO3 (21-25) mmol/L ABG Total CO2 (19-24) mmol/L ABG O2 Saturation (94-97) % Sodium 133 L (137-145) mmol/L Potassium 3.4 L (3.5-5.1) mmol/L Creatinine 0.46 L (0.52-1.04) mg/dL Glucose 113 H (74-99) mg/dL POC Glucose (mg/dL) 135 H (75-99) mg/dL Calcium 8.1 L (8.4-10.2) mg/dL Total Bilirubin 0.1 L (0.2-1.3) mg/dL AST 40 H (14-36) U/L ALT 82 H (4-34) U/L Alkaline Phosphatase 181 H (38-126) U/L Lactate Dehydrogenase 823 H (313-618) U/L C-Reactive Protein 7.1 H (<1.0) mg/dL Total Protein 4.5 L (6.3-8.2) g/dL Albumin 2.0 L (3.5-5.0) g/dL 04/04/21 04/04/21 Range/Units 05:50 11:12 RBC (3.80-5.40) m/uL Hgb (11.4-16.0) gm/dL Hct (34.0-46.0) % Plt Count (150-450) k/uL D-Dimer (<0.60) mg/L FEU ABG pH 7.49 H (7.35-7.45) ABG pO2 61 L (83-108) mmHg ABG HCO3 33 H (21-25) mmol/L ABG Total CO2 34 H (19-24) mmol/L ABG O2 Saturation 92.0 L (94-97) % Sodium (137-145) mmol/L Potassium (3.5-5.1) mmol/L Creatinine (0.52-1.04) mg/dL Glucose (74-99) mg/dL POC Glucose (mg/dL) 158 H (75-99) mg/dL Calcium (8.4-10.2) mg/dL Total Bilirubin (0.2-1.3) mg/dL AST (14-36) U/L ALT (4-34) U/L Alkaline Phosphatase (38-126) U/L Lactate Dehydrogenase (313-618) U/L C-Reactive Protein (<1.0) mg/dL Total Protein (6.3-8.2) g/dL Albumin (3.5-5.0) g/dL Diabetes panel 04/04/21 Range/Units 04:15 Sodium 133 L (137-145) mmol/L Potassium 3.4 L (3.5-5.1) mmol/L Chloride 98 (98-107) mmol/L Carbon Dioxide 30 (22-30) mmol/L BUN 16 (7-17) mg/dL Creatinine 0.46 L (0.52-1.04) mg/dL Glucose 113 H (74-99) mg/dL Calcium 8.1 L (8.4-10.2) mg/dL AST 40 H (14-36) U/L ALT 82 H (4-34) U/L Alkaline Phosphatase 181 H (38-126) U/L Total Protein 4.5 L (6.3-8.2) g/dL Albumin 2.0 L (3.5-5.0) g/dL Calcium panel 04/04/21 Range/Units 04:15 Calcium 8.1 L (8.4-10.2) mg/dL Albumin 2.0 L (3.5-5.0) g/dL Pituitary panel 04/04/21 Range/Units 04:15 Sodium 133 L (137-145) mmol/L Potassium 3.4 L (3.5-5.1) mmol/L Chloride 98 (98-107) mmol/L Carbon Dioxide 30 (22-30) mmol/L BUN 16 (7-17) mg/dL Creatinine 0.46 L (0.52-1.04) mg/dL Glucose 113 H (74-99) mg/dL Calcium 8.1 L (8.4-10.2) mg/dL Adrenal panel 04/04/21 Range/Units 04:15 Sodium 133 L (137-145) mmol/L Potassium 3.4 L (3.5-5.1) mmol/L Chloride 98 (98-107) mmol/L Carbon Dioxide 30 (22-30) mmol/L BUN 16 (7-17) mg/dL Creatinine 0.46 L (0.52-1.04) mg/dL Glucose 113 H (74-99) mg/dL Calcium 8.1 L (8.4-10.2) mg/dL Total Bilirubin 0.1 L (0.2-1.3) mg/dL AST 40 H (14-36) U/L ALT 82 H (4-34) U/L Alkaline Phosphatase 181 H (38-126) U/L Total Protein 4.5 L (6.3-8.2) g/dL Albumin 2.0 L (3.5-5.0) g/dL
[2021-04-04 17:19] LABS: Glucose,Whole Blood 93 mg/dL (75-99)
[2021-04-04] MEDS ORDERED: Magnesium Replacement Protocol 1 EACH MISC MISCELLANE PRN (19:19)
[2021-04-04] MEDS: lisinopriL 10 MG TAB PO SCH (20:57)
[2021-04-04] MEDS: ATORVASTATIN 40 MG TAB PO SCH (20:57)
[2021-04-04] MEDS ORDERED: POTASSIUM BICARB-CITRIC ACID 25 MEQ TABLET.EFF PO SCH (23:00)
--- NOTE | 2021-04-04 23:17 | XR ---
EXAMINATION TYPE: XR chest 1V DATE OF EXAM: 04/04/2021 COMPARISON: 04/04/2021 HISTORY: Respiratory failure TECHNIQUE: Single view FINDINGS: There is endotracheal tube 4.5 cm from the jese. There is nasogastric tube in the stomach . There is some patchy interstitial peripheral pulmonary infiltrate. There is some coalescent density at both lung bases. There is left subclavian catheter with tip in the superior vena cava. IMPRESSION: Moderate patchy pulmonary infiltrates which appear the same or slightly worse than exam t his morning.
[2021-04-04 23:24] LABS: Glucose,Whole Blood 118 mg/dL (75-99)
[2021-04-05] MEDS: INSULIN ASPART (NovoLOG) 100 UNIT/ML VIAL SQ SCH ×5 (01:00→23:43)
[2021-04-05] MEDS: SODIUM CHLORIDE 0.9% 1,000 ML IV SCH (01:33)
[2021-04-05] MEDS: fentaNYL (PF). 1,000 MCG in SODIUM CHLORIDE 0.9% 80 ML IV SCH ×4 (01:59→18:25)
[2021-04-05 04:11] LABS: Basophils # (A) 0.1 k/uL (0-0.2); Basophils % (A) 0 %; Eosinophils # (A) 0.2 k/uL (0-0.7); Eosinophils % (A) 1 %; HCT 32.6 % (34.0-46.0); HGB 10.7 gm/dL (11.4-16.0); Lymphocytes % (A) 6 %; MCH 30.5 pg (25.0-35.0); MCHC 32.9 g/dL (31.0-37.0); MCV 92.6 fL (80.0-100.0); Mean Platelet Volume 7.8; Monocytes # (A) 0.8 k/uL (0-1.0); Monocytes % (A) 5 %; Neutrophils # (A) 14.7 k/uL (1.3-7.7); Neutrophils % (A) 87 %; Platelet Count 555 k/uL (150-450); RBC 3.52 m/uL (3.80-5.40); RDW 14.6 % (11.5-15.5); WBC 16.9 k/uL (3.8-10.6)
[2021-04-05 04:32] LABS: ALT 86 U/L (4-34); AST 89 U/L (14-36); African American GFR (CKD) >90 (>60 ml/min/1.73 sqM); Albumin 2.1 g/dL (3.5-5.0); Alkaline Phosphatase 222 U/L (38-126); Anion Gap 5 mmol/L; Blood Urea Nitrogen 14 mg/dL (7-17); Calcium 8.2 mg/dL (8.4-10.2); Carbon Dioxide 32 mmol/L (22-30); Chloride 96 mmol/L (98-107); Glucose 160 mg/dL (74-99); LDH 1434 U/L (313-618); Magnesium 1.6 mg/dL (1.6-2.3); Non-African American GFR(CKD) >90 (>60 ml/min/1.73 sqM); Potassium 4.5 mmol/L (3.5-5.1); Sodium 133 mmol/L (137-145); Total Bilirubin 0.6 mg/dL (0.2-1.3); Total Protein 4.7 g/dL (6.3-8.2)
[2021-04-05 04:45] LABS: C Reactive Protein 21.6 mg/dL (<1.0)
[2021-04-05 05:43] LABS: Glucose,Whole Blood 183 mg/dL (75-99)
[2021-04-05] MEDS: AMPICILLIN-SULBACTAM 1.5 GM in SODIUM CHLORIDE 0.9% 50 ML IVPB SCH ×4 (05:51→23:33)
[2021-04-05] MEDS: MAGNESIUM SULFATE-D5W PMX 1 GM in DEXTROSE/WATER 1 100ML.BAG IVPB SCH ×2 (05:51→10:03)
[2021-04-05] MEDS: CISATRACURIUM 200 MG in SODIUM CHLORIDE 0.9% 180 ML IV SCH (05:58)
[2021-04-05 06:07] LABS: ABG Base Excess 9.2 mmol/L; ABG HCO3 33 mmol/L (21-25); ABG Oxygen Saturation 97.8 % (94-97); ABG PCO2 49 mmHg (35-45); ABG PH 7.44 (7.35-7.45); ABG PO2 96 mmHg (83-108); ABG TCO2 35 mmol/L (19-24); Allen Test Performed? Yes
[2021-04-05] MEDS: LEVOTHYROXINE 75 MCG TAB PO SCH (06:49)
[2021-04-05] MEDS ORDERED: fentaNYL (PF) 50 MCG/ML 20 ML VIAL ONE (07:19)
--- NOTE | 2021-04-05 08:25 | XR ---
EXAMINATION TYPE: XR chest 1V portable DATE OF EXAM: 04/05/2021 COMPARISON: NONE HISTORY: Respiratory distress TECHNIQUE: Single frontal view of the chest is obtained. FINDINGS: ET tube and NG tube are satisfactory. Left subclavian CVC tip at the lower SVC. Heart norm al size. Peripheral and basilar airspace opacities persist but show slight improvement from prior. IMPRESSION: Bilateral infiltrate stable.
[2021-04-05] MEDS: ENOXAPARIN 40 MG/0.4 ML SYRINGE SQ SCH (09:22)
[2021-04-05] MEDS: ALBUTEROL HFA INHALER INHALATION SCH ×4 (09:26→20:40)
[2021-04-05] MEDS: INSULIN DETEMIR (LEVEMIR) 100 UNIT/ML SYR SQ SCH (10:28)
[2021-04-05] MEDS: DEXAMETHASONE SOD PHOSPHATE 10 MG/ML 1 ML VIAL IVP SCH (10:29)
[2021-04-05] MEDS: ASCORBIC ACID 500 MG TAB PO SCH (10:29)
[2021-04-05] MEDS: CHLORHEXIDINE GLUCONATE 15 ML CUP MUCOUS MEM SCH ×2 (10:29→21:19)
[2021-04-05] MEDS: CHOLECALCIFEROL 25 MCG (1000 IU) TABLET PO SCH (10:29)
[2021-04-05] MEDS: ZINC SULFATE 220 MG CAP PO SCH (10:29)
[2021-04-05] MEDS: PANTOPRAZOLE 40 MG/10 ML VIAL IVP SCH (10:29)
[2021-04-05] MEDS: ARTIFICIAL TEARS-HYPROMELLOSE DROPS 15 ML BTL BOTH EYES SCH ×4 (10:30→21:18)
--- NOTE | 2021-04-05 10:35 | P.PN ---
Subjective Progress Note Date: 04/05/21 Principal diagnosis: COVID-19 pneumonia The patient is seen today 04/03/2021 in follow-up in the intensive care unit. She had acute hypoxemic respiratory failure secondary to COVID-19 pneumonia. She was intubated on 03/25/2021. She remains intubated and on mechanical ventilator in assist control mode with a rate of 26, tidal volume 375, FiO2 50% and a PEEP of 15. Morning blood gases revealed a PaO2 of 82, pCO2 45 and a pH of 7.47. She remains on Nimbex at 1.7 mcg/kg/m, sentinel at 2.5 mcg/kg per hour, propofol at 50 mcg/kg/m. 0.9 normal saline at 20 miles per hour. She is being nourished with vital AF at 23 ML's per hour which is goal. Chest x-ray continues to show bilateral patchy infiltrates consistent with COVID-19 pneumonia. No evidence of pneumothorax or pleural effusion. Sputum cultures positive for MSSA. She is currently on Unasyn. White Count 11.6. Hemoglobin 11.2. D-dimer 1.76. Sodium 133. Potassium 3.8. Creatinine 0.49. AST 67. ALT 116. Alk phos 207. LDH 1016. C-reactive protein 7.8. She remains on Decadron, Lovenox, vitamin supplements. She has not been tolerating daily interruption of sedation. She becomes quite a synchronous with the ventilator. Most likely will need tracheostomy and PEG tube placements. The patient is seen today 04/04/2021 in follow-up in the intensive care unit. She remains intubated on mechanical ventilator. Current settings are assist control at a rate of 26, tidal on 375, FiO2 50% and a PEEP of 15. Morning blood gases reveal a pO2 of 61, pCO2 44, pH 7.49. She is sedated on propofol 50 mcg/ kg/m. Nimbex at 1.5 mcg/m. Fentanyl at 2 mcg/kg/h. She is being nourished with vital AF at 19 ML's per hour. Normal saline at 20 ML's per hour. She's had a very labile blood pressure. At times requiring levo norepinephrine and at times requiring Cleviprex. Currently in sinus rhythm. White count 10.1. Hemoglobin 10.5. D-dimer 2.15. Sodium 133. Potassium 3.4. Creatinine 0.46. Glucose 113. AST 40. ALT 82. Alk phos 181. LDH 823. C-reactive protein 7.1. She remains on Unasyn for MSSA in the sputum, bronchodilators. Decadron, vitamin supplement and Lovenox. The patient is seen today 04/05/2021 in follow-up in the intensive care unit. She remains intubated on the mechanical ventilator. Current settings are assist-control mode at a rate of 26, tidal volume 375, FiO2 60% and a PEEP of 15. Morning blood gases reveal a P O2 of 96, pCO2 49, pH 7.44. She is sedated on propofol 50 mcg/kg/m, Nimbex at 3 mcg/kg/m, fentanyl at 2.5 mcg/kg/h, norepinephrine at 0.15 mcg/kg/m. Normal saline at 20 miles per hour. Vital AF is currently on hold for possible trach and PEG tube placements today. She is currently in normal sinus rhythm. She did develop a fever overnight up to 102. She did have hypotension in the norepinephrine was resumed. Previous sputum culture was positive for MSSA. Follow-up blood, sputum and urine cultures pending. White count 16.9. Hemoglobin 10.7. Platelets 55. D-dimer 2.47. Sodium 133. Potassium 4.5. Bicarb 32. Creatinine 0.50. Glucose 160. AST 89. ALT 86. LDH 1434. C-reactive protein 21.6. She is continued on antibiotics in the form of Unasyn. Bronchodilators. Decadron, Lovenox and vitamin supplements. Objective - Vital Signs Vital signs: Vital Signs Temp 99.7 F H 04/05/21 04:00 Pulse 62 04/05/21 07:15 Resp 14 04/05/21 07:15 BP 117/60 04/05/21 07:15 Pulse Ox 97 04/05/21 07:15 Intake & Output 04/04/21 04/05/21 04/05/21 18:59 06:59 18:59 Intake Total 1067.123 912.306 118.209 Output Total 2750 1275 45 Balance -1682.877 -362.694 73.209 Weight 85.5 kg 85.5 kg Intake: IV 273 264 23 Sodium Chloride 0.9% 1, 240 160 20 000 ml @ 20 mls/hr IV . Q24H [facility] Rx#:[id number] pressure bag 33 104 3 Intake, IV Titration 386.123 474.306 95.209 Amount Cisatracurium 200 mg In 22.781 102.857 Sodium Chloride 0.9% 180 ml @ 1 MCG/KG/MIN 4.218 mls/hr IV .Q24H [facility] Rx#: [id number] Norepinephrine 32 mg In 16.892 Sodium Chloride 0.9% 218 ml @ 0.05 MCG/KG/MIN 1. 828 mls/hr IV .Q24H [facility] Rx#:[id number] fentaNYL (PF). 1,000 mcg 163.342 173.597 95.209 In Sodium Chloride 0.9% 80 ml @ 0.5 MCG/KG/HR 3. 515 mls/hr IV .Q24H [facility] Rx#:[id number] propofoL 1,000 mg In 200 180.96 Empty Bag 1 bag @ Titrate IV .Q0M [facility] Rx#: [id number] Tube Feeding 228 114 Other 180 60 Output: Urine 2750 1275 45 Other: Voiding Method Indwelling Catheter Indwelling Catheter ABP, PAP, CO, CI - Last Documented Arterial Blood Pressure 107/53 - Exam GENERAL EXAM: Intubated, sedated, paralyzed 65-year-old female patient, maintain ing O2 saturations in the 90s on 60% FiO2 and a PEEP of 15, comfortable in no apparent distress. HEAD: Normocephalic. EYES: Sluggish reaction of pupils, equal size. NOSE: Clear with pink turbinates. THROAT: Oral endotracheal and gastric tube secured in place. No erythema or exudates. NECK: No masses, no JVD. CHEST: No chest wall deformity. LUNGS: Equal air entry with coarse crackles in the bilateral bases. CVS: S1 and S2 normal with no audible murmur, regular rhythm. ABDOMEN: No hepatosplenomegaly, normal bowel sounds, no guarding or rigidity. SPINE: No scoliosis or deformity SKIN: No rashes CENTRAL NERVOUS SYSTEM: Sedated, paralyzed, tone is normal in all 4 extremities. EXTREMITIES: There is trace peripheral edema. No clubbing, no cyanosis. Peripheral pulses are intact.l - Labs CBC & Chem 7: 04/05/21 03:55 04/05/21 03:55 Labs: Abnormal Lab Results - Last 24 Hours (Table) 04/04/21 04/04/21 04/05/21 Range/Units 11:12 23:20 03:55 WBC 16.9 H (3.8-10.6) k/uL RBC 3.52 L (3.80-5.40) m/uL Hgb 10.7 L (11.4-16.0) gm/dL Hct 32.6 L (34.0-46.0) % Plt Count 555 H (150-450) k/uL Neutrophils # 14.7 H (1.3-7.7) k/uL D-Dimer (<0.60) mg/L FEU ABG pCO2 (35-45) mmHg ABG HCO3 (21-25) mmol/L ABG Total CO2 (19-24) mmol/L ABG O2 Saturation (94-97) % Sodium (137-145) mmol/L Chloride (98-107) mmol/L Carbon Dioxide (22-30) mmol/L Creatinine (0.52-1.04) mg/dL Glucose (74-99) mg/dL POC Glucose (mg/dL) 158 H 118 H (75-99) mg/dL Calcium (8.4-10.2) mg/dL AST (14-36) U/L ALT (4-34) U/L Alkaline Phosphatase (38-126) U/L Lactate Dehydrogenase (313-618) U/L C-Reactive Protein (<1.0) mg/dL Total Protein (6.3-8.2) g/dL Albumin (3.5-5.0) g/dL 04/05/21 04/05/21 04/05/21 Range/Units 03:55 03:55 05:41 WBC (3.8-10.6) k/uL RBC (3.80-5.40) m/uL Hgb (11.4-16.0) gm/dL Hct (34.0-46.0) % Plt Count (150-450) k/uL Neutrophils # (1.3-7.7) k/uL D-Dimer 2.47 H (<0.60) mg/L FEU ABG pCO2 (35-45) mmHg ABG HCO3 (21-25) mmol/L ABG Total CO2 (19-24) mmol/L ABG O2 Saturation (94-97) % Sodium 133 L (137-145) mmol/L Chloride 96 L (98-107) mmol/L Carbon Dioxide 32 H (22-30) mmol/L Creatinine 0.50 L (0.52-1.04) mg/dL Glucose 160 H (74-99) mg/dL POC Glucose (mg/dL) 183 H (75-99) mg/dL Calcium 8.2 L (8.4-10.2) mg/dL AST 89 H (14-36) U/L ALT 86 H (4-34) U/L Alkaline Phosphatase 222 H (38-126) U/L Lactate Dehydrogenase 1434 H (313-618) U/L C-Reactive Protein 21.6 H (<1.0) mg/dL Total Protein 4.7 L (6.3-8.2) g/dL Albumin 2.1 L (3.5-5.0) g/dL 04/05/21 Range/Units 06:30 WBC (3.8-10.6) k/uL RBC (3.80-5.40) m/uL Hgb (11.4-16.0) gm/dL Hct (34.0-46.0) % Plt Count (150-450) k/uL Neutrophils # (1.3-7.7) k/uL D-Dimer (<0.60) mg/L FEU ABG pCO2 49 H (35-45) mmHg ABG HCO3 33 H (21-25) mmol/L ABG Total CO2 35 H (19-24) mmol/L ABG O2 Saturation 97.8 H (94-97) % Sodium (137-145) mmol/L Chloride (98-107) mmol/L Carbon Dioxide (22-30) mmol/L Creatinine (0.52-1.04) mg/dL Glucose (74-99) mg/dL POC Glucose (mg/dL) (75-99) mg/dL Calcium (8.4-10.2) mg/dL AST (14-36) U/L ALT (4-34) U/L Alkaline Phosphatase (38-126) U/L Lactate Dehydrogenase (313-618) U/L C-Reactive Protein (<1.0) mg/dL Total Protein (6.3-8.2) g/dL Albumin (3.5-5.0) g/dL Assessment and Plan Assessment: 1 Acute hypoxemic respiratory failure secondary to coronavirus associated pneumonia, status post intubation with mechanical ventilation on 03/25/2021. CT angiogram was negative for pulmonary embolism. She is not making any progress and the plan is for tracheostomy tube and PEG tube placement. She did develop fever and hypotension throughout the night and is currently back on norepinephrine. Remains on Unasyn for now. Follow-up cultures pending. 2 Elevated inflammatory marker secondary to coronavirus infection. 3 Type 2 diabetes mellitus. 4 Hypothyroidism. 5 Hyperlipidemia. 6 Pneumomediastinum with subcutaneous emphysema, mainly resolved. 7 MSSA positive sputum Plan: The patient was seen and evaluated Chest x-ray, ABGs and labs reviewed The patient did develop fever and hypotension throughout the night Blood, urine and sputum cultures pending Remains on Unasyn for now Plan is for tracheostomy and PEG tube placements Remains on Decadron, Lovenox, vitamin supplements We will continue to follow and make further recommendations based on her clinical status Critical care time 36 minutes I, the cosigning physician, performed a history & physical examination of the patient. Lungs sounds with coarse crackles in the posterior bases. Maintaining O2 saturations in the 90s on 60% FiO2 and a PEEP of 15 via the mechanical ventilator. I discussed the assessment and plan of care with my nurse practitioner, Joanie Bryson. I attest to the above note as dictated by her.
[2021-04-05 11:42] LABS: Glucose,Whole Blood 185 mg/dL (75-99)
[2021-04-05] MEDS ORDERED: fentaNYL (PF) 50 MCG/ML 2 ML AMP ONE (11:45)
[2021-04-05] MEDS ORDERED: CISATRACURIUM 10 MG/ML 20 ML VIAL IV ONE (11:45)
[2021-04-05] MEDS ORDERED: ROCURONIUM 10 MG/ML (5 ML VIAL) IV ONE (11:45)
[2021-04-05] MEDS ORDERED: SODIUM CHLORIDE 0.9% 500 ML 500 ML IV ONE (12:00)
--- NOTE | 2021-04-05 12:03 | P.PN ---
Subjective Progress Note Date: 04/05/21 This is 65-year-old female with past medical history of diabetes mellitus, hyperlipidemia, hypertension, osteoarthritis, no smoking history presented to the ER with worsening dyspnea 10 days accompanied by loss of appetite, fatigue, cough. Denies fevers or sweats. Denies muscle aches. On admission patient was febrile with temperature 99.1, WBC 5.2, tachycardic, cachectic, maintaining O2 sats of 88% on room air. Patient's respiratory status has further worsened and currently maintaining O2 sats of mid 90s on 3 L nasal cannula. Displays exertional dyspnea after ambulating from BR. Coronavirus PCR positive. D-dimer 0.39, LDH 1108, CRP 18.6. Chest x-ray reporting reticular and some minimal patc hy opacity's over bilateral lower lungs, left greater than right. Hemoglobin 14.5, platelets 287. Sodium currently 132, potassium 5, BUN 27, creatinine 0.77. A.m. Accu-Chek currently being obtained, the blood sugar 231 last night. Denies chest pain, palpitations. 03/20/2021 continues on covid cocktail .oxygen requirements worsened, currently requiring 10 L high flow nasal cannula to maintain O2 sats in the high 80s to low 90s. Reports had coughing spells last night but no cough this morning .exertional shortness of breath .Denies chest pain, palpitations. Afebrile. Ambulatory markers improving with the exception of mild increase in d- dimer.Calcitonin minimally elevated, 0.12. BMP pending. Blood sugars better improving. 03/21/21 maintaining O2 sats in the low 90s on 2 L nasal cannula. Reports minimal nonproductive cough, exertional shortness of breath, loose stools. Blood sugars controlled .Denies chest pain, palpitations. Denies diaphoresis. Afebrile. 03/22/2021 O2 requirements worsened, currently requiring 15 L high flow. Anxious. Current the afebrile, T-max 99.8, labs pending. Yesterday consuming 50-75% of diet. This morning some hypoglycemia, currently 85. Hemoglobin A1c 6.5 03/25/2021 respiratory status worsened .BiPAP at 100%, maintaining O2 sats of m id 80s, transferred to ICU. Anxious. Precedex initiated. Labs pending. 03/26/21 remains vent dependent with FiO2 70/+14 of PEEP. Maintained on diprovan, fentanyl and Pneumovax. Afebrile, normal WBC. Chest x-ray reporting diffuse interstitial pattern of bilateral infiltrates and pleural effusion. 03/27/2021 remains vent dependent, FiO2 60%/+16 of PEEP. Chest x-ray reporting diffuse pleural-parenchymal changes.Maintained on Nimbex, Levophed, fentanyl, diprovan. Continues on covid cocktail. 03/28/2021 FiO2 50%/+16 of PEEP. Chest x-ray reporting extensive subcutaneous emphysema with no change in bibasilar opacities. Levophed weaned off. Maintained on diprovan, Nimbex, fentanyl drips. Covid cocktail. Afebrile, T-max 99.9, WBC 11.8. BUN 36, creatinine 0.58. Blood sugars in the 200s. 03/29/2021 FiO2 50%/+16 of PEEP. Maintained on Levophed ,Nimbex and fentanyl drips. Chest x-ray reporting continued bilateral infiltrates, worsening subcutaneous emphysema. 3 catheters placed in left anterior chest wall right and left supraclavicular areas for decompression.Afebrile, T-max 99.4. 04/01/2021 vent dependent,FIO2 55%/+12 Peep. Maintained on Nimbex, Levophed diprovan and fentanyl drips. Chest x-ray reporting continued bilateral peripheral basilar Covid pneumonia without significant change, improving bilateral subcutaneous emphysema. Afebrile, T-max 99.1, WBC 12.5, Sputum reporting MSSA Evaluated by cardiology, echo ordered and pending. 04/02/2021 FiO2 50%/+15 of PEEP. Chest x-ray reporting bilateral airspace disease consistent with Covid pneumonia, improving subcutaneous emphysema. Maintained on diprovan, fentanyl, Nimbex. Levophed off and on throughout the night, currently off. Echo pending. Currently afebrile, T-max 99.1, WBC 12.2. D-dimer decreased to 1.1, LDH and CRP increased. 04/03/2021 FiO2 50/+15 of PEEP. Chest x-ray reporting similar bilateral airspace disease with subcutaneous emphysema. Maintained on Nimbex, fentanyl and diprovan. Echo reporting hyperdynamic systolic function, EF greater than 70% moderate pulmonary hypertension. 04/04/2021 remains vent dependent, FiO2 50%/PEEP of 15. Continues on Unasyn for MSSA-sputum, cold faded cocktail. Chest x-ray reporting persistent with slight improving peripheral and basilar Covid pneumonia. Maintained on Nimbex, fentanyl, diprovan. Weaning of paralytics in progress .Sinus rhythm. Sodium 133, Potassium 3.4. Inflammatory markers trending down with the exception of [id number] increased. Blood sugars controlled. 04/05/2021 FiO2 60%/+15 of PEEP; staff reports FiO2 bumped up during the night as patient had desatted. Chest x-ray reporting slight improvement but pe rsistent peripheral basilar airspace opacities. ABGs noted, reporting pO2 of 96. Maintained on diprovan, fentanyl, Nimbex, with norepinephrine resumed. Telemetry sinus rhythm. Scheduled for trach and peg today, tube feeds on hold. Continues on Unasyn, covid cocktail. Afebrile, T-max 101, WBC increased to 16.9 sputum, blood and urine cultures ordered. Inflammatory markers increased. Objective - Vital Signs Vital signs: Vital Signs Temp 99.7 F H 04/05/21 04:00 Pulse 62 04/05/21 07:15 Resp 14 04/05/21 07:15 BP 117/60 04/05/21 07:15 Pulse Ox 97 04/05/21 07:15 Intake & Output 04/04/21 04/05/21 04/05/21 18:59 06:59 18:59 Intake Total 1067.123 912.306 145.446 Output Total 2750 1275 45 Balance -1682.877 -362.694 100.446 Weight 85.5 kg 85.5 kg Intake: IV 273 264 23 Sodium Chloride 0.9% 1, 240 160 20 000 ml @ 20 mls/hr IV . Q24H [facility] Rx#:[id number] pressure bag 33 104 3 Intake, IV Titration 386.123 474.306 122.446 Amount Cisatracurium 200 mg In 22.781 102.857 Sodium Chloride 0.9% 180 ml @ 1 MCG/KG/MIN 4.218 mls/hr IV .Q24H [facility] Rx#: [id number] Norepinephrine 32 mg In 16.892 27.237 Sodium Chloride 0.9% 218 ml @ 0.05 MCG/KG/MIN 1. 828 mls/hr IV .Q24H [facility] Rx#:[id number] fentaNYL (PF). 1,000 mcg 163.342 173.597 95.209 In Sodium Chloride 0.9% 80 ml @ 0.5 MCG/KG/HR 3. 515 mls/hr IV .Q24H [facility] Rx#:[id number] propofoL 1,000 mg In 200 180.96 Empty Bag 1 bag @ Titrate IV .Q0M [facility] Rx#: [id number] Tube Feeding 228 114 Other 180 60 Output: Urine 2750 1275 45 Other: Voiding Method Indwelling Catheter Indwelling Catheter ABP, PAP, CO, CI - Last Documented Arterial Blood Pressure 107/53 - Exam Limited PHYSICAL EXAM on a intubated covid patient: VITAL SIGNS: As above GENERAL: Maintained on mechanical ventilator, sedated and on paralytics CARDIOVASCULAR: S1, S2 regular. Telemetry sinus rhythm ABD: Nondistended NERVOUS SYSTEM: Unable to evaluate, patient sedated and on paralytics - Labs CBC & Chem 7: 04/05/21 03:55 04/05/21 03:55 Labs: Abnormal Lab Results - Last 24 Hours (Table) 04/04/21 04/05/21 04/05/21 Range/Units 23:20 03:55 03:55 WBC 16.9 H (3.8-10.6) k/uL RBC 3.52 L (3.80-5.40) m/uL Hgb 10.7 L (11.4-16.0) gm/dL Hct 32.6 L (34.0-46.0) % Plt Count 555 H (150-450) k/uL Neutrophils # 14.7 H (1.3-7.7) k/uL D-Dimer 2.47 H (<0.60) mg/L FEU ABG pCO2 (35-45) mmHg ABG HCO3 (21-25) mmol/L ABG Total CO2 (19-24) mmol/L ABG O2 Saturation (94-97) % Sodium (137-145) mmol/L Chloride (98-107) mmol/L Carbon Dioxide (22-30) mmol/L Creatinine (0.52-1.04) mg/dL Glucose (74-99) mg/dL POC Glucose (mg/dL) 118 H (75-99) mg/dL Calcium (8.4-10.2) mg/dL AST (14-36) U/L ALT (4-34) U/L Alkaline Phosphatase (38-126) U/L Lactate Dehydrogenase (313-618) U/L C-Reactive Protein (<1.0) mg/dL Total Protein (6.3-8.2) g/dL Albumin (3.5-5.0) g/dL 04/05/21 04/05/21 04/05/21 Range/Units 03:55 05:41 06:30 WBC (3.8-10.6) k/uL RBC (3.80-5.40) m/uL Hgb (11.4-16.0) gm/dL Hct (34.0-46.0) % Plt Count (150-450) k/uL Neutrophils # (1.3-7.7) k/uL D-Dimer (<0.60) mg/L FEU ABG pCO2 49 H (35-45) mmHg ABG HCO3 33 H (21-25) mmol/L ABG Total CO2 35 H (19-24) mmol/L ABG O2 Saturation 97.8 H (94-97) % Sodium 133 L (137-145) mmol/L Chloride 96 L (98-107) mmol/L Carbon Dioxide 32 H (22-30) mmol/L Creatinine 0.50 L (0.52-1.04) mg/dL Glucose 160 H (74-99) mg/dL POC Glucose (mg/dL) 183 H (75-99) mg/dL Calcium 8.2 L (8.4-10.2) mg/dL AST 89 H (14-36) U/L ALT 86 H (4-34) U/L Alkaline Phosphatase 222 H (38-126) U/L Lactate Dehydrogenase 1434 H (313-618) U/L C-Reactive Protein 21.6 H (<1.0) mg/dL Total Protein 4.7 L (6.3-8.2) g/dL Albumin 2.1 L (3.5-5.0) g/dL Assessment and Plan Assessment: Acute COVID-19 pneumonia, sputum cultures reporting MSSA. Acute hypoxic respiratory failure secondary to the above, mechanical vent dependent Subcutaneous emphysema and pneumomediastinum secondary to Covid., Status post 3 decompression catheters placed. Hyponatremia, mild, resolved Diabetes mellitus, hyperglycemic hemoglobin A1c 6.5, in addition to steroid contribution Hypothyroidism Hyperlipidemia Plan: Continue on current medication regime ,monitoring and symptomatic treatment. Fever workup in progress, pancultured. Covid cocktail. ICU management as per independent living instructor.trach and PEG placement pending.Prognosis guarded given multiple complex medical issues. The impression and plan of care has been dictated as directed. : I performed a history and examination of this patient, discussed the same with the dictator. I agree with the dictator's note ,documented as a scribe. Any ad ditional findings or plans will be noted.
[2021-04-05] MEDS: NOREPINEPHRINE 32 MG in SODIUM CHLORIDE 0.9% 218 ML IV SCH (14:24)
--- NOTE | 2021-04-05 14:49 | P.OP ---
Date of Procedure: 04/05/21 Preoperative Diagnosis: Respiratory failure Malnutrition Postoperative Diagnosis: Respiratory failure Malnutrition Procedure(s) Performed: Tracheostomy and PEG tube placement Anesthesia: LARISSA Surgeon: Edward Alvarez Estimated Blood Loss (ml): 5 Pathology: none sent Condition: stable Disposition: PACU Description of Procedure: The patient's placed on the bed in the supine position. The patient received general anesthesia. The neck was prepped and draped in usual sterile fashion. A standard transverse skin incision was made approximately 2 cm above the sternal notch. Using electrocautery the subcutaneous tissues were divided. The platysma was divided. A Wheatlander retractor was placed in the wound. Next the strap muscles were divided in the midline. Another weatlander retractor was placed the wound. The pretracheal fat was then divided with left cautery. The trachea was exposed. At this point the PROJECT ASSOCIATE advance the and the tracheal tube into the right mainstem bronchus. The balloon was inflated. A tracheotomy was then performed between the second and third tracheal rings. The perivascular tissues a gracilis the trachea. The endotracheal tube was brought back under direct vision. And then the #8 Portex tracheostomy tube was placed into the trachea. End-tidal CO2 was confirmed. The patient had been connected to the ventilator. The patient was ventilated satisfactory. The skin incision site was then closed with 3-0 nylon after the retractors were withdrawn. An umbilical tie was used to secure the tracheostomy tube. Next the gastroscope placed oropharynx passed in the esophagus and stomach. There is no evidence of any outlet obstruction. Stomach was insufflated with air. The light reflux seen the anterior abdominal wall. The abdomen was prepped and draped usual fashion. The skin was incised. And the needles placed and stomach under direct visualization. The needle was snared. And the wires placed through the needle and the wire was snared and brought the oropharynx. The PEG tube was placed over top the wire brought down to the stomach. The PEG tube was secured. At the 3 cm narciso. The one-piece bolster was used. Patient tolerated procedure well.
[2021-04-05 17:38] LABS: Glucose,Whole Blood 167 mg/dL (75-99)
[2021-04-05] MEDS: lisinopriL 10 MG TAB PO SCH (21:19)
[2021-04-05] MEDS: ATORVASTATIN 40 MG TAB PO SCH (21:19)
[2021-04-05 23:41] LABS: Glucose,Whole Blood 143 mg/dL (75-99)
[2021-04-06] MEDS: SODIUM CHLORIDE 0.9% 1,000 ML IV SCH (03:20)
[2021-04-06] MEDS: fentaNYL (PF). 1,000 MCG in SODIUM CHLORIDE 0.9% 80 ML IV SCH ×5 (03:36→23:29)
[2021-04-06 05:30] LABS: ALT 84 U/L (4-34); AST 74 U/L (14-36); African American GFR (CKD) >90 (>60 ml/min/1.73 sqM); Albumin 1.9 g/dL (3.5-5.0); Alkaline Phosphatase 167 U/L (38-126); Anion Gap 5 mmol/L; Blood Urea Nitrogen 12 mg/dL (7-17); Calcium 7.9 mg/dL (8.4-10.2); Carbon Dioxide 31 mmol/L (22-30); Chloride 99 mmol/L (98-107); Glucose 88 mg/dL (74-99); LDH 950 U/L (313-618); Non-African American GFR(CKD) >90 (>60 ml/min/1.73 sqM); Potassium 3.7 mmol/L (3.5-5.1); Sodium 135 mmol/L (137-145); Total Bilirubin 0.2 mg/dL (0.2-1.3); Total Protein 4.5 g/dL (6.3-8.2)
[2021-04-06 05:35] LABS: Basophils % (A) 0 %; Eosinophils # (A) 0.3 k/uL (0-0.7); Eosinophils % (A) 2 %; HGB 9.4 gm/dL (11.4-16.0); Lymphocytes # (A) 1.1 k/uL (1.0-4.8); Lymphocytes % (A) 10 %; MCH 29.7 pg (25.0-35.0); MCHC 32.3 g/dL (31.0-37.0); MCV 92.1 fL (80.0-100.0); Mean Platelet Volume 7.9; Monocytes # (A) 0.4 k/uL (0-1.0); Monocytes % (A) 4 %; Neutrophils # (A) 8.4 k/uL (1.3-7.7); Neutrophils % (A) 82 %; Platelet Count 527 k/uL (150-450); RBC 3.15 m/uL (3.80-5.40); RDW 15.2 % (11.5-15.5); WBC 10.2 k/uL (3.8-10.6)
[2021-04-06 05:38] LABS: Glucose,Whole Blood 84 mg/dL (75-99)
[2021-04-06 06:11] LABS: Glucose,Whole Blood 106 mg/dL (75-99)
[2021-04-06] MEDS: LEVOTHYROXINE 75 MCG TAB PO SCH (06:15)
[2021-04-06 06:31] LABS: ABG Base Excess 12.1 mmol/L; ABG HCO3 35 mmol/L (21-25); ABG Oxygen Saturation 97.6 % (94-97); ABG PCO2 45 mmHg (35-45); ABG PO2 86 mmHg (83-108); ABG TCO2 37 mmol/L (19-24)
[2021-04-06] MEDS ORDERED: POTASSIUM CHLORIDE 20 MEQ in WATER FOR INJECTION 1 100ML.BAG IVPB STA (06:31)
[2021-04-06 06:38] LABS: Allen Test Performed? No
--- NOTE | 2021-04-06 06:46 | XR ---
EXAMINATION TYPE: XR chest 1V portable DATE OF EXAM: 04/06/2021 COMPARISON: 04/05/2021 HISTORY: Covid pneumonia TECHNIQUE: Single frontal view of the chest is obtained. FINDINGS: There is a left-sided PICC line terminating in the SVC/R junction. There is a tracheostomy tube. There are mild to moderate multifocal areas of airspace opacity predominantly in the mid lower lung z ones essentially unchanged compared to previous. There is no thorax or large pleural effusion. Heart size is normal vasculature does not appear conges pepe. The osseous structures are intact. IMPRESSION: Scattered bibasilar airspace opacities unchanged compared to previous.
[2021-04-06] MEDS: INSULIN ASPART (NovoLOG) 100 UNIT/ML VIAL SQ SCH ×3 (06:47→17:21)
[2021-04-06] MEDS: AMPICILLIN-SULBACTAM 1.5 GM in SODIUM CHLORIDE 0.9% 50 ML IVPB SCH ×4 (06:48→23:01)
[2021-04-06] MEDS: INSULIN DETEMIR (LEVEMIR) 100 UNIT/ML SYR SQ SCH (07:04)
[2021-04-06] MEDS: ALBUTEROL HFA INHALER INHALATION SCH ×4 (08:10→21:22)
[2021-04-06] MEDS: CISATRACURIUM 200 MG in SODIUM CHLORIDE 0.9% 180 ML IV SCH (08:14)
[2021-04-06] MEDS: DEXAMETHASONE SOD PHOSPHATE 10 MG/ML 1 ML VIAL IVP SCH (08:24)
[2021-04-06] MEDS: ASCORBIC ACID 500 MG TAB PO SCH (08:24)
[2021-04-06] MEDS: CHLORHEXIDINE GLUCONATE 15 ML CUP MUCOUS MEM SCH ×2 (08:24→20:01)
[2021-04-06] MEDS: PANTOPRAZOLE 40 MG/10 ML VIAL IVP SCH (08:24)
[2021-04-06] MEDS: CHOLECALCIFEROL 25 MCG (1000 IU) TABLET PO SCH (08:24)
[2021-04-06] MEDS: ZINC SULFATE 220 MG CAP PO SCH (08:24)
[2021-04-06] MEDS: ARTIFICIAL TEARS-HYPROMELLOSE DROPS 15 ML BTL BOTH EYES SCH ×4 (08:25→21:15)
[2021-04-06] MEDS: ENOXAPARIN 40 MG/0.4 ML SYRINGE SQ SCH (08:25)
[2021-04-06] MEDS ORDERED: propofoL 100 ML IV ONE ×3 (10:12→19:35)
--- NOTE | 2021-04-06 10:34 | P.PN ---
Subjective Progress Note Date: 04/06/21 Principal diagnosis: COVID-19 pneumonia The patient is seen today 04/03/2021 in follow-up in the intensive care unit. She had acute hypoxemic respiratory failure secondary to COVID-19 pneumonia. She was intubated on 03/25/2021. She remains intubated and on mechanical ventilator in assist control mode with a rate of 26, tidal volume 375, FiO2 50% and a PEEP of 15. Morning blood gases revealed a PaO2 of 82, pCO2 45 and a pH of 7.47. She remains on Nimbex at 1.7 mcg/kg/m, sentinel at 2.5 mcg/kg per hour, propofol at 50 mcg/kg/m. 0.9 normal saline at 20 miles per hour. She is being nourished with vital AF at 23 ML's per hour which is goal. Chest x-ray continues to show bilateral patchy infiltrates consistent with COVID-19 pneumonia. No evidence of pneumothorax or pleural effusion. Sputum cultures positive for MSSA. She is currently on Unasyn. White Count 11.6. Hemoglobin 11.2. D-dimer 1.76. Sodium 133. Potassium 3.8. Creatinine 0.49. AST 67. ALT 116. Alk phos 207. LDH 1016. C-reactive protein 7.8. She remains on Decadron, Lovenox, vitamin supplements. She has not been tolerating daily interruption of sedation. She becomes quite a synchronous with the ventilator. Most likely will need tracheostomy and PEG tube placements. The patient is seen today 04/04/2021 in follow-up in the intensive care unit. She remains intubated on mechanical ventilator. Current settings are assist control at a rate of 26, tidal on 375, FiO2 50% and a PEEP of 15. Morning blood gases reveal a pO2 of 61, pCO2 44, pH 7.49. She is sedated on propofol 50 mcg/ kg/m. Nimbex at 1.5 mcg/m. Fentanyl at 2 mcg/kg/h. She is being nourished with vital AF at 19 ML's per hour. Normal saline at 20 ML's per hour. She's had a very labile blood pressure. At times requiring levo norepinephrine and at times requiring Cleviprex. Currently in sinus rhythm. White count 10.1. Hemoglobin 10.5. D-dimer 2.15. Sodium 133. Potassium 3.4. Creatinine 0.46. Glucose 113. AST 40. ALT 82. Alk phos 181. LDH 823. C-reactive protein 7.1. She remains on Unasyn for MSSA in the sputum, bronchodilators. Decadron, vitamin supplement and Lovenox. The patient is seen today 04/05/2021 in follow-up in the intensive care unit. She remains intubated on the mechanical ventilator. Current settings are assist-control mode at a rate of 26, tidal volume 375, FiO2 60% and a PEEP of 15. Morning blood gases reveal a P O2 of 96, pCO2 49, pH 7.44. She is sedated on propofol 50 mcg/kg/m, Nimbex at 3 mcg/kg/m, fentanyl at 2.5 mcg/kg/h, norepinephrine at 0.15 mcg/kg/m. Normal saline at 20 miles per hour. Vital AF is currently on hold for possible trach and PEG tube placements today. She is currently in normal sinus rhythm. She did develop a fever overnight up to 102. She did have hypotension in the norepinephrine was resumed. Previous sputum culture was positive for MSSA. Follow-up blood, sputum and urine cultures pending. White count 16.9. Hemoglobin 10.7. Platelets 55. D-dimer 2.47. Sodium 133. Potassium 4.5. Bicarb 32. Creatinine 0.50. Glucose 160. AST 89. ALT 86. LDH 1434. C-reactive protein 21.6. She is continued on antibiotics in the form of Unasyn. Bronchodilators. Decadron, Lovenox and vitamin supplements. The patient is seen today 04/06/2021 unit. She remains intubated and on the mechanical ventilator. Current settings are assist-control mode with a rate of 26, tidal volume 375, FiO2 55% and a PEEP of 15. Morning blood gases reveal a P O2 of 86, pCO2 45, pH 7.5. We will decrease the FiO2 to 50%. She is sedated on propofol 50 mcg/kg/m, Nimbex at 3 mcg/kg/m. Fentanyl 2.5 mcg/kg per hour. Norepinephrine at 3 mcg/m. Currently on hold she did undergo tracheostomy and PEG tube placement yesterday. Tube feedings will be initiated later this afternoon. Chest x-ray continues to show scattered bibasilar airspace opa cities. Follow-up urine and sputum cultures pending. White count 10.2. Hemoglobin 9.4. D-dimer 1.80. Sodium 135. Potassium 3.7. Creatinine 0.37. Glucose 88. AST 74. ALT 84. LDH 950. C-reactive protein 27.0. She remains afebrile the past 24 hours. Currently on Unasyn. Remains on Decadron, Lovenox, vitamin supplements. Objective - Vital Signs Vital signs: Vital Signs Temp 97.4 F L 04/06/21 04:00 Pulse 83 04/06/21 07:00 Resp 26 H 04/06/21 07:00 BP 104/65 04/06/21 02:00 Pulse Ox 96 04/06/21 07:00 Intake & Output 04/05/21 04/06/21 04/06/21 18:59 06:59 18:59 Intake Total 623.622 696.951 187.328 Output Total 1447 1150 45 Balance -823.378 -453.049 142.328 Weight 85.5 kg 86 kg Intake: IV 92 276 23 Sodium Chloride 0.9% 1, 80 240 20 000 ml @ 20 mls/hr IV . Q24H [facility] Rx#:[id number] pressure bag 12 36 3 Intake, IV Titration 531.622 420.951 164.328 Amount Cisatracurium 200 mg In 200 6.538 Sodium Chloride 0.9% 180 ml @ 1 MCG/KG/MIN 4.218 mls/hr IV .Q24H [facility] Rx#: [id number] Norepinephrine 32 mg In 44.427 30.311 2.147 Sodium Chloride 0.9% 218 ml @ 0.05 MCG/KG/MIN 1. 828 mls/hr IV .Q24H [facility] Rx#:[id number] fentaNYL (PF). 1,000 mcg 287.195 100 89.643 In Sodium Chloride 0.9% 80 ml @ 0.5 MCG/KG/HR 3. 515 mls/hr IV .Q24H [facility] Rx#:[id number] propofoL 1,000 mg In 200 90.64 66 Empty Bag 1 bag @ Titrate IV .Q0M [facility] Rx#: [id number] Output: Urine 1445 1150 45 Estimated Blood Loss 2 Other: Voiding Method Indwelling Catheter Indwelling Catheter # Bowel Movements 1 ABP, PAP, CO, CI - Last Documented Arterial Blood Pressure 148/75 - Exam GENERAL EXAM: Intubated, sedated, paralyzed 65-year-old female patient, maintaining O2 saturations in the 90s on 50% FiO2 and a PEEP of 15, comfortable in no apparent distress. HEAD: Normocephalic. EYES: Sluggish reaction of pupils, equal size. NOSE: Clear with pink turbinates. THROAT: Tracheostomy tube secured in place No erythema or exudates. NECK: No masses, no JVD. CHEST: No chest wall deformity. LUNGS: Equal air entry with coarse crackles in the bilateral bases. CVS: S1 and S2 normal with no audible murmur, regular rhythm. ABDOMEN: PEG tube exit site clean and dry. No hepatosplenomegaly, normal bowel sounds, no guarding or rigidity. SPINE: No scoliosis or deformity SKIN: No rashes CENTRAL NERVOUS SYSTEM: Sedated, paralyzed, tone is normal in all 4 extremities. EXTREMITIES: There is trace peripheral edema. No clubbing, no cyanosis. Peripheral pulses are intact.l - Labs CBC & Chem 7: 04/06/21 04:42 04/06/21 04:42 Labs: Abnormal Lab Results - Last 24 Hours (Table) 04/05/21 04/05/21 04/05/21 Range/Units 03:55 11:40 17:36 RBC (3.80-5.40) m/uL Hgb (11.4-16.0) gm/dL Hct (34.0-46.0) % Plt Count (150-450) k/uL Neutrophils # (1.3-7.7) k/uL D-Dimer (<0.60) mg/L FEU ABG pH (7.35-7.45) ABG HCO3 (21-25) mmol/L ABG Total CO2 (19-24) mmol/L ABG O2 Saturation (94-97) % Sodium (137-145) mmol/L Carbon Dioxide (22-30) mmol/L Creatinine (0.52-1.04) mg/dL POC Glucose (mg/dL) 185 H 167 H (75-99) mg/dL Calcium (8.4-10.2) mg/dL AST (14-36) U/L ALT (4-34) U/L Alkaline Phosphatase (38-126) U/L Lactate Dehydrogenase (313-618) U/L C-Reactive Protein (<1.0) mg/dL Total Protein (6.3-8.2) g/dL Albumin (3.5-5.0) g/dL Procalcitonin 4.31 H (0.02-0.09) ng/mL 04/05/21 04/06/21 04/06/21 Range/Units 23:39 04:42 04:42 RBC 3.15 L (3.80-5.40) m/uL Hgb 9.4 L (11.4-16.0) gm/dL Hct 29.0 L (34.0-46.0) % Plt Count 527 H (150-450) k/uL Neutrophils # 8.4 H (1.3-7.7) k/uL D-Dimer (<0.60) mg/L FEU ABG pH (7.35-7.45) ABG HCO3 (21-25) mmol/L ABG Total CO2 (19-24) mmol/L ABG O2 Saturation (94-97) % Sodium 135 L (137-145) mmol/L Carbon Dioxide 31 H (22-30) mmol/L Creatinine 0.37 L (0.52-1.04) mg/dL POC Glucose (mg/dL) 143 H (75-99) mg/dL Calcium 7.9 L (8.4-10.2) mg/dL AST 74 H (14-36) U/L ALT 84 H (4-34) U/L Alkaline Phosphatase 167 H (38-126) U/L Lactate Dehydrogenase 950 H (313-618) U/L C-Reactive Protein 27.0 H (<1.0) mg/dL Total Protein 4.5 L (6.3-8.2) g/dL Albumin 1.9 L (3.5-5.0) g/dL Procalcitonin (0.02-0.09) ng/mL 04/06/21 04/06/21 04/06/21 Range/Units 04:42 05:39 06:10 RBC (3.80-5.40) m/uL Hgb (11.4-16.0) gm/dL Hct (34.0-46.0) % Plt Count (150-450) k/uL Neutrophils # (1.3-7.7) k/uL D-Dimer 1.80 H (<0.60) mg/L FEU ABG pH 7.50 H (7.35-7.45) ABG HCO3 35 H (21-25) mmol/L ABG Total CO2 37 H (19-24) mmol/L ABG O2 Saturation 97.6 H (94-97) % Sodium (137-145) mmol/L Carbon Dioxide (22-30) mmol/L Creatinine (0.52-1.04) mg/dL POC Glucose (mg/dL) 106 H (75-99) mg/dL Calcium (8.4-10.2) mg/dL AST (14-36) U/L ALT (4-34) U/L Alkaline Phosphatase (38-126) U/L Lactate Dehydrogenase (313-618) U/L C-Reactive Protein (<1.0) mg/dL Total Protein (6.3-8.2) g/dL Albumin (3.5-5.0) g/dL Procalcitonin (0.02-0.09) ng/mL Microbiology - Last 24 Hours (Table) 04/05/21 20:42 Sputum Culture - Preliminary Sputum 04/05/21 14:30 Urine Culture - Preliminary Urine,Catheterized Assessment and Plan Assessment: 1 Acute hypoxemic respiratory failure secondary to coronavirus associated pneumonia, status post intubation with mechanical ventilation on 03/25/2021. CT angiogram was negative for pulmonary embolism. Tracheostomy tube and PEG tube placed on 04/05/2021. Remains on Unasyn for now. Follow-up cultures pending. 2 Elevated inflammatory marker secondary to coronavirus infection. 3 Type 2 diabetes mellitus. 4 Hypothyroidism. 5 Hyperlipidemia. 6 Pneumomediastinum with subcutaneous emphysema, mainly resolved. 7 MSSA positive sputum Plan: The patient was seen and evaluated Chest x-ray, ABGs and labs reviewed Decrease FiO2 to 50% Attempt to wean off Nimbex Tracheostomy and PEG tube placed yesterday Blood, urine and sputum cultures pending Remains on Unasyn for now Remains on Decadron, Lovenox, vitamin supplements We will continue to follow and make further recommendations based on her clinical status Critical care time 38 minutes I, the cosigning physician, performed a history & physical examination of the patient. Lungs sounds with coarse crackles in the posterior bases. Maintaining O2 saturations in the 90s on 50% FiO2 and a PEEP of 15 via the mechanical ventilator. I discussed the assessment and plan of care with my nurse practitioner, Joanie Bryson. I attest to the above note as dictated by her.
[2021-04-06 11:37] LABS: Glucose,Whole Blood 65 mg/dL (75-99)
[2021-04-06] MEDS ORDERED: DEXTROSE 50% SYRINGE 50 ML IVP ONE (11:55)
[2021-04-06 17:20] LABS: Glucose,Whole Blood 115 mg/dL (75-99)
[2021-04-06] MEDS: ATORVASTATIN 40 MG TAB PO SCH (20:01)
[2021-04-06] MEDS: lisinopriL 10 MG TAB PO SCH (20:01)
--- NOTE | 2021-04-06 23:01 | P.PN ---
Subjective This is 65-year-old female with past medical history of diabetes mellitus, hyperlipidemia, hypertension, osteoarthritis, no smoking history presented to the ER with worsening dyspnea 10 days Patient found to have bilateral covert pneumonia with secondary hypoxia severe enough to need intubation and mechanical ventilation. With superimposed fatuma terial infection of the lung with sputum culture growing staph and patient is placed on IV vancomycin. Patient has increased inflammatory markers LDH 879, CRP 1-5.6. WBC elevated at 13 K, liver enzymes mildly elevated. Chest x-ray showing bilateral pulmonary infiltrate. Broadcalcitonin elevated 1.5. She remains on Lovenox 40 mg twice a day as Doppler of the lower extremity and CTA of the chest are negative for clots. Also she is Protonix, dexamethasone, vitamin C, D and zinc. Metformin and Amaryl are helped sugar controlled on sliding scale 04/06/2021 Patient remains in the ICU sedated and intubated with pulmonary/critical care team following her closely. She still needs high PEEP valvule of 15. And she still tachypneic but no had a fever of 100.5 yesterday. WBC 10.0. Mild increased liver enzymes which is the same. Chest x-ray showing multifocal pneumonia. Sputum culture growing staph which is basically MSSA. And patient currently is covered with IV Unasyn by pulmonary team. Also she is on dexamethasone, vitamin C, vitamin D, zinc and Lovenox 40 mg twice a day and Protonix Objective - Vital Signs Vital signs: Vital Signs Temp 97.4 F L 04/06/21 04:00 Pulse 83 04/06/21 07:00 Resp 26 H 04/06/21 07:00 BP 104/65 04/06/21 02:00 Pulse Ox 96 04/06/21 07:00 Intake & Output 04/05/21 04/06/21 04/06/21 18:59 06:59 18:59 Intake Total 623.622 696.951 187.328 Output Total 1447 1150 45 Balance -823.378 -453.049 142.328 Weight 85.5 kg 86 kg Intake: IV 92 276 23 Sodium Chloride 0.9% 1, 80 240 20 000 ml @ 20 mls/hr IV . Q24H [facility] Rx#:[id number] pressure bag 12 36 3 Intake, IV Titration 531.622 420.951 164.328 Amount Cisatracurium 200 mg In 200 6.538 Sodium Chloride 0.9% 180 ml @ 1 MCG/KG/MIN 4.218 mls/hr IV .Q24H [facility] Rx#: [id number] Norepinephrine 32 mg In 44.427 30.311 2.147 Sodium Chloride 0.9% 218 ml @ 0.05 MCG/KG/MIN 1. 828 mls/hr IV .Q24H [facility] Rx#:[id number] fentaNYL (PF). 1,000 mcg 287.195 100 89.643 In Sodium Chloride 0.9% 80 ml @ 0.5 MCG/KG/HR 3. 515 mls/hr IV .Q24H [facility] Rx#:[id number] propofoL 1,000 mg In 200 90.64 66 Empty Bag 1 bag @ Titrate IV .Q0M [facility] Rx#: [id number] Output: Urine 1445 1150 45 Estimated Blood Loss 2 Other: Voiding Method Indwelling Catheter Indwelling Catheter # Bowel Movements 1 ABP, PAP, CO, CI - Last Documented Arterial Blood Pressure 148/75 - Exam -GENERAL: The patient is intubated and sedated HEENT: Pupils are round and equally reacting to light. EOMI. No scleral icterus. No conjunctival pallor. Normocephalic, atraumatic. No pharyngeal erythema. No thyromegaly. CARDIOVASCULAR: S1 and S2 present. No murmurs, rubs, or gallops. -PULMONARY: Chest is clear to auscultation, no wheezing. b/l crepitation ABDOMEN: Soft, nontender, nondistended, normoactive bowel sounds. No palpable organomegaly. MUSCULOSKELETAL: No joint swelling or deformity. EXTREMITIES: No cyanosis, clubbing, or pedal edema. NEUROLOGICAL: Gross neurological examination did not reveal any focal deficits. SKIN: No rashes. no petechiae. - Labs CBC & Chem 7: 04/06/21 04:42 04/06/21 04:42 Labs: Abnormal Lab Results - Last 24 Hours (Table) 04/05/21 04/05/21 04/05/21 Range/Units 03:55 17:36 23:39 RBC (3.80-5.40) m/uL Hgb (11.4-16.0) gm/dL Hct (34.0-46.0) % Plt Count (150-450) k/uL Neutrophils # (1.3-7.7) k/uL D-Dimer (<0.60) mg/L FEU ABG pH (7.35-7.45) ABG HCO3 (21-25) mmol/L ABG Total CO2 (19-24) mmol/L ABG O2 Saturation (94-97) % Sodium (137-145) mmol/L Carbon Dioxide (22-30) mmol/L Creatinine (0.52-1.04) mg/dL POC Glucose (mg/dL) 167 H 143 H (75-99) mg/dL Calcium (8.4-10.2) mg/dL AST (14-36) U/L ALT (4-34) U/L Alkaline Phosphatase (38-126) U/L Lactate Dehydrogenase (313-618) U/L C-Reactive Protein (<1.0) mg/dL Total Protein (6.3-8.2) g/dL Albumin (3.5-5.0) g/dL Procalcitonin 4.31 H (0.02-0.09) ng/mL 04/06/21 04/06/21 04/06/21 Range/Units 04:42 04:42 04:42 RBC 3.15 L (3.80-5.40) m/uL Hgb 9.4 L (11.4-16.0) gm/dL Hct 29.0 L (34.0-46.0) % Plt Count 527 H (150-450) k/uL Neutrophils # 8.4 H (1.3-7.7) k/uL D-Dimer 1.80 H (<0.60) mg/L FEU ABG pH (7.35-7.45) ABG HCO3 (21-25) mmol/L ABG Total CO2 (19-24) mmol/L ABG O2 Saturation (94-97) % Sodium 135 L (137-145) mmol/L Carbon Dioxide 31 H (22-30) mmol/L Creatinine 0.37 L (0.52-1.04) mg/dL POC Glucose (mg/dL) (75-99) mg/dL Calcium 7.9 L (8.4-10.2) mg/dL AST 74 H (14-36) U/L ALT 84 H (4-34) U/L Alkaline Phosphatase 167 H (38-126) U/L Lactate Dehydrogenase 950 H (313-618) U/L C-Reactive Protein 27.0 H (<1.0) mg/dL Total Protein 4.5 L (6.3-8.2) g/dL Albumin 1.9 L (3.5-5.0) g/dL Procalcitonin (0.02-0.09) ng/mL 04/06/21 04/06/21 04/06/21 Range/Units 05:39 06:10 11:35 RBC (3.80-5.40) m/uL Hgb (11.4-16.0) gm/dL Hct (34.0-46.0) % Plt Count (150-450) k/uL Neutrophils # (1.3-7.7) k/uL D-Dimer (<0.60) mg/L FEU ABG pH 7.50 H (7.35-7.45) ABG HCO3 35 H (21-25) mmol/L ABG Total CO2 37 H (19-24) mmol/L ABG O2 Saturation 97.6 H (94-97) % Sodium (137-145) mmol/L Carbon Dioxide (22-30) mmol/L Creatinine (0.52-1.04) mg/dL POC Glucose (mg/dL) 106 H 65 L (75-99) mg/dL Calcium (8.4-10.2) mg/dL AST (14-36) U/L ALT (4-34) U/L Alkaline Phosphatase (38-126) U/L Lactate Dehydrogenase (313-618) U/L C-Reactive Protein (<1.0) mg/dL Total Protein (6.3-8.2) g/dL Albumin (3.5-5.0) g/dL Procalcitonin (0.02-0.09) ng/mL Microbiology - Last 24 Hours (Table) 04/05/21 20:42 Gram Stain - Preliminary Sputum Sputum Culture - Preliminary 04/05/21 14:30 Urine Culture - Preliminary Urine,Catheterized Assessment and Plan Assessment: Bilateral Covid pneumonia with bacterial superinfection secondary to staff Acute hypoxic respiratory failure Increased inflammatory markers Possible pulmonary infection with staph MSSA and sputum culture Diabetes mellitus, type II Hypothyroidism Hyperlipidemia Plan: This is a pleasant 65 years old female who presents with Bilateral Covid pneum onia and hypoxia Continue with vitamin C, vitamin D, and zinc. Continue with dexamethasone Pulmonary team consult Continue with intubation and mechanical ventilation Continue with IV antibiotics as per pulmonary team. Currently she is on IV Unasyn Continue with insulin sliding scale and monitor glucose Labs and medication were reviewed.. Continue same treatment. Continue with symptomatic treatment. Resume home medication. Monitor lytes and vitals. DVT and GI prophylaxis. Further recommendations as per clinical course of the patient DVT prophylaxis: Subcutaneous Lovenox GI Prophylaxis: Ppi Prognosis is guarded
[2021-04-06 23:14] LABS: Glucose,Whole Blood 79 mg/dL (75-99)
[2021-04-07] MEDS: CISATRACURIUM 200 MG in SODIUM CHLORIDE 0.9% 180 ML IV SCH (00:42)
[2021-04-07] MEDS: INSULIN ASPART (NovoLOG) 100 UNIT/ML VIAL SQ SCH ×5 (02:57→23:25)
[2021-04-07 03:27] LABS: Basophils % (A) 0 %; Eosinophils # (A) 0.2 k/uL (0-0.7); Eosinophils % (A) 2 %; HCT 30.2 % (34.0-46.0); HGB 9.7 gm/dL (11.4-16.0); Lymphocytes # (A) 1.1 k/uL (1.0-4.8); Lymphocytes % (A) 13 %; MCH 30.1 pg (25.0-35.0); MCHC 32.2 g/dL (31.0-37.0); MCV 93.4 fL (80.0-100.0); Mean Platelet Volume 7.9; Monocytes # (A) 0.3 k/uL (0-1.0); Monocytes % (A) 3 %; Neutrophils # (A) 6.6 k/uL (1.3-7.7); Neutrophils % (A) 79 %; Platelet Count 508 k/uL (150-450); RBC 3.24 m/uL (3.80-5.40); RDW 15.2 % (11.5-15.5); WBC 8.3 k/uL (3.8-10.6)
[2021-04-07 03:41] LABS: ALT 72 U/L (4-34); AST 47 U/L (14-36); African American GFR (CKD) >90 (>60 ml/min/1.73 sqM); Alkaline Phosphatase 158 U/L (38-126); Anion Gap 2 mmol/L; Blood Urea Nitrogen 13 mg/dL (7-17); Calcium 8.1 mg/dL (8.4-10.2); Carbon Dioxide 33 mmol/L (22-30); Chloride 99 mmol/L (98-107); Glucose 110 mg/dL (74-99); LDH 716 U/L (313-618); Non-African American GFR(CKD) >90 (>60 ml/min/1.73 sqM); Potassium 3.8 mmol/L (3.5-5.1); Sodium 134 mmol/L (137-145); Total Bilirubin 0.2 mg/dL (0.2-1.3); Total Protein 4.8 g/dL (6.3-8.2)
[2021-04-07 03:51] LABS: C Reactive Protein 20.6 mg/dL (<1.0)
[2021-04-07] MEDS: fentaNYL (PF). 1,000 MCG in SODIUM CHLORIDE 0.9% 80 ML IV SCH ×5 (03:55→21:23)
[2021-04-07 05:26] LABS: Glucose,Whole Blood 109 mg/dL (75-99)
[2021-04-07] MEDS: AMPICILLIN-SULBACTAM 1.5 GM in SODIUM CHLORIDE 0.9% 50 ML IVPB SCH ×4 (05:27→23:23)
[2021-04-07] MEDS: LEVOTHYROXINE 75 MCG TAB PO SCH (05:59)
[2021-04-07 06:23] LABS: ABG Base Excess 11.4 mmol/L; ABG HCO3 34 mmol/L (21-25); ABG Oxygen Saturation 90.5 % (94-97); ABG PCO2 37 mmHg (35-45); ABG TCO2 35 mmol/L (19-24); Allen Test Performed? Yes
[2021-04-07 06:24] LABS: ABG PH 7.57 (7.35-7.45)
[2021-04-07 06:25] LABS: ABG PO2 53 mmHg (83-108)
--- NOTE | 2021-04-07 06:39 | XR ---
EXAMINATION TYPE: XR chest 1V portable DATE OF EXAM: 04/07/2021 COMPARISON: 04/06/2021 HISTORY: Covid TECHNIQUE: Single frontal view of the chest is obtained. FINDINGS: There is a left-sided PICC line and a tracheostomy tube unchanged. There is no change in the scattered small partially consolidative opacities in the mid lower lung zon es. There is no pneumothorax or large pleural effusion. The osseous structures are intact. IMPRESSION: Acute cardiopulmonary disease with no interval change.
[2021-04-07] MEDS ORDERED: Potassium Replacement Protocol 1 EACH MISC MISCELLANE PRN ×2 (07:48→10:36)
[2021-04-07] MEDS ORDERED: POTASSIUM CHLORIDE 10 MEQ in WATER FOR INJECTION 1 100ML.BAG IVPB SCH (08:00)
[2021-04-07] MEDS: ALBUTEROL HFA INHALER INHALATION SCH ×4 (08:28→18:50)
[2021-04-07 08:36] LABS: Glucose,Whole Blood 125 mg/dL (75-99)
[2021-04-07] MEDS ORDERED: FUROSEMIDE 10 MG/ML 4 ML VIAL IV STA (08:44)
[2021-04-07] MEDS ORDERED: propofoL 100 ML IV ONE ×3 (08:51→16:41)
[2021-04-07] MEDS: NOREPINEPHRINE 32 MG in SODIUM CHLORIDE 0.9% 218 ML IV SCH ×2 (08:59→09:02)
[2021-04-07] MEDS: INSULIN DETEMIR (LEVEMIR) 100 UNIT/ML SYR SQ SCH (09:00)
[2021-04-07] MEDS: SODIUM CHLORIDE 0.9% 1,000 ML IV SCH (09:00)
[2021-04-07] MEDS: ENOXAPARIN 40 MG/0.4 ML SYRINGE SQ SCH (09:01)
[2021-04-07] MEDS: DEXAMETHASONE SOD PHOSPHATE 10 MG/ML 1 ML VIAL IVP SCH (09:01)
[2021-04-07] MEDS: PANTOPRAZOLE 40 MG/10 ML VIAL IVP SCH (09:01)
[2021-04-07] MEDS: ASCORBIC ACID 500 MG TAB PO SCH (09:02)
[2021-04-07] MEDS: CHLORHEXIDINE GLUCONATE 15 ML CUP MUCOUS MEM SCH ×2 (09:02→20:20)
[2021-04-07] MEDS: ZINC SULFATE 220 MG CAP PO SCH (09:02)
[2021-04-07] MEDS: ARTIFICIAL TEARS-HYPROMELLOSE DROPS 15 ML BTL BOTH EYES SCH ×4 (09:02→22:14)
[2021-04-07] MEDS: CHOLECALCIFEROL 25 MCG (1000 IU) TABLET PO SCH (09:02)
[2021-04-07] MEDS ORDERED: CLEVIDIPINE BUTYRATE 25 MG/50 ML VIAL IV ONE (10:47)
[2021-04-07] MEDS ORDERED: POTASSIUM CHLORIDE ER 20 MEQ TAB.ER PO SCH (11:00)
[2021-04-07] MEDS ORDERED: POTASSIUM BICARBONATE/CIT AC 20 MEQ TABLET.EFF NG-TUBE SCH (11:00)
--- NOTE | 2021-04-07 11:34 | P.PN ---
Subjective Progress Note Date: 04/07/21 On 04/07/2021 patient seen in follow-up in the intensive care unit. Patient was transferred to the intensive care unit on 03/25/2021 and was intubated on the same date. She received tracheostomy tube and PEG tube on 04/05/2021, today she remains sedated, paralyzed and on assist-control mode of ventilation with a rate of 26, tidal volume of 375, FiO2 of 50% and PEEP of 15. This morning's blood gas shows pO2 of 53, pCO2 of 37, and pH of 7.57 this was done on FiO2 of 40%, and subsequently FiO2 has been increased to 50%. Her rate will be dropped down to 20 breaths per minute. Her peak pressure is 30, plateau pressure is 32. Patient is currently on 0.9 normal saline to 20 ML per hour, Diprivan is a 60 mics per kilo per minute, Nimbex is at 3 mics per kilo per minute, fentanyl is at 2.5 mics per kilo per minute, and she is on tube feedings with vital AF 19 with a goal of 19 and standard water flushes. She is hemodynamically stable, not requiring any vasopressor support, she is in sinus mechanism with a rate of 73 BPM. She does have a small leak around her tracheostomy, and she is losing about 20 mL of volume but nonetheless she is non-hypercapnic and this is not affecting her ventilation. Her chest x-ray today shows scattered small partially consolidative opacities in the mid lower lung zones. No pneumothorax or large pleural effusion. The respiratory has been reviewed showing white blood cell count of 8.3, hemoglobin of 9.7, d-dimer is 1.46, sodium is 134, potassium is 3.8, chloride is 99, CO2 33, BUN of 13 creatinine 0.38. Her liver enzymes continued to improve on today's labs, AST is 47, ALT is 72, and alkaline phosphatase is 158, LDH is improving and is down to 716, CRP is also trending down and is down to 20.6. Her last pro-calcitonin level from 04/05/2021 Was s till elevated at 4.31. Her sputum from 03/28/2021 showed MSSA, repeat sputum was sent on 04/05/2021 and showing rare PMNs, and few gram-positive cocci in clusters. She remains on Unasyn for antibiotic coverage. She also remains on Decadron 6 mg daily, she is on prophylactic Lovenox. Her d-dimer today is 1.46, and is improving. She's had no acute events overnight. Tolerating her tube feedings. She has had no fever or chills, urine output is adequate in the order of 35 ML per hour. Objective - Vital Signs Vital signs: Vital Signs Temp 97.6 F 04/07/21 00:18 Pulse 96 04/07/21 07:00 Resp 26 H 04/07/21 07:00 BP 131/73 04/06/21 21:30 Pulse Ox 97 04/07/21 08:00 Intake & Output 04/06/21 04/07/21 04/07/21 18:59 06:59 18:59 Intake Total 248.874 7987.184 215.394 Output Total 810 655 35 Balance -37.534 683.184 180.394 Weight 89.3 kg Intake: IV 476 276 23 Ampicillin-Sulbactam 1.5 150 gm In Sodium Chloride 0.9 % 50 ml @ 100 mls/hr IVPB Q6HR [facility] Rx#:[id number] Potassium Chloride 20 meq 150 In Water For Injection 1 100ml.bag @ 50 mls/hr IVPB ONCE [facility] Rx#: [id number] Sodium Chloride 0.9% 1, 140 240 20 000 ml @ 20 mls/hr IV . Q24H [facility] Rx#:[id number] pressure bag 36 36 3 Intake, IV Titration 296.466 714.184 166.394 Amount Cisatracurium 200 mg In 6.538 187.759 73.822 Sodium Chloride 0.9% 180 ml @ 1 MCG/KG/MIN 4.218 mls/hr IV .Q24H [facility] Rx#: [id number] Norepinephrine 32 mg In 2.147 19.307 Sodium Chloride 0.9% 218 ml @ 0.05 MCG/KG/MIN 1. 828 mls/hr IV .Q24H [facility] Rx#:[id number] fentaNYL (PF). 1,000 mcg 187.781 239.633 92.572 In Sodium Chloride 0.9% 80 ml @ 0.5 MCG/KG/HR 3. 515 mls/hr IV .Q24H [facility] Rx#:[id number] propofoL 1,000 mg In 100 267.485 Empty Bag 1 bag @ Titrate IV .Q0M [facility] Rx#: [id number] Tube Feeding 258 26 Other 90 Output: Urine 810 655 35 Other: Voiding Method Indwelling Catheter Indwelling Catheter Indwelling Catheter ABP, PAP, CO, CI - Last Documented Arterial Blood Pressure 138/71 - Exam GENERAL EXAM: Sedated and paralyzed, very pleasant 65 yo white female on assist-control mode of ventilation with a rate of 26, tidal Lyme is 375 FiO2 50% and PEEP of 15 HEAD: Normocephalic/atraumatic. EYES: Normal reaction of pupils, equal size. Conjunctiva pink, sclera white. NOSE: Clear with pink turbinates. THROAT: No erythema or exudates. NECK: No masses, no JVD, no thyroid enlargement, no adenopathy. CHEST: No chest wall deformity. Symmetrical expansion. LUNGS: Equal air entry with basilar rales CVS: Regular rate and rhythm, normal S1 and S2, no gallops, no murmurs, no rubs ABDOMEN: Soft, nontender. No hepatosplenomegaly, normal bowel sounds, no guard ing or rigidity. EXTREMITIES: No clubbing, no edema, no cyanosis, 2+ pulses and upper and lower extremities. MUSCULOSKELETAL: Muscle strength and tone normal. SPINE: No scoliosis or deformity SKIN: No rashes CENTRAL NERVOUS SYSTEM: Sedated and paralyzed No focal deficits, tone is normal in all 4 extremities. - Labs CBC & Chem 7: 04/07/21 03:15 04/07/21 03:15 Labs: Abnormal Lab Results - Last 24 Hours (Table) 04/06/21 04/06/21 04/07/21 Range/Units 11:35 17:18 03:15 RBC 3.24 L (3.80-5.40) m/uL Hgb 9.7 L (11.4-16.0) gm/dL Hct 30.2 L (34.0-46.0) % Plt Count 508 H (150-450) k/uL D-Dimer (<0.60) mg/L FEU ABG pH (7.35-7.45) ABG pO2 (83-108) mmHg ABG HCO3 (21-25) mmol/L ABG Total CO2 (19-24) mmol/L ABG O2 Saturation (94-97) % Sodium (137-145) mmol/L Carbon Dioxide (22-30) mmol/L Creatinine (0.52-1.04) mg/dL Glucose (74-99) mg/dL POC Glucose (mg/dL) 65 L 115 H (75-99) mg/dL Calcium (8.4-10.2) mg/dL AST (14-36) U/L ALT (4-34) U/L Alkaline Phosphatase (38-126) U/L Lactate Dehydrogenase (313-618) U/L C-Reactive Protein (<1.0) mg/dL Total Protein (6.3-8.2) g/dL Albumin (3.5-5.0) g/dL 04/07/21 04/07/21 04/07/21 Range/Units 03:15 03:15 05:23 RBC (3.80-5.40) m/uL Hgb (11.4-16.0) gm/dL Hct (34.0-46.0) % Plt Count (150-450) k/uL D-Dimer 1.46 H (<0.60) mg/L FEU ABG pH (7.35-7.45) ABG pO2 (83-108) mmHg ABG HCO3 (21-25) mmol/L ABG Total CO2 (19-24) mmol/L ABG O2 Saturation (94-97) % Sodium 134 L (137-145) mmol/L Carbon Dioxide 33 H (22-30) mmol/L Creatinine 0.38 L (0.52-1.04) mg/dL Glucose 110 H (74-99) mg/dL POC Glucose (mg/dL) 109 H (75-99) mg/dL Calcium 8.1 L (8.4-10.2) mg/dL AST 47 H (14-36) U/L ALT 72 H (4-34) U/L Alkaline Phosphatase 158 H (38-126) U/L Lactate Dehydrogenase 716 H (313-618) U/L C-Reactive Protein 20.6 H (<1.0) mg/dL Total Protein 4.8 L (6.3-8.2) g/dL Albumin 2.0 L (3.5-5.0) g/dL 04/07/21 04/07/21 Range/Units 06:20 08:35 RBC (3.80-5.40) m/uL Hgb (11.4-16.0) gm/dL Hct (34.0-46.0) % Plt Count (150-450) k/uL D-Dimer (<0.60) mg/L FEU ABG pH 7.57 H* (7.35-7.45) ABG pO2 53 L* (83-108) mmHg ABG HCO3 34 H (21-25) mmol/L ABG Total CO2 35 H (19-24) mmol/L ABG O2 Saturation 90.5 L (94-97) % Sodium (137-145) mmol/L Carbon Dioxide (22-30) mmol/L Creatinine (0.52-1.04) mg/dL Glucose (74-99) mg/dL POC Glucose (mg/dL) 125 H (75-99) mg/dL Calcium (8.4-10.2) mg/dL AST (14-36) U/L ALT (4-34) U/L Alkaline Phosphatase (38-126) U/L Lactate Dehydrogenase (313-618) U/L C-Reactive Protein (<1.0) mg/dL Total Protein (6.3-8.2) g/dL Albumin (3.5-5.0) g/dL Microbiology - Last 24 Hours (Table) 04/05/21 14:30 Urine Culture - Final Urine,Catheterized 04/05/21 20:42 Gram Stain - Preliminary Sputum Sputum Culture - Preliminary Assessment and Plan Plan: Assessment: #1. Acute bilateral COVID 19 related pneumonia. Intubated on 03/25/2021. Patient was outside the window for Remdesivir, due to progressive hypoxia. She was not vaccinated. She was started on Baricitinib on 03/22/2021. Transfer to the intensive care unit on 03/25/2021, and intubated on the same date. Patient received tracheostomy and PEG tube on 04/05/2021 #2. Acute hypoxic respiratory failure secondary to above, currently remains sedated and paralyzed, and she has made some improvement in terms of FiO2 requirement which is down to 50% and she started a PEEP of 15 #3. Elevated inflammatory markers including LDH, mildly elevated D dimers. Improving #4. 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 Hypothyroidism #6. Hyperlipidemia #7. Pneumomediastinum with subcutaneous emphysema, resolved #8. MSSA pneumonia, patient is covered with Unasyn Plan: The chest x-ray, blood gases and labs reviewed We will drop the rate down to 20 And continue with the other vent settings, currently on FiO2 of 50% PEEP of 15 Hemodynamically stable No acute events overnight We'll discontinue Nimbex We'll give the patient had dose of IV Lasix, as the patient is significantly in positive fluid balance Continue weaning FiO2 to keep O2 sats ration sat 90% and above Continue Decadron, continue Lovenox Continue multivitamins Continue Unasyn until we have finalized sputum culture However her last pro-calcitonin level was still elevated Continue nutritional support Follow-up labs CBC, CMP, chest x-ray and blood gas tomorrow tient and discussed their management with my nurse practitioner, Jessica Leigh. I reviewed the nurse practitioner's note and agree with the documented findings and plan of care. Lung sounds are positive for diffuse crackles throughout the lung merino. The findings and the impression was discussed with the patient. I attest to the documentation by the nurse practitioner. Time with Patient: Greater than 30
[2021-04-07 12:01] LABS: Glucose,Whole Blood 170 mg/dL (75-99)
--- NOTE | 2021-04-07 14:04 | P.PN ---
Subjective Progress Note Date: 04/06/21 CHIEF COMPLAINT: : Coronavirus vent dependent respiratory failure HISTORY OF PRESENT ILLNESS: The patient is a 65-year-old female diagnosed with coronavirus an acute hypoxia with respiratory failure also has severe calorie protein malnutrition. He status post tracheostomy and gastrostomy tube placement yesterday. No complications overnight. Patient's on full ventilatory management in the intensive care unit. ROS: No fevers or chills. No new chest pain. No new neurological event PHYSICAL EXAM: VITAL SIGNS: Reviewed CONSTITUTIONAL: Well developed and in no acute distress. EYES: Conjuctivae without sclera icterus. Extraocular movements grossly intact. HEAD, EARS, NOSE, THROAT: Moist buccal mucosa. Head is atraumatic, normocephalic. No nasal drainage. Tracheostomy intact. RESPIRATORY: On full mechanical ventilatory management CARDIOVASCULAR: Palpable 2+ radial pulses. ABDOMEN: Gastrostomy tube intact. MUSCULOSKELETAL: No gross deformity of the lower extremities noted. No cl ubbing. No cyanosis. SKIN: Good skin turgor. Well perfused. NEUROLOGIC: Cranial nerves II through XII grossly intact. No focal or lateralizing signs. PSYCH: Intubated and sedated CLINICAL LABS: Reviewed. WBC normal 10.2 Hemoglobin low at 9.4 ASSESSMENT: 1. Acute hypoxic respiratory failure and mechanical ventilation 2. Severe protein malnutrition status post gastrostomy tube placement. 3. COVID-19 pneumonia 4. Status post tracheostomy PLAN: 1. Vent management per intensive care unit 2. Tube feeds management per dietitian 3. Supportive management for coronavirus pneumonia Objective - Vital Signs Vital signs: Vital Signs Temp 97.4 F L 04/06/21 04:00 Pulse 83 04/06/21 07:00 Resp 26 H 04/06/21 07:00 BP 104/65 04/06/21 02:00 Pulse Ox 96 04/06/21 07:00 Intake & Output 04/05/21 04/06/21 04/06/21 18:59 06:59 18:59 Intake Total 623.622 696.951 187.328 Output Total 1447 1150 45 Balance -823.378 -453.049 142.328 Weight 85.5 kg 86 kg Intake: IV 92 276 23 Sodium Chloride 0.9% 1, 80 240 20 000 ml @ 20 mls/hr IV . Q24H [facility] Rx#:[id number] pressure bag 12 36 3 Intake, IV Titration 531.622 420.951 164.328 Amount Cisatracurium 200 mg In 200 6.538 Sodium Chloride 0.9% 180 ml @ 1 MCG/KG/MIN 4.218 mls/hr IV .Q24H [facility] Rx#: [id number] Norepinephrine 32 mg In 44.427 30.311 2.147 Sodium Chloride 0.9% 218 ml @ 0.05 MCG/KG/MIN 1. 828 mls/hr IV .Q24H [facility] Rx#:[id number] fentaNYL (PF). 1,000 mcg 287.195 100 89.643 In Sodium Chloride 0.9% 80 ml @ 0.5 MCG/KG/HR 3. 515 mls/hr IV .Q24H [facility] Rx#:[id number] propofoL 1,000 mg In 200 90.64 66 Empty Bag 1 bag @ Titrate IV .Q0M [facility] Rx#: [id number] Output: Urine 1445 1150 45 Estimated Blood Loss 2 Other: Voiding Method Indwelling Catheter Indwelling Catheter # Bowel Movements 1 ABP, PAP, CO, CI - Last Documented Arterial Blood Pressure 148/75 - Labs CBC & Chem 7: 04/07/21 03:15 04/07/21 03:15 Labs: Abnormal Lab Results - Last 24 Hours (Table) 04/05/21 04/05/21 04/05/21 Range/Units 03:55 11:40 17:36 RBC (3.80-5.40) m/uL Hgb (11.4-16.0) gm/dL Hct (34.0-46.0) % Plt Count (150-450) k/uL Neutrophils # (1.3-7.7) k/uL D-Dimer (<0.60) mg/L FEU ABG pH (7.35-7.45) ABG HCO3 (21-25) mmol/L ABG Total CO2 (19-24) mmol/L ABG O2 Saturation (94-97) % Sodium (137-145) mmol/L Carbon Dioxide (22-30) mmol/L Creatinine (0.52-1.04) mg/dL POC Glucose (mg/dL) 185 H 167 H (75-99) mg/dL Calcium (8.4-10.2) mg/dL AST (14-36) U/L ALT (4-34) U/L Alkaline Phosphatase (38-126) U/L Lactate Dehydrogenase (313-618) U/L C-Reactive Protein (<1.0) mg/dL Total Protein (6.3-8.2) g/dL Albumin (3.5-5.0) g/dL Procalcitonin 4.31 H (0.02-0.09) ng/mL 04/05/21 04/06/21 04/06/21 Range/Units 23:39 04:42 04:42 RBC 3.15 L (3.80-5.40) m/uL Hgb 9.4 L (11.4-16.0) gm/dL Hct 29.0 L (34.0-46.0) % Plt Count 527 H (150-450) k/uL Neutrophils # 8.4 H (1.3-7.7) k/uL D-Dimer (<0.60) mg/L FEU ABG pH (7.35-7.45) ABG HCO3 (21-25) mmol/L ABG Total CO2 (19-24) mmol/L ABG O2 Saturation (94-97) % Sodium 135 L (137-145) mmol/L Carbon Dioxide 31 H (22-30) mmol/L Creatinine 0.37 L (0.52-1.04) mg/dL POC Glucose (mg/dL) 143 H (75-99) mg/dL Calcium 7.9 L (8.4-10.2) mg/dL AST 74 H (14-36) U/L ALT 84 H (4-34) U/L Alkaline Phosphatase 167 H (38-126) U/L Lactate Dehydrogenase 950 H (313-618) U/L C-Reactive Protein 27.0 H (<1.0) mg/dL Total Protein 4.5 L (6.3-8.2) g/dL Albumin 1.9 L (3.5-5.0) g/dL Procalcitonin (0.02-0.09) ng/mL 04/06/21 04/06/21 04/06/21 Range/Units 04:42 05:39 06:10 RBC (3.80-5.40) m/uL Hgb (11.4-16.0) gm/dL Hct (34.0-46.0) % Plt Count (150-450) k/uL Neutrophils # (1.3-7.7) k/uL D-Dimer 1.80 H (<0.60) mg/L FEU ABG pH 7.50 H (7.35-7.45) ABG HCO3 35 H (21-25) mmol/L ABG Total CO2 37 H (19-24) mmol/L ABG O2 Saturation 97.6 H (94-97) % Sodium (137-145) mmol/L Carbon Dioxide (22-30) mmol/L Creatinine (0.52-1.04) mg/dL POC Glucose (mg/dL) 106 H (75-99) mg/dL Calcium (8.4-10.2) mg/dL AST (14-36) U/L ALT (4-34) U/L Alkaline Phosphatase (38-126) U/L Lactate Dehydrogenase (313-618) U/L C-Reactive Protein (<1.0) mg/dL Total Protein (6.3-8.2) g/dL Albumin (3.5-5.0) g/dL Procalcitonin (0.02-0.09) ng/mL 04/06/21 Range/Units 11:35 RBC (3.80-5.40) m/uL Hgb (11.4-16.0) gm/dL Hct (34.0-46.0) % Plt Count (150-450) k/uL Neutrophils # (1.3-7.7) k/uL D-Dimer (<0.60) mg/L FEU ABG pH (7.35-7.45) ABG HCO3 (21-25) mmol/L ABG Total CO2 (19-24) mmol/L ABG O2 Saturation (94-97) % Sodium (137-145) mmol/L Carbon Dioxide (22-30) mmol/L Creatinine (0.52-1.04) mg/dL POC Glucose (mg/dL) 65 L (75-99) mg/dL Calcium (8.4-10.2) mg/dL AST (14-36) U/L ALT (4-34) U/L Alkaline Phosphatase (38-126) U/L Lactate Dehydrogenase (313-618) U/L C-Reactive Protein (<1.0) mg/dL Total Protein (6.3-8.2) g/dL Albumin (3.5-5.0) g/dL Procalcitonin (0.02-0.09) ng/mL Microbiology - Last 24 Hours (Table) 04/05/21 20:42 Sputum Culture - Preliminary Sputum 04/05/21 14:30 Urine Culture - Preliminary Urine,Catheterized Assessment and Plan (1) Acute respiratory failure with hypoxia Current Visit: Yes Status: Acute Code(s): J96.01 - ACUTE RESPIRATORY FAILURE WITH HYPOXIA SNOMED Code(s): 69857510 (2) Pneumonia due to COVID-19 virus Current Visit: Yes Status: Acute Code(s): U07.1 - COVID-19; J12.82 - PNEUMON IA DUE TO CORONAVIRUS DISEASE 2018 SNOMED Code(s): 314277007532281473 (3) Tracheostomy in place Current Visit: Yes Status: Acute Code(s): Z93.0 - TRACHEOSTOMY STATUS SNOMED Code(s): 885509091 (4) Gastrostomy in place Current Visit: Yes Status: Acute Code(s): Z93.1 - GASTROSTOMY STATUS SNOMED Code(s): 502425374 (5) Severe protein-calorie malnutrition Current Visit: Yes Status: Acute Code(s): E43 - UNSPECIFIED SEVERE PROTEIN-C ALORIE MALNUTRITION SNOMED Code(s): 446079125 (6) Morbid obesity due to leptin deficiency Current Visit: Yes Status: Acute Code(s): E66.8 - OTHER OBESITY; E88.89 - OTHER SPECIFIED METABOLIC DISORDERS SNOMED Code(s): 982498872 (7) BMI 36.0-36.9,adult Current Visit: Yes Status: Acute Code(s): Z68.36 - BODY MASS INDEX [BMI] 36.0-36.9, ADULT SNOMED Code(s): 079553052
--- NOTE | 2021-04-07 16:10 | P.PN ---
Subjective Progress Note Date: 04/07/21 CHIEF COMPLAINT: : Coronavirus vent dependent respiratory failure HISTORY OF PRESENT ILLNESS: The patient is a 65-year-old female diagnosed with coronavirus an acute hypoxia with respiratory failure also has severe calorie protein malnutrition. He status post tracheostomy and gastrostomy tube placement. Patient is on full mechanical ventilatory support. ROS: No fevers or chills. No new chest pain. No new neurological event PHYSICAL EXAM: VITAL SIGNS: Reviewed CONSTITUTIONAL: Well developed and in no acute distress. EYES: Conjuctivae without sclera icterus. Extraocular movements grossly intact. HEAD, EARS, NOSE, THROAT: Moist buccal mucosa. Head is atraumatic, normocephalic. No nasal drainage. Tracheostomy intact. RESPIRATORY: On full mechanical ventilatory management CARDIOVASCULAR: Palpable 2+ radial pulses. ABDOMEN: Gastrostomy tube intact. MUSCULOSKELETAL: No clubbing. No cyanosis. SKIN: Good skin turgor. Well perfused. NEUROLOGIC: No focal or lateralizing signs. PSYCH: Intubated and sedated CLINICAL LABS: Reviewed. WBC normal 10.2, now 8.3 today. Hemoglobin low at 9.4, now 9.7 today ASSESSMENT: 1. Acute hypoxic respiratory failure and mechanical ventilation 2. Severe protein malnutrition status post gastrostomy tube placement. 3. COVID-19 pneumonia 4. Status post tracheostomy PLAN: 1. Vent management per intensive care unit 2. Tube feeds management per dietitian 3. Supportive management for coronavirus pneumonia Objective - Vital Signs Vital signs: Vital Signs Temp 98.9 F 04/07/21 12:00 Pulse 81 04/07/21 15:00 Resp 20 04/07/21 15:00 BP 136/87 04/07/21 15:00 Pulse Ox 97 04/07/21 15:27 Intake & Output 04/06/21 04/07/21 04/07/21 18:59 06:59 18:59 Intake Total 748.553 0643.184 701.035 Output Total 533 315 8938 Balance -37.534 683.184 -1318.965 Weight 89.3 kg Intake: IV 476 276 207 Ampicillin-Sulbactam 1.5 150 gm In Sodium Chloride 0.9 % 50 ml @ 100 mls/hr [facility] Rx#:[id number] Potassium Chloride 20 meq 150 In Water For Injection 1 100ml.bag @ 50 mls/hr IVPB ONCE [facility] Rx#: [id number] Sodium Chloride 0.9% 1, 140 240 180 000 ml @ 20 mls/hr IV . Q24H [facility] Rx#:[id number] pressure bag 36 36 27 Intake, IV Titration 296.466 714.184 256.035 Amount Cisatracurium 200 mg In 6.538 187.759 73.822 Sodium Chloride 0.9% 180 ml @ 1 MCG/KG/MIN 4.218 mls/hr IV .Q24H [facility] Rx#: [id number] Norepinephrine 32 mg In 2.147 19.307 Sodium Chloride 0.9% 218 ml @ 0.05 MCG/KG/MIN 1. 828 mls/hr IV .Q24H [facility] Rx#:[id number] fentaNYL (PF). 1,000 mcg 187.781 239.633 182.213 In Sodium Chloride 0.9% 80 ml @ 0.5 MCG/KG/HR 3. 515 mls/hr IV .Q24H [facility] Rx#:[id number] propofoL 1,000 mg In 100 267.485 Empty Bag 1 bag @ Titrate IV .Q0M [facility] Rx#: [id number] Tube Feeding 258 178 Other 90 60 Output: Urine 120 042 7524 Other: Voiding Method Indwelling Catheter Indwelling Catheter Indwelling Catheter ABP, PAP, CO, CI - Last Documented Arterial Blood Pressure 100/55 - Labs CBC & Chem 7: 04/07/21 03:15 04/07/21 03:15 Labs: Abnormal Lab Results - Last 24 Hours (Table) 04/06/21 04/07/21 04/07/21 Range/Units 17:18 03:15 03:15 RBC 3.24 L (3.80-5.40) m/uL Hgb 9.7 L (11.4-16.0) gm/dL Hct 30.2 L (34.0-46.0) % Plt Count 508 H (150-450) k/uL D-Dimer 1.46 H (<0.60) mg/L FEU ABG pH (7.35-7.45) ABG pO2 (83-108) mmHg ABG HCO3 (21-25) mmol/L ABG Total CO2 (19-24) mmol/L ABG O2 Saturation (94-97) % Sodium (137-145) mmol/L Carbon Dioxide (22-30) mmol/L Creatinine (0.52-1.04) mg/dL Glucose (74-99) mg/dL POC Glucose (mg/dL) 115 H (75-99) mg/dL Calcium (8.4-10.2) mg/dL AST (14-36) U/L ALT (4-34) U/L Alkaline Phosphatase (38-126) U/L Lactate Dehydrogenase (313-618) U/L C-Reactive Protein (<1.0) mg/dL Total Protein (6.3-8.2) g/dL Albumin (3.5-5.0) g/dL 04/07/21 04/07/21 04/07/21 Range/Units 03:15 05:23 06:20 RBC (3.80-5.40) m/uL Hgb (11.4-16.0) gm/dL Hct (34.0-46.0) % Plt Count (150-450) k/uL D-Dimer (<0.60) mg/L FEU ABG pH 7.57 H* (7.35-7.45) ABG pO2 53 L* (83-108) mmHg ABG HCO3 34 H (21-25) mmol/L ABG Total CO2 35 H (19-24) mmol/L ABG O2 Saturation 90.5 L (94-97) % Sodium 134 L (137-145) mmol/L Carbon Dioxide 33 H (22-30) mmol/L Creatinine 0.38 L (0.52-1.04) mg/dL Glucose 110 H (74-99) mg/dL POC Glucose (mg/dL) 109 H (75-99) mg/dL Calcium 8.1 L (8.4-10.2) mg/dL AST 47 H (14-36) U/L ALT 72 H (4-34) U/L Alkaline Phosphatase 158 H (38-126) U/L Lactate Dehydrogenase 716 H (313-618) U/L C-Reactive Protein 20.6 H (<1.0) mg/dL Total Protein 4.8 L (6.3-8.2) g/dL Albumin 2.0 L (3.5-5.0) g/dL 04/07/21 04/07/21 Range/Units 08:35 11:59 RBC (3.80-5.40) m/uL Hgb (11.4-16.0) gm/dL Hct (34.0-46.0) % Plt Count (150-450) k/uL D-Dimer (<0.60) mg/L FEU ABG pH (7.35-7.45) ABG pO2 (83-108) mmHg ABG HCO3 (21-25) mmol/L ABG Total CO2 (19-24) mmol/L ABG O2 Saturation (94-97) % Sodium (137-145) mmol/L Carbon Dioxide (22-30) mmol/L Creatinine (0.52-1.04) mg/dL Glucose (74-99) mg/dL POC Glucose (mg/dL) 125 H 170 H (75-99) mg/dL Calcium (8.4-10.2) mg/dL AST (14-36) U/L ALT (4-34) U/L Alkaline Phosphatase (38-126) U/L Lactate Dehydrogenase (313-618) U/L C-Reactive Protein (<1.0) mg/dL Total Protein (6.3-8.2) g/dL Albumin (3.5-5.0) g/dL Microbiology - Last 24 Hours (Table) 04/05/21 20:42 Gram Stain - Preliminary Sputum Sputum Culture - Preliminary Presumptive Staph aureus 04/05/21 14:30 Urine Culture - Final Urine,Catheterized Assessment and Plan (1) Acute respiratory failure with hypoxia Current Visit: Yes Status: Acute Code(s): J96.01 - ACUTE RESPIRATORY FAILURE WITH HYPOXIA SNOMED Code(s): 00833979 (2) Pneumonia due to COVID-19 virus Current Visit: Yes Status: Acute Code(s): U07.1 - COVID-19; J12.82 - PNEUMONIA DUE TO CORONAVIRUS DISEASE 2019 SNOMED Code(s): 075388474089409760 (3) Tracheostomy in place Current Visit: Yes Status: Acute Code(s): Z93.0 - TRACHEOSTOMY STATUS SNOMED Code(s): 425663084 (4) Gastrostomy in place Current Visit: Yes Status: Acute Code(s): Z93.1 - GASTROSTOMY STATUS SNOMED Code(s): 512199388 (5) Severe protein-calorie malnutrition Current Visit: Yes Status: Acute Code(s): E43 - UNSPECIFIED SEVERE PROTEIN- CALORIE MALNUTRITION SNOMED Code(s): 431975840 (6) Morbid obesity due to leptin deficiency Current Visit: Yes Status: Acute Code(s): E66.8 - OTHER OBESITY; E88.89 - OTHER SPECIFIED METABOLIC DISORDERS SNOMED Code(s): 588213763 (7) BMI 36.0-36.9,adult Current Visit: Yes Status: Acute Code(s): Z68.36 - BODY MASS INDEX [BMI] 36.0-36.9, ADULT SNOMED Code(s): 836396578
[2021-04-07 16:53] LABS: Glucose,Whole Blood 245 mg/dL (75-99)
[2021-04-07] MEDS: ATORVASTATIN 40 MG TAB PO SCH (20:20)
[2021-04-07] MEDS: lisinopriL 10 MG TAB PO SCH (21:48)
--- NOTE | 2021-04-07 22:48 | P.PN ---
Subjective This is 65-year-old female with past medical history of diabetes mellitus, hyperlipidemia, hypertension, osteoarthritis, no smoking history presented to the ER with worsening dyspnea 10 days Patient found to have bilateral covert pneumonia with secondary hypoxia severe enough to need intubation and mechanical ventilation. With superimposed fatuma terial infection of the lung with sputum culture growing staph and patient is placed on IV vancomycin. Patient has increased inflammatory markers LDH 879, CRP 1-5.6. WBC elevated at 13 K, liver enzymes mildly elevated. Chest x-ray showing bilateral pulmonary infiltrate. Broadcalcitonin elevated 1.5. She remains on Lovenox 40 mg twice a day as Doppler of the lower extremity and CTA of the chest are negative for clots. Also she is Protonix, dexamethasone, vitamin C, D and zinc. Metformin and Amaryl are helped sugar controlled on sliding scale 04/06/2021 Patient remains in the ICU sedated and intubated with pulmonary/critical care team following her closely. She still needs high PEEP valvule of 15. And she still tachypneic but no had a fever of 100.5 yesterday. WBC 10.0. Mild increased liver enzymes which is the same. Chest x-ray showing multifocal pneumonia. Sputum culture growing staph which is basically MSSA. And patient currently is covered with IV Unasyn by pulmonary team. Also she is on dexamethasone, vitamin C, vitamin D, zinc and Lovenox 40 mg twice a day and Protonix 04/07/2021 Patient presents with bilateral covert pneumonia and hypoxia requiring intubation and mechanical ventilation. Patient is monitored closely in the ICU by pulmonary/critical care team. She is currently with FiO2 of 50% and PEEP of 15. Nimbex was discontinued today. On admission also patient had a fever secondary to MSSA pneumonia with super bacterial infection and now was covered w ith Unasyn. However she has no leukocytosis and CBC showing WBC 8.3, hemoglobin 9.7 and platelet count 508. Other labs showing slight improvement with LDH down to 716 and CRP 20.6. Liver enzymes slightly trending down most likely secondary to her covert infection. Chest x-ray showing bilateral pneumonia. Currently she is on dexamethasone, multiple vitamins Objective - Vital Signs Vital signs: Vital Signs Temp 97.6 F 04/07/21 00:18 Pulse 96 04/07/21 07:00 Resp 26 H 12/19/21 07:00 BP 131/73 04/06/21 21:30 Pulse Ox 97 04/07/21 08:00 Intake & Output 04/06/21 04/07/21 04/07/21 18:59 06:59 18:59 Intake Total 450.692 2599.184 215.394 Output Total 810 655 35 Balance -37.534 683.184 180.394 Weight 89.3 kg Intake: IV 476 276 23 Ampicillin-Sulbactam 1.5 150 gm In Sodium Chloride 0.9 % 50 ml @ 100 mls/hr IVPB Q6HR [facility] Rx#:[id number] Potassium Chloride 20 meq 150 In Water For Injection 1 100ml.bag @ 50 mls/hr IVPB ONCE [facility] Rx#: [id number] Sodium Chloride 0.9% 1, 140 240 20 000 ml @ 20 mls/hr IV . Q24H [facility] Rx#:[id number] pressure bag 36 36 3 Intake, IV Titration 296.466 714.184 166.394 Amount Cisatracurium 200 mg In 6.538 187.759 73.822 Sodium Chloride 0.9% 180 ml @ 1 MCG/KG/MIN 4.218 mls/hr IV .Q24H [facility] Rx#: [id number] Norepinephrine 32 mg In 2.147 19.307 Sodium Chloride 0.9% 218 ml @ 0.05 MCG/KG/MIN 1. 828 mls/hr IV .Q24H [facility] Rx#:[id number] fentaNYL (PF). 1,000 mcg 187.781 239.633 92.572 In Sodium Chloride 0.9% 80 ml @ 0.5 MCG/KG/HR 3. 515 mls/hr IV .Q24H [facility] Rx#:[id number] propofoL 1,000 mg In 100 267.485 Empty Bag 1 bag @ Titrate IV .Q0M [facility] Rx#: [id number] Tube Feeding 258 26 Other 90 Output: Urine 810 655 35 Other: Voiding Method Indwelling Catheter Indwelling Catheter Indwelling Catheter ABP, PAP, CO, CI - Last Documented Arterial Blood Pressure 138/71 - Exam -GENERAL: The patient is intubated and sedated HEENT: Pupils are round and equally reacting to light. EOMI. No scleral icterus. No conjunctival pallor. Normocephalic, atraumatic. No pharyngeal erythema. No thyromegaly. CARDIOVASCULAR: S1 and S2 present. No murmurs, rubs, or gallops. -PULMONARY: Chest is clear to auscultation, no wheezing. b/l crepitation ABDOMEN: Soft, nontender, nondistended, normoactive bowel sounds. No palpable organomegaly. MUSCULOSKELETAL: No joint swelling or deformity. EXTREMITIES: No cyanosis, clubbing, or pedal edema. NEUROLOGICAL: Gross neurological examination did not reveal any focal deficits. SKIN: No rashes. no petechiae. - Labs CBC & Chem 7: 04/07/21 03:15 04/07/21 03:15 Labs: Abnormal Lab Results - Last 24 Hours (Table) 04/06/21 04/07/21 04/07/21 Range/Units 17:18 03:15 03:15 RBC 3.24 L (3.80-5.40) m/uL Hgb 9.7 L (11.4-16.0) gm/dL Hct 30.2 L (34.0-46.0) % Plt Count 508 H (150-450) k/uL D-Dimer 1.46 H (<0.60) mg/L FEU ABG pH (7.35-7.45) ABG pO2 (83-108) mmHg ABG HCO3 (21-25) mmol/L ABG Total CO2 (19-24) mmol/L ABG O2 Saturation (94-97) % Sodium (137-145) mmol/L Carbon Dioxide (22-30) mmol/L Creatinine (0.52-1.04) mg/dL Glucose (74-99) mg/dL POC Glucose (mg/dL) 115 H (75-99) mg/dL Calcium (8.4-10.2) mg/dL AST (14-36) U/L ALT (4-34) U/L Alkaline Phosphatase (38-126) U/L Lactate Dehydrogenase (313-618) U/L C-Reactive Protein (<1.0) mg/dL Total Protein (6.3-8.2) g/dL Albumin (3.5-5.0) g/dL 04/07/21 04/07/21 04/07/21 Range/Units 03:15 05:23 06:20 RBC (3.80-5.40) m/uL Hgb (11.4-16.0) gm/dL Hct (34.0-46.0) % Plt Count (150-450) k/uL D-Dimer (<0.60) mg/L FEU ABG pH 7.57 H* (7.35-7.45) ABG pO2 53 L* (83-108) mmHg ABG HCO3 34 H (21-25) mmol/L ABG Total CO2 35 H (19-24) mmol/L ABG O2 Saturation 90.5 L (94-97) % Sodium 134 L (137-145) mmol/L Carbon Dioxide 33 H (22-30) mmol/L Creatinine 0.38 L (0.52-1.04) mg/dL Glucose 110 H (74-99) mg/dL POC Glucose (mg/dL) 109 H (75-99) mg/dL Calcium 8.1 L (8.4-10.2) mg/dL AST 47 H (14-36) U/L ALT 72 H (4-34) U/L Alkaline Phosphatase 158 H (38-126) U/L Lactate Dehydrogenase 716 H (313-618) U/L C-Reactive Protein 20.6 H (<1.0) mg/dL Total Protein 4.8 L (6.3-8.2) g/dL Albumin 2.0 L (3.5-5.0) g/dL 04/07/21 Range/Units 08:35 RBC (3.80-5.40) m/uL Hgb (11.4-16.0) gm/dL Hct (34.0-46.0) % Plt Count (150-450) k/uL D-Dimer (<0.60) mg/L FEU ABG pH (7.35-7.45) ABG pO2 (83-108) mmHg ABG HCO3 (21-25) mmol/L ABG Total CO2 (19-24) mmol/L ABG O2 Saturation (94-97) % Sodium (137-145) mmol/L Carbon Dioxide (22-30) mmol/L Creatinine (0.52-1.04) mg/dL Glucose (74-99) mg/dL POC Glucose (mg/dL) 125 H (75-99) mg/dL Calcium (8.4-10.2) mg/dL AST (14-36) U/L ALT (4-34) U/L Alkaline Phosphatase (38-126) U/L Lactate Dehydrogenase (313-618) U/L C-Reactive Protein (<1.0) mg/dL Total Protein (6.3-8.2) g/dL Albumin (3.5-5.0) g/dL Microbiology - Last 24 Hours (Table) 04/05/21 14:30 Urine Culture - Final Urine,Catheterized 04/05/21 20:42 Gram Stain - Preliminary Sputum Sputum Culture - Preliminary Assessment and Plan Assessment: Bilateral Covid pneumonia with bacterial superinfection secondary to staff Acute hypoxic respiratory failure Increased inflammatory markers Possible pulmonary infection with staph MSSA and sputum culture Diabetes mellitus, type II Hypothyroidism Hyperlipidemia Plan: This is a pleasant 65 years old female who presents with Bilateral Covid pneumonia and hypoxia Continue with vitamin C, vitamin D, and zinc. Continue with dexamethasone Pulmonary team consult Continue with intubation and mechanical ventilation Continue with IV antibiotics as per pulmonary team. Currently she is on IV Unasyn Continue with insulin sliding scale and monitor glucose Labs and medication were reviewed.. Continue same treatment. Continue with symptomatic treatment. Resume home medication. Monitor lytes and vitals. DVT and GI prophylaxis. Further recommendations as per clinical course of the patient DVT prophylaxis: Subcutaneous Lovenox GI Prophylaxis: Ppi Prognosis is guarded
[2021-04-07 23:20] LABS: Glucose,Whole Blood 203 mg/dL (75-99)
[2021-04-08] MEDS: fentaNYL (PF). 1,000 MCG in SODIUM CHLORIDE 0.9% 80 ML IV SCH ×5 (02:01→20:32)
[2021-04-08 03:47] LABS: Basophils % (A) 0 %; Eosinophils # (A) 0.3 k/uL (0-0.7); Eosinophils % (A) 2 %; HGB 10.6 gm/dL (11.4-16.0); Lymphocytes # (A) 1.4 k/uL (1.0-4.8); Lymphocytes % (A) 12 %; MCH 29.7 pg (25.0-35.0); MCHC 32.1 g/dL (31.0-37.0); MCV 92.3 fL (80.0-100.0); Mean Platelet Volume 7.5; Monocytes # (A) 0.6 k/uL (0-1.0); Monocytes % (A) 5 %; Neutrophils # (A) 9.6 k/uL (1.3-7.7); Neutrophils % (A) 79 %; Platelet Count 529 k/uL (150-450); RBC 3.58 m/uL (3.80-5.40); RDW 14.4 % (11.5-15.5); WBC 12.1 k/uL (3.8-10.6)
[2021-04-08 04:17] LABS: ALT 67 U/L (4-34); AST 45 U/L (14-36); African American GFR (CKD) >90 (>60 ml/min/1.73 sqM); Albumin 2.3 g/dL (3.5-5.0); Alkaline Phosphatase 157 U/L (38-126); Anion Gap 7 mmol/L; Blood Urea Nitrogen 15 mg/dL (7-17); Calcium 8.2 mg/dL (8.4-10.2); Carbon Dioxide 29 mmol/L (22-30); Chloride 95 mmol/L (98-107); Glucose 199 mg/dL (74-99); Non-African American GFR(CKD) >90 (>60 ml/min/1.73 sqM); Sodium 131 mmol/L (137-145); Total Bilirubin 0.5 mg/dL (0.2-1.3); Total Protein 5.5 g/dL (6.3-8.2)
[2021-04-08 04:41] LABS: Potassium 4.5 mmol/L (3.5-5.1)
[2021-04-08] MEDS: AMPICILLIN-SULBACTAM 1.5 GM in SODIUM CHLORIDE 0.9% 50 ML IVPB SCH ×4 (05:05→23:00)
[2021-04-08 05:55] LABS: Glucose,Whole Blood 216 mg/dL (75-99)
[2021-04-08] MEDS: INSULIN ASPART (NovoLOG) 100 UNIT/ML VIAL SQ SCH ×4 (06:04→23:13)
[2021-04-08] MEDS: INSULIN DETEMIR (LEVEMIR) 100 UNIT/ML SYR SQ SCH (06:05)
[2021-04-08] MEDS: LEVOTHYROXINE 75 MCG TAB PO SCH (06:07)
[2021-04-08 06:12] LABS: ABG Base Excess 9.8 mmol/L; ABG HCO3 34 mmol/L (21-25); ABG Oxygen Saturation 95.4 % (94-97); ABG PCO2 49 mmHg (35-45); ABG PH 7.45 (7.35-7.45); ABG PO2 75 mmHg (83-108); ABG TCO2 35 mmol/L (19-24); Allen Test Performed? Yes
[2021-04-08] MEDS ORDERED: propofoL 100 ML IV ONE (08:18)
[2021-04-08] MEDS: DEXAMETHASONE SOD PHOSPHATE 10 MG/ML 1 ML VIAL IVP SCH (08:39)
[2021-04-08] MEDS: CHOLECALCIFEROL 25 MCG (1000 IU) TABLET PO SCH (08:39)
[2021-04-08] MEDS: PANTOPRAZOLE 40 MG/10 ML VIAL IVP SCH (08:39)
[2021-04-08] MEDS: ASCORBIC ACID 500 MG TAB PO SCH (08:39)
[2021-04-08] MEDS: ARTIFICIAL TEARS-HYPROMELLOSE DROPS 15 ML BTL BOTH EYES SCH ×4 (08:39→22:14)
[2021-04-08] MEDS: ZINC SULFATE 220 MG CAP PO SCH (08:39)
[2021-04-08] MEDS: ENOXAPARIN 40 MG/0.4 ML SYRINGE SQ SCH (08:40)
[2021-04-08] MEDS: CHLORHEXIDINE GLUCONATE 15 ML CUP MUCOUS MEM SCH ×2 (08:40→20:40)
--- NOTE | 2021-04-08 08:41 | P.PN ---
Subjective Progress Note Date: 04/08/21 65-year-old female patient presented with symptoms of shortness of breath and patient was diagnosed having COVID 19 to pneumonia. The patient symptoms started approximately 11 days prior tp admission. She also had diminished appetite, weakness, tiredness, fatigue, cough along with some shortness of mattie ath. The chest x-ray showed reticular and some minimal opacities in the lower lung merino bilaterally. The patient was found to be hypoxic and the patient was placed on oxygen at 3 L and the oxygen flows being titrated to maintain saturation above 90%. Subsequently she was brought up to 6 L to maintain a good oxygen saturation. During the course of her illness, the patient became progressively more hypoxic. The patient decompensated on a combination of Decadron and Baricitinib. The patient was transitioned to a BiPAP and ultimately the patient had to be intubated and placed on mechanical ventilator on 03/25/2021. She did grow MSSA in her sputum and currently she is on IV Unasyn. She became hypotensive and the patient was taken off the Baricitinib and the patient is currently on norepinephrine infusion for blood pressure control. The patient ultimately underwent a tracheostomy and a PEG tube insertion on 04/05/2021. Chest x-ray continued to show diffuse bibasilar airspace opacities. She remains sedated with propofol and fentanyl and the patient was also Paralyzed with Nimex and this was disctonued yesterday. She remains on a mechanical ventilator and this control mode at the rate of 20 with a tidal volume of 375 mL an FiO2 of 50% with a PEEP of 15. The peak airway pr essure is 31. The plateau airway pressure is 30. The chest x-ray from today still pending. Yesterday's chest x-ray showed diffuse bilateral pulmonary infiltrates. The patient is a tracheostomy tube which is a Bivona #8 and the tube is in a good location. The patient has ongoing infiltration more so in the lung bases bilaterally. Propofol is currently running at 40 mg/kg per minute. Fentanyl is running at 3.5 mcg/kg/h and Nimbex is off. Patient remains on IV Unasyn. The patient remains on Decadron. The patient remains on Lovenox for DVT prophylaxis. She did require pressors at one point and currently she is off pressors. Cardiac rhythm is sinus. She is receiving vital AF at the rate of 19 in our for enteral feedings and nutritional support through her PEG tube. She has been tolerating her enteral feeding for nutritional support. The blood work today shows a white cell count of 12.0 with hemoglobin of 10.6 and a platelet count of 529. Blood gases from today showed a pH of 7.45 with a pCO2 of 49 and pO2 of 75. TPN is a 50 with a creatinine of 0.3, sodium is at 131, LFTs show some mild elevation of the ALT and AST. The CRP level is at 716 CRP level is at 20.6 and LDH level is at 716. Meanwhile, the patient is currently on Decadron as 6 mg on a daily basis and the patient is also on IV Unasyn for MSSA growing the sputum. The patient is in the correlation with Lovenox 40 mg subcu for DVT prophylaxis. The patient on Levemir insulin 10 units daily addition to his vascular coverage. She remains on IV Protonix. IV fluids are currently at KVO. Objective - Vital Signs Vital signs: Vital Signs Temp 98.1 F 04/08/21 04:00 Pulse 98 04/08/21 07:00 Resp 20 04/08/21 07:00 BP 115/73 04/08/21 07:00 Pulse Ox 94 L 04/08/21 07:00 Intake & Output 04/07/21 04/08/21 04/08/21 18:59 06:59 18:59 Intake Total 1078.488 947.795 35 Output Total 2390 610 35 Balance -1311.512 337.795 0 Weight 88.5 kg Intake: IV 305 162 16 Ampicillin-Sulbactam 1.5 50 gm In Sodium Chloride 0.9 % 50 ml @ 100 mls/hr IVPB Q6HR [facility] Rx#:[id number] Sodium Chloride 0.9% 1, 210 90 10 000 ml @ 20 mls/hr IV . Q24H [facility] Rx#:[id number] pressure bag 45 72 6 Intake, IV Titration 448.488 348.795 Amount Cisatracurium 200 mg In 73.822 Sodium Chloride 0.9% 180 ml @ 1 MCG/KG/MIN 4.218 mls/hr IV .Q24H [facility] Rx#: [id number] fentaNYL (PF). 1,000 mcg 274.666 249.940 In Sodium Chloride 0.9% 80 ml @ 0.5 MCG/KG/HR 3. 515 mls/hr IV .Q24H [facility] Rx#:[id number] propofoL 1,000 mg In 100 98.855 Empty Bag 1 bag @ Titrate IV .Q0M [facility] Rx#: [id number] Oral 100 Tube Feeding 235 247 19 Other 90 90 Output: Urine 2390 610 35 Other: Voiding Method Indwelling Catheter Indwelling Catheter Indwelling Catheter ABP, PAP, CO, CI - Last Documented Arterial Blood Pressure 130/61 - Exam GENERAL EXAM: Sedated and paralyzed, very pleasant 65 yo white female on assi st-control mode of ventilation with a rate of 20, tidal v is 375 FiO2 50% and PEEP of 15 HEAD: Normocephalic/atraumatic. EYES: Normal reaction of pupils, equal size. Conjunctiva pink, sclera white. NOSE: Clear with pink turbinates. THROAT: No erythema or exudates. NECK: No masses, no JVD, no thyroid enlargement, no adenopathy. CHEST: No chest wall deformity. Symmetrical expansion. LUNGS: Equal air entry with basilar rales CVS: Regular rate and rhythm, normal S1 and S2, no gallops, no murmurs, no rubs ABDOMEN: Soft, nontender. No hepatosplenomegaly, normal bowel sounds, no guarding or rigidity. EXTREMITIES: No clubbing, no edema, no cyanosis, 2+ pulses and upper and lower extremities. MUSCULOSKELETAL: Muscle strength and tone normal. SPINE: No scoliosis or deformity SKIN: No rashes CENTRAL NERVOUS SYSTEM: Sedated and NOT paralyzed No focal deficits, tone is normal in all 4 extremities. - Labs CBC & Chem 7: 04/08/21 03:40 04/08/21 03:40 Labs: Abnormal Lab Results - Last 24 Hours (Table) 04/07/21 04/07/21 04/07/21 Range/Units 08:35 11:59 16:51 WBC (3.8-10.6) k/uL RBC (3.80-5.40) m/uL Hgb (11.4-16.0) gm/dL Hct (34.0-46.0) % Plt Count (150-450) k/uL Neutrophils # (1.3-7.7) k/uL ABG pCO2 (35-45) mmHg ABG pO2 (83-108) mmHg ABG HCO3 (21-25) mmol/L ABG Total CO2 (19-24) mmol/L Sodium (137-145) mmol/L Chloride (98-107) mmol/L Creatinine (0.52-1.04) mg/dL Glucose (74-99) mg/dL POC Glucose (mg/dL) 125 H 170 H 245 H (75-99) mg/dL Calcium (8.4-10.2) mg/dL AST (14-36) U/L ALT (4-34) U/L Alkaline Phosphatase (38-126) U/L Total Protein (6.3-8.2) g/dL Albumin (3.5-5.0) g/dL 04/07/21 04/08/21 04/08/21 Range/Units 23:18 03:40 03:40 WBC 12.1 H (3.8-10.6) k/uL RBC 3.58 L (3.80-5.40) m/uL Hgb 10.6 L (11.4-16.0) gm/dL Hct 33.0 L (34.0-46.0) % Plt Count 529 H (150-450) k/uL Neutrophils # 9.6 H (1.3-7.7) k/uL ABG pCO2 (35-45) mmHg ABG pO2 (83-108) mmHg ABG HCO3 (21-25) mmol/L ABG Total CO2 (19-24) mmol/L Sodium 131 L (137-145) mmol/L Chloride 95 L (98-107) mmol/L Creatinine 0.34 L (0.52-1.04) mg/dL Glucose 199 H (74-99) mg/dL POC Glucose (mg/dL) 203 H (75-99) mg/dL Calcium 8.2 L (8.4-10.2) mg/dL AST 45 H (14-36) U/L ALT 67 H (4-34) U/L Alkaline Phosphatase 157 H (38-126) U/L Total Protein 5.5 L (6.3-8.2) g/dL Albumin 2.3 L (3.5-5.0) g/dL 04/08/21 04/08/21 Range/Units 05:53 06:10 WBC (3.8-10.6) k/uL RBC (3.80-5.40) m/uL Hgb (11.4-16.0) gm/dL Hct (34.0-46.0) % Plt Count (150-450) k/uL Neutrophils # (1.3-7.7) k/uL ABG pCO2 49 H (35-45) mmHg ABG pO2 75 L (83-108) mmHg ABG HCO3 34 H (21-25) mmol/L ABG Total CO2 35 H (19-24) mmol/L Sodium (137-145) mmol/L Chloride (98-107) mmol/L Creatinine (0.52-1.04) mg/dL Glucose (74-99) mg/dL POC Glucose (mg/dL) 216 H (75-99) mg/dL Calcium (8.4-10.2) mg/dL AST (14-36) U/L ALT (4-34) U/L Alkaline Phosphatase (38-126) U/L Total Protein (6.3-8.2) g/dL Albumin (3.5-5.0) g/dL Microbiology - Last 24 Hours (Table) 04/05/21 20:42 Gram Stain - Preliminary Sputum Sputum Culture - Preliminary Presumptive Staph aureus Assessment and Plan Plan: 1 acute bilateral COVID 19 related pneumonia. This patient is not vaccinated. The patient became symptomatic approximately 11 days ago. The patient is presenting with worsening shortness of breath and currently the patient has hypoxic respiratory failure . CT angiogram negative for pulmonary embolism. Doppler of the lower extremity was negative for DVT. The patient was treated with a combination of Baricitinib and Decadron per protocol. Intubated on 03/25/2021. Patient was outside the window for Remdesivir, due to progressive hypoxia. She was not vaccinated. She was started on Baricitinib on 03/22/2021. Transfer to the intensive care unit on 03/25/2021, and intubated on the same date. Patient received tracheostomy and PEG tube on 04/05/2021. The patient currently is on Decadron. The patient is off paralytics. The patient remains on sedation. There is some limited improvement in the blood gas. The chest x- ray still showing diffuse bilateral pulmonary infiltrates. The Bivona tracheostomy tube was in a good location. 2 acute hypoxic respiratory failure secondary to above 3 elevated inflammatory markers including LDH, mildly elevated D dimers. Secondary to above. 4 diabetes mellitus with a component of steroid use hyperglycemia not currently on Levemir insulin 5 hypothyroidism 6 hyperlipidemia 7. Pneumomediastinum with subcutaneous emphysema, resolved 8. MSSA pneumonia, patient is covered with Unasyn Plan: Keep off paralytics take the patient off the sedation and assess the mental status and give the patient a sedation holiday today. Very important to evaluate her mental status. Start the patient on Lasix 40mg on a daily basis, IV Hemodynamically stable Continue weaning FiO2 to keep O2 sats ration sat 90% and above Continue Decadron, continue Lovenox Continue multivitamins Continue Unasyn until we have finalized sputum culture However her last pro-calcitonin level was still elevated Continue nutritional support Follow-up labs CBC, CMP, chest x-ray and blood gas tomorrow No further room for weaning on today's evaluation. Very important to assess mental status change. The plan for today is to keep her in a negative fluid balance and diabetes as the patient has significant signs of fluid overload. Awaiting the follow-up sputum samples to see if there is any other growth other than staph aureus. The presumptive growth is staph aureus MSSA for now and the patient is on IV Unasyn. Continue Levemir insulin for blood sugar control. Continue Lovenox. Condition stable. Prognosis poor baseline above-mentioned comorbidities. Poor outcome in general. Continue care evaluation that was done and more than 30 minutes. Time with Patient: Greater than 30
[2021-04-08] MEDS: ALBUTEROL HFA INHALER INHALATION SCH ×4 (09:11→19:28)
[2021-04-08] MEDS: FUROSEMIDE 10 MG/ML 4 ML VIAL IV SCH (09:22)
[2021-04-08] MEDS: SODIUM CHLORIDE 0.9% 1,000 ML IV SCH (10:44)
[2021-04-08 11:46] LABS: Glucose,Whole Blood 220 mg/dL (75-99)
--- NOTE | 2021-04-08 12:07 | P.PN ---
Subjective Progress Note Date: 04/08/21 This is 65-year-old female with past medical history of diabetes mellitus, hyperlipidemia, hypertension, osteoarthritis, no smoking history presented to the ER with worsening dyspnea 10 days accompanied by loss of appetite, fatigue, cough. Denies fevers or sweats. Denies muscle aches. On admission patient was febrile with temperature 99.1, WBC 5.2, tachycardic, cachectic, maintaining O2 sats of 88% on room air. Patient's respiratory status has further worsened and currently maintaining O2 sats of mid 90s on 3 L nasal cannula. Displays exertional dyspnea after ambulating from BR. Coronavirus PCR positive. D-dimer 0.39, LDH 1108, CRP 18.6. Chest x-ray reporting reticular and some minimal patc hy opacity's over bilateral lower lungs, left greater than right. Hemoglobin 14.5, platelets 287. Sodium currently 132, potassium 5, BUN 27, creatinine 0.77. A.m. Accu-Chek currently being obtained, the blood sugar 231 last night. Denies chest pain, palpitations. 03/20/2021 continues on covid cocktail .oxygen requirements worsened, currently requiring 10 L high flow nasal cannula to maintain O2 sats in the high 80s to low 90s. Reports had coughing spells last night but no cough this morning .exertional shortness of breath .Denies chest pain, palpitations. Afebrile. Ambulatory markers improving with the exception of mild increase in d- dimer.Calcitonin minimally elevated, 0.12. BMP pending. Blood sugars better improving. 03/21/21 maintaining O2 sats in the low 90s on 2 L nasal cannula. Reports minimal nonproductive cough, exertional shortness of breath, loose stools. Blood sugars controlled .Denies chest pain, palpitations. Denies diaphoresis. Afebrile. 03/22/2021 O2 requirements worsened, currently requiring 15 L high flow. Anxious. Current the afebrile, T-max 99.8, labs pending. Yesterday consuming 50-75% of diet. This morning some hypoglycemia, currently 85. Hemoglobin A1c 6.5 03/25/2021 respiratory status worsened .BiPAP at 100%, maintaining O2 sats of m id 80s, transferred to ICU. Anxious. Precedex initiated. Labs pending. 03/26/21 remains vent dependent with FiO2 70/+14 of PEEP. Maintained on diprovan, fentanyl and Pneumovax. Afebrile, normal WBC. Chest x-ray reporting diffuse interstitial pattern of bilateral infiltrates and pleural effusion. 03/27/2021 remains vent dependent, FiO2 60%/+16 of PEEP. Chest x-ray reporting diffuse pleural-parenchymal changes.Maintained on Nimbex, Levophed, fentanyl, diprovan. Continues on covid cocktail. 03/28/2021 FiO2 50%/+16 of PEEP. Chest x-ray reporting extensive subcutaneous emphysema with no change in bibasilar opacities. Levophed weaned off. Maintained on diprovan, Nimbex, fentanyl drips. Covid cocktail. Afebrile, T-max 99.9, WBC 11.8. BUN 36, creatinine 0.58. Blood sugars in the 200s. 03/29/2021 FiO2 50%/+16 of PEEP. Maintained on Levophed ,Nimbex and fentanyl drips. Chest x-ray reporting continued bilateral infiltrates, worsening subcutaneous emphysema. 3 catheters placed in left anterior chest wall right and left supraclavicular areas for decompression.Afebrile, T-max 99.4. 04/01/2021 vent dependent,FIO2 55%/+12 Peep. Maintained on Nimbex, Levophed diprovan and fentanyl drips. Chest x-ray reporting continued bilateral peripheral basilar Covid pneumonia without significant change, improving bilateral subcutaneous emphysema. Afebrile, T-max 99.1, WBC 12.5, Sputum reporting MSSA Evaluated by cardiology, echo ordered and pending. 04/02/2021 FiO2 50%/+15 of PEEP. Chest x-ray reporting bilateral airspace disease consistent with Covid pneumonia, improving subcutaneous emphysema. Maintained on diprovan, fentanyl, Nimbex. Levophed off and on throughout the night, currently off. Echo pending. Currently afebrile, T-max 99.1, WBC 12.2. D-dimer decreased to 1.1, LDH and CRP increased. 04/03/2021 FiO2 50/+15 of PEEP. Chest x-ray reporting similar bilateral airspace disease with subcutaneous emphysema. Maintained on Nimbex, fentanyl and diprovan. Echo reporting hyperdynamic systolic function, EF greater than 70% moderate pulmonary hypertension. 04/04/2021 remains vent dependent, FiO2 50%/PEEP of 15. Continues on Unasyn for MSSA-sputum, cold faded cocktail. Chest x-ray reporting persistent with slight improving peripheral and basilar Covid pneumonia. Maintained on Nimbex, fentanyl, diprovan. Weaning of paralytics in progress .Sinus rhythm. Sodium 133, Potassium 3.4. Inflammatory markers trending down with the exception of [id number] increased. Blood sugars controlled. 04/05/2021 FiO2 60%/+15 of PEEP; staff reports FiO2 bumped up during the night as patient had desatted. Chest x-ray reporting slight improvement but pe rsistent peripheral basilar airspace opacities. ABGs noted, reporting pO2 of 96. Maintained on diprovan, fentanyl, Nimbex, with norepinephrine resumed. Telemetry sinus rhythm. Scheduled for trach and peg today, tube feeds on hold. Continues on Unasyn, covid cocktail. Afebrile, T-max 101, WBC increased to 16.9 sputum, blood and urine cultures ordered. Inflammatory markers increased. 04/08/2021 FiO2 50%/+15 of PEEP maintained on fentanyl and diprovan drips.Nimbex weaned off yesterday. Remains off of pressors 24 hours. Telemetry sinus rhythm. Tolerating tube feeds at goal with minimal to no residuals. Continues on Unasyn, T-max 99, repeat sputum culture in progress. Objective - Vital Signs Vital signs: Vital Signs Temp 99 F 04/08/21 08:00 Pulse 92 04/08/21 10:00 Resp 23 04/08/21 10:00 BP 122/59 04/08/21 10:00 Pulse Ox 92 L 04/08/21 10:00 Intake & Output 04/07/21 04/08/21 04/08/21 18:59 06:59 18:59 Intake Total 1078.488 947.795 388.835 Output Total 2390 610 925 Balance -1311.512 337.795 -536.165 Weight 88.5 kg Intake: IV 305 162 64 Ampicillin-Sulbactam 1.5 50 gm In Sodium Chloride 0.9 % 50 ml @ 100 mls/hr IVPB Q6HR [facility] Rx#:[id number] Sodium Chloride 0.9% 1, 210 90 40 000 ml @ 20 mls/hr IV . Q24H [facility] Rx#:[id number] pressure bag 45 72 24 Intake, IV Titration 448.488 348.795 199.835 Amount Cisatracurium 200 mg In 73.822 Sodium Chloride 0.9% 180 ml @ 1 MCG/KG/MIN 4.218 mls/hr IV .Q24H [facility] Rx#: [id number] fentaNYL (PF). 1,000 mcg 274.666 249.940 99.835 In Sodium Chloride 0.9% 80 ml @ 0.5 MCG/KG/HR 3. 515 mls/hr IV .Q24H [facility] Rx#:[id number] propofoL 1,000 mg In 100 98.855 100 Empty Bag 1 bag @ Titrate IV .Q0M [facility] Rx#: [id number] Oral 100 Tube Feeding 235 247 95 Other 90 90 30 Output: Urine 2390 610 925 Other: Voiding Method Indwelling Catheter Indwelling Catheter Indwelling Catheter ABP, PAP, CO, CI - Last Documented Arterial Blood Pressure 144/66 - Exam Limited PHYSICAL EXAM on a intubated covid patient: VITAL SIGNS: As above GENERAL: Maintained on mechanical ventilator, sedated. CARDIOVASCULAR: S1, S2 regular. Telemetry sinus rhythm ABD: Nondistended NERVOUS SYSTEM: Unable to evaluate, patient sedated. Microbiology 04/05/21 20:42 Sputum Gram Stain - Final 04/05/21 20:42 Sputum Sputum Culture - Final Staphylococcus aureus 04/05/21 14:30 Urine,Catheterized Urine Culture - Final 03/28/21 17:15 Sputum Gram Stain - Final 03/28/21 17:15 Sputum Sputum Culture - Final Staphylococcus aureus - Labs CBC & Chem 7: 04/08/21 03:40 04/08/21 03:40 Labs: Abnormal Lab Results - Last 24 Hours (Table) 04/07/21 04/07/21 04/07/21 Range/Units 11:59 16:51 23:18 WBC (3.8-10.6) k/uL RBC (3.80-5.40) m/uL Hgb (11.4-16.0) gm/dL Hct (34.0-46.0) % Plt Count (150-450) k/uL Neutrophils # (1.3-7.7) k/uL ABG pCO2 (35-45) mmHg ABG pO2 (83-108) mmHg ABG HCO3 (21-25) mmol/L ABG Total CO2 (19-24) mmol/L Sodium (137-145) mmol/L Chloride (98-107) mmol/L Creatinine (0.52-1.04) mg/dL Glucose (74-99) mg/dL POC Glucose (mg/dL) 170 H 245 H 203 H (75-99) mg/dL Calcium (8.4-10.2) mg/dL AST (14-36) U/L ALT (4-34) U/L Alkaline Phosphatase (38-126) U/L Total Protein (6.3-8.2) g/dL Albumin (3.5-5.0) g/dL 04/08/21 04/08/21 04/08/21 Range/Units 03:40 03:40 05:53 WBC 12.1 H (3.8-10.6) k/uL RBC 3.58 L (3.80-5.40) m/uL Hgb 10.6 L (11.4-16.0) gm/dL Hct 33.0 L (34.0-46.0) % Plt Count 529 H (150-450) k/uL Neutrophils # 9.6 H (1.3-7.7) k/uL ABG pCO2 (35-45) mmHg ABG pO2 (83-108) mmHg ABG HCO3 (21-25) mmol/L ABG Total CO2 (19-24) mmol/L Sodium 131 L (137-145) mmol/L Chloride 95 L (98-107) mmol/L Creatinine 0.34 L (0.52-1.04) mg/dL Glucose 199 H (74-99) mg/dL POC Glucose (mg/dL) 216 H (75-99) mg/dL Calcium 8.2 L (8.4-10.2) mg/dL AST 45 H (14-36) U/L ALT 67 H (4-34) U/L Alkaline Phosphatase 157 H (38-126) U/L Total Protein 5.5 L (6.3-8.2) g/dL Albumin 2.3 L (3.5-5.0) g/dL 04/08/21 Range/Units 06:10 WBC (3.8-10.6) k/uL RBC (3.80-5.40) m/uL Hgb (11.4-16.0) gm/dL Hct (34.0-46.0) % Plt Count (150-450) k/uL Neutrophils # (1.3-7.7) k/uL ABG pCO2 49 H (35-45) mmHg ABG pO2 75 L (83-108) mmHg ABG HCO3 34 H (21-25) mmol/L ABG Total CO2 35 H (19-24) mmol/L Sodium (137-145) mmol/L Chloride (98-107) mmol/L Creatinine (0.52-1.04) mg/dL Glucose (74-99) mg/dL POC Glucose (mg/dL) (75-99) mg/dL Calcium (8.4-10.2) mg/dL AST (14-36) U/L ALT (4-34) U/L Alkaline Phosphatase (38-126) U/L Total Protein (6.3-8.2) g/dL Albumin (3.5-5.0) g/dL Microbiology - Last 24 Hours (Table) 04/05/21 20:42 Gram Stain - Final Sputum Sputum Culture - Final Staphylococcus aureus Assessment and Plan Assessment: Acute COVID-19 pneumonia with underlying MSSA pneumonia-on Unasyn Acute hypoxic respiratory failure secondary to the above, mechanical vent dependent. Status post trach and PEG tube placement. Subcutaneous emphysema and pneumomediastinum secondary to Covid., Status post 3 decompression catheters, resolved. Hyponatremia, mild, resolved Diabetes mellitus, hyperglycemic hemoglobin A1c 6.5, in addition to steroid contribution Hypothyroidism Hyperlipidemia Plan: Continue on current medication regime ,monitoring and symptomatic treatment. Follow up sputum culture finalizing. Resume Levemir, as it had been held yesterday. Close monitoring of Accu-Cheks. Covid cocktail. ICU management as per machine operator hay stacker.Prognosis guarded given multiple complex medical issues. The impression and plan of care has been dictated as directed. : I performed a history and examination of this patient, discussed the same with the dictator. I agree with the dictator's note ,documented as a scribe. Any additional findings or plans will be noted.
--- NOTE | 2021-04-08 12:48 | P.PN ---
Subjective Progress Note Date: 04/08/21 CHIEF COMPLAINT: COVID-19 pneumonia HISTORY OF PRESENT ILLNESS: Patient is in the ICU and on mechanical ventilation. She is status post tracheostomy and PEG tube site. She is tolerating her tube feeds and they are at goal. Afebrile WBC 12.1 Hgb 10.6 PHYSICAL EXAM: VITAL SIGNS: Reviewed. GENERAL: Well-developed in no acute distress. HEENT: Moist buccal mucosa. Head is atraumatic, normocephalic. Tracheostomy site clean dry and intact ABDOMEN: Soft. Nondistended. PEG tube site clean dry and intact NEUROLOGIC: On mechanical ventilation and sedated ASSESSMENT: 1. Acute hypoxic respiratory failure secondary to COVID-19 pneumonia. Status post tracheostomy placement 2. Severe protein calorie malnutrition status post PEG tube placement PLAN: -Continue tube feedings -Continue ICU management -Continue supportive care Physician Keypunch Operators Supervisor note has been reviewed by physician. Signing provider agrees with the documented findings, assessment, and plan of care. Objective - Vital Signs Vital signs: Vital Signs Temp 99 F 04/08/21 08:00 Pulse 92 04/08/21 10:00 Resp 23 04/08/21 10:00 BP 122/59 04/08/21 10:00 Pulse Ox 92 L 04/08/21 10:00 Intake & Output 04/07/21 04/08/21 04/08/21 18:59 06:59 18:59 Intake Total 1078.488 947.795 388.835 Output Total 2390 610 925 Balance -1311.512 337.795 -536.165 Weight 88.5 kg Intake: IV 305 162 64 Ampicillin-Sulbactam 1.5 50 gm In Sodium Chloride 0.9 % 50 ml @ 100 mls/hr IVPB Q6HR [facility] Rx#:[id number] Sodium Chloride 0.9% 1, 210 90 40 000 ml @ 20 mls/hr IV . Q24H [facility] Rx#:[id number] pressure bag 45 72 24 Intake, IV Titration 448.488 348.795 199.835 Amount Cisatracurium 200 mg In 73.822 Sodium Chloride 0.9% 180 ml @ 1 MCG/KG/MIN 4.218 mls/hr IV .Q24H [facility] Rx#: [id number] fentaNYL (PF). 1,000 mcg 274.666 249.940 99.835 In Sodium Chloride 0.9% 80 ml @ 0.5 MCG/KG/HR 3. 515 mls/hr IV .Q24H [facility] Rx#:[id number] propofoL 1,000 mg In 100 98.855 100 Empty Bag 1 bag @ Titrate IV .Q0M [facility] Rx#: [id number] Oral 100 Tube Feeding 235 247 95 Other 90 90 30 Output: Urine 2390 610 925 Other: Voiding Method Indwelling Catheter Indwelling Catheter Indwelling Catheter ABP, PAP, CO, CI - Last Documented Arterial Blood Pressure 144/66 - Labs CBC & Chem 7: 04/08/21 03:40 04/08/21 03:40 Labs: Abnormal Lab Results - Last 24 Hours (Table) 04/07/21 04/07/21 04/08/21 Range/Units 16:51 23:18 03:40 WBC 12.1 H (3.8-10.6) k/uL RBC 3.58 L (3.80-5.40) m/uL Hgb 10.6 L (11.4-16.0) gm/dL Hct 33.0 L (34.0-46.0) % Plt Count 529 H (150-450) k/uL Neutrophils # 9.6 H (1.3-7.7) k/uL ABG pCO2 (35-45) mmHg ABG pO2 (83-108) mmHg ABG HCO3 (21-25) mmol/L ABG Total CO2 (19-24) mmol/L Sodium (137-145) mmol/L Chloride (98-107) mmol/L Creatinine (0.52-1.04) mg/dL Glucose (74-99) mg/dL POC Glucose (mg/dL) 245 H 203 H (75-99) mg/dL Calcium (8.4-10.2) mg/dL AST (14-36) U/L ALT (4-34) U/L Alkaline Phosphatase (38-126) U/L Total Protein (6.3-8.2) g/dL Albumin (3.5-5.0) g/dL 04/08/21 04/08/21 04/08/21 Range/Units 03:40 05:53 06:10 WBC (3.8-10.6) k/uL RBC (3.80-5.40) m/uL Hgb (11.4-16.0) gm/dL Hct (34.0-46.0) % Plt Count (150-450) k/uL Neutrophils # (1.3-7.7) k/uL ABG pCO2 49 H (35-45) mmHg ABG pO2 75 L (83-108) mmHg ABG HCO3 34 H (21-25) mmol/L ABG Total CO2 35 H (19-24) mmol/L Sodium 131 L (137-145) mmol/L Chloride 95 L (98-107) mmol/L Creatinine 0.34 L (0.52-1.04) mg/dL Glucose 199 H (74-99) mg/dL POC Glucose (mg/dL) 216 H (75-99) mg/dL Calcium 8.2 L (8.4-10.2) mg/dL AST 45 H (14-36) U/L ALT 67 H (4-34) U/L Alkaline Phosphatase 157 H (38-126) U/L Total Protein 5.5 L (6.3-8.2) g/dL Albumin 2.3 L (3.5-5.0) g/dL 04/08/21 Range/Units 11:44 WBC (3.8-10.6) k/uL RBC (3.80-5.40) m/uL Hgb (11.4-16.0) gm/dL Hct (34.0-46.0) % Plt Count (150-450) k/uL Neutrophils # (1.3-7.7) k/uL ABG pCO2 (35-45) mmHg ABG pO2 (83-108) mmHg ABG HCO3 (21-25) mmol/L ABG Total CO2 (19-24) mmol/L Sodium (137-145) mmol/L Chloride (98-107) mmol/L Creatinine (0.52-1.04) mg/dL Glucose (74-99) mg/dL POC Glucose (mg/dL) 220 H (75-99) mg/dL Calcium (8.4-10.2) mg/dL AST (14-36) U/L ALT (4-34) U/L Alkaline Phosphatase (38-126) U/L Total Protein (6.3-8.2) g/dL Albumin (3.5-5.0) g/dL Microbiology - Last 24 Hours (Table) 04/05/21 20:42 Gram Stain - Final Sputum Sputum Culture - Final Staphylococcus aureus
[2021-04-08 16:43] LABS: Glucose,Whole Blood 163 mg/dL (75-99)
[2021-04-08 18:06] LABS: Glucose,Whole Blood 149 mg/dL (75-99)
[2021-04-08] MEDS: lisinopriL 10 MG TAB PO SCH (20:40)
[2021-04-08] MEDS: ATORVASTATIN 40 MG TAB PO SCH (20:40)
[2021-04-08 23:05] LABS: Glucose,Whole Blood 137 mg/dL (75-99)
[2021-04-09] MEDS ORDERED: NOREPINEPHRINE 32 MG in SODIUM CHLORIDE 0.9% 218 ML IV SCH (00:15)
[2021-04-09] MEDS: NOREPINEPHRINE 8 MG in SODIUM CHLORIDE 0.9% 250 ML IV SCH ×2 (00:29→23:16)
[2021-04-09] MEDS: fentaNYL (PF). 1,000 MCG in SODIUM CHLORIDE 0.9% 80 ML IV SCH ×3 (01:25→18:25)
[2021-04-09] MEDS: SODIUM CHLORIDE 0.9% 1,000 ML IV SCH ×2 (03:00→18:23)
[2021-04-09 05:02] LABS: Glucose,Whole Blood 112 mg/dL (75-99)
[2021-04-09 05:17] LABS: Basophils % (A) 0 %; Eosinophils # (A) 0.4 k/uL (0-0.7); Eosinophils % (A) 4 %; HCT 29.6 % (34.0-46.0); HGB 9.7 gm/dL (11.4-16.0); Lymphocytes # (A) 2.1 k/uL (1.0-4.8); Lymphocytes % (A) 18 %; MCH 30.3 pg (25.0-35.0); MCHC 32.9 g/dL (31.0-37.0); MCV 92.2 fL (80.0-100.0); Mean Platelet Volume 7.6; Monocytes # (A) 0.6 k/uL (0-1.0); Monocytes % (A) 5 %; Neutrophils # (A) 8.4 k/uL (1.3-7.7); Neutrophils % (A) 71 %; Platelet Count 544 k/uL (150-450); RBC 3.21 m/uL (3.80-5.40); RDW 14.3 % (11.5-15.5); WBC 11.7 k/uL (3.8-10.6)
[2021-04-09] MEDS: INSULIN ASPART (NovoLOG) 100 UNIT/ML VIAL SQ SCH ×4 (05:33→23:15)
[2021-04-09 05:53] LABS: ABG Base Excess 12.7 mmol/L; ABG HCO3 37 mmol/L (21-25); ABG Oxygen Saturation 95.3 % (94-97); ABG PCO2 52 mmHg (35-45); ABG PH 7.45 (7.35-7.45); ABG PO2 74 mmHg (83-108); ABG TCO2 38 mmol/L (19-24); Allen Test Performed? Yes
[2021-04-09 06:03] LABS: Chloride 97 mmol/L (98-107)
[2021-04-09 06:08] LABS: ALT 49 U/L (4-34); AST 29 U/L (14-36); African American GFR (CKD) >90 (>60 ml/min/1.73 sqM); Albumin 2.1 g/dL (3.5-5.0); Alkaline Phosphatase 130 U/L (38-126); Anion Gap 5 mmol/L; Blood Urea Nitrogen 12 mg/dL (7-17); Carbon Dioxide 33 mmol/L (22-30); Glucose 113 mg/dL (74-99); LDH 712 U/L (313-618); Non-African American GFR(CKD) >90 (>60 ml/min/1.73 sqM); Potassium 3.2 mmol/L (3.5-5.1); Sodium 135 mmol/L (137-145); Total Bilirubin 0.2 mg/dL (0.2-1.3)
[2021-04-09] MEDS: AMPICILLIN-SULBACTAM 1.5 GM in SODIUM CHLORIDE 0.9% 50 ML IVPB SCH ×4 (06:15→23:18)
[2021-04-09 06:22] LABS: C Reactive Protein 15.3 mg/dL (<1.0)
[2021-04-09] MEDS: POTASSIUM BICARB-CITRIC ACID 25 MEQ TABLET.EFF PO SCH ×4 (06:48→09:38)
[2021-04-09] MEDS: LEVOTHYROXINE 75 MCG TAB PO SCH (06:49)
[2021-04-09] MEDS: INSULIN DETEMIR (LEVEMIR) 100 UNIT/ML SYR SQ SCH (06:49)
[2021-04-09] MEDS: ALBUTEROL HFA INHALER INHALATION SCH ×4 (07:46→18:57)
[2021-04-09] MEDS: CHLORHEXIDINE GLUCONATE 15 ML CUP MUCOUS MEM SCH ×2 (08:54→20:06)
[2021-04-09] MEDS: ZINC SULFATE 220 MG CAP PO SCH (08:55)
[2021-04-09] MEDS: PANTOPRAZOLE 40 MG/10 ML VIAL IVP SCH (08:55)
[2021-04-09] MEDS: ENOXAPARIN 40 MG/0.4 ML SYRINGE SQ SCH (08:55)
[2021-04-09] MEDS: FUROSEMIDE 10 MG/ML 4 ML VIAL IV SCH (08:55)
[2021-04-09] MEDS: CHOLECALCIFEROL 25 MCG (1000 IU) TABLET PO SCH (08:55)
[2021-04-09] MEDS: DEXAMETHASONE SOD PHOSPHATE 10 MG/ML 1 ML VIAL IVP SCH (08:55)
[2021-04-09] MEDS: ASCORBIC ACID 500 MG TAB PO SCH (08:56)
--- NOTE | 2021-04-09 09:02 | P.PN ---
Subjective Progress Note Date: 04/09/21 65-year-old female patient presented with symptoms of shortness of breath and patient was diagnosed having COVID 19 to pneumonia. The patient symptoms started approximately 11 days prior tp admission. She also had diminished appetite, weakness, tiredness, fatigue, cough along with some shortness of dior th. The chest x-ray showed reticular and some minimal opacities in the lower lung merino bilaterally. The patient was found to be hypoxic and the patient was placed on oxygen at 3 L and the oxygen flows being titrated to maintain saturation above 90%. Subsequently she was brought up to 6 L to maintain a good oxygen saturation. During the course of her illness, the patient became progressively more hypoxic. The patient decompensated on a combination of Decadron and Baricitinib. The patient was transitioned to a BiPAP and ultimately the patient had to be intubated and placed on mechanical ventilator on 03/25/2021. She did grow MSSA in her sputum and currently she is on IV Unasyn. On today's evaluation of 04/09/2021, the patient remains on a mechanical ventilator. She is currently off paralytics and she is only on sedation with fentanyl at 2.5 mg/kg/h. She was on propofol earlier which was weaned off as part of a sedation holiday this is being performed today by the nursing staff. Meanwhile, the patient remains on a mechanical ventilator. The patient is an assist-control mode of mechanical ventilation. The patient is on a rate of 20 with a tidal volume of 375 with an FiO2 of 50% and a PEEP of 15. The peak airway pressure was 38 on today's evaluation. The chest x-ray findings are essentially stable and the patient has a good positioning of the tracheostomy tube which is a #8 Bivona tracheostomy tube. The patient has stable lower lobe but the pulmonary infiltrates which remain unchanged compared to yesterday. The patient remains on IV Unasyn as the patient has grown MSSA in his sputum. The patient is afebrile for now and the patient is hemodynamically stable and the patient is currently in the process of obtaining a sedation holiday. She is still on Decadron. She was being treated with Baricitinib in the past and currently she is off that medication. Meanwhile, the blood gases from today shows a pH of 7.45 with a pCO2 of 50 to and a pO2 of 74. She did receive diuretics yesterday the patient was given a dose of Lasix. The fluid balance over the past 24 hours has been -1.1 L and the patient has an adequate urine output. In terms of her blood work from today, the patient has a white cell count of 11.7 with a hemoglobin of 9.7. Platelet counts are stable at 544, the electrolytes are all within normal limits with a normal renal function and the BUN of 12 with a creatinine of 0.3. The LFTs are stable. LDH level is down to 712 with a CRP level of 15.3. Most recent pro-calcitonin level from yesterday was at 1.59. As mentioned, the patient remains on IV Unasyn. The patient is also on Lovenox 40 mg subcu for DVT prophylaxis. Most recent d-dimer is at 1.46. The patient is on Levemir insulin for blood sugar control. Levemir insulin is running at 10 units daily addition to 60 minutes of low-level 4 times a day and a sliding scale coverage. The patient remains on IV Protonix. IV fluids are currently at KVO. No other significant events otherwise for now. We were able to appreciate some neurologic recovery was patient off sedation. Objective - Vital Signs Vital signs: Vital Signs Temp 98.9 F 04/09/21 08:00 Pulse 82 04/09/21 08:00 Resp 20 04/09/21 08:00 BP 128/102 04/09/21 07:00 Pulse Ox 93 L 04/09/21 08:00 Intake & Output 04/08/21 04/09/21 04/09/21 18:59 06:59 18:59 Intake Total 862.942 983.933 160.71 Output Total 1965 1005 205 Balance -1102.058 -21.067 -44.29 Weight 88.5 kg 88.7 kg Intake: IV 208 246 52 Sodium Chloride 0.9% 1, 130 180 40 000 ml @ 20 mls/hr IV . Q24H [facility] Rx#:[id number] pressure bag 78 66 12 Intake, IV Titration 290.942 498.933 40.71 Amount Norepinephrine 8 mg In 38.501 Sodium Chloride 0.9% 250 ml @ 0.05 MCG/KG/MIN 8. 562 mls/hr IV .Q24H [facility] Rx#:[id number] fentaNYL (PF). 1,000 mcg 190.942 260.432 In Sodium Chloride 0.9% 80 ml @ 0.5 MCG/KG/HR 3. 515 mls/hr IV .Q24H [facility] Rx#:[id number] propofoL 1,000 mg In 100 200.000 40.71 Empty Bag 1 bag @ Titrate IV .Q0M [facility] Rx#: [id number] Tube Feeding 304 209 38 Other 60 30 30 Output: Urine 1965 1005 205 Other: Voiding Method Indwelling Catheter Indwelling Catheter # Voids 1 ABP, PAP, CO, CI - Last Documented Arterial Blood Pressure 129/54 - Exam GENERAL EXAM: Sedated and paralyzed, very pleasant 65 yo white female on assist-control mode of ventilation , currently on sedation and the patient is currently on fentanyl. Propofol is being weaned off. HEAD: Normocephalic/atraumatic. EYES: Normal reaction of pupils, equal size. Conjunctiva pink, sclera white. NOSE: Clear with pink turbinates. THROAT: No erythema or exudates. NECK: No masses, no JVD, no thyroid enlargement, no adenopathy. CHEST: No chest wall deformity. Symmetrical expansion. LUNGS: Equal air entry with basilar rales CVS: Regular rate and rhythm, normal S1 and S2, no gallops, no murmurs, no rubs ABDOMEN: Soft, nontender. No hepatosplenomegaly, normal bowel sounds, no guarding or rigidity. EXTREMITIES: No clubbing, no edema, no cyanosis, 2+ pulses and upper and lower extremities. MUSCULOSKELETAL: Muscle strength and tone normal. SPINE: No scoliosis or deformity SKIN: No rashes CENTRAL NERVOUS SYSTEM: Sedated and NOT paralyzed No focal deficits, tone is normal in all 4 extremities. - Labs CBC & Chem 7: 04/09/21 05:00 04/09/21 05:00 Labs: Abnormal Lab Results - Last 24 Hours (Table) 04/08/21 04/08/21 04/08/21 Range/Units 09:00 11:44 16:42 WBC (3.8-10.6) k/uL RBC (3.80-5.40) m/uL Hgb (11.4-16.0) gm/dL Hct (34.0-46.0) % Plt Count (150-450) k/uL Neutrophils # (1.3-7.7) k/uL ABG pCO2 (35-45) mmHg ABG pO2 (83-108) mmHg ABG HCO3 (21-25) mmol/L ABG Total CO2 (19-24) mmol/L Sodium (137-145) mmol/L Potassium (3.5-5.1) mmol/L Chloride (98-107) mmol/L Carbon Dioxide (22-30) mmol/L Creatinine (0.52-1.04) mg/dL Glucose (74-99) mg/dL POC Glucose (mg/dL) 220 H 163 H (75-99) mg/dL Calcium (8.4-10.2) mg/dL ALT (4-34) U/L Alkaline Phosphatase (38-126) U/L Lactate Dehydrogenase (313-618) U/L C-Reactive Protein (<1.0) mg/dL Total Protein (6.3-8.2) g/dL Albumin (3.5-5.0) g/dL Procalcitonin 1.59 H (0.02-0.09) ng/mL 04/08/21 04/08/21 04/09/21 Range/Units 18:05 23:04 05:00 WBC 11.7 H (3.8-10.6) k/uL RBC 3.21 L (3.80-5.40) m/uL Hgb 9.7 L (11.4-16.0) gm/dL Hct 29.6 L (34.0-46.0) % Plt Count 544 H (150-450) k/uL Neutrophils # 8.4 H (1.3-7.7) k/uL ABG pCO2 (35-45) mmHg ABG pO2 (83-108) mmHg ABG HCO3 (21-25) mmol/L ABG Total CO2 (19-24) mmol/L Sodium (137-145) mmol/L Potassium (3.5-5.1) mmol/L Chloride (98-107) mmol/L Carbon Dioxide (22-30) mmol/L Creatinine (0.52-1.04) mg/dL Glucose (74-99) mg/dL POC Glucose (mg/dL) 149 H 137 H (75-99) mg/dL Calcium (8.4-10.2) mg/dL ALT (4-34) U/L Alkaline Phosphatase (38-126) U/L Lactate Dehydrogenase (313-618) U/L C-Reactive Protein (<1.0) mg/dL Total Protein (6.3-8.2) g/dL Albumin (3.5-5.0) g/dL Procalcitonin (0.02-0.09) ng/mL 04/09/21 04/09/21 04/09/21 Range/Units 05:00 05:01 05:50 WBC (3.8-10.6) k/uL RBC (3.80-5.40) m/uL Hgb (11.4-16.0) gm/dL Hct (34.0-46.0) % Plt Count (150-450) k/uL Neutrophils # (1.3-7.7) k/uL ABG pCO2 52 H (35-45) mmHg ABG pO2 74 L (83-108) mmHg ABG HCO3 37 H (21-25) mmol/L ABG Total CO2 38 H (19-24) mmol/L Sodium 135 L (137-145) mmol/L Potassium 3.2 L (3.5-5.1) mmol/L Chloride 97 L (98-107) mmol/L Carbon Dioxide 33 H (22-30) mmol/L Creatinine 0.35 L (0.52-1.04) mg/dL Glucose 113 H (74-99) mg/dL POC Glucose (mg/dL) 112 H (75-99) mg/dL Calcium 8.0 L (8.4-10.2) mg/dL ALT 49 H (4-34) U/L Alkaline Phosphatase 130 H (38-126) U/L Lactate Dehydrogenase 712 H (313-618) U/L C-Reactive Protein 15.3 H (<1.0) mg/dL Total Protein 5.0 L (6.3-8.2) g/dL Albumin 2.1 L (3.5-5.0) g/dL Procalcitonin (0.02-0.09) ng/mL Microbiology - Last 24 Hours (Table) 04/05/21 20:42 Gram Stain - Final Sputum Sputum Culture - Final Staphylococcus aureus Assessment and Plan Plan: 1 acute bilateral COVID 19 related pneumonia. This patient is not vaccinated. The patient became symptomatic approximately 11 days ago. The patient is presenting with worsening shortness of breath and currently the patient has hypoxic respiratory failure . CT angiogram negative for pulmonary embolism. Doppler of the lower extremity was negative for DVT. The patient was treated with a combination of Baricitinib and Decadron per protocol. Intubated on 03/25/2021. Patient was outside the window for Remdesivir, due to progressive hypoxia. She was not vaccinated. She was started on Baricitinib on 03/22/2021. Transfer to the intensive care unit on 03/25/2021, and intubated on the same date. Patient received tracheostomy and PEG tube on 04/05/2021. The patient currently is on Decadron. The patient is off paralytics. The patient remains on sedation. There is some limited improvement in the blood gas. The chest x- ray still showing diffuse bilateral pulmonary infiltrates. The Bivona tracheostomy tube was in a good location. The chest x-ray was stable. The patient oxidation is stable. The patient is going MSSA in the sputum and the patient's pro calcitonin level was slightly elevated and the patient was covered with IV Unasyn. The patient is in the process of receiving a sedation holiday. She remains on Decadron. Hemodynamically stable on no pressors. Being gently diurese with IV Lasix 2 acute hypoxic respiratory failure secondary to above 3 elevated inflammatory markers including LDH, mildly elevated D dimers. Secondary to above. 4 diabetes mellitus with a component of steroid use hyperglycemia not currently on Levemir insulin 5 hypothyroidism 6 hyperlipidemia 7. Pneumomediastinum with subcutaneous emphysema, resolved 8. MSSA pneumonia, patient is covered with Unasyn Plan: On today's evaluation, I'm recommending that the wrap the PEEP down to 13 and monitor the oxygenation. I may consider further weaning down the PEEP depending on his saturation. She will be kept on FiO2 of 50%. Continue with a sedation holiday, the goal is to get rid of the fentanyl and keep low-dose propofol for now. The patient has a very labile blood pressure and heart rate. I do not think she will tolerate Precedex for now. Keep Lasix 40mg on a daily basis, IV Hemodynamically stable Continue weaning FiO2 to keep O2 sats ration sat 90% and above Continue Decadron, continue Lovenox Continue multivitamins Continue Unasyn pro-calcitonin level was still elevated at 1.59 Continue nutritional support Follow-up labs CBC, CMP, chest x-ray and blood gas tomorrow No further room for weaning on today's evaluation. Very important to assess mental status change. Continue Lovenox. Condition stable. Prognosis poor baseline above-mentioned comorbidities. Poor outcome in general. Continue care evaluation that was done and more than 30 minutes. Time with Patient: Greater than 30
--- NOTE | 2021-04-09 09:08 | XR ---
EXAMINATION TYPE: XR chest 1V portable DATE OF EXAM: 04/09/2021 COMPARISON: 04/07/2021 HISTORY: Shortness of breath TECHNIQUE: Single frontal view of the chest is obtained. FINDINGS: Tracheostomy tube and left-sided central line stable with bilateral interstitial alveolar infiltrates. No pneumothorax. Mild hyperinflation the lungs. Heart size stable. IMPRESSION: Stable bilateral infiltrates.
--- NOTE | 2021-04-09 09:59 | P.PN ---
Subjective Progress Note Date: 04/09/21 This is 65-year-old female with past medical history of diabetes mellitus, hyperlipidemia, hypertension, osteoarthritis, no smoking history presented to the ER with worsening dyspnea 10 days accompanied by loss of appetite, fatigue, cough. Denies fevers or sweats. Denies muscle aches. On admission patient was febrile with temperature 99.1, WBC 5.2, tachycardic, cachectic, maintaining O2 sats of 88% on room air. Patient's respiratory status has further worsened and currently maintaining O2 sats of mid 90s on 3 L nasal cannula. Displays exertional dyspnea after ambulating from [place]. Coronavirus PCR positive. D-dimer 0.39, LDH 1108, CRP 18.6. Chest x-ray reporting reticular and some minimal patc hy opacity's over bilateral lower lungs, left greater than right. Hemoglobin 14.5, platelets 287. Sodium currently 132, potassium 5, BUN 27, creatinine 0.77. A.m. Accu-Chek currently being obtained, the blood sugar 231 last night. Denies chest pain, palpitations. 03/20/2021 continues on covid cocktail .oxygen requirements worsened, currently requiring 10 L high flow nasal cannula to maintain O2 sats in the high 80s to low 90s. Reports had coughing spells last night but no cough this morning .exertional shortness of breath .Denies chest pain, palpitations. Afebrile. Ambulatory markers improving with the exception of mild increase in d- dimer.Calcitonin minimally elevated, 0.12. BMP pending. Blood sugars better improving. 03/21/21 maintaining O2 sats in the low 90s on 2 L nasal cannula. Reports minimal nonproductive cough, exertional shortness of breath, loose stools. Blood sugars controlled .Denies chest pain, palpitations. Denies diaphoresis. Afebrile. 03/22/2021 O2 requirements worsened, currently requiring 15 L high flow. Anxious. Current the afebrile, T-max 99.8, labs pending. Yesterday consuming 50-75% of diet. This morning some hypoglycemia, currently 85. Hemoglobin A1c 6.5 03/25/2021 respiratory status worsened .BiPAP at 100%, maintaining O2 sats of m id 80s, transferred to ICU. Anxious. Precedex initiated. Labs pending. 03/26/21 remains vent dependent with FiO2 70/+14 of PEEP. Maintained on diprovan, fentanyl and Pneumovax. Afebrile, normal WBC. Chest x-ray reporting diffuse interstitial pattern of bilateral infiltrates and pleural effusion. 03/27/2021 remains vent dependent, FiO2 60%/+16 of PEEP. Chest x-ray reporting diffuse pleural-parenchymal changes.Maintained on Nimbex, Levophed, fentanyl, diprovan. Continues on covid cocktail. 03/28/2021 FiO2 50%/+16 of PEEP. Chest x-ray reporting extensive subcutaneous emphysema with no change in bibasilar opacities. Levophed weaned off. Maintained on diprovan, Nimbex, fentanyl drips. Covid cocktail. Afebrile, T-max 99.9, WBC 11.8. BUN 36, creatinine 0.58. Blood sugars in the 200s. 03/29/2021 FiO2 50%/+16 of PEEP. Maintained on Levophed ,Nimbex and fentanyl drips. Chest x-ray reporting continued bilateral infiltrates, worsening subcutaneous emphysema. 3 catheters placed in left anterior chest wall right and left supraclavicular areas for decompression.Afebrile, T-max 99.4. 04/01/2021 vent dependent,FIO2 55%/+12 Peep. Maintained on Nimbex, Levophed diprovan and fentanyl drips. Chest x-ray reporting continued bilateral peripheral basilar Covid pneumonia without significant change, improving bilateral subcutaneous emphysema. Afebrile, T-max 99.1, WBC 12.5, Sputum reporting MSSA Evaluated by cardiology, echo ordered and pending. 04/02/2021 FiO2 50%/+15 of PEEP. Chest x-ray reporting bilateral airspace disease consistent with Covid pneumonia, improving subcutaneous emphysema. Maintained on diprovan, fentanyl, Nimbex. Levophed off and on throughout the night, currently off. Echo pending. Currently afebrile, T-max 99.1, WBC 12.2. D-dimer decreased to 1.1, LDH and CRP increased. 04/03/2021 FiO2 50/+15 of PEEP. Chest x-ray reporting similar bilateral airspace disease with subcutaneous emphysema. Maintained on Nimbex, fentanyl and diprovan. Echo reporting hyperdynamic systolic function, EF greater than 70% moderate pulmonary hypertension. 04/04/2021 remains vent dependent, FiO2 50%/PEEP of 15. Continues on Unasyn for MSSA-sputum, cold faded cocktail. Chest x-ray reporting persistent with slight improving peripheral and basilar Covid pneumonia. Maintained on Nimbex, fentanyl, diprovan. Weaning of paralytics in progress .Sinus rhythm. Sodium 133, Potassium 3.4. Inflammatory markers trending down with the exception of [id number] increased. Blood sugars controlled. 04/05/2021 FiO2 60%/+15 of PEEP; staff reports FiO2 bumped up during the night as patient had desatted. Chest x-ray reporting slight improvement but pe rsistent peripheral basilar airspace opacities. ABGs noted, reporting pO2 of 96. Maintained on diprovan, fentanyl, Nimbex, with norepinephrine resumed. Telemetry sinus rhythm. Scheduled for trach and peg today, tube feeds on hold. Continues on Unasyn, covid cocktail. Afebrile, T-max 101, WBC increased to 16.9 sputum, blood and urine cultures ordered. Inflammatory markers increased. 04/08/2021 FiO2 50%/+15 of PEEP maintained on fentanyl and diprovan drips.Nimbex weaned off yesterday. Remains off of pressors 24 hours. Telemetry sinus rhythm. Tolerating tube feeds at goal with minimal to no residuals. Continues on Unasyn, T-max 99, repeat sputum culture in progress. 04/09/2021 vent settings remain at FiO2 50%/+15 of PEEP. Maintained on diprovan-weaning off. Repeat sputum culture reported MSSA ,continues on Unasyn .Good chest x-ray reporting stable bilateral infiltrates. KUB afebrile, T-max 99.2, WBC 11.7. Potassium 3.2, receiving supplementation. Renal function stable. Inflammatory markers/LDH,CRP trending down. Tube feeds at goal, tolerating with minimal to no residuals, blood sugars controlled. Labile bloodpressures/heart rates. Objective - Vital Signs Vital signs: Vital Signs Temp 98.9 F 04/09/21 08:00 Pulse 82 04/09/21 08:00 Resp 20 04/09/21 08:00 BP 128/102 04/09/21 07:00 Pulse Ox 93 L 04/09/21 08:00 Intake & Output 04/08/21 04/09/21 04/09/21 18:59 06:59 18:59 Intake Total 862.942 983.933 220.179 Output Total 1965 1005 205 Balance -1102.058 -21.067 15.179 Weight 88.5 kg 88.7 kg Intake: IV 208 246 52 Sodium Chloride 0.9% 1, 130 180 40 000 ml @ 20 mls/hr IV . Q24H [facility] Rx#:[id number] pressure bag 78 66 12 Intake, IV Titration 290.942 498.933 100.179 Amount Norepinephrine 8 mg In 38.501 Sodium Chloride 0.9% 250 ml @ 0.05 MCG/KG/MIN 8. 562 mls/hr IV .Q24H [facility] Rx#:[id number] fentaNYL (PF). 1,000 mcg 190.942 260.432 59.469 In Sodium Chloride 0.9% 80 ml @ 0.5 MCG/KG/HR 3. 515 mls/hr IV .Q24H [facility] Rx#:[id number] propofoL 1,000 mg In 100 200.000 40.71 Empty Bag 1 bag @ Titrate IV .Q0M [facility] Rx#: [id number] Tube Feeding 304 209 38 Other 60 30 30 Output: Urine 1965 1005 205 Other: Voiding Method Indwelling Catheter Indwelling Catheter # Voids 1 ABP, PAP, CO, CI - Last Documented Arterial Blood Pressure 129/54 - Exam Limited PHYSICAL EXAM on a intubated covid patient: VITAL SIGNS: As above GENERAL: Maintained on mechanical ventilator, sedated. CARDIOVASCULAR: S1, S2 regular. Telemetry sinus rhythm ABD: Nondistended NERVOUS SYSTEM: Unable to evaluate, patient sedated. - Labs CBC & Chem 7: 04/09/21 05:00 04/09/21 05:00 Labs: Abnormal Lab Results - Last 24 Hours (Table) 04/08/21 04/08/21 04/08/21 Range/Units 09:00 11:44 16:42 WBC (3.8-10.6) k/uL RBC (3.80-5.40) m/uL Hgb (11.4-16.0) gm/dL Hct (34.0-46.0) % Plt Count (150-450) k/uL Neutrophils # (1.3-7.7) k/uL ABG pCO2 (35-45) mmHg ABG pO2 (83-108) mmHg ABG HCO3 (21-25) mmol/L ABG Total CO2 (19-24) mmol/L Sodium (137-145) mmol/L Potassium (3.5-5.1) mmol/L Chloride (98-107) mmol/L Carbon Dioxide (22-30) mmol/L Creatinine (0.52-1.04) mg/dL Glucose (74-99) mg/dL POC Glucose (mg/dL) 220 H 163 H (75-99) mg/dL Calcium (8.4-10.2) mg/dL ALT (4-34) U/L Alkaline Phosphatase (38-126) U/L Lactate Dehydrogenase (313-618) U/L C-Reactive Protein (<1.0) mg/dL Total Protein (6.3-8.2) g/dL Albumin (3.5-5.0) g/dL Procalcitonin 1.59 H (0.02-0.09) ng/mL 04/08/21 04/08/21 04/09/21 Range/Units 18:05 23:04 05:00 WBC 11.7 H (3.8-10.6) k/uL RBC 3.21 L (3.80-5.40) m/uL Hgb 9.7 L (11.4-16.0) gm/dL Hct 29.6 L (34.0-46.0) % Plt Count 544 H (150-450) k/uL Neutrophils # 8.4 H (1.3-7.7) k/uL ABG pCO2 (35-45) mmHg ABG pO2 (83-108) mmHg ABG HCO3 (21-25) mmol/L ABG Total CO2 (19-24) mmol/L Sodium (137-145) mmol/L Potassium (3.5-5.1) mmol/L Chloride (98-107) mmol/L Carbon Dioxide (22-30) mmol/L Creatinine (0.52-1.04) mg/dL Glucose (74-99) mg/dL POC Glucose (mg/dL) 149 H 137 H (75-99) mg/dL Calcium (8.4-10.2) mg/dL ALT (4-34) U/L Alkaline Phosphatase (38-126) U/L Lactate Dehydrogenase (313-618) U/L C-Reactive Protein (<1.0) mg/dL Total Protein (6.3-8.2) g/dL Albumin (3.5-5.0) g/dL Procalcitonin (0.02-0.09) ng/mL 04/09/21 04/09/21 04/09/21 Range/Units 05:00 05:01 05:50 WBC (3.8-10.6) k/uL RBC (3.80-5.40) m/uL Hgb (11.4-16.0) gm/dL Hct (34.0-46.0) % Plt Count (150-450) k/uL Neutrophils # (1.3-7.7) k/uL ABG pCO2 52 H (35-45) mmHg ABG pO2 74 L (83-108) mmHg ABG HCO3 37 H (21-25) mmol/L ABG Total CO2 38 H (19-24) mmol/L Sodium 135 L (137-145) mmol/L Potassium 3.2 L (3.5-5.1) mmol/L Chloride 97 L (98-107) mmol/L Carbon Dioxide 33 H (22-30) mmol/L Creatinine 0.35 L (0.52-1.04) mg/dL Glucose 113 H (74-99) mg/dL POC Glucose (mg/dL) 112 H (75-99) mg/dL Calcium 8.0 L (8.4-10.2) mg/dL ALT 49 H (4-34) U/L Alkaline Phosphatase 130 H (38-126) U/L Lactate Dehydrogenase 712 H (313-618) U/L C-Reactive Protein 15.3 H (<1.0) mg/dL Total Protein 5.0 L (6.3-8.2) g/dL Albumin 2.1 L (3.5-5.0) g/dL Procalcitonin (0.02-0.09) ng/mL Microbiology - Last 24 Hours (Table) 04/05/21 20:42 Gram Stain - Final Sputum Sputum Culture - Final Staphylococcus aureus Assessment and Plan Assessment: Acute COVID-19 pneumonia with underlying MSSA pneumonia-on Unasyn Acute hypoxic respiratory failure secondary to the above, mechanical vent dependent. Status post trach and PEG tube placement. Subcutaneous emphysema and pneumomediastinum secondary to Covid., Status post 3 decompression catheters, resolved. Hyponatremia, mild, resolved Diabetes mellitus, hyperglycemic hemoglobin A1c 6.5, in addition to steroid contribution Hypothyroidism Hyperlipidemia Plan: Continue on current medication regime ,monitoring and symptomatic treatment. Covid cocktail. ICU management as per shorthand teacher.Prognosis guarded given multiple complex medical issues. The impression and plan of care has been dictated as directed. : I performed a history and examination of this patient, discussed the same with the dictator. I agree with the dictator's note ,documented as a scribe. Any additional findings or plans will be noted.
--- NOTE | 2021-04-09 10:48 | P.PN ---
<Emilia Marquez - Last Filed: 04/09/21 10:46> Subjective Progress Note Date: 04/09/21 CHIEF COMPLAINT: COVID-19 pneumonia HISTORY OF PRESENT ILLNESS: Patient is in the ICU and on mechanical ventilation. She is status post tracheostomy and PEG tube placement. She is tolerating her tube feeds and they are at goal at 19 ml/hr. Afebrile WBC 11.7 Hgb 9.7 PHYSICAL EXAM: VITAL SIGNS: Reviewed. GENERAL: Well-developed in no acute distress. HEENT: Moist buccal mucosa. Head is atraumatic, normocephalic. Tracheostomy site clean dry and intact ABDOMEN: Soft. Nondistended. PEG tube site clean dry and intact NEUROLOGIC: On mechanical ventilation and sedated ASSESSMENT: 1. Acute hypoxic respiratory failure secondary to COVID-19 pneumonia. Status post tracheostomy placement 2. Severe protein calorie malnutrition status post PEG tube placement PLAN: -Continue tube feedings -Continue ICU management -Continue supportive care Physician Teletypesetter Monitor note has been reviewed by physician. Signing provider agrees with the documented findings, assessment, and plan of care. Objective - Vital Signs Vital signs: Vital Signs Temp 98.9 F 04/09/21 08:00 Pulse 79 04/09/21 10:00 Resp 21 04/09/21 10:00 BP 130/86 04/09/21 10:00 Pulse Ox 94 L 04/09/21 10:00 Intake & Output 04/08/21 04/09/21 04/09/21 18:59 06:59 18:59 Intake Total 862.942 983.933 431.064 Output Total 1965 1005 705 Balance -1102.058 -21.067 -273.936 Weight 88.5 kg 88.7 kg Intake: IV 208 246 104 Sodium Chloride 0.9% 1, 130 180 80 000 ml @ 20 mls/hr IV . Q24H [facility] Rx#:[id number] pressure bag 78 66 24 Intake, IV Titration 290.942 498.933 131.064 Amount Norepinephrine 8 mg In 38.501 Sodium Chloride 0.9% 250 ml @ 0.05 MCG/KG/MIN 8. 562 mls/hr IV .Q24H [facility] Rx#:[id number] fentaNYL (PF). 1,000 mcg 190.942 260.432 59.469 In Sodium Chloride 0.9% 80 ml @ 0.5 MCG/KG/HR 3. 515 mls/hr IV .Q24H [facility] Rx#:[id number] propofoL 1,000 mg In 100 200.000 71.595 Empty Bag 1 bag @ Titrate IV .Q0M [facility] Rx#: [id number] Tube Feeding 304 209 76 Other 60 30 120 Output: Urine 1965 1005 705 Other: Voiding Method Indwelling Catheter Indwelling Catheter Indwelling Catheter # Voids 1 ABP, PAP, CO, CI - Last Documented Arterial Blood Pressure 115/55 - Labs CBC & Chem 7: 04/09/21 05:00 04/09/21 05:00 Labs: Abnormal Lab Results - Last 24 Hours (Table) 04/08/21 04/08/21 04/08/21 Range/Units 09:00 11:44 16:42 WBC (3.8-10.6) k/uL RBC (3.80-5.40) m/uL Hgb (11.4-16.0) gm/dL Hct (34.0-46.0) % Plt Count (150-450) k/uL Neutrophils # (1.3-7.7) k/uL ABG pCO2 (35-45) mmHg ABG pO2 (83-108) mmHg ABG HCO3 (21-25) mmol/L ABG Total CO2 (19-24) mmol/L Sodium (137-145) mmol/L Potassium (3.5-5.1) mmol/L Chloride (98-107) mmol/L Carbon Dioxide (22-30) mmol/L Creatinine (0.52-1.04) mg/dL Glucose (74-99) mg/dL POC Glucose (mg/dL) 220 H 163 H (75-99) mg/dL Calcium (8.4-10.2) mg/dL ALT (4-34) U/L Alkaline Phosphatase (38-126) U/L Lactate Dehydrogenase (313-618) U/L C-Reactive Protein (<1.0) mg/dL Total Protein (6.3-8.2) g/dL Albumin (3.5-5.0) g/dL Procalcitonin 1.59 H (0.02-0.09) ng/mL 04/08/21 04/08/21 04/09/21 Range/Units 18:05 23:04 05:00 WBC 11.7 H (3.8-10.6) k/uL RBC 3.21 L (3.80-5.40) m/uL Hgb 9.7 L (11.4-16.0) gm/dL Hct 29.6 L (34.0-46.0) % Plt Count 544 H (150-450) k/uL Neutrophils # 8.4 H (1.3-7.7) k/uL ABG pCO2 (35-45) mmHg ABG pO2 (83-108) mmHg ABG HCO3 (21-25) mmol/L ABG Total CO2 (19-24) mmol/L Sodium (137-145) mmol/L Potassium (3.5-5.1) mmol/L Chloride (98-107) mmol/L Carbon Dioxide (22-30) mmol/L Creatinine (0.52-1.04) mg/dL Glucose (74-99) mg/dL POC Glucose (mg/dL) 149 H 137 H (75-99) mg/dL Calcium (8.4-10.2) mg/dL ALT (4-34) U/L Alkaline Phosphatase (38-126) U/L Lactate Dehydrogenase (313-618) U/L C-Reactive Protein (<1.0) mg/dL Total Protein (6.3-8.2) g/dL Albumin (3.5-5.0) g/dL Procalcitonin (0.02-0.09) ng/mL 04/09/21 04/09/21 04/09/21 Range/Units 05:00 05:01 05:50 WBC (3.8-10.6) k/uL RBC (3.80-5.40) m/uL Hgb (11.4-16.0) gm/dL Hct (34.0-46.0) % Plt Count (150-450) k/uL Neutrophils # (1.3-7.7) k/uL ABG pCO2 52 H (35-45) mmHg ABG pO2 74 L (83-108) mmHg ABG HCO3 37 H (21-25) mmol/L ABG Total CO2 38 H (19-24) mmol/L Sodium 135 L (137-145) mmol/L Potassium 3.2 L (3.5-5.1) mmol/L Chloride 97 L (98-107) mmol/L Carbon Dioxide 33 H (22-30) mmol/L Creatinine 0.35 L (0.52-1.04) mg/dL Glucose 113 H (74-99) mg/dL POC Glucose (mg/dL) 112 H (75-99) mg/dL Calcium 8.0 L (8.4-10.2) mg/dL ALT 49 H (4-34) U/L Alkaline Phosphatase 130 H (38-126) U/L Lactate Dehydrogenase 712 H (313-618) U/L C-Reactive Protein 15.3 H (<1.0) mg/dL Total Protein 5.0 L (6.3-8.2) g/dL Albumin 2.1 L (3.5-5.0) g/dL Procalcitonin (0.02-0.09) ng/mL Microbiology - Last 24 Hours (Table) 04/05/21 20:42 Gram Stain - Final Sputum Sputum Culture - Final Staphylococcus aureus <Felipe Olson - Last Filed: 04/09/21 15:38> Subjective As above. Patient remains stable on the ventilator. Tolerating tube feeds. Bolster loose and slightly. Will see again on 04/11. Please call if needed in the interim. Objective - Vital Signs Vital signs: Vital Signs Temp 98.7 F 04/09/21 12:00 Pulse 48 L 04/09/21 15:00 Resp 20 04/09/21 15:00 BP 108/56 04/09/21 15:00 Pulse Ox 99 04/09/21 15:00 Intake & Output 04/08/21 04/09/21 04/09/21 18:59 06:59 18:59 Intake Total 862.942 983.933 941.867 Output Total 1965 1005 8865 Balance -1102.058 -21.067 -1673.133 Weight 88.5 kg 88.7 kg Intake: IV 208 246 334 Ampicillin-Sulbactam 1.5 100 gm In Sodium Chloride 0.9 % 50 ml @ 100 mls/hr IVPB Q6HR [facility] Rx#:[id number] Sodium Chloride 0.9% 1, 130 180 180 000 ml @ 20 mls/hr IV . Q24H [facility] Rx#:[id number] pressure bag 78 66 54 Intake, IV Titration 290.942 498.933 206.867 Amount Norepinephrine 8 mg In 38.501 5.709 Sodium Chloride 0.9% 250 ml @ 0.05 MCG/KG/MIN 8. 562 mls/hr IV .Q24H [facility] Rx#:[id number] fentaNYL (PF). 1,000 mcg 190.942 260.432 59.469 In Sodium Chloride 0.9% 80 ml @ 0.5 MCG/KG/HR 3. 515 mls/hr IV .Q24H [facility] Rx#:[id number] propofoL 1,000 mg In 100 200.000 141.689 Empty Bag 1 bag @ Titrate IV .Q0M [facility] Rx#: [id number] Tube Feeding 304 209 171 Other 60 30 230 Output: Urine 1965 1005 2615 Other: Voiding Method Indwelling Catheter Indwelling Catheter Indwelling Catheter # Voids 1 ABP, PAP, CO, CI - Last Documented Arterial Blood Pressure 100/44 - Labs CBC & Chem 7: 04/09/21 05:00 04/09/21 11:50 Labs: Abnormal Lab Results - Last 24 Hours (Table) 04/08/21 04/08/21 04/08/21 Range/Units 09:00 16:42 18:05 WBC (3.8-10.6) k/uL RBC (3.80-5.40) m/uL Hgb (11.4-16.0) gm/dL Hct (34.0-46.0) % Plt Count (150-450) k/uL Neutrophils # (1.3-7.7) k/uL ABG pCO2 (35-45) mmHg ABG pO2 (83-108) mmHg ABG HCO3 (21-25) mmol/L ABG Total CO2 (19-24) mmol/L Sodium (137-145) mmol/L Potassium (3.5-5.1) mmol/L Chloride (98-107) mmol/L Carbon Dioxide (22-30) mmol/L Creatinine (0.52-1.04) mg/dL Glucose (74-99) mg/dL POC Glucose (mg/dL) 163 H 149 H (75-99) mg/dL Calcium (8.4-10.2) mg/dL ALT (4-34) U/L Alkaline Phosphatase (38-126) U/L Lactate Dehydrogenase (313-618) U/L C-Reactive Protein (<1.0) mg/dL Total Protein (6.3-8.2) g/dL Albumin (3.5-5.0) g/dL Procalcitonin 1.59 H (0.02-0.09) ng/mL 04/08/21 04/09/21 04/09/21 Range/Units 23:04 05:00 05:00 WBC 11.7 H (3.8-10.6) k/uL RBC 3.21 L (3.80-5.40) m/uL Hgb 9.7 L (11.4-16.0) gm/dL Hct 29.6 L (34.0-46.0) % Plt Count 544 H (150-450) k/uL Neutrophils # 8.4 H (1.3-7.7) k/uL ABG pCO2 (35-45) mmHg ABG pO2 (83-108) mmHg ABG HCO3 (21-25) mmol/L ABG Total CO2 (19-24) mmol/L Sodium 135 L (137-145) mmol/L Potassium 3.2 L (3.5-5.1) mmol/L Chloride 97 L (98-107) mmol/L Carbon Dioxide 33 H (22-30) mmol/L Creatinine 0.35 L (0.52-1.04) mg/dL Glucose 113 H (74-99) mg/dL POC Glucose (mg/dL) 137 H (75-99) mg/dL Calcium 8.0 L (8.4-10.2) mg/dL ALT 49 H (4-34) U/L Alkaline Phosphatase 130 H (38-126) U/L Lactate Dehydrogenase 712 H (313-618) U/L C-Reactive Protein 15.3 H (<1.0) mg/dL Total Protein 5.0 L (6.3-8.2) g/dL Albumin 2.1 L (3.5-5.0) g/dL Procalcitonin (0.02-0.09) ng/mL 04/09/21 04/09/21 04/09/21 Range/Units 05:01 05:50 11:52 WBC (3.8-10.6) k/uL RBC (3.80-5.40) m/uL Hgb (11.4-16.0) gm/dL Hct (34.0-46.0) % Plt Count (150-450) k/uL Neutrophils # (1.3-7.7) k/uL ABG pCO2 52 H (35-45) mmHg ABG pO2 74 L (83-108) mmHg ABG HCO3 37 H (21-25) mmol/L ABG Total CO2 38 H (19-24) mmol/L Sodium (137-145) mmol/L Potassium (3.5-5.1) mmol/L Chloride (98-107) mmol/L Carbon Dioxide (22-30) mmol/L Creatinine (0.52-1.04) mg/dL Glucose (74-99) mg/dL POC Glucose (mg/dL) 112 H 149 H (75-99) mg/dL Calcium (8.4-10.2) mg/dL ALT (4-34) U/L Alkaline Phosphatase (38-126) U/L Lactate Dehydrogenase (313-618) U/L C-Reactive Protein (<1.0) mg/dL Total Protein (6.3-8.2) g/dL Albumin (3.5-5.0) g/dL Procalcitonin (0.02-0.09) ng/mL
[2021-04-09 11:54] LABS: Glucose,Whole Blood 149 mg/dL (75-99)
[2021-04-09] MEDS ORDERED: Potassium Replacement Protocol 1 EACH MISC MISCELLANE PRN (12:26)
[2021-04-09] MEDS ORDERED: POTASSIUM BICARBONATE/CIT AC 20 MEQ TABLET.EFF NG-TUBE SCH (13:00)
[2021-04-09 17:26] LABS: Glucose,Whole Blood 163 mg/dL (75-99)
[2021-04-09] MEDS: ATORVASTATIN 40 MG TAB PO SCH (20:06)
[2021-04-09] MEDS: lisinopriL 10 MG TAB PO SCH (20:06)
[2021-04-09 23:15] LABS: Glucose,Whole Blood 116 mg/dL (75-99)
[2021-04-10] MEDS: fentaNYL (PF). 1,000 MCG in SODIUM CHLORIDE 0.9% 80 ML IV SCH ×2 (00:33→07:13)
[2021-04-10] MEDS: SODIUM CHLORIDE 0.9% 1,000 ML IV SCH ×2 (03:45→23:40)
[2021-04-10 05:10] LABS: Glucose,Whole Blood 131 mg/dL (75-99)
[2021-04-10 05:14] LABS: Basophils % (A) 0 %; Eosinophils # (A) 0.4 k/uL (0-0.7); Eosinophils % (A) 4 %; HCT 29.4 % (34.0-46.0); HGB 9.6 gm/dL (11.4-16.0); Lymphocytes # (A) 1.9 k/uL (1.0-4.8); Lymphocytes % (A) 19 %; MCH 30.4 pg (25.0-35.0); MCHC 32.7 g/dL (31.0-37.0); Monocytes # (A) 0.6 k/uL (0-1.0); Monocytes % (A) 6 %; Neutrophils # (A) 7.3 k/uL (1.3-7.7); Neutrophils % (A) 70 %; Platelet Count 545 k/uL (150-450); RBC 3.16 m/uL (3.80-5.40); RDW 14.5 % (11.5-15.5); WBC 10.4 k/uL (3.8-10.6)
[2021-04-10 05:26] LABS: ALT 37 U/L (4-34); AST 24 U/L (14-36); African American GFR (CKD) >90 (>60 ml/min/1.73 sqM); Alkaline Phosphatase 124 U/L (38-126); Anion Gap 4 mmol/L; Blood Urea Nitrogen 12 mg/dL (7-17); C Reactive Protein 7.4 mg/dL (<1.0); Calcium 8.1 mg/dL (8.4-10.2); Carbon Dioxide 34 mmol/L (22-30); Chloride 96 mmol/L (98-107); Glucose 141 mg/dL (74-99); LDH 652 U/L (313-618); Non-African American GFR(CKD) >90 (>60 ml/min/1.73 sqM); Potassium 3.7 mmol/L (3.5-5.1); Sodium 134 mmol/L (137-145); Total Bilirubin 0.2 mg/dL (0.2-1.3); Total Protein 4.9 g/dL (6.3-8.2)
[2021-04-10] MEDS: INSULIN ASPART (NovoLOG) 100 UNIT/ML VIAL SQ SCH ×4 (05:26→23:39)
[2021-04-10] MEDS: AMPICILLIN-SULBACTAM 1.5 GM in SODIUM CHLORIDE 0.9% 50 ML IVPB SCH ×4 (05:27→23:39)
[2021-04-10 05:53] LABS: ABG Base Excess 10.5 mmol/L; ABG HCO3 36 mmol/L (21-25); ABG Oxygen Saturation 95.9 % (94-97); ABG PCO2 53 mmHg (35-45); ABG PH 7.45 (7.35-7.45); ABG PO2 75 mmHg (83-108); Allen Test Performed? Yes
[2021-04-10] MEDS ORDERED: POTASSIUM BICARB-CITRIC ACID 25 MEQ TABLET.EFF PO SCH (06:00)
[2021-04-10] MEDS: LEVOTHYROXINE 75 MCG TAB PO SCH (06:41)
[2021-04-10] MEDS: INSULIN DETEMIR (LEVEMIR) 100 UNIT/ML SYR SQ SCH (06:41)
[2021-04-10] MEDS: ALBUTEROL HFA INHALER INHALATION SCH ×4 (08:16→20:36)
[2021-04-10] MEDS: CHLORHEXIDINE GLUCONATE 15 ML CUP MUCOUS MEM SCH ×2 (08:23→20:44)
[2021-04-10] MEDS: ENOXAPARIN 40 MG/0.4 ML SYRINGE SQ SCH (08:23)
[2021-04-10] MEDS: FUROSEMIDE 10 MG/ML 4 ML VIAL IV SCH ×2 (08:23→20:45)
[2021-04-10] MEDS: PANTOPRAZOLE 40 MG/10 ML VIAL IVP SCH (08:23)
[2021-04-10] MEDS: DEXAMETHASONE SOD PHOSPHATE 10 MG/ML 1 ML VIAL IVP SCH (08:23)
[2021-04-10] MEDS: ZINC SULFATE 220 MG CAP PO SCH (08:24)
[2021-04-10] MEDS: ASCORBIC ACID 500 MG TAB PO SCH (08:24)
[2021-04-10] MEDS: CHOLECALCIFEROL 25 MCG (1000 IU) TABLET PO SCH (08:24)
--- NOTE | 2021-04-10 08:25 | P.PN ---
<Jessica Leigh M - Last Filed: 04/10/21 08:18> Subjective Progress Note Date: 04/10/21 On 04/07/2021 patient seen in follow-up in the intensive care unit. Patient was transferred to the intensive care unit on 03/25/2021 and was intubated on the same date. She received tracheostomy tube and PEG tube on 04/05/2021, today she remains sedated, paralyzed and on assist-control mode of ventilation with a rate of 26, tidal volume of 375, FiO2 of 50% and PEEP of 15. This morning's blood gas shows pO2 of 53, pCO2 of 37, and pH of 7.57 this was done on FiO2 of 40%, and subsequently FiO2 has been increased to 50%. Her rate will be dropped down to 20 breaths per minute. Her peak pressure is 30, plateau pressure is 32. Patient is currently on 0.9 normal saline to 20 ML per hour, Diprivan is a 60 mics per kilo per minute, Nimbex is at 3 mics per kilo per minute, fentanyl is at 2.5 mics per kilo per minute, and she is on tube feedings with vital AF 19 with a goal of 19 and standard water flushes. She is hemodynamically stable, not requiring any vasopressor support, she is in sinus mechanism with a rate of 73 BPM. She does have a small leak around her tracheostomy, and she is losing about 20 mL of volume but nonetheless she is non-hypercapnic and this is not affecting her ventilation. Her chest x-ray today shows scattered small partially consolidative opacities in the mid lower lung zones. No pneumothorax or large pleural effusion. The respiratory has been reviewed showing white blood cell count of 8.3, hemoglobin of 9.7, d-dimer is 1.46, sodium is 134, potassium is 3.8, chloride is 99, CO2 33, BUN of 13 creatinine 0.38. Her liver enzymes continued to improve on today's labs, AST is 47, ALT is 72, and alkaline phosphatase is 158, LDH is improving and is down to 716, CRP is also trending down and is down to 20.6. Her last pro-calcitonin level from 04/05/2021 Was still elevated at 4.31. Her sputum from 03/28/2021 showed MSSA, repeat sputum was sent on 04/05/2021 and showing rare PMNs, and few gram-positive cocci in clusters. She remains on Unasyn for antibiotic coverage. She also remains on Decadron 6 mg daily, she is on prophylactic Lovenox. Her d-dimer today is 1.46, and is improving. She's had no acute events overnight. Tolerating her tube feedings. She has had no fever or chills, urine output is adequate in the order of 35 ML per hour. On 04/10/2021 patient seen in follow-up in the intensive care unit, she remains sedated, she has received a tracheostomy, she is connected to the ventilator on assist control mode of ventilation with a rate of 20, tidal volume is 375, FiO2 of 50% and PEEP of 10, this morning's blood gas shows pO2 of 75, pCO2 53, and pH is 7.45 and this was done on the above-mentioned vent settings, she is currently on 0.9 normal saline at a rate 20 ML per hour, Diprivan is a 55 mics per kilo per minute, and fentanyl infusion is a 2 mics per kilo per minute, she is tolerating tube feedings with vital HP at a rate of 19 with a goal of 19. Hemo dynamically stable, not requiring any vasopressor support, she is in sinus rhythm with a rate of 105, slightly tachycardic, no fevers overnight, vital signs have been stable. Her peak airway pressure is 29 on the ventilator, and plateau pressure is 24, she has been getting daily dose of IV Lasix 40 mg daily, she is in -1.3 L net fluid balance over the last 24 hours. Her chest x-ray today has been reviewed showing stable bilateral interstitial alveolar infiltrates. No pneumothorax. He remains on Unasyn for evidence of emesis today in the sputum cultures. Her last sputum culture from 04/05/2021 showed MSSA. Her last pro-calcitonin from 04/08/2021 was improving from the original value, and was down to 1.59. Prevacid her labs have been reviewed, with blood cell count was 10.4, hemoglobin is 9.6, platelet count is 545, serum sodium is 134, potassium 3.7, chloride is 96, CO2 is 34, BUN is 12 creatinine 0.45, her LDH is improving and is down to 652 CRP is down to 7.4 on today's labs. Her last d-dimer from 04/07/2021 was 1.46, patient is on prophylactic dose Lovenox 40 mg daily, she remains on Decadron 6 mg daily. Lung sounds reveal coarse breath sounds, generally she remains edematous. Overall she remains an significantly positive fluid balance since admission. Very minimal secretions suctioned from her tracheostomy. Neurologically patient follows simple commands, she attempts to open her eyes this morning even on sedation, we will attempt another sedation holiday today. Objective - Vital Signs Vital signs: Vital Signs Temp 99.6 F 04/10/21 04:00 Pulse 71 04/10/21 06:00 Resp 20 04/10/21 06:00 BP 134/55 04/10/21 06:00 Pulse Ox 96 04/10/21 06:00 Intake & Output 04/09/21 04/10/21 04/10/21 18:59 06:59 18:59 Intake Total 1309.443 883.012 234.774 Output Total 2995 555 35 Balance -1685.557 328.012 199.774 Weight 87.1 kg Intake: IV 488 280 23 Ampicillin-Sulbactam 1.5 150 50 gm In Sodium Chloride 0.9 % 50 ml @ 100 mls/hr IVPB Q6HR [facility] Rx#:[id number] Sodium Chloride 0.9% 1, 260 200 20 000 ml @ 20 mls/hr IV . Q24H [facility] Rx#:[id number] pressure bag 78 30 3 Intake, IV Titration 314.443 334.012 192.774 Amount Norepinephrine 8 mg In 14.443 3.368 Sodium Chloride 0.9% 250 ml @ 0.05 MCG/KG/MIN 8. 562 mls/hr IV .Q24H [facility] Rx#:[id number] fentaNYL (PF). 1,000 mcg 100.000 86.241 93.74 In Sodium Chloride 0.9% 80 ml @ 0.5 MCG/KG/HR 3. 515 mls/hr IV .Q24H [facility] Rx#:[id number] propofoL 1,000 mg In 200.000 244.403 99.034 Empty Bag 1 bag @ Titrate IV .Q0M [facility] Rx#: [id number] Tube Feeding 247 209 19 Other 260 60 Output: Urine 2995 555 35 Other: Voiding Method Indwelling Catheter Indwelling Catheter # Voids 1 ABP, PAP, CO, CI - Last Documented Arterial Blood Pressure 120/51 - Exam GENERAL EXAM: Sedated, but opens eyes to voice very pleasant 65 yo white female on assist-control mode of ventilation with a rate of 20, tidal volume is 375 FiO2 50% and PEEP of 10 HEAD: Normocephalic/atraumatic. EYES: Normal reaction of pupils, equal size. Conjunctiva pink, sclera white. NOSE: Clear with pink turbinates. THROAT: No erythema or exudates. NECK: No masses, no JVD, no thyroid enlargement, no adenopathy. Midline tracheostomy, #8 [place] connected to the ventilator CHEST: No chest wall deformity. Symmetrical expansion. LUNGS: Equal air entry with basilar rales CVS: Regular rate and rhythm, normal S1 and S2, no gallops, no murmurs, no rubs ABDOMEN: Soft, nontender. No hepatosplenomegaly, normal bowel sounds, no guarding or rigidity. Mid epigastric PEG tube is in place, incision site is clean dry and intact EXTREMITIES: No clubbing, nonpitting generalized edema and upper and lower extremities, and abdomen no cyanosis, 2+ pulses and upper and lower extremities. MUSCULOSKELETAL: Muscle strength and tone normal. SPINE: No scoliosis or deformity SKIN: No rashes CENTRAL NERVOUS SYSTEM: Sedated, but awakens to voice No focal deficits, tone is normal in all 4 extremities. - Labs CBC & Chem 7: 04/10/21 03:55 04/10/21 03:55 Labs: Abnormal Lab Results - Last 24 Hours (Table) 04/09/21 04/09/21 04/09/21 Range/Units 11:52 17:23 23:14 RBC (3.80-5.40) m/uL Hgb (11.4-16.0) gm/dL Hct (34.0-46.0) % Plt Count (150-450) k/uL ABG pCO2 (35-45) mmHg ABG pO2 (83-108) mmHg ABG HCO3 (21-25) mmol/L Sodium (137-145) mmol/L Chloride (98-107) mmol/L Carbon Dioxide (22-30) mmol/L Creatinine (0.52-1.04) mg/dL Glucose (74-99) mg/dL POC Glucose (mg/dL) 149 H 163 H 116 H (75-99) mg/dL Calcium (8.4-10.2) mg/dL ALT (4-34) U/L Lactate Dehydrogenase (313-618) U/L C-Reactive Protein (<1.0) mg/dL Total Protein (6.3-8.2) g/dL Albumin (3.5-5.0) g/dL 04/10/21 04/10/21 04/10/21 Range/Units 03:55 03:55 05:09 RBC 3.16 L (3.80-5.40) m/uL Hgb 9.6 L (11.4-16.0) gm/dL Hct 29.4 L (34.0-46.0) % Plt Count 545 H (150-450) k/uL ABG pCO2 (35-45) mmHg ABG pO2 (83-108) mmHg ABG HCO3 (21-25) mmol/L Sodium 134 L (137-145) mmol/L Chloride 96 L (98-107) mmol/L Carbon Dioxide 34 H (22-30) mmol/L Creatinine 0.45 L (0.52-1.04) mg/dL Glucose 141 H (74-99) mg/dL POC Glucose (mg/dL) 131 H (75-99) mg/dL Calcium 8.1 L (8.4-10.2) mg/dL ALT 37 H (4-34) U/L Lactate Dehydrogenase 652 H (313-618) U/L C-Reactive Protein 7.4 H (<1.0) mg/dL Total Protein 4.9 L (6.3-8.2) g/dL Albumin 2.0 L (3.5-5.0) g/dL 04/10/21 Range/Units 05:40 RBC (3.80-5.40) m/uL Hgb (11.4-16.0) gm/dL Hct (34.0-46.0) % Plt Count (150-450) k/uL ABG pCO2 53 H (35-45) mmHg ABG pO2 75 L (83-108) mmHg ABG HCO3 36 H (21-25) mmol/L Sodium (137-145) mmol/L Chloride (98-107) mmol/L Carbon Dioxide (22-30) mmol/L Creatinine (0.52-1.04) mg/dL Glucose (74-99) mg/dL POC Glucose (mg/dL) (75-99) mg/dL Calcium (8.4-10.2) mg/dL ALT (4-34) U/L Lactate Dehydrogenase (313-618) U/L C-Reactive Protein (<1.0) mg/dL Total Protein (6.3-8.2) g/dL Albumin (3.5-5.0) g/dL Assessment and Plan Plan: Assessment: #1. Acute bilateral COVID 19 related pneumonia. Intubated on 03/25/2021. Patient was outside the window for Remdesivir, due to progressive hypoxia. She was not vaccinated. She was started on Baricitinib on 03/22/2021. Transfer to the intensive care unit on 03/25/2021, and intubated on the same date. Patient received tracheostomy and PEG tube on 04/05/2021. On 04/10/2021 patient is on mechanical ventilator, on assist-control with a rate of 20, tidal volume is 375, FiO2 of 50% and PEEP down to 10. Paralytics have been discontinued on 04/07/2021 #2. Acute hypoxic respiratory failure secondary to above, remains sedated, but paralytics have been discontinued on 04/07/2021, and she has made some improvement in terms of FiO2 requirement which is down to 50% and she started a PEEP of 10 #3. Elevated inflammatory markers including LDH, mildly elevated D dimers. Improving #4. 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 Hypothyroidism #6. Hyperlipidemia #7. Pneumomediastinum with subcutaneous emphysema, resolved #8. MSSA pneumonia, patient is covered with Unasyn, pro-calcitonin level is improving Plan: The chest x-ray, blood gases and labs reviewed Patient has made improvements in terms of oxygenation, has not required paralytics since 04/07/2021 Chest x-ray shows stable bilateral interstitial infiltrates We'll continue current medical treatment Continue Decadron, will continue Lasix 40 mg daily Patient is still an significantly positive net fluid balance overall No fevers, we will repeat pro-calcitonin level Continue Lovenox 40 mg daily, we'll repeat a d-dimer today Continue COVID-19 multivitamins Continue weaning FiO2 to keep O2 sats at 90% and above Proceed with daily sedation holiday We'll discontinue fentanyl infusion will add Dilaudid on as-needed basis for discomfort, Continue tube feedings for nutritional support Follow-up labs CBC, CMP, chest x-ray and blood gas tomorrow tient and discussed their management with my nurse practitioner, Jessica Leigh. I reviewed the nurse practitioner's note and agree with the documented findings and plan of care. Lung sounds are positive for diffuse crackles throughout the lung merino. The findings and the impression was discussed with the patient. I attest to the documentation by the nurse practitioner. Time with Patient: Greater than 30 <Martínez Mars - Last Filed: 04/10/21 09:09> Objective - Vital Signs Vital signs: Vital Signs Temp 99.6 F 04/10/21 04:00 Pulse 71 04/10/21 06:00 Resp 20 04/10/21 06:00 BP 134/55 04/10/21 06:00 Pulse Ox 96 04/10/21 06:00 Intake & Output 04/09/21 04/10/21 04/10/21 18:59 06:59 18:59 Intake Total 1309.443 883.012 234.774 Output Total 2995 555 35 Balance -1685.557 328.012 199.774 Weight 87.1 kg Intake: IV 488 280 23 Ampicillin-Sulbactam 1.5 150 50 gm In Sodium Chloride 0.9 % 50 ml @ 100 mls/hr IVPB Q6HR [facility] Rx#:[id number] Sodium Chloride 0.9% 1, 260 200 20 000 ml @ 20 mls/hr IV . Q24H [facility] Rx#:[id number] pressure bag 78 30 3 Intake, IV Titration 314.443 334.012 192.774 Amount Norepinephrine 8 mg In 14.443 3.368 Sodium Chloride 0.9% 250 ml @ 0.05 MCG/KG/MIN 8. 562 mls/hr IV .Q24H [facility] Rx#:[id number] fentaNYL (PF). 1,000 mcg 100.000 86.241 93.74 In Sodium Chloride 0.9% 80 ml @ 0.5 MCG/KG/HR 3. 515 mls/hr IV .Q24H [facility] Rx#:[id number] propofoL 1,000 mg In 200.000 244.403 99.034 Empty Bag 1 bag @ Titrate IV .Q0M [facility] Rx#: [id number] Tube Feeding 247 209 19 Other 260 60 Output: Urine 2995 555 35 Other: Voiding Method Indwelling Catheter Indwelling Catheter # Voids 1 ABP, PAP, CO, CI - Last Documented Arterial Blood Pressure 120/51 - Labs CBC & Chem 7: 04/10/21 03:55 04/10/21 03:55 Labs: Abnormal Lab Results - Last 24 Hours (Table) 04/09/21 04/09/21 04/09/21 Range/Units 11:52 17:23 23:14 RBC (3.80-5.40) m/uL Hgb (11.4-16.0) gm/dL Hct (34.0-46.0) % Plt Count (150-450) k/uL ABG pCO2 (35-45) mmHg ABG pO2 (83-108) mmHg ABG HCO3 (21-25) mmol/L Sodium (137-145) mmol/L Chloride (98-107) mmol/L Carbon Dioxide (22-30) mmol/L Creatinine (0.52-1.04) mg/dL Glucose (74-99) mg/dL POC Glucose (mg/dL) 149 H 163 H 116 H (75-99) mg/dL Calcium (8.4-10.2) mg/dL ALT (4-34) U/L Lactate Dehydrogenase (313-618) U/L C-Reactive Protein (<1.0) mg/dL Total Protein (6.3-8.2) g/dL Albumin (3.5-5.0) g/dL 04/10/21 04/10/21 04/10/21 Range/Units 03:55 03:55 05:09 RBC 3.16 L (3.80-5.40) m/uL Hgb 9.6 L (11.4-16.0) gm/dL Hct 29.4 L (34.0-46.0) % Plt Count 545 H (150-450) k/uL ABG pCO2 (35-45) mmHg ABG pO2 (83-108) mmHg ABG HCO3 (21-25) mmol/L Sodium 134 L (137-145) mmol/L Chloride 96 L (98-107) mmol/L Carbon Dioxide 34 H (22-30) mmol/L Creatinine 0.45 L (0.52-1.04) mg/dL Glucose 141 H (74-99) mg/dL POC Glucose (mg/dL) 131 H (75-99) mg/dL Calcium 8.1 L (8.4-10.2) mg/dL ALT 37 H (4-34) U/L Lactate Dehydrogenase 652 H (313-618) U/L C-Reactive Protein 7.4 H (<1.0) mg/dL Total Protein 4.9 L (6.3-8.2) g/dL Albumin 2.0 L (3.5-5.0) g/dL 04/10/21 Range/Units 05:40 RBC (3.80-5.40) m/uL Hgb (11.4-16.0) gm/dL Hct (34.0-46.0) % Plt Count (150-450) k/uL ABG pCO2 53 H (35-45) mmHg ABG pO2 75 L (83-108) mmHg ABG HCO3 36 H (21-25) mmol/L Sodium (137-145) mmol/L Chloride (98-107) mmol/L Carbon Dioxide (22-30) mmol/L Creatinine (0.52-1.04) mg/dL Glucose (74-99) mg/dL POC Glucose (mg/dL) (75-99) mg/dL Calcium (8.4-10.2) mg/dL ALT (4-34) U/L Lactate Dehydrogenase (313-618) U/L C-Reactive Protein (<1.0) mg/dL Total Protein (6.3-8.2) g/dL Albumin (3.5-5.0) g/dL Assessment and Plan Plan: Joint evaluation with the nurse practitioners. The patient is stable. Will drop the PEEP down to 8, FiO2 down to 40%, increase the Lasix to 40 mg every 12 hours, she is off paralytics and we'll proceed with sedation holiday
--- NOTE | 2021-04-10 09:16 | XR ---
EXAMINATION TYPE: XR chest 1V portable DATE OF EXAM: 04/10/2021 COMPARISON: Chest x-ray 04/09/2021 HISTORY: Covid TECHNIQUE: Single frontal view of the chest is obtained. FINDINGS: There is no evident pneumothorax or sizable effusion. Bilateral airspace disease is again seen. Tracheostomy tube is stable. Left subclavian central venous catheter shows the distal tip near the cavoatrial junction level. Lung volumes are low. Cardiac mediastinal silhouette is likely stable. There are overlying artifacts. IMPRESSION: Correlate for pneumonia, ARDS.
--- NOTE | 2021-04-10 09:28 | P.PN ---
Subjective Progress Note Date: 04/10/21 This is 65-year-old female with past medical history of diabetes mellitus, hyperlipidemia, hypertension, osteoarthritis, no smoking history presented to the ER with worsening dyspnea 10 days accompanied by loss of appetite, fatigue, cough. Denies fevers or sweats. Denies muscle aches. On admission patient was febrile with temperature 99.1, WBC 5.2, tachycardic, cachectic, maintaining O2 sats of 88% on room air. Patient's respiratory status has further worsened and currently maintaining O2 sats of mid 90s on 3 L nasal cannula. Displays exertional dyspnea after ambulating from BR. Coronavirus PCR positive. D-dimer 0.39, LDH 1108, CRP 18.6. Chest x-ray reporting reticular and some minimal patc hy opacity's over bilateral lower lungs, left greater than right. Hemoglobin 14.5, platelets 287. Sodium currently 132, potassium 5, BUN 27, creatinine 0.77. A.m. Accu-Chek currently being obtained, the blood sugar 231 last night. Denies chest pain, palpitations. 03/20/2021 continues on covid cocktail .oxygen requirements worsened, currently requiring 10 L high flow nasal cannula to maintain O2 sats in the high 80s to low 90s. Reports had coughing spells last night but no cough this morning .exertional shortness of breath .Denies chest pain, palpitations. Afebrile. Ambulatory markers improving with the exception of mild increase in d- dimer.Calcitonin minimally elevated, 0.12. BMP pending. Blood sugars better improving. 03/21/21 maintaining O2 sats in the low 90s on 2 L nasal cannula. Reports minimal nonproductive cough, exertional shortness of breath, loose stools. Blood sugars controlled .Denies chest pain, palpitations. Denies diaphoresis. Afebrile. 03/22/2021 O2 requirements worsened, currently requiring 15 L high flow. Anxious. Current the afebrile, T-max 99.8, labs pending. Yesterday consuming 50-75% of diet. This morning some hypoglycemia, currently 85. Hemoglobin A1c 6.5 03/25/2021 respiratory status worsened .BiPAP at 100%, maintaining O2 sats of m id 80s, transferred to ICU. Anxious. Precedex initiated. Labs pending. 03/26/21 remains vent dependent with FiO2 70/+14 of PEEP. Maintained on diprovan, fentanyl and Pneumovax. Afebrile, normal WBC. Chest x-ray reporting diffuse interstitial pattern of bilateral infiltrates and pleural effusion. 03/27/2021 remains vent dependent, FiO2 60%/+16 of PEEP. Chest x-ray reporting diffuse pleural-parenchymal changes.Maintained on Nimbex, Levophed, fentanyl, diprovan. Continues on covid cocktail. 03/28/2021 FiO2 50%/+16 of PEEP. Chest x-ray reporting extensive subcutaneous emphysema with no change in bibasilar opacities. Levophed weaned off. Maintained on diprovan, Nimbex, fentanyl drips. Covid cocktail. Afebrile, T-max 99.9, WBC 11.8. BUN 36, creatinine 0.58. Blood sugars in the 200s. 03/29/2021 FiO2 50%/+16 of PEEP. Maintained on Levophed ,Nimbex and fentanyl drips. Chest x-ray reporting continued bilateral infiltrates, worsening subcutaneous emphysema. 3 catheters placed in left anterior chest wall right and left supraclavicular areas for decompression.Afebrile, T-max 99.4. 04/01/2021 vent dependent,FIO2 55%/+12 Peep. Maintained on Nimbex, Levophed diprovan and fentanyl drips. Chest x-ray reporting continued bilateral peripheral basilar Covid pneumonia without significant change, improving bilateral subcutaneous emphysema. Afebrile, T-max 99.1, WBC 12.5, Sputum reporting MSSA Evaluated by cardiology, echo ordered and pending. 04/02/2021 FiO2 50%/+15 of PEEP. Chest x-ray reporting bilateral airspace disease consistent with Covid pneumonia, improving subcutaneous emphysema. Maintained on diprovan, fentanyl, Nimbex. Levophed off and on throughout the night, currently off. Echo pending. Currently afebrile, T-max 99.1, WBC 12.2. D-dimer decreased to 1.1, LDH and CRP increased. 04/03/2021 FiO2 50/+15 of PEEP. Chest x-ray reporting similar bilateral airspace disease with subcutaneous emphysema. Maintained on Nimbex, fentanyl and diprovan. Echo reporting hyperdynamic systolic function, EF greater than 70% moderate pulmonary hypertension. 04/04/2021 remains vent dependent, FiO2 50%/PEEP of 15. Continues on Unasyn for MSSA-sputum, cold faded cocktail. Chest x-ray reporting persistent with slight improving peripheral and basilar Covid pneumonia. Maintained on Nimbex, fentanyl, diprovan. Weaning of paralytics in progress .Sinus rhythm. Sodium 133, Potassium 3.4. Inflammatory markers trending down with the exception of d-sweog-yoglad increased. Blood sugars controlled. 04/05/2021 FiO2 60%/+15 of PEEP; staff reports FiO2 bumped up during the night as patient had desatted. Chest x-ray reporting slight improvement but pe rsistent peripheral basilar airspace opacities. ABGs noted, reporting pO2 of 96. Maintained on diprovan, fentanyl, Nimbex, with norepinephrine resumed. Telemetry sinus rhythm. Scheduled for trach and peg today, tube feeds on hold. Continues on Unasyn, covid cocktail. Afebrile, T-max 101, WBC increased to 16.9 sputum, blood and urine cultures ordered. Inflammatory markers increased. 04/08/2021 FiO2 50%/+15 of PEEP maintained on fentanyl and diprovan drips.Nimbex weaned off yesterday. Remains off of pressors 24 hours. Telemetry sinus rhythm. Tolerating tube feeds at goal with minimal to no residuals. Continues on Unasyn, T-max 99, repeat sputum culture in progress. 04/09/2021 vent settings remain at FiO2 50%/+15 of PEEP. Maintained on diprovan-weaning off. Repeat sputum culture reported MSSA ,continues on Unasyn .Good chest x-ray reporting stable bilateral infiltrates. KUB afebrile, T-max 99.2, WBC 11.7. Potassium 3.2, receiving supplementation. Renal function stable. Inflammatory markers/LDH,CRP trending down. Tube feeds at goal, tolerating with minimal to no residuals, blood sugars controlled. Labile bloodpressures/heart rates. 04/10/2021 FiO2 45%/+8 of PEEP. Maintained on diprovan ,fentanyl drips with fentanyl being weaned off. Tolerating tube feeds at goal with minimal to no residual. Blood sugars controlled. Telemetry sinus rhythm. Daily sedation holidays, staff reports, following simple commands. T-max 99.6, normal WBC. Pro-calcitonin and Inflammatory markers trending down. Objective - Vital Signs Vital signs: Vital Signs Temp 99.6 F 04/10/21 04:00 Pulse 71 04/10/21 06:00 Resp 20 04/10/21 06:00 BP 134/55 04/10/21 06:00 Pulse Ox 96 04/10/21 06:00 Intake & Output 04/09/21 04/10/21 04/10/21 18:59 06:59 18:59 Intake Total 1309.443 883.012 234.774 Output Total 2995 555 35 Balance -1685.557 328.012 199.774 Weight 87.1 kg Intake: IV 488 280 23 Ampicillin-Sulbactam 1.5 150 50 gm In Sodium Chloride 0.9 % 50 ml @ 100 mls/hr IVPB Q6HR [facility] Rx#:[id number] Sodium Chloride 0.9% 1, 260 200 20 000 ml @ 20 mls/hr IV . Q24H [facility] Rx#:[id number] pressure bag 78 30 3 Intake, IV Titration 314.443 334.012 192.774 Amount Norepinephrine 8 mg In 14.443 3.368 Sodium Chloride 0.9% 250 ml @ 0.05 MCG/KG/MIN 8. 562 mls/hr IV .Q24H [facility] Rx#:[id number] fentaNYL (PF). 1,000 mcg 100.000 86.241 93.74 In Sodium Chloride 0.9% 80 ml @ 0.5 MCG/KG/HR 3. 515 mls/hr IV .Q24H [facility] Rx#:[id number] propofoL 1,000 mg In 200.000 244.403 99.034 Empty Bag 1 bag @ Titrate IV .Q0M [facility] Rx#: [id number] Tube Feeding 247 209 19 Other 260 60 Output: Urine 2995 555 35 Other: Voiding Method Indwelling Catheter Indwelling Catheter # Voids 1 ABP, PAP, CO, CI - Last Documented Arterial Blood Pressure 120/51 - Exam Limited PHYSICAL EXAM on a intubated covid patient: VITAL SIGNS: As above GENERAL: Maintained on mechanical ventilator, sedated. CARDIOVASCULAR: S1, S2 regular. Telemetry sinus rhythm ABD: Nondistended NERVOUS SYSTEM: Unable to evaluate, patient sedated. - Labs CBC & Chem 7: 04/10/21 03:55 04/10/21 03:55 Labs: Abnormal Lab Results - Last 24 Hours (Table) 04/09/21 04/09/21 04/09/21 Range/Units 11:52 17:23 23:14 RBC (3.80-5.40) m/uL Hgb (11.4-16.0) gm/dL Hct (34.0-46.0) % Plt Count (150-450) k/uL ABG pCO2 (35-45) mmHg ABG pO2 (83-108) mmHg ABG HCO3 (21-25) mmol/L Sodium (137-145) mmol/L Chloride (98-107) mmol/L Carbon Dioxide (22-30) mmol/L Creatinine (0.52-1.04) mg/dL Glucose (74-99) mg/dL POC Glucose (mg/dL) 149 H 163 H 116 H (75-99) mg/dL Calcium (8.4-10.2) mg/dL ALT (4-34) U/L Lactate Dehydrogenase (313-618) U/L C-Reactive Protein (<1.0) mg/dL Total Protein (6.3-8.2) g/dL Albumin (3.5-5.0) g/dL 04/10/21 04/10/21 04/10/21 Range/Units 03:55 03:55 05:09 RBC 3.16 L (3.80-5.40) m/uL Hgb 9.6 L (11.4-16.0) gm/dL Hct 29.4 L (34.0-46.0) % Plt Count 545 H (150-450) k/uL ABG pCO2 (35-45) mmHg ABG pO2 (83-108) mmHg ABG HCO3 (21-25) mmol/L Sodium 134 L (137-145) mmol/L Chloride 96 L (98-107) mmol/L Carbon Dioxide 34 H (22-30) mmol/L Creatinine 0.45 L (0.52-1.04) mg/dL Glucose 141 H (74-99) mg/dL POC Glucose (mg/dL) 131 H (75-99) mg/dL Calcium 8.1 L (8.4-10.2) mg/dL ALT 37 H (4-34) U/L Lactate Dehydrogenase 652 H (313-618) U/L C-Reactive Protein 7.4 H (<1.0) mg/dL Total Protein 4.9 L (6.3-8.2) g/dL Albumin 2.0 L (3.5-5.0) g/dL 04/10/21 Range/Units 05:40 RBC (3.80-5.40) m/uL Hgb (11.4-16.0) gm/dL Hct (34.0-46.0) % Plt Count (150-450) k/uL ABG pCO2 53 H (35-45) mmHg ABG pO2 75 L (83-108) mmHg ABG HCO3 36 H (21-25) mmol/L Sodium (137-145) mmol/L Chloride (98-107) mmol/L Carbon Dioxide (22-30) mmol/L Creatinine (0.52-1.04) mg/dL Glucose (74-99) mg/dL POC Glucose (mg/dL) (75-99) mg/dL Calcium (8.4-10.2) mg/dL ALT (4-34) U/L Lactate Dehydrogenase (313-618) U/L C-Reactive Protein (<1.0) mg/dL Total Protein (6.3-8.2) g/dL Albumin (3.5-5.0) g/dL Assessment and Plan Assessment: Acute COVID-19 pneumonia with underlying MSSA pneumonia-on Unasyn Acute hypoxic respiratory failure secondary to the above, mechanical vent dependent. Status post trach and PEG tube placement. Subcutaneous emphysema and pneumomediastinum secondary to Covid., Status post 3 decompression catheters, resolved. Hyponatremia, mild, resolved Diabetes mellitus, hyperglycemic hemoglobin A1c 6.5, in addition to steroid contribution Hypothyroidism Hyperlipidemia Plan: Continue on current medication regime ,monitoring and symptomatic treatment. Covid cocktail. ICU management as per campus manager.Prognosis guarded given multiple complex medical issues. The impression and plan of care has been dictated as directed. : I performed a history and examination of this patient, discussed the same with the dictator. I agree with the dictator's note ,documented as a scribe. Any additional findings or plans will be noted.
[2021-04-10 11:35] LABS: Glucose,Whole Blood 166 mg/dL (75-99)
[2021-04-10] MEDS: HYDROmorphone 1 MG/ML 1 ML SYRINGE IVP PRN ×2 (12:54→17:23)
[2021-04-10] MEDS: CLEVIDIPINE BUTYRATE 25 MG in EMPTY BAG 1 BAG IV PRN ×2 (14:57→19:55)
[2021-04-10 17:58] LABS: Glucose,Whole Blood 204 mg/dL (75-99)
[2021-04-10] MEDS: lisinopriL 10 MG TAB PO SCH (20:45)
[2021-04-10] MEDS: ATORVASTATIN 40 MG TAB PO SCH (20:45)
[2021-04-10 23:38] LABS: Glucose,Whole Blood 149 mg/dL (75-99)
[2021-04-10] MEDS: NOREPINEPHRINE 8 MG in SODIUM CHLORIDE 0.9% 250 ML IV SCH (23:40)
[2021-04-11] MEDS: HYDROmorphone 1 MG/ML 1 ML SYRINGE IVP PRN ×4 (01:07→16:37)
[2021-04-11 04:52] LABS: Basophils % (A) 0 %; Eosinophils # (A) 0.5 k/uL (0-0.7); Eosinophils % (A) 3 %; HCT 36.1 % (34.0-46.0); HGB 11.4 gm/dL (11.4-16.0); Lymphocytes # (A) 2.2 k/uL (1.0-4.8); Lymphocytes % (A) 15 %; MCH 29.3 pg (25.0-35.0); MCHC 31.6 g/dL (31.0-37.0); MCV 92.6 fL (80.0-100.0); Mean Platelet Volume 7.5; Monocytes # (A) 0.9 k/uL (0-1.0); Monocytes % (A) 6 %; Neutrophils # (A) 10.8 k/uL (1.3-7.7); Neutrophils % (A) 73 %; Platelet Count 633 k/uL (150-450); RDW 15.1 % (11.5-15.5); WBC 14.7 k/uL (3.8-10.6)
[2021-04-11 05:16] LABS: ALT 35 U/L (4-34); AST 25 U/L (14-36); African American GFR (CKD) >90 (>60 ml/min/1.73 sqM); Albumin 2.5 g/dL (3.5-5.0); Alkaline Phosphatase 134 U/L (38-126); Anion Gap 6 mmol/L; Blood Urea Nitrogen 12 mg/dL (7-17); C Reactive Protein 5.7 mg/dL (<1.0); Calcium 8.8 mg/dL (8.4-10.2); Carbon Dioxide 35 mmol/L (22-30); Chloride 92 mmol/L (98-107); Glucose 175 mg/dL (74-99); LDH 717 U/L (313-618); Non-African American GFR(CKD) >90 (>60 ml/min/1.73 sqM); Potassium 3.3 mmol/L (3.5-5.1); Sodium 133 mmol/L (137-145); Total Bilirubin 0.3 mg/dL (0.2-1.3); Total Protein 5.7 g/dL (6.3-8.2)
[2021-04-11 05:26] LABS: Glucose,Whole Blood 179 mg/dL (75-99)
[2021-04-11] MEDS: AMPICILLIN-SULBACTAM 1.5 GM in SODIUM CHLORIDE 0.9% 50 ML IVPB SCH ×4 (05:31→23:10)
[2021-04-11] MEDS: LEVOTHYROXINE 75 MCG TAB PO SCH (05:31)
[2021-04-11] MEDS: CLEVIDIPINE BUTYRATE 25 MG in EMPTY BAG 1 BAG IV PRN ×4 (05:31→23:21)
[2021-04-11] MEDS: INSULIN ASPART (NovoLOG) 100 UNIT/ML VIAL SQ SCH ×4 (05:34→23:15)
[2021-04-11 05:56] LABS: ABG Base Excess 16.4 mmol/L; ABG HCO3 39 mmol/L (21-25); ABG Oxygen Saturation 94.4 % (94-97); ABG PCO2 47 mmHg (35-45); ABG PH 7.53 (7.35-7.45); ABG PO2 66 mmHg (83-108); ABG TCO2 41 mmol/L (19-24); Allen Test Performed? Yes
[2021-04-11] MEDS: INSULIN DETEMIR (LEVEMIR) 100 UNIT/ML SYR SQ SCH (06:08)
[2021-04-11] MEDS: POTASSIUM BICARB-CITRIC ACID 25 MEQ TABLET.EFF PO SCH ×2 (06:08→06:35)
[2021-04-11] MEDS: PANTOPRAZOLE 40 MG/10 ML VIAL IVP SCH (08:31)
[2021-04-11] MEDS: CHOLECALCIFEROL 25 MCG (1000 IU) TABLET PO SCH (08:31)
[2021-04-11] MEDS: DEXAMETHASONE SOD PHOSPHATE 10 MG/ML 1 ML VIAL IVP SCH (08:31)
[2021-04-11] MEDS: ENOXAPARIN 40 MG/0.4 ML SYRINGE SQ SCH (08:31)
[2021-04-11] MEDS: ASCORBIC ACID 500 MG TAB PO SCH (08:31)
[2021-04-11] MEDS: ZINC SULFATE 220 MG CAP PO SCH (08:31)
[2021-04-11] MEDS: FUROSEMIDE 10 MG/ML 4 ML VIAL IV SCH ×2 (08:31→20:04)
[2021-04-11] MEDS: CHLORHEXIDINE GLUCONATE 15 ML CUP MUCOUS MEM SCH ×2 (08:31→20:03)
--- NOTE | 2021-04-11 08:39 | XR ---
EXAMINATION TYPE: XR chest 1V portable DATE OF EXAM: 04/11/2021 COMPARISON: 04/11/2021 HISTORY: Shortness of breath TECHNIQUE: Single frontal view of the chest is obtained. FINDINGS: Tracheostomy tube and left-sided central line stable with bilateral interstitial alveolar infiltrates. No pneumothorax. Mild hyperinflation the lungs. Heart size stable. Suggestion of a PEG t ube. IMPRESSION: Stable diffuse bilateral infiltrates.
[2021-04-11] MEDS: ALBUTEROL HFA INHALER INHALATION SCH ×4 (09:10→20:17)
--- NOTE | 2021-04-11 10:26 | P.PN ---
<Emilia Marquez - Last Filed: 04/11/21 10:24> Subjective Progress Note Date: 04/11/21 CHIEF COMPLAINT: COVID-19 pneumonia HISTORY OF PRESENT ILLNESS: Patient is in the ICU and on mechanical ventilation. She is status post tracheostomy and PEG tube placement. She is tolerating her tube feeds and they are at goal at 19 ml/hr. Afebrile WBC is up 14.7 k 3.3 PHYSICAL EXAM: VITAL SIGNS: Reviewed. GENERAL: Well-developed in no acute distress. HEENT: Moist buccal mucosa. Head is atraumatic, normocephalic. Tracheostomy site clean dry and intact ABDOMEN: Soft. Nondistended. PEG tube site clean dry and intact NEUROLOGIC: On mechanical ventilation and sedated ASSESSMENT: 1. Acute hypoxic respiratory failure secondary to COVID-19 pneumonia. Status post tracheostomy placement 2. Severe protein calorie malnutrition status post PEG tube placement PLAN: -Continue tube feedings -Continue ICU management -Continue supportive care -Potassium being replaced Physician Registered Vascular Technologist (Rvt) note has been reviewed by physician. Signing provider agrees with the documented findings, assessment, and plan of care. Objective - Vital Signs Vital signs: Vital Signs Temp 99.2 F 04/11/21 04:00 Pulse 91 04/11/21 07:00 Resp 21 04/11/21 07:00 BP 135/73 04/11/21 07:00 Pulse Ox 95 04/11/21 07:00 Intake & Output 04/10/21 04/11/21 04/11/21 18:59 06:59 18:59 Intake Total 1338.632 956.145 45 Output Total 3245 2620 45 Balance -1906.368 -1663.855 0 Weight 87.1 kg 82.7 kg Intake: IV 406 312 26 Ampicillin-Sulbactam 1.5 100 gm In Sodium Chloride 0.9 % 50 ml @ 100 mls/hr IVPB Q6HR [facility] Rx#:[id number] Sodium Chloride 0.9% 1, 240 240 20 000 ml @ 20 mls/hr IV . Q24H [facility] Rx#:[id number] pressure bag 66 72 6 Intake, IV Titration 536.632 307.145 Amount Clevidipine Butyrate 25 4.467 57.333 mg In Empty Bag 1 bag @ 1 MG/HR 2 mls/hr IV .Q24H [facility] Rx#:[id number] fentaNYL (PF). 1,000 mcg 149.515 In Sodium Chloride 0.9% 80 ml @ 0.5 MCG/KG/HR 3. 515 mls/hr IV .Q24H [facility] Rx#:[id number] propofoL 1,000 mg In 382.650 249.812 Empty Bag 1 bag @ Titrate IV .Q0M [facility] Rx#: [id number] Tube Feeding 266 247 19 Other 130 90 Output: Urine 3245 2620 45 Other: Voiding Method Indwelling Catheter Indwelling Catheter ABP, PAP, CO, CI - Last Documented Arterial Blood Pressure 125/61 - Labs CBC & Chem 7: 04/11/21 04:15 04/11/21 04:15 Labs: Abnormal Lab Results - Last 24 Hours (Table) 04/10/21 04/10/21 04/10/21 Range/Units 03:55 11:33 15:09 WBC (3.8-10.6) k/uL Plt Count (150-450) k/uL Neutrophils # (1.3-7.7) k/uL D-Dimer 2.88 H (<0.60) mg/L FEU ABG pH (7.35-7.45) ABG pCO2 (35-45) mmHg ABG pO2 (83-108) mmHg ABG HCO3 (21-25) mmol/L ABG Total CO2 (19-24) mmol/L Sodium (137-145) mmol/L Potassium (3.5-5.1) mmol/L Chloride (98-107) mmol/L Carbon Dioxide (22-30) mmol/L Creatinine (0.52-1.04) mg/dL Glucose (74-99) mg/dL POC Glucose (mg/dL) 166 H (75-99) mg/dL ALT (4-34) U/L Alkaline Phosphatase (38-126) U/L Lactate Dehydrogenase (313-618) U/L C-Reactive Protein (<1.0) mg/dL Total Protein (6.3-8.2) g/dL Albumin (3.5-5.0) g/dL Procalcitonin 0.65 H (0.02-0.09) ng/mL 04/10/21 04/10/21 04/11/21 Range/Units 17:56 23:35 04:15 WBC 14.7 H (3.8-10.6) k/uL Plt Count 633 H (150-450) k/uL Neutrophils # 10.8 H (1.3-7.7) k/uL D-Dimer (<0.60) mg/L FEU ABG pH (7.35-7.45) ABG pCO2 (35-45) mmHg ABG pO2 (83-108) mmHg ABG HCO3 (21-25) mmol/L ABG Total CO2 (19-24) mmol/L Sodium (137-145) mmol/L Potassium (3.5-5.1) mmol/L Chloride (98-107) mmol/L Carbon Dioxide (22-30) mmol/L Creatinine (0.52-1.04) mg/dL Glucose (74-99) mg/dL POC Glucose (mg/dL) 204 H 149 H (75-99) mg/dL ALT (4-34) U/L Alkaline Phosphatase (38-126) U/L Lactate Dehydrogenase (313-618) U/L C-Reactive Protein (<1.0) mg/dL Total Protein (6.3-8.2) g/dL Albumin (3.5-5.0) g/dL Procalcitonin (0.02-0.09) ng/mL 04/11/21 04/11/21 04/11/21 Range/Units 04:15 04:15 05:25 WBC (3.8-10.6) k/uL Plt Count (150-450) k/uL Neutrophils # (1.3-7.7) k/uL D-Dimer 4.27 H (<0.60) mg/L FEU ABG pH (7.35-7.45) ABG pCO2 (35-45) mmHg ABG pO2 (83-108) mmHg ABG HCO3 (21-25) mmol/L ABG Total CO2 (19-24) mmol/L Sodium 133 L (137-145) mmol/L Potassium 3.3 L (3.5-5.1) mmol/L Chloride 92 L (98-107) mmol/L Carbon Dioxide 35 H (22-30) mmol/L Creatinine 0.43 L (0.52-1.04) mg/dL Glucose 175 H (74-99) mg/dL POC Glucose (mg/dL) 179 H (75-99) mg/dL ALT 35 H (4-34) U/L Alkaline Phosphatase 134 H (38-126) U/L Lactate Dehydrogenase 717 H (313-618) U/L C-Reactive Protein 5.7 H (<1.0) mg/dL Total Protein 5.7 L (6.3-8.2) g/dL Albumin 2.5 L (3.5-5.0) g/dL Procalcitonin (0.02-0.09) ng/mL 04/11/21 Range/Units 05:50 WBC (3.8-10.6) k/uL Plt Count (150-450) k/uL Neutrophils # (1.3-7.7) k/uL D-Dimer (<0.60) mg/L FEU ABG pH 7.53 H (7.35-7.45) ABG pCO2 47 H (35-45) mmHg ABG pO2 66 L (83-108) mmHg ABG HCO3 39 H (21-25) mmol/L ABG Total CO2 41 H (19-24) mmol/L Sodium (137-145) mmol/L Potassium (3.5-5.1) mmol/L Chloride (98-107) mmol/L Carbon Dioxide (22-30) mmol/L Creatinine (0.52-1.04) mg/dL Glucose (74-99) mg/dL POC Glucose (mg/dL) (75-99) mg/dL ALT (4-34) U/L Alkaline Phosphatase (38-126) U/L Lactate Dehydrogenase (313-618) U/L C-Reactive Protein (<1.0) mg/dL Total Protein (6.3-8.2) g/dL Albumin (3.5-5.0) g/dL Procalcitonin (0.02-0.09) ng/mL <Felipe Olson - Last Filed: 04/11/21 17:38> Subjective As above. Patient remains on the ventilator. Tolerating tube feeds at goal. Bolsters appropriately tight. We'll follow on an as-needed basis. Please call if needed. Objective - Vital Signs Vital signs: Vital Signs Temp 98.4 F 04/11/21 16:00 Pulse 110 H 04/11/21 16:30 Resp 28 H 12/23/21 16:30 BP 128/73 04/11/21 10:30 Pulse Ox 95 04/11/21 16:30 Intake & Output 04/10/21 04/11/21 04/11/21 18:59 06:59 18:59 Intake Total 1338.632 956.145 943.318 Output Total 3245 2620 2630 Balance -1906.368 -1663.855 -1686.682 Weight 87.1 kg 82.7 kg Intake: IV 406 312 292 Ampicillin-Sulbactam 1.5 100 50 gm In Sodium Chloride 0.9 % 50 ml @ 100 mls/hr IVPB Q6HR [facility] Rx#:[id number] Sodium Chloride 0.9% 1, 240 240 200 000 ml @ 20 mls/hr IV . Q24H [facility] Rx#:[id number] pressure bag 66 72 42 Intake, IV Titration 536.632 307.145 366.318 Amount Clevidipine Butyrate 25 4.467 57.333 50.000 mg In Empty Bag 1 bag @ 1 MG/HR 2 mls/hr IV .Q24H [facility] Rx#:[id number] Magnesium Sulfate-D5w Pmx 100 1 gm In Dextrose/Water 1 100ml.bag @ 100 mls/hr IVPB Q1H [facility] Rx#: [id number] fentaNYL (PF). 1,000 mcg 149.515 In Sodium Chloride 0.9% 80 ml @ 0.5 MCG/KG/HR 3. 515 mls/hr IV .Q24H [facility] Rx#:[id number] propofoL 1,000 mg In 382.650 249.812 216.318 Empty Bag 1 bag @ Titrate IV .Q0M [facility] Rx#: [id number] Tube Feeding 266 247 165 Other 130 90 120 Output: Urine 3245 2620 2630 Other: Voiding Method Indwelling Catheter Indwelling Catheter Indwelling Catheter ABP, PAP, CO, CI - Last Documented Arterial Blood Pressure 172/74 - Labs CBC & Chem 7: 04/11/21 04:15 04/11/21 14:51 Labs: Abnormal Lab Results - Last 24 Hours (Table) 04/10/21 04/10/21 04/11/21 Range/Units 17:56 23:35 04:15 WBC 14.7 H (3.8-10.6) k/uL Plt Count 633 H (150-450) k/uL Neutrophils # 10.8 H (1.3-7.7) k/uL D-Dimer (<0.60) mg/L FEU ABG pH (7.35-7.45) ABG pCO2 (35-45) mmHg ABG pO2 (83-108) mmHg ABG HCO3 (21-25) mmol/L ABG Total CO2 (19-24) mmol/L Sodium (137-145) mmol/L Potassium (3.5-5.1) mmol/L Chloride (98-107) mmol/L Carbon Dioxide (22-30) mmol/L Creatinine (0.52-1.04) mg/dL Glucose (74-99) mg/dL POC Glucose (mg/dL) 204 H 149 H (75-99) mg/dL ALT (4-34) U/L Alkaline Phosphatase (38-126) U/L Lactate Dehydrogenase (313-618) U/L C-Reactive Protein (<1.0) mg/dL Total Protein (6.3-8.2) g/dL Albumin (3.5-5.0) g/dL 04/11/21 04/11/21 04/11/21 Range/Units 04:15 04:15 05:25 WBC (3.8-10.6) k/uL Plt Count (150-450) k/uL Neutrophils # (1.3-7.7) k/uL D-Dimer 4.27 H (<0.60) mg/L FEU ABG pH (7.35-7.45) ABG pCO2 (35-45) mmHg ABG pO2 (83-108) mmHg ABG HCO3 (21-25) mmol/L ABG Total CO2 (19-24) mmol/L Sodium 133 L (137-145) mmol/L Potassium 3.3 L (3.5-5.1) mmol/L Chloride 92 L (98-107) mmol/L Carbon Dioxide 35 H (22-30) mmol/L Creatinine 0.43 L (0.52-1.04) mg/dL Glucose 175 H (74-99) mg/dL POC Glucose (mg/dL) 179 H (75-99) mg/dL ALT 35 H (4-34) U/L Alkaline Phosphatase 134 H (38-126) U/L Lactate Dehydrogenase 717 H (313-618) U/L C-Reactive Protein 5.7 H (<1.0) mg/dL Total Protein 5.7 L (6.3-8.2) g/dL Albumin 2.5 L (3.5-5.0) g/dL 04/11/21 04/11/21 Range/Units 05:50 11:29 WBC (3.8-10.6) k/uL Plt Count (150-450) k/uL Neutrophils # (1.3-7.7) k/uL D-Dimer (<0.60) mg/L FEU ABG pH 7.53 H (7.35-7.45) ABG pCO2 47 H (35-45) mmHg ABG pO2 66 L (83-108) mmHg ABG HCO3 39 H (21-25) mmol/L ABG Total CO2 41 H (19-24) mmol/L Sodium (137-145) mmol/L Potassium (3.5-5.1) mmol/L Chloride (98-107) mmol/L Carbon Dioxide (22-30) mmol/L Creatinine (0.52-1.04) mg/dL Glucose (74-99) mg/dL POC Glucose (mg/dL) 185 H (75-99) mg/dL ALT (4-34) U/L Alkaline Phosphatase (38-126) U/L Lactate Dehydrogenase (313-618) U/L C-Reactive Protein (<1.0) mg/dL Total Protein (6.3-8.2) g/dL Albumin (3.5-5.0) g/dL
[2021-04-11 11:30] LABS: Glucose,Whole Blood 185 mg/dL (75-99)
[2021-04-11] MEDS ORDERED: LIDOCAINE 1% INJ 10MG/ML (20 ML MDV) ONE (12:45)
[2021-04-11] MEDS ORDERED: LIDOCAINE 1% INJ 10MG/ML (20 ML MDV) SQ ONE (13:52)
--- NOTE | 2021-04-11 14:16 | XR ---
EXAMINATION TYPE: XR chest 1V confirm line [facility] DATE OF EXAM: 04/11/2021 COMPARISON: Chest x-ray 04/11/2021 at earlier time HISTORY: PICC line placement TECHNIQUE: Single frontal view of the chest is obtained. FINDINGS: There is been placement of a right-sided PICC line, distal tip is coursing to the level of the cavoatrial junction. Patient is rotated, no other significant interval change. IMPRESSION: No evident complication status post PICC line placement.
--- NOTE | 2021-04-11 14:47 | P.PN ---
Subjective Progress Note Date: 04/11/21 Principal diagnosis: Acute hypoxic respiratory failure secondary to COVID-19 pneumonia 03/24/2021, the patient is having more difficulty in breathing. This morning, the patient started having worsening shortness of breath and worsening and hypoxemia. The patient is currently on BiPAP at a pressure of 14/8 cm of water. He is quite tachypneic. The respiratory rate is around 34 times a minute and her minute ventilation is above 24 L per minute. She is quite tachypneic and short of breath and she is also tachycardic. Note that, the patient's condition was gradually getting worse over the past several days. The patient was on 9 L of oxygen by nasal cannula and there was progressive rise in her oxygen requirements and she was brought up to 15 L and later on to 100% nonrebreather facemask and currently she is on a BiPAP. At the same time, the patient is being treated with a combination of Decadron and Baricitinib per protocol. She is on Lovenox for DVT prophylaxis 40 mg subcu daily basis. This is consistent with COVID 19 related pneumonia. While on the BiPAP, she underwent a blood gas that showed a pH of 7.46 with a pCO2 of 37 and pO2 of 50. Subsequently, her oxygen saturations improved. Her d-dimer from yesterday was more than 34. Her CRP level was 14 and her LDH level was 657. Rest of the blood work shows a potassium level of 3.4 with a sodium of 140. Reevaluated today on 03/25/2021, patient was transferred to the ICU this morning, she was placed on 100% FiO2, and BiPAP, and her O2 saturations remained marginal. I evaluated the patient in the ICU, and she was made aware that her condition seems to be worsening and she will likely end up requiring intubation and mechanical ventilation. An hour later, the patient decompensated, and she required to be intubated and mechanically ventilated. Patient was placed initially on 100% FiO2, EPAP of 12, tidal volume is 400, rate of 30. ABG is pending. Her d-dimer is 34. The left lites are normal LDH 879 C-reactive protein 15.6. CT angiogram few days ago showed no evidence of pulmonary embo lism. Venous Doppler negative for DVT Reevaluated today on 03/26/2021, patient remains in the ICU, intubated and mechanically ventilated. Patient is on assist control rate of 3 to tidal volume 400 FiO2 80%, PEEP of 14. Changes were made including tidal volume decreased to 375 FiO2 decreased to 70% PEEP increased to 16. Rate remained the same at 32. Patient is on propofol at 50 fentanyl at 0.5 Nimbex at 1.5. She is also on enteral feeding. She is hemodynamically stable, not requiring any pressors. Chest x-ray continues to show bilateral interstitial infiltrates consistent with COVID-19 pneumonia. Patient had negative workup for pulmonary embolism and negative workup for venous Doppler upon admission. ABG today showed a pO2 of 106 pCO2 of 40 pH of 7.39. Her CBC is relatively normal electrolytes are normal renal profile is normal. Reevaluated today on 03/27/2021, remains in the ICU intubated and mechanically ventilated. She is presently on assist control rate of 3 to tidal volume 375 PEEP is 16, FiO2 60%. ABG showed a pO2 of 67 pCO2 44 pH of 7.30. Hence I cut down her FiO2 to 55%. Patient remains on propofol at 40 mcg/kg/m norepinephrine at 0.05 mcg/kg/m Nimbex at 1.5 mcg/kg/ minute, and fentanyl 0.5 mcg/kg/h. Patient remains sedated and paralyzed, her ABG this morning showed a pO2 of 67 pCO2 of 44 pH of 7.30, FiO2 decreased to 55%. However as I was dictating this note, I was notified by the nurse that she developed subcu emphysema, and I'm recommending a stat chest x-ray, to determine if the patient has a new onset normal mediastinum or possibly a pneumothorax. Chest x-ray is pending at the time of this dictation. A shunt remains on enteral feedings. She is requiring a small dose of norepinephrine for hemodynamic instability. Reevaluated today on 03/28/2021, patient remains in the ICU, intubated and mechanically ventilated. Patient is on assist control rate of 32 volume of 375 FiO2 50% PEEP of 16. ABG showed a pO2 of 67 pCO2 of 49 pH of 7.30. Patient is on IV fluid at 1 20 mL/h, up a fall 45 mcg/kg/m, Nimbex at 1.5 mcg/kg/m, fentanyl 0.5 mcg/kg/h, she is off norepinephrine. CBC showed WBC count of 11.8 hemoglobin is 12.2. Hematocrit is 39.4. Electrolytes are normal renal profile is normal. Chest x-ray continues to show bilateral infiltrates, and there is evidence of pneumomediastinum and subcutaneous emphysema. Patient remains on th e COVID-19 cocktail, she is on echo from 6 mg IV push daily she is also on Lovenox 40 mg subcu twice a day. Patient is also receiving baricitinib . Patient is also on enteral feedings. Reevaluated today on 03/29/2021, remains in the ICU, intubated and mechanically ventilated. Patient is on assist control rate of 32, FiO2 of 50% tidal volume of 375 PEEP 16, decreased down to 14 today. And increase her FiO2 to 55%. ABG showed a pO2 of 70 pCO2 49 pH of 7.33 WBC count is 16.5 hemoglobin is 12 electrolytes are normal renal profile is normal. Patient is on multiple drips including IV fluid at 120 mL/h and I cut it down to KVO she is on enteral feeding via orogastric tube. Nimbex 2 mcg/kg/m propofol 60 mcg/kg/m fentanyl 0.75 mcg/kg/h. Patient is now off norepinephrine. Chest x-ray continues to show bilateral infiltrates, and worsening subcu emphysema, hence I went ahead and placed 3 different 14-Anguillan catheters, one placed in the left supraclavicular area, one in the right supraclavicular area, and one in the anterior chest wall on the left side. Mostly to decompressive subcutaneous emphysema. These were placed uneventfully, and place and a sterile field. And covered with dressing. Patient is on the COVID-19 cocktail. She is also on baricitinib Decadron 6 mg IV push daily, Lovenox 40 mg subcu twice a day, she is also on Protonix 40 mg IV push daily and zinc. Reevaluated today on 03/30/2021, patient remains in the ICU, intubated and mechanically ventilated. She remains on assist control rate of 32 tidal volume 375 FiO2 60% and I cut it down to 55% PEEP remains at 10. ABG showed a pO2 of 59 pCO2 of 39 pH of 7.44. Chest x-ray showed bilateral infiltrates, persistent subcutaneous emphysema but seems to be less compared to the previous 2 days. No evidence of pneumothorax. Remains on multiple drips including norepinephrine at 0.03 mcg/kg/m, Nimbex at 2 mcg/kg/m, fentanyl at 2.5 mcg/kg/h propofol 50 mcg/kg/m. IV fluid at 20 mL per hour. Patient is on vital AF 26 mL per hour. Chest x-ray again is not showing much of a change. Patient remains on the COVID -19 cocktail including Decadron, Lovenox, Protonix, and she is also on baricitinib Reevaluated today on 03/31/2021, patient remains in the ICU, intubated and mechanically ventilated. She is on assist control rate of 3 to tidal volume 375 FiO2 70% and PEEP at 10 however after reviewing her ABG I recommended increasing the PEEP to 12 and I cut down her FiO2 from 70% to 65%. ABG showed a pO2 of 65 pCO2 of 39 pH of 7.30. Patient remains on Nimbex at 2 mcg/kg/m fentanyl at 2.5 mcg/kg/h propofol at 50 mcg/kg/m. She is also requiring norepinephrine at 0.08 mcg/kg/m, her blood pressure seems to be extremely labile. It is all over the chart. Today I recommended an echocardiogram, I also recommended serum cortisol level on this patient. Her chest x-ray continues to show bilateral infiltrates and subcu emphysema. However the subcu emphysema seems to be regressing. There is no evidence of pneumothorax. WBC count is 11.1 hemoglobin is 11.5 twice a normal renal profile is normal. Transaminases are slightly elevated. Yesterday the patient had positive sputum cultures for staph aureus, it was basically MSSA, hence we discontinued her baricitinib, received a dose of vancomycin, but considering the staph aureus is MSSA, will start the patient on cefepime and discontinue vancomycin and this was already discontinued yesterday. On 04/10/2021 patient seen in follow-up in the intensive care unit, she remains sedated, she has received a tracheostomy, she is connected to the ventilator on assist control mode of ventilation with a rate of 20, tidal volume is 375, FiO2 of 50% and PEEP of 10, this morning's blood gas shows pO2 of 75, pCO2 53, and pH is 7.45 and this was done on the above-mentioned vent settings, she is currently on 0.9 normal saline at a rate 20 ML per hour, Diprivan is a 55 mics per kilo per minute, and fentanyl infusion is a 2 mics per kilo per minute, she is tole rating tube feedings with vital HP at a rate of 19 with a goal of 19. Hemodynamically stable, not requiring any vasopressor support, she is in sinus rhythm with a rate of 105, slightly tachycardic, no fevers overnight, vital signs have been stable. Her peak airway pressure is 29 on the ventilator, and plateau pressure is 24, she has been getting daily dose of IV Lasix 40 mg daily, she is in -1.3 L net fluid balance over the last 24 hours. Her chest x-ray today has been reviewed showing stable bilateral interstitial alveolar infiltrates. No pneumothorax. He remains on Unasyn for evidence of emesis today in the sputum cultures. Her last sputum culture from 04/05/2021 showed MSSA. Her last pro-calcitonin from 04/08/2021 was improving from the original value, and was down to 1.59. Prevacid her labs have been reviewed, with blood cell count was 10.4, hemoglobin is 9.6, platelet count is 545, serum sodium is 134, potassium 3.7, chloride is 96, CO2 is 34, BUN is 12 creatinine 0.45, her LDH is improving and is down to 652 CRP is down to 7.4 on today's labs. Her last d-dimer from 04/07/2021 was 1.46, patient is on prophylactic dose Lovenox 40 mg daily, she remains on Decadron 6 mg daily. Lung sounds reveal coarse breath sounds, generally she remains edematous. Overall she remains an significantly positive fluid balance since admission. Very minimal secretions suctioned from her tracheostomy. Neurologically patient follows simple commands, she attempts to open her eyes this morning even on sedation, we will attempt another sedation holiday today. A very today on 04/11/21, patient remains intubated and mechanically ventilated. She is on assist control rate of 20 tidal volume 375 FiO2 45% and PEEP is down to 8. Patient is status post tracheostomy. She is on propofol at 45, today and planning to hopefully consider still placing the patient on pressure support of 12 and CPAP with 8 pressure. Patient remains on enteral feeding, she has a PEG tube in place, she is status post tracheostomy. Her ABG today showed a pO2 of 66 pCO2 47 pH of 7.53. WBC count is 14.7 hemoglobin 11.4. Renal profile is normal. Patient continues to have a central line in place, and I will recommend a PICC line and DC central line. Dr. longopine 2 mg per hour. And again she is on propofol at 45. Patient is arousable off propofol, and she is generally weak, I plan to at least give the patient weaning trials hopefully today with a pressure support of 12 and CPAP. Chest x-ray continues show bilateral infiltrates. Remains on the COVID-19 cocktail. Remains on multivitamins. She is also on Lovenox 40 mg subcu daily, Lasix 40 mg IV push twice a day. Objective - Vital Signs Vital signs: Vital Signs Temp 98.6 F 04/11/21 12:00 Pulse 81 04/11/21 14:00 Resp 20 04/11/21 14:00 BP 128/73 04/11/21 10:30 Pulse Ox 97 04/11/21 14:00 Intake & Output 04/10/21 04/11/21 04/11/21 18:59 06:59 18:59 Intake Total 1338.632 956.145 638.208 Output Total 3245 2620 2380 Balance -1906.368 -1663.855 -1741.792 Weight 87.1 kg 82.7 kg Intake: IV 406 312 246 Ampicillin-Sulbactam 1.5 100 50 gm In Sodium Chloride 0.9 % 50 ml @ 100 mls/hr IVPB Q6HR [facility] Rx#:[id number] Sodium Chloride 0.9% 1, 240 240 160 000 ml @ 20 mls/hr IV . Q24H [facility] Rx#:[id number] pressure bag 66 72 36 Intake, IV Titration 536.632 307.145 127.208 Amount Clevidipine Butyrate 25 4.467 57.333 mg In Empty Bag 1 bag @ 1 MG/HR 2 mls/hr IV .Q24H [facility] Rx#:[id number] fentaNYL (PF). 1,000 mcg 149.515 In Sodium Chloride 0.9% 80 ml @ 0.5 MCG/KG/HR 3. 515 mls/hr IV .Q24H [facility] Rx#:[id number] propofoL 1,000 mg In 382.650 249.812 127.208 Empty Bag 1 bag @ Titrate IV .Q0M [facility] Rx#: [id number] Tube Feeding 266 247 145 Other 130 90 120 Output: Urine 3245 2620 2380 Other: Voiding Method Indwelling Catheter Indwelling Catheter ABP, PAP, CO, CI - Last Documented Arterial Blood Pressure 110/60 - Exam GENERAL EXAM: Arousable, in no distress, remains on mechanical ventilation. HEAD: Normocephalic/atraumatic. ENT: PERRLA, EOMI, nonicteric, masses, no JVD, left subclavian central line is noted. CHEST: No chest wall deformity. Symmetrical expansion. LUNGS: Records and rales at the bases. CVS: Regular rate and rhythm, normal S1 and S2, no gallops, no murmurs, no rubs ABDOMEN: Soft, nontender. No hepatosplenomegaly, normal bowel sounds, no guarding or rigidity. Mid epigastric PEG tube is in place, incision site is clean dry and intact EXTREMITIES: No clubbing, nonpitting generalized edema and upper and lower extremities, and abdomen no cyanosis, 2+ pulses and upper and lower extremities. MUSCULOSKELETAL: Muscle strength and tone normal. In: No rashes. CENTRAL NERVOUS SYSTEM: He dated but arousable, follows simple instructions. - Labs CBC & Chem 7: 04/11/21 04:15 04/11/21 04:15 Labs: Abnormal Lab Results - Last 24 Hours (Table) 04/10/21 04/10/21 04/10/21 Range/Units 15:09 17:56 23:35 WBC (3.8-10.6) k/uL Plt Count (150-450) k/uL Neutrophils # (1.3-7.7) k/uL D-Dimer 2.88 H (<0.60) mg/L FEU ABG pH (7.35-7.45) ABG pCO2 (35-45) mmHg ABG pO2 (83-108) mmHg ABG HCO3 (21-25) mmol/L ABG Total CO2 (19-24) mmol/L Sodium (137-145) mmol/L Potassium (3.5-5.1) mmol/L Chloride (98-107) mmol/L Carbon Dioxide (22-30) mmol/L Creatinine (0.52-1.04) mg/dL Glucose (74-99) mg/dL POC Glucose (mg/dL) 204 H 149 H (75-99) mg/dL ALT (4-34) U/L Alkaline Phosphatase (38-126) U/L Lactate Dehydrogenase (313-618) U/L C-Reactive Protein (<1.0) mg/dL Total Protein (6.3-8.2) g/dL Albumin (3.5-5.0) g/dL 04/11/21 04/11/21 04/11/21 Range/Units 04:15 04:15 04:15 WBC 14.7 H (3.8-10.6) k/uL Plt Count 633 H (150-450) k/uL Neutrophils # 10.8 H (1.3-7.7) k/uL D-Dimer 4.27 H (<0.60) mg/L FEU ABG pH (7.35-7.45) ABG pCO2 (35-45) mmHg ABG pO2 (83-108) mmHg ABG HCO3 (21-25) mmol/L ABG Total CO2 (19-24) mmol/L Sodium 133 L (137-145) mmol/L Potassium 3.3 L (3.5-5.1) mmol/L Chloride 92 L (98-107) mmol/L Carbon Dioxide 35 H (22-30) mmol/L Creatinine 0.43 L (0.52-1.04) mg/dL Glucose 175 H (74-99) mg/dL POC Glucose (mg/dL) (75-99) mg/dL ALT 35 H (4-34) U/L Alkaline Phosphatase 134 H (38-126) U/L Lactate Dehydrogenase 717 H (313-618) U/L C-Reactive Protein 5.7 H (<1.0) mg/dL Total Protein 5.7 L (6.3-8.2) g/dL Albumin 2.5 L (3.5-5.0) g/dL 04/11/21 04/11/21 04/11/21 Range/Units 05:25 05:50 11:29 WBC (3.8-10.6) k/uL Plt Count (150-450) k/uL Neutrophils # (1.3-7.7) k/uL D-Dimer (<0.60) mg/L FEU ABG pH 7.53 H (7.35-7.45) ABG pCO2 47 H (35-45) mmHg ABG pO2 66 L (83-108) mmHg ABG HCO3 39 H (21-25) mmol/L ABG Total CO2 41 H (19-24) mmol/L Sodium (137-145) mmol/L Potassium (3.5-5.1) mmol/L Chloride (98-107) mmol/L Carbon Dioxide (22-30) mmol/L Creatinine (0.52-1.04) mg/dL Glucose (74-99) mg/dL POC Glucose (mg/dL) 179 H 185 H (75-99) mg/dL ALT (4-34) U/L Alkaline Phosphatase (38-126) U/L Lactate Dehydrogenase (313-618) U/L C-Reactive Protein (<1.0) mg/dL Total Protein (6.3-8.2) g/dL Albumin (3.5-5.0) g/dL Assessment and Plan Assessment: Impression: Acute hypoxic respiratory failure secondary to COVID-19 pneumonia, requiring intubation and mechanical ventilation on 03/25/21, patient received tracheostomy on 04/05 remains intubated and mechanically ventilated. Her ventilator settings were noted earlier. And no changes were made I am considering a pressure support mode of mechanical ventilation on this patient and possibly CPAP. Elevated inflammatory markers and elevated d-dimer secondary to above. Type 2 diabetes. Hypothyroidism. Dyslipidemia. Pneumomediastinum, resolved. Recommendation: Continue ventilatory support. Sitter and weaning mode of mechanical ventilation with pressure support and CPAP if possible today. But has to be off sedation. Nutritional support/enteral feeding GI prophylaxis. Continue Lovenox Continue COVID-19 cocktail. Keep patient off fentanyl infusion and use Dilaudid as needed Continue to monitor labs. Continue Lovenox. Continue diuretics as the patient seems to be in positive fluid balance. Remains critically ill. Critical care time is over 30 minutes. Time with Patient: Greater than 30
--- NOTE | 2021-04-11 14:49 | IR ---
PICC LINE PLACEMENT: HISTORY: Infection requiring long-term antibiotic therapy PROCEDURE: Ultrasound guidance of PICC line placement. COMPLICATIONS: None ANESTHESIA: 1. 1% Lidocaine locally. FINDINGS/TECHNIQUE: The procedure was explained to the patient. The risks, complications, benefits and alternatives were discussed and any questions were answered. Informed consent was obtained. The patient was placed supine on the fluoroscopic table and prepped and draped in the usual sterile fash ion. Utilizing a 21 gauge needle and sonographic guidance, access in the right cephalic vein was ac hieved and there is placement of a 0.018 guidewire. The vein is patent. A 5-F. sheath was placed ov er the guidewire. The guidewire and dilator were removed and a 5-F. Double lumen PICC line was place d through the sheath with the chest x-ray confirming the tip at the level of the SVC. The sheath was removed, the catheter was flushed and sutured into position. The patient was stable throughout the procedure and remained stable upon discharge from the Department of Radiology. The vein puncture was patent under ultrasound. A contreras scale image was obtained to document patency of the vein punctured. All elements of the maximal barrier technique were utilized. IMPRESSION: 1. Successful PICC line placement under ultrasound performed bedside within the ICU.
[2021-04-11 15:17] LABS: Magnesium 1.7 mg/dL (1.6-2.3); Potassium 3.8 mmol/L (3.5-5.1)
[2021-04-11] MEDS: MAGNESIUM SULFATE-D5W PMX 1 GM in DEXTROSE/WATER 1 100ML.BAG IVPB SCH ×2 (16:07→17:19)
[2021-04-11] MEDS ORDERED: POTASSIUM BICARB-CITRIC ACID 25 MEQ TABLET.EFF PO SCH (16:30)
[2021-04-11 17:59] LABS: Glucose,Whole Blood 201 mg/dL (75-99)
[2021-04-11] MEDS: lisinopriL 10 MG TAB PO SCH (20:04)
[2021-04-11] MEDS: ATORVASTATIN 40 MG TAB PO SCH (20:04)
[2021-04-11] MEDS: NOREPINEPHRINE 8 MG in SODIUM CHLORIDE 0.9% 250 ML IV SCH (23:15)
[2021-04-11 23:16] LABS: Glucose,Whole Blood 124 mg/dL (75-99)
[2021-04-11] MEDS: SODIUM CHLORIDE 0.9% 1,000 ML IV SCH (23:16)
[2021-04-12 05:07] LABS: Basophils % (A) 0 %; Eosinophils # (A) 0.4 k/uL (0-0.7); Eosinophils % (A) 2 %; HCT 36.3 % (34.0-46.0); HGB 11.5 gm/dL (11.4-16.0); Lymphocytes # (A) 1.8 k/uL (1.0-4.8); Lymphocytes % (A) 11 %; MCHC 31.7 g/dL (31.0-37.0); MCV 91.4 fL (80.0-100.0); Mean Platelet Volume 7.6; Monocytes % (A) 7 %; Neutrophils # (A) 12.4 k/uL (1.3-7.7); Neutrophils % (A) 78 %; Platelet Count 621 k/uL (150-450); RBC 3.98 m/uL (3.80-5.40); RDW 14.8 % (11.5-15.5)
[2021-04-12] MEDS: AMPICILLIN-SULBACTAM 1.5 GM in SODIUM CHLORIDE 0.9% 50 ML IVPB SCH ×3 (05:19→17:25)
[2021-04-12 05:21] LABS: ABG Base Excess 14.5 mmol/L; ABG HCO3 37 mmol/L (21-25); ABG Oxygen Saturation 97.4 % (94-97); ABG PCO2 41 mmHg (35-45); ABG PO2 84 mmHg (83-108); ABG TCO2 38 mmol/L (19-24)
[2021-04-12 05:31] LABS: ALT 33 U/L (4-34); AST 29 U/L (14-36); African American GFR (CKD) >90 (>60 ml/min/1.73 sqM); Albumin 2.6 g/dL (3.5-5.0); Alkaline Phosphatase 130 U/L (38-126); Anion Gap 10 mmol/L; Blood Urea Nitrogen 14 mg/dL (7-17); C Reactive Protein 5.7 mg/dL (<1.0); Calcium 8.6 mg/dL (8.4-10.2); Carbon Dioxide 33 mmol/L (22-30); Chloride 91 mmol/L (98-107); Glucose 199 mg/dL (74-99); LDH 752 U/L (313-618); Magnesium 1.9 mg/dL (1.6-2.3); Non-African American GFR(CKD) >90 (>60 ml/min/1.73 sqM); Sodium 134 mmol/L (137-145); Total Bilirubin 0.5 mg/dL (0.2-1.3); Total Protein 5.9 g/dL (6.3-8.2)
[2021-04-12 06:06] LABS: Glucose,Whole Blood 187 mg/dL (75-99)
[2021-04-12 06:16] LABS: ABG PH 7.56 (7.35-7.45); Allen Test Performed? no
[2021-04-12] MEDS: POTASSIUM CHLORIDE ER 20 MEQ TAB.ER PO SCH ×3 (06:17→10:45)
[2021-04-12] MEDS: INSULIN DETEMIR (LEVEMIR) 100 UNIT/ML SYR SQ SCH (06:17)
[2021-04-12] MEDS: LEVOTHYROXINE 75 MCG TAB PO SCH (06:17)
[2021-04-12] MEDS: INSULIN ASPART (NovoLOG) 100 UNIT/ML VIAL SQ SCH ×3 (06:18→18:48)
[2021-04-12] MEDS: ALBUTEROL HFA INHALER INHALATION SCH ×4 (07:26→21:17)
[2021-04-12] MEDS: CLEVIDIPINE BUTYRATE 25 MG in EMPTY BAG 1 BAG IV PRN (07:48)
--- NOTE | 2021-04-12 08:07 | XR ---
EXAMINATION TYPE: XR chest 1V portable DATE OF EXAM: 04/12/2021 COMPARISON: Chest x-ray 04/11/2021 HISTORY: Covid pneumonia TECHNIQUE: Single frontal view of the chest is obtained. FINDINGS: Tracheostomy tube is overlying the tracheal air column. There are overlying artifacts. PIC C line has changed configuration, there is a loop within the proximal portion extending likely into t he region of the right internal jugular vein, distal tip overlies the superior vena cava. Left subcla vian catheter seen on prior exam may have been removed in the interval, correlate. Cardiac mediastina l silhouette is stable. Bilateral airspace disease is noted, lung volumes are low. No evident pneumot horax or pleural effusion. Suspect a gastrostomy tube is in place. IMPRESSION: Findings of the central venous catheters as described. Pleural-parenchymal changes are s imilar to prior exam.
[2021-04-12] MEDS: ZINC SULFATE 220 MG CAP PO SCH (08:17)
[2021-04-12] MEDS: DEXAMETHASONE SOD PHOSPHATE 10 MG/ML 1 ML VIAL IVP SCH (08:17)
[2021-04-12] MEDS: ASCORBIC ACID 500 MG TAB PO SCH (08:17)
[2021-04-12] MEDS: ENOXAPARIN 40 MG/0.4 ML SYRINGE SQ SCH (08:17)
[2021-04-12] MEDS: CHLORHEXIDINE GLUCONATE 15 ML CUP MUCOUS MEM SCH ×2 (08:17→20:35)
[2021-04-12] MEDS: CHOLECALCIFEROL 25 MCG (1000 IU) TABLET PO SCH (08:17)
[2021-04-12] MEDS: FUROSEMIDE 10 MG/ML 4 ML VIAL IV SCH ×2 (08:17→20:35)
[2021-04-12] MEDS: PANTOPRAZOLE 40 MG/10 ML VIAL IVP SCH (08:18)
[2021-04-12 11:50] LABS: Glucose,Whole Blood 216 mg/dL (75-99)
--- NOTE | 2021-04-12 11:56 | P.PN ---
Subjective Progress Note Date: 04/12/21 Principal diagnosis: Acute hypoxic respiratory failure secondary to COVID-19 pneumonia 03/24/2021, the patient is having more difficulty in breathing. This morning, the patient started having worsening shortness of breath and worsening and hypoxemia. The patient is currently on BiPAP at a pressure of 14/8 cm of water. He is quite tachypneic. The respiratory rate is around 34 times a minute and her minute ventilation is above 24 L per minute. She is quite tachypneic and short of breath and she is also tachycardic. Note that, the patient's condition was gradually getting worse over the past several days. The patient was on 9 L of oxygen by nasal cannula and there was progressive rise in her oxygen requirements and she was brought up to 15 L and later on to 100% nonrebreather facemask and currently she is on a BiPAP. At the same time, the patient is being treated with a combination of Decadron and Baricitinib per protocol. She is on Lovenox for DVT prophylaxis 40 mg subcu daily basis. This is consistent with COVID 19 related pneumonia. While on the BiPAP, she underwent a blood gas that showed a pH of 7.46 with a pCO2 of 37 and pO2 of 50. Subsequently, her oxygen saturations improved. Her d-dimer from yesterday was more than 34. Her CRP level was 14 and her LDH level was 657. Rest of the blood work shows a potassium level of 3.4 with a sodium of 140. Reevaluated today on 03/25/2021, patient was transferred to the ICU this morning, she was placed on 100% FiO2, and BiPAP, and her O2 saturations remained marginal. I evaluated the patient in the ICU, and she was made aware that her condition seems to be worsening and she will likely end up requiring intubation and mechanical ventilation. An hour later, the patient decompensated, and she required to be intubated and mechanically ventilated. Patient was placed initially on 100% FiO2, EPAP of 12, tidal volume is 400, rate of 30. ABG is pending. Her d-dimer is 34. The left lites are normal LDH 879 C-reactive protein 15.6. CT angiogram few days ago showed no evidence of pulmonary embo lism. Venous Doppler negative for DVT Reevaluated today on 03/26/2021, patient remains in the ICU, intubated and mechanically ventilated. Patient is on assist control rate of 3 to tidal volume 400 FiO2 80%, PEEP of 14. Changes were made including tidal volume decreased to 375 FiO2 decreased to 70% PEEP increased to 16. Rate remained the same at 32. Patient is on propofol at 50 fentanyl at 0.5 Nimbex at 1.5. She is also on enteral feeding. She is hemodynamically stable, not requiring any pressors. Chest x-ray continues to show bilateral interstitial infiltrates consistent with COVID-19 pneumonia. Patient had negative workup for pulmonary embolism and negative workup for venous Doppler upon admission. ABG today showed a pO2 of 106 pCO2 of 40 pH of 7.39. Her CBC is relatively normal electrolytes are normal renal profile is normal. Reevaluated today on 03/27/2021, remains in the ICU intubated and mechanically ventilated. She is presently on assist control rate of 3 to tidal volume 375 PEEP is 16, FiO2 60%. ABG showed a pO2 of 67 pCO2 44 pH of 7.30. Hence I cut down her FiO2 to 55%. Patient remains on propofol at 40 mcg/kg/m norepinephrine at 0.05 mcg/kg/m Nimbex at 1.5 mcg/kg/ minute, and fentanyl 0.5 mcg/kg/h. Patient remains sedated and paralyzed, her ABG this morning showed a pO2 of 67 pCO2 of 44 pH of 7.30, FiO2 decreased to 55%. However as I was dictating this note, I was notified by the nurse that she developed subcu emphysema, and I'm recommending a stat chest x-ray, to determine if the patient has a new onset normal mediastinum or possibly a pneumothorax. Chest x-ray is pending at the time of this dictation. A shunt remains on enteral feedings. She is requiring a small dose of norepinephrine for hemodynamic instability. Reevaluated today on 03/28/2021, patient remains in the ICU, intubated and mechanically ventilated. Patient is on assist control rate of 32 volume of 375 FiO2 50% PEEP of 16. ABG showed a pO2 of 67 pCO2 of 49 pH of 7.30. Patient is on IV fluid at 1 20 mL/h, up a fall 45 mcg/kg/m, Nimbex at 1.5 mcg/kg/m, fentanyl 0.5 mcg/kg/h, she is off norepinephrine. CBC showed WBC count of 11.8 hemoglobin is 12.2. Hematocrit is 39.4. Electrolytes are normal renal profile is normal. Chest x-ray continues to show bilateral infiltrates, and there is evidence of pneumomediastinum and subcutaneous emphysema. Patient remains on th e COVID-19 cocktail, she is on echo from 6 mg IV push daily she is also on Lovenox 40 mg subcu twice a day. Patient is also receiving baricitinib . Patient is also on enteral feedings. Reevaluated today on 03/29/2021, remains in the ICU, intubated and mechanically ventilated. Patient is on assist control rate of 32, FiO2 of 50% tidal volume of 375 PEEP 16, decreased down to 14 today. And increase her FiO2 to 55%. ABG showed a pO2 of 70 pCO2 49 pH of 7.33 WBC count is 16.5 hemoglobin is 12 electrolytes are normal renal profile is normal. Patient is on multiple drips including IV fluid at 120 mL/h and I cut it down to KVO she is on enteral feeding via orogastric tube. Nimbex 2 mcg/kg/m propofol 60 mcg/kg/m fentanyl 0.75 mcg/kg/h. Patient is now off norepinephrine. Chest x-ray continues to show bilateral infiltrates, and worsening subcu emphysema, hence I went ahead and placed 3 different 14-L[place] catheters, one placed in the left supraclavicular area, one in the right supraclavicular area, and one in the anterior chest wall on the left side. Mostly to decompressive subcutaneous emphysema. These were placed uneventfully, and place and a sterile field. And covered with dressing. Patient is on the COVID-19 cocktail. She is also on baricitinib Decadron 6 mg IV push daily, Lovenox 40 mg subcu twice a day, she is also on Protonix 40 mg IV push daily and zinc. Reevaluated today on 03/30/2021, patient remains in the ICU, intubated and mechanically ventilated. She remains on assist control rate of 32 tidal volume 375 FiO2 60% and I cut it down to 55% PEEP remains at 10. ABG showed a pO2 of 59 pCO2 of 39 pH of 7.44. Chest x-ray showed bilateral infiltrates, persistent subcutaneous emphysema but seems to be less compared to the previous 2 days. No evidence of pneumothorax. Remains on multiple drips including norepinephrine at 0.03 mcg/kg/m, Nimbex at 2 mcg/kg/m, fentanyl at 2.5 mcg/kg/h propofol 50 mcg/kg/m. IV fluid at 20 mL per hour. Patient is on vital AF 26 mL per hour. Chest x-ray again is not showing much of a change. Patient remains on the COVID -19 cocktail including Decadron, Lovenox, Protonix, and she is also on baricitinib Reevaluated today on 03/31/2021, patient remains in the ICU, intubated and mechanically ventilated. She is on assist control rate of 3 to tidal volume 375 FiO2 70% and PEEP at 10 however after reviewing her ABG I recommended increasing the PEEP to 12 and I cut down her FiO2 from 70% to 65%. ABG showed a pO2 of 65 pCO2 of 39 pH of 7.30. Patient remains on Nimbex at 2 mcg/kg/m fentanyl at 2.5 mcg/kg/h propofol at 50 mcg/kg/m. She is also requiring norepinephrine at 0.08 mcg/kg/m, her blood pressure seems to be extremely labile. It is all over the chart. Today I recommended an echocardiogram, I also recommended serum cortisol level on this patient. Her chest x-ray continues to show bilateral infiltrates and subcu emphysema. However the subcu emphysema seems to be regressing. There is no evidence of pneumothorax. WBC count is 11.1 hemoglobin is 11.5 twice a normal renal profile is normal. Transaminases are slightly elevated. Yesterday the patient had positive sputum cultures for staph aureus, it was basically MSSA, hence we discontinued her baricitinib, received a dose of vancomycin, but considering the staph aureus is MSSA, will start the patient on cefepime and discontinue vancomycin and this was already discontinued yesterday. On 04/10/2021 patient seen in follow-up in the intensive care unit, she remains sedated, she has received a tracheostomy, she is connected to the ventilator on assist control mode of ventilation with a rate of 20, tidal volume is 375, FiO2 of 50% and PEEP of 10, this morning's blood gas shows pO2 of 75, pCO2 53, and pH is 7.45 and this was done on the above-mentioned vent settings, she is currently on 0.9 normal saline at a rate 20 ML per hour, Diprivan is a 55 mics per kilo per minute, and fentanyl infusion is a 2 mics per kilo per minute, she is tole rating tube feedings with vital HP at a rate of 19 with a goal of 19. Hemodynamically stable, not requiring any vasopressor support, she is in sinus rhythm with a rate of 105, slightly tachycardic, no fevers overnight, vital signs have been stable. Her peak airway pressure is 29 on the ventilator, and plateau pressure is 24, she has been getting daily dose of IV Lasix 40 mg daily, she is in -1.3 L net fluid balance over the last 24 hours. Her chest x-ray today has been reviewed showing stable bilateral interstitial alveolar infiltrates. No pneumothorax. He remains on Unasyn for evidence of emesis today in the sputum cultures. Her last sputum culture from 04/05/2021 showed MSSA. Her last pro-calcitonin from 04/08/2021 was improving from the original value, and was down to 1.59. Prevacid her labs have been reviewed, with blood cell count was 10.4, hemoglobin is 9.6, platelet count is 545, serum sodium is 134, potassium 3.7, chloride is 96, CO2 is 34, BUN is 12 creatinine 0.45, her LDH is improving and is down to 652 CRP is down to 7.4 on today's labs. Her last d-dimer from 04/07/2021 was 1.46, patient is on prophylactic dose Lovenox 40 mg daily, she remains on Decadron 6 mg daily. Lung sounds reveal coarse breath sounds, generally she remains edematous. Overall she remains an significantly positive fluid balance since admission. Very minimal secretions suctioned from her tracheostomy. Neurologically patient follows simple commands, she attempts to open her eyes this morning even on sedation, we will attempt another sedation holiday today. A very today on 04/11/21, patient remains intubated and mechanically ventilated. She is on assist control rate of 20 tidal volume 375 FiO2 45% and PEEP is down to 8. Patient is status post tracheostomy. She is on propofol at 45, today and planning to hopefully consider still placing the patient on pressure support of 12 and CPAP with 8 pressure. Patient remains on enteral feeding, she has a PEG tube in place, she is status post tracheostomy. Her ABG today showed a pO2 of 66 pCO2 47 pH of 7.53. WBC count is 14.7 hemoglobin 11.4. Renal profile is normal. Patient continues to have a central line in place, and I will recommend a PICC line and DC central line. Dr. rojasdipine 2 mg per hour. And again she is on propofol at 45. Patient is arousable off propofol, and she is generally weak, I plan to at least give the patient weaning trials hopefully today with a pressure support of 12 and CPAP. Chest x-ray continues show bilateral infiltrates. Remains on the COVID-19 cocktail. Remains on multivitamins. She is also on Lovenox 40 mg subcu daily, Lasix 40 mg IV push twice a day. Reevaluated today on 04/12/21, patient remains in the ICU, intubated and mechanically ventilated. Patient is on assist control rate of 20 tidal volume 375 FiO2 45% and PEEP is 8. A shunt remains on multiple drips including clevidipine for elevated blood pressure, she is now off propofol, and she is off fentanyl. She is receiving enteral feeding/vital AF at 10 mL per hour. Today the patient is arousable, she opens her eyes, she is follows simple instructions like wiggling toes and squeezing hands, I have tried the patient initially on a pressure support mode of mechanical ventilation, however she wasn't moving much of tidal volumes and I went ahead and recommended IMV and pressure support mode of mechanical ventilation. She is now on IMV of 8 pressure support of 14 PEEP remains at 8 she is at 45% FiO2. I recommended that we'll continue to hold sedation, I think overall the patient is showing some neurological improvement, however she is not ready to go on trach collar yet. I think the patient will be able to tolerate IMV with pressure support and we'll try to keep her on such mode of mechanical ventilation as long as tolerated. Chest x-ray is showing improvement in her infiltrates. EEG today showed a pO2 of 84 pCO2 41 pH of 7.56. WBC count is 16 hemoglobin 11.5. Electrolytes are normal except low potassium of 3.0 being corrected as per protocol. No profile is normal patient remains on the COVID-19 cocktail, she is also on Unasyn. He is on Decadron 6 mg IV push daily and Lovenox 40 mg subcu daily. Remains on Lasix at 40 mg IV push every 12 hours, she is on Dilaudid when necessary. Objective - Vital Signs Vital signs: Vital Signs Temp 99.1 F 04/12/21 08:00 Pulse 85 04/12/21 11:00 Resp 38 H 04/12/21 11:00 BP 110/78 04/12/21 06:30 Pulse Ox 96 04/12/21 11:00 Intake & Output 04/11/21 04/12/21 04/12/21 18:59 06:59 18:59 Intake Total 1229.318 657.529 417.304 Output Total 2820 1300 385 Balance -1590.682 -642.471 32.304 Weight 82.3 kg Intake: IV 388 276 115 Ampicillin-Sulbactam 1.5 100 gm In Sodium Chloride 0.9 % 50 ml @ 100 mls/hr IVPB Q6HR [facility] Rx#:[id number] Sodium Chloride 0.9% 1, 240 240 100 000 ml @ 20 mls/hr IV . Q24H [facility] Rx#:[id number] pressure bag 48 36 15 Intake, IV Titration 466.318 161.529 152.304 Amount Clevidipine Butyrate 25 50.000 45.667 50 mg In Empty Bag 1 bag @ 1 MG/HR 2 mls/hr IV .Q24H [facility]N Rx#:[id number] Magnesium Sulfate-D5w Pmx 200 1 gm In Dextrose/Water 1 100ml.bag @ 100 mls/hr IVPB Q1H [facility] Rx#: [id number] propofoL 1,000 mg In 216.318 115.862 102.304 Empty Bag 1 bag @ Titrate IV .Q0M [facility] Rx#: [id number] Tube Feeding 185 130 60 Other 190 90 90 Output: Urine 2820 1300 385 Other: Voiding Method Indwelling Catheter Indwelling Catheter Indwelling Catheter # Bowel Movements 1 1 ABP, PAP, CO, CI - Last Documented Arterial Blood Pressure 138/62 - Exam GENERAL EXAM: Arousable, in no distress, remains on mechanical ventilation. Today she was transitioned to a mode of weaning with pressure support and IMV. HEAD: Normocephalic/atraumatic. ENT: PERRLA, EOMI, nonicteric, masses, no JVD, left subclavian central line is noted. CHEST: No chest wall deformity. Symmetrical expansion. LUNGS: Records and rales at the bases. CVS: Regular rate and rhythm, normal S1 and S2, no gallops, no murmurs, no rubs ABDOMEN: Soft, nontender. No hepatosplenomegaly, normal bowel sounds, no guarding or rigidity. Mid epigastric PEG tube is in place, incision site is clean dry and intact EXTREMITIES: No clubbing, nonpitting generalized edema and upper and lower extremities, and abdomen no cyanosis, 2+ pulses and upper and lower extremities. Skin: No rashes. CENTRAL NERVOUS SYSTEM: Arousable, follows very simple instructions but seems to be generally weak. - Labs CBC & Chem 7: 04/12/21 04:55 04/12/21 04:55 Labs: Abnormal Lab Results - Last 24 Hours (Table) 04/11/21 04/11/21 04/12/21 Range/Units 17:58 23:14 04:55 WBC 16.0 H (3.8-10.6) k/uL Plt Count 621 H (150-450) k/uL Neutrophils # 12.4 H (1.3-7.7) k/uL ABG pH (7.35-7.45) ABG HCO3 (21-25) mmol/L ABG Total CO2 (19-24) mmol/L ABG O2 Saturation (94-97) % Sodium (137-145) mmol/L Potassium (3.5-5.1) mmol/L Chloride (98-107) mmol/L Carbon Dioxide (22-30) mmol/L Creatinine (0.52-1.04) mg/dL Glucose (74-99) mg/dL POC Glucose (mg/dL) 201 H 124 H (75-99) mg/dL Alkaline Phosphatase (38-126) U/L Lactate Dehydrogenase (313-618) U/L C-Reactive Protein (<1.0) mg/dL Total Protein (6.3-8.2) g/dL Albumin (3.5-5.0) g/dL 04/12/21 04/12/21 04/12/21 Range/Units 04:55 05:20 06:05 WBC (3.8-10.6) k/uL Plt Count (150-450) k/uL Neutrophils # (1.3-7.7) k/uL ABG pH 7.56 H* (7.35-7.45) ABG HCO3 37 H (21-25) mmol/L ABG Total CO2 38 H (19-24) mmol/L ABG O2 Saturation 97.4 H (94-97) % Sodium 134 L (137-145) mmol/L Potassium 3.0 L (3.5-5.1) mmol/L Chloride 91 L (98-107) mmol/L Carbon Dioxide 33 H (22-30) mmol/L Creatinine 0.46 L (0.52-1.04) mg/dL Glucose 199 H (74-99) mg/dL POC Glucose (mg/dL) 187 H (75-99) mg/dL Alkaline Phosphatase 130 H (38-126) U/L Lactate Dehydrogenase 752 H (313-618) U/L C-Reactive Protein 5.7 H (<1.0) mg/dL Total Protein 5.9 L (6.3-8.2) g/dL Albumin 2.6 L (3.5-5.0) g/dL Assessment and Plan Assessment: Impression: Acute hypoxic respiratory failure secondary to COVID-19 pneumonia, requiring intubation and mechanical ventilation on 03/25/21, patient received tracheostomy on 04/05 remains intubated and mechanically ventilated. Her ventilator settings were noted earlier. And no changes were made I am considering a pressure support mode of mechanical ventilation on this patient and possibly CPAP. Elevated inflammatory markers and elevated d-dimer secondary to above. Type 2 diabetes. Hypothyroidism. Dyslipidemia. Pneumomediastinum, resolved. Recommendation: Continue ventilatory support. Today the patient was transitioned to pressure support mode of mechanical ventilation with IMV backup of 8, pressure support of 14, and the plan is to continue this mode until we could fully place the patient on pressure support and CPAP. And then eventually go to [facility]. Nutritional support/enteral feeding GI prophylaxis. Continue Lovenox Continue COVID-19 cocktail. Minimize sedation as much as possible. As her mental status seems to be improving. Continue to monitor labs. Continue Lovenox. Continue diuretics as the patient seems to be in positive fluid balance. Remains critically ill. Critical care time is over 30 minutes.
--- NOTE | 2021-04-12 14:15 | P.PN ---
Subjective Progress Note Date: 04/11/21 Principal diagnosis: Acute hypoxemic respiratory failure requiring intubation and mechanical ventilation COVID-19 bilateral pneumonia 65-year-old female with past medical history of diabetes mellitus, hyperlipidemia, hypertension, osteoarthritis, no smoking history presented to the ER with worsening dyspnea 10 days accompanied by loss of appetite, fatigue, cough. Denies fevers or sweats. Denies muscle aches. On admission patient was febrile with temperature 99.1, WBC 5.2, tachycardic, cachectic, maintaining O2 sats of 88% on room air. Patient's respiratory status has further worsened and currently maintaining O2 sats of mid 90s on 3 L nasal cannula. Displays exertional dyspnea after ambulating from BR. Coronavirus PCR positive. D-dimer 0.39, LDH 1108, CRP 18.6. Chest x-ray reporting reticular and some minimal patchy opacity's over bilateral lower lungs, left greater than right. Hemoglobin 14.5, platelets 287. Sodium currently 132, potassium 5, BUN 27, creatinine 0.77. A.m. Accu-Chek currently being obtained, the blood sugar 231 last night. Denies chest pain, palpitations. Objective - Vital Signs Vital signs: Vital Signs Temp 99.1 F 04/11/21 08:00 Pulse 90 04/11/21 11:00 Resp 20 04/11/21 11:00 BP 128/73 04/11/21 10:30 Pulse Ox 94 L 04/11/21 11:00 Intake & Output 04/10/21 04/11/21 04/11/21 18:59 06:59 18:59 Intake Total 1338.632 956.145 422.744 Output Total 3245 2620 1305 Balance -1906.368 -1663.855 -882.256 Weight 87.1 kg 82.7 kg Intake: IV 406 312 127 Ampicillin-Sulbactam 1.5 100 gm In Sodium Chloride 0.9 % 50 ml @ 100 mls/hr IVPB Q6HR [facility] Rx#:[id number] Sodium Chloride 0.9% 1, 240 240 100 000 ml @ 20 mls/hr IV . Q24H [facility] Rx#:[id number] pressure bag 66 72 27 Intake, IV Titration 536.632 307.145 100.744 Amount Clevidipine Butyrate 25 4.467 57.333 mg In Empty Bag 1 bag @ 1 MG/HR 2 mls/hr IV .Q24H PRN Rx#:[id number] fentaNYL (PF). 1,000 mcg 149.515 In Sodium Chloride 0.9% 80 ml @ 0.5 MCG/KG/HR 3. 515 mls/hr IV .Q24H [facility] Rx#:[id number] propofoL 1,000 mg In 382.650 249.812 100.744 Empty Bag 1 bag @ Titrate IV .Q0M [facility] Rx#: [id number] Tube Feeding 266 247 105 Other 130 90 90 Output: Urine 3245 2620 1305 Other: Voiding Method Indwelling Catheter Indwelling Catheter ABP, PAP, CO, CI - Last Documented Arterial Blood Pressure 141/71 - Exam GENERAL EXAM: Arousable, in no distress, remains on mechanical ventilation. HEAD: Normocephalic/atraumatic. ENT: PERRLA, EOMI, nonicteric, masses, no JVD, left subclavian central line is noted. CHEST: No chest wall deformity. Symmetrical expansion. LUNGS: Records and rales at the bases. CVS: Regular rate and rhythm, normal S1 and S2, no gallops, no murmurs, no rubs ABDOMEN: Soft, nontender. No hepatosplenomegaly, normal bowel sounds, no g uarding or rigidity. Mid epigastric PEG tube is in place, incision site is clean dry and intact EXTREMITIES: No clubbing, nonpitting generalized edema and upper and lower extremities, and abdomen no cyanosis, 2+ pulses and upper and lower extremities. - Labs CBC & Chem 7: 04/12/21 04:55 04/12/21 04:55 Labs: Abnormal Lab Results - Last 24 Hours (Table) 04/10/21 04/10/21 04/10/21 Range/Units 03:55 11:33 15:09 WBC (3.8-10.6) k/uL Plt Count (150-450) k/uL Neutrophils # (1.3-7.7) k/uL D-Dimer 2.88 H (<0.60) mg/L FEU ABG pH (7.35-7.45) ABG pCO2 (35-45) mmHg ABG pO2 (83-108) mmHg ABG HCO3 (21-25) mmol/L ABG Total CO2 (19-24) mmol/L Sodium (137-145) mmol/L Potassium (3.5-5.1) mmol/L Chloride (98-107) mmol/L Carbon Dioxide (22-30) mmol/L Creatinine (0.52-1.04) mg/dL Glucose (74-99) mg/dL POC Glucose (mg/dL) 166 H (75-99) mg/dL ALT (4-34) U/L Alkaline Phosphatase (38-126) U/L Lactate Dehydrogenase (313-618) U/L C-Reactive Protein (<1.0) mg/dL Total Protein (6.3-8.2) g/dL Albumin (3.5-5.0) g/dL Procalcitonin 0.65 H (0.02-0.09) ng/mL 04/10/21 04/10/21 04/11/21 Range/Units 17:56 23:35 04:15 WBC 14.7 H (3.8-10.6) k/uL Plt Count 633 H (150-450) k/uL Neutrophils # 10.8 H (1.3-7.7) k/uL D-Dimer (<0.60) mg/L FEU ABG pH (7.35-7.45) ABG pCO2 (35-45) mmHg ABG pO2 (83-108) mmHg ABG HCO3 (21-25) mmol/L ABG Total CO2 (19-24) mmol/L Sodium (137-145) mmol/L Potassium (3.5-5.1) mmol/L Chloride (98-107) mmol/L Carbon Dioxide (22-30) mmol/L Creatinine (0.52-1.04) mg/dL Glucose (74-99) mg/dL POC Glucose (mg/dL) 204 H 149 H (75-99) mg/dL ALT (4-34) U/L Alkaline Phosphatase (38-126) U/L Lactate Dehydrogenase (313-618) U/L C-Reactive Protein (<1.0) mg/dL Total Protein (6.3-8.2) g/dL Albumin (3.5-5.0) g/dL Procalcitonin (0.02-0.09) ng/mL 04/11/21 04/11/21 04/11/21 Range/Units 04:15 04:15 05:25 WBC (3.8-10.6) k/uL Plt Count (150-450) k/uL Neutrophils # (1.3-7.7) k/uL D-Dimer 4.27 H (<0.60) mg/L FEU ABG pH (7.35-7.45) ABG pCO2 (35-45) mmHg ABG pO2 (83-108) mmHg ABG HCO3 (21-25) mmol/L ABG Total CO2 (19-24) mmol/L Sodium 133 L (137-145) mmol/L Potassium 3.3 L (3.5-5.1) mmol/L Chloride 92 L (98-107) mmol/L Carbon Dioxide 35 H (22-30) mmol/L Creatinine 0.43 L (0.52-1.04) mg/dL Glucose 175 H (74-99) mg/dL POC Glucose (mg/dL) 179 H (75-99) mg/dL ALT 35 H (4-34) U/L Alkaline Phosphatase 134 H (38-126) U/L Lactate Dehydrogenase 717 H (313-618) U/L C-Reactive Protein 5.7 H (<1.0) mg/dL Total Protein 5.7 L (6.3-8.2) g/dL Albumin 2.5 L (3.5-5.0) g/dL Procalcitonin (0.02-0.09) ng/mL 04/11/21 Range/Units 05:50 WBC (3.8-10.6) k/uL Plt Count (150-450) k/uL Neutrophils # (1.3-7.7) k/uL D-Dimer (<0.60) mg/L FEU ABG pH 7.53 H (7.35-7.45) ABG pCO2 47 H (35-45) mmHg ABG pO2 66 L (83-108) mmHg ABG HCO3 39 H (21-25) mmol/L ABG Total CO2 41 H (19-24) mmol/L Sodium (137-145) mmol/L Potassium (3.5-5.1) mmol/L Chloride (98-107) mmol/L Carbon Dioxide (22-30) mmol/L Creatinine (0.52-1.04) mg/dL Glucose (74-99) mg/dL POC Glucose (mg/dL) (75-99) mg/dL ALT (4-34) U/L Alkaline Phosphatase (38-126) U/L Lactate Dehydrogenase (313-618) U/L C-Reactive Protein (<1.0) mg/dL Total Protein (6.3-8.2) g/dL Albumin (3.5-5.0) g/dL Procalcitonin (0.02-0.09) ng/mL Assessment and Plan Assessment: Acute hypoxic respiratory failure secondary to COVID-19 pneumonia, requiring intubation and mechanical ventilation on 03/25/21, patient received tracheostomy on 04/05 remains intubated and mechanically ventilated. Her ventilator settings were noted earlier. And no changes were made I am considering a pressure support mode of mechanical ventilation on this patient and possibly CPAP. Elevated inflammatory markers and elevated d-dimer secondary to above. Type 2 diabetes. Hypothyroidism. Dyslipidemia. Pneumomediastinum, resolved. Recommendation: Continue ventilatory support. Sitter and weaning mode of mechanical ventilation with pressure support and CPAP if possible today. But has to be off sedation. Nutritional support/enteral feeding GI prophylaxis. Continue Lovenox Continue COVID-19 cocktail. Keep patient off fentanyl infusion and use Dilaudid as needed Continue to monitor labs. Continue Lovenox. Continue diuretics as the patient seems to be in positive fluid balance.
[2021-04-12] MEDS: MAGNESIUM SULFATE-D5W PMX 1 GM in DEXTROSE/WATER 1 100ML.BAG IVPB SCH ×2 (15:15→16:18)
[2021-04-12] MEDS: POTASSIUM BICARB-CITRIC ACID 25 MEQ TABLET.EFF PO SCH ×2 (16:18→17:26)
[2021-04-12 17:34] LABS: Glucose,Whole Blood 218 mg/dL (75-99)
[2021-04-12] MEDS: ATORVASTATIN 40 MG TAB PO SCH (20:35)
[2021-04-12] MEDS: lisinopriL 10 MG TAB PO SCH (20:35)
[2021-04-12 23:52] LABS: Glucose,Whole Blood 218 mg/dL (75-99)
[2021-04-13] MEDS: NOREPINEPHRINE 8 MG in SODIUM CHLORIDE 0.9% 250 ML IV SCH (00:16)
[2021-04-13] MEDS: AMPICILLIN-SULBACTAM 1.5 GM in SODIUM CHLORIDE 0.9% 50 ML IVPB SCH ×5 (00:17→23:06)
[2021-04-13] MEDS: INSULIN ASPART (NovoLOG) 100 UNIT/ML VIAL SQ SCH ×5 (00:25→23:54)
[2021-04-13] MEDS: SODIUM CHLORIDE 0.9% 1,000 ML IV SCH ×2 (00:25→23:07)
[2021-04-13] MEDS: CLEVIDIPINE BUTYRATE 25 MG in EMPTY BAG 1 BAG IV PRN ×5 (04:33→19:54)
[2021-04-13 04:38] LABS: Basophils % (A) 0 %; Eosinophils # (A) 0.3 k/uL (0-0.7); Eosinophils % (A) 2 %; HCT 32.5 % (34.0-46.0); HGB 10.4 gm/dL (11.4-16.0); Lymphocytes # (A) 2.2 k/uL (1.0-4.8); Lymphocytes % (A) 18 %; MCH 29.6 pg (25.0-35.0); MCHC 32.2 g/dL (31.0-37.0); MCV 92.1 fL (80.0-100.0); Mean Platelet Volume 7.5; Monocytes # (A) 0.9 k/uL (0-1.0); Monocytes % (A) 7 %; Neutrophils # (A) 8.8 k/uL (1.3-7.7); Neutrophils % (A) 70 %; Platelet Count 550 k/uL (150-450); RBC 3.52 m/uL (3.80-5.40); RDW 15.1 % (11.5-15.5); WBC 12.5 k/uL (3.8-10.6)
[2021-04-13 05:24] LABS: AST 38 U/L (14-36); African American GFR (CKD) >90 (>60 ml/min/1.73 sqM); Albumin 2.4 g/dL (3.5-5.0); Anion Gap 6 mmol/L; Blood Urea Nitrogen 15 mg/dL (7-17); Calcium 8.1 mg/dL (8.4-10.2); Carbon Dioxide 36 mmol/L (22-30); Chloride 94 mmol/L (98-107); Glucose 191 mg/dL (74-99); Magnesium 2.1 mg/dL (1.6-2.3); Non-African American GFR(CKD) >90 (>60 ml/min/1.73 sqM); Potassium 3.2 mmol/L (3.5-5.1); Sodium 136 mmol/L (137-145); Total Bilirubin 0.4 mg/dL (0.2-1.3); Total Protein 5.4 g/dL (6.3-8.2)
[2021-04-13 05:25] LABS: ALT 37 U/L (4-34); Alkaline Phosphatase 114 U/L (38-126); C Reactive Protein 6.4 mg/dL (<1.0); LDH 863 U/L (313-618)
[2021-04-13 05:59] LABS: Glucose,Whole Blood 217 mg/dL (75-99)
[2021-04-13 06:15] LABS: ABG Base Excess 18.3 mmol/L; ABG PCO2 43 mmHg (35-45); ABG PO2 62 mmHg (83-108); ABG TCO2 42 mmol/L (19-24); Allen Test Performed? Yes
[2021-04-13 06:16] LABS: ABG HCO3 40 mmol/L (21-25); ABG PH 7.58 (7.35-7.45)
[2021-04-13] MEDS: INSULIN DETEMIR (LEVEMIR) 100 UNIT/ML SYR SQ SCH (06:24)
[2021-04-13] MEDS: POTASSIUM CHLORIDE 10 MEQ in WATER FOR INJECTION 1 100ML.BAG IVPB SCH ×4 (06:24→11:22)
[2021-04-13] MEDS: LEVOTHYROXINE 75 MCG TAB PO SCH (06:25)
[2021-04-13] MEDS: HYDROmorphone 1 MG/ML 1 ML SYRINGE IVP PRN (06:36)
[2021-04-13] MEDS: ENOXAPARIN 40 MG/0.4 ML SYRINGE SQ SCH (08:05)
[2021-04-13] MEDS: ACETAMINOPHEN TAB 325 MG TAB PO PRN (08:05)
[2021-04-13] MEDS: CHOLECALCIFEROL 25 MCG (1000 IU) TABLET PO SCH (08:05)
[2021-04-13] MEDS: ASCORBIC ACID 500 MG TAB PO SCH (08:05)
[2021-04-13] MEDS: ZINC SULFATE 220 MG CAP PO SCH (08:05)
[2021-04-13] MEDS: DEXAMETHASONE SOD PHOSPHATE 10 MG/ML 1 ML VIAL IVP SCH (08:06)
[2021-04-13] MEDS: CHLORHEXIDINE GLUCONATE 15 ML CUP MUCOUS MEM SCH ×2 (08:06→20:00)
[2021-04-13] MEDS: PANTOPRAZOLE 40 MG/10 ML VIAL IVP SCH (08:06)
[2021-04-13] MEDS: FUROSEMIDE 10 MG/ML 4 ML VIAL IV SCH ×2 (08:06→20:00)
--- NOTE | 2021-04-13 08:06 | XR ---
EXAMINATION TYPE: XR chest 1V portable DATE OF EXAM: 04/13/2021 COMPARISON: 04/12/2021 HISTORY: 65 years Female. STUDY INDICATION GIVEN: covid . TECHNIQUE: AP chest radiograph IMPRESSION: Tracheostomy stable in position. The right upper extremity line tip is stable in the inferior SVC wit h a curl in the right upper neck. Bilateral airspace and interstitial opacities again seen with slight improvement. No pneumothorax or large effusion. The heart is prominent in size with no significant change since prior. The osseous structures are stable compared to prior.
[2021-04-13] MEDS: ALBUTEROL HFA INHALER INHALATION SCH ×4 (08:58→21:32)
--- NOTE | 2021-04-13 11:19 | P.PN ---
Subjective Progress Note Date: 04/13/21 Principal diagnosis: Acute hypoxic respiratory failure secondary to COVID-19 pneumonia 03/24/2021, the patient is having more difficulty in breathing. This morning, the patient started having worsening shortness of breath and worsening and hypoxemia. The patient is currently on BiPAP at a pressure of 14/8 cm of water. He is quite tachypneic. The respiratory rate is around 34 times a minute and her minute ventilation is above 24 L per minute. She is quite tachypneic and short of breath and she is also tachycardic. Note that, the patient's condition was gradually getting worse over the past several days. The patient was on 9 L of oxygen by nasal cannula and there was progressive rise in her oxygen requirements and she was brought up to 15 L and later on to 100% nonrebreather facemask and currently she is on a BiPAP. At the same time, the patient is being treated with a combination of Decadron and Baricitinib per protocol. She is on Lovenox for DVT prophylaxis 40 mg subcu daily basis. This is consistent with COVID 19 related pneumonia. While on the BiPAP, she underwent a blood gas that showed a pH of 7.46 with a pCO2 of 37 and pO2 of 50. Subsequently, her oxygen saturations improved. Her d-dimer from yesterday was more than 34. Her CRP level was 14 and her LDH level was 657. Rest of the blood work shows a potassium level of 3.4 with a sodium of 140. Reevaluated today on 03/25/2021, patient was transferred to the ICU this morning, she was placed on 100% FiO2, and BiPAP, and her O2 saturations remained marginal. I evaluated the patient in the ICU, and she was made aware that her condition seems to be worsening and she will likely end up requiring intubation and mechanical ventilation. An hour later, the patient decompensated, and she required to be intubated and mechanically ventilated. Patient was placed initially on 100% FiO2, EPAP of 12, tidal volume is 400, rate of 30. ABG is pending. Her d-dimer is 34. The left lites are normal LDH 879 C-reactive protein 15.6. CT angiogram few days ago showed no evidence of pulmonary embo lism. Venous Doppler negative for DVT Reevaluated today on 03/26/2021, patient remains in the ICU, intubated and mechanically ventilated. Patient is on assist control rate of 3 to tidal volume 400 FiO2 80%, PEEP of 14. Changes were made including tidal volume decreased to 375 FiO2 decreased to 70% PEEP increased to 16. Rate remained the same at 32. Patient is on propofol at 50 fentanyl at 0.5 Nimbex at 1.5. She is also on enteral feeding. She is hemodynamically stable, not requiring any pressors. Chest x-ray continues to show bilateral interstitial infiltrates consistent with COVID-19 pneumonia. Patient had negative workup for pulmonary embolism and negative workup for venous Doppler upon admission. ABG today showed a pO2 of 106 pCO2 of 40 pH of 7.39. Her CBC is relatively normal electrolytes are normal renal profile is normal. Reevaluated today on 03/27/2021, remains in the ICU intubated and mechanically ventilated. She is presently on assist control rate of 3 to tidal volume 375 PEEP is 16, FiO2 60%. ABG showed a pO2 of 67 pCO2 44 pH of 7.30. Hence I cut down her FiO2 to 55%. Patient remains on propofol at 40 mcg/kg/m norepinephrine at 0.05 mcg/kg/m Nimbex at 1.5 mcg/kg/ minute, and fentanyl 0.5 mcg/kg/h. Patient remains sedated and paralyzed, her ABG this morning showed a pO2 of 67 pCO2 of 44 pH of 7.30, FiO2 decreased to 55%. However as I was dictating this note, I was notified by the nurse that she developed subcu emphysema, and I'm recommending a stat chest x-ray, to determine if the patient has a new onset normal mediastinum or possibly a pneumothorax. Chest x-ray is pending at the time of this dictation. A shunt remains on enteral feedings. She is requiring a small dose of norepinephrine for hemodynamic instability. Reevaluated today on 03/28/2021, patient remains in the ICU, intubated and mechanically ventilated. Patient is on assist control rate of 32 volume of 375 FiO2 50% PEEP of 16. ABG showed a pO2 of 67 pCO2 of 49 pH of 7.30. Patient is on IV fluid at 1 20 mL/h, up a fall 45 mcg/kg/m, Nimbex at 1.5 mcg/kg/m, fentanyl 0.5 mcg/kg/h, she is off norepinephrine. CBC showed WBC count of 11.8 hemoglobin is 12.2. Hematocrit is 39.4. Electrolytes are normal renal profile is normal. Chest x-ray continues to show bilateral infiltrates, and there is evidence of pneumomediastinum and subcutaneous emphysema. Patient remains on th e COVID-19 cocktail, she is on echo from 6 mg IV push daily she is also on Lovenox 40 mg subcu twice a day. Patient is also receiving baricitinib . Patient is also on enteral feedings. Reevaluated today on 03/29/2021, remains in the ICU, intubated and mechanically ventilated. Patient is on assist control rate of 32, FiO2 of 50% tidal volume of 375 PEEP 16, decreased down to 14 today. And increase her FiO2 to 55%. ABG showed a pO2 of 70 pCO2 49 pH of 7.33 WBC count is 16.5 hemoglobin is 12 electrolytes are normal renal profile is normal. Patient is on multiple drips including IV fluid at 120 mL/h and I cut it down to KVO she is on enteral feeding via orogastric tube. Nimbex 2 mcg/kg/m propofol 60 mcg/kg/m fentanyl 0.75 mcg/kg/h. Patient is now off norepinephrine. Chest x-ray continues to show bilateral infiltrates, and worsening subcu emphysema, hence I went ahead and placed 3 different 14-Austrian catheters, one placed in the left supraclavicular area, one in the right supraclavicular area, and one in the anterior chest wall on the left side. Mostly to decompressive subcutaneous emphysema. These were placed uneventfully, and place and a sterile field. And covered with dressing. Patient is on the COVID-19 cocktail. She is also on baricitinib Decadron 6 mg IV push daily, Lovenox 40 mg subcu twice a day, she is also on Protonix 40 mg IV push daily and zinc. Reevaluated today on 03/30/2021, patient remains in the ICU, intubated and mechanically ventilated. She remains on assist control rate of 32 tidal volume 375 FiO2 60% and I cut it down to 55% PEEP remains at 10. ABG showed a pO2 of 59 pCO2 of 39 pH of 7.44. Chest x-ray showed bilateral infiltrates, persistent subcutaneous emphysema but seems to be less compared to the previous 2 days. No evidence of pneumothorax. Remains on multiple drips including norepinephrine at 0.03 mcg/kg/m, Nimbex at 2 mcg/kg/m, fentanyl at 2.5 mcg/kg/h propofol 50 mcg/kg/m. IV fluid at 20 mL per hour. Patient is on vital AF 26 mL per hour. Chest x-ray again is not showing much of a change. Patient remains on the COVID -19 cocktail including Decadron, Lovenox, Protonix, and she is also on baricitinib Reevaluated today on 03/31/2021, patient remains in the ICU, intubated and mechanically ventilated. She is on assist control rate of 3 to tidal volume 375 FiO2 70% and PEEP at 10 however after reviewing her ABG I recommended increasing the PEEP to 12 and I cut down her FiO2 from 70% to 65%. ABG showed a pO2 of 65 pCO2 of 39 pH of 7.30. Patient remains on Nimbex at 2 mcg/kg/m fentanyl at 2.5 mcg/kg/h propofol at 50 mcg/kg/m. She is also requiring norepinephrine at 0.08 mcg/kg/m, her blood pressure seems to be extremely labile. It is all over the chart. Today I recommended an echocardiogram, I also recommended serum cortisol level on this patient. Her chest x-ray continues to show bilateral infiltrates and subcu emphysema. However the subcu emphysema seems to be regressing. There is no evidence of pneumothorax. WBC count is 11.1 hemoglobin is 11.5 twice a normal renal profile is normal. Transaminases are slightly elevated. Yesterday the patient had positive sputum cultures for staph aureus, it was basically MSSA, hence we discontinued her baricitinib, received a dose of vancomycin, but considering the staph aureus is MSSA, will start the patient on cefepime and discontinue vancomycin and this was already discontinued yesterday. On 04/10/2021 patient seen in follow-up in the intensive care unit, she remains sedated, she has received a tracheostomy, she is connected to the ventilator on assist control mode of ventilation with a rate of 20, tidal volume is 375, FiO2 of 50% and PEEP of 10, this morning's blood gas shows pO2 of 75, pCO2 53, and pH is 7.45 and this was done on the above-mentioned vent settings, she is currently on 0.9 normal saline at a rate 20 ML per hour, Diprivan is a 55 mics per kilo per minute, and fentanyl infusion is a 2 mics per kilo per minute, she is tole rating tube feedings with vital HP at a rate of 19 with a goal of 19. Hemodynamically stable, not requiring any vasopressor support, she is in sinus rhythm with a rate of 105, slightly tachycardic, no fevers overnight, vital signs have been stable. Her peak airway pressure is 29 on the ventilator, and plateau pressure is 24, she has been getting daily dose of IV Lasix 40 mg daily, she is in -1.3 L net fluid balance over the last 24 hours. Her chest x-ray today has been reviewed showing stable bilateral interstitial alveolar infiltrates. No pneumothorax. He remains on Unasyn for evidence of emesis today in the sputum cultures. Her last sputum culture from 04/05/2021 showed MSSA. Her last pro-calcitonin from 04/08/2021 was improving from the original value, and was down to 1.59. Prevacid her labs have been reviewed, with blood cell count was 10.4, hemoglobin is 9.6, platelet count is 545, serum sodium is 134, potassium 3.7, chloride is 96, CO2 is 34, BUN is 12 creatinine 0.45, her LDH is improving and is down to 652 CRP is down to 7.4 on today's labs. Her last d-dimer from 04/07/2021 was 1.46, patient is on prophylactic dose Lovenox 40 mg daily, she remains on Decadron 6 mg daily. Lung sounds reveal coarse breath sounds, generally she remains edematous. Overall she remains an significantly positive fluid balance since admission. Very minimal secretions suctioned from her tracheostomy. Neurologically patient follows simple commands, she attempts to open her eyes this morning even on sedation, we will attempt another sedation holiday today. A very today on 04/11/21, patient remains intubated and mechanically ventilated. She is on assist control rate of 20 tidal volume 375 FiO2 45% and PEEP is down to 8. Patient is status post tracheostomy. She is on propofol at 45, today and planning to hopefully consider still placing the patient on pressure support of 12 and CPAP with 8 pressure. Patient remains on enteral feeding, she has a PEG tube in place, she is status post tracheostomy. Her ABG today showed a pO2 of 66 pCO2 47 pH of 7.53. WBC count is 14.7 hemoglobin 11.4. Renal profile is normal. Patient continues to have a central line in place, and I will recommend a PICC line and DC central line. Dr. rojasdipine 2 mg per hour. And again she is on propofol at 45. Patient is arousable off propofol, and she is generally weak, I plan to at least give the patient weaning trials hopefully today with a pressure support of 12 and CPAP. Chest x-ray continues show bilateral infiltrates. Remains on the COVID-19 cocktail. Remains on multivitamins. She is also on Lovenox 40 mg subcu daily, Lasix 40 mg IV push twice a day. Reevaluated today on 04/12/21, patient remains in the ICU, intubated and mechanically ventilated. Patient is on assist control rate of 20 tidal volume 375 FiO2 45% and PEEP is 8. A shunt remains on multiple drips including clevidipine for elevated blood pressure, she is now off propofol, and she is off fentanyl. She is receiving enteral feeding/vital AF at 10 mL per hour. Today the patient is arousable, she opens her eyes, she is follows simple instructions like wiggling toes and squeezing hands, I have tried the patient initially on a pressure support mode of mechanical ventilation, however she wasn't moving much of tidal volumes and I went ahead and recommended IMV and pressure support mode of mechanical ventilation. She is now on IMV of 8 pressure support of 14 PEEP remains at 8 she is at 45% FiO2. I recommended that we'll continue to hold sedation, I think overall the patient is showing some neurological improvement, however she is not ready to go on trach collar yet. I think the patient will be able to tolerate IMV with pressure support and we'll try to keep her on such mode of mechanical ventilation as long as tolerated. Chest x-ray is showing improvement in her infiltrates. EEG today showed a pO2 of 84 pCO2 41 pH of 7.56. WBC count is 16 hemoglobin 11.5. Electrolytes are normal except low potassium of 3.0 being corrected as per protocol. No profile is normal patient remains on the COVID-19 cocktail, she is also on Unasyn. He is on Decadron 6 mg IV push daily and Lovenox 40 mg subcu daily. Remains on Lasix at 40 mg IV push every 12 hours, she is on Dilaudid when necessary. Reevaluated today on 04/13/2021, patient remains in the ICU, intubated and mechanically ventilated. Patient was placed yesterday on pressure support mode of mechanical ventilation pressure support of 14 she was given on IMV backup rate of 8, and her PEEP was kept at 8. She was on 45% and tidal volume was 375. She seemed to tolerate that quite well yesterday, and she continues to do relatively well. Patient is a bit tachypneic, but she does not seem to be in distress. Hence today I am going to recommend that we get rid of the IMV backup rate and see if she could tolerate pressure support alone may use pressure support of 14 or 16 if necessary. May or may not have to go back to an IMV ba ckup rate. ABG this morning showed a pO2 of 62 pCO2 of 43 pH of 7.58 WBC count is 12.5 hemoglobin is 10.4. Renal profile is normal potassium is a bit low being corrected. LDH is down to 863 and C-reactive protein is down to 6.4. Chest x-ray is showing slight improvement in her bilateral infiltrates. I believe overall the patient is definitely showing signs of recovery from her hypoxic respiratory failure secondary to COVID-19 pneumonia. But she is definitely not receiving the ferguson yet, and I have no plans to transfer the patient out of the ICU at this point yet and she is not yet ready to go on a trach collar. Objective - Vital Signs Vital signs: Vital Signs Temp 101.2 F H 04/13/21 08:00 Pulse 117 H 04/13/21 08:00 Resp 30 H 04/13/21 08:00 BP 124/65 04/13/21 06:30 Pulse Ox 96 04/13/21 08:00 Intake & Output 04/12/21 04/13/21 04/13/21 18:59 06:59 18:59 Intake Total 1138.304 753.801 150.533 Output Total 755 1135 110 Balance 383.304 -381.199 40.533 Weight 82.3 kg 82.5 kg Intake: IV 376 276 46 Ampicillin-Sulbactam 1.5 100 gm In Sodium Chloride 0.9 % 50 ml @ 100 mls/hr IVPB Q6HR [facility] Rx#:[id number] Sodium Chloride 0.9% 1, 240 240 40 000 ml @ 20 mls/hr IV . Q24H [facility] Rx#:[id number] pressure bag 36 36 6 Intake, IV Titration 352.304 57.801 20.533 Amount Clevidipine Butyrate 25 50 57.801 20.533 mg In Empty Bag 1 bag @ 1 MG/HR 2 mls/hr IV .Q24H [facility] Rx#:[id number] Magnesium Sulfate-D5w Pmx 200 1 gm In Dextrose/Water 1 100ml.bag @ 100 mls/hr IVPB Q1H [facility] Rx#: [id number] propofoL 1,000 mg In 102.304 Empty Bag 1 bag @ Titrate IV .Q0M [facility] Rx#: [id number] Tube Feeding 230 330 54 Other 180 90 30 Output: Urine 755 1135 110 Other: Voiding Method Indwelling Catheter Indwelling Catheter # Bowel Movements 1 ABP, PAP, CO, CI - Last Documented Arterial Blood Pressure 134/56 - Exam GENERAL EXAM: Awake, in no distress, remains on mechanical ventilation. Fran ated pressure support and IMV mode of mechanical ventilation. HEAD: Normocephalic/atraumatic. ENT: PERRLA, EOMI, nonicteric, masses, no JVD CHEST: No chest wall deformity. Symmetrical expansion. LUNGS: Records and rales at the bases. CVS: Regular rate and rhythm, normal S1 and S2, no gallops, no murmurs, no rubs ABDOMEN: Soft, nontender. No hepatosplenomegaly, normal bowel sounds, no guarding or rigidity. Mid epigastric PEG tube is in place, incision site is clean dry and intact EXTREMITIES: No clubbing, trace of bipedal edema. Skin: No rashes. CENTRAL NERVOUS SYSTEM: Awake, alert oriented 3, no gross focal deficits. Patient is generally weak however. All instructions without any difficulty. Psychiatric: Normal mood affect and normal mental status examination. - Labs CBC & Chem 7: 04/13/21 04:20 04/13/21 04:20 Labs: Abnormal Lab Results - Last 24 Hours (Table) 04/12/21 04/12/21 04/12/21 Range/Units 11:49 15:00 17:32 WBC (3.8-10.6) k/uL RBC (3.80-5.40) m/uL Hgb (11.4-16.0) gm/dL Hct (34.0-46.0) % Plt Count (150-450) k/uL Neutrophils # (1.3-7.7) k/uL ABG pH (7.35-7.45) ABG pO2 (83-108) mmHg ABG HCO3 (21-25) mmol/L ABG Total CO2 (19-24) mmol/L Sodium (137-145) mmol/L Potassium 3.2 L (3.5-5.1) mmol/L Chloride (98-107) mmol/L Carbon Dioxide (22-30) mmol/L Creatinine (0.52-1.04) mg/dL Glucose (74-99) mg/dL POC Glucose (mg/dL) 216 H 218 H (75-99) mg/dL Calcium (8.4-10.2) mg/dL AST (14-36) U/L ALT (4-34) U/L Lactate Dehydrogenase (313-618) U/L C-Reactive Protein (<1.0) mg/dL Total Protein (6.3-8.2) g/dL Albumin (3.5-5.0) g/dL 04/12/21 04/13/21 04/13/21 Range/Units 23:50 04:20 04:20 WBC 12.5 H (3.8-10.6) k/uL RBC 3.52 L (3.80-5.40) m/uL Hgb 10.4 L (11.4-16.0) gm/dL Hct 32.5 L (34.0-46.0) % Plt Count 550 H (150-450) k/uL Neutrophils # 8.8 H (1.3-7.7) k/uL ABG pH (7.35-7.45) ABG pO2 (83-108) mmHg ABG HCO3 (21-25) mmol/L ABG Total CO2 (19-24) mmol/L Sodium 136 L (137-145) mmol/L Potassium 3.2 L (3.5-5.1) mmol/L Chloride 94 L (98-107) mmol/L Carbon Dioxide 36 H (22-30) mmol/L Creatinine 0.41 L (0.52-1.04) mg/dL Glucose 191 H (74-99) mg/dL POC Glucose (mg/dL) 218 H (75-99) mg/dL Calcium 8.1 L (8.4-10.2) mg/dL AST 38 H (14-36) U/L ALT 37 H (4-34) U/L Lactate Dehydrogenase 863 H (313-618) U/L C-Reactive Protein 6.4 H (<1.0) mg/dL Total Protein 5.4 L (6.3-8.2) g/dL Albumin 2.4 L (3.5-5.0) g/dL 04/13/21 04/13/21 Range/Units 05:58 06:11 WBC (3.8-10.6) k/uL RBC (3.80-5.40) m/uL Hgb (11.4-16.0) gm/dL Hct (34.0-46.0) % Plt Count (150-450) k/uL Neutrophils # (1.3-7.7) k/uL ABG pH 7.58 H* (7.35-7.45) ABG pO2 62 L (83-108) mmHg ABG HCO3 40 H* (21-25) mmol/L ABG Total CO2 42 H (19-24) mmol/L Sodium (137-145) mmol/L Potassium (3.5-5.1) mmol/L Chloride (98-107) mmol/L Carbon Dioxide (22-30) mmol/L Creatinine (0.52-1.04) mg/dL Glucose (74-99) mg/dL POC Glucose (mg/dL) 217 H (75-99) mg/dL Calcium (8.4-10.2) mg/dL AST (14-36) U/L ALT (4-34) U/L Lactate Dehydrogenase (313-618) U/L C-Reactive Protein (<1.0) mg/dL Total Protein (6.3-8.2) g/dL Albumin (3.5-5.0) g/dL Assessment and Plan Assessment: Impression: Acute hypoxic respiratory failure secondary to COVID-19 pneumonia, requiring intubation and mechanical ventilation on 03/25/21, patient received tracheostomy on 04/05 remains intubated and mechanically ventilated. Patient has been tole rating pressure support and backup IMV mode of mechanical ventilation for the last 24 hours, may continue the same or may just continue of the IMV backup rate and keep her on pressure support only. Not quite ready to go to a trach collar yet. Elevated inflammatory markers and elevated d-dimer secondary to above. Type 2 diabetes. Hypothyroidism. Dyslipidemia. Pneumomediastinum, resolved. Recommendation: Continue ventilatory support. Pressure support/IMV. Nutritional support/enteral feeding GI prophylaxis. Continue Lovenox Continue COVID-19 cocktail. Off all sedatives and narcotics. Physical therapy to evaluate. Continue to monitor labs. Continue Lovenox. Remains critically ill. Overall improving compared to the last couple of weeks. Critical care time is over 30 minutes. Time with Patient: Greater than 30
[2021-04-13 12:16] LABS: Glucose,Whole Blood 230 mg/dL (75-99)
[2021-04-13 18:07] LABS: Glucose,Whole Blood 242 mg/dL (75-99)
[2021-04-13] MEDS: ATORVASTATIN 40 MG TAB PO SCH (20:00)
[2021-04-13] MEDS: lisinopriL 10 MG TAB PO SCH (20:00)
[2021-04-13 23:48] LABS: Glucose,Whole Blood 159 mg/dL (75-99)
[2021-04-14] MEDS: NOREPINEPHRINE 8 MG in SODIUM CHLORIDE 0.9% 250 ML IV SCH (00:18)
[2021-04-14] MEDS: CLEVIDIPINE BUTYRATE 25 MG in EMPTY BAG 1 BAG IV PRN ×2 (01:40→03:56)
[2021-04-14] MEDS: POTASSIUM CHLORIDE ER 20 MEQ TAB.ER PO SCH ×3 (02:12→03:39)
[2021-04-14] MEDS: AMPICILLIN-SULBACTAM 1.5 GM in SODIUM CHLORIDE 0.9% 50 ML IVPB SCH (05:00)
[2021-04-14 05:02] LABS: Basophils % (A) 0 %; Eosinophils # (A) 0.3 k/uL (0-0.7); Eosinophils % (A) 3 %; HCT 29.7 % (34.0-46.0); HGB 9.4 gm/dL (11.4-16.0); Hypochromasia Slight; Lymphocytes # (A) 1.4 k/uL (1.0-4.8); Lymphocytes % (A) 14 %; MCH 29.8 pg (25.0-35.0); MCHC 31.7 g/dL (31.0-37.0); Mean Platelet Volume 7.7; Monocytes # (A) 0.6 k/uL (0-1.0); Monocytes % (A) 6 %; Neutrophils % (A) 76 %; Platelet Count 498 k/uL (150-450); RBC 3.16 m/uL (3.80-5.40); RDW 14.9 % (11.5-15.5); WBC 10.6 k/uL (3.8-10.6)
[2021-04-14 05:21] LABS: ALT 34 U/L (4-34); AST 33 U/L (14-36); African American GFR (CKD) >90 (>60 ml/min/1.73 sqM); Albumin 2.3 g/dL (3.5-5.0); Alkaline Phosphatase 92 U/L (38-126); Anion Gap 2 mmol/L; Blood Urea Nitrogen 11 mg/dL (7-17); C Reactive Protein 4.6 mg/dL (<1.0); Carbon Dioxide 35 mmol/L (22-30); Chloride 96 mmol/L (98-107); Glucose 195 mg/dL (74-99); LDH 769 U/L (313-618); Non-African American GFR(CKD) >90 (>60 ml/min/1.73 sqM); Potassium 3.2 mmol/L (3.5-5.1); Sodium 133 mmol/L (137-145); Total Bilirubin 0.2 mg/dL (0.2-1.3); Total Protein 5.1 g/dL (6.3-8.2)
[2021-04-14 05:45] LABS: ABG HCO3 36 mmol/L (21-25); ABG Oxygen Saturation 98.2 % (94-97); ABG PCO2 41 mmHg (35-45); ABG PO2 91 mmHg (83-108); ABG TCO2 38 mmol/L (19-24); Allen Test Performed? Yes
[2021-04-14 05:48] LABS: ABG PH 7.56 (7.35-7.45)
[2021-04-14] MEDS: INSULIN ASPART (NovoLOG) 100 UNIT/ML VIAL SQ SCH ×3 (05:56→18:34)
[2021-04-14 05:57] LABS: Glucose,Whole Blood 197 mg/dL (75-99)
[2021-04-14] MEDS: INSULIN DETEMIR (LEVEMIR) 100 UNIT/ML SYR SQ SCH (06:01)
[2021-04-14] MEDS: LEVOTHYROXINE 75 MCG TAB PO SCH (06:01)
[2021-04-14] MEDS: POTASSIUM CHLORIDE 10 MEQ in WATER FOR INJECTION 1 100ML.BAG IVPB SCH ×4 (06:03→13:29)
[2021-04-14] MEDS: ALBUTEROL HFA INHALER INHALATION SCH ×4 (07:11→19:47)
--- NOTE | 2021-04-14 07:29 | XR ---
EXAMINATION TYPE: XR chest 1V portable DATE OF EXAM: 04/14/2021 COMPARISON: April 13, 2021 HISTORY: 65 years Female. STUDY INDICATION GIVEN: covid . TECHNIQUE: AP semiupright chest radiograph IMPRESSION: Tracheostomy and right upper extremity PICC are stable in positioning. Bilateral airspace and interstitial opacities stable in appearance on the right slightly worsened in the left upper and left lower lobes. There is decreased aeration of the left lung. No pneumothorax or large effusion. The cardiac silhouette is obscured.
[2021-04-14] MEDS: FUROSEMIDE 10 MG/ML 4 ML VIAL IV SCH ×2 (09:18→20:44)
[2021-04-14] MEDS: CHLORHEXIDINE GLUCONATE 15 ML CUP MUCOUS MEM SCH ×2 (09:18→20:43)
[2021-04-14] MEDS: CHOLECALCIFEROL 25 MCG (1000 IU) TABLET PO SCH (09:18)
[2021-04-14] MEDS: DEXAMETHASONE SOD PHOSPHATE 10 MG/ML 1 ML VIAL IVP SCH (09:18)
[2021-04-14] MEDS: ENOXAPARIN 40 MG/0.4 ML SYRINGE SQ SCH (09:19)
[2021-04-14] MEDS: ASCORBIC ACID 500 MG TAB PO SCH (09:19)
[2021-04-14] MEDS: ZINC SULFATE 220 MG CAP PO SCH (09:19)
[2021-04-14] MEDS: PANTOPRAZOLE 40 MG/10 ML VIAL IVP SCH (09:19)
--- NOTE | 2021-04-14 10:48 | P.PN ---
Subjective Progress Note Date: 04/14/21 Principal diagnosis: Acute hypoxic respiratory failure secondary to COVID-19 pneumonia 03/24/2021, the patient is having more difficulty in breathing. This morning, the patient started having worsening shortness of breath and worsening and hypoxemia. The patient is currently on BiPAP at a pressure of 14/8 cm of water. He is quite tachypneic. The respiratory rate is around 34 times a minute and her minute ventilation is above 24 L per minute. She is quite tachypneic and short of breath and she is also tachycardic. Note that, the patient's condition was gradually getting worse over the past several days. The patient was on 9 L of oxygen by nasal cannula and there was progressive rise in her oxygen requirements and she was brought up to 15 L and later on to 100% nonrebreather facemask and currently she is on a BiPAP. At the same time, the patient is being treated with a combination of Decadron and Baricitinib per protocol. She is on Lovenox for DVT prophylaxis 40 mg subcu daily basis. This is consistent with COVID 19 related pneumonia. While on the BiPAP, she underwent a blood gas that showed a pH of 7.46 with a pCO2 of 37 and pO2 of 50. Subsequently, her oxygen saturations improved. Her d-dimer from yesterday was more than 34. Her CRP level was 14 and her LDH level was 657. Rest of the blood work shows a potassium level of 3.4 with a sodium of 140. Reevaluated today on 03/25/2021, patient was transferred to the ICU this morning, she was placed on 100% FiO2, and BiPAP, and her O2 saturations remained marginal. I evaluated the patient in the ICU, and she was made aware that her condition seems to be worsening and she will likely end up requiring intubation and mechanical ventilation. An hour later, the patient decompensated, and she required to be intubated and mechanically ventilated. Patient was placed initially on 100% FiO2, EPAP of 12, tidal volume is 400, rate of 30. ABG is pending. Her d-dimer is 34. The left lites are normal LDH 879 C-reactive protein 15.6. CT angiogram few days ago showed no evidence of pulmonary embo lism. Venous Doppler negative for DVT Reevaluated today on 03/26/2021, patient remains in the ICU, intubated and mechanically ventilated. Patient is on assist control rate of 3 to tidal volume 400 FiO2 80%, PEEP of 14. Changes were made including tidal volume decreased to 375 FiO2 decreased to 70% PEEP increased to 16. Rate remained the same at 32. Patient is on propofol at 50 fentanyl at 0.5 Nimbex at 1.5. She is also on enteral feeding. She is hemodynamically stable, not requiring any pressors. Chest x-ray continues to show bilateral interstitial infiltrates consistent with COVID-19 pneumonia. Patient had negative workup for pulmonary embolism and negative workup for venous Doppler upon admission. ABG today showed a pO2 of 106 pCO2 of 40 pH of 7.39. Her CBC is relatively normal electrolytes are normal renal profile is normal. Reevaluated today on 03/27/2021, remains in the ICU intubated and mechanically ventilated. She is presently on assist control rate of 3 to tidal volume 375 PEEP is 16, FiO2 60%. ABG showed a pO2 of 67 pCO2 44 pH of 7.30. Hence I cut down her FiO2 to 55%. Patient remains on propofol at 40 mcg/kg/m norepinephrine at 0.05 mcg/kg/m Nimbex at 1.5 mcg/kg/ minute, and fentanyl 0.5 mcg/kg/h. Patient remains sedated and paralyzed, her ABG this morning showed a pO2 of 67 pCO2 of 44 pH of 7.30, FiO2 decreased to 55%. However as I was dictating this note, I was notified by the nurse that she developed subcu emphysema, and I'm recommending a stat chest x-ray, to determine if the patient has a new onset normal mediastinum or possibly a pneumothorax. Chest x-ray is pending at the time of this dictation. A shunt remains on enteral feedings. She is requiring a small dose of norepinephrine for hemodynamic instability. Reevaluated today on 03/28/2021, patient remains in the ICU, intubated and mechanically ventilated. Patient is on assist control rate of 32 volume of 375 FiO2 50% PEEP of 16. ABG showed a pO2 of 67 pCO2 of 49 pH of 7.30. Patient is on IV fluid at 1 20 mL/h, up a fall 45 mcg/kg/m, Nimbex at 1.5 mcg/kg/m, fentanyl 0.5 mcg/kg/h, she is off norepinephrine. CBC showed WBC count of 11.8 hemoglobin is 12.2. Hematocrit is 39.4. Electrolytes are normal renal profile is normal. Chest x-ray continues to show bilateral infiltrates, and there is evidence of pneumomediastinum and subcutaneous emphysema. Patient remains on th e COVID-19 cocktail, she is on echo from 6 mg IV push daily she is also on Lovenox 40 mg subcu twice a day. Patient is also receiving baricitinib . Patient is also on enteral feedings. Reevaluated today on 03/29/2021, remains in the ICU, intubated and mechanically ventilated. Patient is on assist control rate of 32, FiO2 of 50% tidal volume of 375 PEEP 16, decreased down to 14 today. And increase her FiO2 to 55%. ABG showed a pO2 of 70 pCO2 49 pH of 7.33 WBC count is 16.5 hemoglobin is 12 electrolytes are normal renal profile is normal. Patient is on multiple drips including IV fluid at 120 mL/h and I cut it down to KVO she is on enteral feeding via orogastric tube. Nimbex 2 mcg/kg/m propofol 60 mcg/kg/m fentanyl 0.75 mcg/kg/h. Patient is now off norepinephrine. Chest x-ray continues to show bilateral infiltrates, and worsening subcu emphysema, hence I went ahead and placed 3 different 14-Fijian catheters, one placed in the left supraclavicular area, one in the right supraclavicular area, and one in the anterior chest wall on the left side. Mostly to decompressive subcutaneous emphysema. These were placed uneventfully, and place and a sterile field. And covered with dressing. Patient is on the COVID-19 cocktail. She is also on baricitinib Decadron 6 mg IV push daily, Lovenox 40 mg subcu twice a day, she is also on Protonix 40 mg IV push daily and zinc. Reevaluated today on 03/30/2021, patient remains in the ICU, intubated and mechanically ventilated. She remains on assist control rate of 32 tidal volume 375 FiO2 60% and I cut it down to 55% PEEP remains at 10. ABG showed a pO2 of 59 pCO2 of 39 pH of 7.44. Chest x-ray showed bilateral infiltrates, persistent subcutaneous emphysema but seems to be less compared to the previous 2 days. No evidence of pneumothorax. Remains on multiple drips including norepinephrine at 0.03 mcg/kg/m, Nimbex at 2 mcg/kg/m, fentanyl at 2.5 mcg/kg/h propofol 50 mcg/kg/m. IV fluid at 20 mL per hour. Patient is on vital AF 26 mL per hour. Chest x-ray again is not showing much of a change. Patient remains on the COVID -19 cocktail including Decadron, Lovenox, Protonix, and she is also on baricitinib Reevaluated today on 03/31/2021, patient remains in the ICU, intubated and mechanically ventilated. She is on assist control rate of 3 to tidal volume 375 FiO2 70% and PEEP at 10 however after reviewing her ABG I recommended increasing the PEEP to 12 and I cut down her FiO2 from 70% to 65%. ABG showed a pO2 of 65 pCO2 of 39 pH of 7.30. Patient remains on Nimbex at 2 mcg/kg/m fentanyl at 2.5 mcg/kg/h propofol at 50 mcg/kg/m. She is also requiring norepinephrine at 0.08 mcg/kg/m, her blood pressure seems to be extremely labile. It is all over the chart. Today I recommended an echocardiogram, I also recommended serum cortisol level on this patient. Her chest x-ray continues to show bilateral infiltrates and subcu emphysema. However the subcu emphysema seems to be regressing. There is no evidence of pneumothorax. WBC count is 11.1 hemoglobin is 11.5 twice a normal renal profile is normal. Transaminases are slightly elevated. Yesterday the patient had positive sputum cultures for staph aureus, it was basically MSSA, hence we discontinued her baricitinib, received a dose of vancomycin, but considering the staph aureus is MSSA, will start the patient on cefepime and discontinue vancomycin and this was already discontinued yesterday. On 04/10/2021 patient seen in follow-up in the intensive care unit, she remains sedated, she has received a tracheostomy, she is connected to the ventilator on assist control mode of ventilation with a rate of 20, tidal volume is 375, FiO2 of 50% and PEEP of 10, this morning's blood gas shows pO2 of 75, pCO2 53, and pH is 7.45 and this was done on the above-mentioned vent settings, she is currently on 0.9 normal saline at a rate 20 ML per hour, Diprivan is a 55 mics per kilo per minute, and fentanyl infusion is a 2 mics per kilo per minute, she is tole rating tube feedings with vital HP at a rate of 19 with a goal of 19. Hemodynamically stable, not requiring any vasopressor support, she is in sinus rhythm with a rate of 105, slightly tachycardic, no fevers overnight, vital signs have been stable. Her peak airway pressure is 29 on the ventilator, and plateau pressure is 24, she has been getting daily dose of IV Lasix 40 mg daily, she is in -1.3 L net fluid balance over the last 24 hours. Her chest x-ray today has been reviewed showing stable bilateral interstitial alveolar infiltrates. No pneumothorax. He remains on Unasyn for evidence of emesis today in the sputum cultures. Her last sputum culture from 04/05/2021 showed MSSA. Her last pro-calcitonin from 04/08/2021 was improving from the original value, and was down to 1.59. Prevacid her labs have been reviewed, with blood cell count was 10.4, hemoglobin is 9.6, platelet count is 545, serum sodium is 134, potassium 3.7, chloride is 96, CO2 is 34, BUN is 12 creatinine 0.45, her LDH is improving and is down to 652 CRP is down to 7.4 on today's labs. Her last d-dimer from 04/07/2021 was 1.46, patient is on prophylactic dose Lovenox 40 mg daily, she remains on Decadron 6 mg daily. Lung sounds reveal coarse breath sounds, generally she remains edematous. Overall she remains an significantly positive fluid balance since admission. Very minimal secretions suctioned from her tracheostomy. Neurologically patient follows simple commands, she attempts to open her eyes this morning even on sedation, we will attempt another sedation holiday today. A very today on 04/11/21, patient remains intubated and mechanically ventilated. She is on assist control rate of 20 tidal volume 375 FiO2 45% and PEEP is down to 8. Patient is status post tracheostomy. She is on propofol at 45, today and planning to hopefully consider still placing the patient on pressure support of 12 and CPAP with 8 pressure. Patient remains on enteral feeding, she has a PEG tube in place, she is status post tracheostomy. Her ABG today showed a pO2 of 66 pCO2 47 pH of 7.53. WBC count is 14.7 hemoglobin 11.4. Renal profile is normal. Patient continues to have a central line in place, and I will recommend a PICC line and DC central line. Dr. rojasdipine 2 mg per hour. And again she is on propofol at 45. Patient is arousable off propofol, and she is generally weak, I plan to at least give the patient weaning trials hopefully today with a pressure support of 12 and CPAP. Chest x-ray continues show bilateral infiltrates. Remains on the COVID-19 cocktail. Remains on multivitamins. She is also on Lovenox 40 mg subcu daily, Lasix 40 mg IV push twice a day. Reevaluated today on 04/12/21, patient remains in the ICU, intubated and mechanically ventilated. Patient is on assist control rate of 20 tidal volume 375 FiO2 45% and PEEP is 8. A shunt remains on multiple drips including clevidipine for elevated blood pressure, she is now off propofol, and she is off fentanyl. She is receiving enteral feeding/vital AF at 10 mL per hour. Today the patient is arousable, she opens her eyes, she is follows simple instructions like wiggling toes and squeezing hands, I have tried the patient initially on a pressure support mode of mechanical ventilation, however she wasn't moving much of tidal volumes and I went ahead and recommended IMV and pressure support mode of mechanical ventilation. She is now on IMV of 8 pressure support of 14 PEEP remains at 8 she is at 45% FiO2. I recommended that we'll continue to hold sedation, I think overall the patient is showing some neurological improvement, however she is not ready to go on trach collar yet. I think the patient will be able to tolerate IMV with pressure support and we'll try to keep her on such mode of mechanical ventilation as long as tolerated. Chest x-ray is showing improvement in her infiltrates. EEG today showed a pO2 of 84 pCO2 41 pH of 7.56. WBC count is 16 hemoglobin 11.5. Electrolytes are normal except low potassium of 3.0 being corrected as per protocol. No profile is normal patient remains on the COVID-19 cocktail, she is also on Unasyn. He is on Decadron 6 mg IV push daily and Lovenox 40 mg subcu daily. Remains on Lasix at 40 mg IV push every 12 hours, she is on Dilaudid when necessary. Reevaluated today on 04/13/2021, patient remains in the ICU, intubated and mechanically ventilated. Patient was placed yesterday on pressure support mode of mechanical ventilation pressure support of 14 she was given on IMV backup rate of 8, and her PEEP was kept at 8. She was on 45% and tidal volume was 375. She seemed to tolerate that quite well yesterday, and she continues to do relatively well. Patient is a bit tachypneic, but she does not seem to be in distress. Hence today I am going to recommend that we get rid of the IMV backup rate and see if she could tolerate pressure support alone may use pressure support of 14 or 16 if necessary. May or may not have to go back to an IMV ba ckup rate. ABG this morning showed a pO2 of 62 pCO2 of 43 pH of 7.58 WBC count is 12.5 hemoglobin is 10.4. Renal profile is normal potassium is a bit low being corrected. LDH is down to 863 and C-reactive protein is down to 6.4. Chest x-ray is showing slight improvement in her bilateral infiltrates. I believe overall the patient is definitely showing signs of recovery from her hypoxic respiratory failure secondary to COVID-19 pneumonia. But she is definitely not receiving the ferguson yet, and I have no plans to transfer the patient out of the ICU at this point yet and she is not yet ready to go on a trach collar. Reevaluated today on 04/14/21, patient remains in the ICU, intubated and m echanically ventilated. However the patient is now on pressure support of 16 IMV of 8 and FiO2 of 45% and I cut it down to 40% her IMV of 8 cut down to 4 remains on tidal volume of 375 and PEEP of 5. Patient is doing well, ABG this morning showed a pO2 of 91 pCO2 41 pH of 7.56. Her electrolytes are normal except for low potassium of 3.2 being corrected as per protocol. Renal profile is normal. Patient is awake, arousable, follows all simple instructions, she is still requiring chiropractor at 5 mg per hour. Her IV fluid at KVO. And she is on vital AF at 27 mL per hour. Tried at bedside to place the patient on lower pressure support, however I could go as low as pressure support of 14 to maintain adequate tidal volumes. And I kept her on pressure support of 15 with IMV of 4. FiO2 cut down from 45% to 40% CBC is relatively unremarkable. Inflammatory markers have trended down significantly LDH is 769 and C-reactive protein is 4.6. Patient remains on the COVID-19 cocktail. Remains on Lasix at 40 mg IV twice a day,, she is on Lovenox 40 mg subcu daily she is also on Unasyn. Objective - Vital Signs Vital signs: Vital Signs Temp 99.9 F H 04/14/21 04:00 Pulse 90 04/14/21 07:00 Resp 33 H 04/14/21 07:00 BP 96/52 04/14/21 06:30 Pulse Ox 98 04/14/21 07:00 Intake & Output 04/13/21 04/14/21 04/14/21 18:59 06:59 18:59 Intake Total 719.867 784.000 100 Output Total 1960 2285 60 Balance -1240.133 -1501.000 40 Weight 82.3 kg Intake: IV 276 276 23 Sodium Chloride 0.9% 1, 240 240 20 000 ml @ 20 mls/hr IV . Q24H [facility] Rx#:[id number] pressure bag 36 36 3 Intake, IV Titration 89.867 94.000 50 Amount Clevidipine Butyrate 25 89.867 94.000 50 mg In Empty Bag 1 bag @ 1 MG/HR 2 mls/hr IV .Q24H PRN Rx#:[id number] Tube Feeding 324 324 27 Other 30 90 Output: Urine 1959 2285 60 Other: Voiding Method Indwelling Catheter Indwelling Catheter ABP, PAP, CO, CI - Last Documented Arterial Blood Pressure 118/47 - Exam GENERAL EXAM: Awake, in no distress, remains on mechanical ventilation. However I was able to cut down her IMV rate to 4 pressure support down to 14 PEEP is at 5 and FiO2 is at 40%. HEAD: Normocephalic/atraumatic. ENT: PERRLA, EOMI, nonicteric, masses, no JVD CHEST: No chest wall deformity. Symmetrical expansion. LUNGS: Records and rales at the bases. CVS: Regular rate and rhythm, normal S1 and S2, no gallops, no murmurs, no rubs ABDOMEN: Soft, nontender. No hepatosplenomegaly, normal bowel sounds, no guarding or rigidity. Mid epigastric PEG tube is in place, incision site is clean dry and intact EXTREMITIES: No clubbing, trace of bipedal edema. Skin: No rashes. CENTRAL NERVOUS SYSTEM: Awake, alert oriented 3, no gross focal deficits. Patient is generally weak however. All instructions without any difficulty. Psychiatric: Normal mood affect and normal mental status examination. - Labs CBC & Chem 7: 04/14/21 04:45 04/14/21 04:45 Labs: Abnormal Lab Results - Last 24 Hours (Table) 04/13/21 04/13/21 04/13/21 Range/Units 12:14 18:05 18:10 RBC (3.80-5.40) m/uL Hgb (11.4-16.0) gm/dL Hct (34.0-46.0) % Plt Count (150-450) k/uL Neutrophils # (1.3-7.7) k/uL ABG pH (7.35-7.45) ABG HCO3 (21-25) mmol/L ABG Total CO2 (19-24) mmol/L ABG O2 Saturation (94-97) % Sodium (137-145) mmol/L Potassium 3.2 L (3.5-5.1) mmol/L Chloride (98-107) mmol/L Carbon Dioxide (22-30) mmol/L Creatinine (0.52-1.04) mg/dL Glucose (74-99) mg/dL POC Glucose (mg/dL) 230 H 242 H (75-99) mg/dL Calcium (8.4-10.2) mg/dL Lactate Dehydrogenase (313-618) U/L C-Reactive Protein (<1.0) mg/dL Total Protein (6.3-8.2) g/dL Albumin (3.5-5.0) g/dL 04/13/21 04/14/21 04/14/21 Range/Units 23:46 04:45 04:45 RBC 3.16 L (3.80-5.40) m/uL Hgb 9.4 L (11.4-16.0) gm/dL Hct 29.7 L (34.0-46.0) % Plt Count 498 H (150-450) k/uL Neutrophils # 8.0 H (1.3-7.7) k/uL ABG pH (7.35-7.45) ABG HCO3 (21-25) mmol/L ABG Total CO2 (19-24) mmol/L ABG O2 Saturation (94-97) % Sodium 133 L (137-145) mmol/L Potassium 3.2 L (3.5-5.1) mmol/L Chloride 96 L (98-107) mmol/L Carbon Dioxide 35 H (22-30) mmol/L Creatinine 0.36 L (0.52-1.04) mg/dL Glucose 195 H (74-99) mg/dL POC Glucose (mg/dL) 159 H (75-99) mg/dL Calcium 8.0 L (8.4-10.2) mg/dL Lactate Dehydrogenase 769 H (313-618) U/L C-Reactive Protein 4.6 H (<1.0) mg/dL Total Protein 5.1 L (6.3-8.2) g/dL Albumin 2.3 L (3.5-5.0) g/dL 04/14/21 04/14/21 Range/Units 05:38 05:56 RBC (3.80-5.40) m/uL Hgb (11.4-16.0) gm/dL Hct (34.0-46.0) % Plt Count (150-450) k/uL Neutrophils # (1.3-7.7) k/uL ABG pH 7.56 H* (7.35-7.45) ABG HCO3 36 H (21-25) mmol/L ABG Total CO2 38 H (19-24) mmol/L ABG O2 Saturation 98.2 H (94-97) % Sodium (137-145) mmol/L Potassium (3.5-5.1) mmol/L Chloride (98-107) mmol/L Carbon Dioxide (22-30) mmol/L Creatinine (0.52-1.04) mg/dL Glucose (74-99) mg/dL POC Glucose (mg/dL) 197 H (75-99) mg/dL Calcium (8.4-10.2) mg/dL Lactate Dehydrogenase (313-618) U/L C-Reactive Protein (<1.0) mg/dL Total Protein (6.3-8.2) g/dL Albumin (3.5-5.0) g/dL Assessment and Plan Assessment: Impression: Acute hypoxic respiratory failure secondary to COVID-19 pneumonia, requiring intubation and mechanical ventilation on 03/25/21, patient received tracheostomy on 04/05 remains intubated and mechanically ventilated. Not quite ready to go to [facility] mostly because at lower pressure support less than 14, patient continues to have low tidal volumes and I kept her today on a pressure support of 14. Elevated inflammatory markers and elevated d-dimer secondary to above. Type 2 diabetes. Hypothyroidism. Dyslipidemia. Pneumomediastinum, resolved. Recommendation: Continue ventilatory support. Pressure support/IMV. Nutritional support/enteral feeding GI prophylaxis. Continue Lovenox Continue COVID-19 cocktail. Keep patient off narcotics and sedatives unless needed Physical therapy to evaluate. Continue to monitor labs. Continue Lovenox. Remains critically ill. Overall improving compared to the last couple of weeks. Consider placement on this patient early next week, as of tomorrow. In the meantime we'll continue to wean from mechanical ventilation if possible. Critical care time is over 30 minutes. Time with Patient: Greater than 30
[2021-04-14 11:33] LABS: Glucose,Whole Blood 119 mg/dL (75-99)
[2021-04-14] MEDS: HYDROmorphone 1 MG/ML 1 ML SYRINGE IVP PRN ×2 (15:32→20:49)
--- NOTE | 2021-04-14 16:23 | P.PN ---
Subjective Progress Note Date: 04/13/21 Principal diagnosis: Acute hypoxemic respiratory failure requiring intubation and mechanical ventilation COVID-19 bilateral pneumonia 65-year-old female with past medical history of diabetes mellitus, hyperlipidemia, hypertension, osteoarthritis, no smoking history presented to the ER with worsening dyspnea 10 days accompanied by loss of appetite, fatigue, cough. Denies fevers or sweats. Denies muscle aches. On admission patient was febrile with temperature 99.1, WBC 5.2, tachycardic, cachectic, maintaining O2 sats of 88% on room air. Patient's respiratory status has further worsened and currently maintaining O2 sats of mid 90s on 3 L nasal cannula. Displays exertional dyspnea after ambulating from BR. Coronavirus PCR positive. D-dimer 0.39, LDH 1108, CRP 18.6. Chest x-ray reporting reticular and some minimal patchy opacity's over bilateral lower lungs, left greater than right. Hemoglobin 14.5, platelets 287. Sodium currently 132, potassium 5, BUN 27, creatinine 0.77. A.m. Accu-Chek currently being obtained, the blood sugar 231 last night. Denies chest pain, palpitations. 04/12/2021 Patient is seen and evaluated in ICU; remains intubated and mechanically ventilated. Patient does open eyes to verbal and tactile stimulation and follows simple commands Patient remains on clevidipine for elevated blood pressure, off propofol and fentanyl. She is receiving enteral feeding/vital AF at 10 mL per hour. Pulmonary recommended IMV and pressure support mode of mechanical ventilation; she is at 45% FiO2; continue to hold sedation; patient is not ready to go on trach collar yet. -- Chest x-ray is showing improvement in her infiltrates. ABGs reveal pO2 of 84 pCO2 41 pH of 7.56. WBC count is 16 hemoglobin 11.5. Electrolytes are normal except low potassium of 3.0 being corrected as per protocol. Patient remains on the COVID-19 treatment cocktail, along with Unasyn. He is on Decadron 6 mg IV push daily and Lovenox 40 mg subcu daily. Remains on Lasix at 40 mg IV push every 12 hours 04/13/2021 Patient remains in the ICU, intubated and mechanically ventilated. Patient was placed yesterday on pressure support mode of mechanical ventilation pressure support; tolerated that quite well yesterday, and she continues to do relatively well. ABG this morning showed a pO2 of 62 pCO2 of 43 pH of 7.58 WBC count is 12.5 hemoglobin is 10.4. Renal profile is normal potassium is a bit low being corrected. LDH is down to 863 and C-reactive protein is down to 6.4. Chest x-ray is showing slight improvement in her bilateral infiltrates. Pulmonary service planning to continue with ventilator support; PS/IMV; continue with tube feeding for nutritional support Plan to continue to monitor inflammatory markers periodically Objective - Vital Signs Vital signs: Vital Signs Temp 99.2 F 04/13/21 12:00 Pulse 118 H 04/13/21 14:00 Resp 8 L 04/13/21 14:00 BP 148/70 04/13/21 10:30 Pulse Ox 97 04/13/21 14:00 Intake & Output 04/12/21 04/13/21 04/13/21 18:59 06:59 18:59 Intake Total 1138.304 753.801 400.533 Output Total 755 1135 1235 Balance 383.304 -381.199 -834.467 Weight 82.3 kg 82.5 kg Intake: IV 376 276 161 Ampicillin-Sulbactam 1.5 100 gm In Sodium Chloride 0.9 % 50 ml @ 100 mls/hr IVPB Q6HR [facility] Rx#:[id number] Sodium Chloride 0.9% 1, 240 240 140 000 ml @ 20 mls/hr IV . Q24H [facility] Rx#:[id number] pressure bag 36 36 21 Intake, IV Titration 352.304 57.801 20.533 Amount Clevidipine Butyrate 25 50 57.801 20.533 mg In Empty Bag 1 bag @ 1 MG/HR 2 mls/hr IV .Q24H [facility] Rx#:[id number] Magnesium Sulfate-D5w Pmx 200 1 gm In Dextrose/Water 1 100ml.bag @ 100 mls/hr IVPB Q1H [facility] Rx#: [id number] propofoL 1,000 mg In 102.304 Empty Bag 1 bag @ Titrate IV .Q0M [facility] Rx#: [id number] Tube Feeding 230 330 189 Other 180 90 30 Output: Urine 755 1135 1235 Other: Voiding Method Indwelling Catheter Indwelling Catheter Indwelling Catheter # Bowel Movements 1 ABP, PAP, CO, CI - Last Documented Arterial Blood Pressure 163/71 - Exam GENERAL EXAM: Arousable, in no distress, remains on mechanical ventilation. HEAD: Normocephalic/atraumatic. ENT: PERRLA, EOMI, nonicteric, masses, no JVD, left subclavian central line is noted. CHEST: No chest wall deformity. Symmetrical expansion. LUNGS: Records and rales at the bases. CVS: Regular rate and rhythm, normal S1 and S2, no gallops, no murmurs, no rubs ABDOMEN: Soft, nontender. No hepatosplenomegaly, normal bowel sounds, no guarding or rigidity. Mid epigastric PEG tube is in place, incision site is clean dry and intact EXTREMITIES: No clubbing, nonpitting generalized edema and upper and lower extremities, and abdomen no cyanosis, 2+ pulses and upper and lower extremities. - Labs CBC & Chem 7: 04/14/21 04:45 04/14/21 04:45 Labs: Abnormal Lab Results - Last 24 Hours (Table) 04/12/21 04/12/21 04/12/21 Range/Units 15:00 17:32 23:50 WBC (3.8-10.6) k/uL RBC (3.80-5.40) m/uL Hgb (11.4-16.0) gm/dL Hct (34.0-46.0) % Plt Count (150-450) k/uL Neutrophils # (1.3-7.7) k/uL ABG pH (7.35-7.45) ABG pO2 (83-108) mmHg ABG HCO3 (21-25) mmol/L ABG Total CO2 (19-24) mmol/L Sodium (137-145) mmol/L Potassium 3.2 L (3.5-5.1) mmol/L Chloride (98-107) mmol/L Carbon Dioxide (22-30) mmol/L Creatinine (0.52-1.04) mg/dL Glucose (74-99) mg/dL POC Glucose (mg/dL) 218 H 218 H (75-99) mg/dL Calcium (8.4-10.2) mg/dL AST (14-36) U/L ALT (4-34) U/L Lactate Dehydrogenase (313-618) U/L C-Reactive Protein (<1.0) mg/dL Total Protein (6.3-8.2) g/dL Albumin (3.5-5.0) g/dL 04/13/21 04/13/21 04/13/21 Range/Units 04:20 04:20 05:58 WBC 12.5 H (3.8-10.6) k/uL RBC 3.52 L (3.80-5.40) m/uL Hgb 10.4 L (11.4-16.0) gm/dL Hct 32.5 L (34.0-46.0) % Plt Count 550 H (150-450) k/uL Neutrophils # 8.8 H (1.3-7.7) k/uL ABG pH (7.35-7.45) ABG pO2 (83-108) mmHg ABG HCO3 (21-25) mmol/L ABG Total CO2 (19-24) mmol/L Sodium 136 L (137-145) mmol/L Potassium 3.2 L (3.5-5.1) mmol/L Chloride 94 L (98-107) mmol/L Carbon Dioxide 36 H (22-30) mmol/L Creatinine 0.41 L (0.52-1.04) mg/dL Glucose 191 H (74-99) mg/dL POC Glucose (mg/dL) 217 H (75-99) mg/dL Calcium 8.1 L (8.4-10.2) mg/dL AST 38 H (14-36) U/L ALT 37 H (4-34) U/L Lactate Dehydrogenase 863 H (313-618) U/L C-Reactive Protein 6.4 H (<1.0) mg/dL Total Protein 5.4 L (6.3-8.2) g/dL Albumin 2.4 L (3.5-5.0) g/dL 04/13/21 04/13/21 Range/Units 06:11 12:14 WBC (3.8-10.6) k/uL RBC (3.80-5.40) m/uL Hgb (11.4-16.0) gm/dL Hct (34.0-46.0) % Plt Count (150-450) k/uL Neutrophils # (1.3-7.7) k/uL ABG pH 7.58 H* (7.35-7.45) ABG pO2 62 L (83-108) mmHg ABG HCO3 40 H* (21-25) mmol/L ABG Total CO2 42 H (19-24) mmol/L Sodium (137-145) mmol/L Potassium (3.5-5.1) mmol/L Chloride (98-107) mmol/L Carbon Dioxide (22-30) mmol/L Creatinine (0.52-1.04) mg/dL Glucose (74-99) mg/dL POC Glucose (mg/dL) 230 H (75-99) mg/dL Calcium (8.4-10.2) mg/dL AST (14-36) U/L ALT (4-34) U/L Lactate Dehydrogenase (313-618) U/L C-Reactive Protein (<1.0) mg/dL Total Protein (6.3-8.2) g/dL Albumin (3.5-5.0) g/dL Assessment and Plan Assessment: Acute hypoxic respiratory failure secondary to COVID-19 pneumonia, requiring intubation and mechanical ventilation on 03/25/21, patient received tracheostomy on 04/05 remains intubated and mechanically ventilated. Her ventilator settings were noted earlier. And no changes were made I am considering a pressure support mode of mechanical ventilation on this patient and possibly CPAP. Elevated inflammatory markers and elevated d-dimer secondary to above. Type 2 diabetes. Hypothyroidism. Dyslipidemia. Pneumomediastinum, resolved. Recommendation: Continue ventilatory support. Sitter and weaning mode of mechanical ventilation with pressure support and CPAP if possible today. But has to be off sedation. Nutritional support/enteral feeding GI prophylaxis. Continue Lovenox Continue COVID-19 cocktail. Keep patient off fentanyl infusion and use Dilaudid as needed Continue to monitor labs. Continue Lovenox. Continue diuretics as the patient seems to be in positive fluid balance.
--- NOTE | 2021-04-14 16:26 | P.PN ---
Subjective Progress Note Date: 04/14/21 Principal diagnosis: Acute hypoxemic respiratory failure requiring intubation and mechanical ventilation COVID-19 bilateral pneumonia 65-year-old female with past medical history of diabetes mellitus, hyperlipidemia, hypertension, osteoarthritis, no smoking history presented to the ER with worsening dyspnea 10 days accompanied by loss of appetite, fatigue, cough. Denies fevers or sweats. Denies muscle aches. On admission patient was febrile with temperature 99.1, WBC 5.2, tachycardic, cachectic, maintaining O2 sats of 88% on room air. Patient's respiratory status has further worsened and currently maintaining O2 sats of mid 90s on 3 L nasal cannula. Displays exertional dyspnea after ambulating from BR. Coronavirus PCR positive. D-dimer 0.39, LDH 1108, CRP 18.6. Chest x-ray reporting reticular and some minimal patchy opacity's over bilateral lower lungs, left greater than right. Hemoglobin 14.5, platelets 287. Sodium currently 132, potassium 5, BUN 27, creatinine 0.77. A.m. Accu-Chek currently being obtained, the blood sugar 231 last night. Denies chest pain, palpitations. 04/12/2021 Patient is seen and evaluated in ICU; remains intubated and mechanically ventilated. Patient does open eyes to verbal and tactile stimulation and follows simple commands Patient remains on clevidipine for elevated blood pressure, off propofol and fentanyl. She is receiving enteral feeding/vital AF at 10 mL per hour. Pulmonary recommended IMV and pressure support mode of mechanical ventilation; she is at 45% FiO2; continue to hold sedation; patient is not ready to go on trach collar yet. -- Chest x-ray is showing improvement in her infiltrates. ABGs reveal pO2 of 84 pCO2 41 pH of 7.56. WBC count is 16 hemoglobin 11.5. Electrolytes are normal except low potassium of 3.0 being corrected as per protocol. Patient remains on the COVID-19 treatment cocktail, along with Unasyn. He is on Decadron 6 mg IV push daily and Lovenox 40 mg subcu daily. Remains on Lasix at 40 mg IV push every 12 hours 04/13/2021 Patient remains in the ICU, intubated and mechanically ventilated. Patient was placed yesterday on pressure support mode of mechanical ventilation pressure support; tolerated that quite well yesterday, and she continues to do relatively well. ABG this morning showed a pO2 of 62 pCO2 of 43 pH of 7.58 WBC count is 12.5 hemoglobin is 10.4. Renal profile is normal potassium is a bit low being corrected. LDH is down to 863 and C-reactive protein is down to 6.4. Chest x-ray is showing slight improvement in her bilateral infiltrates. Pulmonary service planning to continue with ventilator support; PS/IMV; continue with tube feeding for nutritional support Plan to continue to monitor inflammatory markers periodically 04/14/2021 Patient remains in the ICU, intubated and mechanically ventilated; currently on pressure support; Patient is doing well; awake and arousable and follows simple instructions ABG this morning showed a pO2 of 91 pCO2 41 pH of 7.56. Her electrolytes are normal except for low potassium of 3.2 being corrected as per protocol. Renal profile is normal. Inflammatory markers have trended down significantly LDH is 769 and C-reactive protein is 4.6. Patient remains on the COVID-19 cocktail. Remains on Lasix at 40 mg IV twice a day,, she is on Lovenox 40 mg subcu daily she is also on Unasyn. Patient remains on ventilator support P/IMV per pulmonary recommendations;; remains and nutritional support Plan is to continue to wean off of mechanical ventilation Objective - Vital Signs Vital signs: Vital Signs Temp 98.9 F 04/14/21 12:00 Pulse 67 04/14/21 13:00 Resp 30 H 04/14/21 13:00 BP 110/64 04/14/21 13:00 Pulse Ox 99 04/14/21 13:00 Intake & Output 04/13/21 04/14/21 04/14/21 18:59 06:59 18:59 Intake Total 719.867 784.000 650 Output Total 1960 2285 1535 Balance -1240.133 -1501.000 -885 Weight 82.3 kg Intake: IV 276 276 211 Ampicillin-Sulbactam 1.5 50 gm In Sodium Chloride 0.9 % 50 ml @ 100 mls/hr IVPB Q6HR [facility] Rx#:[id number] Sodium Chloride 0.9% 1, 240 240 140 000 ml @ 20 mls/hr IV . Q24H [facility] Rx#:[id number] pressure bag 36 36 21 Intake, IV Titration 89.867 94.000 250 Amount Clevidipine Butyrate 25 89.867 94.000 50 mg In Empty Bag 1 bag @ 1 MG/HR 2 mls/hr IV .Q24H [facility] Rx#:[id number] Potassium Chloride 10 meq 200 In Water For Injection 1 100ml.bag @ 100 mls/hr IVPB Q1HR [facility] Rx#: [id number] Tube Feeding 324 324 189 Other 30 90 Output: Urine 1960 2285 1535 Other: Voiding Method Indwelling Catheter Indwelling Catheter Indwelling Catheter # Bowel Movements 1 ABP, PAP, CO, CI - Last Documented Arterial Blood Pressure 136/55 - Exam GENERAL EXAM: Arousable, in no distress, remains on mechanical ventilation. HEAD: Normocephalic/atraumatic. ENT: PERRLA, EOMI, nonicteric, masses, no JVD, left subclavian central line is noted. CHEST: No chest wall deformity. Symmetrical expansion. LUNGS: Records and rales at the bases. CVS: Regular rate and rhythm, normal S1 and S2, no gallops, no murmurs, no rubs ABDOMEN: Soft, nontender. No hepatosplenomegaly, normal bowel sounds, no guarding or rigidity. Mid epigastric PEG tube is in place, incision site is clean dry and intact EXTREMITIES: No clubbing, nonpitting generalized edema and upper and lower extremities, and abdomen no cyanosis, 2+ pulses and upper and lower extremities. - Labs CBC & Chem 7: 04/14/21 04:45 04/14/21 04:45 Labs: Abnormal Lab Results - Last 24 Hours (Table) 04/13/21 04/13/21 04/13/21 Range/Units 18:05 18:10 23:46 RBC (3.80-5.40) m/uL Hgb (11.4-16.0) gm/dL Hct (34.0-46.0) % Plt Count (150-450) k/uL Neutrophils # (1.3-7.7) k/uL ABG pH (7.35-7.45) ABG HCO3 (21-25) mmol/L ABG Total CO2 (19-24) mmol/L ABG O2 Saturation (94-97) % Sodium (137-145) mmol/L Potassium 3.2 L (3.5-5.1) mmol/L Chloride (98-107) mmol/L Carbon Dioxide (22-30) mmol/L Creatinine (0.52-1.04) mg/dL Glucose (74-99) mg/dL POC Glucose (mg/dL) 242 H 159 H (75-99) mg/dL Calcium (8.4-10.2) mg/dL Lactate Dehydrogenase (313-618) U/L C-Reactive Protein (<1.0) mg/dL Total Protein (6.3-8.2) g/dL Albumin (3.5-5.0) g/dL 04/14/21 04/14/21 04/14/21 Range/Units 04:45 04:45 05:38 RBC 3.16 L (3.80-5.40) m/uL Hgb 9.4 L (11.4-16.0) gm/dL Hct 29.7 L (34.0-46.0) % Plt Count 498 H (150-450) k/uL Neutrophils # 8.0 H (1.3-7.7) k/uL ABG pH 7.56 H* (7.35-7.45) ABG HCO3 36 H (21-25) mmol/L ABG Total CO2 38 H (19-24) mmol/L ABG O2 Saturation 98.2 H (94-97) % Sodium 133 L (137-145) mmol/L Potassium 3.2 L (3.5-5.1) mmol/L Chloride 96 L (98-107) mmol/L Carbon Dioxide 35 H (22-30) mmol/L Creatinine 0.36 L (0.52-1.04) mg/dL Glucose 195 H (74-99) mg/dL POC Glucose (mg/dL) (75-99) mg/dL Calcium 8.0 L (8.4-10.2) mg/dL Lactate Dehydrogenase 769 H (313-618) U/L C-Reactive Protein 4.6 H (<1.0) mg/dL Total Protein 5.1 L (6.3-8.2) g/dL Albumin 2.3 L (3.5-5.0) g/dL 04/14/21 04/14/21 Range/Units 05:56 11:31 RBC (3.80-5.40) m/uL Hgb (11.4-16.0) gm/dL Hct (34.0-46.0) % Plt Count (150-450) k/uL Neutrophils # (1.3-7.7) k/uL ABG pH (7.35-7.45) ABG HCO3 (21-25) mmol/L ABG Total CO2 (19-24) mmol/L ABG O2 Saturation (94-97) % Sodium (137-145) mmol/L Potassium (3.5-5.1) mmol/L Chloride (98-107) mmol/L Carbon Dioxide (22-30) mmol/L Creatinine (0.52-1.04) mg/dL Glucose (74-99) mg/dL POC Glucose (mg/dL) 197 H 119 H (75-99) mg/dL Calcium (8.4-10.2) mg/dL Lactate Dehydrogenase (313-618) U/L C-Reactive Protein (<1.0) mg/dL Total Protein (6.3-8.2) g/dL Albumin (3.5-5.0) g/dL Assessment and Plan Assessment: Acute hypoxic respiratory failure secondary to COVID-19 pneumonia, requiring intubation and mechanical ventilation on 03/25/21, patient received tracheostomy on 04/05 remains intubated and mechanically ventilated. Her ventilator settings were noted earlier. And no changes were made I am considering a pressure support mode of mechanical ventilation on this patient and possibly CPAP. Elevated inflammatory markers and elevated d-dimer secondary to above. Type 2 diabetes. Hypothyroidism. Dyslipidemia. Pneumomediastinum, resolved. Recommendation: Continue ventilatory support. Sitter and weaning mode of mechanical ventilation with pressure support and CPAP if possible today. But has to be off sedation. Nutritional support/enteral feeding GI prophylaxis. Continue Lovenox Continue COVID-19 cocktail. Keep patient off fentanyl infusion and use Dilaudid as needed Continue to monitor labs. Continue Lovenox. Continue diuretics as the patient seems to be in positive fluid balance.
[2021-04-14 18:05] LABS: Glucose,Whole Blood 244 mg/dL (75-99)
[2021-04-14] MEDS: lisinopriL 10 MG TAB PO SCH (20:44)
[2021-04-14] MEDS: ATORVASTATIN 40 MG TAB PO SCH (20:44)
[2021-04-15 00:29] LABS: Glucose,Whole Blood 102 mg/dL (75-99)
[2021-04-15] MEDS: NOREPINEPHRINE 8 MG in SODIUM CHLORIDE 0.9% 250 ML IV SCH (00:30)
[2021-04-15] MEDS: INSULIN ASPART (NovoLOG) 100 UNIT/ML VIAL SQ SCH ×5 (00:30→23:43)
[2021-04-15] MEDS: HYDROmorphone 1 MG/ML 1 ML SYRINGE IVP PRN ×3 (01:46→23:42)
[2021-04-15 05:46] LABS: Glucose,Whole Blood 201 mg/dL (75-99)
[2021-04-15 05:59] LABS: ABG Base Excess 8.2 mmol/L; ABG HCO3 31 mmol/L (21-25); ABG Oxygen Saturation 93.5 % (94-97); ABG PCO2 35 mmHg (35-45); ABG PH 7.55 (7.35-7.45); ABG PO2 61 mmHg (83-108); ABG TCO2 32 mmol/L (19-24); Allen Test Performed? Yes
[2021-04-15] MEDS: LEVOTHYROXINE 75 MCG TAB PO SCH (06:08)
[2021-04-15] MEDS: ASCORBIC ACID 500 MG TAB PO SCH (08:15)
[2021-04-15] MEDS: ENOXAPARIN 40 MG/0.4 ML SYRINGE SQ SCH (08:15)
[2021-04-15] MEDS: CHOLECALCIFEROL 25 MCG (1000 IU) TABLET PO SCH (08:15)
[2021-04-15] MEDS: ZINC SULFATE 220 MG CAP PO SCH (08:15)
[2021-04-15] MEDS: CHLORHEXIDINE GLUCONATE 15 ML CUP MUCOUS MEM SCH ×2 (08:15→20:18)
[2021-04-15] MEDS: FUROSEMIDE 10 MG/ML 4 ML VIAL IV SCH (08:15)
[2021-04-15] MEDS: DEXAMETHASONE SOD PHOSPHATE 10 MG/ML 1 ML VIAL IVP SCH (08:16)
[2021-04-15] MEDS: SODIUM CHLORIDE 0.9% 1,000 ML IV SCH (08:17)
[2021-04-15] MEDS: PANTOPRAZOLE 40 MG/10 ML VIAL IVP SCH (08:17)
[2021-04-15] MEDS: INSULIN DETEMIR (LEVEMIR) 100 UNIT/ML SYR SQ SCH (08:18)
[2021-04-15] MEDS: ALBUTEROL HFA INHALER INHALATION SCH ×4 (09:33→20:56)
[2021-04-15] MEDS ORDERED: LORazepam 2 MG/ML INJ IV STA (09:36)
[2021-04-15] MEDS ORDERED: SODIUM CHLORIDE 0.9% 1,000 ML IV ONE (10:20)
--- NOTE | 2021-04-15 11:08 | XR ---
EXAMINATION TYPE: XR chest 1V portable DATE OF EXAM: 04/15/2021 COMPARISON: 04/14/2021 HISTORY: Cough TECHNIQUE: Single frontal view of the chest is obtained. FINDINGS: Bilateral infiltrates are seen. Tracheostomy tube and right-sided PICC line. No pneumothor ax. Gastrostomy tube seen. IMPRESSION: Bilateral infiltrate stable.
[2021-04-15 11:30] LABS: Glucose,Whole Blood 132 mg/dL (75-99)
[2021-04-15 11:31] LABS: Basophils % (A) 0 %; Eosinophils # (A) 0.3 k/uL (0-0.7); Eosinophils % (A) 3 %; HCT 30.3 % (34.0-46.0); HGB 9.4 gm/dL (11.4-16.0); Hypochromasia Moderate; Lymphocytes % (A) 8 %; MCHC 30.9 g/dL (31.0-37.0); MCV 97.3 fL (80.0-100.0); Mean Platelet Volume 7.8; Monocytes # (A) 0.6 k/uL (0-1.0); Monocytes % (A) 5 %; Neutrophils # (A) 10.7 k/uL (1.3-7.7); Neutrophils % (A) 84 %; Platelet Count 493 k/uL (150-450); RBC 3.12 m/uL (3.80-5.40); RDW 14.8 % (11.5-15.5); WBC 12.7 k/uL (3.8-10.6)
[2021-04-15 11:41] LABS: ALT 45 U/L (4-34); AST 40 U/L (14-36); African American GFR (CKD) >90 (>60 ml/min/1.73 sqM); Albumin 2.5 g/dL (3.5-5.0); Alkaline Phosphatase 88 U/L (38-126); Anion Gap 4 mmol/L; Blood Urea Nitrogen 15 mg/dL (7-17); Calcium 8.2 mg/dL (8.4-10.2); Carbon Dioxide 32 mmol/L (22-30); Chloride 99 mmol/L (98-107); Glucose 137 mg/dL (74-99); Non-African American GFR(CKD) >90 (>60 ml/min/1.73 sqM); Potassium 3.4 mmol/L (3.5-5.1); Sodium 135 mmol/L (137-145); Total Bilirubin 0.5 mg/dL (0.2-1.3); Total Protein 5.5 g/dL (6.3-8.2)
--- NOTE | 2021-04-15 12:24 | P.PN ---
Subjective Progress Note Date: 04/15/21 Principal diagnosis: Acute hypoxic respiratory failure secondary to COVID-19 pneumonia 03/24/2021, the patient is having more difficulty in breathing. This morning, the patient started having worsening shortness of breath and worsening and hypoxemia. The patient is currently on BiPAP at a pressure of 14/8 cm of water. He is quite tachypneic. The respiratory rate is around 34 times a minute and her minute ventilation is above 24 L per minute. She is quite tachypneic and short of breath and she is also tachycardic. Note that, the patient's condition was gradually getting worse over the past several days. The patient was on 9 L of oxygen by nasal cannula and there was progressive rise in her oxygen requirements and she was brought up to 15 L and later on to 100% nonrebreather facemask and currently she is on a BiPAP. At the same time, the patient is being treated with a combination of Decadron and Baricitinib per protocol. She is on Lovenox for DVT prophylaxis 40 mg subcu daily basis. This is consistent with COVID 19 related pneumonia. While on the BiPAP, she underwent a blood gas that showed a pH of 7.46 with a pCO2 of 37 and pO2 of 50. Subsequently, her oxygen saturations improved. Her d-dimer from yesterday was more than 34. Her CRP level was 14 and her LDH level was 657. Rest of the blood work shows a potassium level of 3.4 with a sodium of 140. Reevaluated today on 03/25/2021, patient was transferred to the ICU this morning, she was placed on 100% FiO2, and BiPAP, and her O2 saturations remained marginal. I evaluated the patient in the ICU, and she was made aware that her condition seems to be worsening and she will likely end up requiring intubation and mechanical ventilation. An hour later, the patient decompensated, and she required to be intubated and mechanically ventilated. Patient was placed initially on 100% FiO2, EPAP of 12, tidal volume is 400, rate of 30. ABG is pending. Her d-dimer is 34. The left lites are normal LDH 879 C-reactive protein 15.6. CT angiogram few days ago showed no evidence of pulmonary embo lism. Venous Doppler negative for DVT Reevaluated today on 03/26/2021, patient remains in the ICU, intubated and mechanically ventilated. Patient is on assist control rate of 3 to tidal volume 400 FiO2 80%, PEEP of 14. Changes were made including tidal volume decreased to 375 FiO2 decreased to 70% PEEP increased to 16. Rate remained the same at 32. Patient is on propofol at 50 fentanyl at 0.5 Nimbex at 1.5. She is also on enteral feeding. She is hemodynamically stable, not requiring any pressors. Chest x-ray continues to show bilateral interstitial infiltrates consistent with COVID-19 pneumonia. Patient had negative workup for pulmonary embolism and negative workup for venous Doppler upon admission. ABG today showed a pO2 of 106 pCO2 of 40 pH of 7.39. Her CBC is relatively normal electrolytes are normal renal profile is normal. Reevaluated today on 03/27/2021, remains in the ICU intubated and mechanically ventilated. She is presently on assist control rate of 3 to tidal volume 375 PEEP is 16, FiO2 60%. ABG showed a pO2 of 67 pCO2 44 pH of 7.30. Hence I cut down her FiO2 to 55%. Patient remains on propofol at 40 mcg/kg/m norepinephrine at 0.05 mcg/kg/m Nimbex at 1.5 mcg/kg/ minute, and fentanyl 0.5 mcg/kg/h. Patient remains sedated and paralyzed, her ABG this morning showed a pO2 of 67 pCO2 of 44 pH of 7.30, FiO2 decreased to 55%. However as I was dictating this note, I was notified by the nurse that she developed subcu emphysema, and I'm recommending a stat chest x-ray, to determine if the patient has a new onset normal mediastinum or possibly a pneumothorax. Chest x-ray is pending at the time of this dictation. A shunt remains on enteral feedings. She is requiring a small dose of norepinephrine for hemodynamic instability. Reevaluated today on 03/28/2021, patient remains in the ICU, intubated and mechanically ventilated. Patient is on assist control rate of 32 volume of 375 FiO2 50% PEEP of 16. ABG showed a pO2 of 67 pCO2 of 49 pH of 7.30. Patient is on IV fluid at 1 20 mL/h, up a fall 45 mcg/kg/m, Nimbex at 1.5 mcg/kg/m, fentanyl 0.5 mcg/kg/h, she is off norepinephrine. CBC showed WBC count of 11.8 hemoglobin is 12.2. Hematocrit is 39.4. Electrolytes are normal renal profile is normal. Chest x-ray continues to show bilateral infiltrates, and there is evidence of pneumomediastinum and subcutaneous emphysema. Patient remains on th e COVID-19 cocktail, she is on echo from 6 mg IV push daily she is also on Lovenox 40 mg subcu twice a day. Patient is also receiving baricitinib . Patient is also on enteral feedings. Reevaluated today on 03/29/2021, remains in the ICU, intubated and mechanically ventilated. Patient is on assist control rate of 32, FiO2 of 50% tidal volume of 375 PEEP 16, decreased down to 14 today. And increase her FiO2 to 55%. ABG showed a pO2 of 70 pCO2 49 pH of 7.33 WBC count is 16.5 hemoglobin is 12 electrolytes are normal renal profile is normal. Patient is on multiple drips including IV fluid at 120 mL/h and I cut it down to KVO she is on enteral feeding via orogastric tube. Nimbex 2 mcg/kg/m propofol 60 mcg/kg/m fentanyl 0.75 mcg/kg/h. Patient is now off norepinephrine. Chest x-ray continues to show bilateral infiltrates, and worsening subcu emphysema, hence I went ahead and placed 3 different 14-Salvadorean catheters, one placed in the left supraclavicular area, one in the right supraclavicular area, and one in the anterior chest wall on the left side. Mostly to decompressive subcutaneous emphysema. These were placed uneventfully, and place and a sterile field. And covered with dressing. Patient is on the COVID-19 cocktail. She is also on baricitinib Decadron 6 mg IV push daily, Lovenox 40 mg subcu twice a day, she is also on Protonix 40 mg IV push daily and zinc. Reevaluated today on 03/30/2021, patient remains in the ICU, intubated and mechanically ventilated. She remains on assist control rate of 32 tidal volume 375 FiO2 60% and I cut it down to 55% PEEP remains at 10. ABG showed a pO2 of 59 pCO2 of 39 pH of 7.44. Chest x-ray showed bilateral infiltrates, persistent subcutaneous emphysema but seems to be less compared to the previous 2 days. No evidence of pneumothorax. Remains on multiple drips including norepinephrine at 0.03 mcg/kg/m, Nimbex at 2 mcg/kg/m, fentanyl at 2.5 mcg/kg/h propofol 50 mcg/kg/m. IV fluid at 20 mL per hour. Patient is on vital AF 26 mL per hour. Chest x-ray again is not showing much of a change. Patient remains on the COVID -19 cocktail including Decadron, Lovenox, Protonix, and she is also on baricitinib Reevaluated today on 03/31/2021, patient remains in the ICU, intubated and mechanically ventilated. She is on assist control rate of 3 to tidal volume 375 FiO2 70% and PEEP at 10 however after reviewing her ABG I recommended increasing the PEEP to 12 and I cut down her FiO2 from 70% to 65%. ABG showed a pO2 of 65 pCO2 of 39 pH of 7.30. Patient remains on Nimbex at 2 mcg/kg/m fentanyl at 2.5 mcg/kg/h propofol at 50 mcg/kg/m. She is also requiring norepinephrine at 0.08 mcg/kg/m, her blood pressure seems to be extremely labile. It is all over the chart. Today I recommended an echocardiogram, I also recommended serum cortisol level on this patient. Her chest x-ray continues to show bilateral infiltrates and subcu emphysema. However the subcu emphysema seems to be regressing. There is no evidence of pneumothorax. WBC count is 11.1 hemoglobin is 11.5 twice a normal renal profile is normal. Transaminases are slightly elevated. Yesterday the patient had positive sputum cultures for staph aureus, it was basically MSSA, hence we discontinued her baricitinib, received a dose of vancomycin, but considering the staph aureus is MSSA, will start the patient on cefepime and discontinue vancomycin and this was already discontinued yesterday. On 04/10/2021 patient seen in follow-up in the intensive care unit, she remains sedated, she has received a tracheostomy, she is connected to the ventilator on assist control mode of ventilation with a rate of 20, tidal volume is 375, FiO2 of 50% and PEEP of 10, this morning's blood gas shows pO2 of 75, pCO2 53, and pH is 7.45 and this was done on the above-mentioned vent settings, she is currently on 0.9 normal saline at a rate 20 ML per hour, Diprivan is a 55 mics per kilo per minute, and fentanyl infusion is a 2 mics per kilo per minute, she is tole rating tube feedings with vital HP at a rate of 19 with a goal of 19. Hemodynamically stable, not requiring any vasopressor support, she is in sinus rhythm with a rate of 105, slightly tachycardic, no fevers overnight, vital signs have been stable. Her peak airway pressure is 29 on the ventilator, and plateau pressure is 24, she has been getting daily dose of IV Lasix 40 mg daily, she is in -1.3 L net fluid balance over the last 24 hours. Her chest x-ray today has been reviewed showing stable bilateral interstitial alveolar infiltrates. No pneumothorax. He remains on Unasyn for evidence of emesis today in the sputum cultures. Her last sputum culture from 04/05/2021 showed MSSA. Her last pro-calcitonin from 04/08/2021 was improving from the original value, and was down to 1.59. Prevacid her labs have been reviewed, with blood cell count was 10.4, hemoglobin is 9.6, platelet count is 545, serum sodium is 134, potassium 3.7, chloride is 96, CO2 is 34, BUN is 12 creatinine 0.45, her LDH is improving and is down to 652 CRP is down to 7.4 on today's labs. Her last d-dimer from 04/07/2021 was 1.46, patient is on prophylactic dose Lovenox 40 mg daily, she remains on Decadron 6 mg daily. Lung sounds reveal coarse breath sounds, generally she remains edematous. Overall she remains an significantly positive fluid balance since admission. Very minimal secretions suctioned from her tracheostomy. Neurologically patient follows simple commands, she attempts to open her eyes this morning even on sedation, we will attempt another sedation holiday today. A very today on 04/11/21, patient remains intubated and mechanically ventilated. She is on assist control rate of 20 tidal volume 375 FiO2 45% and PEEP is down to 8. Patient is status post tracheostomy. She is on propofol at 45, today and planning to hopefully consider still placing the patient on pressure support of 12 and CPAP with 8 pressure. Patient remains on enteral feeding, she has a PEG tube in place, she is status post tracheostomy. Her ABG today showed a pO2 of 66 pCO2 47 pH of 7.53. WBC count is 14.7 hemoglobin 11.4. Renal profile is normal. Patient continues to have a central line in place, and I will recommend a PICC line and DC central line. Dr. rojasdipine 2 mg per hour. And again she is on propofol at 45. Patient is arousable off propofol, and she is generally weak, I plan to at least give the patient weaning trials hopefully today with a pressure support of 12 and CPAP. Chest x-ray continues show bilateral infiltrates. Remains on the COVID-19 cocktail. Remains on multivitamins. She is also on Lovenox 40 mg subcu daily, Lasix 40 mg IV push twice a day. Reevaluated today on 04/12/21, patient remains in the ICU, intubated and mechanically ventilated. Patient is on assist control rate of 20 tidal volume 375 FiO2 45% and PEEP is 8. A shunt remains on multiple drips including clevidipine for elevated blood pressure, she is now off propofol, and she is off fentanyl. She is receiving enteral feeding/vital AF at 10 mL per hour. Today the patient is arousable, she opens her eyes, she is follows simple instructions like wiggling toes and squeezing hands, I have tried the patient initially on a pressure support mode of mechanical ventilation, however she wasn't moving much of tidal volumes and I went ahead and recommended IMV and pressure support mode of mechanical ventilation. She is now on IMV of 8 pressure support of 14 PEEP remains at 8 she is at 45% FiO2. I recommended that we'll continue to hold sedation, I think overall the patient is showing some neurological improvement, however she is not ready to go on trach collar yet. I think the patient will be able to tolerate IMV with pressure support and we'll try to keep her on such mode of mechanical ventilation as long as tolerated. Chest x-ray is showing improvement in her infiltrates. EEG today showed a pO2 of 84 pCO2 41 pH of 7.56. WBC count is 16 hemoglobin 11.5. Electrolytes are normal except low potassium of 3.0 being corrected as per protocol. No profile is normal patient remains on the COVID-19 cocktail, she is also on Unasyn. He is on Decadron 6 mg IV push daily and Lovenox 40 mg subcu daily. Remains on Lasix at 40 mg IV push every 12 hours, she is on Dilaudid when necessary. Reevaluated today on 04/13/2021, patient remains in the ICU, intubated and mechanically ventilated. Patient was placed yesterday on pressure support mode of mechanical ventilation pressure support of 14 she was given on IMV backup rate of 8, and her PEEP was kept at 8. She was on 45% and tidal volume was 375. She seemed to tolerate that quite well yesterday, and she continues to do relatively well. Patient is a bit tachypneic, but she does not seem to be in distress. Hence today I am going to recommend that we get rid of the IMV backup rate and see if she could tolerate pressure support alone may use pressure support of 14 or 16 if necessary. May or may not have to go back to an IMV ba ckup rate. ABG this morning showed a pO2 of 62 pCO2 of 43 pH of 7.58 WBC count is 12.5 hemoglobin is 10.4. Renal profile is normal potassium is a bit low being corrected. LDH is down to 863 and C-reactive protein is down to 6.4. Chest x-ray is showing slight improvement in her bilateral infiltrates. I believe overall the patient is definitely showing signs of recovery from her hypoxic respiratory failure secondary to COVID-19 pneumonia. But she is definitely not receiving the ferguson yet, and I have no plans to transfer the patient out of the ICU at this point yet and she is not yet ready to go on a trach collar. Reevaluated today on 04/14/21, patient remains in the ICU, intubated and m echanically ventilated. However the patient is now on pressure support of 16 IMV of 8 and FiO2 of 45% and I cut it down to 40% her IMV of 8 cut down to 4 remains on tidal volume of 375 and PEEP of 5. Patient is doing well, ABG this morning showed a pO2 of 91 pCO2 41 pH of 7.56. Her electrolytes are normal except for low potassium of 3.2 being corrected as per protocol. Renal profile is normal. Patient is awake, arousable, follows all simple instructions, she is still requiring chiropractor at 5 mg per hour. Her IV fluid at KVO. And she is on vital AF at 27 mL per hour. Tried at bedside to place the patient on lower pressure support, however I could go as low as pressure support of 14 to maintain adequate tidal volumes. And I kept her on pressure support of 15 with IMV of 4. FiO2 cut down from 45% to 40% CBC is relatively unremarkable. Inflammatory markers have trended down significantly LDH is 769 and C-reactive protein is 4.6. Patient remains on the COVID-19 cocktail. Remains on Lasix at 40 mg IV twice a day,, she is on Lovenox 40 mg subcu daily she is also on Unasyn. Reevaluated today on 04/15/21, patient remains in the ICU, intubated and mechanically ventilated, however the patient is on pressure support of 14, IMV of 4 FiO2 of 45% and tidal volume set at 375. PEEP is at 5. Patient is doing well, however she seems to bit anxious and I recommended a one dose of Ativan 0.5 mg given once, the patient down, she seems to be more relaxed, and even on lower pressure support, patient was noted to have decent tidal volumes, then I decided to give the patient a trial of trach collar. Patient was placed on trach collar at 50%, and I have recommended that we hold diuretics, her blood pressure is marginal, and she will be given a fluid bolus. I believe the patie nt is developing a picture of acute metabolic contraction alkalosis, hence Lasix will be discontinued and the patient will be given fluids today. ABG showed a pO2 of 61 pCO2 35 pH of 7.55 her CBC is relatively normal with WBC count of 12.7 hemoglobin is 9.4. Electrolytes are normal bicarb is 32. Chest x-ray continues to show bilateral multifocal airspace disease consistent with COVID-19 pneumonia I believe those are postinflammatory changes from her recent COVID-19 infection/pneumonia and ARDS. Objective - Vital Signs Vital signs: Vital Signs Temp 98.3 F 04/15/21 12:00 Pulse 85 04/15/21 12:00 Resp 35 H 04/15/21 12:00 BP 109/56 04/15/21 12:00 Pulse Ox 100 04/15/21 12:00 Intake & Output 04/14/21 04/15/21 04/15/21 18:59 06:59 18:59 Intake Total 950 523 250 Output Total 0911 738 3490 Balance -760 13 -810 Weight 82.7 kg Intake: IV 349 253 115 Ampicillin-Sulbactam 1.5 50 gm In Sodium Chloride 0.9 % 50 ml @ 100 mls/hr IVPB Q6HR [facility] Rx#:[id number] Sodium Chloride 0.9% 1, 260 220 100 000 ml @ 20 mls/hr IV . Q24H [facility] Rx#:[id number] pressure bag 39 33 15 Intake, IV Titration 250 Amount Clevidipine Butyrate 25 50 mg In Empty Bag 1 bag @ 1 MG/HR 2 mls/hr IV .Q24H [facility] Rx#:[id number] Potassium Chloride 10 meq 200 In Water For Injection 1 100ml.bag @ 100 mls/hr IVPB Q1HR [facility] Rx#: [id number] Tube Feeding 351 270 135 Output: Urine 8121 416 9225 Other: Voiding Method Indwelling Catheter Indwelling Catheter Indwelling Catheter # Bowel Movements 1 ABP, PAP, CO, CI - Last Documented Arterial Blood Pressure 150/99 - Exam GENERAL EXAM: Awake, in no distress, remains on mechanical ventilation. Transition today to a trach collar from pressure support and IMV mode of mechanical ventilation, she is now on trach collar at 50%. HEAD: Normocephalic/atraumatic. ENT: PERRLA, EOMI, nonicteric, masses, no JVD CHEST: No chest wall deformity. Symmetrical expansion. LUNGS: Records and rales at the bases. CVS: Regular rate and rhythm, normal S1 and S2, no gallops, no murmurs, no rubs ABDOMEN: Soft, nontender. No hepatosplenomegaly, normal bowel sounds, no guarding or rigidity. Mid epigastric PEG tube is in place, incision site is clean dry and intact EXTREMITIES: No clubbing, trace of bipedal edema. Skin: No rashes. CENTRAL NERVOUS SYSTEM: Awake, alert oriented 3, no gross focal deficits. Patient is generally weak however. All instructions without any difficulty. Psychiatric: Anxious mood, normal affect, normal mental status examination. - Labs CBC & Chem 7: 04/15/21 11:13 04/15/21 11:13 Labs: Abnormal Lab Results - Last 24 Hours (Table) 04/14/21 04/15/21 04/15/21 Range/Units 18:03 00:28 05:44 WBC (3.8-10.6) k/uL RBC (3.80-5.40) m/uL Hgb (11.4-16.0) gm/dL Hct (34.0-46.0) % MCHC (31.0-37.0) g/dL Plt Count (150-450) k/uL Neutrophils # (1.3-7.7) k/uL ABG pH (7.35-7.45) ABG pO2 (83-108) mmHg ABG HCO3 (21-25) mmol/L ABG Total CO2 (19-24) mmol/L ABG O2 Saturation (94-97) % Sodium (137-145) mmol/L Potassium (3.5-5.1) mmol/L Carbon Dioxide (22-30) mmol/L Creatinine (0.52-1.04) mg/dL Glucose (74-99) mg/dL POC Glucose (mg/dL) 244 H 102 H 201 H (75-99) mg/dL Calcium (8.4-10.2) mg/dL AST (14-36) U/L ALT (4-34) U/L Total Protein (6.3-8.2) g/dL Albumin (3.5-5.0) g/dL 04/15/21 04/15/21 04/15/21 Range/Units 05:50 11:13 11:13 WBC 12.7 H (3.8-10.6) k/uL RBC 3.12 L (3.80-5.40) m/uL Hgb 9.4 L (11.4-16.0) gm/dL Hct 30.3 L (34.0-46.0) % MCHC 30.9 L (31.0-37.0) g/dL Plt Count 493 H (150-450) k/uL Neutrophils # 10.7 H (1.3-7.7) k/uL ABG pH 7.55 H (7.35-7.45) ABG pO2 61 L (83-108) mmHg ABG HCO3 31 H (21-25) mmol/L ABG Total CO2 32 H (19-24) mmol/L ABG O2 Saturation 93.5 L (94-97) % Sodium 135 L (137-145) mmol/L Potassium 3.4 L (3.5-5.1) mmol/L Carbon Dioxide 32 H (22-30) mmol/L Creatinine 0.40 L (0.52-1.04) mg/dL Glucose 137 H (74-99) mg/dL POC Glucose (mg/dL) (75-99) mg/dL Calcium 8.2 L (8.4-10.2) mg/dL AST 40 H (14-36) U/L ALT 45 H (4-34) U/L Total Protein 5.5 L (6.3-8.2) g/dL Albumin 2.5 L (3.5-5.0) g/dL 04/15/21 Range/Units 11:29 WBC (3.8-10.6) k/uL RBC (3.80-5.40) m/uL Hgb (11.4-16.0) gm/dL Hct (34.0-46.0) % MCHC (31.0-37.0) g/dL Plt Count (150-450) k/uL Neutrophils # (1.3-7.7) k/uL ABG pH (7.35-7.45) ABG pO2 (83-108) mmHg ABG HCO3 (21-25) mmol/L ABG Total CO2 (19-24) mmol/L ABG O2 Saturation (94-97) % Sodium (137-145) mmol/L Potassium (3.5-5.1) mmol/L Carbon Dioxide (22-30) mmol/L Creatinine (0.52-1.04) mg/dL Glucose (74-99) mg/dL POC Glucose (mg/dL) 132 H (75-99) mg/dL Calcium (8.4-10.2) mg/dL AST (14-36) U/L ALT (4-34) U/L Total Protein (6.3-8.2) g/dL Albumin (3.5-5.0) g/dL Assessment and Plan Assessment: Impression: Acute hypoxic respiratory failure secondary to COVID-19 pneumonia, requiring intubation and mechanical ventilation on 03/25/21, patient received tracheostomy on 04/05 remains intubated and mechanically ventilated. Patient was transitioned today to a trach collar, she was on IMV pressure support mode of mechanical ventilation for the last couple of days. Today we'll try the patient on trach collar at 50%. Elevated inflammatory markers and elevated d-dimer secondary to above. Improving. Type 2 diabetes. Hypothyroidism. Dyslipidemia. Pneumomediastinum, resolved. Acute metabolic alkalosis/contraction alkalosis secondary to diuretics. Hence we will hold Lasix today. And hydrate the patient cautiously. Recommendation: Trial of weaning today with switching the patient to a trach collar 50%. Hold diuretics. Nutritional support/enteral feeding GI prophylaxis. Continue Lovenox Continue COVID-19 cocktail. Use small doses of Ativan as needed for generalized anxiety Physical therapy to evaluate. Continue to monitor labs. Continue Lovenox. Remains critically ill. Not quite ready to be transferred out of the ICU. environmental services tech to evaluate for potential placement and rehab. Critical care time is over 30 minutes. Time with Patient: Greater than 30
[2021-04-15] MEDS: POTASSIUM BICARB-CITRIC ACID 25 MEQ TABLET.EFF PO SCH ×2 (12:45→14:36)
[2021-04-15 13:30] VITALS: BMI 33.3
--- NOTE | 2021-04-15 14:56 | P.PN ---
Subjective Progress Note Date: 04/15/21 CHIEF COMPLAINT: : Coronavirus vent dependent respiratory failure HISTORY OF PRESENT ILLNESS: The patient is a 65-year-old female diagnosed with coronavirus an acute hypoxia with respiratory failure also has severe calorie protein malnutrition. She is status post tracheostomy and gastrostomy tube placement. She is now on pressor support. ROS: No fevers or chills. No new chest pain. No new neurological event PHYSICAL EXAM: VITAL SIGNS: Reviewed CONSTITUTIONAL: Well developed and in no acute distress. EYES: Conjuctivae without sclera icterus. Extraocular movements grossly intact. HEAD, EARS, NOSE, THROAT: Moist buccal mucosa. Head is atraumatic, normocephalic. No nasal drainage. Tracheostomy intact. RESPIRATORY: On mechanical ventilatory management and pressure support. CARDIOVASCULAR: Palpable 2+ radial pulses. ABDOMEN: Gastrostomy tube intact. MUSCULOSKELETAL: No clubbing. No cyanosis. SKIN: Good skin turgor. Well perfused. NEUROLOGIC: No focal or lateralizing signs. PSYCH: Intubated and sedated CLINICAL LABS: Reviewed. WBC elevated 12.7. Hemoglobin low at 9.4 ASSESSMENT: 1. Acute hypoxic respiratory failure and mechanical ventilation 2. Severe protein malnutrition status post gastrostomy tube placement. 3. COVID-19 pneumonia 4. Status post tracheostomy PLAN: 1. Vent management per intensive care unit 2. Supportive management for coronavirus pneumonia Objective - Vital Signs Vital signs: Vital Signs Temp 98.3 F 04/15/21 12:00 Pulse 86 04/15/21 14:30 Resp 17 04/15/21 14:30 BP 143/72 04/15/21 14:30 Pulse Ox 95 04/15/21 14:30 Intake & Output 04/14/21 04/15/21 04/15/21 18:59 06:59 18:59 Intake Total 664 900 1123 Output Total 3489 398 2944 Balance -760 13 84 Weight 82.7 kg 82.7 kg Intake: IV 725 889 8444 Ampicillin-Sulbactam 1.5 50 gm In Sodium Chloride 0.9 % 50 ml @ 100 mls/hr IVPB Q6HR [facility] Rx#:[id number] Sodium Chloride 0.9% 1, 260 220 140 000 ml @ 20 mls/hr IV . Q24H [facility] Rx#:[id number] Sodium Chloride 0.9% 1, 1000 000 ml @ 999 mls/hr IV . Q1H1M [facility] Rx#:[id number] pressure bag 39 33 15 Intake, IV Titration 250 Amount Clevidipine Butyrate 25 50 mg In Empty Bag 1 bag @ 1 MG/HR 2 mls/hr IV .Q24H [facility] Rx#:[id number] Potassium Chloride 10 meq 200 In Water For Injection 1 100ml.bag @ 100 mls/hr IVPB Q1HR [facility] Rx#: [id number] Tube Feeding 351 270 189 Output: Urine 8559 691 4601 Other: Voiding Method Indwelling Catheter Indwelling Catheter Indwelling Catheter # Bowel Movements 1 ABP, PAP, CO, CI - Last Documented Arterial Blood Pressure 150/99 - Labs CBC & Chem 7: 04/15/21 11:13 04/15/21 11:13 Labs: Abnormal Lab Results - Last 24 Hours (Table) 04/14/21 04/15/21 04/15/21 Range/Units 18:03 00:28 05:44 WBC (3.8-10.6) k/uL RBC (3.80-5.40) m/uL Hgb (11.4-16.0) gm/dL Hct (34.0-46.0) % MCHC (31.0-37.0) g/dL Plt Count (150-450) k/uL Neutrophils # (1.3-7.7) k/uL ABG pH (7.35-7.45) ABG pO2 (83-108) mmHg ABG HCO3 (21-25) mmol/L ABG Total CO2 (19-24) mmol/L ABG O2 Saturation (94-97) % Sodium (137-145) mmol/L Potassium (3.5-5.1) mmol/L Carbon Dioxide (22-30) mmol/L Creatinine (0.52-1.04) mg/dL Glucose (74-99) mg/dL POC Glucose (mg/dL) 244 H 102 H 201 H (75-99) mg/dL Calcium (8.4-10.2) mg/dL AST (14-36) U/L ALT (4-34) U/L Total Protein (6.3-8.2) g/dL Albumin (3.5-5.0) g/dL 04/15/21 04/15/21 04/15/21 Range/Units 05:50 11:13 11:13 WBC 12.7 H (3.8-10.6) k/uL RBC 3.12 L (3.80-5.40) m/uL Hgb 9.4 L (11.4-16.0) gm/dL Hct 30.3 L (34.0-46.0) % MCHC 30.9 L (31.0-37.0) g/dL Plt Count 493 H (150-450) k/uL Neutrophils # 10.7 H (1.3-7.7) k/uL ABG pH 7.55 H (7.35-7.45) ABG pO2 61 L (83-108) mmHg ABG HCO3 31 H (21-25) mmol/L ABG Total CO2 32 H (19-24) mmol/L ABG O2 Saturation 93.5 L (94-97) % Sodium 135 L (137-145) mmol/L Potassium 3.4 L (3.5-5.1) mmol/L Carbon Dioxide 32 H (22-30) mmol/L Creatinine 0.40 L (0.52-1.04) mg/dL Glucose 137 H (74-99) mg/dL POC Glucose (mg/dL) (75-99) mg/dL Calcium 8.2 L (8.4-10.2) mg/dL AST 40 H (14-36) U/L ALT 45 H (4-34) U/L Total Protein 5.5 L (6.3-8.2) g/dL Albumin 2.5 L (3.5-5.0) g/dL 04/15/21 Range/Units 11:29 WBC (3.8-10.6) k/uL RBC (3.80-5.40) m/uL Hgb (11.4-16.0) gm/dL Hct (34.0-46.0) % MCHC (31.0-37.0) g/dL Plt Count (150-450) k/uL Neutrophils # (1.3-7.7) k/uL ABG pH (7.35-7.45) ABG pO2 (83-108) mmHg ABG HCO3 (21-25) mmol/L ABG Total CO2 (19-24) mmol/L ABG O2 Saturation (94-97) % Sodium (137-145) mmol/L Potassium (3.5-5.1) mmol/L Carbon Dioxide (22-30) mmol/L Creatinine (0.52-1.04) mg/dL Glucose (74-99) mg/dL POC Glucose (mg/dL) 132 H (75-99) mg/dL Calcium (8.4-10.2) mg/dL AST (14-36) U/L ALT (4-34) U/L Total Protein (6.3-8.2) g/dL Albumin (3.5-5.0) g/dL Assessment and Plan (1) Acute respiratory failure with hypoxia Current Visit: Yes Status: Acute Code(s): J96.01 - ACUTE RESPIRATORY FAILURE WITH HYPOXIA SNOMED Code(s): 86153402 (2) Pneumonia due to COVID-19 virus Current Visit: Yes Status: Acute Code(s): U07.1 - COVID-19; J12.82 - PNEUMONIA DUE TO CORONAVIRUS DISEASE 2018 SNOMED Code(s): 701489685594696541 (3) Tracheostomy in place Current Visit: Yes Status: Acute Code(s): Z93.0 - TRACHEOSTOMY STATUS SNOMED Code(s): 087742783 (4) Gastrostomy in place Current Visit: Yes Status: Acute Code(s): Z93.1 - GASTROSTOMY STATUS SNOMED Code(s): 292100518 (5) Severe protein-calorie malnutrition Current Visit: Yes Status: Acute Code(s): E43 - UNSPECIFIED SEVERE PROTEIN- CALORIE MALNUTRITION SNOMED Code(s): 822149323 (6) Morbid obesity due to leptin deficiency Current Visit: Yes Status: Acute Code(s): E66.8 - OTHER OBESITY; E88.89 - OTHER SPECIFIED METABOLIC DISORDERS SNOMED Code(s): 810815103 (7) BMI 36.0-36.9,adult Current Visit: Yes Status: Acute Code(s): Z68.36 - BODY MASS INDEX [BMI] 36.0-36.9, ADULT SNOMED Code(s): 754405325
[2021-04-15 17:20] LABS: Glucose,Whole Blood 211 mg/dL (75-99)
[2021-04-15] MEDS: ATORVASTATIN 40 MG TAB PO SCH (20:18)
[2021-04-15] MEDS: lisinopriL 10 MG TAB PO SCH (20:18)
[2021-04-15 23:39] LABS: Glucose,Whole Blood 122 mg/dL (75-99)
[2021-04-16] MEDS: SODIUM CHLORIDE 0.9% 1,000 ML IV SCH (03:51)
[2021-04-16 05:29] LABS: Glucose,Whole Blood 213 mg/dL (75-99)
[2021-04-16] MEDS: INSULIN ASPART (NovoLOG) 100 UNIT/ML VIAL SQ SCH ×2 (05:41→11:48)
[2021-04-16] MEDS: LEVOTHYROXINE 75 MCG TAB PO SCH (05:41)
[2021-04-16 05:52] LABS: HCT 30.7 % (34.0-46.0); HGB 9.7 gm/dL (11.4-16.0); Hypochromasia Moderate; MCH 30.6 pg (25.0-35.0); MCHC 31.5 g/dL (31.0-37.0); MCV 97.1 fL (80.0-100.0); Mean Platelet Volume 7.9; Platelet Count 483 k/uL (150-450); RBC 3.16 m/uL (3.80-5.40); RDW 15.1 % (11.5-15.5); WBC 12.5 k/uL (3.8-10.6)
[2021-04-16 06:02] LABS: ALT 49 U/L (4-34); AST 49 U/L (14-36); African American GFR (CKD) >90 (>60 ml/min/1.73 sqM); Albumin 2.8 g/dL (3.5-5.0); Alkaline Phosphatase 87 U/L (38-126); Anion Gap 6 mmol/L; Blood Urea Nitrogen 14 mg/dL (7-17); Calcium 8.5 mg/dL (8.4-10.2); Carbon Dioxide 30 mmol/L (22-30); Chloride 98 mmol/L (98-107); Glucose 208 mg/dL (74-99); Non-African American GFR(CKD) >90 (>60 ml/min/1.73 sqM); Potassium 3.6 mmol/L (3.5-5.1); Sodium 134 mmol/L (137-145); Total Bilirubin 0.5 mg/dL (0.2-1.3); Total Protein 5.8 g/dL (6.3-8.2)
[2021-04-16] MEDS ORDERED: Potassium Replacement Protocol 1 EACH MISC MISCELLANE PRN (06:36)
[2021-04-16] MEDS ORDERED: POTASSIUM BICARB-CITRIC ACID 25 MEQ TABLET.EFF PO SCH ×2 (06:59)
[2021-04-16] MEDS: INSULIN DETEMIR (LEVEMIR) 100 UNIT/ML SYR SQ SCH (08:42)
[2021-04-16] MEDS: ZINC SULFATE 220 MG CAP PO SCH (08:43)
[2021-04-16] MEDS: PANTOPRAZOLE 40 MG/10 ML VIAL IVP SCH (08:43)
[2021-04-16] MEDS: CHOLECALCIFEROL 25 MCG (1000 IU) TABLET PO SCH (08:43)
[2021-04-16] MEDS: ENOXAPARIN 40 MG/0.4 ML SYRINGE SQ SCH (08:43)
[2021-04-16] MEDS: NOREPINEPHRINE 8 MG in SODIUM CHLORIDE 0.9% 250 ML IV SCH (08:43)
[2021-04-16] MEDS: ASCORBIC ACID 500 MG TAB PO SCH (08:44)
[2021-04-16] MEDS: DEXAMETHASONE SOD PHOSPHATE 10 MG/ML 1 ML VIAL IVP SCH (08:44)
[2021-04-16] MEDS: ALBUTEROL HFA INHALER INHALATION SCH (09:11)
[2021-04-16] MEDS: CHLORHEXIDINE GLUCONATE 15 ML CUP MUCOUS MEM SCH (09:28)
[2021-04-16 11:40] LABS: Glucose,Whole Blood 153 mg/dL (75-99)
--- NOTE | 2021-04-16 11:46 | P.DS ---
Providers Date of admission: 03/18/21 19:35 Expected date of discharge: 04/16/21 Attending physician: Isidoro Messina MD Consults: 03/18/21 19:55 Consult Physician Urgent Consulting Provider: Martínez Mars Consult Reason/Comments: covid hypoxia Do you want consulting provider notified?: Yes 04/04/21 09:25 Consult Physician Routine Consulting Provider: Edward Alvarez Consult Reason/Comments: Trach/PEG Do you want consulting provider notified?: Yes Primary care physician: Karely Bryant Hospital Course: Final diagnosis Acute hypoxic respiratory failure secondary to COVID-19 pneumonia, requiring intubation and mechanical ventilation on 03/25/21, patient received tracheostomy on 04/05 Elevated inflammatory markers and elevated d-dimer secondary to above. Type 2 diabetes. Hypothyroidism. Dyslipidemia. Pneumomediastinum, resolved. GI prophylaxis DVT prophylaxis Full code Discharge disposition Patient is being discharged in a stable condition with guarded prognosis [facility]. Patient will follow-up with Dr. Karely Bryant in the outpatient setting upon discharge. Patient is to continue with vitamin and zinc supplementation. Recommend repeat labs in 2-3 days. Total time taken is greater than 35 minutes. Hospital course This is a 65-year-old female who was recently admitted acute hypoxemic respiratory failure requiring intubation and mechanical ventilation ultimately requiring tracheostomy and PEG tube placement from COVID-19 bilateral pneumonia. Patient has had prolonged hospitalization in the ICU and is scheduled to be [facility]. Patient is currently on tracheostomy along with tube feedings as discussed below and will continue. Patient will also continue on a Decadron taper on discharge along with vitamin and zinc supplements. Recommend repeat labs in 2-3 days to monitor CBC and CMP in the outpatient setting. Currently no reports of chest pain or palpitations per nursing staff. Patient is afebrile. Patient tolerating tube feeds and will continue current regimen as discussed below. Patient will be discharged [facility] today with guarded prognosis. On exam vital signs are stable. Cardio S1, S2 are muffled. Respiratory system shows diminished breath sounds at the bases with some bilateral scattered rhonchi noted. Abdomen is soft and obese, and nontender. Nervous system shows diffuse weakness. Please refer to medication reconciliation sheet for a list of medications. Patient Condition at Discharge: Fair Plan - Discharge Summary Discharge Rx Participant: No New Discharge Prescriptions: New dexAMETHasone ORAL [Hexadrol] 4 mg PO DAILY 7 Days #7 tab Insulin Detemir (Levemir) [Levemir] 10 unit SQ DAILY@0700 ml INSULIN ASPART (NovoLOG) [NovoLOG (formulary)] 0 unit SQ Q6H ml Chlorhexidine Gluconate [Peridex] 15 ml MUCOUS MEM BID ml lisinopriL [Zestril] 10 mg PO HS tab Enoxaparin [Lovenox] 40 mg SQ DAILY each Zinc Sulfate [Orazinc] 220 mg PO DAILY cap Acetaminophen Tab [Tylenol] 650 mg PO Q4HR PRN tab PRN Reason: Fever And/ Or Pain Albuterol Inhaler [Ventolin Hfa Inhaler] 2 puff INHALATION RT-QID gm Albuterol Inhaler [Ventolin Hfa Inhaler] 2 puff INHALATION Q4H PRN gm PRN Reason: Shortness Of Breath Or Wheezing Ascorbic Acid [Vitamin C] 500 mg PO DAILY tab Cholecalciferol [Vitamin D3 (25 Mcg = 1000 Iu)] 50 mcg PO DAILY tablet Continue metFORMIN HCL [Glucophage] 1,000 mg PO BID Glimepiride [Amaryl] 1 mg PO BID Atorvastatin [Lipitor] 40 mg PO DAILY Levothyroxine Sodium [Synthroid] 75 mcg PO DAILY Discontinued ramipriL [Altace] 2.5 mg PO HS Semaglutide [Ozempic] 0.25 mg SQ SA Discharge Medication List Atorvastatin [Lipitor] 40 mg PO DAILY 09/28/15 [History] Glimepiride [Amaryl] 1 mg PO BID 09/28/15 [History] metFORMIN HCL [Glucophage] 1,000 mg PO BID 09/28/15 [History] Levothyroxine Sodium [Synthroid] 75 mcg PO DAILY 03/18/21 [History] Acetaminophen Tab [Tylenol] 650 mg PO Q4HR PRN tab 04/16/21 [Rx] Albuterol Inhaler [Ventolin Hfa Inhaler] 2 puff INHALATION Q4H PRN gm 04/16/21 [Rx] Albuterol Inhaler [Ventolin Hfa Inhaler] 2 puff INHALATION RT-QID gm 04/16/21 [Rx] Ascorbic Acid [Vitamin C] 500 mg PO DAILY tab 04/16/21 [Rx] Chlorhexidine Gluconate [Peridex] 15 ml MUCOUS MEM BID ml 04/16/21 [Rx] Cholecalciferol [Vitamin D3 (25 Mcg = 1000 Iu)] 50 mcg PO DAILY tablet 04/16/21 [Rx] Enoxaparin [Lovenox] 40 mg SQ DAILY each 04/16/21 [Rx] INSULIN ASPART (NovoLOG) [NovoLOG (formulary)] 0 unit SQ Q6H ml 04/16/21 [Rx] Insulin Detemir (Levemir) [Levemir] 10 unit SQ DAILY@0700 ml 04/16/21 [Rx] Zinc Sulfate [Orazinc] 220 mg PO DAILY cap 04/16/21 [Rx] dexAMETHasone ORAL [Hexadrol] 4 mg PO DAILY 7 Days #7 tab 04/16/21 [Rx] lisinopriL [Zestril] 10 mg PO HS tab 04/16/21 [Rx] Follow up Appointment(s)/Referral(s): Karely Bryant DO [Primary Care Provider] - 1-2 days Ambulatory/Diagnostic Orders: Complete Blood Count w/diff [LAB.AMB] Location: None Selected Activity/Diet/Wound Care/Special Instructions: Patient is going to [facility] Activity as tolerated Follow-up with pulmonary outpatient Follow-up primary care provider outpatient Continue monitoring Accu-Cheks before meals and at bedtime NovoLog sliding scale 0-150 equals 0 units 151-200 equals 2 units 201-250 equals 4 units 251-300 equals 6 units 301-350 equals 8 units 351-400 equals 10 units Please notify provider if blood sugar is 400 or above Continue with tube feedings of vital AF 1.2 continuous with a goal rate of 27 and free water flushes of 30 mL's every 4 hours Aspiration precautions with head of the bed elevated 30-45 at all times recommend follow-up labs of CBC and CMP in 2-3 days Discharge [facility]
--- NOTE | 2021-04-16 12:55 | P.PN ---
Subjective Progress Note Date: 04/16/21 Principal diagnosis: Acute hypoxic respiratory failure secondary to COVID-19 pneumonia 03/24/2021, the patient is having more difficulty in breathing. This morning, the patient started having worsening shortness of breath and worsening and hypoxemia. The patient is currently on BiPAP at a pressure of 14/8 cm of water. He is quite tachypneic. The respiratory rate is around 34 times a minute and her minute ventilation is above 24 L per minute. She is quite tachypneic and short of breath and she is also tachycardic. Note that, the patient's condition was gradually getting worse over the past several days. The patient was on 9 L of oxygen by nasal cannula and there was progressive rise in her oxygen requirements and she was brought up to 15 L and later on to 100% nonrebreather facemask and currently she is on a BiPAP. At the same time, the patient is being treated with a combination of Decadron and Baricitinib per protocol. She is on Lovenox for DVT prophylaxis 40 mg subcu daily basis. This is consistent with COVID 19 related pneumonia. While on the BiPAP, she underwent a blood gas that showed a pH of 7.46 with a pCO2 of 37 and pO2 of 50. Subsequently, her oxygen saturations improved. Her d-dimer from yesterday was more than 34. Her CRP level was 14 and her LDH level was 657. Rest of the blood work shows a potassium level of 3.4 with a sodium of 140. Reevaluated today on 03/25/2021, patient was transferred to the ICU this morning, she was placed on 100% FiO2, and BiPAP, and her O2 saturations remained marginal. I evaluated the patient in the ICU, and she was made aware that her condition seems to be worsening and she will likely end up requiring intubation and mechanical ventilation. An hour later, the patient decompensated, and she required to be intubated and mechanically ventilated. Patient was placed initially on 100% FiO2, EPAP of 12, tidal volume is 400, rate of 30. ABG is pending. Her d-dimer is 34. The left lites are normal LDH 879 C-reactive protein 15.6. CT angiogram few days ago showed no evidence of pulmonary embo lism. Venous Doppler negative for DVT Reevaluated today on 03/26/2021, patient remains in the ICU, intubated and mechanically ventilated. Patient is on assist control rate of 3 to tidal volume 400 FiO2 80%, PEEP of 14. Changes were made including tidal volume decreased to 375 FiO2 decreased to 70% PEEP increased to 16. Rate remained the same at 32. Patient is on propofol at 50 fentanyl at 0.5 Nimbex at 1.5. She is also on enteral feeding. She is hemodynamically stable, not requiring any pressors. Chest x-ray continues to show bilateral interstitial infiltrates consistent with COVID-19 pneumonia. Patient had negative workup for pulmonary embolism and negative workup for venous Doppler upon admission. ABG today showed a pO2 of 106 pCO2 of 40 pH of 7.39. Her CBC is relatively normal electrolytes are normal renal profile is normal. Reevaluated today on 03/27/2021, remains in the ICU intubated and mechanically ventilated. She is presently on assist control rate of 3 to tidal volume 375 PEEP is 16, FiO2 60%. ABG showed a pO2 of 67 pCO2 44 pH of 7.30. Hence I cut down her FiO2 to 55%. Patient remains on propofol at 40 mcg/kg/m norepinephrine at 0.05 mcg/kg/m Nimbex at 1.5 mcg/kg/ minute, and fentanyl 0.5 mcg/kg/h. Patient remains sedated and paralyzed, her ABG this morning showed a pO2 of 67 pCO2 of 44 pH of 7.30, FiO2 decreased to 55%. However as I was dictating this note, I was notified by the nurse that she developed subcu emphysema, and I'm recommending a stat chest x-ray, to determine if the patient has a new onset normal mediastinum or possibly a pneumothorax. Chest x-ray is pending at the time of this dictation. A shunt remains on enteral feedings. She is requiring a small dose of norepinephrine for hemodynamic instability. Reevaluated today on 03/28/2021, patient remains in the ICU, intubated and mechanically ventilated. Patient is on assist control rate of 32 volume of 375 FiO2 50% PEEP of 16. ABG showed a pO2 of 67 pCO2 of 49 pH of 7.30. Patient is on IV fluid at 1 20 mL/h, up a fall 45 mcg/kg/m, Nimbex at 1.5 mcg/kg/m, fentanyl 0.5 mcg/kg/h, she is off norepinephrine. CBC showed WBC count of 11.8 hemoglobin is 12.2. Hematocrit is 39.4. Electrolytes are normal renal profile is normal. Chest x-ray continues to show bilateral infiltrates, and there is evidence of pneumomediastinum and subcutaneous emphysema. Patient remains on th e COVID-19 cocktail, she is on echo from 6 mg IV push daily she is also on Lovenox 40 mg subcu twice a day. Patient is also receiving baricitinib . Patient is also on enteral feedings. Reevaluated today on 03/29/2021, remains in the ICU, intubated and mechanically ventilated. Patient is on assist control rate of 32, FiO2 of 50% tidal volume of 375 PEEP 16, decreased down to 14 today. And increase her FiO2 to 55%. ABG showed a pO2 of 70 pCO2 49 pH of 7.33 WBC count is 16.5 hemoglobin is 12 electrolytes are normal renal profile is normal. Patient is on multiple drips including IV fluid at 120 mL/h and I cut it down to KVO she is on enteral feeding via orogastric tube. Nimbex 2 mcg/kg/m propofol 60 mcg/kg/m fentanyl 0.75 mcg/kg/h. Patient is now off norepinephrine. Chest x-ray continues to show bilateral infiltrates, and worsening subcu emphysema, hence I went ahead and placed 3 different 14-Turkmen catheters, one placed in the left supraclavicular area, one in the right supraclavicular area, and one in the anterior chest wall on the left side. Mostly to decompressive subcutaneous emphysema. These were placed uneventfully, and place and a sterile field. And covered with dressing. Patient is on the COVID-19 cocktail. She is also on baricitinib Decadron 6 mg IV push daily, Lovenox 40 mg subcu twice a day, she is also on Protonix 40 mg IV push daily and zinc. Reevaluated today on 03/30/2021, patient remains in the ICU, intubated and mechanically ventilated. She remains on assist control rate of 32 tidal volume 375 FiO2 60% and I cut it down to 55% PEEP remains at 10. ABG showed a pO2 of 59 pCO2 of 39 pH of 7.44. Chest x-ray showed bilateral infiltrates, persistent subcutaneous emphysema but seems to be less compared to the previous 2 days. No evidence of pneumothorax. Remains on multiple drips including norepinephrine at 0.03 mcg/kg/m, Nimbex at 2 mcg/kg/m, fentanyl at 2.5 mcg/kg/h propofol 50 mcg/kg/m. IV fluid at 20 mL per hour. Patient is on vital AF 26 mL per hour. Chest x-ray again is not showing much of a change. Patient remains on the COVID -19 cocktail including Decadron, Lovenox, Protonix, and she is also on baricitinib Reevaluated today on 03/31/2021, patient remains in the ICU, intubated and mechanically ventilated. She is on assist control rate of 3 to tidal volume 375 FiO2 70% and PEEP at 10 however after reviewing her ABG I recommended increasing the PEEP to 12 and I cut down her FiO2 from 70% to 65%. ABG showed a pO2 of 65 pCO2 of 39 pH of 7.30. Patient remains on Nimbex at 2 mcg/kg/m fentanyl at 2.5 mcg/kg/h propofol at 50 mcg/kg/m. She is also requiring norepinephrine at 0.08 mcg/kg/m, her blood pressure seems to be extremely labile. It is all over the chart. Today I recommended an echocardiogram, I also recommended serum cortisol level on this patient. Her chest x-ray continues to show bilateral infiltrates and subcu emphysema. However the subcu emphysema seems to be regressing. There is no evidence of pneumothorax. WBC count is 11.1 hemoglobin is 11.5 twice a normal renal profile is normal. Transaminases are slightly elevated. Yesterday the patient had positive sputum cultures for staph aureus, it was basically MSSA, hence we discontinued her baricitinib, received a dose of vancomycin, but considering the staph aureus is MSSA, will start the patient on cefepime and discontinue vancomycin and this was already discontinued yesterday. On 04/10/2021 patient seen in follow-up in the intensive care unit, she remains sedated, she has received a tracheostomy, she is connected to the ventilator on assist control mode of ventilation with a rate of 20, tidal volume is 375, FiO2 of 50% and PEEP of 10, this morning's blood gas shows pO2 of 75, pCO2 53, and pH is 7.45 and this was done on the above-mentioned vent settings, she is currently on 0.9 normal saline at a rate 20 ML per hour, Diprivan is a 55 mics per kilo per minute, and fentanyl infusion is a 2 mics per kilo per minute, she is tole rating tube feedings with vital HP at a rate of 19 with a goal of 19. Hemodynamically stable, not requiring any vasopressor support, she is in sinus rhythm with a rate of 105, slightly tachycardic, no fevers overnight, vital signs have been stable. Her peak airway pressure is 29 on the ventilator, and plateau pressure is 24, she has been getting daily dose of IV Lasix 40 mg daily, she is in -1.3 L net fluid balance over the last 24 hours. Her chest x-ray today has been reviewed showing stable bilateral interstitial alveolar infiltrates. No pneumothorax. He remains on Unasyn for evidence of emesis today in the sputum cultures. Her last sputum culture from 04/05/2021 showed MSSA. Her last pro-calcitonin from 04/08/2021 was improving from the original value, and was down to 1.59. Prevacid her labs have been reviewed, with blood cell count was 10.4, hemoglobin is 9.6, platelet count is 545, serum sodium is 134, potassium 3.7, chloride is 96, CO2 is 34, BUN is 12 creatinine 0.45, her LDH is improving and is down to 652 CRP is down to 7.4 on today's labs. Her last d-dimer from 04/07/2021 was 1.46, patient is on prophylactic dose Lovenox 40 mg daily, she remains on Decadron 6 mg daily. Lung sounds reveal coarse breath sounds, generally she remains edematous. Overall she remains an significantly positive fluid balance since admission. Very minimal secretions suctioned from her tracheostomy. Neurologically patient follows simple commands, she attempts to open her eyes this morning even on sedation, we will attempt another sedation holiday today. A very today on 04/11/21, patient remains intubated and mechanically ventilated. She is on assist control rate of 20 tidal volume 375 FiO2 45% and PEEP is down to 8. Patient is status post tracheostomy. She is on propofol at 45, today and planning to hopefully consider still placing the patient on pressure support of 12 and CPAP with 8 pressure. Patient remains on enteral feeding, she has a PEG tube in place, she is status post tracheostomy. Her ABG today showed a pO2 of 66 pCO2 47 pH of 7.53. WBC count is 14.7 hemoglobin 11.4. Renal profile is normal. Patient continues to have a central line in place, and I will recommend a PICC line and DC central line. Dr. rojasdipine 2 mg per hour. And again she is on propofol at 45. Patient is arousable off propofol, and she is generally weak, I plan to at least give the patient weaning trials hopefully today with a pressure support of 12 and CPAP. Chest x-ray continues show bilateral infiltrates. Remains on the COVID-19 cocktail. Remains on multivitamins. She is also on Lovenox 40 mg subcu daily, Lasix 40 mg IV push twice a day. Reevaluated today on 04/12/21, patient remains in the ICU, intubated and mechanically ventilated. Patient is on assist control rate of 20 tidal volume 375 FiO2 45% and PEEP is 8. A shunt remains on multiple drips including clevidipine for elevated blood pressure, she is now off propofol, and she is off fentanyl. She is receiving enteral feeding/vital AF at 10 mL per hour. Today the patient is arousable, she opens her eyes, she is follows simple instructions like wiggling toes and squeezing hands, I have tried the patient initially on a pressure support mode of mechanical ventilation, however she wasn't moving much of tidal volumes and I went ahead and recommended IMV and pressure support mode of mechanical ventilation. She is now on IMV of 8 pressure support of 14 PEEP remains at 8 she is at 45% FiO2. I recommended that we'll continue to hold sedation, I think overall the patient is showing some neurological improvement, however she is not ready to go on trach collar yet. I think the patient will be able to tolerate IMV with pressure support and we'll try to keep her on such mode of mechanical ventilation as long as tolerated. Chest x-ray is showing improvement in her infiltrates. EEG today showed a pO2 of 84 pCO2 41 pH of 7.56. WBC count is 16 hemoglobin 11.5. Electrolytes are normal except low potassium of 3.0 being corrected as per protocol. No profile is normal patient remains on the COVID-19 cocktail, she is also on Unasyn. He is on Decadron 6 mg IV push daily and Lovenox 40 mg subcu daily. Remains on Lasix at 40 mg IV push every 12 hours, she is on Dilaudid when necessary. Reevaluated today on 04/13/2021, patient remains in the ICU, intubated and mechanically ventilated. Patient was placed yesterday on pressure support mode of mechanical ventilation pressure support of 14 she was given on IMV backup rate of 8, and her PEEP was kept at 8. She was on 45% and tidal volume was 375. She seemed to tolerate that quite well yesterday, and she continues to do relatively well. Patient is a bit tachypneic, but she does not seem to be in distress. Hence today I am going to recommend that we get rid of the IMV backup rate and see if she could tolerate pressure support alone may use pressure support of 14 or 16 if necessary. May or may not have to go back to an IMV ba ckup rate. ABG this morning showed a pO2 of 62 pCO2 of 43 pH of 7.58 WBC count is 12.5 hemoglobin is 10.4. Renal profile is normal potassium is a bit low being corrected. LDH is down to 863 and C-reactive protein is down to 6.4. Chest x-ray is showing slight improvement in her bilateral infiltrates. I believe overall the patient is definitely showing signs of recovery from her hypoxic respiratory failure secondary to COVID-19 pneumonia. But she is definitely not receiving the ferguson yet, and I have no plans to transfer the patient out of the ICU at this point yet and she is not yet ready to go on a trach collar. Reevaluated today on 04/14/21, patient remains in the ICU, intubated and m echanically ventilated. However the patient is now on pressure support of 16 IMV of 8 and FiO2 of 45% and I cut it down to 40% her IMV of 8 cut down to 4 remains on tidal volume of 375 and PEEP of 5. Patient is doing well, ABG this morning showed a pO2 of 91 pCO2 41 pH of 7.56. Her electrolytes are normal except for low potassium of 3.2 being corrected as per protocol. Renal profile is normal. Patient is awake, arousable, follows all simple instructions, she is still requiring chiropractor at 5 mg per hour. Her IV fluid at KVO. And she is on vital AF at 27 mL per hour. Tried at bedside to place the patient on lower pressure support, however I could go as low as pressure support of 14 to maintain adequate tidal volumes. And I kept her on pressure support of 15 with IMV of 4. FiO2 cut down from 45% to 40% CBC is relatively unremarkable. Inflammatory markers have trended down significantly LDH is 769 and C-reactive protein is 4.6. Patient remains on the COVID-19 cocktail. Remains on Lasix at 40 mg IV twice a day,, she is on Lovenox 40 mg subcu daily she is also on Unasyn. Reevaluated today on 04/15/21, patient remains in the ICU, intubated and mechanically ventilated, however the patient is on pressure support of 14, IMV of 4 FiO2 of 45% and tidal volume set at 375. PEEP is at 5. Patient is doing well, however she seems to bit anxious and I recommended a one dose of Ativan 0.5 mg given once, the patient down, she seems to be more relaxed, and even on lower pressure support, patient was noted to have decent tidal volumes, then I decided to give the patient a trial of trach collar. Patient was placed on trach collar at 50%, and I have recommended that we hold diuretics, her blood pressure is marginal, and she will be given a fluid bolus. I believe the patie nt is developing a picture of acute metabolic contraction alkalosis, hence Lasix will be discontinued and the patient will be given fluids today. ABG showed a pO2 of 61 pCO2 35 pH of 7.55 her CBC is relatively normal with WBC count of 12.7 hemoglobin is 9.4. Electrolytes are normal bicarb is 32. Chest x-ray continues to show bilateral multifocal airspace disease consistent with COVID-19 pneumonia I believe those are postinflammatory changes from her recent COVID-19 infection/pneumonia and ARDS. Reevaluated today on 04/16/21, patient remains in the ICU, tolerated trach collar, however the patient is marginal at best, and I have the feeling that she will intermittently require nocturnal mechanical ventilation. Today she seems to be comfortable this morning, she is on 40% trach collar, EBC is relatively unremarkable electrolytes are normal renal profile is normal chest x-ray was done today. Objective - Vital Signs Vital signs: Vital Signs Temp 99.4 F 04/16/21 08:00 Pulse 76 04/16/21 10:00 Resp 28 H 04/16/21 10:00 BP 96/49 12/28/21 10:00 Pulse Ox 98 04/16/21 10:00 Intake & Output 04/15/21 04/16/21 04/16/21 18:59 06:59 18:59 Intake Total 1532 395 60 Output Total 1984 1230 360 Balance -453 -835 -300 Weight 82.7 kg 82.5 kg Intake: IV 1235 260 60 Sodium Chloride 0.9% 1, 220 260 60 000 ml @ 20 mls/hr IV . Q24H [facility] Rx#:[id number] Sodium Chloride 0.9% 1, 1000 000 ml @ 999 mls/hr IV . Q1H1M [facility] Rx#:[id number] pressure bag 15 Tube Feeding 297 135 Output: Urine 1984 1230 360 Other: Voiding Method Indwelling Catheter Indwelling Catheter Indwelling Catheter # Bowel Movements 1 ABP, PAP, CO, CI - Last Documented Arterial Blood Pressure 150/99 - Exam GENERAL EXAM: Awake, in no distress, on trach collar. Did not require mechanical ventilation last night, but she is still marginal and she may intermittently required nocturnally ventilatory support HEAD: Normocephalic/atraumatic. ENT: PERRLA, EOMI, nonicteric, masses, no JVD CHEST: No chest wall deformity. Symmetrical expansion. LUNGS: Records and rales at the bases. CVS: Regular rate and rhythm, normal S1 and S2, no gallops, no murmurs, no rubs ABDOMEN: Soft, nontender. No hepatosplenomegaly, normal bowel sounds, no guarding or rigidity. Mid epigastric PEG tube is in place, incision site is clean dry and intact EXTREMITIES: No clubbing, trace of bipedal edema. Skin: No rashes. CENTRAL NERVOUS SYSTEM: Awake, alert oriented 3, no gross focal deficits. Patient is generally weak however. All instructions without any difficulty. Psychiatric: Anxious mood, normal affect, normal mental status examination. - Labs CBC & Chem 7: 04/16/21 05:26 04/16/21 05:26 Labs: Abnormal Lab Results - Last 24 Hours (Table) 04/15/21 04/15/21 04/16/21 Range/Units 17:19 23:37 05:26 WBC 12.5 H (3.8-10.6) k/uL RBC 3.16 L (3.80-5.40) m/uL Hgb 9.7 L (11.4-16.0) gm/dL Hct 30.7 L (34.0-46.0) % Plt Count 483 H (150-450) k/uL Sodium (137-145) mmol/L Creatinine (0.52-1.04) mg/dL Glucose (74-99) mg/dL POC Glucose (mg/dL) 211 H 122 H (75-99) mg/dL AST (14-36) U/L ALT (4-34) U/L Total Protein (6.3-8.2) g/dL Albumin (3.5-5.0) g/dL 04/16/21 04/16/21 04/16/21 Range/Units 05:26 05:28 11:39 WBC (3.8-10.6) k/uL RBC (3.80-5.40) m/uL Hgb (11.4-16.0) gm/dL Hct (34.0-46.0) % Plt Count (150-450) k/uL Sodium 134 L (137-145) mmol/L Creatinine 0.34 L (0.52-1.04) mg/dL Glucose 208 H (74-99) mg/dL POC Glucose (mg/dL) 213 H 153 H (75-99) mg/dL AST 49 H (14-36) U/L ALT 49 H (4-34) U/L Total Protein 5.8 L (6.3-8.2) g/dL Albumin 2.8 L (3.5-5.0) g/dL Assessment and Plan Assessment: Impression: Acute hypoxic respiratory failure secondary to COVID-19 pneumonia, requiring intubation and mechanical ventilation on 03/25/21, patient received tracheostomy on 04/05 remains intubated and mechanically ventilated. Patient was transitioned today to a trach collar, she was on IMV pressure support mode of mechanical ventilation for the last couple of days. Patient has been on trach collar for the last 24 hours. Elevated inflammatory markers and elevated d-dimer secondary to above. Improving. Type 2 diabetes. Hypothyroidism. Dyslipidemia. Pneumomediastinum, resolved. Recommendation: Continue trach collar Nocturnal ventilatory support if necessary. We'll clear the patient to go to [facility] today if accepted. In the meantime continue treatment plan as outlined and supportive care measures. Strongly recommending rehabilitation and [facility] referral. Time with Patient: Less than 30
[2021-04-16 14:15] VITALS: BP 141/103; PULSE 88; RESP 20; TEMP 99.5
--- NOTE | 2021-04-17 01:04 | P.PN ---
Subjective From records This is 65-year-old female with past medical history of diabetes mellitus, hyperlipidemia, hypertension, osteoarthritis, no smoking history presented to the ER with worsening dyspnea 10 days Patient found to have bilateral covert pneumonia with secondary hypoxia severe enough to need intubation and mechanical ventilation. With superimposed bacterial infection of the lung with sputum culture growing staph and patient is placed on IV vancomycin. Patient has increased inflammatory markers LDH 879, CRP 1-5.6. WBC elevated at 13 K, liver enzymes mildly elevated. Chest x-ray showing bilateral pulmonary infiltrate. Broadcalcitonin elevated 1.5. She remains on Lovenox 40 mg twice a day as Doppler of the lower extremity and CTA of the chest are negative for clots. Also she is Protonix, dexamethasone, vitamin C, D and zinc. Metformin and Amaryl are helped sugar controlled on sliding scale 04/06/2021 Patient remains in the ICU sedated and intubated with pulmonary/critical care team following her closely. She still needs high PEEP valvule of 15. And she still tachypneic but no had a fever of 100.5 yesterday. WBC 10.0. Mild increased liver enzymes which is the same. Chest x-ray showing multifocal pneumonia. Sputum culture growing staph which is basically MSSA. And patient currently is covered with IV Unasyn by pulmonary team. Also she is on dexamethasone, vitamin C, vitamin D, zinc and Lovenox 40 mg twice a day and Protonix 04/07/2021 Patient presents with bilateral covert pneumonia and hypoxia requiring int ubation and mechanical ventilation. Patient is monitored closely in the ICU by pulmonary/critical care team. She is currently with FiO2 of 50% and PEEP of 15. Nimbex was discontinued today. On admission also patient had a fever secondary to MSSA pneumonia with super bacterial infection and now was covered with Unasyn. However she has no leukocytosis and CBC showing WBC 8.3, hemoglobin 9.7 and platelet count 508. Other labs showing slight improvement with LDH down to 716 and CRP 20.6. Liver enzymes slightly trending down most likely secondary to her covert infection. Chest x-ray showing bilateral pneumonia. Currently she is on dexamethasone, multiple vitamins Subjective 04/15/2021 Patient was admitted with bilateral covid pneumonia and hypoxia requiring mechanical ventilation. She is status post tracheostomy and PEG tube placement on 04/05 Patient remains in stable condition in the ICU Pulmonary team recommended patient to be discharged to [facility] filter worker on the case and prior authorization is pending for LTAC Objective - Vital Signs Vital signs: Vital Signs Temp 98.3 F 04/15/21 12:00 Pulse 85 04/15/21 12:00 Resp 35 H 04/15/21 12:00 BP 109/56 04/15/21 12:00 Pulse Ox 100 04/15/21 12:00 Intake & Output 04/14/21 04/15/21 04/15/21 18:59 06:59 18:59 Intake Total 950 523 250 Output Total 8390 247 1335 Balance -760 13 -810 Weight 82.7 kg Intake: IV 349 253 115 Ampicillin-Sulbactam 1.5 50 gm In Sodium Chloride 0.9 % 50 ml @ 100 mls/hr IVPB Q6HR [facility] Rx#:[id number] Sodium Chloride 0.9% 1, 260 220 100 000 ml @ 20 mls/hr IV . Q24H [facility] Rx#:[id number] pressure bag 39 33 15 Intake, IV Titration 250 Amount Clevidipine Butyrate 25 50 mg In Empty Bag 1 bag @ 1 MG/HR 2 mls/hr IV .Q24H [facility] Rx#:[id number] Potassium Chloride 10 meq 200 In Water For Injection 1 100ml.bag @ 100 mls/hr IVPB Q1HR [facility] Rx#: [id number] Tube Feeding 351 270 135 Output: Urine 7943 672 3354 Other: Voiding Method Indwelling Catheter Indwelling Catheter Indwelling Catheter # Bowel Movements 1 ABP, PAP, CO, CI - Last Documented Arterial Blood Pressure 150/99 - Exam -GENERAL: The patient is intubated . Patient status post tracheostomy HEENT: Pupils are round and equally reacting to light. EOMI. No scleral icterus. No conjunctival pallor. Normocephalic, atraumatic. No pharyngeal erythema. No thyromegaly. CARDIOVASCULAR: S1 and S2 present. No murmurs, rubs, or gallops. -PULMONARY: Chest is clear to auscultation, no wheezing. b/l crepitation -ABDOMEN: Soft, nontender, nondistended, normoactive bowel sounds. No palpable organomegaly. PEG tube is in place MUSCULOSKELETAL: No joint swelling or deformity. EXTREMITIES: No cyanosis, clubbing, or pedal edema. NEUROLOGICAL: Gross neurological examination did not reveal any focal deficits. SKIN: No rashes. no petechiae. - Labs CBC & Chem 7: 04/16/21 05:26 04/16/21 05:26 Labs: Abnormal Lab Results - Last 24 Hours (Table) 04/14/21 04/15/21 04/15/21 Range/Units 18:03 00:28 05:44 WBC (3.8-10.6) k/uL RBC (3.80-5.40) m/uL Hgb (11.4-16.0) gm/dL Hct (34.0-46.0) % MCHC (31.0-37.0) g/dL Plt Count (150-450) k/uL Neutrophils # (1.3-7.7) k/uL ABG pH (7.35-7.45) ABG pO2 (83-108) mmHg ABG HCO3 (21-25) mmol/L ABG Total CO2 (19-24) mmol/L ABG O2 Saturation (94-97) % Sodium (137-145) mmol/L Potassium (3.5-5.1) mmol/L Carbon Dioxide (22-30) mmol/L Creatinine (0.52-1.04) mg/dL Glucose (74-99) mg/dL POC Glucose (mg/dL) 244 H 102 H 201 H (75-99) mg/dL Calcium (8.4-10.2) mg/dL AST (14-36) U/L ALT (4-34) U/L Total Protein (6.3-8.2) g/dL Albumin (3.5-5.0) g/dL 04/15/21 04/15/21 04/15/21 Range/Units 05:50 11:13 11:13 WBC 12.7 H (3.8-10.6) k/uL RBC 3.12 L (3.80-5.40) m/uL Hgb 9.4 L (11.4-16.0) gm/dL Hct 30.3 L (34.0-46.0) % MCHC 30.9 L (31.0-37.0) g/dL Plt Count 493 H (150-450) k/uL Neutrophils # 10.7 H (1.3-7.7) k/uL ABG pH 7.55 H (7.35-7.45) ABG pO2 61 L (83-108) mmHg ABG HCO3 31 H (21-25) mmol/L ABG Total CO2 32 H (19-24) mmol/L ABG O2 Saturation 93.5 L (94-97) % Sodium 135 L (137-145) mmol/L Potassium 3.4 L (3.5-5.1) mmol/L Carbon Dioxide 32 H (22-30) mmol/L Creatinine 0.40 L (0.52-1.04) mg/dL Glucose 137 H (74-99) mg/dL POC Glucose (mg/dL) (75-99) mg/dL Calcium 8.2 L (8.4-10.2) mg/dL AST 40 H (14-36) U/L ALT 45 H (4-34) U/L Total Protein 5.5 L (6.3-8.2) g/dL Albumin 2.5 L (3.5-5.0) g/dL 04/15/21 Range/Units 11:29 WBC (3.8-10.6) k/uL RBC (3.80-5.40) m/uL Hgb (11.4-16.0) gm/dL Hct (34.0-46.0) % MCHC (31.0-37.0) g/dL Plt Count (150-450) k/uL Neutrophils # (1.3-7.7) k/uL ABG pH (7.35-7.45) ABG pO2 (83-108) mmHg ABG HCO3 (21-25) mmol/L ABG Total CO2 (19-24) mmol/L ABG O2 Saturation (94-97) % Sodium (137-145) mmol/L Potassium (3.5-5.1) mmol/L Carbon Dioxide (22-30) mmol/L Creatinine (0.52-1.04) mg/dL Glucose (74-99) mg/dL POC Glucose (mg/dL) 132 H (75-99) mg/dL Calcium (8.4-10.2) mg/dL AST (14-36) U/L ALT (4-34) U/L Total Protein (6.3-8.2) g/dL Albumin (3.5-5.0) g/dL Assessment and Plan Assessment: Bilateral Covid pneumonia with bacterial superinfection secondary to staff Acute hypoxic respiratory failure Increased inflammatory markers Possible pulmonary infection with staph MSSA and sputum culture Diabetes mellitus, type II Hypothyroidism Hyperlipidemia Plan: This is a pleasant 65 years old female who presents with Bilateral Covid pneumonia and hypoxia Continue with vitamin C, vitamin D, and zinc. Continue with dexamethasone Pulmonary team consult Continue with intubation and mechanical ventilation Pulmonary team cleared her to go to long-term caring facility filter worker on the case and prior authorization is pending for LTAC Labs and medication were reviewed.. Continue same treatment. Continue with symptomatic treatment. Resume home medication. Monitor lytes and vitals. DVT and GI prophylaxis. Further recommendations as per clinical course of the patient DVT prophylaxis: Subcutaneous Lovenox GI Prophylaxis: Ppi Prognosis is guarded
[2021-04-17] MEDS ORDERED: dexAMETHasone 4 MG TAB PO SCH (09:00)
== END 2021-04-16 13:35 | DRG 4 ==
LOC: EC 13:25 → 4SSUR 19:35 → 2SICU 03-25 08:35
PROVIDERS: ADMIT Family Medicine; ATTEND Family Medicine
PROC: 3E0333Z Introduction of Anti-inflammatory into Peripheral Vein, Percutaneous Approach (ICD-10-PCS; 2021-03-18)
PROC: 5A0945A Assistance with Respiratory Ventilation, 24-96 Consecutive Hours, High Flow/Velocity Cannula (ICD-10-PCS; 2021-03-19)
PROC: XW0DXM6 Introduction of Baricitinib into Mouth and Pharynx, External Approach, New Technology Group 6 (ICD-10-PCS; 2021-03-22)
PROC: 5A1955Z Respiratory Ventilation, Greater than 96 Consecutive Hours (ICD-10-PCS; 2021-03-25)
PROC: 0BH17EZ Insertion of Endotracheal Airway into Trachea, Via Natural or Artificial Opening (ICD-10-PCS; 2021-03-25)
PROC: 0DH67UZ Insertion of Feeding Device into Stomach, Via Natural or Artificial Opening (ICD-10-PCS; 2021-03-25)
PROC: 02HV33Z Insertion of Infusion Device into Superior Vena Cava, Percutaneous Approach (ICD-10-PCS; 2021-03-25)
PROC: 03HY32Z Insertion of Monitoring Device into Upper Artery, Percutaneous Approach (ICD-10-PCS; 2021-03-25)
PROC: 4A133B1 Monitoring of Arterial Pressure, Peripheral, Percutaneous Approach (ICD-10-PCS; 2021-03-25)
PROC: 4A133J1 Monitoring of Arterial Pulse, Peripheral, Percutaneous Approach (ICD-10-PCS; 2021-03-25)
PROC: 0DH63UZ Insertion of Feeding Device into Stomach, Percutaneous Approach (ICD-10-PCS; 2021-04-05)
PROC: 0B110F4 Bypass Trachea to Cutaneous with Tracheostomy Device, Open Approach (ICD-10-PCS; principal; 2021-04-05 13:20)
PROC: 3E033XZ Introduction of Vasopressor into Peripheral Vein, Percutaneous Approach (ICD-10-PCS; 2021-04-09)
PROC: 05HD33Z Insertion of Infusion Device into Right Cephalic Vein, Percutaneous Approach (ICD-10-PCS; 2021-04-11)
DX: U07.1 COVID-19 (principal); E43 Unspecified severe protein-calorie malnutrition; J12.82 Pneumonia due to coronavirus disease 2019; J15.211 Pneumonia due to Methicillin susceptible Staphylococcus aureus; J96.01 Acute respiratory failure with hypoxia; E87.1 Hypo-osmolality and hyponatremia; E87.3 Alkalosis; J90 Pleural effusion, not elsewhere classified; Z99.11 Dependence on respirator [ventilator] status; E03.9 Hypothyroidism, unspecified; E11.649 Type 2 diabetes mellitus with hypoglycemia without coma; E11.65 Type 2 diabetes mellitus with hyperglycemia; E66.01 Morbid (severe) obesity due to excess calories; Z68.36 Body mass index [BMI] 36.0-36.9, adult; E78.5 Hyperlipidemia, unspecified; E87.6 Hypokalemia; F11.90 Opioid use, unspecified, uncomplicated; I10 Essential (primary) hypertension; I27.20 Pulmonary hypertension, unspecified; T38.0X5A Adverse effect of glucocorticoids and synthetic analogues, initial encounter; T50.2X5A Adverse effect of carbonic-anhydrase inhibitors, benzothiadiazides and other diuretics, initial encounter; I95.9 Hypotension, unspecified; J98.2 Interstitial emphysema; Z79.01 Long term (current) use of anticoagulants; Z79.2 Long term (current) use of antibiotics; Z79.4 Long term (current) use of insulin; Z79.890 Hormone replacement therapy; Z79.899 Other long term (current) drug therapy
CPT/HCPCS: 36415; 36573; 36600; 43246; 71045; 71046; 71275; 80048; 80053; 80202; 82533; 82805; 83036; 83615; 83735; 84132; 84145; 85025; 85027; 85379; 86140; 87070; 87077; 87086; 87186; 87205; 87635; 93306; 93970; 94002; 94003; 94640; 94660; 94760; 96374; 99285

== ENCOUNTER → 2021-11-27 | Outpatient (CLI) | payer MEDICARE ==
--- NOTE | 2021-11-28 09:54 | MM ---
Reason for Exam: Screening (asymptomatic). Last mammogram was performed 12 year(s) and 1 month(s) ago. Patient History: Menarche at age 15. Patient has no children. Postmenopausal. 11/13/1999, Benign Stereotactic Core Biopsy on the left side. Risk Values: Ilene 5 year model risk: 2.0%. NCI Lifetime model risk: 7.5%. Prior Study Comparison: 08/27/2005 Right Diagnostic Mammogram, [facility]. 02/27/2006 Bilateral Diagnostic Mammogram, [facility]. 11/07/2009 Bilateral Diagnostic Mammogram, [facility]. Tissue Density: There are scattered fibroglandular densities. Findings: Analyzed By CAD. Left breast biopsy clip. There is no suspicious group of microcalcifications or new suspicious mass in either breast. Overall Assessment: Negative, BI-RAD 1 Management: Screening Mammogram of both breasts in 1 year. A clinical breast exam by your physician is recommended on an annual basis and results should be correlated with mammographic findings. Electronically signed and approved by: Arnulfo Parker DO
== END | disposition home or self-care (01) ==
LOC: RADMAMWWP 11:58
PROVIDERS: ATTEND Internal Medicine
DX: Z12.31 Encounter for screening mammogram for malignant neoplasm of breast (principal); Z78.0 Asymptomatic menopausal state
CPT/HCPCS: 77063; 77067

== ENCOUNTER → 2022-11-28 | Outpatient (CLI) | payer MEDICARE ==
--- NOTE | 2022-11-28 12:59 | XR ---
EXAMINATION TYPE: XR lumbosacral spine min 4V DATE OF EXAM: 11/28/2022 CLINICAL HISTORY: pain COMPARISON: NONE TECHNIQUE: Frontal, lateral, and oblique images of the lumbar spine are obtained. FINDINGS: There are 5 lumbar type vertebral bodies identified. The lumbar spine shows satisfactory alignment without evidence of acute fracture or dislocation. Vertebral body heights are within normal limits. Mild multilevel degenerative disc space narrowing. Grade 1 anterolisthesis L4 and L5 of 3 mm . Moderate facet joint arthropathy. The overlying soft tissue appears unremarkable. IMPRESSION: No acute fracture or dislocation is seen in the lumbar spine.ICD 10 NO FRACTURE, INITIAL EVALUATION
== END | disposition home or self-care (01) ==
LOC: RADXRMAIN 11:59
PROVIDERS: ATTEND Internal Medicine
DX: M51.36 Other intervertebral disc degeneration, lumbar region (principal); M47.816 Spondylosis without myelopathy or radiculopathy, lumbar region; M43.16 Spondylolisthesis, lumbar region
CPT/HCPCS: 72110

== ENCOUNTER → 2023-07-29 | Outpatient (CLI) | payer MEDICARE ==
--- NOTE | 2023-07-30 07:49 | XR ---
EXAMINATION TYPE: XR chest 2V DATE OF EXAM: 07/29/2023 COMPARISON: 04/15/2021 TECHNIQUE: PA and lateral views submitted. HISTORY: Cough FINDINGS: The lungs are clear and there is no pneumothorax, pleural effusion, or focal pneumonia. Heart size normal and no overt failure. Osseous structures demonstrate hypertrophic and degenerative changes of the spine. Linear changes in the lateral margin of the right upper lobe likely related atelectasis or scarring. Arthropathy of the AC joints. IMPRESSION: 1. No acute process.
== END | disposition home or self-care (01) ==
LOC: RADXRMAIN 17:05
PROVIDERS: ATTEND Internal Medicine
DX: R05.9 Cough, unspecified (principal)
CPT/HCPCS: 71046